=== PATIENT | female | born 1970 | race African-American/Black ===

== ENCOUNTER → 2021-03-31 09:49 | Outpatient (BNVA) | payer MEDICAID, SELFPAY | PROVIDERS: PCP Internal Medicine; Visit Provider Surgery | DX: E66.01 Morbid (severe) obesity due to excess calories (principal); G47.33 Obstructive sleep apnea (adult) (pediatric); Z68.43 Body mass index [BMI] 50.0-59.9, adult; Z88.5 Allergy status to narcotic agent; Z88.6 Allergy status to analgesic agent; Z91.040 Latex allergy status; Z99.89 Dependence on other enabling machines and devices; Z79.899 Other long term (current) drug therapy | CPT/HCPCS: 99202 ==

== ENCOUNTER 2021-04-03 10:31 | Outpatient (REF) | payer MEDICAID, SELFPAY ==
--- NOTE | ~2021-04-03 | XR_ITS ---
EXAMINATION: XR CHEST CLINICAL INFORMATION: Shortness of breath COMPARISON: None TECHNIQUE: 2 views of the chest were obtained. FINDINGS: The lungs are well-expanded and clear. The heart size and pulmonary vascularity is normal. No gross bony abnormality seen. XR/XR chest 2V IMPRESSION: Unremarkable chest exam.
--- NOTE | 2021-04-03 10:42 | ECG_ITS ---
Test Reason : R06.02 Blood Pressure : / mmHG Vent. Rate : 058 BPM Atrial Rate : 058 BPM P-R Int : 144 ms QRS Dur : 098 ms QT Int : 454 ms P-R-T Axes : 053 056 036 degrees QTc Int : 445 ms Sinus bradycardia Possible Left atrial enlargement Left ventricular hypertrophy Abnormal ECG No previous ECGs available Referred By: Blanka Nunez Electronically Signed By:LIBAN SCHAEFER MD
[2021-04-03 11:20] LABS: MANUAL DIFF FLAG NO
[2021-04-03 11:37] LABS: Basophils Percent Auto 0.5 % (0-2); Eosinophils Absolute Auto 0.1 X10*3/uL (0.0-0.4); Hematocrit 39.1 % (37-47); Hemoglobin 12.3 g/dl (12.0-16.0); Imm Gran Abs Auto 0.03 X10*3/uL (0.00-0.03); Imm Gran Pct Auto 0.5 % (0.0-0.4); Lymphocytes Absolute Auto 1.7 X10*3/uL (1.2-4.9); Lymphocytes Percent Auto 26.8 % (20-40); Mean Corpuscular HGB Conc 31.5 g/dl (31.0-35.0); Mean Corpuscular Hemoglobin 27.8 pg (27.0-33.0); Mean Corpuscular Volume 88.3 fL (80-98); Mean Platelet Volume 10.1 fL (9.4-12.3); Monocytes Absolute Auto 0.5 X10*3/uL (0.1-1.2); Monocytes Percent Auto 7.5 % (2-11); Neutrophils Percent Auto 63.7 % (45-73); Platelet Count 285 X10*3/uL (160-400); Red Blood Count 4.43 X10*6/uL (4.20-5.50); Red Cell Distribution Width 13.2 % (11.0-16.0); White Blood Count 6.3 X10*3/uL (4.8-10.8)
[2021-04-03 12:18] LABS: Thyroid Stimulating Hormone 4.11 uIU/mL (0.32-4.0); Vitamin D 25-OH Total 17.2 ng/mL (>30)
[2021-04-03 12:24] LABS: Alanine Aminotransferase 18 U/L (0-31); Albumin Level 4.3 g/dL (3.5-5.0); Alkaline Phosphatase 103 U/L (39-117); Anion Gap 11 (12-20); Aspartate Amino Transferase 19 U/L (5-31); Bilirubin Total 0.7 mg/dL (0.0-1.0); Blood Urea Nitrogen 13 mg/dL (9-16); C Reactive Protein 0.53 mg/dL (< or = 0.50); Calcium 9.2 mg/dL (8.4-10.2); Carbon Dioxide 27 mmol/L (22-29); Chloride 105 mmol/L (96-108); Cholesterol 190 mg/dL; Estimated Glomerular Filt Rate > 60; Glucose Fasting 89 mg/dL (60-99); HDL Cholesterol 62 mg/dL; Iron 106 mcg/dL (30-160); LDL Cholesterol Calculated 111 mg/dl; Percent Iron Saturation 25 % (15-50); Potassium 4.3 mmol/L (3.3-5.1); Sodium 139 mmol/L (135-145); Total Iron Binding Capacity 431 mcg/dL (228-428); Total Protein 7.1 g/dL (6.5-8.0); Triglycerides 85 mg/dL; Unsaturated Iron Binding 325 ug/dL; Vitamin B12 240 pg/mL (200-900)
[2021-04-03 13:12] LABS: Estimated Average Glucose 105 mg/dL; Hemoglobin A1c % 5.3 %
[2021-04-05 10:26] LABS: Calcium (PTHI) 8.8 mg/dL (8.6-10.2); PTHI 60 pg/mL (14-64)
[2021-04-06 00:36] LABS: Zinc 71 mcg/dL (60-130)
[2021-04-07 13:27] LABS: Vitamin B1 9 nmol/L (8-30)
[2021-04-07 17:57] LABS: Vitamin A 34 mcg/dL (38-98)
== END 2021-04-03 10:32 | disposition home or self-care (01) ==
LOC: HO.LAB 10:31
PROVIDERS: PCP Internal Medicine; Visit Provider Surgery
DX: Z01.818 Encounter for other preprocedural examination (principal); R06.02 Shortness of breath; K91.2 Postsurgical malabsorption, not elsewhere classified; Z90.3 Acquired absence of stomach [part of]
CPT/HCPCS: 36415; 71046; 80053; 80061; 82306; 82607; 83036; 83540; 83970; 84425; 84443; 84590; 84630; 85025; 86140; 93005

== ENCOUNTER 2021-04-14 14:47 | Outpatient (REF) | payer MEDICAID, SELFPAY ==
[2021-04-15 14:57] LABS: H Pylori Breath Test DETECTED (NOT DETECTED)
== END 2021-04-14 14:48 | disposition home or self-care (01) ==
LOC: HO.LNP 14:47
PROVIDERS: Surgery; PCP Internal Medicine; Referring Provider Internal Medicine; Visit Provider Physician Assistant
DX: Z01.818 Encounter for other preprocedural examination (principal); E66.01 Morbid (severe) obesity due to excess calories; Z68.43 Body mass index [BMI] 50.0-59.9, adult; Z71.3 Dietary counseling and surveillance
CPT/HCPCS: 83013; 99212

== ENCOUNTER → 2021-04-28 10:05 | Outpatient (BNVA) | payer MEDICAID, SELFPAY | PROVIDERS: PCP Internal Medicine; Visit Provider Dietitian, Registered | DX: E66.01 Morbid (severe) obesity due to excess calories (principal) | CPT/HCPCS: 97802 ==

== ENCOUNTER → 2021-05-12 10:29 | Outpatient (BNVA) | payer MEDICAID, SELFPAY | PROVIDERS: PCP Internal Medicine; Visit Provider Surgery | DX: E66.01 Morbid (severe) obesity due to excess calories (principal); Z68.43 Body mass index [BMI] 50.0-59.9, adult | CPT/HCPCS: 99212 ==

== ENCOUNTER → 2021-05-19 08:24 | Outpatient (BNVA) | payer MEDICAID, SELFPAY | PROVIDERS: PCP Internal Medicine; Visit Provider Dietitian, Registered ==

== ENCOUNTER 2021-06-08 13:47 | Outpatient (REF) | payer MEDICAID, SELFPAY ==
[2021-06-10 15:07] LABS: H Pylori Breath Test NOT DETECTED (NOT DETECTED)
== END 2021-06-08 13:48 | disposition home or self-care (01) ==
LOC: HO.LNP 13:47
PROVIDERS: PCP Internal Medicine; Visit Provider Surgery
DX: E66.01 Morbid (severe) obesity due to excess calories (principal); Z68.43 Body mass index [BMI] 50.0-59.9, adult; Z11.0 Encounter for screening for intestinal infectious diseases
CPT/HCPCS: 83013; 99212

== ENCOUNTER → 2021-06-14 08:10 | Outpatient (BNVA) | payer MEDICAID, SELFPAY | PROVIDERS: PCP Internal Medicine; Visit Provider Dietitian, Registered | DX: E66.01 Morbid (severe) obesity due to excess calories (principal); Z68.43 Body mass index [BMI] 50.0-59.9, adult | CPT/HCPCS: 97803 ==

== ENCOUNTER → 2021-07-14 13:15 | Outpatient (BNVA) | payer MEDICAID, SELFPAY | PROVIDERS: PCP Internal Medicine; Referring Provider Internal Medicine; Visit Provider Surgery ==

== ENCOUNTER → 2021-08-09 13:58 | Outpatient (BNVA) | payer MEDICAID, SELFPAY | PROVIDERS: PCP Internal Medicine; Visit Provider Physician Assistant Surgical | DX: E66.01 Morbid (severe) obesity due to excess calories (principal); Z68.43 Body mass index [BMI] 50.0-59.9, adult | CPT/HCPCS: 99212 ==

== ENCOUNTER → 2021-10-17 08:13 | Outpatient (BNVA) | payer MEDICAID, SELFPAY | PROVIDERS: PCP Internal Medicine; Visit Provider Physician Assistant Surgical ==

== ENCOUNTER → 2021-12-26 08:17 | Outpatient (BNVA) | payer MEDICAID, SELFPAY | PROVIDERS: PCP Internal Medicine; Visit Provider Physician Assistant Surgical ==

== ENCOUNTER 2024-05-04 12:52 | Outpatient (REF) | payer MEDICAID, SELFPAY ==
[2024-05-05 01:46] LABS: CT PCR NOT DETECTED (Not Detect.); NG PCR NOT DETECTED (Not Detect.)
[2024-05-05 11:51] LABS: Bacterial Vaginosis PCR NEGATIVE (Negative); Candida Group PCR NOT DETECTED (Not Detect); Candida glab krusei PCR NOT DETECTED (Not Detect); Trichomonas vaginalis PCR NOT DETECTED (Not Detect)
== END 2024-05-04 12:53 | disposition home or self-care (01) ==
LOC: HO.LNP 12:52
PROVIDERS: PCP Internal Medicine; Visit Provider Advanced Practice Midwife
DX: Z01.419 Encounter for gynecological examination (general) (routine) without abnormal findings (principal); E66.01 Morbid (severe) obesity due to excess calories
CPT/HCPCS: 0352U; 87491; 87591; 88175; 99386

== ENCOUNTER 2024-05-04 12:52 | Outpatient (AMB) | payer MEDICAID, SELFPAY ==
--- NOTE | 2024-05-04 13:41 | MHC.OFFVIS ---
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 Allergies acetaminophen [From Percocet] Allergy (Unknown, Verified 08/09/21 14:12) RASH latex [Latex] Allergy (Unknown, Verified 08/09/21 14:12) ITCHY, RASH , AND FUNGUS Opioids - Morphine Analogues Adverse Reaction (Severe, Verified 08/09/21 14:12) Shortness of Breath From Percocet Allergy (Unknown, Uncoded 08/09/21 14:12) RASH Medication List - Last Reconciled 05/04/24 by Anais Clark CNM albuterol sulfate 90 mcg/actuation (Proventil HFA) 2 puffs inhalation Q6H PRN benzonatate 100 mg PO TID cholecalciferol (vitamin D3) 1,250 mcg PO QWEEK fexofenadine 180 mg PO DAILY furosemide 40 mg PO DAILY ibuprofen 800 mg PO TID vitamin A palmitate 20,000 units PO DAILY 30 days Is last menstrual period known: Yes (Said she had a lot of blood and a big clot, cramping down legs) Last menstrual period: 04/30/24 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 Patient has moved from [place] to [facility] in [place] in November and she wants to locate all of her healthcare in [place] because it is easier to get to now. She is overweight she is hoping she can get the injection to help her with weight loss when she sees her new PCC who she meets in May. She also has been referred to see an orthopedic doctor because her knees very bad. Additionally because of the weight her heart beats very slow and she is on medication to help her excrete more urine/Lasix. Also for the last 2 years her periods have become much heavier and cramp ear and hurt her legs and her abdomen and her back. She gets hot flashes but shows no other signs of menopause yet her mother went through menopause at age 47. She has 6 children all born in [place] and the oldest is in the 30s. She is being seen today in the [facility] office at the [address] site and she used to come to the [facility] for primary Care years ago and is glad to be coming back here. [facility] Medical History Acute appendicitis Acute bacterial tonsillitis Anal fistula Enlarged lymph node Family history of heart murmur History of anxiety History of asthma History of claustrophobia History of knee problem Hx of bursitis Hx of chronic arthritis Hx of tendinitis Kidney stone Sinus complaint Sterilization Vesicular dermatitis Surgical History History of Achilles tendon repair History of kidney surgery Hx of appendectomy Hx of breast surgery Hx of cholecystectomy Hx of knee surgery Hx of tonsillectomy Hx of tubal ligation Family History Mother Accelerated hypertension Arthritis Cancer of stomach Father Arthritis Sister No problems noted. Sister Arthritis Accelerated hypertension Sister No problems noted. Sister No problems noted. Brother Overdose Brother HIV disease Son Asthma Son No problems noted. Son No problems noted. Son No problems noted. Daughter No problems noted. Social History Alcohol intake: never Patient Tobacco Use Status: Never used Tobacco Female Reproductive History Menstrual Age of Menarche: 14 Duration of menses: >10 days Date of last menstrual period: 04/30/24 Total pregnancies: 7 Number of Living Children: 5 Ab induced: 1 Ab spontaneous: 1 History of abnormal pap smear: No History of STI: No Physical Exam Vital Signs: Last Vital Signs BP 146/86 H 05/04/24 13:43 BMI result Body Mass Index 53.9 Const Other: Obesity especially lower body and legs. General: healthy appearing, comfortable, no acute distress, well developed and alert Nutritional Appearance: average body habitus and obese Orientation/consciousness: patient oriented x3 Limitations: no limitations HEENT Head: Yes normocephalic Neck Neck: Yes normal visual inspection Thyroid: Thyroid normal Chest Chest palpation & inspection: normal inspection of the chest Breast/axilla inspection: normal inspection of the breasts and normal inspection of the axillae Breast/axilla palpation: normal palpation of the breasts and normal palpation of the axillae Resp Effort & Inspection: normal respiratory effort GI Inspection: Yes normal to inspection, No Abdominal wall edema and No distended Palpation (GI): Soft to palpation and nontender Other: Pelvic exam limited by obesity habitus. Vagina pink and moist mucosa healthy cervix visualized briefly for Pap pink smooth healthy appearing but limited visualization uterus difficult to palpate secondary to habitus adnexa difficult to palpate neither tender. Good muscle tone. General: Yes bladder normal to palpation External Female Exam: normal external appearance and normal appearance of the urethra Speculum Exam - Vagina: normal appearance of the vagina, normal palpation and normal vaginal discharge Speculum Exam - Cervix: normal appearance of the cervix, normal palpation and nontender Bimanual exam- vagina & uterus: normal bimanual exam, normal palpation, uterine size normal, bladder normal to palpation, consistency normal, normal palpation, uterine mobility normal, uterine shape normal, No Cervical tenderness present, non-tender and no cervical motion tenderness Bimanual Exam- Adnexa, other: normal adnexae, no masses, normal and No adnexal tenderness Neuro General: patient oriented x3 Assessment & Plan Assessment & Plan (1) Morbid obesity with BMI of 50.0-59.9, adult: Code(s): E66.01 - Morbid (severe) obesity due to excess calories; Z68.43 - Body mass index [BMI] 50.0-59.9, adult Category: Medical (2) History of menorrhagia: Comment: Worse the last 2 yrs Code(s): Z87.42 - Personal history of other diseases of the female genital tract Category: Medical (3) Left leg swelling: Code(s): M79.89 - Other specified soft tissue disorders Category: Medical Plan -----Discussed in this visit the following: healthy balanced diet, regular and consistent exercise, getting recommended health screens, doing the best she can for her particular health concerns, kegel exercises, pap smear screening and followup recommendations, mammography screening and SBE, normal changes in cycles in her life stage--- . She says she is up-to-date on her mammograms. She got it most recently Jennifer Rivera. She thinks she might have had an abnormal Pap a few years ago but those records are not included in records that were found from [facility]. In regards to her heavy menses I offered to order a pelvic ultrasound to see if she might have fibroids were some other reason for the heavy menstrual flow with blood clots. She will be meeting her new primary care provider soon, and plans to ask for the injection to help her with weight loss. She would otherwise be interested in the surgery as well but she wants to try the medication 1st. She also has a referral pending for orthopedics to deal with her knees and also for Cardiology to deal with her heart.. She and I will have a visit after the ultrasound to review the results. If there are fibroids or some other finding that requires gynecologic consultation she will be referred appropriately. Her Pap smear was done but with some difficulty secondary to habitus prohibiting any easy visualization cervix but did appear pink and with health mucosa that was moist consistent with premenopausal status. No abnormal discharge noted Orders: Orders US pelvic and transvaginal Today E66.01 - Morbid (severe) obesity due to excess calories, Z68.43 - Body mass index [BMI] 50.0-59.9, adult, Z87.42 - Personal history of other diseases of the female genital tract Coding Level of Care Code New Pt Prev Care 40-64y(16769) Diagnoses Morbid obesity with BMI of 50.0-59.9, adult E66.01; Z68.43 History of menorrhagia Z87.42 Left leg swelling M79.89
[2024-05-04 13:43] VITALS: BP 146/86; BMI 53.9
== END 2024-05-04 15:07 | disposition home or self-care (01) ==
LOC: HO.HWSM 12:52
PROVIDERS: PCP Internal Medicine; Visit Provider Advanced Practice Midwife
DX: Z01.419 Encounter for gynecological examination (general) (routine) without abnormal findings (principal); M79.89 Other specified soft tissue disorders; E66.01 Morbid (severe) obesity due to excess calories; Z68.43 Body mass index [BMI] 50.0-59.9, adult; Z87.42 Personal history of other diseases of the female genital tract
CPT/HCPCS: 99386

== ENCOUNTER 2024-05-14 11:41 | Emergency (ER) | payer MEDICAID, SELFPAY ==
[2024-05-14 12:19] VITALS: BP 174/74; PULSE 62; RESP 20; TEMP 36.7; O2SAT 97; BMI 57.4
--- NOTE | 2024-05-14 12:19 | ECG_ITS ---
Test Reason : CHEST PAIN Blood Pressure : / mmHG Vent. Rate : 062 BPM Atrial Rate : 062 BPM P-R Int : 154 ms QRS Dur : 094 ms QT Int : 432 ms P-R-T Axes : 051 053 042 degrees QTc Int : 438 ms Normal sinus rhythm Normal ECG When compared with ECG of 03-APR-2021 10:50, No significant change was found Referred By: Generic ED Physician Electronically Signed By:LIBNA SCHAEFER MD
[2024-05-14 12:32] VITALS: BP 149/64; PULSE 61; RESP 20; TEMP 36.8; O2SAT 96
[2024-05-14 12:43] LABS: MANUAL DIFF FLAG NO
[2024-05-14 12:45] LABS: Appearance Urine Clear; Color Urine Yellow; Glucose Urine UA Negative (Negative); Leukocyte Esterase Urine Small (1+) (Negative); Nitrite Urine Negative (Negative); PH 7.5 (5.0-9.0); UMIC TRIGGER UACC YES; Urine Blood Negative (Negative); Urine Ketones Negative (Negative); Urine Protein Negative (Neg-Trace)
[2024-05-14 12:48] LABS: Bacteria Urine 1+ (None Seen); Basophils Percent Auto 0.6 % (0-2); Eosinophils Absolute Auto 0.1 X10*3/uL (0.0-0.4); Eosinophils Percent Auto 1.1 % (0-4); Hematocrit 40.4 % (37.0-47.0); Hemoglobin 12.7 g/dl (12.0-16.0); Hyaline Casts Urine 0-2 /LPF (0-2); Imm Gran Abs Auto 0.05 X10*3/uL (0.00-0.03); Imm Gran Pct Auto 0.8 % (0.0-0.4); Lymphocytes Absolute Auto 1.9 X10*3/uL (1.2-4.9); Lymphocytes Percent Auto 29.8 % (20-40); Mean Corpuscular HGB Conc 31.4 g/dl (31.0-35.0); Mean Corpuscular Volume 89.2 fL (80.0-98.0); Mean Platelet Volume 9.7 fL (9.4-12.3); Monocytes Absolute Auto 0.4 X10*3/uL (0.1-1.2); Neutrophils Absolute Auto 3.8 x10*3/uL (2.0-8.3); Neutrophils Percent Auto 60.7 % (45-73); Platelet Count 258 X10*3/uL (160-400); RBC Urine 0-2 /HPF (0-2); Red Blood Count 4.53 X10*6/uL (4.20-5.50); Red Cell Distribution Width 13.3 % (11.0-16.0); UACC Culture Trigger YES; White Blood Count 6.3 X10*3/uL (4.8-10.8)
[2024-05-14] MEDS: 0.9 % Sodium Chloride 1,000 ML 999 ML IV (12:52)
[2024-05-14 13:00] LABS: Alanine Aminotransferase 17 U/L (0-31); Albumin Level 4.2 g/dL (3.5-5.0); Alkaline Phosphatase 122 U/L (39-117); Anion Gap 12 (12-20); Aspartate Amino Transferase 16 U/L (5-31); Bilirubin Total 0.3 mg/dL (0.0-1.0); Blood Urea Nitrogen 14 mg/dL (9-16); Calcium 9.5 mg/dL (8.4-10.2); Carbon Dioxide 30 mmol/L (22-29); Chloride 102 mmol/L (96-108); Creatinine Clr Calc Pharmacy 181.6; Estimated Glomerular Filt Rate > 60; Glucose Random 96 mg/dL (60-115); Magnesium 1.9 mg/dL (1.6-2.6); Potassium 4.3 mmol/L (3.3-5.1); Sodium 140 mmol/L (135-145); Total Protein 7.4 g/dL (6.5-8.0)
--- NOTE | 2024-05-14 14:33 | ED.CHESTPAIN ---
HPI - Chest Pain General Chief Complaint: Chest Pain Stated Complaint: Dizziness Time Seen by Provider: 05/14/24 13:36 Source: patient Mode of arrival: ambulatory History of Present Illness ED Provider: Dr Alvarado HPI narrative: 54-year-old female who within the triage note reports some dizziness and lightheadedness for the past 5 days, has recently recovered from COVID 19 and does report associated nausea with the dizziness but otherwise also reports some shortness of breath but when asked about chest pain she denies and she also denies GI or symptoms. Related Data Home Medications ?Medication ?Instructions ?Recorded ?Confirmed albuterol sulfate 90 mcg/actuation 2 puff inhalation Q6H PRN 03/31/21 05/04/24 aerosol inhaler (Proventil HFA) benzonatate 100 mg capsule 100 mg PO TID 03/31/21 05/04/24 fexofenadine 180 mg tablet 180 mg PO DAILY 03/31/21 05/04/24 ibuprofen 800 mg tablet 800 mg PO TID 03/31/21 05/04/24 furosemide 40 mg tablet 40 mg PO DAILY 05/04/24 05/04/24 Previous Rx's ?Medication ?Instructions ?Recorded cholecalciferol (vitamin D3) 1,250 1,250 mcg PO QWEEK #4 caps 04/03/21 mcg (50,000 unit) capsule vitamin A palmitate 3,000 mcg 20,000 unit PO DAILY 30 days #60 04/17/21 (10,000 unit) tablet tabs nitrofurantoin 100 mg PO Q12H 5 days #10 caps 05/14/24 monohydrate/macrocrystals 100 mg capsule (Macrobid) Allergies Allergy/AdvReac Type Severity Reaction Status Date / Time acetaminophen [From Percocet] Allergy Unknown RASH Verified 05/14/24 12:22 latex [Latex] Allergy Unknown ITCHY, Verified 05/14/24 12:22 RASH , AND FUNGUS Opioids - Morphine Analogues AdvReac Severe Shortness Verified 05/14/24 12:22 of Breath From Percocet Allergy Unknown RASH Uncoded 08/09/21 14:12 Review of Systems Review of Systems: Pertinent positives and negatives as stated in HPI PMF Past Medical History Source: nursing notes reviewed Medical History Anal fistula Sinus complaint Sterilization Kidney stone Acute appendicitis Vesicular dermatitis Enlarged lymph node Acute bacterial tonsillitis History of claustrophobia History of anxiety Hx of tendinitis Hx of bursitis History of knee problem Hx of chronic arthritis Family history of heart murmur History of asthma Surgical History History of kidney surgery Hx of tubal ligation Hx of tonsillectomy Hx of breast surgery Hx of appendectomy Hx of cholecystectomy Hx of knee surgery History of Achilles tendon repair Family History Family History Mother Accelerated hypertension Arthritis Cancer of stomach Father Arthritis Sister No problems noted. Sister Arthritis Accelerated hypertension Sister No problems noted. Sister No problems noted. Brother Overdose Brother HIV disease Son Asthma Son No problems noted. Son No problems noted. Son No problems noted. Daughter No problems noted. Social History Social History Alcohol intake: former Patient Tobacco Use Status: Never used Tobacco Smoked in Last 30 Days: No Use of substances other than those prescribed or required for medical reasons: No Advance Directives: No Advance Directives Information Provided: Yes Do you have a plan to hurt others: No Plan Physical Exam Vital Signs: Vital Signs: Last Vital Signs Temp 98.1 F 05/14/24 15:10 Pulse 62 05/14/24 15:10 Resp 17 05/14/24 15:10 BP 155/79 H 05/14/24 15:10 Pulse Ox 97 05/14/24 15:10 O2 Del Method Room Air 05/14/24 15:10 BMI result Body Mass Index 57.4 VITAL SIGNS: Reviewed. GENERAL: Elevated BMI, Well developed, well nourished, in no acute distress. HEAD: Normocephalic/atraumatic EYES: PERRLA, EOMI EARS: Ext canals without abnormality NOSE: Nares patent bilateral OROPHARYNX: no oral lesions noted, posterior pharynx clear NECK: Supple, no adenopathy LUNGS: Normal breath sounds. No adventitious sounds or accessory muscle use. SpO2<96> CARDIOVASCULAR: Regular rate and rhythm without noted murmurs, no JVD or lower extremity edema. ABDOMEN: Soft, non-tender, non-distended with bowel sounds. MUSCULOSKELETAL: No tenderness, deformities, or effusions noted on gross inspection. EXTREMITIES: No cyanosis, clubbing or edema. SKIN: Inspection of the skin reveals no rashes NEUROLOGIC: Alert and oriented x 4. Strength and sensation to light touch were grossly intact x 4, no facial asymmetry, no pronator drift, cranial nerves 2-12 are grossly intact. Medications Administered Discontinued Medications Generic Name Dose Route Start Last Admin Trade Name Freq PRN Reason Stop Dose Admin Sodium Chloride 1,000 mls @ 999 mls/hr 05/14/24 12:30 05/14/24 12:52 Ns IV 05/14/24 13:30 999 mls/hr .Q1H1M SHERLYN Administration Medical Decision Making Medical Decision Making MDM Narrative: 54-year-old female with history and clinical presentation, DDX: Post COVID symptoms, poor oral intake, vertigo, will evaluate for cardiac etiology. I reviewed and interpreted all investigations and hematologic indices are negative for leukocytosis/anemia/thrombocytopenia. Chemistry indices do not demonstrate an ADELSO or electrolyte/liver enzyme derangements and high sensitivity troponin is undetectable and there are no acute changes on EKG. Urinalysis demonstrates leukocyte esterase as well as wbc's with some bacteria. EKG: Normal sinus rhythm, HR-62, no STEMI, NV/QRS/QTC is within normal limits. My interpretation is patient may be feeling some residual post COVID symptoms but also will be empirically treated for urinary tract infection and instructed to follow-up with the primary care doctor. Differential Diagnosis Differential Diagnoses: The differential diagnosis associated with the presentation includes Please see the discussion above Admission/Observation Consideration of admission/observation: Escalation of care including admission/observation considered Please see the discussion above Lab Data [facility] Lab Attestation statement: I reviewed the patient's lab results. Please see the discussion above 05/14/24 12:35 05/14/24 12:35 Labs: Lab Results 05/14/24 Range/Units 12:35 WBC 6.3 (4.8-10.8) X10*3/uL RBC 4.53 (4.20-5.50) X10*6/uL Hgb 12.7 (12.0-16.0) g/dl Hct 40.4 (37.0-47.0) % MCV 89.2 (80.0-98.0) fL MCH 28.0 (27.0-33.0) pg MCHC 31.4 (31.0-35.0) g/dl RDW 13.3 (11.0-16.0) % Plt Count 258 (160-400) X10*3/uL MPV 9.7 (9.4-12.3) fL Immature Gran % (Auto) 0.8 H (0.0-0.4) % Neut % (Auto) 60.7 (45-73) % Lymph % (Auto) 29.8 (20-40) % [place] % (Auto) 7.0 (2-11) % Eos % (Auto) 1.1 (0-4) % Baso % (Auto) 0.6 (0-2) % Lymph # (Auto) 1.9 (1.2-4.9) X10*3/uL [place] # (Auto) 0.4 (0.1-1.2) X10*3/uL Eos # (Auto) 0.1 (0.0-0.4) X10*3/uL Baso # (Auto) 0.0 (0.0-0.2) X10*3/uL Abs Immat Gran (auto) 0.05 H (0.00-0.03) X10*3/uL Absolute Neuts (auto) 3.8 (2.0-8.3) x10*3/uL Absolute Nucleated RBC 0.000 (0.0-0.012) X10*3/uL Nucleated RBC % (auto) 0.0 (0.0-0.2) /100WBC Sodium 140 (135-145) mmol/L Potassium 4.3 (3.3-5.1) mmol/L Chloride 102 (96-108) mmol/L Carbon Dioxide 30 H (22-29) mmol/L Anion Gap 12 (12-20) BUN 14 (9-16) mg/dL Creatinine 0.63 (0.5-1.4) mg/dL Estim Creat Clear Calc 181.6 Estimated GFR > 60 Random Glucose 96 (60-115) mg/dL Calcium 9.5 (8.4-10.2) mg/dL Magnesium 1.9 (1.6-2.6) mg/dL Total Bilirubin 0.3 (0.0-1.0) mg/dL AST 16 (5-31) U/L ALT 17 (0-31) U/L Alkaline Phosphatase 122 H (39-117) U/L Troponin I High Sens < 2.7 (<3.5-17.0) ng/L B-Natriuretic Peptide 15 (<100) pg/mL Total Protein 7.4 (6.5-8.0) g/dL Albumin 4.2 (3.5-5.0) g/dL Urine Color Yellow Urine Appearance Clear Urine pH 7.5 (5.0-9.0) Ur Specific [place] 1.020 (1.005-1.025) Urine Protein Negative (Neg-Trace) mg/dL Urine Glucose (UA) Negative (Negative) mg/dL Urine Ketones Negative (Negative) mg/dL Urine Blood Negative (Negative) Urine Nitrite Negative (Negative) Ur Leukocyte Esterase Small (1+) H (Negative) Urine RBC 0-2 (0-2) /HPF Urine WBC 6-10 H (0-5) /HPF Ur Squamous Epith Cells 6-10 (0-2) /HPF Urine Bacteria 1+ (None Seen) Hyaline Casts 0-2 (0-2) /LPF Independent Interpretation I performed an independent interpretation of an: EKG Interpretation: Please see the discussion above External Record Review External record reviewed: Outpatient record, Prior outpatient labs and Prior outpatient radiology Chronic Conditions Patient?s care impacted by: Hypertension Critical Care Time Critical Care Time Critical Care Time: Yes Total Critical Care Time: 30 Attestation: I personally attest to this time spent taking care of the patient. Discharge Plan Discharge Clinical Impression: Urinary tract infection, Light-headedness Patient Disposition: Home, Self-Care Instructions: Urinary Tract Infection in Women (ED), Lightheadedness (ED) Additional Instructions: 1. Resume all home medications as prescribed. 2. Complete the entire course of antibiotics as prescribed. And continue to drink plenty of water. 3. Follow-up with your primary care doctor. Return to the ER for any worsening symptoms. Prescriptions: New nitrofurantoin monohyd/m-cryst [Macrobid] 100 mg capsule 100 mg PO Q12H 5 Days Qty: 10 0RF Rx Instructions: must administer with a meal/food No Action cholecalciferol (vitamin D3) 1,250 mcg (50,000 unit) capsule 1,250 mcg PO QWEEK Qty: 4 1RF vitamin A palmitate 10,000 unit tablet 20,000 unit PO DAILY 30 Days Qty: 60 0RF ibuprofen 800 mg tablet 800 mg PO TID albuterol sulfate [Proventil HFA] 90 mcg/actuation HFA aerosol inhaler 2 puff inhalation Q6H PRN benzonatate 100 mg capsule 100 mg PO TID fexofenadine 180 mg tablet 180 mg PO DAILY furosemide 40 mg tablet 40 mg PO DAILY Print Language: Citizen [place]
[2024-05-14 15:05] LABS: B Type Natriuretic Peptide 15 pg/mL (<100)
[2024-05-14 15:09] LABS: Troponin-I High Sensitivity < 2.7 ng/L (<3.5-17.0)
[2024-05-14 15:10] VITALS: BP 155/79; PULSE 62; RESP 17; TEMP 36.7; O2SAT 97
[2024-05-14 16:23] VITALS: BP 128/59; PULSE 64; RESP 18; TEMP 37.1; O2SAT 98
[2024-05-14] MEDS: Nitrofurantoin Monohyd/M-Cryst 100 MG CAPSULE PO (16:24)
== END 2024-05-14 16:39 | disposition home or self-care (01) ==
PROVIDERS: Physician Assistant Medical; Emergency Provider Student in an Organized Health Care Education/Training Program
DX: N39.0 Urinary tract infection, site not specified (principal); R42 Dizziness and giddiness; R07.9 Chest pain, unspecified; R11.0 Nausea; R06.02 Shortness of breath; Z79.899 Other long term (current) drug therapy
CPT/HCPCS: 36415; 80053; 81001; 83735; 83880; 84484; 85025; 87086; 93005; 96360; 96361; 99284; 99285

== ENCOUNTER → 2024-05-14 12:19 | Outpatient (BNV) | payer MEDICAID, SELFPAY | PROVIDERS: Emergency Provider Student in an Organized Health Care Education/Training Program; Visit Provider Internal Medicine Cardiovascular Disease | DX: R07.9 Chest pain, unspecified (principal) | CPT/HCPCS: 93010 ==

== ENCOUNTER 2024-05-20 10:31 | Outpatient (REF) | payer MEDICAID, SELFPAY ==
--- NOTE | ~2024-05-20 | US_ITS ---
EXAMINATION: US PELVIS CLINICAL INFORMATION: Menorrhagia COMPARISON: None available. TECHNIQUE: Ultrasound of the pelvis is performed using both transabdominal and transvaginal transducers along with Doppler. Transvaginal imaging is performed due to inadequate visualization transabdominally. FINDINGS: Uterus: The anteverted uterus is normal in size and echotexture measuring 8.3 x 3.6 x 4.6 cm with a normal endometrial thickness of 6 mm. Small endocervical nabothian cysts are noted. Adnexa: The right ovary measures 3.3 x 2 0.0, 0.1 0.8 cm. The left ovary measures 1.6 x 1.6 x 1.2 cm and contains an 18 mm follicle. (No specific imaging follow-up is needed). No free fluid is detected in the cul-de-sac. US/US pelvic and transvaginal IMPRESSION: Unremarkable pelvic ultrasound
== END 2024-05-20 10:32 | disposition home or self-care (01) ==
LOC: HO.US 10:31
PROVIDERS: PCP Internal Medicine; Visit Provider Advanced Practice Midwife
DX: E66.01 Morbid (severe) obesity due to excess calories (principal); Z68.43 Body mass index [BMI] 50.0-59.9, adult; Z87.42 Personal history of other diseases of the female genital tract
CPT/HCPCS: 76830; 76856

== ENCOUNTER → 2024-05-28 14:41 | Outpatient (BNVA) | payer MEDICAID, SELFPAY | PROVIDERS: PCP Family Medicine; Visit Provider Physician Assistant Surgical ==

== ENCOUNTER 2024-06-05 13:56 | Outpatient (AMB) | payer MEDICAID, SELFPAY ==
--- NOTE | 2024-06-05 14:38 | MHC.OFFVIS ---
Vital Signs 06/05/24 14:40 Height 5 ft 8 in Weight 376 lb 9 oz BMI 57.2 Handedness Right Intake Visit Reasons: N/P B/L hand CTS EMG done years ago Intake Note: Ladonna is a 54 year old right hand dominant female who presents today as a new patient with complaints of bilateral hand pain and numbness. Right hand is worse than left hand. Patient states she has been having pain and numbness since 2010 but it worsened 4-5 months ago. She is unable to sleep due to her symptoms so she has to shake her hands. She says her pain, numbness and tingling starts at her 3rd, 4th, and 5th digit of both hands and radiates up her arm into her elbows and to her neck. She has difficulty with gripping, grasping, holding objects and lifting. She has dropped objects due to weakness in her hands. She describes the tingling in her hands as electrical current that does not go away. EMG was done many years ago in [id number] in [facility]. Loss Prevention Detective Required: Yes Loss Prevention Detective Language: [employer] Name: [id number] Allergies acetaminophen [From Percocet] Allergy (Unknown, Verified 06/11/24 14:44) RASH latex [Latex] Allergy (Unknown, Verified 06/11/24 14:44) ITCHY, RASH , AND FUNGUS Opioids - Morphine Analogues Adverse Reaction (Severe, Verified 06/11/24 14:44) Shortness of Breath From Percocet Allergy (Unknown, Uncoded 06/05/24 14:49) RASH HPI HPI N/P B/L hand CTS EMG done years ago : Details: Patient is a 54-year-old female who presents for evaluation of bilateral hand pain and numbness, ongoing since approximately 2010. However, the patient reports that she experienced an acute worsening of her symptoms approximately 4-5 months ago.. Patient reports that her symptoms are intermittent, but daily, and worse at night, and then her symptoms regularly prevent her from sleeping or wake her from sleep. The patient reports that she did have an EMG done previously at [facility] in approximately 2011. 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 Patient reports that her her and numbness in his 3rd, 4th, 5th digits of bilateral hands. Patient reports that her right hand is worse than her left hand. Patient reports that her numbness comes and goes, but that she has a constant ?electrical tingling? in those digits. The patient also reports that she is experiencing pain on the radial and volar aspect of bilateral wrists with both flexion and extension. No other acute complaints or concerns at this time. [facility] Medical History Anal fistula Sinus complaint Sterilization Kidney stone Acute appendicitis Vesicular dermatitis Enlarged lymph node Acute bacterial tonsillitis History of claustrophobia History of anxiety Hx of tendinitis Hx of bursitis History of knee problem Hx of chronic arthritis Family history of heart murmur History of asthma Surgical History History of kidney surgery Hx of tubal ligation Hx of tonsillectomy Hx of breast surgery Hx of appendectomy Hx of cholecystectomy Hx of knee surgery History of Achilles tendon repair Family History Mother Accelerated hypertension Arthritis Cancer of stomach Father Arthritis Sister No problems noted. Sister Arthritis Accelerated hypertension Sister No problems noted. Sister No problems noted. Brother Overdose Brother HIV disease Son Asthma Son No problems noted. Son No problems noted. Son No problems noted. Daughter No problems noted. Social History Alcohol intake: former Patient Tobacco Use Status: Never used Tobacco Advance Directives: No Advance Directives Information Provided: No Female Reproductive History Menstrual Age of Menarche: 14 Review of Systems Const All systems reviewed & are unremarkable except as noted in HPI and below Physical Exam Vital Signs: BMI result Body Mass Index 57.2 Extrem Other: Patient is alert, oriented, and in no acute distress. Neuro: Patient reports normal sensation in the median and ulnar nerve distributions of bilateral hands Vascular: Cap refill brisk Pain: Patient reports tenderness to palpation over the volar and radial wrist over the FCR tendon of bilateral wrists Patient reports no other tenderness to palpation at this time ROM: Patient is able to make a closed fist bilaterally Good finger cross Good APB muscle belly firing bilaterally Patient does report pain on the volar and radial aspect of bilateral wrists with extension and flexion Skin: No lacerations or abrasions. General: No ecchymosis, erythema, or evidence of infection. Psych: Appears grossly normal Affect normal Attitude cooperative Assessment & Plan Assessment & Plan (1) Flexor carpi radialis tendinitis: Code(s): M77.8 - Other enthesopathies, not elsewhere classified Category: Medical (2) Numbness and tingling in both hands: Code(s): R20.0 - Anesthesia of skin; R20.2 - Paresthesia of skin Category: Medical Plan 1. Numbness and tingling of bilateral hands Ongoing since approximately 2009 or 2010 Patient has no current nerve conduction study Therefore, patient is referred for new nerve conduction study Patient is amenable to this plan 2. FCR tendinitis, bilateral Patient is referred to occupational hand therapy for bilateral FCR tendinitis Patient is educated that tendinitis is not typically a short term course of rehab, and can take weeks to even months to resolve fully Patient is amenable to this plan Patient will follow-up after nerve conduction study for EMG review and discussion of further treatment options Orders: Orders NE nerve conduction velocity 06/05/24 R20.0 - Anesthesia of skin, R20.2 - Paresthesia of skin OT Evaluation and Treatment 06/05/24 M77.8 - Other enthesopathies, not elsewhere classified NE electromyogram (EMG) 06/05/24 R20.0 - Anesthesia of skin, R20.2 - Paresthesia of skin Coding Level of Care Code New Pt Level 3 (67643) Diagnoses Flexor carpi radialis tendinitis M77.8 Numbness and tingling in both hands R20.0; R20.2
[2024-06-05 14:40] VITALS: BMI 57.2
== END 2024-06-05 15:37 | disposition home or self-care (01) ==
LOC: HO.HOS 13:56
PROVIDERS: PCP Family Medicine
DX: M77.8 Other enthesopathies, not elsewhere classified (principal); R20.0 Anesthesia of skin; R20.2 Paresthesia of skin
CPT/HCPCS: 99203

== ENCOUNTER → 2024-06-05 13:56 | Outpatient (BNVA) | payer MEDICAID, SELFPAY | PROVIDERS: PCP Family Medicine | DX: G56.03 Carpal tunnel syndrome, bilateral upper limbs (principal); M77.8 Other enthesopathies, not elsewhere classified; R20.0 Anesthesia of skin; R20.2 Paresthesia of skin | CPT/HCPCS: 99212 ==

== ENCOUNTER 2024-06-11 13:51 | Emergency (ER) | payer OTHER, SELFPAY ==
--- NOTE | ~2024-06-11 | CT_ITS ---
EXAMINATION: CT CHEST WITH CONTRAST CLINICAL INFORMATION: Mediastinal mass. Etiology? COMPARISON: Abdomen CT from 06/11/2024. TECHNIQUE: Multidetector volumetric CT imaging of the chest was obtained after the administration of 65 mL of Omnipaque 350 intravenous contrast without immediate adverse reactions. Axial MIP volume rendering provided. Sagittal and coronal reformatted images were obtained. This CT examination was performed using dose optimization techniques as appropriate, variously including the following: *Automated exposure control *Adjustment of mA and/or kV according to patient size (this includes techniques or standardized protocols for targeted exams where dose is matched to indication/reason for exam; i.e. extremities or head) *Use of iterative reconstruction technique DLP: 729 mGy-cm FINDINGS: LUNGS AND PLEURA: Trachea and central airways are widely patent and normal in caliber. Mild paraseptal emphysema at lung apices. No pneumothorax or pleural effusion. Small 0.2 cm subpleural nodule in the left upper lobe (image 170, series 5). Based on Fleischner Society guidelines, no chest CT imaging follow-up is recommended in a low-risk patient. Follow-up may be considered optional at 12 months in a high risk patient and if stable at 12 months, then no additional follow-up would be recommended. No suspicious lung nodule or mass. CARDIOVASCULAR: The heart size is normal. No pericardial effusion. Pulmonary arteries and thoracic aorta are normal in caliber. Mild atherosclerotic calcification of the aortic arch. CORONARY ARTERY CALCIFICATION: None detected. MEDIASTINUM AND LOWER NECK: The visualized portion of the thyroid gland and esophagus are normal. A mild amount of soft tissue attenuation intermixed with the mediastinal fat is present in the anterosuperior mediastinum and this likely represents a mild amount of residual thymic tissue. However, there is no mass. LYMPHATICS: No pathologic sized lymph nodes. UPPER ABDOMEN: Patient has a large body habitus and there is mild hepatosplenomegaly. The spleen measures up to 14 cm maximum dimension. Adrenal glands are normal. Status post cholecystectomy. SKELETAL AND CHEST WALL: No chest wall mass. Mild spondylosis of the thoracic spine. No acute or suspicious osseous abnormality. CT/CT chest w IV con IMPRESSION: * There is likely a mild amount of residual thymic tissue within the anterosuperior mediastinum. * No mediastinal mass or lymphadenopathy. * The patient has a large body habitus and there is mild hepatosplenomegaly.
--- NOTE | ~2024-06-11 | CT_ITS ---
EXAMINATION: CT ABDOMEN AND PELVIS WITHOUT CONTRAST CLINICAL INFORMATION: Right flank pain. COMPARISON: Pelvic ultrasound 05/20/2024 TECHNIQUE: Multidetector volumetric imaging was performed from the superior aspect of the liver through the pubic symphysis. Sagittal and coronal reformatted images were obtained on the technologist's workstation. This CT examination was performed using dose optimization techniques as appropriate, variously including the following: *Automated exposure control *Adjustment of mA and/or kV according to patient size (this includes techniques or standardized protocols for targeted exams where dose is matched to indication/reason for exam; i.e. extremities or head) *Use of iterative reconstruction technique DLP: 1518 mGy-cm FINDINGS: LUNG BASES: Irregular soft tissue identified within the anterior superior mediastinum. No pleural or pericardial effusion. LIVER, GALLBLADDER, AND BILIARY TREE: The noncontrast liver is normal in size and contour. No biliary ductal dilatation is present. The gallbladder is surgically absent. PANCREAS: Unremarkable. SPLEEN: Unremarkable. ADRENAL GLANDS: Unremarkable. KIDNEYS AND URETERS: The kidneys are symmetric in size. 3 mm nonobstructing calculi in the upper and lower poles of the left kidney as well as additional punctate nonobstructing calculi in the upper and lower poles. No right renal calculus. No hydronephrosis or perinephric fluid collection. BLADDER: Decompressed limiting evaluation. GASTROINTESTINAL TRACT: Small and large bowel loops are of normal caliber. No small bowel obstruction. ABDOMINAL WALL: No significant hernia is appreciated. LYMPH NODES: No bulky lymphadenopathy. VASCULAR: Normal caliber abdominal aorta. PELVIC VISCERA: Unremarkable. OSSEOUS STRUCTURES: No destructive bone lesions. CT/CT abdomen pelvis wo IV con IMPRESSION: Left-sided nephrolithiasis. No hydronephrosis. Irregular soft tissue identified within the anterior superior mediastinum. Dedicated contrast-enhanced chest CT is recommended.
--- NOTE | 2024-06-11 14:37 | ED.ABDPAIN ---
HPI - Abdominal Pain General Chief Complaint: Urogenital-Female Stated Complaint: abd pain Time Seen by Provider: 06/11/24 18:19 Source: patient Mode of arrival: ambulatory Limitations: no limitations History of Present Illness ED Provider: theodora GANDHI narrative: Patient is 54 years old with history of kidney stones status post cholecystectomy comes here for nonspecific pain in right upper abdomen with nausea and dizziness started earlier today slight dysuria also had some hematuria no shortness a breath no chest pain patient at CT scan done prior to my evaluation which showed status post cholecystectomy without any obstructive hydronephrosis did noticed small soft tissue mass in anterior mediastinum patient had CT scan of the chest done in 11/20 and it was negative according to patient Related Data Home Medications ?Medication ?Instructions ?Recorded ?Confirmed albuterol sulfate 90 mcg/actuation 2 puff inhalation Q6H PRN 03/31/21 05/28/24 aerosol inhaler (Proventil HFA) benzonatate 100 mg capsule 100 mg PO TID 03/31/21 05/28/24 fexofenadine 180 mg tablet 180 mg PO DAILY 03/31/21 05/28/24 ibuprofen 800 mg tablet 800 mg PO TID 03/31/21 05/28/24 furosemide 40 mg tablet 40 mg PO DAILY 05/04/24 05/28/24 Previous Rx's ?Medication ?Instructions ?Recorded cholecalciferol (vitamin D3) 1,250 1,250 mcg PO QWEEK #4 caps 04/03/21 mcg (50,000 unit) capsule vitamin A palmitate 3,000 mcg 20,000 unit PO DAILY 30 days #60 04/17/21 (10,000 unit) tablet tabs nitrofurantoin 100 mg PO Q12H 5 days #10 caps 05/14/24 monohydrate/macrocrystals 100 mg capsule (Macrobid) dicyclomine 20 mg tablet 20 mg PO TID #20 tabs 06/11/24 Allergies Allergy/AdvReac Type Severity Reaction Status Date / Time acetaminophen [From Percocet] Allergy Unknown RASH Verified 06/11/24 14:44 latex [Latex] Allergy Unknown ITCHY, Verified 06/11/24 14:44 RASH , AND FUNGUS Opioids - Morphine Analogues AdvReac Severe Shortness Verified 06/11/24 14:44 of Breath From Percocet Allergy Unknown RASH Uncoded 06/05/24 14:49 Review of Systems Review of Systems Yes all other systems are reviewed and are negative [facility] Past Medical History Medical History Anal fistula Sinus complaint Sterilization Kidney stone Acute appendicitis Vesicular dermatitis Enlarged lymph node Acute bacterial tonsillitis History of claustrophobia History of anxiety Hx of tendinitis Hx of bursitis History of knee problem Hx of chronic arthritis Family history of heart murmur History of asthma Surgical History History of kidney surgery Hx of tubal ligation Hx of tonsillectomy Hx of breast surgery Hx of appendectomy Hx of cholecystectomy Hx of knee surgery History of Achilles tendon repair Family History Family History Mother Accelerated hypertension Arthritis Cancer of stomach Father Arthritis Sister No problems noted. Sister Arthritis Accelerated hypertension Sister No problems noted. Sister No problems noted. Brother Overdose Brother HIV disease Son Asthma Son No problems noted. Son No problems noted. Son No problems noted. Daughter No problems noted. Social History Social History Alcohol intake: former Patient Tobacco Use Status: Never used Tobacco Advance Directives: No Advance Directives Information Provided: No Physical Exam ED Vital Signs: Vital Signs - 24 hr 06/11/24 14:39 06/11/24 16:00 06/11/24 18:00 Temperature 97.2 F 97.7 F 97.6 F Pulse Rate 62 70 63 Respiratory Rate 18 18 19 Blood Pressure 178/96 H 171/74 H 153/75 H Pulse Oximetry 97 94 96 Oxygen Delivery Method Room Air Room Air Room Air 06/11/24 21:16 06/11/24 21:20 Temperature 97.6 F 97.6 F Pulse Rate 57 57 Respiratory Rate 18 18 Blood Pressure 151/79 H 151/79 H Pulse Oximetry 98 98 Oxygen Delivery Method Room Air Room Air BMI result Body Mass Index 55.2 Appearance: Alert. Oriented X3. No acute distress. Obese patient Eyes: No pallor or icterus ENT: Pharynx normal. Oral Mucosa moist Neck: Normal inspection. Neck supple. CVS: Normal heart rate and rhythm. Pulses normal. Respiratory: No respiratory distress. Equal air entry bilateral, no wheezing/rales/rhonchi Abdomen: Soft and tenderness in epigastric and right upper abdomen Bowel sounds are present, no mass palpable, no CVA tenderness Skin: Skin warm and dry. Normal skin color. Normal skin turgor. Extremities: No lower extremity edema. No calf tenderness Neuro: Oriented X 3. No motor deficit. No sensory deficit.No cerebellar signs , cranial nerves II-XII intact Course Course Course Narrative: This is a Rapid Medical Examination (RME) performed by Jo Everett PA-C in triage. Full HPI, ROS, assessment and treatment plan per primary provider in the Main ED. 54 yo Beninese speaking female with history of of morbid obesity, MANJINDER, H. pylori, anxiety, kidney stones, asthma, hx appendectomy, hx cholecystectomy who presents to the ER for evaluation of right flank pain that radiates around to her epigastic area that woke her up from sleep at 5am. She reports nausea and dizziness. Hx kidney stones and this feels similar. +frequency and urgency. on her menstrual cycle so unable to tell if there is blood in her urine. Appears uncomfortable in triage. +CVA tenderness, no RUQ tenderness on exam. 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 06/11/24 15:32 06/11/24 15:32 Labs: Lab Results 06/11/24 08 Range/Units 15:32 15:33 WBC 7.4 (4.8-10.8) X10*3/uL RBC 4.40 (4.20-5.50) X10*6/uL Hgb 12.7 (12.0-16.0) g/dl Hct 39.0 (37.0-47.0) % MCV 88.6 (80.0-98.0) fL MCH 28.9 (27.0-33.0) pg MCHC 32.6 (31.0-35.0) g/dl RDW 13.9 (11.0-16.0) % Plt Count 231 (160-400) X10*3/uL MPV 9.7 (9.4-12.3) fL Immature Gran % (Auto) 0.4 (0.0-0.4) % Neut % (Auto) 64.3 (45-73) % Lymph % (Auto) 25.8 (20-40) % [place] % (Auto) 7.4 (2-11) % Eos % (Auto) 1.4 (0-4) % Baso % (Auto) 0.7 (0-2) % Lymph # (Auto) 1.9 (1.2-4.9) X10*3/uL [place] # (Auto) 0.6 (0.1-1.2) X10*3/uL Eos # (Auto) 0.1 (0.0-0.4) X10*3/uL Baso # (Auto) 0.1 (0.0-0.2) X10*3/uL Abs Immat Gran (auto) 0.03 (0.00-0.03) X10*3/uL Absolute Neuts (auto) 4.8 (2.0-8.3) x10*3/uL Absolute Nucleated RBC 0.000 (0.0-0.012) X10*3/uL Nucleated RBC % (auto) 0.0 (0.0-0.2) /100WBC Sodium 139 (135-145) mmol/L Potassium 4.0 (3.3-5.1) mmol/L Chloride 103 (96-108) mmol/L Carbon Dioxide 27 (22-29) mmol/L Anion Gap 13 (12-20) BUN 12 (9-16) mg/dL Creatinine 0.68 (0.5-1.4) mg/dL Estim Creat Clear Calc 164.3 Estimated GFR > 60 Random Glucose 96 (60-115) mg/dL Calcium 9.6 (8.4-10.2) mg/dL Magnesium 2.0 (1.6-2.6) mg/dL Total Bilirubin 0.3 (0.0-1.0) mg/dL Direct Bilirubin 0.1 (0.0-0.5) mg/dL AST 12 (5-31) U/L ALT 13 (0-31) U/L Alkaline Phosphatase 106 (39-117) U/L Total Protein 7.6 (6.5-8.0) g/dL Albumin 4.3 (3.5-5.0) g/dL Lipase 12 (8-78) U/L Urine Color Yellow Urine Appearance Clear Urine pH 7.5 (5.0-9.0) Ur Specific Ada 1.010 (1.005-1.025) Urine Protein Negative (Neg-Trace) mg/dL Urine Glucose (UA) Negative (Negative) mg/dL Urine Ketones Negative (Negative) mg/dL Urine Blood Large (3+) H (Negative) Urine Nitrite Negative (Negative) Ur Leukocyte Esterase Negative (Negative) Urine RBC >20 H (0-2) /HPF Urine WBC 0-5 (0-5) /HPF Ur Squamous Epith Cells 0-2 (0-2) /HPF Urine Bacteria None Seen (None Seen) Hyaline Casts 0-2 (0-2) /LPF Radiology Impression Discussion of test interpretation with radiology: I have reviewed the radiologist's reading. Medications Administered Discontinued Medications Generic Name Dose Route Start Last Admin Trade Name Freq PRN Reason Stop Dose Admin Al Hydroxide/Mg Hydroxide 30 ml 06/11/24 18:57 06/11/24 19:21 Magnesium Hydrox/Alum Hydrox 30 Ml Oral.Susp PO 06/11/24 18:58 Not Given ONCE ONE Famotidine 20 mg 06/11/24 18:57 06/11/24 19:38 Famotidine/Pf 20 Mg/2 Ml Vial IVPUSH 06/11/24 18:58 Not Given ONCE ONE Iohexol 85 ml 06/11/24 19:21 06/11/24 19:22 Iohexol 350 Mg/Ml 100 Ml Infus..Btl IV 06/11/24 19:22 85 ml ONCE ONE Administration Ketorolac Tromethamine 30 mg 06/11/24 18:50 06/11/24 19:20 Ketorolac Tromethamine 30 Mg/Ml Vial IVPUSH 06/11/24 18:51 30 mg ONCE ONE Administration Discharge Plan Discharge Clinical Impression: Abdominal pain Patient Disposition: Home, Self-Care Instructions: Abdominal Pain (ED) Additional Instructions: Cause of abdominal pain is not clear but could not find any kidney stone on the right side Take dicyclomine 1 tablet every 8 hours as needed for pain Prescriptions: New dicyclomine 20 mg tablet 20 mg PO TID Qty: 20 0RF No Action cholecalciferol (vitamin D3) 1,250 mcg (50,000 unit) capsule 1,250 mcg PO QWEEK Qty: 4 1RF vitamin A palmitate 10,000 unit tablet 20,000 unit PO DAILY 30 Days Qty: 60 0RF nitrofurantoin monohyd/m-cryst [Macrobid] 100 mg capsule 100 mg PO Q12H 5 Days Qty: 10 0RF Rx Instructions: must administer with a meal/food ibuprofen 800 mg tablet 800 mg PO TID albuterol sulfate [Proventil HFA] 90 mcg/actuation HFA aerosol inhaler 2 puff inhalation Q6H PRN benzonatate 100 mg capsule 100 mg PO TID fexofenadine 180 mg tablet 180 mg PO DAILY furosemide 40 mg tablet 40 mg PO DAILY Interventions: ED Discharge Assessment Last Done: 06/11/24 21:20 Discharge Date/Time: 06/11/24 21:20 Print Language: Beninese
[2024-06-11 14:39] VITALS: BP 178/96; PULSE 62; RESP 18; TEMP 36.2; O2SAT 97; BMI 55.2
[2024-06-11 15:50] LABS: MANUAL DIFF FLAG NO
[2024-06-11 15:54] LABS: Basophils Absolute Auto 0.1 X10*3/uL (0.0-0.2); Basophils Percent Auto 0.7 % (0-2); Eosinophils Absolute Auto 0.1 X10*3/uL (0.0-0.4); Eosinophils Percent Auto 1.4 % (0-4); Hemoglobin 12.7 g/dl (12.0-16.0); Imm Gran Abs Auto 0.03 X10*3/uL (0.00-0.03); Imm Gran Pct Auto 0.4 % (0.0-0.4); Lymphocytes Absolute Auto 1.9 X10*3/uL (1.2-4.9); Lymphocytes Percent Auto 25.8 % (20-40); Mean Corpuscular HGB Conc 32.6 g/dl (31.0-35.0); Mean Corpuscular Hemoglobin 28.9 pg (27.0-33.0); Mean Corpuscular Volume 88.6 fL (80.0-98.0); Mean Platelet Volume 9.7 fL (9.4-12.3); Monocytes Absolute Auto 0.6 X10*3/uL (0.1-1.2); Monocytes Percent Auto 7.4 % (2-11); Neutrophils Absolute Auto 4.8 x10*3/uL (2.0-8.3); Neutrophils Percent Auto 64.3 % (45-73); Platelet Count 231 X10*3/uL (160-400); Red Cell Distribution Width 13.9 % (11.0-16.0); White Blood Count 7.4 X10*3/uL (4.8-10.8)
[2024-06-11 15:54] LABS: Appearance Urine Clear; Color Urine Yellow; Glucose Urine UA Negative (Negative); Leukocyte Esterase Urine Negative (Negative); Nitrite Urine Negative (Negative); PH 7.5 (5.0-9.0); UMIC TRIGGER UACC YES; Urine Blood Large (3+) (Negative); Urine Ketones Negative (Negative); Urine Protein Negative (Neg-Trace)
[2024-06-11 15:57] LABS: Bacteria Urine None Seen (None Seen); Hyaline Casts Urine 0-2 /LPF (0-2); RBC Urine >20 /HPF (0-2); Squamous Epithelial Cell Urine 0-2 /HPF (0-2); WBC Urine 0-5 /HPF (0-5)
[2024-06-11 16:00] VITALS: BP 171/74; PULSE 70; RESP 18; TEMP 36.5; O2SAT 94
[2024-06-11 16:06] LABS: Alanine Aminotransferase 13 U/L (0-31); Albumin Level 4.3 g/dL (3.5-5.0); Alkaline Phosphatase 106 U/L (39-117); Anion Gap 13 (12-20); Aspartate Amino Transferase 12 U/L (5-31); Bilirubin Direct 0.1 mg/dL (0.0-0.5); Bilirubin Total 0.3 mg/dL (0.0-1.0); Blood Urea Nitrogen 12 mg/dL (9-16); Calcium 9.6 mg/dL (8.4-10.2); Carbon Dioxide 27 mmol/L (22-29); Chloride 103 mmol/L (96-108); Creatinine Clr Calc Pharmacy 164.3; Estimated Glomerular Filt Rate > 60; Glucose Random 96 mg/dL (60-115); Lipase 12 U/L (8-78); Sodium 139 mmol/L (135-145); Total Protein 7.6 g/dL (6.5-8.0)
[2024-06-11 18:00] VITALS: BP 153/75; PULSE 63; RESP 19; TEMP 36.4; O2SAT 96
--- NOTE | 2024-06-11 19:08 | PC.NURSE ---
assumed care of pt at this time. IV established to R. AC. pt to ct scan at this time.
[2024-06-11] MEDS: Ketorolac Tromethamine 30 MG/ML VIAL IVPUSH (19:20)
[2024-06-11] MEDS: iohexoL 350 MG/ML 100 ML INFUS..BTL 85 ML IV (19:22)
--- NOTE | 2024-06-11 19:38 | PC.NURSE ---
spanish medical interpreter at bedside. pt medicated per mar for pain. pt refused pepcid/maalox as states she does not have heartburn and feels she doesnt need these meds. aware and okay with plan. pt resting comfortably at this time, awaiting ct scan results.
[2024-06-11 21:16] VITALS: BP 151/79; PULSE 57; RESP 18; TEMP 36.4; O2SAT 98
[2024-06-11 21:20] VITALS: BP 151/79; PULSE 57; RESP 18; TEMP 36.4; O2SAT 98
== END 2024-06-11 21:20 | disposition home or self-care (01) ==
PROVIDERS: Physician Assistant; Emergency Provider Internal Medicine
DX: R10.11 Right upper quadrant pain (principal); R30.0 Dysuria; R11.2 Nausea with vomiting, unspecified; R42 Dizziness and giddiness; R31.9 Hematuria, unspecified; R10.13 Epigastric pain; Z79.899 Other long term (current) drug therapy
CPT/HCPCS: 36415; 71260; 74176; 80048; 80076; 81001; 83690; 83735; 85025; 96374; 99284; J1885; Q9967

== ENCOUNTER 2024-06-17 15:12 | Outpatient (AMB) | payer OTHER, SELFPAY ==
--- NOTE | 2024-06-17 15:16 | A.OFFPC_ITS ---
Vital Signs 06/17/24 15:17 Height 5 ft 9 in Weight 384 lb BMI 56.7 BP 148/72 H Blood Pressure Location Lt brachial Position Sitting Pulse 87 Pulse Source Pulse Oximeter Pulse Oximetry (%) 94 Oxygen Delivery Method Room Air Intake Visit Reasons: [facility] 06/11 RT side pain(passed a kidney stone) Retail Visual Merchandiser Required: Yes Retail Visual Merchandiser Language: Kosovan Allergies acetaminophen [From Percocet] Allergy (Unknown, Verified 06/17/24 15:32) RASH latex [Latex] Allergy (Unknown, Verified 06/17/24 15:32) ITCHY, RASH , AND FUNGUS Opioids - Morphine Analogues Adverse Reaction (Severe, Verified 06/17/24 15:32) Shortness of Breath From Percocet Allergy (Unknown, Uncoded 06/17/24 15:32) RASH Medication List - Last Reconciled 06/17/24 by Kirstin Reyes PA-C albuterol sulfate 90 mcg/actuation (Proventil HFA) 2 puffs inhalation Q6H PRN cholecalciferol (vitamin D3) 1,250 mcg PO QWEEK dicyclomine 20 mg PO TID fexofenadine 180 mg PO DAILY furosemide 40 mg PO DAILY ibuprofen 800 mg PO TID omeprazole 20 mg PO DAILY vitamin A palmitate 20,000 units PO DAILY 30 days Tobacco use date assessed: 06/17/24 Dental Screening Dental Screen Date: 06/17/24 Did you have a dental visit in the last 12 months?: Yes Did you have a dental problem in the last 6 months where you did not have access to dental care?: No Was dental information given to patient?: Patient has dentist HPI [facility] 06/11 RT side pain(passed a kidney stone) HPI Details 54-year-old female with past medical his tory of obstructive sleep apnea coming in for hospital discharge follow up. Review of the notes, patient was seen at [facility] ED 06/12/2024 for right upper quadrant pain. Patient has history of kidney stones status post cholecystectomy. Etiology of abdominal pain was unclear however no evidence of kidney stone patient was discharged home with dicyclomine. Retail Visual Merchandiser was used for the duration of this visit. She mentions the pain that brought her initially to the ED has resolved and she has not had to use the dicyclomine. Patient mentioned she had an accident in 12/17/2022 and is experiencing hip pain which has been evaluated in the past. She was also seeing a green pipefitter in [place] for a murmur and mentioned she had a echo as well as a nuclear stress echo however she does not have these documents. She also mentioned she follows with a manager of medical but does not remember which one. Previously seen by a primary care in [place]. [facility] Medical History Anal fistula Sinus complaint Sterilization Kidney stone Acute appendicitis Vesicular dermatitis Enlarged lymph node Acute bacterial tonsillitis History of claustrophobia History of anxiety Hx of tendinitis Hx of bursitis History of knee problem Hx of chronic arthritis Family history of heart murmur History of asthma Surgical History History of kidney surgery Hx of tubal ligation Hx of tonsillectomy Hx of breast surgery Hx of appendectomy Hx of cholecystectomy Hx of knee surgery History of Achilles tendon repair Family History Mother Accelerated hypertension Arthritis Cancer of stomach Father Arthritis Sister No problems noted. Sister Arthritis Accelerated hypertension Sister No problems noted. Sister No problems noted. Brother Overdose Brother HIV disease Son Asthma Son No problems noted. Son No problems noted. Son No problems noted. Daughter No problems noted. Social History Housing: Apartment Alcohol intake: former Patient Tobacco Use Status: Former Tobacco user (quit in 2019) Tobacco use type: Cigarette Cigarettes Per Day: 1 Years Smoked: 30 service: No Current occupational status: unemployed Cognitive needs: Yes Hearing needs: No Vision needs: Yes Female Reproductive History Menstrual Age of Menarche: 14 Questionnaire PHQ-9 Over the last 2 weeks, how often have you been bothered by any of the following problems? 1. Little interest or pleasure in doing things: not at all 2. Feeling down, depressed, or hopeless: not at all 3. Trouble falling or staying asleep, or sleeping too much: not at all 4. Feeling tired or having little energy: not at all 5. Poor appetite or overeating: not at all 6. Feeling bad about yourself - or that you are a failure or have let yourself or your family down: not at all 7. Trouble concentrating on things, such as reading the newspaper or watching television: not at all 8. Moving or speaking so slowly that other people could have noticed. Or the opposite - being so fidgety or restless that you have been moving around a lot more than usual: not at all 9. Thoughts that you would be better off or of hurting yourself in some way: not at all Total score: 0 61228 - PHQ-9 Billing: Yes Source: Developed by Drs. Gonzalez Merida, Jenn Kramer, Matthew Jimenez and colleagues, with an educational honorio from [employer]. AUDIT C Alcohol Use Questionnaire (AUDIT-C) 1. How often do you have a drink containing alcohol?: Never 2. How many drinks containing alcohol do you have on a typical day when you are drinking?: 1 or 2 (0) 3. How often do you have six or more drinks on one occasion?: Never Total Score: 0 DANDY-7 AMB Questionnaire DANDY-7 Date DANDY - 7 assessed: 06/17/24 Feeling nervous, anxious, or on edge: 0 = Not at all Not being able to stop or control worryin = Not at all Worrying too much about different things: 0 = Not at all Trouble relaxin = Not at all Being so restless that it is hard to sit still: 0 = Not at all Becoming easily annoyed or irritable: 0 = Not at all Feeling afraid as if something awful might happen: 0 = Not at all Total DANDY-7 score (0-4 normal; 5-9 mild; 10-14 moderate; 15-21 severe): 0 Source: Developed by Drs. Gonzalez Merida, Jenn Kramer, Matthew Jimenez and colleagues, with an educational honorio from [employer]. DANDY-7 Assessment Billing DANDY-7 Assessment Tool: DANDY-7 Assessment 54936 Review of Systems Const Denies body aches, Denies fatigue, Denies fever(s), Denies frequent falls, Denies headache(s) and Denies weakness Eyes Reports no additional complaints and Denies change in vision ENT Denies dysphagia, Denies dizziness, Denies facial pain, Denies headache(s), Denies nasal congestion and Denies odynophagia Card Details: Previously followed by cardiology Denies chest pain, Reports chest pain with activity, Denies syncope, Denies irregular heart rhythm, Denies leg edema, Denies lightheadedness and Denies dyspnea Resp Denies cough and Denies dyspnea GI Denies abdominal pain, Denies constipation, Denies dysphagia, Denies dyspepsia, Denies diarrhea, Denies nausea, Denies odynophagia and Denies vomiting Denies urinary frequency, Denies dysuria, Denies urinary hesitancy and Denies urinary urgency Musc Details: hip and knee pain Reports abnormal gait, Denies back pain and Denies myalgias Skin/Breast Reports system reviewed and no additional complaints, except as documented Neuro Reports abnormal gait, Denies dizziness, Denies syncope, Denies frequent falls, Denies headache(s) and Denies weakness Psych Reports no additional complaints Endo Denies fatigue Physical exam (Primary Care) Vital Signs: Last Vital Signs Pulse 87 06/17/24 15:17 BP 148/72 H 06/17/24 15:17 Pulse Ox 94 06/17/24 15:17 Oxygen Delivery Method Room Air 06/17/24 15:17 BMI result Body Mass Index 56.7 BMI Assessment/Plan discussion: High BMI High, discussed plan: lifestyle, weight reduction and physical activity Tobacco/Smoking Status: Tobacco use Status Tobacco use date assessed 06/17/24 06/17/24 15:23 Patient Tobacco Use Status Former Tobacco user (quit in 06/17/24 15:36 2019) Tobacco use type Cigarette 06/17/24 15:23 PHQ-9: PHQ-9 Score PHQ-9: Total score 0 06/17/24 15:59 Const General: cooperative, healthy appearing, comfortable and no acute distress Orientation/consciousness: patient oriented x3 HENMT Head: Yes normocephalic Ears: hearing grossly normal bilaterally General nose exam: Normal external nose present Eyes General: appearance normal, both eyes and all related structures Conjunctivae: conjunctivae normal Neck Neck: Yes full ROM and Yes no lymphadenopathy Resp Effort & Inspection: normal respiratory effort Auscultation: clear to auscultation bilaterally, no crackles, no rales, no rhonchi and no wheezes Cardio Rate: regular rate Rhythm: regular rhythm GI Inspection: Yes normal to inspection Palpation (GI): Soft to palpation, not firm, nontender, no guarding and not rigid Back/Spine/Pelvis Other: No pain to palpation of bilateral hips. Skin General skin exam: no rashes or lesions noted Neuro General: patient oriented x3 Gait exam (Neuro): Normal gait present Extrem General: Yes normal to inspection, Yes full ROM and No edema Psych Affect: normal affect Attitude: cooperative Insight: Good insight present (Psych) Judgement: Good judgement present (Psych) Assessment and Plan Assessment & Plan (1) Chest pain on exertion: Code(s): R07.9 - Chest pain, unspecified Plan: Patient states she does have mild chest discomfort with exertion and has been evaluated for this in the past and has been seeing a green pipefitter. Requesting notes from cardiology office to determine what tests will be needed. (2) Lower extremity weakness: Code(s): R29.898 - Other symptoms and signs involving the musculoskeletal system Plan: Patient states she has difficulty with activities of daily living as well as mobility issues. At this time I do think she would benefit from a CHIEF COUNSEL and referral was placed for visiting nurse. (3) Morbid obesity with BMI of 50.0-59.9, adult: Code(s): E66.01 - Morbid (severe) obesity due to excess calories; Z68.43 - Body mass index [BMI] 50.0-59.9, adult Plan: Discussed with patient the importance of healthy diet and regular exercise. Patient states she does have difficulty with exercise due to lower extremity weakness and her weight. She would like to try Wegovy for weight loss which was prescribed today. Did advise patient that if she is unable to get this medication to follow up. (4) Hip pain: Code(s): M25.559 - Pain in unspecified hip Plan: Patient mentioned she was having hip pain which she said may be related to her weight and lower extremity weakness. Declines x-ray at this time and we will monitor for symptoms. If pain worsens to follow up prior to her next appointment. Plan Discussed with patient the importance of routine screenings and vaccinations. We will follow up in 1 month for yearly physical and follow up on concerns about up at this appointment. This note was constructed using voice recognition software. While every effort has been made to ensure accuracy and grievance manager, still areas may have been included sometimes these areas may affect the content or meeting of the given symptoms. Total time spent caring for the patient today was 30 minutes. This includes time spent before the visit reviewing the chart, time spent during the visit, and time spent after the visit and documentation. Orders: Referrals Visiting Nurse Association/Hospice Referral E66.01 - Morbid (severe) obesity due to excess calories, R29.898 - Other symptoms and signs involving the musculoskeletal system, Z68.43 - Body mass index [BMI] 50.0-59.9, adult Optometry Referral Z00.00 - Encounter for general adult medical examination without abnormal findings Medications: New semaglutide (weight loss) (Mady) administer weeks 1 through 4 of therapy 0.25 mg (0.5 mL) subcut QWEEK 2 mL 0R F Coding Level of Care Code New Pt Level 4 (69841) Diagnoses Chest pain on exertion R07.9 Lower extremity weakness R29.898 Morbid obesity with BMI of 50.0-59.9, adult E66.01; Z68.43 Hip pain M25.559 Additional Codes DANDY-7 Assessment Billing - DANDY-7 Assessment Tool: DANDY-7 Assessment 75426 ([id number])
[2024-06-17 15:17] VITALS: BP 148/72; PULSE 87; O2SAT 94; BMI 56.7
== END 2024-06-17 16:24 | disposition home or self-care (01) ==
DX: R07.9 Chest pain, unspecified (principal); R29.898 Other symptoms and signs involving the musculoskeletal system; E66.01 Morbid (severe) obesity due to excess calories; Z68.43 Body mass index [BMI] 50.0-59.9, adult; M25.559 Pain in unspecified hip
CPT/HCPCS: 99204

== ENCOUNTER 2024-06-23 13:35 | Outpatient (AMB) | payer OTHER, SELFPAY ==
[2024-06-23 13:45] VITALS: BP 136/72; BMI 56.7
--- NOTE | 2024-06-23 13:45 | MHC.OFFVIS ---
Vital Signs 06/23/24 13:45 Height 5 ft 9 in Weight 384 lb BMI 56.7 BP 136/72 Intake Visit Reasons: US follow up Information Interpreted: clinical only Certified Medical Coder: Certified Medical Coder Present Allergies acetaminophen [From Percocet] Allergy (Unknown, Verified 06/23/24 13:46) RASH latex [Latex] Allergy (Unknown, Verified 06/23/24 13:46) ITCHY, RASH , AND FUNGUS Opioids - Morphine Analogues Adverse Reaction (Severe, Verified 06/23/24 13:46) Shortness of Breath From Percocet Allergy (Unknown, Uncoded 06/23/24 13:46) RASH Medication List - Last Reconciled 06/23/24 by Anais Clark CNM albuterol sulfate 90 mcg/actuation (Proventil HFA) 2 puffs inhalation Q6H PRN cholecalciferol (vitamin D3) 1,250 mcg PO QWEEK dicyclomine 20 mg PO TID fexofenadine 180 mg PO DAILY furosemide 40 mg PO DAILY ibuprofen 800 mg PO TID omeprazole 20 mg PO DAILY semaglutide (weight loss) (Wegovy) 0.25 mg (0.5 mL) subcut QWEEK vitamin A palmitate 20,000 units PO DAILY 30 days Is last menstrual period known: Yes Last menstrual period: 06/09/24 HPI HPI US follow up: Details: Patient is here to review her pelvic ultrasound which she had done because of her heavy periods she has had no sign of menopause yet she is 54 years old. She says her mother had a baby when she was 47. She wonders if because she breastfed all her children that that is why she is still menstruating. She was seen and evaluated for pain and ended up having a chest PT in an abdominal PT she said they found a small kidney stone but it was not obstructing anything I reviewed the abd CT scans with her as well. Her ultrasound is completely within normal limits with no abnormal findings 1 ovary slightly larger than another 1 follicles seen in 1 of the ovaries no cysts or fibroids. Patient tells me she is going to be working on the weight loss with the medication she still needs to start it. She also be seeing pack worker supervisor tomorrow. [facility] Medical History Anal fistula Sinus complaint Sterilization Kidney stone Acute appendicitis Vesicular dermatitis Enlarged lymph node Acute bacterial tonsillitis History of claustrophobia History of anxiety Hx of tendinitis Hx of bursitis History of knee problem Hx of chronic arthritis Family history of heart murmur History of asthma Surgical History History of kidney surgery Hx of tubal ligation Hx of tonsillectomy Hx of breast surgery Hx of appendectomy Hx of cholecystectomy Hx of knee surgery History of Achilles tendon repair Family History Mother Accelerated hypertension Arthritis Cancer of stomach Father Arthritis Sister No problems noted. Sister Arthritis Accelerated hypertension Sister No problems noted. Sister No problems noted. Brother Overdose Brother HIV disease Son Asthma Son No problems noted. Son No problems noted. Son No problems noted. Daughter No problems noted. Social History Housing: Apartment Alcohol intake: former Patient Tobacco Use Status: Former Tobacco user (quit in 2019) Tobacco use type: Cigarette Cigarettes Per Day: 1 Years Smoked: 30 service: No Current occupational status: unemployed Cognitive needs: Yes Hearing needs: No Vision needs: Yes Female Reproductive History Menstrual Age of Menarche: 14 Duration of menses: 8-10 days Date of last menstrual period: 06/09/24 control method: permanent sterilization Total pregnancies: 5 History of abnormal pap smear: No (unknown) Physical Exam Vital Signs: Last Vital Signs BP 136/72 06/23/24 13:45 BMI result Body Mass Index 56.7 Results Reviewed Results Reviewed: atient: Ladonna Zavala MR#: [id number] : 1970 Acct:[id number] Age/Sex: 54 / F ADM Date: 05/20/24 Loc: HO.US Attending Dr: Anais Clark CNM Ordering Physician: Anais Clark CNM Date of Service: 05/20/24 Procedure(s): US pelvic and transvaginal Accession Number(s): [id number] cc: Anais Clark CNM; VIKRAM RAJPUT MD~ EXAMINATION: US PELVIS CLINICAL INFORMATION: Menorrhagia COMPARISON: None available. TECHNIQUE: Ultrasound of the pelvis is performed using both transabdominal and transvaginal transducers along with Doppler. Transvaginal imaging is performed due to inadequate visualization transabdominally. FINDINGS: Uterus: The anteverted uterus is normal in size and echotexture measuring 8.3 x 3.6 x 4.6 cm with a normal endometrial thickness of 6 mm. Small endocervical nabothian cysts are noted. Adnexa: The right ovary measures 3.3 x 2 0.0, 0.1 0.8 cm. The left ovary measures 1.6 x 1.6 x 1.2 cm and contains an 18 mm follicle. (No specific imaging follow-up is needed). No free fluid is detected in the cul-de-sac. US/US pelvic and transvaginal IMPRESSION: Unremarkable pelvic ultrasound Dictated By: Jacques Earl MD Signed By: <Electronically signed by Jacques Earl MD in OV> 06/04/242057 DD/ 1056 TD/TT: Frog Catcher: Of note her Pap done 05/04/2024 is negative however the HPV results are not included in the results lab had been contacted afterwards but no results have arrived to her chart since call placed to lab today to look for these Assessment & Plan Assessment & Plan (1) History of menorrhagia: Comment: Worse the last 2 yrs Code(s): Z87.42 - Personal history of other diseases of the female genital tract Category: Medical (2) Left leg swelling: Code(s): M79.89 - Other specified soft tissue disorders Category: Medical (3) Morbid obesity with BMI of 50.0-59.9, adult: Code(s): E66.01 - Morbid (severe) obesity due to excess calories; Z68.43 - Body mass index [BMI] 50.0-59.9, adult Category: Medical (4) Cervical cancer screening: Comment: 05/04/2024 Pap is negative the HPV testing is pending( as of 06/23/2024 still no HPV results lab again contacted to search for HPV results.) Code(s): Z12.4 - Encounter for screening for malignant neoplasm of cervix Category: Medical Plan Patient is here to review her pelvic ultrasound which she had done because of her heavy periods she has had no sign of menopause yet she is 54 years old. She says her mother had a baby when she was 47. She wonders if because she breastfed all her children that that is why she is still menstruating. She was seen and evaluated for pain and ended up having a chest PT in an abdominal PT she said they found a small kidney stone but it was not obstructing anything I reviewed the abd CT scans with her as well. Her ultrasound is completely within normal limits with no abnormal findings 1 ovary slightly larger than another 1 follicles seen in 1 of the ovaries no cysts or fibroids. Patient tells me she is going to be working on the weight loss with the medication she still needs to start it. She also be seeing pack worker supervisor tomorrow. I also reviewed with her the results of her Pap smear which were done on 05/04/2024 the lab was in the interim switching to the [facility] and at the time the HPV result had not arrived it still has not arrived I placed another called to the lab to search for it. If there was a lab omission it is possible she might need to have it repeated Coding Level of Care Code Est Pt Level 3 (42784) Diagnoses History of menorrhagia Z87.42 Left leg swelling M79.89 Morbid obesity with BMI of 50.0-59.9, adult E66.01; Z68.43 Cervical cancer screening Z12.4
== END 2024-06-23 16:25 ==
LOC: HO.HWSM 13:36
PROVIDERS: Visit Provider Advanced Practice Midwife
DX: Z87.42 Personal history of other diseases of the female genital tract (principal); M79.89 Other specified soft tissue disorders; E66.01 Morbid (severe) obesity due to excess calories; Z68.43 Body mass index [BMI] 50.0-59.9, adult; Z12.4 Encounter for screening for malignant neoplasm of cervix
CPT/HCPCS: 99213

== ENCOUNTER → 2024-06-23 13:35 | Outpatient (BNVA) | payer OTHER, SELFPAY | PROVIDERS: Visit Provider Advanced Practice Midwife | DX: Z12.4 Encounter for screening for malignant neoplasm of cervix (principal); M79.89 Other specified soft tissue disorders; E66.01 Morbid (severe) obesity due to excess calories; Z87.42 Personal history of other diseases of the female genital tract; Z68.43 Body mass index [BMI] 50.0-59.9, adult | CPT/HCPCS: 99212 ==

== ENCOUNTER 2024-06-24 13:47 | Outpatient (AMB) | payer OTHER, SELFPAY ==
--- NOTE | 2024-06-24 13:48 | MHC.OFFVIS ---
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 Manager Of Operations Required: Yes Manager Of Operations Services: Manager Of Operations Present Manager Of Operations Name: Leonard [id number]/bronwyn Accompanied by: Self / Same As Patient Allergies acetaminophen [From Percocet] Allergy (Unknown, Verified 06/23/24 13:46) RASH latex [Latex] Allergy (Unknown, Verified 06/23/24 13:46) ITCHY, RASH , AND FUNGUS Opioids - Morphine Analogues Adverse Reaction (Severe, Verified 06/23/24 13:46) Shortness of Breath From Percocet Allergy (Unknown, Uncoded 06/23/24 13:46) RASH Medication List - Last Reconciled 06/24/24 by Patrice Horner MD albuterol sulfate 90 mcg/actuation (Proventil HFA) 2 puffs inhalation Q6H PRN cholecalciferol (vitamin D3) 1,250 mcg PO QWEEK dicyclomine 20 mg PO TID fexofenadine 180 mg PO DAILY furosemide 60 mg PO DAILY ibuprofen 800 mg PO TID lidocaine 5% 1 patch topical DAILY mecobalamin (vitamin B12) 1,000 mcg subcut .once a week omeprazole 20 mg PO DAILY semaglutide (weight loss) (Wegovy) 0.25 mg (0.5 mL) subcut QWEEK vitamin A palmitate 20,000 units PO DAILY 30 days HPI Comments Details: Ladonna is here for consultation regarding congestive heart failure. She is morbidly obese. It seems that she was seen by last year at [facility]. At that time, according to his notes, she had chronic diastolic heart failure and obesity/obstructive sleep apnea. Apparently, she was admitted for heart failure and diuresed at [facility]. During follow-up, it seems there was plan to do left and right heart catheterization as well as CardioMEMS but it does not appear that that actually happened. We need to get more records. Patient states insurance did not approve CardioMEMS. Any case, she still morbidly obese. It seems she is not using any CPAP. Shortness of breath is still present. Also having leg swelling. Nonspecific chest pains but not clearly exertional. [facility]LY [facility] Medical History (Updated 06/24/24 @ 14:06 by Patrice Horner MD) Chronic diastolic (congestive) heart failure Anal fistula Sinus complaint Sterilization Kidney stone Acute appendicitis Vesicular dermatitis Enlarged lymph node Acute bacterial tonsillitis History of claustrophobia History of anxiety Hx of tendinitis Hx of bursitis History of knee problem Hx of chronic arthritis Family history of heart murmur History of asthma Surgical History History of kidney surgery Hx of tubal ligation Hx of tonsillectomy Hx of breast surgery Hx of appendectomy Hx of cholecystectomy Hx of knee surgery History of Achilles tendon repair Family History Mother Accelerated hypertension Arthritis Cancer of stomach Father Arthritis Sister No problems noted. Sister Arthritis Accelerated hypertension Sister No problems noted. Sister No problems noted. Brother Overdose Brother HIV disease Son Asthma Son No problems noted. Son No problems noted. Son No problems noted. Daughter No problems noted. Social History Housing: Apartment Alcohol intake: former Patient Tobacco Use Status: Former Tobacco user (quit in 2019) Tobacco use type: Cigarette Cigarettes Per Day: 1 Years Smoked: 30 service: No Current occupational status: unemployed Cognitive needs: Yes Hearing needs: No Vision needs: Yes Female Reproductive History Menstrual Age of Menarche: 14 Review of Systems Const Denies chills, Denies daytime sleepiness, Denies fatigue, Denies fever(s), Denies poor appetite, Denies snoring, Denies stops breathing during sleep, Denies weakness, Denies weight gain and Denies weight loss Eyes Denies loss of vision ENT Denies dizziness and Denies hearing loss Card Denies chest pain, Denies irregular heart rhythm, Denies claudication, Reports leg edema, Denies lightheadedness, Denies palpitations, Denies dyspnea on exertion and Denies orthopnea Resp Denies cough, Denies excessive phlegm production, Denies dyspnea on exertion, Denies snoring and Denies wheezing GI Denies abdominal pain, Denies hematochezia, Denies change in bowel habits, Denies nausea and Denies vomiting Denies urinary frequency and Denies dysuria Musc Denies arthralgias, Denies muscle weakness, Denies numbness and Denies other Skin/Breast Denies nail changes and Denies rash Neuro Denies Abnormal speech present, Denies dizziness, Denies loss of vision, Denies memory loss, Denies numbness and Denies weakness Psych Denies depression and Denies memory loss Endo Denies fatigue and Denies palpitations Delonte/Lymph Denies easy bruising Aller/Immun Denies wheezing Physical Exam Vital Signs: Last Vital Signs Pulse 80 06/24/24 13:51 BP 136/72 06/24/24 13:51 BMI result Body Mass Index 57.2 Const General: comfortable and no acute distress Orientation/consciousness: patient oriented x3 HEENT Other: Unremarkable Head: Yes normal to inspection Neck Neck: Yes normal visual inspection Chest Chest palpation & inspection: normal inspection of the chest Resp Auscultation: clear to auscultation bilaterally Cardio Palpation: normal PMI Heart sounds: S1 normal heart sound present, S2 normal heart sound present, no gallops, Murmur heart sound present systolic II/ and at the right sternal border and no rubs GI Palpation (GI): Soft to palpation Back/Spine/Pelvis Other: unremarkable Skin General skin exam: no rashes or lesions noted Neuro General: patient oriented x3 Speech: No Abnormal speech present Extrem Other: 1-2+ swelling General: Yes normal to inspection Psych Mental Status: mental status grossly normal Assessment & Plan Assessment & Plan (1) Chronic diastolic (congestive) heart failure: Code(s): I50.32 - Chronic diastolic (congestive) heart failure Category: Medical (2) Morbid obesity due to excess calories: Code(s): E66.01 - Morbid (severe) obesity due to excess calories Category: Medical Plan Recent EKG with underlying sinus rhythm at 62/Min; no significant ST-T changes and otherwise unremarkable. Normal PA and corrected QT. Labs showed normal cardiac BNP of 15. High sensitivity troponin normal. In a chest CT scan, cardiac findings or-normal heart size and no pericardial effusion. Normal caliber pulmonary arteries which suggest against pulmonary hypertension. Mild aortic arch calcification. No coronary artery calcifications. Overall, suspected diastolic heart failure and she may have some component of right heart failure as well related to obesity and untreated sleep apnea. She remains on diuretics. Will need to get more records from [facility] including echo/stress test/if any cardiac catheterization done. Will get an echocardiogram here anyway. Already on diuretics and that can be continued. 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 Orders: Orders CA echo transthorac w con Today I50.32 - Chronic diastolic (congestive) heart failure Coding Level of Care Code New Pt Level 4 (20181) Diagnoses Chronic diastolic (congestive) heart failure I50.32 Morbid obesity due to excess calories E66.01
[2024-06-24 13:51] VITALS: BP 136/72; PULSE 80; BMI 57.2
== END 2024-06-24 14:17 | disposition home or self-care (01) ==
PROVIDERS: Visit Provider Internal Medicine
DX: I50.32 Chronic diastolic (congestive) heart failure (principal); E66.01 Morbid (severe) obesity due to excess calories
CPT/HCPCS: 99204

== ENCOUNTER → 2024-06-24 13:47 | Outpatient (BNVA) | payer OTHER, SELFPAY | PROVIDERS: Visit Provider Internal Medicine | DX: I50.32 Chronic diastolic (congestive) heart failure (principal); E66.01 Morbid (severe) obesity due to excess calories; G47.33 Obstructive sleep apnea (adult) (pediatric); Z68.43 Body mass index [BMI] 50.0-59.9, adult | CPT/HCPCS: 99202 ==

== ENCOUNTER 2024-07-06 08:00 | Outpatient (RCR) | payer OTHER, SELFPAY ==
--- NOTE | 2024-06-19 12:29 | MHC.OT.EP ---
[address] [phone] Occupational Therapy Plan of Care Patient Name: Ladonna Zavala Date of Evaluation: 06/19/24 Diagnosis: B hand pain/ numbness tingling / decreased ROM Pain Location: volar side of B wrists L: 8/10 - radiates to shouldr R: 9/10 Pain Score: 9 Pain Scale Used: Numeric (0 - 10) Aggravating Factors: Cannot quantify; pt reports its constant Alleviating Factors: sometimes heat Assessment: Pt is a 54 yr. old R hand dominant female who has been experiencing pain, numbness, and tingling in B hands and wrists for years. She reports having an EMG at [facility] years ago and being diagnosed w/ carpal tunnel. She was given splints to wear at night which she reports using but not consistently. She saw the PA here at [facility] recently to discuss these sx's, and the decreasing ability to functionally use her hands. He referred her to skilled OT therapy for sx. management, increased strength, and pain free use of her B hands. 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 Thank you once again for your referral.
--- NOTE | 2024-06-19 12:30 | MHC.OT.EP ---
[address] [phone] Occupational Therapy Plan of Care Patient Name: Ladonna Zavala Date of Evaluation: 06/19/24 Diagnosis: B hand pain/ numbness tingling / decreased ROM Pain Location: volar side of B wrists L: 8/10 - radiates to shouldr R: 9/10 Pain Score: 9 Pain Scale Used: Numeric (0 - 10) Aggravating Factors: Cannot quantify; pt reports its constant Alleviating Factors: sometimes heat Assessment: Pt is a 54 yr. old R hand dominant female who has been experiencing pain, numbness, and tingling in B hands and wrists for years. She reports having an EMG at [facility] years ago and being diagnosed w/ carpal tunnel. She was given splints to wear at night which she reports using but not consistently. She saw the PA here at [facility] recently to discuss these sx's, and the decreasing ability to functionally use her hands. She is concerned He referred her to skilled OT therapy for sx. management, increased strength, and pain free use of her B hands. 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 Thank you once again for your referral.
== END 2024-07-06 12:44 | disposition home or self-care (01) ==
LOC: HO.OT 08:00
DX: M77.8 Other enthesopathies, not elsewhere classified (principal)
CPT/HCPCS: 29125; 97035; 97110; 97140; 97166; 97535

== ENCOUNTER 2024-07-10 08:39 | Outpatient (AMB) | payer OTHER, SELFPAY ==
--- NOTE | 2024-07-10 08:43 | A.OFFVIS_ITS ---
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* Account Development Associate Required: Yes Account Development Associate Name: office cmi Allergies acetaminophen [From Percocet] Allergy (Unknown, Verified 07/10/24 08:50) RASH latex [Latex] Allergy (Unknown, Verified 07/10/24 08:50) ITCHY, RASH , AND FUNGUS Opioids - Morphine Analogues Adverse Reaction (Severe, Verified 07/10/24 08:50) Shortness of Breath From Percocet Allergy (Unknown, Uncoded 06/23/24 13:46) RASH Medication List - Last Reconciled 07/10/24 by NICCI Hannah albuterol sulfate 90 mcg/actuation (Proventil HFA) 2 puffs inhalation Q6H PRN cholecalciferol (vitamin D3) 1,250 mcg PO QWEEK dicyclomine 20 mg PO TID fexofenadine 180 mg PO DAILY furosemide 60 mg PO DAILY ibuprofen 800 mg PO TID lidocaine 5% 1 patch topical DAILY mecobalamin (vitamin B12) 1,000 mcg subcut .once a week omeprazole 20 mg PO DAILY semaglutide (weight loss) (Wegovy) 0.25 mg (0.5 mL) subcut QWEEK vitamin A palmitate 20,000 units PO DAILY 30 days HPI Comments Details: Pt is here to re-start the [facility] surgical weight loss program. She heard about our program from her pcp. Her goal is to lose weight and achieve a healthy lifestyle as well as to improve, if not resolve, obesity related medical conditions, including kulwant. She reports first being concerned about her weight 2-3 years ago, highest weight to date was 381. Current weight is 381 pounds with a BMI of 56.3. She has tried multiple methods of weight loss including injections, fad diets without permanent results. She lives with her family. She does not work. She states that she was told by her auto transmission technician not to use her CPAP machine when she had fluid on her lungs, this has resolved but she has not resumed the CPAP and in fact it was taken from her, she follows with pulmonology at [facility]. She states that she will call them today to arrange a follow-up appointment. She started following with cardiology here from [facility]. She wakes at:?6 am, and goes to bed at?10 pm. Dinner is at 3 pm. Breakfast: HB egg or hot dogs AM snack: skip Lunch: salad or soup PM snack: skip Dinner: rice beans and salad After dinner: cereal, potato chips Other snacks: rice Liquids: 32 oz water, no soda, 8 oz cran juice daily, 16 oz iced tea Alcohol/marijuana/tobacco intake: none Exercise: none, GERD score: 11 ORLIN score: 2 ESS score: 19 QOL score: 102 FOR[facility]LY [facility] Medical History Chronic diastolic (congestive) heart failure Anal fistula Sinus complaint Sterilization Kidney stone Acute appendicitis Vesicular dermatitis Enlarged lymph node Acute bacterial tonsillitis History of claustrophobia History of anxiety Hx of tendinitis Hx of bursitis History of knee problem Hx of chronic arthritis Family history of heart murmur History of asthma Surgical History History of kidney surgery Hx of tubal ligation Hx of tonsillectomy Hx of breast surgery Hx of appendectomy Hx of cholecystectomy Hx of knee surgery History of Achilles tendon repair Family History Mother Accelerated hypertension Arthritis Cancer of stomach Father Arthritis Sister No problems noted. Sister Arthritis Accelerated hypertension Sister No problems noted. Sister No problems noted. Brother Overdose Brother HIV disease Son Asthma Son No problems noted. Son No problems noted. Son No problems noted. Daughter No problems noted. Social History Housing: Apartment Alcohol intake: former Patient Tobacco Use Status: Former Tobacco user (quit in 2019) Tobacco use type: Cigarette Cigarettes Per Day: 1 Years Smoked: 30 service: No Current occupational status: unemployed Cognitive needs: Yes Hearing needs: No Vision needs: Yes Female Reproductive History Menstrual Age of Menarche: 14 Physical Exam Const General: cooperative, healthy appearing and no acute distress Orientation/consciousness: patient oriented x3 HEENT Head: Yes normal to inspection Ears: hearing grossly normal bilaterally General nose exam: Normal external nose present Face and sinus: Yes normal facial exam Eyes General: appearance normal, both eyes and all related structures Resp Effort & Inspection: normal respiratory effort Auscultation: clear to auscultation bilaterally Cardio Rate: regular rate Rhythm: regular rhythm Heart sounds: S1 normal heart sound present and S2 normal heart sound present GI Inspection: Yes normal to inspection, No distended and Yes obesity Palpation (GI): Soft to palpation, nontender and no guarding Auscultation: normal bowel sounds Skin General skin exam: no rashes or lesions noted Neuro General: patient oriented x3 Extrem General: No edema Psych Appearance: grossly normal Mental Status: mental status grossly normal Speech and movement: Normal speech and movement present Affect: normal affect Attitude: cooperative Assessment & Plan Assessment & Plan (1) Morbid obesity with BMI of 50.0-59.9, adult: Code(s): E66.01 - Morbid (severe) obesity due to excess calories; Z68.43 - Body mass index [BMI] 50.0-59.9, adult Category: Medical Plan: This is a?54 yo female who will start our SWL program to prepare for bariatric surgery.? Blood work, CXR, ECG, Abd US and UGI have been ordered. She is being s cheduled for initial consultations. She will start SWL classes and watch the first three videos before her next appointment. 1. You have been given a paper with a link to our software lucila ([email or web address]) to generate an individualized nutritional and exercise plan specific for you. Please send me a screenshot of the plans you will generate Meal to include lean meat (beef, fish, pork, turkey, chicken), or occitan yogurt, or egg whites, or beans with a salad with olive oil and fruits (berries, pears, apples, kiwi). Avoid salt, breads, potatoes, rice, pasta, desserts. 2. If you choose shakes, each shake would be drunk slowly, like coffee over a period of 2 hours. 3. If you choose bars, cut each bar in 4 pieces and eat each piece in 30 min to make each bar last 2 hours. 4. I emphasized the importance of measuring accurately the food portion and measure it when serving the food on a plate 5. The meal portions include a specific number of forks of meat (protein) and salad. You always eat the meat portion but you can replace up to half of salad/vegetables portion with rice, potatoes or pasta, or a fruit ?if you like. The less you do it the better weight loss will be. 6. One full-size fork is what can be scooped on the fork without falling aside and not what can be bit with the fork. Use regular forks like those you find in a typical restaurant. 7.? Please send me weight measurements from your body composition scale as soon as possible and then once a week. Always include your diet and exercise plan. The best time to weigh yourself is first thing in the morning after going to the bathroom. 8. The best choice for exercise would be to join the [email or web address] and start walking in the pool and start stationary bike. Alternatively start walking outside daily, tracking calories with a goal of 300 calories per day, daily. You can download the lucila [employer] which can track your time, distance and calories while walking outside. You press start in the lucila when you start and then stop when you are finished. 9.?Goal is to lose at least 1.5-2 lbs per week, and about 10% before surgery, which is about 38 pounds 10. Please follow the diet plan exactly without any change. If you don't like something about the plan or you feel hungry you need to communicate with me so I can help you revise the plan. My cell phone number to communicate with me by text is [phone] Patient is morbidly obese and is not considered stable at this time.?I spent a total of 70 minutes reviewing/updating records, examining the patient and counseling the patient on weight management as detailed above. Orders: Orders IRON PROFILE Today E50.9 - Vitamin A deficiency, unspecified, E53.8 - Deficiency of other specified B group vitamins, E55.9 - Vitamin D deficiency, unspecified, E66.01 - Morbid (severe) obesity due to excess calories, Z68.43 - Body mass index [BMI] 50.0-59.9, adult Comprehensive Met. Panel Today E50.9 - Vitamin A deficiency, unspecified, E53.8 - Deficiency of other specified B group vitamins, E55.9 - Vitamin D deficiency, unspecified, E66.01 - Morbid (severe) obesity due to excess calories, Z68.43 - Body mass index [BMI] 50.0-59.9, adult C Reactive Protein Today E50.9 - Vitamin A deficiency, unspecified, E53.8 - Deficiency of other specified B group vitamins, E55.9 - Vitamin D deficiency, unspecified, E66.01 - Morbid (severe) obesity due to excess calories, Z68.43 - Body mass index [BMI] 50.0-59.9, adult Vitamin A Today E50.9 - Vitamin A deficiency, unspecified, E53.8 - Deficiency of other specified B group vitamins, E55.9 - Vitamin D deficiency, unspecified, E66.01 - Morbid (severe) obesity due to excess calories, Z68.43 - Body mass index [BMI] 50.0-59.9, adult TSH reflex Free T4 Today E50.9 - Vitamin A deficiency, unspecified, E53.8 - Deficiency of other specified B group vitamins, E55.9 - Vitamin D deficiency, unspecified, E66.01 - Morbid (severe) obesity due to excess calories, Z68.43 - Body mass index [BMI] 50.0-59.9, adult Ferritin Today E50.9 - Vitamin A deficiency, unspecified, E53.8 - Deficiency of other specified B group vitamins, E55.9 - Vitamin D deficiency, unspecified, E66.01 - Morbid (severe) obesity due to excess calories, Z68.43 - Body mass index [BMI] 50.0-59.9, adult Vitamin D 25-OH Total Today E50.9 - Vitamin A deficiency, unspecified, E53.8 - Deficiency of other specified B group vitamins, E55.9 - Vitamin D deficiency, unspecified, E66.01 - Morbid (severe) obesity due to excess calories, Z68.43 - Body mass index [BMI] 50.0-59.9, adult ECG 12 lead EKG Today E50.9 - Vitamin A deficiency, unspecified, E53.8 - Deficiency of other specified B group vitamins, E55.9 - Vitamin D deficiency, unspecified, E66.01 - Morbid (severe) obesity due to excess calories, Z68.43 - Body mass index [BMI] 50.0-59.9, adult Insulin Today E50.9 - Vitamin A deficiency, unspecified, E53.8 - Deficiency of other specified B group vitamins, E55.9 - Vitamin D deficiency, unspecified, E66.01 - Morbid (severe) obesity due to excess calories, Z68.43 - Body mass index [BMI] 50.0-59.9, adult Hemoglobin A1c Today E50.9 - Vitamin A deficiency, unspecified, E53.8 - Deficiency of other specified B group vitamins, E55.9 - Vitamin D deficiency, unspecified, E66.01 - Morbid (severe) obesity due to excess calories, Z68.43 - Body mass index [BMI] 50.0-59.9, adult H Pylori Breath Test Today E50.9 - Vitamin A deficiency, unspecified, E53.8 - Deficiency of other specified B group vitamins, E55.9 - Vitamin D deficiency, unspecified, E66.01 - Morbid (severe) obesity due to excess calories, Z68.43 - Body mass index [BMI] 50.0-59.9, adult Complete Blood Count Auto Diff Today E50.9 - Vitamin A deficiency, unspecified, E53.8 - Deficiency of other specified B group vitamins, E55.9 - Vitamin D deficiency, unspecified, E66.01 - Morbid (severe) obesity due to excess calories, Z68.43 - Body mass index [BMI] 50.0-59.9, adult Lipid Panel Today E50.9 - Vitamin A deficiency, unspecified, E53.8 - Deficiency of other specified B group vitamins, E55.9 - Vitamin D deficiency, unspecified, E66.01 - Morbid (severe) obesity due to excess calories, Z68.43 - Body mass index [BMI] 50.0-59.9, adult Vitamin B12 and Folate Today E50.9 - Vitamin A deficiency, unspecified, E53.8 - Deficiency of other specified B group vitamins, E55.9 - Vitamin D deficiency, unspecified, E66.01 - Morbid (severe) obesity due to excess calories, Z68.43 - Body mass index [BMI] 50.0-59.9, adult Zinc Today E50.9 - Vitamin A deficiency, unspecified, E53.8 - Deficiency of other specified B group vitamins, E55.9 - Vitamin D deficiency, unspecified, E66.01 - Morbid (severe) obesity due to excess calories, Z68.43 - Body mass index [BMI] 50.0-59.9, adult Vitamin B1 Today E50.9 - Vitamin A deficiency, unspecified, E53.8 - Deficiency of other specified B group vitamins, E55.9 - Vitamin D deficiency, unspecified, E66.01 - Morbid (severe) obesity due to excess calories, Z68.43 - Body mass index [BMI] 50.0-59.9, adult US abdomen comp w elastography Today E50.9 - Vitamin A deficiency, unspecified, E53.8 - Deficiency of other specified B group vitamins, E55.9 - Vitamin D deficiency, unspecified, E66.01 - Morbid (severe) obesity due to excess calories, Z68.43 - Body mass index [BMI] 50.0-59.9, adult XR chest 2V Today E50.9 - Vitamin A deficiency, unspecified, E53.8 - Deficiency of other specified B group vitamins, E55.9 - Vitamin D deficiency, unspecified, E66.01 - Morbid (severe) obesity due to excess calories, Z68.43 - Body mass index [BMI] 50.0-59.9, adult FL upper GI w air Today E50.9 - Vitamin A deficiency, unspecified, E53.8 - Deficiency of other specified B group vitamins, E55.9 - Vitamin D deficiency, unspecified, E66.01 - Morbid (severe) obesity due to excess calories, Z68.43 - Body mass index [BMI] 50.0-59.9, adult Referrals Behavioral Health Referral E50.9 - Vitamin A deficiency, unspecified, E53.8 - Deficiency of other specified B group vitamins, E55.9 - Vitamin D deficiency, unspecified, E66.01 - Morbid (severe) obesity due to excess calories, Z68.43 - Body mass index [BMI] 50.0-59.9, adult
[2024-07-10 08:54] VITALS: BP 171/85; PULSE 67; TEMP 36.4; O2SAT 96; BMI 57.9
== END 2024-07-10 09:36 | disposition home or self-care (01) ==
PROVIDERS: Visit Provider Physician Assistant Surgical
DX: E66.01 Morbid (severe) obesity due to excess calories (principal); Z68.43 Body mass index [BMI] 50.0-59.9, adult
CPT/HCPCS: 99214

== ENCOUNTER → 2024-07-10 08:39 | Outpatient (BNVA) | payer OTHER, SELFPAY | PROVIDERS: Visit Provider Physician Assistant Surgical | DX: E66.01 Morbid (severe) obesity due to excess calories (principal); E50.9 Vitamin A deficiency, unspecified; E53.8 Deficiency of other specified B group vitamins; E55.9 Vitamin D deficiency, unspecified; Z71.3 Dietary counseling and surveillance; Z68.43 Body mass index [BMI] 50.0-59.9, adult | CPT/HCPCS: 99212 ==

== ENCOUNTER 2024-07-20 15:02 | Outpatient (AMB) | payer OTHER, SELFPAY ==
[2024-07-20 15:06] VITALS: BP 172/82; PULSE 72; O2SAT 96; BMI 57.9
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
[2024-07-20 15:28] VITALS: BP 136/78
== END 2024-07-20 15:52 | disposition home or self-care (01) ==
DX: Z00.00 Encounter for general adult medical examination without abnormal findings (principal); I50.32 Chronic diastolic (congestive) heart failure; E66.01 Morbid (severe) obesity due to excess calories; Z68.43 Body mass index [BMI] 50.0-59.9, adult; M25.552 Pain in left hip; R29.898 Other symptoms and signs involving the musculoskeletal system; G47.30 Sleep apnea, unspecified

== ENCOUNTER → 2024-07-20 15:02 | Outpatient (BNVA) | payer OTHER, SELFPAY | DX: Z00.01 Encounter for general adult medical examination with abnormal findings (principal); M25.552 Pain in left hip; I50.32 Chronic diastolic (congestive) heart failure; R29.898 Other symptoms and signs involving the musculoskeletal system; E66.01 Morbid (severe) obesity due to excess calories; Z68.43 Body mass index [BMI] 50.0-59.9, adult; G47.30 Sleep apnea, unspecified | CPT/HCPCS: 99212; 99386 ==

== ENCOUNTER 2024-07-21 12:46 | Emergency (ER) | payer OTHER, SELFPAY ==
--- NOTE | ~2024-07-21 | XR_ITS ---
EXAMINATION: XR CHEST, 2 VIEWS CLINICAL INFORMATION: Cough COMPARISON: CT dated 06/11/2024 TECHNIQUE: PA and lateral views of the chest were obtained. FINDINGS: Subtle bronchial wall thickening. No consolidation, pneumothorax, or pleural effusion. Cardiac and mediastinal contours are normal. Pulmonary vasculature is unremarkable. Trachea is midline. Mild degenerative disc disease in the thoracic spine.. XR/XR chest 2V IMPRESSION: Subtle bronchial wall thickening as can be seen with bronchitis or asthma. No consolidation. Electronically signed by: Giovanni Calle MD 07/21/2024 05:32 PM EDT
[2024-07-21 13:22] VITALS: BP 165/72; PULSE 66; RESP 20; TEMP 36.4; O2SAT 98; BMI 56.9
--- NOTE | 2024-07-21 13:52 | ED.GENADULT ---
HPI - General Adult General Chief complaint: Upper Respiratory Symptoms Stated complaint: Sore throat Time Seen by Provider: 07/21/24 15:49 Source: patient, RN notes reviewed and old records reviewed Mode of arrival: ambulatory History of Present Illness ED Provider: Selena Murphy PA-C HPI narrative: 54-year-old female with a past medical history anxiety, asthma, CHF, presenting to the ED complaining of sore throat, dry cough x few days. Also reports chills. + sick contacts. Denies fever, SOB, CP, pedal edema, history of clots, recent travel. Related Data Home Medications ?Medication ?Instructions ?Recorded ?Confirmed ibuprofen 800 mg tablet 800 mg PO TID 03/31/21 07/20/24 omeprazole 20 mg capsule,delayed 20 mg PO DAILY 06/17/24 07/20/24 release lidocaine 5 % topical patch 1 patch topical DAILY 06/24/24 07/20/24 mecobalamin (vitamin B12) 10,000 1,000 mcg subcut .once a week 06/24/24 07/20/24 mcg solution for injection Previous Rx's ?Medication ?Instructions ?Recorded dicyclomine 20 mg tablet 20 mg PO TID #20 tabs 06/11/24 semaglutide (weight loss) 0.25 0.25 mg (0.5 mL) subcut QWEEK #2 mL 06/17/24 mg/0.5 mL subcutaneous pen injector (Radialpointvy) albuterol sulfate 90 mcg/actuation 2 puff inhalation Q6H PRN 07/20/24 aerosol inhaler (Proventil HFA) shortness of breath or wheezing #6.7 grams cholecalciferol (vitamin D3) 25 50 mcg (2 x 25 mcg (1,000 unit)) 07/20/24 mcg (1,000 unit) capsule (Vitamin PO DAILY #30 caps D3) fexofenadine 180 mg tablet 180 mg PO DAILY #30 tabs 07/20/24 furosemide 40 mg tablet 60 mg (1.5 x 40 mg) PO DAILY #30 07/20/24 tabs semaglutide (weight loss) 0.5 0.5 mg (0.5 mL) subcut QWEEK #2 mL 07/20/24 mg/0.5 mL subcutaneous pen injector (Wegovy) sennosides 8.6 mg capsule (senna) 8.6 mg PO BEDTIME PRN constipation 07/20/24 #30 caps vitamin A palmitate 3,000 mcg 20,000 unit PO DAILY 30 days #60 07/20/24 (10,000 unit) tablet tabs benzonatate 100 mg capsule 100 mg PO TID PRN cough #14 caps 07/21/24 Allergies Allergy/AdvReac Type Severity Reaction Status Date / Time acetaminophen [From Percocet] Allergy Unknown RASH Verified 07/21/24 13:26 latex [Latex] Allergy Unknown ITCHY, Verified 07/21/24 13:26 RASH , AND FUNGUS Opioids - Morphine Analogues AdvReac Severe Shortness Verified 07/21/24 13:26 of Breath From Percocet Allergy Unknown RASH Uncoded 07/20/24 15:07 Review of Systems Review of Systems: Yes all other systems are reviewed and are negative Constitutional: Constitutional: Reports as per [facility] Past Medical History Attestation statement: The following information was validated with the patient. Source: old records reviewed Medical History Chronic diastolic (congestive) heart failure Anal fistula Sinus complaint Sterilization Kidney stone Acute appendicitis Vesicular dermatitis Enlarged lymph node Acute bacterial tonsillitis History of claustrophobia History of anxiety Hx of tendinitis Hx of bursitis History of knee problem Hx of chronic arthritis Family history of heart murmur History of asthma Surgical History History of kidney surgery Hx of tubal ligation Hx of tonsillectomy Hx of breast surgery Hx of appendectomy Hx of cholecystectomy Hx of knee surgery History of Achilles tendon repair Family History Family History Mother Accelerated hypertension Arthritis Cancer of stomach Father Arthritis Sister No problems noted. Sister Arthritis Accelerated hypertension Sister No problems noted. Sister No problems noted. Brother Overdose Brother HIV disease Son Asthma Son No problems noted. Son No problems noted. Son No problems noted. Daughter No problems noted. Social History Social History Housing: Apartment Alcohol intake: former Patient Tobacco Use Status: Former Tobacco user (quit in 2019) Tobacco use type: Cigarette Cigarettes Per Day: 1 Years Smoked: 30 e-Cigarette/Vaping Use: Never Used Advance Directives: No Advance Directives Information Provided: No service: No Current occupational status: unemployed Cognitive needs: Yes Hearing needs: No Vision needs: Yes Physical Exam ED Vital Signs: Vital Signs - 24 hr 07/21/24 13:22 07/21/24 18:01 Temperature 97.6 F 97.4 F Pulse Rate 66 71 Respiratory Rate 20 16 Blood Pressure 165/72 H 154/89 H Pulse Oximetry 98 99 Oxygen Delivery Method Room Air Room Air BMI result Body Mass Index 56.9 Const General: cooperative, healthy appearing and no acute distress Orientation/consciousness: patient oriented x3 Limitations: no limitations HENMT Head: Yes normal to inspection and Yes atraumatic Ears: hearing grossly normal bilaterally General nose exam: Normal external nose present Face and sinus: Yes normal facial exam Mouth: no drooling Throat: Yes tonsils normal, Yes uvula midline, No peritonsillar mass, Yes posterior oropharynx abnormal (Mild erythema), No uvula laterally displaced and No uvular edema Eyes General: appearance normal, both eyes and all related structures EOM: EOMs intact bilaterally Neck Neck: Yes normal visual inspection and Yes no meningeal signs Resp Effort & Inspection: normal respiratory effort and no respiratory distress Auscultation: clear to auscultation bilaterally, no crackles, no rhonchi and no wheezes Cardio Rate: regular rate Heart sounds: S1 normal heart sound present and S2 normal heart sound present Skin Rashes: no rashes Wounds: no wounds Neuro General: patient oriented x3, tone normal and no meningeal signs Cranial nerves: Yes CN's II-XII intact bilaterally Gait exam (Neuro): Normal gait present Extrem Other: Chronic LE edema. No calf tenderness General: Yes normal to inspection Course Course Course Narrative: This is a rapid medical exam performed by Cony Hernandes PA-C 54-year-old female presenting with viral symptoms x2 days. Associated sore throat, dry cough. On exam, her lungs are clear to auscultation, her oropharynx is erythematous without exudate, there was no associated swelling. We will be obtaining a viral panel the patient will return to the waiting room pending her full assessment -COVID/flu/RSV and rapid strep negative XR chest 2V IMPRESSION: Subtle bronchial wall thickening as can be seen with bronchitis or asthma. No consolidation. Results discussed with patient including worrisome signs and symptoms and strict return precautions, and when to return to the emergency department. They verbalized understanding and feel safe for discharge at this time. Medical Decision Making Medical Decision Making [facility] Narrative: 54-year-old female with a past medical history anxiety, asthma, CHF, presenting to the ED complaining of sore throat, dry cough x few days. On exam vital signs stable, NAD, nontoxic appearing, lungs CTA. Mild posterior oropharyngeal erythema, uvula midline, no exudates. Concern for viral illness vs strep pharyngitis. Rule out pneumonia. Lower suspicion for ACS/PE, DVT, WATER PUMP OPERATOR or retropharyngeal abscess Plan: Viral testing, rapid strep, CXR Please refer to course for remaining clinical decision making, interpretation of labs/imaging results, and discussions with consultants and/or family members. Differential Diagnosis Differential Diagnoses: The differential diagnosis associated with the presentation includes As above Admission/Observation Consideration of admission/observation: Escalation of care including admission/observation considered Lab Data [facility] Lab Attestation statement: I reviewed the patient's lab results. Labs: Lab Results 07/21/24 07/21/24 Range/Units 13:58 16:52 Influenza Type A (PCR) NEGATIVE (Negative) Influenza Type B (PCR) NEGATIVE (Negative) RSV RNA Qual (PCR) NEGATIVE (Negative) SARS-CoV-2 RNA (RT-PCR) NEGATIVE (Negative) S. pyogenes GrpA LENARD Negative (Negative) Independent Interpretation I performed an independent interpretation of an: Plain X-Ray Radiology Impression Discussion of test interpretation with radiology: I have reviewed the radiologist's reading. External Record Review External record reviewed: Inpatient record, Office record, Outpatient record, Prior outpatient labs, Prior outpatient radiology, Primary care record and Outside ED record Tests considered The following testing was considered but not selected: As above Prescription Management I considered prescription management with: Other Discharge Plan Discharge Clinical Impression: Acute viral syndrome Patient Disposition: Home, Self-Care Instructions: Viral Syndrome (ED) Additional Instructions: You tested negative for COVID, flu, RSV and strep throat Your x-ray shows subtle wall thickening consistent with viral illness/bronchitis Seema Valdovinos for cough, take as needed Gargle with warm saltwater Follow-up with her doctor If symptoms persist or worsen return to the ED Prescriptions: New benzonatate 100 mg capsule 100 mg PO TID PRN (Reason: cough) Qty: 14 0RF No Action dicyclomine 20 mg tablet 20 mg PO TID Qty: 20 0RF omeprazole 20 mg capsule,delayed release(DR/EC) 20 mg PO DAILY Wegovy 0.25 mg/0.5 mL pen injector 0.25 mg subcut QWEEK Qty: 2 0RF Rx Instructions: administer weeks 1 through 4 of therapy ibuprofen 800 mg tablet 800 mg PO TID lidocaine 5 % adhesive patch,medicated 1 patch topical DAILY Rx Instructions: leave on most painful area for up to 12 hrs mecobalamin (vitamin B12) 10,000 mcg recon soln 1,000 mcg subcut .once a week senna 8.6 mg capsule 8.6 mg PO BEDTIME PRN (Reason: constipation) Qty: 30 0RF albuterol sulfate [Proventil HFA] 90 mcg/actuation HFA aerosol inhaler 2 puff inhalation Q6H PRN (Reason: shortness of breath or wheezing) Qty: 6.7 0RF cholecalciferol (vitamin D3) [Vitamin D3] 25 mcg (1,000 unit) capsule 50 mcg PO DAILY Qty: 30 3RF fexofenadine 180 mg tablet 180 mg PO DAILY Qty: 30 3RF furosemide 40 mg tablet 60 mg PO DAILY Qty: 30 3RF vitamin A palmitate 3,000 mcg (10,000 unit) tablet 20,000 unit PO DAILY 30 Days Qty: 60 0RF Wegovy 0.5 mg/0.5 mL pen injector 0.5 mg subcut QWEEK Qty: 2 0RF Rx Instructions: administer weeks 5 through 8 of therapy Referrals: Kirstin Reyes PA-C [Primary Care Provider] - 3 days Interventions: ED Discharge Assessment Last Done: 07/21/24 18:01 Discharge Date/Time: 07/21/24 18:02 Print Language: Somali
[2024-07-21 14:51] LABS: Influenza A PCR NEGATIVE (Negative); Influenza B PCR NEGATIVE (Negative); Resp Syncy Virus RNA Qual PCR NEGATIVE (Negative); SARS COV2 PCR INHOUSE NEGATIVE (Negative)
[2024-07-21 17:40] LABS: IDNOW Serial# 08D9AD1C; Strep A Nucleic Acid Negative (Negative)
[2024-07-21 18:01] VITALS: BP 154/89; PULSE 71; RESP 16; TEMP 36.3; O2SAT 99
== END 2024-07-21 18:02 | disposition home or self-care (01) ==
PROVIDERS: Physician Assistant; Emergency Provider Emergency Medicine Emergency Medical Services
DX: B34.9 Viral infection, unspecified (principal); J02.9 Acute pharyngitis, unspecified; R05.9 Cough, unspecified; Z03.818 Encounter for observation for suspected exposure to other biological agents ruled out; Z79.899 Other long term (current) drug therapy
CPT/HCPCS: 0241U; 71046; 87651; 99282; 99283

== ENCOUNTER → 2024-07-24 07:42 | Outpatient (REF) | payer OTHER, SELFPAY ==
--- NOTE | ~2024-07-24 | XR_ITS ---
EXAMINATION: XR HIP, LEFT CLINICAL INFORMATION: M25.552 - Pain in left hip COMPARISON: None available. TECHNIQUE: Two views of the left hip. FINDINGS: No fracture, dislocation, or focal bony abnormality. Normal alignment. Mild joint space narrowing is noted axially. Moderate marginal osteophytic spurring is present predominantly involving the superior and inferior acetabulum, with tiny subcapital spurs. The femoral head maintains normal contour. No discrete soft tissue abnormality. XR/XR hip LT min 2V IMPRESSION: 1. No acute bony abnormalities. 2. 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 Electronically signed by: Giovanni Awad MD 10/01/2024 03:55 PM ANGEL
--- NOTE | 2024-07-24 07:52 | CA_ITS ---
Transthoracic Echocardiogram Patient (Last, First, Middle): Ladonna Zavala J Gender: Female Date of : 1970 Age: 54 Procedure Date: 07/24/2024 Procedure Type: Transthoracic Echocardiogram Location: OP Height: 175. cm Weight: 168.29 kg BSA: 2.68 m2 Heart Rate: 61 bpm BP: 110 / 75 mmHg Luster Repairer: JOHNATHAN Referring MD: Patrice Horner MD Symptoms: I50.32 - Chronic diastolic (congestive) heart failure Study Quality: Fair ECG Rhythm: Sinus Conclusions: - The left ventricular systolic function is normal. The calculated ejection fraction is 61% by biplane method. - No obvious valvular pathology seen on this study. Findings Left Ventricle Normal left ventricular cavity size. There is mildly increased left ventricular wall thickness. The left ventricular systolic function is normal. The calculated ejection fraction is 61% by biplane method. There is no evidence of regional wall motion abnormalities. Diastolic function is normal for age. Right Ventricle Normal right ventricular cavity size and systolic function. Atria Both atria are normal in size. Aortic Valve There is a normal trileaflet aortic valve. There is no aortic valve stenosis. There is no aortic valve regurgitation. Mitral Valve The mitral valve appears normal. There is trace mitral valve regurgitation. There is no mitral valve stenosis. Pulmonic Valve The pulmonic valve is likely normal. Tricuspid Valve There is mild tricuspid valve regurgitation. There is no evidence of pulmonary hypertension. Great Vessels The aortic annulus, sinuses of valsalva, and asc aorta are normal in size. Venous The inferior vena cava is mildly dilated and collapses greater than 50% with inspiration. Pericardium/Pleural There is no evidence of pericardial effusion. Prior Study Comparison No prior study available for comparison. Recommendations, Care & Conclusions No obvious valvular pathology seen on this study. Measurements 2D Linear Measurements IVSd: 1.07 0.6-0.9/0.6-1.0 cm LVIDd: 5.59 3.9-5.3/4.2-5.9 cm LVIDd Index: 2.09 2.4-3.2/2.2-3.1 cm/m2 LVIDs: 3.43 2.0-3.6 cm LVPWd: 1.05 0.7-1.1 cm LA Diam: 4.60 2.7-3.8/3.0-4.0 cm LAIDs Index: 1.72 1.5-2.3 cm/m2 LV Mass: 294.98 67-162/88-224 g LV Mass Index: 110.07 43-95/49-115 g/m2 LVOT Diam: 2.20 3.0+(-)1.3 cm 2D Systolic Function EF 4C: 55.50 >55% EF 2C: 68.30 >55% EF BiP: 60.90 >55% Mitral Valve MV Pk E: 0.90 MV PK A: 0.88 MV Decel Time: 213.00 E/A: 1.00 E'Lateral: 9.14 E'Medial: 7.83 E/E' Med: 11.40 E/E' Lat: 9.80 PHT: 62.00 MVA PHT: 3.55 Decel [place]: 4.20 Aortic Valve AoV Pk Ubaldo: 1.72 AoV Mn Ubaldo: 1.27 AoV VTI: 0.42 AoV Pk Grad: 12.00 Aov Mn Grad: 7.00 QUENTIN Cont.VTI: 3.04 LVOT LVOT Pk Ubaldo: 1.51 LVOT Mn Ubaldo: 1.07 LVOT VTI: 0.34 LVOT Pk Grad: 9.00 LVOT Mn Grad: 5.00 LVOT Diam: 2.20 LVOT Area: 3.80 Diastolic Function MV Pk E: 0.90 MV Pk A: 0.88 E/A: 1.00 E'Medial: 7.83 E/E' Med: 11.40 E' Laterial: 9.14 E/E' Lat: 9.80 Right Ventricle TAPSE (mm): 33.50 TVS' Ubaldo: 12.30 Tricuspid Valve TR Pk Ubaldo: 2.45 TR Pk Grad: 24.00 RA Press: 8.00 RVSP: 32.00 Great Vessels Aorta Sinus of Valsalva: 3.20 2.0-3.5 cm Ao Asc: 3.20 2.1-3.4 cm Pulmonary Valve PV Pk Ubaldo: 1.15 Peak PV Grad: 5.00 Updated in Other Vendor System with Status of Final Patrice Horner MD electronically signed on 07/25/2024 1:35:07 PM with status of Final
--- NOTE | 2024-07-24 07:52 | ECG_ITS ---
Test Reason : morbid obesity Blood Pressure : / mmHG Vent. Rate : 065 BPM Atrial Rate : 065 BPM P-R Int : 146 ms QRS Dur : 098 ms QT Int : 406 ms P-R-T Axes : 059 060 035 degrees QTc Int : 422 ms Normal sinus rhythm Minimal voltage criteria for LVH, may be normal variant ( Sokolow-Limon ) Borderline ECG When compared with ECG of 14-MAY-2024 12:23, No significant change was found Referred By: Saman Waller Electronically Signed By:ABRAHAM PRADO
[2024-07-24 08:43] LABS: MANUAL DIFF FLAG NO
[2024-07-24 09:03] LABS: Basophils Percent Auto 0.8 % (0-2); Eosinophils Absolute Auto 0.1 X10*3/uL (0.0-0.4); Eosinophils Percent Auto 1.8 % (0-4); Hematocrit 39.8 % (37.0-47.0); Hemoglobin 12.7 g/dl (12.0-16.0); Imm Gran Abs Auto 0.02 X10*3/uL (0.00-0.03); Imm Gran Pct Auto 0.4 % (0.0-0.4); Lymphocytes Absolute Auto 1.6 X10*3/uL (1.2-4.9); Lymphocytes Percent Auto 32.6 % (20-40); Mean Corpuscular HGB Conc 31.9 g/dl (31.0-35.0); Mean Corpuscular Hemoglobin 29.1 pg (27.0-33.0); Mean Corpuscular Volume 91.3 fL (80.0-98.0); Mean Platelet Volume 9.8 fL (9.4-12.3); Monocytes Absolute Auto 0.4 X10*3/uL (0.1-1.2); Monocytes Percent Auto 8.3 % (2-11); Neutrophils Absolute Auto 2.8 x10*3/uL (2.0-8.3); Neutrophils Percent Auto 56.1 % (45-73); Platelet Count 260 X10*3/uL (160-400); Red Blood Count 4.36 X10*6/uL (4.20-5.50); Red Cell Distribution Width 12.9 % (11.0-16.0)
[2024-07-24 09:31] LABS: Estimated Average Glucose 105 mg/dL; Hemoglobin A1C 116.4268 umol/L; Hemoglobin A1c % 5.3 % (<6.0)
[2024-07-24 09:40] LABS: Alanine Aminotransferase 14 U/L (0-31); Albumin Level 4.2 g/dL (3.5-5.0); Alkaline Phosphatase 119 U/L (39-117); Anion Gap 10 (12-20); Aspartate Amino Transferase 12 U/L (5-31); Bilirubin Total 0.3 mg/dL (0.0-1.0); Blood Urea Nitrogen 14 mg/dL (9-16); C Reactive Protein 0.41 mg/dL (< or = 0.50); Carbon Dioxide 31 mmol/L (22-29); Chloride 104 mmol/L (96-108); Cholesterol 175 mg/dL (<200); Estimated Glomerular Filt Rate > 60; Glucose Random 92 mg/dL (60-115); HDL Cholesterol 58 mg/dL (>40); Iron 68 mcg/dL (30-160); LDL Cholesterol Calculated 99 mg/dL (<100); Percent Iron Saturation 19 % (15-50); Potassium 4.1 mmol/L (3.3-5.1); Sodium 141 mmol/L (135-145); Total Iron Binding Capacity 362 mcg/dL (228-428); Total Protein 7.4 g/dL (6.5-8.0); Triglycerides 92 mg/dL (<150); Unsaturated Iron Binding 294 ug/dL
[2024-07-24 10:03] LABS: Folate 7.1 ng/mL (> or = 4.0); Vitamin B12 258 pg/mL (200-900)
[2024-07-24 10:06] LABS: Ferritin 40 ng/mL (10-250); TSH reflex Free T4 7.63 uIU/mL (0.32-4.0); Vitamin D 25-OH Total 21.2 ng/mL (>30)
[2024-07-24 11:00] LABS: Insulin 11 uU/mL (2-29)
[2024-07-28 01:53] LABS: Zinc 75 mcg/dL (60-130)
[2024-07-29 23:23] LABS: Vitamin A 36 mcg/dL (38-98)
[2024-07-31 06:28] LABS: Vitamin B1 6 nmol/L (8-30)
== END ==
LOC: HO.CARD 07:42
PROVIDERS: Absent Provider Physician Assistant Surgical; Visit Provider Internal Medicine
DX: M25.552 Pain in left hip (principal); I50.32 Chronic diastolic (congestive) heart failure; E66.01 Morbid (severe) obesity due to excess calories; Z68.43 Body mass index [BMI] 50.0-59.9, adult; E50.9 Vitamin A deficiency, unspecified; E53.8 Deficiency of other specified B group vitamins; E55.9 Vitamin D deficiency, unspecified
CPT/HCPCS: 36415; 73502; 80053; 80061; 82306; 82607; 82728; 82746; 83036; 83525; 83540; 84425; 84439; 84443; 84590; 84630; 85025; 86140; 93005; 93306

== ENCOUNTER → 2024-07-24 07:52 | Outpatient (BNV) | payer OTHER, SELFPAY | PROVIDERS: Absent Provider Physician Assistant Surgical; Visit Provider Internal Medicine | DX: I36.1 Nonrheumatic tricuspid (valve) insufficiency (principal); I50.32 Chronic diastolic (congestive) heart failure | CPT/HCPCS: 93306 ==

== ENCOUNTER → 2024-07-24 08:42 | Outpatient (BNV) | payer OTHER, SELFPAY | PROVIDERS: Absent Provider Physician Assistant Surgical; Visit Provider Radiology Diagnostic Radiology | DX: M17.12 Unilateral primary osteoarthritis, left knee (principal) | CPT/HCPCS: 73502 ==

== ENCOUNTER 2024-07-31 13:29 | Outpatient (REF) | payer OTHER, SELFPAY ==
--- NOTE | 2024-07-31 13:32 | EMG_ITS ---
Chief complaint: Bilateral hand numbness and pain Reason for referral: Evaluate for Carpal Tunnel Syndrome Referred by: Wiliam GRAJEDA Procedure done: Bilateral upper extremities NCS/EMG Precautions and/or limitations: None Setswana speaking, seen with dental technology advisor. The limb temperature was monitored continuously and remained between 32-36 degrees C during the performance of the NCS. Nerve Conduction Studies Anti Sensory Summary Table ?Stim Site NR Onset (ms) Norm Onset (ms) Peak (ms) Norm Peak (ms) O-P Amp (?V) Norm O-P Amp Site1 Site2 Delta-0 (ms) Dist (cm) Ubaldo (m/s) Norm Ubaldo (m/s) Left Median Anti Sensory (2nd Digit) Wrist ? 4.4 5.8 <3.6 11.1 >10 Wrist 2nd Digit 4.4 14.0 32 Right Median Anti Sensory (2nd Digit) Wrist ? 2.8 4.6 <3.6 9.5 >10 Wrist 2nd Digit 2.8 14.0 50 Left Ulnar Anti Sensory (5th Digit) Wrist ? 0.9 2.8 <3.7 17.2 >15.0 Wrist 5th Digit 0.9 14.0 156 Right Ulnar Anti Sensory (5th Digit) Wrist ? 1.3 2.8 <3.7 16.5 >15.0 Wrist 5th Digit 1.3 14.0 108 Motor Summary Table ?Stim Site NR Onset (ms) Norm Onset (ms) O-P Amp (mV) Norm O-P Amp iAmp (mV) Amp (1st) (%) Site1 Site2 Delta-0 (ms) Dist (cm) Ubaldo (m/s) Norm Ubaldo (m/s) Left Median Motor (Abd Poll Brev) Wrist ? 4.4 <3.9 12.1 >4.5 15.5 100.0 Elbow Wrist 4.2 24.5 58 >45 Elbow ? 8.6 12.3 15.6 101.7 Right Median Motor (Abd Poll Brev) Wrist ? 4.0 <3.9 10.8 >4.5 13.3 100.0 Elbow Wrist 4.4 24.0 55 >45 Elbow ? 8.4 10.8 13.3 100.0 Left Ulnar Motor (Abd Dig Minimi) Wrist ? 2.5 <3.0 7.2 >5 8.4 100.0 B Elbow Wrist 3.7 23.0 62 >45 B Elbow ? 6.2 6.7 8.1 93.1 A Elbow B Elbow 1.4 10.0 71 >45 A Elbow ? 7.6 8.0 9.6 111.1 Right Ulnar Motor (Abd Dig Minimi) Wrist ? 2.6 <3.0 10.4 >5 12.2 100.0 B Elbow Wrist 3.9 23.0 59 >45 B Elbow ? 6.5 11.1 13.0 106.7 A Elbow B Elbow 1.2 10.0 83 >45 A Elbow ? 7.7 9.9 11.7 95.2 Comparison Summary Table ?Stim Site NR Peak (ms) Norm Peak (ms) P-T Amp (?V) Site1 Site2 Delta-P (ms) Norm Delta (ms) Right Median/Radial Dig I Comparison (Digit 1 - 10cm) Median NR <2.9 Median Radial Radial ? 2.5 <2.8 10.5 EMG ?Side Muscle Nerve Root Ins Act Fibs Psw Amp Dur Poly Recrt Int Pat Comment Right 1stDorInt Ulnar C8-T1 Nml Nml Nml Nml Nml 0 Nml Complete Right FlexCarRad Median C6-7 Nml Nml Nml Nml Nml 0 Nml Complete Right Biceps Musculocut C5-6 Nml Nml Nml Nml Nml 0 Nml Complete Right Triceps Radial C6-7-8 Nml Nml Nml Nml Nml 0 Nml Complete Right Deltoid Axillary C5-6 Nml Nml Nml Nml Nml 0 Nml Complete Left 1stDorInt Ulnar C8-T1 Nml Nml Nml Nml Nml 0 Nml Complete Left FlexCarRad Median C6-7 Nml Nml Nml Nml Nml 0 Nml Complete Left Biceps Musculocut C5-6 Nml Nml Nml Nml Nml 0 Nml Complete Left Triceps Radial C6-7-8 Nml Nml Nml Nml Nml 0 Nml Complete Left Deltoid Axillary C5-6 Nml Nml Nml Nml Nml 0 Nml Complete FINDINGS: Bilateral median motor nerves showed prolonged distal latency, normal amplitude and normal conduction velocity. Right median sensory nerve showed prolonged peak latency and small amplitude. Left median sensory nerve showed prolonged peak latency. Comparison study between right median and radial sensory nerves showed an absent median response. All other nerves tested were within normal. Concentric needle EMG was performed in selected muscles of the bilateral upper extremities. Study did not reveal signs of electric abnormalities as shown in the table above. IMPRESSION: 1. This is an abnormal study. 2. 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 3. There is no electrodiagnostic evidence for ulnar neuropathy, brachial plexopathy, or cervical radiculopathy. Thank you for your kind referral. Angelica Jaimes MD, JOSELITO Board Certified, [place] Board [employer] and Rehabilitation (ABPMR) Board Certified, [place] Board of Electrodiagnostic Medicine (ABEM) CODIN [phone] x [phone] MTDD
== END 2024-07-31 13:30 | disposition home or self-care (01) ==
LOC: HO.NEURO 13:29
DX: R20.0 Anesthesia of skin (principal); R20.2 Paresthesia of skin
CPT/HCPCS: 95886; 95911

== ENCOUNTER → 2024-07-31 13:32 | Outpatient (BNV) | payer OTHER, SELFPAY | PROVIDERS: Visit Provider Physical Medicine & Rehabilitation | DX: G56.03 Carpal tunnel syndrome, bilateral upper limbs (principal) | CPT/HCPCS: 95886; 95911 ==

== ENCOUNTER 2024-08-03 07:46 | Outpatient (REF) | payer OTHER, SELFPAY ==
--- NOTE | ~2024-08-03 | US_ITS ---
EXAMINATION: US COMPLETE ABDOMEN WITH LIVER ELASTOGRAPHY CLINICAL INFORMATION: Obesity. COMPARISON: CT abdomen and pelvis 06/11/2024. TECHNIQUE: Real-time imaging of the abdominal viscera. Noninvasive ultrasound liver fibrosis assessment is performed using Gely ElastPQ point quantification shear wave elastography (pSWE) with a C5-2 MHz transducer. Multiple elastography samples are obtained. FINDINGS: PANCREAS: Normal. The visualized pancreatic head and body are normal in appearance. The remainder of the pancreas is obscured from visualization by the overlying bowel gas. ABDOMINAL AORTA: The proximal, middle, and distal aortic segments are normal in caliber. INFERIOR VENA CAVA: Visualized portions are normal. LIVER: The liver demonstrates increased echogenicity and is enlarged at 19.5 cm. No focal lesion or intrahepatic biliary duct dilatation. The right lobe measures 19.5 cm in length. The left lobe measures 13.0 cm in length. Portal flow is towards the liver (hepatopetal). Shear wave liver elastography median stiffness is 1.04 m/s (reference: normal median stiffness is 1.3 m/s or less). IQR/median stiffness to assess sampling precision is 0.12 (reference: good quality data set is IQR/median stiffness of 0.15 or less). GALLBLADDER: Normal. The gallbladder is physiologically distended without evidence of stones, sludge, polyps, wall thickening or pericholecystic fluid. COMMON BILE DUCT: Normal in caliber measuring 0.4 cm in diameter. RIGHT KIDNEY: Normal. No hydronephrosis. No renal calculi or focal parenchymal lesions. The kidney measures 12.1 cm in maximum dimension. LEFT KIDNEY: Normal. No hydronephrosis. No renal calculi or focal parenchymal lesions. The kidney measures 12.9 cm in maximum dimension. SPLEEN: Mildly enlarged measuring 12.5 cm in maximum dimension. FREE FLUID: None. US/US abdomen comp w elastography IMPRESSION: 1. Enlarged fatty liver with mild splenomegaly. 2. Liver Elastography: Measurements are consistent with a high probability of normal liver stiffness. REFERENCE: Society of Radiologists in Ultrasound Liver Stiffness Thresholds (2020): LIVER STIFFNESS THRESHOLDS: *Liver Stiffness equal or less than 1.3 m/s: High probability of being normal. *Liver Stiffness less than 1.7 m/s: In the absence of other known clinical signs, rules out compensated advanced chronic liver disease. *Liver Stiffness 1.7-2.1 m/s: Suggestive of compensated advanced chronic liver disease but need further test for confirmation. *Liver Stiffness over 2.1 m/s: Rules in compensated advanced chronic liver disease. *Liver Stiffness over 2.4 m/s: Suggestive of clinically significant portal hypertension. QUALITY OF DATA SET: *IQR/Median value equal or less than 0.15 implies a quality data set. *IQR/Median value over 0.15 implies a poor quality data set. SIGNIFICANT CHANGE FROM PRIOR EXAM: Significant change if liver stiffness measurement is 10% or greater from prior exam. OTHER CONSIDERATIONS: The stage of liver fibrosis may be overestimated in the setting of acute hepatitis, liver inflammation, elevated liver function tests, hepatic vascular congestion, obstructive cholestasis, non-fasting state, and infiltrative diseases such as amyloidosis and lymphoma. In some patients with NAFLD, the liver stiffness thresholds for compensated advanced chronic liver disease may be lower. In causes other than viral hepatitis and NAFLD, liver stiffness thresholds are not well established. Electronically signed by: Keith Geronimo MD 10/01/2024 11:19 PM ANGEL
== END 2024-08-03 07:47 | disposition home or self-care (01) ==
LOC: HO.US 07:46
PROVIDERS: Visit Provider Physician Assistant Surgical
DX: E66.01 Morbid (severe) obesity due to excess calories (principal); Z68.43 Body mass index [BMI] 50.0-59.9, adult; E50.9 Vitamin A deficiency, unspecified; E53.8 Deficiency of other specified B group vitamins; E55.9 Vitamin D deficiency, unspecified
CPT/HCPCS: 76700; 76981

== ENCOUNTER 2024-08-13 09:48 | Day surgery (SDC) | payer OTHER, SELFPAY ==
--- NOTE | 2024-08-06 14:08 | P.CONAN_ITS ---
Documented by User: Karly Stoll NP 08/06/24 14:12 HPI - Anesthesia Eval Consult details Narrative: 54yo F for Upper Endoscopy Seen by [facility] Cardiology as new patient, hx CHF. Some LE edema. ECHO, BNP, Chest CT WNL. Anesthesia Pre-Procedure Meds Is the patient on any of the following meds?: GLP1/DPP4 PMFSH Active Problems Active Problems: All Active Problems Left hip pain (Acute) Chronic diastolic (congestive) heart failure (Acute) Hip pain (Acute) Lower extremity weakness (Acute) Chest pain on exertion (Acute) Annual physical exam (Acute) Numbness and tingling in both hands (Acute) Flexor carpi radialis tendinitis (Acute) Cervical cancer screening (Acute) History of menorrhagia (Acute) Left leg swelling (Acute) Morbid obesity with BMI of 50.0-59.9, adult (Acute) Morbid obesity due to excess calories (Acute) BMI 50.0-59.9, adult (Acute) H. pylori infection (Acute) Vitamin A deficiency (Acute) Vitamin B 12 deficiency (Acute) Adjustment disorder, unspecified (Acute) Vitamin D deficiency (Acute) Sleep apnea with use of continuous positive airway pressure (CPAP) (Acute) Daytime somnolence (Acute) Shortness of breath (Acute) Preoperative examination (Acute) Past Medical History Medical History Chronic diastolic (congestive) heart failure Anal fistula Sinus complaint Sterilization Kidney stone Acute appendicitis Vesicular dermatitis Enlarged lymph node Acute bacterial tonsillitis History of claustrophobia History of anxiety Hx of tendinitis Hx of bursitis History of knee problem Hx of chronic arthritis Family history of heart murmur History of asthma Family History Family History Mother Accelerated hypertension Arthritis Cancer of stomach Father Arthritis Sister No problems noted. Sister Arthritis Accelerated hypertension Sister No problems noted. Sister No problems noted. Brother Overdose Brother HIV disease Son Asthma Son No problems noted. Son No problems noted. Son No problems noted. Daughter No problems noted. Surgical History Surgical History H/O bilateral mastectomy History of kidney surgery Hx of tubal ligation Hx of tonsillectomy Hx of breast surgery Hx of appendectomy Hx of cholecystectomy Hx of knee surgery History of Achilles tendon repair Social History Social History Housing: Apartment Alcohol intake: former Patient Tobacco Use Status: Former Tobacco user Tobacco use type: Cigarette Cigarettes Per Day: 1 Years Smoked: 30 e-Cigarette/Vaping Use: Never Used Use of substances other than those prescribed or required for medical reasons: No Are you DNR?: No Advance Directives: No Advance Directives Information Provided: Yes Advance Directives on File: No Recently lost weight without trying: No Nutrition Risks: No Nutritional Risk Patient : No service: No Current occupational status: unemployed Cognitive needs: Yes Hearing needs: No Vision needs: Yes Meds Allergies Allergy/AdvReac Type Severity Reaction Status Date / Time latex [Latex] Allergy Unknown ITCHY, Verified 07/21/24 13:26 RASH , AND FUNGUS acetaminophen Allergy Dizziness Verified 08/13/24 10:47 oxycodone Allergy Rash Verified 08/13/24 10:47 Opioids - Morphine Analogues AdvReac Severe Shortness Verified 07/21/24 13:26 of Breath Home Medications ?Medication ?Instructions ?Recorded ?Confirmed ?Last Taken ?Type ibuprofen 800 mg tablet 800 mg PO TID 03/31/21 07/20/24 Unknown History omeprazole 20 mg capsule,delayed 20 mg PO DAILY 06/17/24 07/20/24 Unknown History release lidocaine 5 % topical patch 1 patch topical DAILY 06/24/24 07/20/24 Unknown History mecobalamin (vitamin B12) 10,000 1,000 mcg subcut .once a week 06/24/24 07/20/24 Unknown History mcg solution for injection Exam Pertinent Lab Results Pertinent Lab Results: Laboratory Tests 07/24/24 08:41 WBC 5.0 Hgb 12.7 Hct 39.8 Plt Count 260 Sodium 141 Potassium 4.1 Chloride 104 Carbon Dioxide 31 H BUN 14 Creatinine 0.67 Narrative Narrative: ECHO 06/2024 Conclusions: - The left ventricular systolic function is normal. The calculated ejection fraction is 61% by biplane method. - No obvious valvular pathology seen on this study. EKG 06/2024 Vent. Rate : 065 BPM Atrial Rate : 065 BPM P-R Int : 146 ms QRS Dur : 098 ms QT Int : 406 ms P-R-T Axes : 059 060 035 degrees QTc Int : 422 ms Normal sinus rhythm Minimal voltage criteria for LVH, may be normal variant ( Sokolow-Limon ) Borderline ECG When compared with ECG of 14-MAY-2024 12:23, No significant change was found Chest CT 05/2024 CARDIOVASCULAR: The heart size is normal. No pericardial effusion. Pulmonary arteries and thoracic aorta are normal in caliber. Mild atherosclerotic calcification of the aortic arch. CORONARY ARTERY CALCIFICATION: None detected. Assessment and Plan Assessment Anesthesia Assessment: Chart Reviewed Documented by User: Samaria Dacosta MD 08/13/24 11:09 [facility] Past Medical History Medical History Chronic diastolic (congestive) heart failure Anal fistula Sinus complaint Sterilization Kidney stone Acute appendicitis Vesicular dermatitis Enlarged lymph node Acute bacterial tonsillitis History of claustrophobia History of anxiety Hx of tendinitis Hx of bursitis History of knee problem Hx of chronic arthritis Family history of heart murmur History of asthma Family History Family History Mother Accelerated hypertension Arthritis Cancer of stomach Father Arthritis Sister No problems noted. Sister Arthritis Accelerated hypertension Sister No problems noted. Sister No problems noted. Brother Overdose Brother HIV disease Son Asthma Son No problems noted. Son No problems noted. Son No problems noted. Daughter No problems noted. Surgical History Surgical History H/O bilateral mastectomy History of kidney surgery Hx of tubal ligation Hx of tonsillectomy Hx of breast surgery Hx of appendectomy Hx of cholecystectomy Hx of knee surgery History of Achilles tendon repair History of Problems with Anesthesia: No Social History Social History Housing: Apartment Alcohol intake: former Patient Tobacco Use Status: Former Tobacco user Tobacco use type: Cigarette Cigarettes Per Day: 1 Years Smoked: 30 e-Cigarette/Vaping Use: Never Used Use of substances other than those prescribed or required for medical reasons: No Are you DNR?: No Advance Directives: No Advance Directives Information Provided: Yes Advance Directives on File: No Recently lost weight without trying: No Nutrition Risks: No Nutritional Risk Patient : No service: No Current occupational status: unemployed Cognitive needs: Yes Hearing needs: No Vision needs: Yes Meds Allergies Allergy/AdvReac Type Severity Reaction Status Date / Time latex [Latex] Allergy Unknown ITCHY, Verified 07/21/24 13:26 RASH , AND FUNGUS acetaminophen Allergy Dizziness Verified 08/13/24 10:47 oxycodone Allergy Rash Verified 08/13/24 10:47 Opioids - Morphine Analogues AdvReac Severe Shortness Verified 07/21/24 13:26 of Breath Home Medications ?Medication ?Instructions ?Recorded ?Confirmed ?Last Taken ?Type ibuprofen 800 mg tablet 800 mg PO TID 03/31/21 07/20/24 Unknown History omeprazole 20 mg capsule,delayed 20 mg PO DAILY 06/17/24 07/20/24 Unknown History release lidocaine 5 % topical patch 1 patch topical DAILY 06/24/24 07/20/24 Unknown History mecobalamin (vitamin B12) 10,000 1,000 mcg subcut .once a week 06/24/24 07/20/24 Unknown History mcg solution for injection Exam Airway Mallampati Class: II TM Dist: >3cm Neck ROM: Full Denture: Upper Loose/Missing/Broken Teeth: Yes and Upper Heart: RRR Lungs: CTA Assessment and Plan Assessment Anesthesia Assessment: Anesthesia Plan Discussed Final Anesthetic Review History of Problems with Anesthesia: No NPO: Yes ASA Class: III Final Preanesthetic Review: Meds/Allgs Chart Reviewed, Consent Obtained/Reviewed and Anes Risks/Benef Reviewed Patient Risk: Intermediate Procedure Risk: Intermediate Anesthetic Plan Anesthetic Plan: MAC: Disposition: Standard PACU
[2024-08-13 10:58] VITALS: BMI 55.7
[2024-08-13 11:04] VITALS: BP 153/61; PULSE 61; RESP 18; TEMP 36.5; O2SAT 98
[2024-08-13] MEDS: Lactated Ringers 1,000 ML 100 ML IVCONT (11:13)
--- NOTE | 2024-08-13 11:20 | MHC.SHP ---
Pre-Procedural Eval Section A - 24 Hr Update-Section A only Date of Service: 08/13/24 The patient is an INPATIENT: No The patient has been examined within 24 hours of the surgical procedure. The History & Physical has been completed within 30 days and I have reviewed it.: Yes Section B - Complete if H&P > 30 days Chief Complaint: Morbid (severe) obesity due to excess calories Relevant Family History (Specify if Yes): No Relevant Social History: None Present Medications: None Medical History: No relevant PMH History of Previous Operations: No relevant previous surgery Allergies: Allergies Allergy/AdvReac Type Severity Reaction Status Date / Time latex [Latex] Allergy Unknown ITCHY, Verified 07/21/24 13:26 RASH , AND FUNGUS acetaminophen Allergy Dizziness Verified 08/13/24 10:47 oxycodone Allergy Rash Verified 08/13/24 10:47 Opioids - Morphine Analogues AdvReac Severe Shortness Verified 07/21/24 13:26 of Breath Review of Systems Sugical H&P ROS: Negative: Constitution, Cardiovascular, Respiratory, Neurological, Psychiatric, Hem-Onc, Allergic/Immunologic, Gastrointestinal, Genitourinary, Musculoskeletal, Integumentary, Endocrine and Eyes/Ears/Nose/Throat Exam Surgical H&P Exam: Normal: HEENT, Normal: Heart, Normal: Lungs, Normal: Extremities, Normal: Abdomen, Normal: Skin and Normal: Neurological Plan Diagnosis/Plan: Unchanged (EGD to assess the stomach's anatomy. Risks of bleeding and perforation were discussed with the patient and she is in agreement with the plan.) I have reviewed the history and physical and performed a pertinent physical examination on my patient. No changes have occurred unless specified. Time Spent With Patient Time: Total time managing care of this patient today ____ minutes.
--- NOTE | 2024-08-13 11:22 | PM.OP ---
Brief Operative Note Date of Service: 08/13/24 Pre-op diagnosis: Morbid obesity Post-op diagnosis: same (1) small diaphragmatic hernia, 2) duodenitis) Procedure: PROCEDURE DATE: 08/13/2024 PREOPERATIVE DIAGNOSIS: GERD POSTOPERATIVE DIAGNOSIS: ?Same as above. 1) small hiatal hernia, 2) duodenitis PROCEDURE: [id number] with biopsies Surgeon: ?Joaquim Nayak M.D.. Ph.D. Web Content Writer: None ? Anesthesia: IV sedation Estimated blood loss: ?Minimal FINDINGS AND PROCEDURE: ? OPERATIVE INDICATIONS: ?The patient is a 54 year old female known to me who is interested in bariatric surgery. Based on this information I recommended an upper endoscopy to evaluate the stomach's anatomy. Risks and complications of the surgery were discussed with the patient in advance particularly the possibility of perforation or bleeding that may require surgical intervention. The patient understood the risks and was in agreement with the plan. ? PROCEDURE: After informed consent was obtained by the patient, the patient was ?transferred to the Operating Room and was placed in the supine position.? After successful induction of IV sedation, a mouth block was inserted and the patient was placed in the left lateral decubitus position. An upper endoscopy was performed next, the oropharynx and esophagus appeared within the normal limits. There was a small 3cm hiatal hernia. The z-line was smooth. Two biopsies were obtained from the distal esophagus 2-3 cm proximal to the GE junction and two additional biopsies from the GE junction. The stomach was entered and it appeared to be of normal size. There was no gastritis. There was no stricture or ulcer. A biopsy was obtained from the gastric fundus and the antrum. No significant bleeding was noted from any of the biopsy sites. Retroflexion of the scope confirmed a normal GE junction. The scope was then advanced into the duodenum.There was some erythema and superficial ulcerations. At that point the duodenum ?and the stomach were decompressed and the scope was withdrawn from the patient's mouth. The patient extubated and was transferred in stable condition to the Recovery Room for further care. I was present and performed all steps of the procedure. There were no residents to assist with this case. Joaquim Nayak M.D., Ph.D. Surgeon: Eddie Nayak MD Anesthesia: MAC Was an Web Content Writer used for this Procedure?: No Estimated blood loss (mL): 0 IV fluids (mL): 400 Urine output (mL): 0 (No Solorzano to record output) Pathology: other (1) antrum x1, 2) fundus x1, 3) GE junction x2, 4) distal esophagus x2) Condition: stable Disposition: PACU
[2024-08-13 12:01] VITALS: BP 103/62; PULSE 63; RESP 18; TEMP 36.2; O2SAT 99
[2024-08-13 12:17] VITALS: BP 129/88; PULSE 63; RESP 17; TEMP 36.1; O2SAT 100
== END 2024-08-13 12:35 | disposition home or self-care (01) ==
PROVIDERS: Visit Provider Surgery
PROC: 0DJ08ZZ Inspection of Upper Intestinal Tract, Via Natural or Artificial Opening Endoscopic (ICD-10-PCS; CPT 43235; principal; 2024-08-13 12:20)
DX: E66.01 Morbid (severe) obesity due to excess calories (principal); Z68.43 Body mass index [BMI] 50.0-59.9, adult; K44.9 Diaphragmatic hernia without obstruction or gangrene; K29.80 Duodenitis without bleeding; I50.32 Chronic diastolic (congestive) heart failure; E53.8 Deficiency of other specified B group vitamins; E55.9 Vitamin D deficiency, unspecified; E50.9 Vitamin A deficiency, unspecified; Z79.85 Long-term (current) use of injectable non-insulin antidiabetic drugs; Z79.1 Long term (current) use of non-steroidal anti-inflammatories (NSAID); Z79.899 Other long term (current) drug therapy; Z90.49 Acquired absence of other specified parts of digestive tract; Z98.51 Tubal ligation status; Z91.040 Latex allergy status; Z88.5 Allergy status to narcotic agent; Z98.890 Other specified postprocedural states; Z87.891 Personal history of nicotine dependence; Z56.0 Unemployment, unspecified
CPT/HCPCS: 43239; 88305; 88313; 88342; J2003; J2704

== ENCOUNTER → 2024-08-13 09:48 | Outpatient (BNV) | payer OTHER, SELFPAY | PROVIDERS: Visit Provider Surgery | DX: K44.9 Diaphragmatic hernia without obstruction or gangrene (principal) | CPT/HCPCS: 43239 ==

== ENCOUNTER → 2024-08-18 08:45 | Outpatient (BNVA) | payer OTHER, SELFPAY | PROVIDERS: Visit Provider Physician Assistant Surgical ==

== ENCOUNTER 2024-08-26 08:21 | Outpatient (AMB) | payer OTHER, SELFPAY ==
--- NOTE | 2024-08-26 08:28 | A.OFFVIS_ITS ---
Vital Signs 08/26/24 08:30 Height 5 ft 8 in Weight 380 lb BMI 57.8 Handedness Right Intake Visit Reasons: OV- B/L hand EMG review Intake Note: Ladonna is a 54 year old right hand dominant female who presents today for a review of her EMG done on 07/31/2024 of her bilateral hands. Right worse than left. Reports since her EMG she feels she has so strength in the right hand. She did try OT however this was not helpful. Occupational Therapist'S Assistant Required: Yes Occupational Therapist'S Assistant Language: Administrative Resources Associate Name: [id number] Allergies latex [Latex] Allergy (Unknown, Verified 08/26/24 08:29) ITCHY, RASH , AND FUNGUS acetaminophen Allergy (Verified 08/26/24 08:29) Dizziness oxycodone Allergy (Verified 08/26/24 08:29) Rash Opioids - Morphine Analogues Adverse Reaction (Severe, Verified 08/26/24 08:29) Shortness of Breath HPI HPI OV- B/L hand EMG review: Details: Patient is a 54-year-old female who presents for bilateral hand EMG and nerve conduction study review. The patient states that her symptoms have remained consistent since her last evaluation. The patient states that the pain she experiences is worse in her right hand, but that the numbness and tingling is worse in the left. Patient states she would like to proceed with operative intervention on the right 1st. No other acute complaints or concerns at this time. [facility] Medical History Chronic diastolic (congestive) heart failure Anal fistula Sinus complaint Sterilization Kidney stone Acute appendicitis Vesicular dermatitis Enlarged lymph node Acute bacterial tonsillitis History of claustrophobia History of anxiety Hx of tendinitis Hx of bursitis History of knee problem Hx of chronic arthritis Family history of heart murmur History of asthma Surgical History H/O bilateral mastectomy History of kidney surgery Hx of tubal ligation Hx of tonsillectomy Hx of breast surgery Hx of appendectomy Hx of cholecystectomy Hx of knee surgery History of Achilles tendon repair Family History Mother Accelerated hypertension Arthritis Cancer of stomach Father Arthritis Sister No problems noted. Sister Arthritis Accelerated hypertension Sister No problems noted. Sister No problems noted. Brother Overdose Brother HIV disease Son Asthma Son No problems noted. Son No problems noted. Son No problems noted. Daughter No problems noted. Social History Housing: Apartment Alcohol intake: former Patient Tobacco Use Status: Former Tobacco user Tobacco use type: Cigarette Cigarettes Per Day: 1 Years Smoked: 30 e-Cigarette/Vaping Use: Never Used service: No Current occupational status: unemployed Cognitive needs: Yes Hearing needs: No Vision needs: Yes Female Reproductive History Menstrual Age of Menarche: 14 Physical Exam Vital Signs: BMI result Body Mass Index 57.8 Extrem Other: Patient is alert, oriented, and in no acute distress. Neuro: Patient reports diminished sensation in the median nerve distribution of bilateral hands Normal sensation of the ulnar nerve distribution of bilateral hands Vascular: Cap refill brisk Pain: Patient reports no tenderness to palpation at this time ROM: Patient is able to make a closed fist bilaterally Good finger cross Good APB muscle belly firing bilaterally Skin: No lacerations or abrasions. General: No ecchymosis, erythema, or evidence of infection. Psych: Appears grossly normal Affect normal Attitude cooperative Results Reviewed Results Reviewed: IMPRESSION: 1. This is an abnormal study. 2. 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 3. There is no electrodiagnostic evidence for ulnar neuropathy, brachial plexopathy, or cervical radiculopathy. Thank you for your kind referral. Angelica Jaimes MD, JOSELITO 07/31/24 Assessment & Plan Assessment & Plan (1) Carpal tunnel syndrome, bilateral: Code(s): G56.03 - Carpal tunnel syndrome, bilateral upper limbs Category: Medical Plan 1. Carpal tunnel syndrome, right Symptoms constant, daily, worse at night I educated the patient about the condition. I discussed both operative and nonoperative treatment options. The patient would like to proceed with surgery. Patient is educated that due to having dense numbness, she may not get normal sensation back after surgery, patient understands this. The risks and benefits of operative treatment were discussed with the patient and the patient wishes to proceed with surgery. These risks include, but are not limited to, risk of damage to blood vessels, nerves, tendons, infection, recurrence, incomplete relief of preoperative symptoms, persistent pain, possible need for further surgery, and the risks associated with regional blocks and/or anesthesia. Plan is to take the patient to the operating room at some point in the next few weeks for the following procedures: 1. Right carpal tunnel release under local anesthesia All of the preoperative paperwork including the consent was discussed today. All of the patient's questions were answered in the clinic today. The patient understands that they will be in contact with our surgical technology instructor to discuss scheduling their procedure. Patient denies diabetes, blood thinners, asthma, heart issues, lung issues, kidney issues, or current smoking. 1. Carpal tunnel syndrome, left Symptoms constant, daily, worse at night Patient would like to proceed with operative intervention on the right 1st, as she finds this side more bothersome Patient is educated that after she has begun recovery from her right carpal tunnel release, we can get her signed up for left-sided surgery Patient understands this and is amenable to this plan Patient will follow-up as needed with any acute concerns Coding Level of Care Code Est Pt Level 4 (59705) Diagnoses Carpal tunnel syndrome, bilateral G56.03
[2024-08-26 08:30] VITALS: BMI 57.8
== END 2024-08-26 08:51 | disposition home or self-care (01) ==
LOC: HO.HOS 08:22
DX: G56.03 Carpal tunnel syndrome, bilateral upper limbs (principal)
CPT/HCPCS: 99214

== ENCOUNTER → 2024-08-26 08:21 | Outpatient (BNVA) | payer OTHER, SELFPAY | DX: G56.03 Carpal tunnel syndrome, bilateral upper limbs (principal) | CPT/HCPCS: 99212 ==

== ENCOUNTER 2024-09-01 09:53 | Outpatient (AMB) | payer OTHER, SELFPAY ==
--- NOTE | 2024-09-01 09:54 | MHC.OFFVIS ---
Intake Visit Reasons: F/U US. Allergies latex [Latex] Allergy (Unknown, Verified 09/01/24 09:54) ITCHY, RASH , AND FUNGUS acetaminophen Allergy (Verified 09/01/24 09:54) Dizziness oxycodone Allergy (Verified 09/01/24 09:54) Rash Opioids - Morphine Analogues Adverse Reaction (Severe, Verified 09/01/24 09:54) Shortness of Breath Medication List - Last Reconciled 09/01/24 by Anais Clark CNM albuterol sulfate 90 mcg/actuation (Proventil HFA) 2 puffs inhalation Q6H PRN benzonatate 100 mg PO TID PRN cholecalciferol (vitamin D3) (Vitamin D3) 50 mcg (2 x 25 mcg (1,000 unit)) PO DAILY dicyclomine 20 mg PO TID docusate sodium (Colace) 100 mg PO BID 90 days fexofenadine 180 mg PO DAILY furosemide 60 mg (1.5 x 40 mg) PO DAILY ibuprofen 800 mg PO TID lidocaine 5% 1 patch topical DAILY mecobalamin (vitamin B12) 1,000 mcg subcut .once a week omeprazole 20 mg PO DAILY semaglutide (weight loss) (Wegovy) 0.25 mg (0.5 mL) subcut QWEEK semaglutide (weight loss) (Wegovy) 0.5 mg (0.5 mL) subcut QWEEK sennosides (senna) 8.6 mg PO BEDTIME PRN thiamine HCl (vitamin B1) 100 mg PO DAILY 90 days vitamin A palmitate 20,000 units PO DAILY 30 days Is last menstrual period known: Yes Last menstrual period: 08/15/24 Post menopausal: No HPI HPI F/U US.: Details: This was a very lengthy and challenging historical visit by telephone in [place]. The patient somehow had had an ultrasound done at [facility] that showed a 2 cm complex cyst that was neither in the ovary or the uterus on patient's left side the patient cites burning pain before her period, Usually on the right side and it also extends to the 1st 2 days fof her periods and her periods have gotten heavier and are clottier. With multiple questioning, the patient could not tell me who ordered that ultrasound other than she thought it was being done as part of her extensive evaluation to check out everything before getting her bariatric surgery, she is getting full evaluation she tells me that she is having the bariatric surgery through [facility] but she does not have a date yet. in addition she has carpal tunnel surgery scheduled for October 19 she has upcoming visits with all of her doctors including a visit with her primary care doctor tomorrow, 09/02/24, and she plans to discuss everything with her then. I reviewed the april u/s, normal, and the 08/17/24 cdh ultrasound with her which showed the cyst on the opposite side of her pain, but nonetheless recommendation was made for follow-up in 6-12 weeks from the 08/17 date of that ultrasound. I am going to order a follow-up ultrasound, and because of the dates of her surgery and dates of LMP, of , and regular menses, decision made to request the ultrasound to be done around 8 weeks so it will avoid her surgery. I explained all of this to the patient. When the patient went to her calendar to review the date of her LMP she remembered that she had a continuous towel roller at [address] [place] [address] in [place], and that that was who ordered the original ultrasound that was done 08/17 at [facility]. She had not disclosed this before and she did not remember the name of the person, though i cited the name on the u/s. she tells me she wants to get her care at [facility]. It is unclear whether or not that provider we will be ordering a follow-up ultrasound or not as well. I ask the patient to please review all of this with her primary care provider tomorrow but I am placing an order for a follow-up ultrasound, as her primary care provider did request this, and she, the patient, and I, and will have a tele visit afterwards to review the findings. I did ask the patient to make a decision whether she was getting gynecological care here or within the [facility] to avoid this duplication of care and confusion. I wished her well with her carpal tunnel surgery and her swelling and medications to manage this, and she is hopeful the bariatric surgery will help with her medical concerns. [facility] Medical History Chronic diastolic (congestive) heart failure Anal fistula Sinus complaint Sterilization Kidney stone Acute appendicitis Vesicular dermatitis Enlarged lymph node Acute bacterial tonsillitis History of claustrophobia History of anxiety Hx of tendinitis Hx of bursitis History of knee problem Hx of chronic arthritis Family history of heart murmur History of asthma Surgical History H/O bilateral mastectomy History of kidney surgery Hx of tubal ligation Hx of tonsillectomy Hx of breast surgery Hx of appendectomy Hx of cholecystectomy Hx of knee surgery History of Achilles tendon repair Family History Mother Accelerated hypertension Arthritis Cancer of stomach Father Arthritis Sister No problems noted. Sister Arthritis Accelerated hypertension Sister No problems noted. Sister No problems noted. Brother Overdose Brother HIV disease Son Asthma Son No problems noted. Son No problems noted. Son No problems noted. Daughter No problems noted. Social History Housing: Apartment Alcohol intake: former Patient Tobacco Use Status: Former Tobacco user Tobacco use type: Cigarette Cigarettes Per Day: 1 Years Smoked: 30 e-Cigarette/Vaping Use: Never Used service: No Current occupational status: unemployed Cognitive needs: Yes Hearing needs: No Vision needs: Yes Female Reproductive History Menstrual Age of Menarche: 14 Date of last menstrual period: 08/15/24 control method: permanent sterilization Telehealth Telehealth Telehealth Platform: Telephone Location of provider rendering services: practice address Location of patient: address on file Patient Identification confirmed using: Name, : Yes Telehealth method: voice only Patient verbally consented to treatment: Yes Patient verbally consented to billing insurance company: Yes Patient informed of any privacy concerns related to visit: Yes Minutes spent on Phone/Video with Pt.: 25 Assessment & Plan Assessment & Plan (1) History of menorrhagia: Comment: Worse the last 2 yrs Code(s): Z87.42 - Personal history of other diseases of the female genital tract Category: Medical (2) Ovarian cyst, complex: Comment: per u/s done at [facility] on 08/17/24, complex cyst on left, NOT in ovary or uterus. f/u 6-12 w Code(s): N83.299 - Other ovarian cyst, unspecified side Category: Medical Plan This was a very lengthy and challenging historical visit by telephone in [place]. The patient somehow had had an ultrasound done at [facility] that showed a 2 cm complex cyst that was neither in the ovary or the uterus on patient's left side the patient cites burning pain before her period, Usually on the right side and it also extends to the 1st 2 days fof her periods and her periods have gotten heavier and are clottier. With multiple questioning, the patient could not tell me who ordered that ultrasound other than she thought it was being done as part of her extensive evaluation to check out everything before getting her bariatric surgery, she is getting full evaluation she tells me that she is having the bariatric surgery through [facility] but she does not have a date yet. in addition she has carpal tunnel surgery scheduled for October 19 she has upcoming visits with all of her doctors including a visit with her primary care doctor tomorrow, 09/02/24, and she plans to discuss everything with her then. I reviewed the april u/s, normal, and the 08/17/24 cdh ultrasound with her which showed the cyst on the opposite side of her pain, but nonetheless recommendation was made for follow-up in 6-12 weeks from the 08/17 date of that ultrasound. I am going to order a follow-up ultrasound, and because of the dates of her surgery and dates of LMP, of , and regular menses, decision made to request the ultrasound to be done around 8 weeks so it will avoid her surgery. I explained all of this to the patient. When the patient went to her calendar to review the date of her LMP she remembered that she had a continuous towel roller at [address] [place] [address] in [place], and that that was who ordered the original ultrasound that was done 08/17 at [facility]. She had not disclosed this before and she did not remember the name of the person, though i cited the name on the u/s. she tells me she wants to get her care at [facility]. It is unclear whether or not that provider we will be ordering a follow-up ultrasound or not as well. I ask the patient to please review all of this with her primary care provider tomorrow but I am placing an order for a follow-up ultrasound, as her primary care provider did request this, and she, the patient, and I, and will have a tele visit afterwards to review the findings. I did ask the patient to make a decision whether she was getting gynecological care here or within the [facility] to avoid this duplication of care and confusion. I wished her well with her carpal tunnel surgery and her swelling and medications to manage this, and she is hopeful the bariatric surgery will help with her medical concerns. Orders: Orders US pelvic and transvaginal 8 Weeks N83.299 - Other ovarian cyst, unspecified side, Z87.42 - Personal history of other diseases of the female genital tract Coding Level of Care Code Tele Est Pt Level 3 (38322) Diagnoses History of menorrhagia Z87.42 Ovarian cyst, complex N83.299 Time Spent (min) 55 Comment 5cr/25,speaking w pt/ 20 documenting/ ordering/making plan
== END 2024-09-01 10:17 | disposition home or self-care (01) ==
LOC: HO.HWSM 09:53
PROVIDERS: Visit Provider Advanced Practice Midwife
DX: Z87.42 Personal history of other diseases of the female genital tract (principal); N83.299 Other ovarian cyst, unspecified side
CPT/HCPCS: 99213

== ENCOUNTER 2024-09-02 15:30 | Emergency (ER) | payer OTHER, SELFPAY ==
--- NOTE | ~2024-09-02 | CT_ITS ---
EXAMINATION: CT ABDOMEN AND PELVIS WITHOUT CONTRAST CLINICAL INFORMATION: Abdominal pain. COMPARISON: June 11, 2024 TECHNIQUE: Multidetector volumetric imaging was performed from the superior aspect of the liver through the pubic symphysis. Sagittal and coronal reformatted images were obtained on the technologist's workstation. This CT examination was performed using dose optimization techniques as appropriate, variously including the following: *Automated exposure control *Adjustment of mA and/or kV according to patient size (this includes techniques or standardized protocols for targeted exams where dose is matched to indication/reason for exam; i.e. extremities or head) *Use of iterative reconstruction technique DLP: 1324 mGy-cm FINDINGS: LUNG BASES: The visualized lung bases are unremarkable. LIVER, GALLBLADDER, AND BILIARY TREE: The liver is normal in size, shape, and attenuation. No focal hepatic lesion or biliary ductal dilatation is present. There has been a prior cholecystectomy. PANCREAS: Unremarkable. SPLEEN: Unremarkable. ADRENAL GLANDS: Unremarkable. KIDNEYS AND URETERS: The kidneys are normal in size, shape, and attenuation. There are adjacent nonobstructing 1 to 2 mm calculi lower pole left kidney. There is no hydronephrosis. BLADDER: Unremarkable. GASTROINTESTINAL TRACT: There are scattered diverticula of the ascending and descending colon without diverticulitis. The appendix is not seen. ABDOMINAL WALL: No significant hernia is appreciated. LYMPH NODES: Normal. VASCULAR: There is mild atherosclerotic plaque of the abdominal aorta. PELVIC VISCERA: Unremarkable. OSSEOUS STRUCTURES: There is diffuse mild thoracolumbar degenerative change. CT/CT abdomen pelvis wo IV con IMPRESSION: Nonobstructing left renal calculi. Scattered diverticula without diverticulitis. No acute abnormality CT scan abdomen pelvis. Fleischner guidelines were followed. Electronically signed by: German Paz MD 09/03/2024 01:28 AM [facility]
[2024-09-02 15:43] VITALS: BP 138/87; PULSE 71; RESP 20; TEMP 36.3; O2SAT 96; BMI 54.0
--- NOTE | 2024-09-02 15:46 | ED_ITS ---
HPI - General Adult General Chief complaint: Abdominal Pain Stated complaint: abd pain Time Seen by Provider: 09/02/24 21:56 Source: patient Limitations: language barrier History of Present Illness ED Provider: Cony Hernandes PA-C HPI narrative: 54-year-old morbidly obese female with a history of prior H pylori and GERD, presents with epigastric pain x3 days. Patient describes her discomfort as a burning sensation that radiates up to her throat. Associated constipation, unclear when she had her last full bowel movement. Denies abdominal distention, nausea, vomiting or inability to pass flatus. Patient also states she just started Ozempic. Related Data Home Medications ?Medication ?Instructions ?Recorded ?Confirmed ibuprofen 800 mg tablet 800 mg PO TID 03/31/21 09/01/24 omeprazole 20 mg capsule,delayed 20 mg PO DAILY 06/17/24 09/01/24 release lidocaine 5 % topical patch 1 patch topical DAILY 06/24/24 09/01/24 mecobalamin (vitamin B12) 10,000 1,000 mcg subcut .once a week 06/24/24 09/01/24 mcg solution for injection Previous Rx's ?Medication ?Instructions ?Recorded dicyclomine 20 mg tablet 20 mg PO TID #20 tabs 06/11/24 semaglutide (weight loss) 0.25 0.25 mg (0.5 mL) subcut QWEEK #2 mL 06/17/24 mg/0.5 mL subcutaneous pen injector (Mady) albuterol sulfate 90 mcg/actuation 2 puff inhalation Q6H PRN 07/20/24 aerosol inhaler (Proventil HFA) shortness of breath or wheezing #6.7 grams cholecalciferol (vitamin D3) 25 50 mcg (2 x 25 mcg (1,000 unit)) 07/20/24 mcg (1,000 unit) capsule (Vitamin PO DAILY #30 caps D3) fexofenadine 180 mg tablet 180 mg PO DAILY #30 tabs 07/20/24 sennosides 8.6 mg capsule (senna) 8.6 mg PO BEDTIME PRN constipation 07/20/24 #30 caps vitamin A palmitate 3,000 mcg 20,000 unit PO DAILY 30 days #60 07/20/24 (10,000 unit) tablet tabs benzonatate 100 mg capsule 100 mg PO TID PRN cough #14 caps 07/21/24 thiamine HCl (vitamin B1) 100 mg 100 mg PO DAILY 90 days #90 tabs 07/31/24 tablet furosemide 40 mg tablet 60 mg (1.5 x 40 mg) PO DAILY #135 08/11/24 tabs docusate sodium 100 mg capsule 100 mg PO BID 90 days #180 caps 08/13/24 (Colace) semaglutide (weight loss) 0.5 0.5 mg (0.5 mL) subcut QWEEK #2 mL 08/28/24 mg/0.5 mL subcutaneous pen injector (Wegovy) sucralfate 1 gram tablet (Carafate) 1 g PO BID PRN acid reflux #14 tabs 09/03/24 Allergies Allergy/AdvReac Type Severity Reaction Status Date / Time latex [Latex] Allergy Unknown ITCHY, Verified 09/02/24 15:44 RASH , AND FUNGUS acetaminophen Allergy Dizziness Verified 09/02/24 15:44 oxycodone Allergy Rash Verified 09/02/24 15:44 Opioids - Morphine Analogues AdvReac Severe Shortness Verified 09/02/24 15:44 of Breath Review of Systems 2 Review of Systems: Yes all other systems are reviewed and are negative Constitutional: Constitutional: Denies fatigue and Denies fever(s) Cardiovascular: Cardiovascular: Denies chest pain and Denies dyspnea Respiratory: Respiratory: Denies cough and Denies dyspnea Gastrointestinal: Gastrointestinal: Reports abdominal pain, Reports constipation, Reports dyspepsia, Denies nausea and Denies vomiting Endocrine: Endocrine: Denies fatigue PMFSH Past Medical History Attestation statement: The following information was validated with the patient. Medical History Chronic diastolic (congestive) heart failure Anal fistula Sinus complaint Sterilization Kidney stone Acute appendicitis Vesicular dermatitis Enlarged lymph node Acute bacterial tonsillitis History of claustrophobia History of anxiety Hx of tendinitis Hx of bursitis History of knee problem Hx of chronic arthritis Family history of heart murmur History of asthma Surgical History H/O bilateral mastectomy History of kidney surgery Hx of tubal ligation Hx of tonsillectomy Hx of breast surgery Hx of appendectomy Hx of cholecystectomy Hx of knee surgery History of Achilles tendon repair Family History Family History Mother Accelerated hypertension Arthritis Cancer of stomach Father Arthritis Sister No problems noted. Sister Arthritis Accelerated hypertension Sister No problems noted. Sister No problems noted. Brother Overdose Brother HIV disease Son Asthma Son No problems noted. Son No problems noted. Son No problems noted. Daughter No problems noted. Social History Social History Housing: Apartment Alcohol intake: former Patient Tobacco Use Status: Former Tobacco user Tobacco use type: Cigarette Cigarettes Per Day: 1 Years Smoked: 30 Smoked in Last 30 Days: No e-Cigarette/Vaping Use: Never Used Use of substances other than those prescribed or required for medical reasons: No Advance Directives: No Advance Directives Information Provided: No Patient : No service: No Current occupational status: unemployed Cognitive needs: Yes Hearing needs: No Vision needs: Yes Physical Exam ED Vital Signs: Vital Signs - 24 hr 09/02/24 15:43 09/02/24 19:32 09/02/24 22:30 Temperature 97.3 F 97.8 F 97.8 F Pulse Rate 71 61 66 Respiratory Rate 20 13 20 Blood Pressure 138/87 137/69 150/83 H Pulse Oximetry 96 99 94 Oxygen Delivery Method Room Air Room Air Room Air 09/02/24 23:40 Temperature 97.6 F Pulse Rate 63 Respiratory Rate 18 Blood Pressure 122/47 L Pulse Oximetry 96 Oxygen Delivery Method Room Air BMI result Body Mass Index 54.0 Const Other: Alert, well-appearing Orientation/consciousness: patient oriented x3 Resp Other: Nonlabored respiration Cardio Other: Normal peripheral perfusion GI Other: Abdomen is soft, nondistended, obese, mild tenderness epigastric region without guarding Skin Other: Warm dry no rash Neuro General: patient oriented x3, no focal motor deficits and CN's II-XI intact bilaterally Psych Other: Calm cooperative Course Course Course Narrative: This is a Rapid Medical Examination (RME) performed by Esther Tristan PA-C in triage. Full HPI, ROS, assessment and treatment plan per primary provider in the Main ED. 54 yo female hx GERD here for eval of burning sensation to epigastric region, worse when lying down at night x2 dyas. not responsive to prilosec. Plan: labs, ekg Reevaluation(s) Reevaluation #1: Radiology expressed concern that the imaging would be of poor quality with a KUB given the patient's habitus, they recommended a non-con CT scan Medications Administered Discontinued Medications Generic Name Dose Route Start Last Admin Trade Name Thuanq PRN Reason Stop Dose Admin Al Hydroxide/Mg Hydroxide 30 ml 09/02/24 22:52 09/02/24 23:35 Magnesium Hydrox/Alum Hydrox 30 Ml Oral.Susp PO 09/02/24 22:53 30 ml ONCE ONE Administration Medical Decision Making Medical Decision Making [facility] Narrative: 54-year-old morbidly obese female with a history of prior H pylori and GERD, presents with epigastric pain x3 days. Patient describes her discomfort as a burning sensation that radiates up to her throat. Associated constipation, unclear when she had her last full bowel movement. Denies abdominal distention, nausea, vomiting or inability to pass flatus. Patient also states she just started Ozempic. Problem: GERD, prior H pylori, obesity , constipation History: Per patient I have considered the following differential diagnoses: GERD, gastritis, perforated peptic ulcer, constipation, bowel obstruction Plan: Screening labs obtained and are unremarkable. Her exam was also benign, no peritoneal signs, I have no concern for perforated peptic ulcer. This was only considered given her history of H pylori. I feel that her GERD is exacerbated by her current constipation. We will obtain a KUB To assess stool burden. I have independently reviewed the following tests: Labs: No leukocytosis, not anemic, no electrolyte abnormality, CT abdomen and pelvis: Stool burden noted Lab Data 09/02/24 16:09 09/02/24 16:09 Labs: Lab Results 09/02/24 09/02/24 Range/Units 16:09 23:38 WBC 7.0 (4.8-10.8) X10*3/uL RBC 4.69 (4.20-5.50) X10*6/uL Hgb 13.6 (12.0-16.0) g/dl Hct 41.3 (37.0-47.0) % MCV 88.1 (80.0-98.0) fL MCH 29.0 (27.0-33.0) pg MCHC 32.9 (31.0-35.0) g/dl RDW 12.9 (11.0-16.0) % Plt Count 275 (160-400) X10*3/uL MPV 9.6 (9.4-12.3) fL Immature Gran % (Auto) 0.4 (0.0-0.4) % Neut % (Auto) 64.0 (45-73) % Lymph % (Auto) 26.4 (20-40) % [place] % (Auto) 7.5 (2-11) % Eos % (Auto) 1.1 (0-4) % Baso % (Auto) 0.6 (0-2) % Lymph # (Auto) 1.9 (1.2-4.9) X10*3/uL [place] # (Auto) 0.5 (0.1-1.2) X10*3/uL Eos # (Auto) 0.1 (0.0-0.4) X10*3/uL Baso # (Auto) 0.0 (0.0-0.2) X10*3/uL Abs Immat Gran (auto) 0.03 (0.00-0.03) X10*3/uL Absolute Neuts (auto) 4.5 (2.0-8.3) x10*3/uL Absolute Nucleated RBC 0.000 (0.0-0.012) X10*3/uL Nucleated RBC % (auto) 0.0 (0.0-0.2) /100WBC Sodium 139 (135-145) mmol/L Potassium 4.1 (3.3-5.1) mmol/L Chloride 104 (96-108) mmol/L Carbon Dioxide 27 (22-29) mmol/L Anion Gap 12 (12-20) BUN 17 H (9-16) mg/dL Creatinine 0.66 (0.5-1.4) mg/dL Estim Creat Clear Calc 167.0 Estimated GFR > 60 Random Glucose 95 (60-115) mg/dL Calcium 9.6 D (8.4-10.2) mg/dL Magnesium 2.0 (1.6-2.6) mg/dL Total Bilirubin 0.3 (0.0-1.0) mg/dL AST 19 (5-31) U/L ALT 20 (0-31) U/L Alkaline Phosphatase 127 H (39-117) U/L Troponin I High Sens < 2.7 (<3.5-17.0) ng/L Total Protein 7.9 (6.5-8.0) g/dL Albumin 4.4 (3.5-5.0) g/dL Lipase 10 (8-78) U/L Urine Color Yellow Urine Appearance Cloudy Urine pH 6.5 (5.0-9.0) Ur Specific [place] 1.025 (1.005-1.025) Urine Protein 30 (1+) H (Neg-Trace) mg/dL Urine Glucose (UA) Negative (Negative) mg/dL Urine Ketones Trace (Negative) mg/dL Urine Blood Negative (Negative) Urine Nitrite Negative (Negative) Ur Leukocyte Esterase Moderate (2+) H (Negative) Urine RBC 0-2 (0-2) /HPF Urine WBC 6-10 (0-5) /HPF Ur Squamous Epith Cells 11-20 (0-2) /HPF Urine Bacteria 2+ (None Seen) Hyaline Casts 0-2 (0-2) /LPF Discharge Plan Discharge Clinical Impression: Chronic GERD, Constipation Patient Disposition: Home, Self-Care Instructions: Constipation (ED), Gastroesophageal Reflux Disease (ED) Additional Instructions: You were found to be constipated, this is the cause of your discomfort. See home care instructions. Constipation is known to exacerbate GERD symptoms. Use the Carafate as needed for your poorly controlled acid reflux. In regard to the constipation, you need to start taking an [id number] stool softener such as Colace, twice a day. You also need to purchase [id number] MiraLax, mix the powder per package instructions, drink the liquid 3 to 4 times a day until you begin having multiple large volume bowel movements. Once you clear your current stool burden, use a stool softener daily, you may require the MiraLax 1 to 2 times a week. Follow up with your primary care provider as needed. Prescriptions: New sucralfate [Carafate] 1 gram tablet 1 g PO BID PRN (Reason: acid reflux) Qty: 14 0RF No Action thiamine HCl (vitamin B1) 100 mg tablet 100 mg PO DAILY 90 Days Qty: 90 1RF furosemide 40 mg tablet 60 mg PO DAILY Qty: 135 1RF docusate sodium [Colace] 100 mg capsule 100 mg PO BID 90 Days Qty: 180 0RF Wegovy 0.5 mg/0.5 mL pen injector 0.5 mg subcut QWEEK Qty: 2 0RF dicyclomine 20 mg tablet 20 mg PO TID Qty: 20 0RF benzonatate 100 mg capsule 100 mg PO TID PRN (Reason: cough) Qty: 14 0RF omeprazole 20 mg capsule,delayed release(DR/EC) 20 mg PO DAILY Wegovy 0.25 mg/0.5 mL pen injector 0.25 mg subcut QWEEK Qty: 2 0RF Rx Instructions: administer weeks 1 through 4 of therapy ibuprofen 800 mg tablet 800 mg PO TID lidocaine 5 % adhesive patch,medicated 1 patch topical DAILY Rx Instructions: leave on most painful area for up to 12 hrs mecobalamin (vitamin B12) 10,000 mcg recon soln 1,000 mcg subcut .once a week senna 8.6 mg capsule 8.6 mg PO BEDTIME PRN (Reason: constipation) Qty: 30 0RF albuterol sulfate [Proventil HFA] 90 mcg/actuation HFA aerosol inhaler 2 puff inhalation Q6H PRN (Reason: shortness of breath or wheezing) Qty: 6.7 0RF cholecalciferol (vitamin D3) [Vitamin D3] 25 mcg (1,000 unit) capsule 50 mcg PO DAILY Qty: 30 3RF fexofenadine 180 mg tablet 180 mg PO DAILY Qty: 30 3RF vitamin A palmitate 3,000 mcg (10,000 unit) tablet 20,000 unit PO DAILY 30 Days Qty: 60 0RF Print Language: Niuean
--- NOTE | 2024-09-02 15:47 | ECG_ITS ---
Test Reason : EPIGASTRIC PAIN Blood Pressure : / mmHG Vent. Rate : 063 BPM Atrial Rate : 063 BPM P-R Int : 154 ms QRS Dur : 098 ms QT Int : 416 ms P-R-T Axes : 036 041 027 degrees QTc Int : 425 ms Normal sinus rhythm Normal ECG When compared with ECG of 24-JUL-2024 07:55, No significant change was found Referred By: Nimo Tristan Electronically Signed By:LIBAN SCHAEFER MD
[2024-09-02 16:14] LABS: MANUAL DIFF FLAG NO
[2024-09-02 16:18] LABS: Basophils Percent Auto 0.6 % (0-2); Eosinophils Absolute Auto 0.1 X10*3/uL (0.0-0.4); Eosinophils Percent Auto 1.1 % (0-4); Hematocrit 41.3 % (37.0-47.0); Hemoglobin 13.6 g/dl (12.0-16.0); Imm Gran Abs Auto 0.03 X10*3/uL (0.00-0.03); Imm Gran Pct Auto 0.4 % (0.0-0.4); Lymphocytes Absolute Auto 1.9 X10*3/uL (1.2-4.9); Lymphocytes Percent Auto 26.4 % (20-40); Mean Corpuscular HGB Conc 32.9 g/dl (31.0-35.0); Mean Corpuscular Volume 88.1 fL (80.0-98.0); Mean Platelet Volume 9.6 fL (9.4-12.3); Monocytes Absolute Auto 0.5 X10*3/uL (0.1-1.2); Monocytes Percent Auto 7.5 % (2-11); Neutrophils Absolute Auto 4.5 x10*3/uL (2.0-8.3); Platelet Count 275 X10*3/uL (160-400); Red Blood Count 4.69 X10*6/uL (4.20-5.50); Red Cell Distribution Width 12.9 % (11.0-16.0)
[2024-09-02 16:38] LABS: Alanine Aminotransferase 20 U/L (0-31); Albumin Level 4.4 g/dL (3.5-5.0); Alkaline Phosphatase 127 U/L (39-117); Anion Gap 12 (12-20); Aspartate Amino Transferase 19 U/L (5-31); Bilirubin Total 0.3 mg/dL (0.0-1.0); Blood Urea Nitrogen 17 mg/dL (9-16); Calcium 9.6 mg/dL (8.4-10.2); Carbon Dioxide 27 mmol/L (22-29); Chloride 104 mmol/L (96-108); Estimated Glomerular Filt Rate > 60; Glucose Random 95 mg/dL (60-115); Lipase 10 U/L (8-78); Potassium 4.1 mmol/L (3.3-5.1); Sodium 139 mmol/L (135-145); Total Protein 7.9 g/dL (6.5-8.0)
[2024-09-02 16:46] LABS: Troponin-I High Sensitivity < 2.7 ng/L (<3.5-17.0)
[2024-09-02 19:32] VITALS: BP 137/69; PULSE 61; RESP 13; TEMP 36.6; O2SAT 99
[2024-09-02 22:30] VITALS: BP 150/83; PULSE 66; RESP 20; TEMP 36.6; O2SAT 94
--- NOTE | 2024-09-02 23:23 | PC.NURSE ---
Report taken from Maggie CHRISTIANSON, assumed care of pt at this time- 0ff floor to CT.
[2024-09-02] MEDS: Magnesium Hydrox/Alum Hydrox 30 ML ORAL.SUSP PO (23:35)
[2024-09-02 23:40] VITALS: BP 122/47; PULSE 63; RESP 18; TEMP 36.4; O2SAT 96
--- NOTE | 2024-09-02 23:43 | PC.NURSE ---
Returned from CT, medicated per DEC for 8/10 epigastric pain. Ambulatory to bathroom with steady gait, urine sample obtained. VSS. Awaiting results and improvement in symptoms.
[2024-09-02 23:46] LABS: Appearance Urine Cloudy; Color Urine Yellow; Glucose Urine UA Negative (Negative); Leukocyte Esterase Urine Moderate (2+) (Negative); Nitrite Urine Negative (Negative); PH 6.5 (5.0-9.0); Specific Gravity - Urine 1.025 (1.005-1.025); UMIC TRIGGER UACC YES; Urine Blood Negative (Negative); Urine Ketones Trace mg/dL (Negative); Urine Protein 30 (1+) mg/dL (Neg-Trace)
[2024-09-03 00:05] LABS: Bacteria Urine 2+ (None Seen); Hyaline Casts Urine 0-2 /LPF (0-2); RBC Urine 0-2 /HPF (0-2); UACC Culture Trigger YES
--- NOTE | 2024-09-03 01:46 | PC.NURSE ---
Provider to bedside for reeval, cleared for dc home.
[2024-09-03 01:51] VITALS: BP 122/47; PULSE 63; RESP 18; TEMP 36.4; O2SAT 96
== END 2024-09-03 01:52 | disposition home or self-care (01) ==
PROVIDERS: Physician Assistant Medical; Emergency Provider Emergency Medicine
DX: K21.9 Gastro-esophageal reflux disease without esophagitis (principal); K59.00 Constipation, unspecified; R10.13 Epigastric pain; Z79.899 Other long term (current) drug therapy
CPT/HCPCS: 36415; 74176; 80053; 81001; 83690; 83735; 84484; 85025; 87086; 93005; 99284; 99285

== ENCOUNTER → 2024-09-02 15:47 | Outpatient (BNV) | payer OTHER, SELFPAY | PROVIDERS: Emergency Provider Emergency Medicine; Visit Provider Internal Medicine Cardiovascular Disease | DX: R10.13 Epigastric pain (principal) | CPT/HCPCS: 93010 ==

== ENCOUNTER 2024-09-18 09:55 | Outpatient (AMB) | payer OTHER, SELFPAY ==
--- NOTE | 2024-09-18 10:02 | A.OFFVIS_ITS ---
Intake Visit Reasons: (OV) F/U SWL Commercial Housekeeper Required: Yes Commercial Housekeeper Services: Commercial Housekeeper Present Commercial Housekeeper Name: hospital cmi Allergies latex [Latex] Allergy (Unknown, Verified 09/18/24 10:14) ITCHY, RASH , AND FUNGUS acetaminophen Allergy (Verified 09/18/24 10:14) Dizziness oxycodone Allergy (Verified 09/18/24 10:14) Rash Opioids - Morphine Analogues Adverse Reaction (Severe, Verified 09/18/24 10:14) Shortness of Breath Medication List - Last Reconciled 09/18/24 by NICCI Hannah albuterol sulfate 90 mcg/actuation (Proventil HFA) 2 puffs inhalation Q6H PRN benzonatate 100 mg PO TID PRN cholecalciferol (vitamin D3) (Vitamin D3) 50 mcg (2 x 25 mcg (1,000 unit)) PO DAILY dicyclomine 20 mg PO TID docusate sodium (Colace) 100 mg PO BID 90 days fexofenadine 180 mg PO DAILY furosemide 60 mg (1.5 x 40 mg) PO DAILY ibuprofen 800 mg PO TID lidocaine 5% 1 patch topical DAILY mecobalamin (vitamin B12) 1,000 mcg subcut .once a week omeprazole 20 mg PO DAILY semaglutide (weight loss) (Wegovy) 0.5 mg (0.5 mL) subcut QWEEK semaglutide (weight loss) (Wegovy) 0.25 mg (0.5 mL) subcut QWEEK sennosides (senna) 8.6 mg PO BEDTIME PRN Shower Chair As directed sucralfate (Carafate) 1 g PO BID PRN thiamine HCl (vitamin B1) 100 mg PO DAILY 90 days vitamin A palmitate 20,000 units PO DAILY 30 days HPI Comments Details: 54-year-old female who presents to the office today in follow-up for surgical weight loss. She was initially seen on 07/10/2024 with a weight of 381 lb. Weight today is 371.8 lb with a BMI of 54.9. This corresponds to a 9.2 lb weight loss or 2.4% total body weight loss. Of note, she was in the emergency room with her mother who was ill. She additionally has not been taking her blood pressure medicine this morning, blood pressure 187/101 although denies any complaints of headache, blurry vision, chest pain. She states she does not take her blood pressure medication in the morning if she is leaving the house as it makes her half to use the bathroom. She states she is having some trouble with the lucila. 09/23 f/u with ortho for hip pain. Meal plan: 5 Orgain 2 scoops in 8 oz water meal with 13 forks protein and veg drinking plenty of water 8-10 bottles Exercise plan: just doing upper body. walking outside, not tracking calories. [facility] Medical History Chronic diastolic (congestive) heart failure Anal fistula Sinus complaint Sterilization Kidney stone Acute appendicitis Vesicular dermatitis Enlarged lymph node Acute bacterial tonsillitis History of claustrophobia History of anxiety Hx of tendinitis Hx of bursitis History of knee problem Hx of chronic arthritis Family history of heart murmur History of asthma Surgical History H/O bilateral mastectomy History of kidney surgery Hx of tubal ligation Hx of tonsillectomy Hx of breast surgery Hx of appendectomy Hx of cholecystectomy Hx of knee surgery History of Achilles tendon repair Family History Mother Accelerated hypertension Arthritis Cancer of stomach Father Arthritis Sister No problems noted. Sister Arthritis Accelerated hypertension Sister No problems noted. Sister No problems noted. Brother Overdose Brother HIV disease Son Asthma Son No problems noted. Son No problems noted. Son No problems noted. Daughter No problems noted. Social History Housing: Apartment Alcohol intake: former Patient Tobacco Use Status: Former Tobacco user Tobacco use type: Cigarette Cigarettes Per Day: 1 Years Smoked: 30 e-Cigarette/Vaping Use: Never Used service: No Current occupational status: unemployed Cognitive needs: Yes Hearing needs: No Vision needs: Yes Female Reproductive History Menstrual Age of Menarche: 14 Physical Exam Const General: healthy appearing and no acute distress Resp Effort & Inspection: normal respiratory effort Auscultation: clear to auscultation bilaterally Cardio Rate: regular rate Rhythm: regular rhythm GI Auscultation: normal bowel sounds Extrem General: Yes normal to inspection Assessment & Plan Assessment & Plan (1) Morbid obesity with BMI of 50.0-59.9, adult: Code(s): E66.01 - Morbid (severe) obesity due to excess calories; Z68.43 - Body mass index [BMI] 50.0-59.9, adult Category: Medical Plan: Discussed the importance of following the lucila exactly. Her exercise tolerance has been limited due to hip pain. She is scheduled to follow-up with ortho. She additionally states she is scheduled for right carpal tunnel surgery at the end of the month. Encouraged to text weekly with her weights. Encouraged to go back into the right BMI lucila to recalibrate her meal plan given the 9 lb weight loss. Follow-up in the office in 1 month
== END 2024-09-18 10:33 | disposition home or self-care (01) ==
LOC: HO.HBS 09:55
PROVIDERS: Visit Provider Physician Assistant Surgical
DX: E66.01 Morbid (severe) obesity due to excess calories (principal); Z68.43 Body mass index [BMI] 50.0-59.9, adult
CPT/HCPCS: 99213; G2211

== ENCOUNTER → 2024-09-18 09:55 | Outpatient (BNVA) | payer OTHER, SELFPAY | PROVIDERS: Visit Provider Physician Assistant Surgical | DX: E66.01 Morbid (severe) obesity due to excess calories (principal); Z68.43 Body mass index [BMI] 50.0-59.9, adult | CPT/HCPCS: 99212 ==

== ENCOUNTER 2024-09-22 09:07 | Outpatient (REF) | payer OTHER, SELFPAY ==
--- NOTE | ~2024-09-22 | FL_ITS ---
EXAMINATION: XR FLUOROSCOPY UPPER GI WITH AIR CLINICAL INFORMATION: Preoperative evaluation prior to bariatric surgery COMPARISON: None TECHNIQUE: Fluoroscopic air contrast upper GI examination was performed utilizing standard techniques with thin and thick barium and effervescent granules. Numerous spot images were obtained. FINDINGS: Dual and single contrast images of the esophagus demonstrate normal caliber, contour, and mucosal pattern. No evidence of stricture, mass, or ulcerations identified. Esophageal peristalsis is mildly disorganized. A very small type I hiatal hernia is present. No significant gastroesophageal reflux was seen during the course of the examination and on reflux views. Dual contrast and single contrast images of the stomach demonstrated a normal contour. Evaluation of the gastric mucosa is limited due to poor coating of the barium. No obvious masses or ulcerations are seen. Contrast freely passed into the gastric antrum and duodenal bulb without delay. Single and air-contrast images of the duodenal bulb demonstrate no abnormality. The duodenal sweep has a normal appearance, course, and mucosal fold appearance. The imaged proximal jejunum has a normal fold pattern and caliber. FLUOROSCOPY TIME: 2 minutes 55 seconds Number of Spot Images: 11 Number of Cine: 12 DOSE AREA PRODUCT: 2162 uGy-m2 (microgray-meter squared) FL/FL upper GI w air IMPRESSION: 1. Mildly disorganized esophageal peristalsis. 2. Very small type I hiatal hernia. 3. Limited evaluation of the gastric mucosa due to poor coating of the barium. This procedure was performed by Suleiman Zaman PA-C, and supervised by Dr. Awad Electronically signed by: Giovanni Awad MD 09/23/2024 03:44 PM [facility]
== END 2024-09-22 09:08 | disposition home or self-care (01) ==
LOC: HO.XRAY 09:07
PROVIDERS: Visit Provider Physician Assistant Surgical
DX: E66.01 Morbid (severe) obesity due to excess calories (principal); Z68.43 Body mass index [BMI] 50.0-59.9, adult; E50.9 Vitamin A deficiency, unspecified; E53.8 Deficiency of other specified B group vitamins; E55.9 Vitamin D deficiency, unspecified
CPT/HCPCS: 71046; 74246

== ENCOUNTER → 2024-09-22 09:10 | Outpatient (BNV) | payer OTHER, SELFPAY | PROVIDERS: Visit Provider Physician Assistant Surgical | DX: Z01.818 Encounter for other preprocedural examination (principal); E66.01 Morbid (severe) obesity due to excess calories; Z68.43 Body mass index [BMI] 50.0-59.9, adult | CPT/HCPCS: 74246 ==

== ENCOUNTER 2024-09-23 11:36 | Outpatient (AMB) | payer OTHER, SELFPAY ==
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
[2024-09-23 11:43] VITALS: BP 161/91; PULSE 61; RESP 19; O2SAT 97; BMI 54.6
== END 2024-09-23 12:25 | disposition home or self-care (01) ==
PROVIDERS: Visit Provider Registered Nurse Emergency
DX: M54.50 Low back pain, unspecified (principal); M70.62 Trochanteric bursitis, left hip; M79.18 Myalgia, other site
CPT/HCPCS: 99204; G2211

== ENCOUNTER → 2024-09-23 11:36 | Outpatient (BNVA) | payer OTHER, SELFPAY | PROVIDERS: Visit Provider Registered Nurse Emergency | DX: M54.50 Low back pain, unspecified (principal); M70.62 Trochanteric bursitis, left hip; M79.18 Myalgia, other site | CPT/HCPCS: 99202 ==

== ENCOUNTER 2024-09-28 12:34 | Outpatient (AMB) | payer OTHER, SELFPAY ==
[2024-09-28 12:44] VITALS: BP 138/80; PULSE 78; BMI 55.7
--- NOTE | 2024-09-28 12:44 | MHC.OFFVIS ---
Vital Signs 09/28/24 12:44 Height 5 ft 9 in Weight 376 lb 15.847 oz BMI 55.7 BP 138/80 Blood Pressure Location Lt brachial Position Sitting Pulse 78 Pulse Source Pulse Oximeter Intake Visit Reasons: 4 mnth f/up-echo/ clearance for bariatrics surg Inspection And Testing Supervisor Required: Yes Inspection And Testing Supervisor Name: DANIEL [id number] Allergies Seasonal Allergies Allergy (Severe, Verified 09/23/24 11:45) Sneezing latex [Latex] Allergy (Unknown, Verified 09/18/24 10:14) ITCHY, RASH , AND FUNGUS acetaminophen Allergy (Verified 09/18/24 10:14) Dizziness oxycodone Allergy (Verified 09/18/24 10:14) Rash Opioids - Morphine Analogues Adverse Reaction (Severe, Verified 09/18/24 10:14) Shortness of Breath Medication List - Last Reconciled 09/28/24 by Patrice Horner MD albuterol sulfate 90 mcg/actuation (Proventil HFA) 2 puffs inhalation Q6H PRN benzonatate 100 mg PO TID PRN cholecalciferol (vitamin D3) (Vitamin D3) 50 mcg (2 x 25 mcg (1,000 unit)) PO DAILY dicyclomine 20 mg PO TID docusate sodium (Colace) 100 mg PO BID 90 days fexofenadine 180 mg PO DAILY furosemide 60 mg (1.5 x 40 mg) PO DAILY ibuprofen 800 mg PO TID lidocaine 5% 1 patch topical DAILY mecobalamin (vitamin B12) 1,000 mcg subcut .once a week omeprazole 20 mg PO DAILY semaglutide (weight loss) (Wegovy) 0.25 mg (0.5 mL) subcut QWEEK sennosides (senna) 8.6 mg PO BEDTIME PRN Shower Chair As directed sucralfate (Carafate) 1 g PO BID PRN thiamine HCl (vitamin B1) 100 mg PO DAILY 90 days vitamin A palmitate 20,000 units PO DAILY 30 days HPI Comments Details: Ladonna returns for follow-up regarding congestive heart failure. Recently seen in this regard. She is morbidly obese. Has been seen by at [facility] in 2022. At that time, apparently diastolic heart failure with a diagnosis. There was planned for left/right heart catheterization and Cardio[facility] but it seems like that was never performed. Patient states she had insurance issues. Any case, she states she feels okay. She describes some fatigue/possible exertion with activity but not clear if she is describing true shortness of breath. Otherwise, she does have obstructive sleep apnea but not using CPAP. No clear exertional chest pains. Otherwise, getting along okay. [facility] Medical History Chronic diastolic (congestive) heart failure Anal fistula Sinus complaint Sterilization Kidney stone Acute appendicitis Vesicular dermatitis Enlarged lymph node Acute bacterial tonsillitis History of claustrophobia History of anxiety Hx of tendinitis Hx of bursitis History of knee problem Hx of chronic arthritis Family history of heart murmur History of asthma Surgical History H/O bilateral mastectomy History of kidney surgery Hx of tubal ligation Hx of tonsillectomy Hx of breast surgery Hx of appendectomy Hx of cholecystectomy Hx of knee surgery History of Achilles tendon repair Family History Mother Accelerated hypertension Arthritis Cancer of stomach Father Arthritis Sister No problems noted. Sister Arthritis Accelerated hypertension Sister No problems noted. Sister No problems noted. Brother Overdose Brother HIV disease Son Asthma Son No problems noted. Son No problems noted. Son No problems noted. Daughter No problems noted. Social History Housing: Apartment Alcohol intake: former Patient Tobacco Use Status: Former Tobacco user Tobacco use type: Cigarette Cigarettes Per Day: 1 Years Smoked: 30 e-Cigarette/Vaping Use: Never Used service: No Current occupational status: unemployed Cognitive needs: Yes Hearing needs: No Vision needs: Yes Female Reproductive History Menstrual Age of Menarche: 14 Review of Systems Const Denies weakness ENT Denies dizziness Card Denies chest pain, Denies chest pain with activity, Denies syncope, Denies rapid heart rate, Denies pedal edema, Denies edema, Denies leg edema, Denies lightheadedness, Denies palpitations, Denies dyspnea, Denies dyspnea on exertion and Denies orthopnea Resp Denies cough, Denies dyspnea and Denies dyspnea on exertion GI Denies hematochezia and Denies change in stool character Musc Denies abnormal gait, Denies muscle cramps, Denies muscle weakness, Denies numbness, Denies radiating pain into limb and Denies tingling Neuro Denies abnormal gait, Denies dizziness, Denies syncope, Denies numbness, Denies tingling and Denies weakness Endo Denies palpitations Physical Exam Vital Signs: Last Vital Signs Pulse 78 09/28/24 12:44 BP 138/80 09/28/24 12:44 BMI result Body Mass Index 55.7 Const General: comfortable and no acute distress Orientation/consciousness: patient oriented x3 HEENT Other: Unremarkable Head: Yes normal to inspection Neck Neck: Yes normal visual inspection Chest Chest palpation & inspection: normal inspection of the chest Resp Auscultation: clear to auscultation bilaterally Cardio Palpation: normal PMI Heart sounds: S1 normal heart sound present, S2 normal heart sound present, no gallops, no murmurs and no rubs GI Palpation (GI): Soft to palpation Back/Spine/Pelvis Other: unremarkable Skin General skin exam: no rashes or lesions noted Neuro General: patient oriented x3 Extrem General: Yes normal to inspection Psych Mental Status: mental status grossly normal Assessment & Plan Assessment & Plan (1) Chronic diastolic (congestive) heart failure: Code(s): I50.32 - Chronic diastolic (congestive) heart failure Category: Medical (2) Morbid obesity due to excess calories: Code(s): E66.01 - Morbid (severe) obesity due to excess calories Category: Medical Plan Recent EKG with underlying sinus rhythm at 62/Min; no significant ST-T changes and otherwise unremarkable. Normal IN and corrected QT. Labs showed normal cardiac BNP of 15. High sensitivity troponin normal. In a chest CT scan, cardiac findings or-normal heart size and no pericardial effusion. Normal caliber pulmonary arteries which suggest against pulmonary hypertension. Mild aortic arch calcification. No coronary artery calcifications. In the echocardiogram, LVEF 61%. Normal diastolic function. Otherwise unremarkable. Overall, suspect mostly right heart dysfunction related to obesity and less likely left heart diastolic dysfunction. It does not seem that she actually underwent they ischemic workup as planned although there is mention of left/right heart catheterization in last cardiac notes from Jennifer. Hence we can do a coronary CTA. Otherwise, she remains on diuretics. Weight loss as much able and it seems that she also goes to bariatric. Orders: Orders Basic Metabolic Panel Today I25.10 - Atherosclerotic heart disease of [place] coronary artery without angina pectoris CT Cardiac Coronary Angio Today I25.10 - Atherosclerotic heart disease of [place] coronary artery without angina pectoris Coding Level of Care Code Est Pt Level 4 (72856) Diagnoses Chronic diastolic (congestive) heart failure I50.32 Morbid obesity due to excess calories E66.01
== END 2024-09-28 13:51 | disposition home or self-care (01) ==
PROVIDERS: Visit Provider Internal Medicine
DX: I50.32 Chronic diastolic (congestive) heart failure (principal); E66.01 Morbid (severe) obesity due to excess calories
CPT/HCPCS: 99214

== ENCOUNTER → 2024-09-28 12:34 | Outpatient (BNVA) | payer OTHER, SELFPAY | PROVIDERS: Visit Provider Internal Medicine | DX: Z01.810 Encounter for preprocedural cardiovascular examination (principal); I11.0 Hypertensive heart disease with heart failure; I50.32 Chronic diastolic (congestive) heart failure; E66.01 Morbid (severe) obesity due to excess calories; Z68.43 Body mass index [BMI] 50.0-59.9, adult | CPT/HCPCS: 99212 ==

== ENCOUNTER 2024-09-29 15:56 | Outpatient (AMB) | payer OTHER, SELFPAY ==
[2024-09-29 15:57] VITALS: BP 148/82; PULSE 66; O2SAT 95; BMI 55.8
--- NOTE | 2024-09-29 15:57 | MHC.PC.OV ---
Vital Signs 09/29/24 15:57 09/29/24 16:31 Height 5 ft 9 in Weight 378 lb BMI 55.8 BP 148/82 H 128/76 Blood Pressure Location Lt radial Lt radial Position Sitting Sitting Pulse 66 Pulse Source Pulse Oximeter Pulse Oximetry (%) 95 Oxygen Delivery Method Room Air Intake Visit Reasons: B/P Allergies Seasonal Allergies Allergy (Severe, Verified 09/29/24 16:02) Sneezing latex [Latex] Allergy (Unknown, Verified 09/29/24 16:02) ITCHY, RASH , AND FUNGUS acetaminophen Allergy (Verified 09/29/24 16:02) Dizziness oxycodone Allergy (Verified 09/29/24 16:02) Rash Opioids - Morphine Analogues Adverse Reaction (Severe, Verified 09/29/24 16:02) Shortness of Breath Medication List - Last Reconciled 09/29/24 by Kirstin Reyes PA-C albuterol sulfate 90 mcg/actuation (Proventil HFA) 2 puffs inhalation Q6H PRN benzonatate 100 mg PO TID PRN cholecalciferol (vitamin D3) (Vitamin D3) 50 mcg (2 x 25 mcg (1,000 unit)) PO DAILY dicyclomine 20 mg PO TID docusate sodium (Colace) 100 mg PO BID 90 days fexofenadine 180 mg PO DAILY furosemide 60 mg (1.5 x 40 mg) PO DAILY ibuprofen 800 mg PO TID lidocaine 5% 1 patch topical DAILY mecobalamin (vitamin B12) 1,000 mcg subcut .once a week omeprazole 20 mg PO DAILY semaglutide (weight loss) (Wegovy) 0.25 mg (0.5 mL) subcut QWEEK sennosides (senna) 8.6 mg PO BEDTIME PRN Shower Chair As directed sucralfate (Carafate) 1 g PO BID PRN thiamine HCl (vitamin B1) 100 mg PO DAILY 90 days vitamin A palmitate 20,000 units PO DAILY 30 days Tobacco use date assessed: 06/17/24 Dental Screening Dental Screen Date: 06/17/24 HPI B/P HPI Details 54-year-old female with past medical history of obstructive sleep apnea, adjustment disorder, chronic heart failure last seen June 2024 coming in for follow up. In review of the notes patient [place] [facility] [place]/[address] angio. She has been [place] [facility] [place] She is also scheduled for carpal tunnel release 10/19/2024. conditioner tumbler [id number] used for the duration of this visit. Patient states on Saturday she had a headache and was feeling very thirsty and dizzy which lasted for about 10 minutes before resolving spontaneously. She also mentioned that when she sits for long periods of time she will have pain in the left hip and leg swelling. She notices her blood pressure will go up when she walks but then we will returned back to normal. She also mentioned she has left ear pain for the last several days. [facility] Medical History Chronic diastolic (congestive) heart failure Anal fistula Sinus complaint Sterilization Kidney stone Acute appendicitis Vesicular dermatitis Enlarged lymph node Acute bacterial tonsillitis History of claustrophobia History of anxiety Hx of tendinitis Hx of bursitis History of knee problem Hx of chronic arthritis Family history of heart murmur History of asthma Surgical History H/O bilateral mastectomy History of kidney surgery Hx of tubal ligation Hx of tonsillectomy Hx of breast surgery Hx of appendectomy Hx of cholecystectomy Hx of knee surgery History of Achilles tendon repair Family History Mother Accelerated hypertension Arthritis Cancer of stomach Father Arthritis Sister No problems noted. Sister Arthritis Accelerated hypertension Sister No problems noted. Sister No problems noted. Brother Overdose Brother HIV disease Son Asthma Son No problems noted. Son No problems noted. Son No problems noted. Daughter No problems noted. Social History Housing: Apartment Alcohol intake: former Patient Tobacco Use Status: Former Tobacco user Tobacco use type: Cigarette Cigarettes Per Day: 1 Years Smoked: 30 e-Cigarette/Vaping Use: Never Used service: No Current occupational status: unemployed Cognitive needs: Yes Hearing needs: No Vision needs: Yes Female Reproductive History Menstrual Age of Menarche: 14 Questionnaire Thrive Questionnaire Date Thrive assessed: 07/20/24 I am a: Patient What is your living situation today?: I have a steady place to live Within the past 12 months, did the food you bought not last and you didn't have the money to get more?: Often true Within the past 12 months, did you worry whether your food would run out before you got money to buy more?: Often true Do you have trouble paying for medicines?: No Do you have trouble getting transportation to medical appointments?: No Do you have trouble paying your heating and electricity bill?: Yes Do you have trouble taking care of your child, family member or friend?: No Do you have trouble with day-to-day activities such as bathing, preparing meals, shopping, managing finances, etc.?: Yes Are you currently unemployed and looking for a job?: Yes Are you interested in more education?: Yes Please select the resources that you would like help with: Utilities Currently or been in a relationship where the following occur: No concerns reported THRIVE Score: 3 AUDIT C Alcohol Use Questionnaire (AUDIT-C) 1. How often do you have a drink containing alcohol?: Never Total Score: 0 DANDY-7 AMB Questionnaire DANDY-7 Date DANDY - 7 assessed: 06/17/24 Source: Developed by Drs. Gonzalez Merida, Jenn Kramer, Matthew Jimenez and colleagues, with an educational honorio from [employer]. Review of Systems Const Denies body aches, Denies chills, Denies fever(s), Denies headache(s) and Denies poor appetite Eyes Reports no additional complaints ENT Denies dysphagia, Denies dizziness, Reports otalgia, Denies headache(s) and Denies odynophagia Card Denies chest pain, Denies syncope, Denies edema, Denies irregular heart rhythm, Denies lightheadedness and Denies dyspnea Resp Denies cough and Denies dyspnea GI Denies abdominal pain, Denies constipation, Denies dysphagia, Denies diarrhea, Denies nausea, Denies odynophagia and Denies vomiting Reports no additional complaints Musc Details: Left hip pain Reports no additional complaints and Denies abnormal gait Skin/Breast Reports system reviewed and no additional complaints, except as documented Neuro Denies abnormal gait, Denies dizziness, Denies syncope and Denies headache(s) Psych Reports no additional complaints Physical exam (Primary Care) Vital Signs: Last Vital Signs Pulse 66 09/29/24 15:57 BP 128/76 09/29/24 16:31 Pulse Ox 95 09/29/24 15:57 Oxygen Delivery Method Room Air 09/29/24 15:57 BMI result Body Mass Index 55.8 Tobacco/Smoking Status: Tobacco use Status Tobacco use date assessed 06/17/24 09/29/24 16:00 Patient Tobacco Use Status Former Tobacco user 09/29/24 16:00 Tobacco use type Cigarette 09/29/24 16:00 e-Cigarette/Vaping Use Never Used 09/29/24 16:00 Thrive Assessment: Date of Thrive Assessment Date Thrive assessed 07/20/24 09/29/24 16:00 Currently or been in a relationship where the following occur: No concerns reported Const General: cooperative, healthy appearing, comfortable and no acute distress Orientation/consciousness: patient oriented x3 HENMT Head: Yes normocephalic Ears: hearing grossly normal bilaterally, TM normal on the right, EAC's normal and TM abnormal bulging on the left and erythematous on the left General nose exam: Normal external nose present Eyes General: appearance normal, both eyes and all related structures Conjunctivae: conjunctivae normal Neck Neck: Yes full ROM and Yes no lymphadenopathy Resp Effort & Inspection: normal respiratory effort Auscultation: clear to auscultation bilaterally, no crackles, no rales, no rhonchi and no wheezes Cardio Rate: regular rate Rhythm: regular rhythm Skin General skin exam: no rashes or lesions noted Neuro General: patient oriented x3 Gait exam (Neuro): Normal gait present Extrem General: Yes normal to inspection, Yes full ROM and No edema Psych Affect: normal affect Attitude: cooperative Insight: Good insight present (Psych) Judgement: Good judgement present (Psych) Coding Level of Care Code Est Pt Level 4 (14421) Diagnoses Elevated TSH R79.89 Left hip pain M25.552 Morbid obesity due to excess calories E66.01 Otitis media H66.90 Assessment & Plan Assessment & Plan (1) Elevated TSH: Code(s): R79.89 - Other specified abnormal findings of blood chemistry Category: Medical Plan: TSH elevated on last blood work we will order for repeat thyroid testing. (2) Left hip pain: Code(s): M25.552 - Pain in left hip Category: Medical Plan: Patient has left hip pain while sitting x-ray was taken but has not been read yet we will reach out to Radiology. (3) Morbid obesity due to excess calories: Code(s): E66.01 - Morbid (severe) obesity due to excess calories Category: Medical Plan: Healthy diet and regular exercise is encouraged. Continue on Wegovy injection (4) Otitis media: Code(s): H66.90 - Otitis media, unspecified, unspecified ear Category: Medical Plan: Patient found to have acute otitis media of the left ear with bulging erythematous TM. We will treat with amoxicillin b.i.d. for 7 days. Advised patient to monitor her symptoms and reach out to the office if they do not improve. Plan This note was constructed using voice recognition software. While every effort has been made to ensure accuracy and tar roofer, still areas may have been included sometimes these areas may affect the content or meeting of the given symptoms. Total time spent caring for the patient today was 20 minutes. This includes time spent before the visit reviewing the chart, time spent during the visit, and time spent after the visit and documentation. Orders: Orders Free T4 (Free Thyroxine) 09/29/24 R79.89 - Other specified abnormal findings of blood chemistry TSH reflex Free T4 09/29/24 R79.89 - Other specified abnormal findings of blood chemistry Medications: New amoxicillin 875 mg PO BID 14 tabs 0RF
[2024-09-29 16:31] VITALS: BP 128/76
== END 2024-09-29 16:50 | disposition home or self-care (01) ==
DX: M25.552 Pain in left hip (principal); E66.01 Morbid (severe) obesity due to excess calories; H66.92 Otitis media, unspecified, left ear; Z68.43 Body mass index [BMI] 50.0-59.9, adult; R79.89 Other specified abnormal findings of blood chemistry

== ENCOUNTER → 2024-09-29 15:56 | Outpatient (BNVA) | payer OTHER, SELFPAY | DX: R79.89 Other specified abnormal findings of blood chemistry (principal); M25.552 Pain in left hip; E66.01 Morbid (severe) obesity due to excess calories; H66.90 Otitis media, unspecified, unspecified ear | CPT/HCPCS: 99212 ==

== ENCOUNTER 2024-10-19 10:53 | Day surgery (SDC) | payer OTHER, SELFPAY ==
[2024-10-19 11:02] VITALS: BP 148/53; PULSE 74; RESP 18; TEMP 36.2; O2SAT 98
[2024-10-19 11:10] VITALS: BMI 54.8
--- NOTE | 2024-10-19 12:36 | MHC.SHP ---
Pre-Procedural Eval Section A - 24 Hr Update-Section A only Date of Service: 10/19/24 The patient is an INPATIENT: No Changes since office visit: No Cold of Flu in the past 2 weeks, No New Medical Problems, No Changes in Medication and No Patient answered all questions The patient has been examined within 24 hours of the surgical procedure. The History & Physical has been completed within 30 days and I have reviewed it.: Yes Section B - Complete if H&P > 30 days Chief Complaint: Carpal tunnel syndrome, right upper limb Allergies: Allergies Allergy/AdvReac Type Severity Reaction Status Date / Time morphine Allergy Severe Shortness Verified 10/19/24 12:09 of Breath Seasonal Allergies Allergy Severe Sneezing Verified 10/19/24 11:07 acetaminophen [From Percocet] Allergy Intermediate Rash Verified 10/19/24 12:10 latex [Latex] Allergy Intermediate ITCHY, Verified 10/19/24 12:09 RASH , AND FUNGUS oxycodone Allergy Intermediate Rash Verified 10/19/24 12:10 Plan Diagnosis/Plan: Unchanged I have reviewed the history and physical and performed a pertinent physical examination on my patient. No changes have occurred unless specified. Time Spent With Patient Time: Total time managing care of this patient today ____ minutes.
--- NOTE | 2024-10-19 12:37 | W.PM.OPN ---
Operative Note Operative Note Date of Service: 10/19/24 Narrative: Preop diagnosis: 1. Right Carpal tunnel syndrome Postop diagnosis: same Procedure: 1. Right Carpal tunnel release Surgeon: Renay Rodriguez MD Internal Review And Audit Compliance: None Anesthesia: local block using 1% lidocaine with epinephrine Findings: Thickened transverse carpal ligament. EBL: Less than 5 mL Specimens: None Complications: None Disposition: Brought to recovery room in stable condition Plan: Follow-up for 10-14 days for wound check and suture removal Indications: The patient is 54 years old, with right carpal tunnel syndrome that has been unresponsive to nonoperative management. The risks and benefits of operative treatment including but not limited to risk of damage to blood vessels, nerves, tendons, infection, persistent pain, persistent symptoms, or possible need for additional surgery were discussed with the patient and the patient wishes to proceed with surgery. Procedure: Once consent was obtained a local block was performed using a combination of 1% lidocaine with epinephrine. The patient was then brought back to the operating suite and placed on the operative table in supine position. The right upper extremity was prepped and draped in a standard surgical fashion. Once assured that we had a good block, a 2.0 cm longitudinal incision was made centered over the carpal tunnel. The incision was made through the skin to the subcutaneous tissues using a #15 blade. Dissection was made down to the level of the transverse carpal ligament with care being taken to protect the palmar cutaneous nerve. Once the transverse carpal ligament was clearly visualized, a longitudinal incision was made in the transverse carpal ligament 1st using a #15 blade, then using tenotomy scissors under direct visualization. Care was taken to look for and protect the motor branch of the median nerve when seen in this area. Once satisfied with our carpal tunnel release the wound was copiously irrigated with normal saline and hemostasis was obtained with a brief period of local pressure. The skin edges were reapproximated with some 5.0 nylon suture material and a sterile dressing was applied. The patient appears to have tolerated the procedure well and with no complications. All digits were well vascularized at the conclusion of the case.
[2024-10-19 13:33] VITALS: BP 133/64; PULSE 64; O2SAT 95
== END 2024-10-19 13:31 | disposition home or self-care (01) ==
PROVIDERS: Visit Provider Orthopaedic Surgery
PROC: (CPT 64721; principal; 2024-10-19 12:10)
DX: G56.01 Carpal tunnel syndrome, right upper limb (principal); R20.0 Anesthesia of skin; R20.2 Paresthesia of skin; I50.32 Chronic diastolic (congestive) heart failure; J45.909 Unspecified asthma, uncomplicated; Z91.040 Latex allergy status; Z88.5 Allergy status to narcotic agent; Z88.8 Allergy status to other drugs, medicaments and biological substances; Z98.890 Other specified postprocedural states; Z87.891 Personal history of nicotine dependence; Z56.0 Unemployment, unspecified
CPT/HCPCS: 64721; J0171; J2003; J2004

== ENCOUNTER → 2024-10-19 10:53 | Outpatient (BNV) | payer OTHER, SELFPAY | PROVIDERS: Visit Provider Orthopaedic Surgery | DX: G56.01 Carpal tunnel syndrome, right upper limb (principal) | CPT/HCPCS: 64721 ==

== ENCOUNTER 2024-10-23 09:11 | Outpatient (AMB) | payer OTHER, SELFPAY ==
--- NOTE | 2024-10-23 09:20 | MHC.OFFVISWM ---
VS Expanded 10/23/24 09:27 BP 164/84 H Blood Pressure Location Lt radial Blood Pressure Position Sitting Pulse 66 Pulse Source Pulse Oximeter Temp 98.1 F Temperature Source Temporal Artery Scan Pulse Oximetry 99 Oxygen Delivery Method Room Air Height 5 ft 9 in Weight 375 lb 3.2 oz BMI 55.4 Intake Visit Reasons: (OV) F/U SWL Housekeeper And Laundry Assistant Required: Yes Housekeeper And Laundry Assistant Services: Housekeeper And Laundry Assistant Present Housekeeper And Laundry Assistant Name: Hospital cmi Allergies morphine Allergy (Severe, Verified 10/23/24 09:28) Shortness of Breath Seasonal Allergies Allergy (Severe, Verified 10/23/24 09:28) Sneezing acetaminophen [From Percocet] Allergy (Intermediate, Verified 10/23/24 09:28) Rash latex [Latex] Allergy (Intermediate, Verified 10/23/24 09:28) ITCHY, RASH , AND FUNGUS oxycodone Allergy (Intermediate, Verified 10/23/24 09:28) Rash Medication List - Last Reconciled 10/23/24 by NICCI Hannah albuterol sulfate 90 mcg/actuation (Proventil HFA) 2 puffs inhalation Q6H PRN amoxicillin 875 mg PO BID benzonatate 100 mg PO TID PRN cholecalciferol (vitamin D3) (Vitamin D3) 50 mcg (2 x 25 mcg (1,000 unit)) PO DAILY dicyclomine 20 mg PO TID docusate sodium (Colace) 100 mg PO BID 90 days fexofenadine 180 mg PO DAILY furosemide 60 mg (1.5 x 40 mg) PO DAILY hydrocodone-acetaminophen 5-325 mg 1 tab PO Q4-6H PRN ibuprofen 800 mg PO TID lidocaine 5% 1 patch topical DAILY mecobalamin (vitamin B12) 1,000 mcg subcut .once a week omeprazole 20 mg PO DAILY semaglutide (weight loss) (Wegovy) 0.5 mg (0.5 mL) subcut QWEEK sennosides (senna) 8.6 mg PO BEDTIME PRN Shower Chair As directed sucralfate (Carafate) 1 g PO BID PRN thiamine HCl (vitamin B1) 100 mg PO DAILY 90 days vitamin A palmitate 20,000 units PO DAILY 30 days HPI Comments Details: 54-year-old female who presents to the office today in follow-up for surgical weight loss. She was initially seen on 07/10/2024 with a weight of 381 lb. Weight today is 375.2 lb with a BMI of 55.4. This corresponds to a 5.8 lb weight loss or 1.5% total body weight loss. Since last visit approximately a month ago, she was seen by her primary care physician regarding elevated TSH, repeat testing was requested. She was seen by Cardiology and CT angio of the heart was ordered and is scheduled on 12/09/24. She states she is having some trouble following the lucila. 09/23 f/u with ortho for hip pain with schedule for fluoroscopy guided left GTB injection and left lumbar trigger point injections with local anesthetic. She had right carpal tunnel surgery on 10/19/2024. Meal plan: 5 Orgain 2 scoops in 8 oz water meal with 13 forks protein and veg drinking plenty of water 8-10 bottles Exercise plan: just doing upper body. walking outside, not tracking calories. [facility] Medical History (Updated 10/23/24 @ 10:04 by NICCI Hannah) Chronic diastolic (congestive) heart failure Anal fistula Sinus complaint Sterilization Kidney stone Acute appendicitis Vesicular dermatitis Enlarged lymph node Acute bacterial tonsillitis History of claustrophobia History of anxiety Hx of tendinitis Hx of bursitis History of knee problem Hx of chronic arthritis Family history of heart murmur History of asthma Surgical History (Updated 10/23/24 @ 09:31 by Sabina Sears CMA) Hx of carpal tunnel repair H/O bilateral mastectomy History of kidney surgery Hx of tubal ligation Hx of tonsillectomy Hx of breast surgery Hx of appendectomy Hx of cholecystectomy Hx of knee surgery History of Achilles tendon repair Family History Mother Accelerated hypertension Arthritis Cancer of stomach Father Arthritis Sister No problems noted. Sister Arthritis Accelerated hypertension Sister No problems noted. Sister No problems noted. Brother Overdose Brother HIV disease Son Asthma Son No problems noted. Son No problems noted. Son No problems noted. Daughter No problems noted. Social History Housing: Apartment Alcohol intake: former Patient Tobacco Use Status: Former Tobacco user Tobacco use type: Cigarette Cigarettes Per Day: 1 Years Smoked: 30 e-Cigarette/Vaping Use: Never Used service: No Current occupational status: unemployed Cognitive needs: Yes Hearing needs: No Vision needs: Yes Female Reproductive History Menstrual Age of Menarche: 14 Physical Exam Vital Signs: Last Vital Signs Temp 98.1 F 10/23/24 09:27 Pulse 66 10/23/24 09:27 BP 164/84 H 10/23/24 09:27 Pulse Ox 99 10/23/24 09:27 Oxygen Delivery Method Room Air 10/23/24 09:27 BMI result Body Mass Index 55.4 Const General: healthy appearing and no acute distress Resp Effort & Inspection: normal respiratory effort Auscultation: clear to auscultation bilaterally Cardio Rate: regular rate Rhythm: regular rhythm GI Auscultation: normal bowel sounds Extrem Other: Postop dressing to the right wrist Assessment & Plan Assessment & Plan (1) Morbid obesity: Code(s): E66.01 - Morbid (severe) obesity due to excess calories Category: Medical Plan: Discussed the importance of following the lucila exactly. Discussed the option of transitioning to Premier protein or pure protein ready to drink shakes for ease. Additionally discussed the importance of exercise. Identified 5 lb weight loss in 3 months. She states she is going to try harder. Encouraged to text weights weekly and with any questions or concerns. She has not been doing this. Discussed the importance of communication and how it directly impacts her outcome. She is in agreement with the plan. Have her return to the office in 1 month
[2024-10-23 09:27] VITALS: BP 164/84; PULSE 66; TEMP 36.7; O2SAT 99; BMI 55.4
== END 2024-10-23 10:05 | disposition home or self-care (01) ==
PROVIDERS: Visit Provider Physician Assistant Surgical
DX: E66.813 Obesity, class 3 (principal); Z68.43 Body mass index [BMI] 50.0-59.9, adult
CPT/HCPCS: 99213; G2211

== ENCOUNTER → 2024-10-23 09:11 | Outpatient (BNVA) | payer OTHER, SELFPAY | PROVIDERS: Visit Provider Physician Assistant Surgical | DX: E66.01 Morbid (severe) obesity due to excess calories (principal); Z71.3 Dietary counseling and surveillance; Z68.43 Body mass index [BMI] 50.0-59.9, adult | CPT/HCPCS: 99212 ==

== ENCOUNTER 2024-11-02 | Outpatient (REF) | payer OTHER, SELFPAY | END 2024-11-02 00:01 | disposition home or self-care (01) | LOC: CF | PROVIDERS: Visit Provider Advanced Practice Midwife | DX: G56.03 Carpal tunnel syndrome, bilateral upper limbs (principal) | CPT/HCPCS: 99212 ==

== ENCOUNTER 2024-11-02 08:37 | Outpatient (AMB) | payer OTHER, SELFPAY ==
--- NOTE | 2024-11-02 08:47 | MHC.OFFVIS ---
Vital Signs 11/02/24 08:48 Height 5 ft 9 in Weight 375 lb BMI 55.4 Handedness Right Intake Visit Reasons: PO-Rt CTR 10/19/24 Intake Note: Ladonna is a 54 year old right hand dominant female who presents today for her post operative visit s/p right carpal tunnel release DOS: 10/19/24 w/ Dr Rodriguez. Patient reports she is no longer having numbness and tingling. She expresses she had discomfort at her incision site but it is slowly getting better. Sutures removed and steri strips applied. Vending Machine Operator Required: Yes Vending Machine Operator Language: Finishing Machine Operator Name: [id number] Allergies morphine Allergy (Severe, Verified 11/02/24 08:48) Shortness of Breath Seasonal Allergies Allergy (Severe, Verified 11/02/24 08:48) Sneezing acetaminophen [From Percocet] Allergy (Intermediate, Verified 11/02/24 08:48) Rash latex [Latex] Allergy (Intermediate, Verified 11/02/24 08:48) ITCHY, RASH , AND FUNGUS oxycodone Allergy (Intermediate, Verified 11/02/24 08:48) Rash HPI HPI PO-Rt CTR 10/19/24: Details: Patient is a 54-year-old female who presents for postoperative evaluation status post right carpal tunnel release, DOS 10/19/2024. Patient reports that she is feeling very well postoperatively, and experiences no further numbness or tingling of the right hand. Patient reports that she is still having some pace in the center of the right hand, and then she very occasionally feels that this is the same pain that she experienced when we were injecting the local anesthetic prior to surgery. Patient states she would like to get signed for left-sided surgery at time. No other acute complaints or concerns at this time. [facility] Medical History (Updated 10/27/24 @ 09:50 by Kirstin Reyes PA-C) Chronic diastolic (congestive) heart failure Anal fistula Sinus complaint Sterilization Kidney stone Acute appendicitis Vesicular dermatitis Enlarged lymph node Acute bacterial tonsillitis History of claustrophobia History of anxiety Hx of tendinitis Hx of bursitis History of knee problem Hx of chronic arthritis Family history of heart murmur History of asthma Surgical History (Updated 10/23/24 @ 09:31 by Sabina Sears CMA) Hx of carpal tunnel repair H/O bilateral mastectomy History of kidney surgery Hx of tubal ligation Hx of tonsillectomy Hx of breast surgery Hx of appendectomy Hx of cholecystectomy Hx of knee surgery History of Achilles tendon repair Family History Mother Accelerated hypertension Arthritis Cancer of stomach Father Arthritis Sister No problems noted. Sister Arthritis Accelerated hypertension Sister No problems noted. Sister No problems noted. Brother Overdose Brother HIV disease Son Asthma Son No problems noted. Son No problems noted. Son No problems noted. Daughter No problems noted. Social History Housing: Apartment Alcohol intake: former Patient Tobacco Use Status: Former Tobacco user Tobacco use type: Cigarette Cigarettes Per Day: 1 Years Smoked: 30 e-Cigarette/Vaping Use: Never Used service: No Current occupational status: unemployed Cognitive needs: Yes Hearing needs: No Vision needs: Yes Female Reproductive History Menstrual Age of Menarche: 14 Review of Systems Const All systems reviewed & are unremarkable except as noted in HPI and below Physical Exam Vital Signs: BMI result Body Mass Index 55.4 Extrem Other: Patient is alert, oriented, and in no acute distress. Neuro: Patient reports diminished sensation in the median nerve distribution of left hand Normal sensation of the tips of all digits of the right hand Normal sensation of the ulnar nerve distribution of left hand Vascular: Cap refill brisk Pain: Patient reports no tenderness to palpation at this time ROM: Patient is able to make a closed fist bilaterally Good finger cross Good APB muscle belly firing bilaterally Skin: Well approximated and well healing incision site noted on the volar right wrist No evidence of infection General: No ecchymosis, erythema, or evidence of infection. Psych: Appears grossly normal Affect normal Attitude cooperative Results Reviewed Results Reviewed: IMPRESSION: 1. This is an abnormal study. 2. 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 3. There is no electrodiagnostic evidence for ulnar neuropathy, brachial plexopathy, or cervical radiculopathy. Thank you for your kind referral. Angelica Jaimes MD, JOSELITO 07/31/24 Assessment & Plan Assessment & Plan (1) Carpal tunnel syndrome, bilateral: Code(s): G56.03 - Carpal tunnel syndrome, bilateral upper limbs Category: Medical Plan 1. carpal tunnel syndrome, right, status post carpal tunnel release DOS 10/19/2024 Patient appears to be recovering well postoperatively Patient is educated about the typical recovery course At this time, patient is informed that she will require no acute scheduled follow-up with us for this surgery, as she appears to be recovering very well Patient was amenable to this plan 2. Carpal tunnel syndrome, left Symptoms constant, daily, worse at night I educated the patient about the condition. I discussed both operative and nonoperative treatment options. The patient would like to proceed with surgery. The risks and benefits of operative treatment were discussed with the patient and the patient wishes to proceed with surgery. These risks include, but are not limited to, risk of damage to blood vessels, nerves, tendons, infection, recurrence, incomplete relief of preoperative symptoms, persistent pain, possible need for further surgery, and the risks associated with regional blocks and/or anesthesia. Plan is to take the patient to the operating room at some point in the next few weeks for the following procedures: 1. Left carpal tunnel release under local anesthesia All of the preoperative paperwork including the consent was discussed today. All of the patient's questions were answered in the clinic today. The patient understands that they will be in contact with our neurosurgical nurse to discuss scheduling their procedure. Patient denies diabetes, blood thinners, asthma, heart issues, lung issues, kidney issues, or current smoking. Coding Level of Care Code Est Pt Level 4 (90831) Diagnoses Carpal tunnel syndrome, bilateral G56.03
[2024-11-02 08:48] VITALS: BMI 55.4
== END 2024-11-02 09:22 | disposition home or self-care (01) ==
DX: G56.03 Carpal tunnel syndrome, bilateral upper limbs (principal)
CPT/HCPCS: 99214

== ENCOUNTER 2024-11-24 14:43 | Outpatient (AMB) | payer OTHER, SELFPAY ==
--- NOTE | 2024-11-24 14:48 | A.OFFPC_ITS ---
Vital Signs 3 11/24/24 14:54 Height 5 ft 9 in Weight 382 lb 6 oz BMI 56.5 BP 136/74 Blood Pressure Location Lt brachial Position Sitting Pulse 77 Pulse Source Pulse Oximeter Temp 97.1 F Temp Source Skin Pulse Oximetry (%) 96 Oxygen Delivery Method Room Air Intake Visit Reasons: A marble-sized mass under the left breast Intake Note: Patient is here to follow up on marble sized mass under left breast. Membership Correspondent Required: Yes Membership Correspondent Language: Social Work Program Coordinator Name: Michaela [id number] Information Interpreted: non-clinical & clinical Pattern Setter: Not Required per policy Accompanied by: Self / Same As Patient Allergies morphine Allergy (Severe, Verified 11/24/24 14:54) Shortness of Breath Seasonal Allergies Allergy (Severe, Verified 11/24/24 14:54) Sneezing acetaminophen [From Percocet] Allergy (Intermediate, Verified 11/24/24 14:54) Rash latex [Latex] Allergy (Intermediate, Verified 11/24/24 14:54) ITCHY, RASH , AND FUNGUS oxycodone Allergy (Intermediate, Verified 11/24/24 14:54) Rash Medication List - Last Reconciled 11/24/24 by Kirstin Reyes PA-C albuterol sulfate 90 mcg/actuation (Proventil HFA) 2 puffs inhalation Q6H PRN benzonatate 100 mg PO TID PRN cholecalciferol (vitamin D3) (Vitamin D3) 50 mcg (2 x 25 mcg (1,000 unit)) PO DAILY dicyclomine 20 mg PO TID docusate sodium (Colace) 100 mg PO BID 90 days fexofenadine 180 mg PO DAILY furosemide 60 mg (1.5 x 40 mg) PO DAILY hydrocodone-acetaminophen 5-325 mg 1 tab PO Q4-6H PRN ibuprofen 800 mg PO TID lidocaine 5% 1 patch topical DAILY mecobalamin (vitamin B12) 1,000 mcg subcut .once a week omeprazole 20 mg PO DAILY semaglutide (weight loss) (Wegovy) 0.5 mg (0.5 mL) subcut QWEEK semaglutide (weight loss) (Wegovy) 1 mg (0.5 mL) subcut Q7D sennosides (senna) 8.6 mg PO BEDTIME PRN Shower Chair As directed sucralfate (Carafate) 1 g PO BID PRN thiamine HCl (vitamin B1) 100 mg PO DAILY 90 days vitamin A palmitate 20,000 units PO DAILY 30 days Tobacco use date assessed: 11/24/24 Dental Screening Dental Screen Date: 11/24/24 Did you have a dental visit in the last 12 months?: Yes Did you have a dental problem in the last 6 months where you did not have access to dental care?: No Was dental information given to patient?: Patient has dentist HPI A marble-sized mass under the left breast 2 HPI0 Details 54-year-old female with past medical his tory obstructive sleep apnea, adjustment disorder, chronic heart failure last seen 09/2024 coming in for acute problem.? In review of the notes, patient was seen by Orthopedics 10/2024 status post carpal tunnel release advised to have left carpal tunnel release completed. lang interpreter [id number] was used for the duration of this visit. Patient tells us today she found a lump under the left breast 2 days ago that is not painful and has not been growing. She has a history of a breast mass/cyst in the right breast that was removed. She is also complaining of left breast pain which has been ongoing for several years but has been worsening over the last few months. [facility] Medical History (Updated 11/24/24 @ 15:27 by Kirstin Reyes PA-C) Chronic diastolic (congestive) heart failure Anal fistula Sinus complaint Sterilization Kidney stone Acute appendicitis Vesicular dermatitis Enlarged lymph node Acute bacterial tonsillitis History of claustrophobia History of anxiety Hx of tendinitis Hx of bursitis History of knee problem Hx of chronic arthritis Family history of heart murmur History of asthma Surgical History (Updated 11/24/24 @ 15:02 by RITA Quan) History of hand surgery Hx of carpal tunnel repair H/O bilateral mastectomy History of kidney surgery Hx of tubal ligation Hx of tonsillectomy Hx of breast surgery Hx of appendectomy Hx of cholecystectomy Hx of knee surgery History of Achilles tendon repair Family History (Updated 11/24/24 @ 14:49 by RITA Quan) Mother Accelerated hypertension Arthritis Cancer of stomach Father Arthritis Sister No problems noted. Sister Arthritis Accelerated hypertension Sister No problems noted. Sister No problems noted. Brother Overdose Brother HIV disease Son Asthma Son No problems noted. Son No problems noted. Son No problems noted. Daughter No problems noted. Social History Housing: Apartment Alcohol intake: former Patient Tobacco Use Status: Former Tobacco user Tobacco use type: Cigarette Cigarettes Per Day: 1 Years Smoked: 30 Packs per year/per ci.50 e-Cigarette/Vaping Use: Never Used Second Hand Smoke Exposure: Yes service: No Current occupational status: unemployed Cognitive needs: Yes Hearing needs: No Vision needs: Yes Female Reproductive History Menstrual Age of Menarche: 14 Questionnaire PHQ-9 Over the last 2 weeks, how often have you been bothered by any of the following problems? 1. Little interest or pleasure in doing things: not at all 2. Feeling down, depressed, or hopeless: not at all 3. Trouble falling or staying asleep, or sleeping too much: not at all 4. Feeling tired or having little energy: not at all 5. Poor appetite or overeating: not at all 6. Feeling bad about yourself - or that you are a failure or have let yourself or your family down: not at all 7. Trouble concentrating on things, such as reading the newspaper or watching television: not at all 8. Moving or speaking so slowly that other people could have noticed. Or the opposite - being so fidgety or restless that you have been moving around a lot more than usual: not at all 9. Thoughts that you would be better off or of hurting yourself in some way: not at all Total score: 0 Depression Screening Interpretation: Negative Depression Screening Done: Yes Source: Developed by Drs. Gonzalez Merida, Jenn Kramer, Matthew Jimenez and colleagues, with an educational honorio from [employer]. Thrive Questionnaire Date Thrive assessed: 11/24/24 AUDIT C Alcohol Use Questionnaire (AUDIT-C) 1. How often do you have a drink containing alcohol?: Never Total Score: 0 DANDY-7 AMB Questionnaire DANDY-7 Date DANDY - 7 assessed: 11/24/24 Feeling nervous, anxious, or on edge: 0 = Not at all Not being able to stop or control worryin = Not at all Worrying too much about different things: 0 = Not at all Trouble relaxin = Not at all Being so restless that it is hard to sit still: 0 = Not at all Becoming easily annoyed or irritable: 0 = Not at all Feeling afraid as if something awful might happen: 0 = Not at all Total DANDY-7 score (0-4 normal; 5-9 mild; 10-14 moderate; 15-21 severe): 0 Source: Developed by Drs. Gonzalez Merida, Jenn Kramer, Matthew Jimenez and colleagues, with an educational honorio from [employer]. Review of Systems Const Denies body aches, Denies chills, Denies fever(s) and Denies poor appetite Eyes Reports no additional complaints Card Denies chest pain, Denies edema, Denies irregular heart rhythm, Reports leg edema and Denies dyspnea Resp Denies cough and Denies dyspnea GI Reports no additional complaints Reports no additional complaints Musc Reports no additional complaints and Denies abnormal gait Skin/Breast Reports system reviewed and no additional complaints, except as documented Neuro Denies abnormal gait Psych Reports no additional complaints Physical exam (Primary Care) Vital Signs: Last Vital Signs Temp 97.1 F 11/24/24 14:54 Pulse 77 11/24/24 14:54 BP 136/74 11/24/24 14:54 Pulse Ox 96 11/24/24 14:54 Oxygen Delivery Method Room Air 11/24/24 14:54 BMI result Body Mass Index 56.5 Tobacco/Smoking Status: Tobacco use Status Tobacco use date assessed 11/24/24 11/24/24 14:58 Patient Tobacco Use Status Former Tobacco user 11/24/24 14:49 Tobacco use type Cigarette 11/24/24 14:49 e-Cigarette/Vaping Use Never Used 11/24/24 14:49 PHQ-9: PHQ-9 Score PHQ-9: Total score 0 11/24/24 14:58 Depression Screening Interpretation: Negative Thrive Assessment: Date of Thrive Assessment Date Thrive assessed 11/24/24 11/24/24 14:49 Const General: cooperative, healthy appearing, comfortable and no acute distress Orientation/consciousness: patient oriented x3 HENMT Head: Yes normocephalic Ears: hearing grossly normal bilaterally General nose exam: Normal external nose present Eyes General: appearance normal, both eyes and all related structures Conjunctivae: conjunctivae normal Neck Neck: Yes full ROM and Yes no lymphadenopathy Chest Chest/axillae images: 2 1. Pain to palpation over this area 2. Soft, nontender mobile mass likely lymph node or lipoma Resp Effort & Inspection: normal respiratory effort Auscultation: clear to auscultation bilaterally, no crackles, no rales, no rhonchi and no wheezes Cardio Rate: regular rate Rhythm: regular rhythm Skin General skin exam: no rashes or lesions noted Neuro General: patient oriented x3 Gait exam (Neuro): Normal gait present Extrem General: Yes normal to inspection, Yes full ROM and No edema Psych Affect: normal affect Attitude: cooperative Insight: Good insight present (Psych) Judgement: Good judgement present (Psych) Coding Level of Care Code Est Pt Level 4 (13931) Diagnoses Enlarged lymph node R59.9 Breast pain, left N64.4 Chronic diastolic (congestive) heart failure I50.32 Assessment & Plan Assessment & Plan (1) Enlarged lymph node: Code(s): R59.9 - Enlarged lymph nodes, unspecified Category: Medical Plan: Patient has soft nontender palpable mass inferior to the left breast which she noticed 2 days ago. Likely a swollen lymph node however we will order ultrasound for further evaluation. Advised patient to monitor her symptoms and if becomes painful or growing to reach out to the office. (2) Breast pain, left: Code(s): N64.4 - Mastodynia Category: Medical Plan: Patient also complaining of left breast pain on exam no palpable masses of the left or right breast. She does have tenderness to palpation over the lateral aspect of the left breast into the axilla. Ordered for left breast ultrasound as well as left diagnostic mammogram for further evaluation. No skin dimpling, skin changes or nipple drainage. (3) Chronic diastolic (congestive) heart failure: Code(s): I50.32 - Chronic diastolic (congestive) heart failure Category: Medical Plan: Patient has been following with paleologist and has imaging in November with follow up in December. She was given furosemide by her last PCP for bilateral lower extremity swelling which was refilled today. Plan This note was constructed using voice recognition software. While every effort has been made to ensure accuracy and b2b outside sales representative, still areas may have been included sometimes these areas may affect the content or meeting of the given symptoms. Total time spent caring for the patient today was 30 minutes. This includes time spent before the visit reviewing the chart, time spent during the visit, and time spent after the visit and documentation. Orders: Orders 2 US breast LT complete Today N64.4 - Mastodynia MM tomosynthesis diagnostic LT Today N64.4 - Mastodynia US chest Today R59.9 - Enlarged lymph nodes, unspecified Medications: Refilled 2 furosemide 60 mg (1.5 x 40 mg) PO DAILY 135 tabs 1RF
[2024-11-24 14:54] VITALS: BP 136/74; PULSE 77; TEMP 36.2; O2SAT 96; BMI 56.5
--- OUTSIDE RECORDS SUMMARY | 2024-11-24 15:42 | XMS_ITS | Clinical Summary ---
Author Organization [employer] [facility] Address [address] [place] [address] Care Team Providers Care Certified Teacher Assistant Name Role Phone Unavailable Primary Care Provider Unavailabl e Social History Tobacco Use Types Packs/Day Years Used Date Smoking Tobacco: Never Assessed Comments Unknown Sex and Gender Information Value Date Recorded Sex Assigned at Female 05/18/2024 12:51 PM EDT Legal Sex Female 12:47 PM EDT Gender Identity Female 05/18/2024 12:51 PM EDT Sexual Orientation Straight 06/02/2024 1: 14 PM EDT Plan of Treatment Health Maintenance Due Date Last Done Comments CT Colonography 1972 Colonoscopy 1972 Colorectal Cancer Screening 1972 Depression Screening 1972 FIT DNA/Cologuard 1972 FIT 1972 FOBT 1972 HIV Screening 1972 SDOH Screening 1972 Sigmoidoscopy 1972 Alcohol/Substance Use Screening 1984 Tobacco Screening 1984 Family Planning (PISQ) 1987 Hepatitis C Screening 1990 DTaP/Tdap/Td Vaccines (1 - Tdap) 1991 Hepatitis B Vaccines (1 of 3 - 19+ 3-dose series) 1991 Pap Smear 1993 Cervical Cancer Screening 2002 HPV/Cotest 2002 Mammogram 2012 Zoster Vaccines (1 of 2) 2022 COVID-19 Vaccine ( - 2023-2 5 season) 2024 Influenza Vaccine (#1) 2024 RSV Patients and Pa tients Aged 60 years or older (1 - 1-dose 75+ series) 2047 HIB Vaccines Aged Out No longer eligi ble based on patient's age to complete this topic HPV Vaccines Aged Out No longer eligi ble based on patient's age to complete this topic Hepatitis A Vaccines Aged Out No long er eligible based on patient's age to complete this topic IPV Vaccines Aged Out No longer eligi ble based on patient's age to complete this topic Meningococcal Vaccine Aged Out No teressa bryon eligible based on patient's age to complete this topic Pneumococcal Vaccine: Pediat rics (0 to 5 Years) and At-Risk Patients (6 to 64 Years) Aged Out No longer eligible b ased on patient's age to complete this topic RSV under 20 months Aged Out No longe r eligible based on patient's age to complete this topic Rotavirus Vaccines Aged Out No longer eligible based on patient's age to complete this topic Insurance [facility]
--- OUTSIDE RECORDS SUMMARY | 2024-11-24 15:42 | XMS_ITS | Patient Health Record ---
Author Organization [facility] Address [address] [place] [address] Care Team Providers Care [facility] Name Role Phone Mustapha Godinez Primary Care Provider Unavailab Massimo Fagan Unavailable ALLERGIES Allergen (clinical drug ingredient) Drug/Non Drug Allergy documented on EMR Reaction Allergy Type Onset Date Status acetaminophen acetaminophen (uncoded) rash Allergy Active oxycodone oxycodone (uncoded) rash Allergy Active morphine Morphine Sulfate Unknown Drug Allergy Active acetaminophen / oxycodone Percocet Unknown Drug Allergy Active LATEX Unknown Drug Allergy Active REASON FOR REFERRAL No Information MEDICATIONS Medication SIG (Take, Route, Frequency, Duration) Notes Start Date End Date Status SEROquel 50 MG 1 tablet at bedtime Orally Once a day Active Trileptal 300 MG 1 tablet Orally twic e a day Active ProAir HFA 108 (90 Base) MCG/ACT 2 puffs as needed Inhalation every 4 hrs Not-Taking hydrOXYzine Pamoate 50 MG 2 capsule as n eeded Orally every 6 hrs Not-Taking Cholecalciferol 44443 UNIT Orally Not-Taking traMADol HCl 50 MG 1 tablet as needed Orally every 6 hrs Active SOCIAL HISTORY Sex Assigned At : Social History Observation Description Sex Assigned At Unknown Tobacco use other than smoking: Question Answer Notes Are you an other tobacco user? No PROBLEMS Problem Type ICD Code Onset Dates Problem Status W/U Status Risk SNOMED Code Notes Problem Palpitations (R00.2) Active confirmed 86820423 Problem Impaired fasting glucose (R73.01) Active confirmed Impaired fasting glucose (862006525) Problem Tobacco use (Z72.0) Active confirmed Tobacco use (365950477) Problem Obesity (E66.9) Active confirmed 158865 001 Problem Anxiety (F41.9) Active confirmed 309234 02 Problem Chest pain (R07.9) Active confirmed 298 22069 Problem Obstructive sleep apnea (G47.33) Active confirmed 04914172 Problem Vitamin D deficiency (E55.9) Active confirmed 08751280 Problem Posttraumatic stress disorder (F43.10) Active confirmed 41319894 PLAN OF TREATMENT Pending Test Test Name Order Date Electrocardiogram (EKG) 06/10/2018 ECHOCARDIOGRAM 07/21/2015 ECHOCARDIOGRAM 05/06/2018 BNP 09/13/2015 CBC 09/13/2015 CHEM 14 09/13/2015 A1C 09/13/2015 LIPID PANEL (MU) 09/13/2015 MAGNESIUM 09/13/2015 THYROID STIMULATING HORMONE 09/13/2015 TSH REFLEX FREE T4-REAL 06/10/2018 TSH REFLEX FREE T4-REAL 04/18/2018 MAGNESIUM 04/18/2018 MAGNESIUM 06/10/2018 BRAIN NATRIURETIC PEPTIDE 06/10/2018 BRAIN NATRIURETIC PEPTIDE 04/18/2018 COMPREHENSIVE METABOLIC PANEL 06/10/2018 COMPREHENSIVE METABOLIC PANEL 04/18/2018 LIPID PANEL 04/18/2018 LIPID PANEL 06/10/2018 CBC 06/10/2018 CBC 04/18/2018 CK 04/18/2018 CK 06/10/2018 HEMOGLOBIN A1C 06/10/2018 HEMOGLOBIN A1C 04/18/2018 Insurance Providers Payer Name Payer Address Payer Phone Subscriber Number Group Number Insured Name Patient Relationship to Insured Coverage Start Date Coverage End Date [employer] [address] [place] Crisostomo [id number] Ladonna Szymanski Self - patient is the insured MEDICAL (GENERAL) HISTORY Medical History History ICD Code palpitations chest pain renal calculi obstructive sleep apnea vitamin D deficiency vitamin B deficiency uterine fibroids bipolar disorder anxiety and depression posttraumatic stress disorder obesity Surgical History Surgery Date(Month/Year) tonsillectomy tubal ligation lithotripsy for renal calculi
== END 2024-11-24 15:43 | disposition home or self-care (01) ==
DX: R59.9 Enlarged lymph nodes, unspecified (principal); N64.4 Mastodynia; I50.32 Chronic diastolic (congestive) heart failure

== ENCOUNTER → 2024-11-24 14:43 | Outpatient (BNVA) | payer OTHER, SELFPAY | DX: R59.9 Enlarged lymph nodes, unspecified (principal); N64.4 Mastodynia; I50.32 Chronic diastolic (congestive) heart failure | CPT/HCPCS: 99212 ==

== ENCOUNTER 2024-11-30 14:22 | Emergency (ER) | payer OTHER, SELFPAY ==
--- NOTE | ~2024-11-30 | XR_ITS ---
EXAMINATION: XR ANKLE 3 OR MORE VIEWS LEFT, XR FOOT 3 OR MORE VIEWS LEFT HISTORY: fall COMPARISON: There are no prior studies available for comparison. FINDINGS: Six views of the left foot and ankle are submitted. Osseous mineralization is normal. There is a mildly displaced oblique fracture of the distal shaft of the 5th metatarsal. No additional fracture is identified. There is no dislocation. The joint spaces are preserved. There is a small plantar calcaneal spur. There is diffuse soft tissue swelling. XR/XR foot LT min 3V IMPRESSION: Mildly displaced oblique fracture of the distal shaft of the 5th metatarsal. Electronically signed by: Gonzalez Chin MD 11/30/2024 03:21 PM EST
--- NOTE | ~2024-11-30 | XR_ITS ---
EXAMINATION: XR ANKLE 3 OR MORE VIEWS LEFT, XR FOOT 3 OR MORE VIEWS LEFT HISTORY: fall COMPARISON: There are no prior studies available for comparison. FINDINGS: Six views of the left foot and ankle are submitted. Osseous mineralization is normal. There is a mildly displaced oblique fracture of the distal shaft of the 5th metatarsal. No additional fracture is identified. There is no dislocation. The joint spaces are preserved. There is a small plantar calcaneal spur. There is diffuse soft tissue swelling. XR/XR ankle LT min 3V IMPRESSION: Mildly displaced oblique fracture of the distal shaft of the 5th metatarsal. Electronically signed by: Gonzalez Chin MD 11/30/2024 03:21 PM EST
--- NOTE | ~2024-11-30 | XR_ITS ---
EXAMINATION: XR HAND/WRIST, RIGHT CLINICAL INFORMATION: fall COMPARISON: None available. TECHNIQUE: PA, lateral, and oblique views of the right hand and wrist. Scaphoid projection. FINDINGS: No acute cortical disruption or malalignment. No lytic or blastic lesions. Scaphoid projection demonstrates an intact bone. No metallic or radiopaque foreign body. XR/XR hand wrist RT IMPRESSION: No acute fracture or dislocation. Electronically signed by: Nelson Sullivan MD 11/30/2024 03:21 PM ANGEL CASTRO
[2024-11-30 14:36] VITALS: BP 155/86; PULSE 74; RESP 18; TEMP 36.8; O2SAT 93; BMI 58.4
--- NOTE | 2024-11-30 18:40 | ED_ITS ---
HPI - General Adult General Chief complaint: Extremity Injury, Lower Stated complaint: L foot inj Time Seen by Provider: 11/30/24 18:39 Source: patient Mode of arrival: ambulatory Limitations: no limitations History of Present Illness ED Provider: Nory Roy PA-C HPI narrative: Patient is a 54 year old assigned female at with a history of CHF presenting to the emergency department today with left foot pain. Patient states that yesterday she tripped over her own leg trying to get into her car. Patient states that ever since she has had left foot and right hand pain. Patient denies any head strike or loss of consciousness, dizziness, lightheadedness, abdominal pain, nausea, vomiting, fever, chills, blurry vision, double vision, loss of vision, chest pain, difficulty breathing, shortness of breath, back pain, night sweats, pain with urination, increased urinary frequency, increased urinary urgency, blood in her urine or stool, syncope or a near syncopal episode, bowel incontinence, bladder incontinence, or any other complaints at this time. Relieving factors: none Exacerbating factors: movement Associated symptoms: denies other symptoms Treatments prior to arrival: none Related Data Home Medications ?Medication ?Instructions ?Recorded ?Confirmed ibuprofen 800 mg tablet 800 mg PO TID 03/31/21 11/24/24 omeprazole 20 mg capsule,delayed 20 mg PO DAILY 06/17/24 11/24/24 release lidocaine 5 % topical patch 1 patch topical DAILY 06/24/24 11/24/24 mecobalamin (vitamin B12) 10,000 1,000 mcg subcut .once a week 06/24/24 11/24/24 mcg solution for injection Previous Rx's ?Medication ?Instructions ?Recorded dicyclomine 20 mg tablet 20 mg PO TID #20 tabs 06/11/24 albuterol sulfate 90 mcg/actuation 2 puff inhalation Q6H PRN 07/20/24 aerosol inhaler (Proventil HFA) shortness of breath or wheezing #6.7 grams cholecalciferol (vitamin D3) 25 50 mcg (2 x 25 mcg (1,000 unit)) 07/20/24 mcg (1,000 unit) capsule (Vitamin PO DAILY #30 caps D3) fexofenadine 180 mg tablet 180 mg PO DAILY #30 tabs 07/20/24 sennosides 8.6 mg capsule (senna) 8.6 mg PO BEDTIME PRN constipation 07/20/24 #30 caps vitamin A palmitate 3,000 mcg 20,000 unit PO DAILY 30 days #60 07/20/24 (10,000 unit) tablet tabs benzonatate 100 mg capsule 100 mg PO TID PRN cough #14 caps 07/21/24 thiamine HCl (vitamin B1) 100 mg 100 mg PO DAILY 90 days #90 tabs 07/31/24 tablet docusate sodium 100 mg capsule 100 mg PO BID 90 days #180 caps 08/13/24 (Colace) sucralfate 1 gram tablet (Carafate) 1 g PO BID PRN acid reflux #14 tabs 09/03/24 Shower Chair #1 ea 09/09/24 semaglutide (weight loss) 0.5 0.5 mg (0.5 mL) subcut QWEEK #2 mL 10/01/24 mg/0.5 mL subcutaneous pen injector (Wegovy) hydrocodone 5 mg-acetaminophen 325 1 tab PO Q4-6H PRN pain #5 tabs 10/19/24 mg tablet semaglutide (weight loss) 1 mg/0.5 1 mg (0.5 mL) subcut Q7D #2 mL 10/29/24 mL subcutaneous pen injector (Wegovy) furosemide 40 mg tablet 60 mg (1.5 x 40 mg) PO DAILY #135 11/24/24 tabs Allergies Allergy/AdvReac Type Severity Reaction Status Date / Time morphine Allergy Severe Shortness Verified 11/30/24 14:39 of Breath Seasonal Allergies Allergy Severe Sneezing Verified 11/30/24 14:39 acetaminophen [From Percocet] Allergy Intermediate Rash Verified 11/30/24 14:39 latex [Latex] Allergy Intermediate ITCHY, Verified 11/30/24 14:39 RASH , AND FUNGUS oxycodone Allergy Intermediate Rash Verified 11/30/24 14:39 Review of Systems Constitutional: Constitutional: Reports no additional constitutional complaints, Denies chills, Denies fever(s) and Denies night sweats Eyes: Eyes: Reports no additional eye complaints, Denies blurry vision, Denies change in vision, Denies diplopia, Denies eye discharge, Denies loss of vision and Denies eye pain ENT: Denies dizziness Cardiovascular: Cardiovascular: Reports no additional cardiovascular complaints, Denies chest pain, Denies lightheadedness, Denies Loss of Consciousness and Denies dyspnea Respiratory: Respiratory: Reports no additional respiratory complaints and Denies dyspnea Gastrointestinal: Gastrointestinal: Reports no additional gastrointestinal complaints, Denies abdominal pain, Denies melena, Denies hematochezia, Denies change in bowel habits and Denies change in stool character Genitourinary: Genitourinary: Denies hematuria, Denies urinary frequency, Denies dysuria, Denies urinary incontinence, Denies urinary hesitancy and Denies urinary urgency Musculoskeletal: Musculoskeletal: Reports no additional musculoskeletal complaints, Denies numbness and Denies tingling Comments: left foot pain right hand pain Neurologic: Denies dizziness, Denies loss of vision, Denies numbness and Denies tingling Psychiatric: Psychiatric: Reports no additional psychiatric complaints Endocrine: Endocrine: Reports no additional endocrine complaints Hematologic/Lymphatic: Hematologic/Lymphatic: Reports no additional hematologic/lymphatic complaints Allergic/Immunologic: Allergic/Immunologic: Reports no additional allergic/immunologic complaints [facility] Past Medical History Attestation statement: The following information was validated with the patient. Source: old records reviewed and nursing notes reviewed Medical History Chronic diastolic (congestive) heart failure Anal fistula Sinus complaint Sterilization Kidney stone Acute appendicitis Vesicular dermatitis Enlarged lymph node Acute bacterial tonsillitis History of claustrophobia History of anxiety Hx of tendinitis Hx of bursitis History of knee problem Hx of chronic arthritis Family history of heart murmur History of asthma Surgical History History of hand surgery Hx of carpal tunnel repair H/O bilateral mastectomy History of kidney surgery Hx of tubal ligation Hx of tonsillectomy Hx of breast surgery Hx of appendectomy Hx of cholecystectomy Hx of knee surgery History of Achilles tendon repair Family History Family History Mother Accelerated hypertension Arthritis Cancer of stomach Father Arthritis Sister No problems noted. Sister Arthritis Accelerated hypertension Sister No problems noted. Sister No problems noted. Brother Overdose Brother HIV disease Son Asthma Son No problems noted. Son No problems noted. Son No problems noted. Daughter No problems noted. Social History Social History (Reviewed 11/30/24 @ 18:50 by TRELL Garcia Housing: Apartment Alcohol intake: former Patient Tobacco Use Status: Former Tobacco user Tobacco use type: Cigarette Cigarettes Per Day: 1 Years Smoked: 30 e-Cigarette/Vaping Use: Never Used Second Hand Smoke Exposure: Yes service: No Current occupational status: unemployed Cognitive needs: Yes Hearing needs: No Vision needs: Yes Physical Exam ED Vital Signs: Vital Signs - 24 hr 11/30/24 14:36 Temperature 98.3 F Pulse Rate 74 Respiratory Rate 18 Blood Pressure 155/86 H Pulse Oximetry 93 Oxygen Delivery Method Room Air BMI result Body Mass Index 58.4 Const General: cooperative, no acute distress, alert and awake Nutritional Appearance: well nourished Orientation/consciousness: patient oriented x3 Limitations: no limitations HENMT Head: Yes normal to inspection and Yes atraumatic Ears: hearing grossly normal bilaterally and external ears normal General nose exam: Normal external nose present, no nasal discharge noted and no epistaxis Face and sinus: Yes normal facial exam, No abrasion and No laceration Mouth: Normal oral and palatal mucosa present, no drooling and no muffled voice Eyes General: appearance normal, both eyes and all related structures Periorbital: periorbital findings normal Eyelids: Yes eyelids normal Conjunctivae: conjunctivae normal Pupils: Equal, round and reactive pupils present EOM: EOMs intact bilaterally Neck Neck: Yes normal visual inspection, Yes full ROM and Yes no lymphadenopathy Chest Chest palpation & inspection: normal inspection of the chest Resp Effort & Inspection: normal respiratory effort and able to speak in complete sentences GI Inspection: Yes normal to inspection Neuro General: patient oriented x3 and moves all extremities Cranial nerves: Yes Equal, round and reactive pupils present Cognition (Neuro): normal cognition Extrem Other: pain with palpation of the left foot General: Yes normal to inspection, Yes full ROM and Yes capillary refill normal Psych Appearance: grossly normal Mental Status: mental status grossly normal Affect: normal affect Attitude: cooperative Thought process: Normal thought process present Thought content: Normal thought content present Insight: Good insight present (Psych) Procedures Orthopedic Splinting/Casting Injury #1: Side: left Lower Extremity Injury Location: foot Lower Extremity Immobilizer: post-op shoe Other Orthopedic Equipment: crutches Medical Decision Making Medical Decision Making MDM Narrative: Patient is a 54 year old assigned female at with a history of CHF presenting to the emergency department today with left foot pain. Patient's physical exam was as noted in the physical exam. Patient's right hand/wrist and left ankle x-rays showed no acute process. Patient's left foot x-ray showed a 5th metatarsal fracture. I explained my physical exam findings as well as all test results to the patient. I answered all questions asked by the patient. Patient's left foot was placed in a post-op shoe and the patient was given crutches with crutch instructions. I stressed the importance of the patient taking her medication as directed (either prescribed or as the over the counter packaging recommends). I stressed the importance of the patient following up with her primary care provider and an orthopedic provider. I stressed the importance of the patient returning to the emergency department immediately if her symptoms were to worsen or if she were to develop any dizziness, shortness of breath, difficulty breathing, chest pain, blurry vision, loss of vision, nausea, vomiting, abdominal pain, fever, chills, back pain, or any other complaints. Patient verbalized agreement and understanding with this treatment plan and discharge. Differential Diagnosis Differential Diagnoses: The differential diagnosis associated with the presentation includes Left foot fracture Right hand sprain Fall Trip Admission/Observation Consideration of admission/observation: Escalation of care including admission/observation considered Patient would have been admitted to the hospital had her work up had any findings where hospital admission was appropriate and her clinical presentation warranted hospital admission. Independent Interpretation I performed an independent interpretation of an: Plain X-Ray Interpretation: My interpretation is in agreement with the radiologist's impression of these imaging studies. EXAMINATION: XR ANKLE 3 OR MORE VIEWS LEFT, XR FOOT 3 OR MORE VIEWS LEFT HISTORY: fall COMPARISON: There are no prior studies available for comparison. FINDINGS: Six views of the left foot and ankle are submitted. Osseous mineralization is normal. There is a mildly displaced oblique fracture of the distal shaft of the 5th metatarsal. No additional fracture is identified. There is no dislocation. The joint spaces are preserved. There is a small plantar calcaneal spur. There is diffuse soft tissue swelling. XR/XR ankle LT min 3V IMPRESSION: Mildly displaced oblique fracture of the distal shaft of the 5th metatarsal. Electronically signed by: Gonzalez Chin MD 11/30/2024 03:21 PM EST RP Dictated By: Gonzalez Chin MD Signed By: Electronically signed by Gonzalez Chin MD 11/30/24 1521 EXAMINATION: XR HAND/WRIST, RIGHT CLINICAL INFORMATION: fall COMPARISON: None available. TECHNIQUE: PA, lateral, and oblique views of the right hand and wrist. Scaphoid projection. FINDINGS: No acute cortical disruption or malalignment. No lytic or blastic lesions. Scaphoid projection demonstrates an intact bone. No metallic or radiopaque foreign body. XR/XR hand wrist RT IMPRESSION: No acute fracture or dislocation. Electronically signed by: Nelson Sullivan MD 11/30/2024 03:21 PM EST RP Dictated By: Nelson Molina MD Signed By: Electronically signed by Nelson Phan MD 11/30/24 1521 Radiology Impression Discussion of test interpretation with radiology: I have reviewed the radiologist's reading. Discharge Plan Discharge Clinical Impression: Foot fracture Patient Disposition: Home, Self-Care Instructions: Foot Fracture in Adults (ED) Additional Instructions: Follow up with your primary care provider and an orthopedic provider. Return to the emergency department immediately if your symptoms worsen or if you develop any dizziness, shortness of breath, difficulty breathing, chest pain, blurry vision, loss of vision, nausea, vomiting, abdominal pain, fever, chills, back pain, or any other complaints. Ronald un seguimiento con bazan m?dico de cabecera y un traumat?logo. Acuda inmediatamente al servicio de urgencias si bob s?ntomas empeoran o si presenta mareos, falta de aliento, dificultad para respirar, dolor tor?cico, visi?n borrosa, p?rdida de visi?n, n?useas, v?mitos, dolor abdominal, fiebre, escalofr?os, dolor de espalda o cualquier otra molestia. Prescriptions: No Action thiamine HCl (vitamin B1) 100 mg tablet 100 mg PO DAILY 90 Days Qty: 90 1RF docusate sodium [Colace] 100 mg capsule 100 mg PO BID 90 Days Qty: 180 0RF (DME) Shower Chair Misc See Rx Instructions .Route Qty: 1 0RF Rx Instructions: As directed Wegovy 0.5 mg/0.5 mL pen injector 0.5 mg subcut QWEEK Qty: 2 0RF Rx Instructions: administer weeks 5 through 8 of therapy Wegovy 1 mg/0.5 mL pen injector 1 mg subcut Q7D Qty: 2 0RF dicyclomine 20 mg tablet 20 mg PO TID Qty: 20 0RF benzonatate 100 mg capsule 100 mg PO TID PRN (Reason: cough) Qty: 14 0RF hydrocodone-acetaminophen 5-325 mg tablet 1 tab PO Q4-6H PRN (Reason: pain) Qty: 5 0RF Rx Instructions: Partial Fill upon patient request. sucralfate [Carafate] 1 gram tablet 1 g PO BID PRN (Reason: acid reflux) Qty: 14 0RF omeprazole 20 mg capsule,delayed release(DR/EC) 20 mg PO DAILY ibuprofen 800 mg tablet 800 mg PO TID lidocaine 5 % adhesive patch,medicated 1 patch topical DAILY Rx Instructions: leave on most painful area for up to 12 hrs mecobalamin (vitamin B12) 10,000 mcg recon soln 1,000 mcg subcut .once a week senna 8.6 mg capsule 8.6 mg PO BEDTIME PRN (Reason: constipation) Qty: 30 0RF albuterol sulfate [Proventil HFA] 90 mcg/actuation HFA aerosol inhaler 2 puff inhalation Q6H PRN (Reason: shortness of breath or wheezing) Qty: 6.7 0RF cholecalciferol (vitamin D3) [Vitamin D3] 25 mcg (1,000 unit) capsule 50 mcg PO DAILY Qty: 30 3RF fexofenadine 180 mg tablet 180 mg PO DAILY Qty: 30 3RF vitamin A palmitate 3,000 mcg (10,000 unit) tablet 20,000 unit PO DAILY 30 Days Qty: 60 0RF furosemide 40 mg tablet 60 mg PO DAILY Qty: 135 1RF Referrals: [facility] [Provider Group] (Call to establish and follow up with an orthopedic provider. Llame para establecer y seguir con un proveedor de ortopedia.) Kirstin Reyes PA-C [Primary Care Provider] - Print Language: Sudanese
[2024-11-30 18:49] VITALS: BP 151/76; PULSE 64; RESP 16; TEMP 36.6; O2SAT 98
== END 2024-11-30 19:02 | disposition home or self-care (01) ==
PROVIDERS: Emergency Provider Emergency Medicine Emergency Medical Services
DX: S92.902A Unspecified fracture of left foot, initial encounter for closed fracture (principal); S69.91XA Unspecified injury of right wrist, hand and finger(s), initial encounter; M25.571 Pain in right ankle and joints of right foot; M25.531 Pain in right wrist; W18.39XA Other fall on same level, initial encounter; Y93.9 Activity, unspecified; Y92.810 Car as the place of occurrence of the external cause; Y99.8 Other external cause status; Z87.891 Personal history of nicotine dependence; Z79.899 Other long term (current) drug therapy
CPT/HCPCS: 29515; 73110; 73130; 73610; 73630; 99283; 99284

== ENCOUNTER → 2024-11-30 15:00 | Outpatient (BNV) | payer OTHER, SELFPAY | PROVIDERS: Visit Provider Radiology Diagnostic Radiology | DX: S92.352A Displaced fracture of fifth metatarsal bone, left foot, initial encounter for closed fracture (principal); M79.641 Pain in right hand | CPT/HCPCS: 73130; 73610; 73630 ==

== ENCOUNTER 2024-12-04 11:17 | Outpatient (REF) | payer MEDICAID, SELFPAY ==
[2024-12-04 12:47] LABS: Anion Gap 11 (12-20); Blood Urea Nitrogen 13 mg/dL (9-16); Calcium 9.4 mg/dL (8.4-10.2); Carbon Dioxide 28 mmol/L (22-29); Chloride 103 mmol/L (96-108); Estimated Glomerular Filt Rate > 60; Glucose Random 92 mg/dL (60-115); Potassium 4.5 mmol/L (3.3-5.1); Sodium 137 mmol/L (135-145)
[2024-12-04 13:07] LABS: Free T4 (Free Thyroxine) 1.27 ng/dL (0.71-1.85); TSH reflex Free T4 0.28 uIU/mL (0.32-4.0)
== END 2024-12-04 11:18 | disposition home or self-care (01) ==
LOC: HO.LAB 11:17
PROVIDERS: Visit Provider Internal Medicine
DX: S92.353D Displaced fracture of fifth metatarsal bone, unspecified foot, subsequent encounter for fracture with routine healing (principal); M79.89 Other specified soft tissue disorders; Z87.42 Personal history of other diseases of the female genital tract; I25.10 Atherosclerotic heart disease of native coronary artery without angina pectoris; R94.6 Abnormal results of thyroid function studies
CPT/HCPCS: 36415; 80048; 84439; 84443; 99212

== ENCOUNTER 2024-12-07 13:27 | Outpatient (REF) | payer MEDICAID, SELFPAY ==
--- NOTE | ~2024-12-07 | XR_ITS ---
EXAMINATION: XR FOOT 3 OR MORE VIEWS LEFT HISTORY: M79.672 - Pain in left foot COMPARISON: Comparison is made with the prior examination dated 11/30/2022. FINDINGS: Three views of the left foot are submitted. Osseous mineralization is normal. Again seen is an oblique fracture of the 5th metatarsal shaft. There is likely greater displacement since the prior study. The joint spaces are preserved. The soft tissues are unremarkable. XR/XR foot LT min 3V IMPRESSION: Slightly greater displacement of the previously seen oblique fracture of the 5th metatarsal shaft. Electronically signed by: Gonzalez Chin MD 12/07/2024 03:54 PM ANGEL
--- OUTSIDE RECORDS SUMMARY | 2024-12-07 14:31 | XMS_ITS | Clinical Summary ---
Author Organization [employer] [facility] Address [address] [place] [address] [address] [place] [address] Care Team Providers Care Welder First Class Name Role Phone Unavailable Primary Care Provider [...] Cancer Screening 2002 HPV/Cotest 2002 Mammogram 2012 Pneumococcal Vaccine: 50+ Ye ars (1 of 1 - PCV) 2022 Zoster Vaccines (1 of 2) 2022 COVID-19 [...] 5 Years) and At-Risk Patients (6 to 49) Years) Aged Out No longer eligible b ased on patient's age to complete this topic RSV under 20 months Aged Out No longe r eligible based on patient's age to complete this topic Rotavirus Vaccines Aged Out No longer eligible based on patient's age to complete this topic Insurance [facility] C3
--- OUTSIDE RECORDS SUMMARY | 2024-12-07 14:31 | XMS_ITS | Patient Health Record ---
Author Organization [facility] Address [address] [place] [address] Care Team Providers Care Certified Master Safe Technician Name Role Phone Mustapha Godinez Primary Care Provider Unavailab Massimo Fagan Unavailable [phone] ALLERGIES Allergen (clinical drug ingredient) Drug/Non Drug [...] eeded Orally every 6 hrs Not-Taking Cholecalciferol 36412 UNIT Orally Not-Taking traMADol HCl 50 MG [...] Code Notes Problem Palpitations (R00.2) Active confirmed 67476261 Problem Impaired fasting glucose (R73.01) Active confirmed Impaired fasting glucose (359860875) Problem Tobacco use (Z72.0) Active confirmed Tobacco use (888556943) Problem Obesity (E66.9) Active confirmed 629713 001 Problem Anxiety (F41.9) Active confirmed 145468 02 Problem Chest pain (R07.9) Active confirmed 298 45394 Problem Obstructive sleep apnea (G47.33) Active confirmed 08686494 Problem Vitamin D deficiency (E55.9) Active confirmed 59566269 Problem Posttraumatic stress disorder (F43.10) Active confirmed 95956552 PLAN OF TREATMENT Pending Test Test Name [...] HEALTH MEDICAID [address] [place] [id number] Ladonna Szymanski Self - patient is the insured MEDICAL (GENERAL) HISTORY Medical History History ICD Code palpitations chest pain renal calculi obstructive sleep apnea vitamin D deficiency vitamin B deficiency uterine fibroids bipolar disorder anxiety and depression posttraumatic stress disorder obesity Surgical History Surgery Date(Month/Year) tonsillectomy tubal ligation lithotripsy for renal calculi
== END 2024-12-07 13:28 | disposition home or self-care (01) ==
LOC: HO.HOSX 13:27
DX: S92.352A Displaced fracture of fifth metatarsal bone, left foot, initial encounter for closed fracture (principal)
CPT/HCPCS: 73630; 99212

== ENCOUNTER 2024-12-07 13:45 | Outpatient (AMB) | payer OTHER, SELFPAY ==
--- NOTE | 2024-12-07 13:48 | A.OFFVIS_ITS ---
Vital Signs 12/07/24 13:49 Height 5 ft 8 in Weight 383 lb BMI 58.2 Intake Visit Reasons: FC- LT foot 5th metatarsal fx Intake Note: Ladonna is a 54 year old right hand dominant female who presents today for a fracture care visit for her left foot. 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 Patient states her ankle rolled over. Patient reports pain on the lateral aspect of the left foot. Reports numbness and tingling radiating to her lower leg. Patient states she is not taking anything for pain. Reports left foot surgery and tendon repair on her left leg 2 years ago. Allergies morphine Allergy (Severe, Verified 12/07/24 14:13) Shortness of Breath Seasonal Allergies Allergy (Severe, Verified 12/07/24 14:13) Sneezing acetaminophen [From Percocet] Allergy (Intermediate, Verified 12/07/24 14:13) Rash latex [Latex] Allergy (Intermediate, Verified 12/07/24 14:13) ITCHY, RASH , AND FUNGUS oxycodone Allergy (Intermediate, Verified 12/07/24 14:13) Rash HPI HPI FC- LT foot 5th metatarsal fx: Details: Ladonna is a 54 year old right hand dominant female who presents today for a fracture care visit for her left foot. 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 Patient states her ankle rolled over. Patient reports pain on the lateral aspect of the left foot. Reports numbness and tingling radiating to her lower leg. Patient states she is not taking anything for pain. Reports left foot surgery and tendon repair on her left leg 2 years ago. [facility] Medical History Chronic diastolic (congestive) heart failure Anal fistula Sinus complaint Sterilization Kidney stone Acute appendicitis Vesicular dermatitis Enlarged lymph node Acute bacterial tonsillitis History of claustrophobia History of anxiety Hx of tendinitis Hx of bursitis History of knee problem Hx of chronic arthritis Family history of heart murmur History of asthma Surgical History History of hand surgery Hx of carpal tunnel repair H/O bilateral mastectomy History of kidney surgery Hx of tubal ligation Hx of tonsillectomy Hx of breast surgery Hx of appendectomy Hx of cholecystectomy Hx of knee surgery History of Achilles tendon repair Family History Mother Accelerated hypertension Arthritis Cancer of stomach Father Arthritis Sister No problems noted. Sister Arthritis Accelerated hypertension Sister No problems noted. Sister No problems noted. Brother Overdose Brother HIV disease Son Asthma Son No problems noted. Son No problems noted. Son No problems noted. Daughter No problems noted. Social History Housing: Apartment Alcohol intake: former Patient Tobacco Use Status: Former Tobacco user Tobacco use type: Cigarette Cigarettes Per Day: 1 Years Smoked: 30 e-Cigarette/Vaping Use: Never Used Second Hand Smoke Exposure: Yes service: No Current occupational status: unemployed Cognitive needs: Yes Hearing needs: No Vision needs: Yes Female Reproductive History Menstrual Age of Menarche: 14 Review of Systems Const All systems reviewed & are unremarkable except as noted in HPI and below Physical Exam Vital Signs: BMI result Body Mass Index 58.2 Extrem Other: Patient's left foot slightly edematous and ecchymotic, otherwise normal to inspection No erythema noted No lacerations, abrasions, open areas No evidence of infection Patient reports moderate tenderness to palpation of the lateral aspect of the left foot at the level of the fracture of the 5th metatarsal No other tenderness to palpation of the left foot noted Distal sensation intact Capillary refill brisk Office Procedures AMB Fracture Care Fracture Billing Code: Fracture Billing Code Results Reviewed Results Reviewed: X-rays obtained in the office today and independently reviewed by me, Wiliam Devi PA-C, demonstrate minimally displaced fracture of the 5th metatarsal shaft of the left foot. Assessment & Plan Assessment & Plan (1) Fracture of fifth metatarsal bone: Code(s): S92.353A - Displaced fracture of fifth metatarsal bone, unspecified foot, initial encounter for closed fracture Category: Medical Plan 1. Left 5th metatarsal shaft fracture Date of injury 11/30/2024 Patient is educated about this injury Patient is educated about the typical recovery course At this time, patient was educated that she can continue to weightbear in the postop shoe as tolerated Patient was advised that she should be wearing the postop shoe whenever weight- bearing Patient will follow-up in 3 weeks with repeat x-rays for reassessment, sooner with any acute concerns Orders: Orders XR foot LT min 3V Today M79.672 - Pain in left foot Coding Level of Care Code Est Pt Level 3 (78775) Diagnoses Fracture of fifth metatarsal bone S92.353A CPT Codes Fracture Care - Fracture Billing Code: Fracture Billing Code ([id number])
[2024-12-07 13:49] VITALS: BMI 58.2
--- OUTSIDE RECORDS SUMMARY | 2024-12-07 14:52 | XMS_ITS | Clinical Summary ---
Author Organization [employer] [facility] Address [address] [place] [address] 7[address] [place] [address] Care Team Providers Care Program Officer Name Role Phone Unavailable Primary Care Provider [...] patient's age to complete this topic Insurance [facility] C3
== END 2024-12-07 15:45 | disposition home or self-care (01) ==
DX: S92.353A Displaced fracture of fifth metatarsal bone, unspecified foot, initial encounter for closed fracture (principal)
CPT/HCPCS: 99213

== ENCOUNTER → 2024-12-07 13:52 | Outpatient (BNV) | payer MEDICAID, SELFPAY | PROVIDERS: Visit Provider Radiology Diagnostic Radiology | DX: S92.352A Displaced fracture of fifth metatarsal bone, left foot, initial encounter for closed fracture (principal) | CPT/HCPCS: 73630 ==

== ENCOUNTER 2024-12-08 14:04 | Outpatient (REF) | payer MEDICAID, SELFPAY | END 2024-12-08 14:05 | disposition home or self-care (01) | LOC: HO.US 14:04 | DX: R59.9 Enlarged lymph nodes, unspecified (principal) | CPT/HCPCS: 76604 ==

== ENCOUNTER → 2024-12-08 14:06 | Outpatient (BNV) | payer OTHER, SELFPAY | PROVIDERS: Visit Provider Radiology Diagnostic Radiology | DX: D17.1 Benign lipomatous neoplasm of skin and subcutaneous tissue of trunk (principal) | CPT/HCPCS: 76604 ==

== ENCOUNTER 2024-12-24 11:26 | Outpatient (AMB) | payer OTHER, SELFPAY ==
--- NOTE | 2024-12-24 11:30 | MHC.OFFVIS ---
Intake Visit Reasons: Lipoma Intake Note: This patient presents for lipoma assessment on LUQ. Noticed 1m. Pt c/o; painful when pressed on. Feels like growth is enlarging. Encapsulator Required: No Accompanied by: son Jaxson Betancur Allergies morphine Allergy (Severe, Verified 12/24/24 11:42) Shortness of Breath Seasonal Allergies Allergy (Severe, Verified 12/24/24 11:42) Sneezing acetaminophen [From Percocet] Allergy (Intermediate, Verified 12/24/24 11:42) Rash latex [Latex] Allergy (Intermediate, Verified 12/24/24 11:42) ITCHY, RASH , AND FUNGUS oxycodone Allergy (Intermediate, Verified 12/24/24 11:42) Rash Medication List - Last Reconciled 12/24/24 by Naresh Anthony MD albuterol sulfate 90 mcg/actuation (Proventil HFA) 2 puffs inhalation Q6H PRN cholecalciferol (vitamin D3) (Vitamin D3) 50 mcg (2 x 25 mcg (1,000 unit)) PO DAILY cyclobenzaprine 5 mg PO BEDTIME dicyclomine 20 mg PO TID docusate sodium (Colace) 100 mg PO BID 90 days fexofenadine 180 mg PO DAILY furosemide 60 mg (1.5 x 40 mg) PO DAILY hydrocodone-acetaminophen 5-325 mg 1 tab PO Q4-6H PRN ibuprofen 800 mg PO TID [Kneeling Scooter As directed] lidocaine 5% 1 patch topical DAILY mecobalamin (vitamin B12) 1,000 mcg subcut .once a week omeprazole 20 mg PO DAILY semaglutide (weight loss) (Wegovy) 0.5 mg (0.5 mL) subcut QWEEK sennosides (senna) 8.6 mg PO BEDTIME PRN Shower Chair As directed sucralfate (Carafate) 1 g PO BID PRN thiamine HCl (vitamin B1) 100 mg PO DAILY 90 days vitamin A palmitate 20,000 units PO DAILY 30 days HPI HPI Lipoma: Details: [age] year old female referred by the ER for a lipoma of the chest wall. She went to the ER 2 weeks ago because of what she describes a painful lump on the left chest wall under her breast. She had an ultrasound showing an lipoma, 2.1 cm in widest dimension She wants this excised. She says she has had calcifications in her left breast before and she is worried that this may be related to the lipoma. [facility], [facility] Medical History (Updated 12/24/24 @ 11:51 by Naresh Anthony MD) Lipoma of chest wall Chronic diastolic (congestive) heart failure Anal fistula Sinus complaint Sterilization Kidney stone Acute appendicitis Vesicular dermatitis Enlarged lymph node Acute bacterial tonsillitis History of claustrophobia History of anxiety Hx of tendinitis Hx of bursitis History of knee problem Hx of chronic arthritis Family history of heart murmur History of asthma Surgical History History of hand surgery Hx of carpal tunnel repair H/O bilateral mastectomy History of kidney surgery Hx of tubal ligation Hx of tonsillectomy Hx of breast surgery Hx of appendectomy Hx of cholecystectomy Hx of knee surgery History of Achilles tendon repair Family History Mother Accelerated hypertension Arthritis Cancer of stomach Father Arthritis Sister No problems noted. Sister Arthritis Accelerated hypertension Sister No problems noted. Sister No problems noted. Brother Overdose Brother HIV disease Son Asthma Son No problems noted. Son No problems noted. Son No problems noted. Daughter No problems noted. Social History Housing: Apartment Alcohol intake: former Patient Tobacco Use Status: Former Tobacco user Tobacco use type: Cigarette Cigarettes Per Day: 1 Years Smoked: 30 e-Cigarette/Vaping Use: Never Used Second Hand Smoke Exposure: Yes service: No Current occupational status: unemployed Cognitive needs: Yes Hearing needs: No Vision needs: Yes Female Reproductive History Menstrual Age of Menarche: 14 Review of Systems Const Denies chills and Denies fever(s) Card Denies chest pain, Reports dyspnea and Reports dyspnea on exertion Resp Denies cough, Reports dyspnea and Reports dyspnea on exertion GI Denies hematochezia and Denies change in bowel habits Denies hematuria Musc Reports back pain, Reports arthralgias and Reports limited range of motion Neuro Denies focal weakness and Denies convulsions Psych Denies depression and Denies mood swings Physical Exam Const Other: Morbidly obese, seems to walk with a limp General: comfortable and no acute distress Chest Other: Left lower chest wall with note of a lipomatous mass, about 2 cm , well-defined, not inflamed Resp Effort & Inspection: normal respiratory effort Cardio Rate: regular rate GI Palpation (GI): Soft to palpation Assessment & Plan Assessment & Plan (1) Lipoma of chest wall: Code(s): D17.1 - Benign lipomatous neoplasm of skin and subcutaneous tissue of trunk Category: Medical Plan: She wants this excised. I explained the technique of excision under local anesthesia. I reviewed the risks including but not limited to bleeding, infections and poor healing, as well as the benefits and alternatives. She understands and wants to proceed This will be done on her next visit here in the office under local anesthesia. Coding Level of Care Code New Pt Level 3 (68722) Diagnoses Lipoma of chest wall D17.1
--- OUTSIDE RECORDS SUMMARY | 2024-12-24 13:54 | XMS_ITS | Clinical Summary ---
Author Organization [employer] [facility] Address [address] [place] [address] [address] [place] [address] Care Team Providers Care Animal Physiology Teacher Name Role Phone Unavailable Primary Care Provider [...] patient's age to complete this topic Insurance [facility] C3
--- OUTSIDE RECORDS SUMMARY | 2024-12-24 13:54 | XMS_ITS | Patient Health Record ---
Author Organization [facility] Address [address] [place] [address] Care Team Providers Care Welder Helper Name Role Phone Mustapha Godinez Primary Care [...] eeded Orally every 6 hrs Not-Taking Cholecalciferol 32865 UNIT Orally Not-Taking traMADol HCl 50 MG [...] Code Notes Problem Palpitations (R00.2) Active confirmed 74699728 Problem Impaired fasting glucose (R73.01) Active confirmed Impaired fasting glucose (298314722) Problem Tobacco use (Z72.0) Active confirmed Tobacco use (004824177) Problem Obesity (E66.9) Active confirmed 927398 001 Problem Anxiety (F41.9) Active confirmed 572419 02 Problem Chest pain (R07.9) Active confirmed 298 89519 Problem Obstructive sleep apnea (G47.33) Active confirmed 55783098 Problem Vitamin D deficiency (E55.9) Active confirmed 27452304 Problem Posttraumatic stress disorder (F43.10) Active confirmed 64841017 PLAN OF TREATMENT Pending Test Test Name [...] HEALTH MEDICAID [address] [place] [id number] Ladonna Szymanski Self - patient is the insured MEDICAL (GENERAL) HISTORY Medical History History ICD Code palpitations chest pain renal calculi obstructive sleep apnea vitamin D deficiency vitamin B deficiency uterine fibroids bipolar disorder anxiety and depression posttraumatic stress disorder obesity Surgical History Surgery Date(Month/Year) tonsillectomy tubal ligation lithotripsy for renal calculi
== END 2024-12-24 11:48 | disposition home or self-care (01) ==
PROVIDERS: Visit Provider Surgery
DX: D17.1 Benign lipomatous neoplasm of skin and subcutaneous tissue of trunk (principal)
CPT/HCPCS: 99203

== ENCOUNTER → 2024-12-24 11:26 | Outpatient (BNVA) | payer OTHER, SELFPAY | PROVIDERS: Visit Provider Surgery | DX: D17.1 Benign lipomatous neoplasm of skin and subcutaneous tissue of trunk (principal) | CPT/HCPCS: 99202 ==

== ENCOUNTER → 2024-12-25 11:32 | Outpatient (REF) | payer OTHER, SELFPAY ==
--- OUTSIDE RECORDS SUMMARY | 2024-12-25 13:49 | XMS_ITS | Patient Health Record ---
Author Organization [facility] Address [address] [place] [address] Care Team Providers Care Instruction Dean Name Role Phone Mustapha Godinez Primary Care [...] eeded Orally every 6 hrs Not-Taking Cholecalciferol 21918 UNIT Orally Not-Taking traMADol HCl 50 MG 1 tablet as needed Orally every 6 hrs Active SOCIAL HISTORY Sex Assigned At : Social History Observation Description Sex Assigned At Unknown Tobacco use other than smoking: Question Answer Notes Are you an other tobacco user? No PROBLEMS Problem Type ICD Code Onset Dates Problem Status W/U Status Risk SNOMED Code Notes Problem Impaired fasting glucose (R73.01) Active confirmed Impaired fasting glucose (610356004) Problem Tobacco use (Z72.0) Active confirmed Tobacco use (518399672) Problem Palpitations (R00.2) Active confirmed 93790858 Problem Obesity (E66.9) Active confirmed 917518 001 Problem Anxiety (F41.9) Active confirmed 304071 02 Problem Chest pain (R07.9) Active confirmed 298 39465 Problem Obstructive sleep apnea (G47.33) Active confirmed 90235154 Problem Vitamin D deficiency (E55.9) Active confirmed 17033485 Problem Posttraumatic stress disorder (F43.10) Active confirmed 08508798 PLAN OF TREATMENT Pending Test Test Name Order Date Electrocardiogram (EKG) 06/10/2018 ECHOCARDIOGRAM 05/06/2018 ECHOCARDIOGRAM 07/21/2015 BNP 09/13/2015 CBC 09/13/2015 CHEM 14 09/13/2015 A1C 09/13/2015 LIPID PANEL (MU) 09/13/2015 MAGNESIUM 09/13/2015 THYROID STIMULATING HORMONE 09/13/2015 TSH REFLEX FREE T4-REAL 04/18/2018 TSH REFLEX FREE T4-REAL 06/10/2018 MAGNESIUM 06/10/2018 MAGNESIUM 04/18/2018 BRAIN NATRIURETIC PEPTIDE 04/18/2018 BRAIN NATRIURETIC PEPTIDE 06/10/2018 COMPREHENSIVE METABOLIC PANEL 06/10/2018 COMPREHENSIVE METABOLIC PANEL 04/18/2018 LIPID PANEL 04/18/2018 LIPID PANEL 06/10/2018 CBC 06/10/2018 CBC 04/18/2018 CK 04/18/2018 CK 06/10/2018 HEMOGLOBIN A1C 06/10/2018 HEMOGLOBIN A1C 04/18/2018 Insurance Providers Payer Name Payer Address Payer Phone Subscriber Number Group Number Insured Name Patient Relationship to Insured Coverage Start Date Coverage End Date [employer] [address] [place] [id number] Ladonna Szymanski Self - patient is the insured MEDICAL (GENERAL) HISTORY Medical History History ICD Code palpitations chest pain renal calculi obstructive sleep apnea vitamin D deficiency vitamin B deficiency uterine fibroids bipolar disorder anxiety and depression posttraumatic stress disorder obesity Surgical History Surgery Date(Month/Year) tonsillectomy tubal ligation lithotripsy for renal calculi
--- OUTSIDE RECORDS SUMMARY | 2024-12-25 13:50 | XMS_ITS | Clinical Summary ---
Author Organization [employer] [facility] Address [address] [place] [address] [address] [place] [address] Care Team Providers Care Office Services Representative Name Role Phone Unavailable Primary Care Provider [...] patient's age to complete this topic Insurance [facility] C3
== END ==
LOC: HO.CARD 11:32
DX: R00.2 Palpitations (principal)
CPT/HCPCS: 93242

== ENCOUNTER → 2024-12-25 11:34 | Outpatient (BNV) | payer OTHER, SELFPAY | PROVIDERS: Visit Provider Internal Medicine | DX: I47.10 Supraventricular tachycardia, unspecified (principal) | CPT/HCPCS: 93244 ==

== ENCOUNTER 2024-12-28 08:00 | Outpatient (REF) | payer OTHER, SELFPAY ==
--- NOTE | ~2024-12-28 | XR_ITS ---
CLINICAL HISTORY: M79.672 - Pain in left foot Left foot three views Comparison: None Findings: Nondisplaced oblique fracture 5th metatarsal. There is early callus formation at fracture site. No prior studies for comparison. No other acute bony abnormality. Degenerative change in multiple joints. No radiopaque foreign body noted. Impression: Oblique fracture 5th metatarsal This document has been electronically signed by: Arie Kirkland MD on 12/29/2024 18:34:04
--- OUTSIDE RECORDS SUMMARY | 2024-12-28 09:06 | XMS_ITS | Clinical Summary ---
Author Organization [employer] [facility] Address [address] [place] [address] [address] [place] [address] Care Team Providers Care Medical Radiation Dosimetrist Name Role Phone Unavailable Primary Care Provider [...] patient's age to complete this topic Insurance [facility] C3
== END 2024-12-28 08:01 | disposition home or self-care (01) ==
LOC: HO.HOSX 08:00
DX: E66.01 Morbid (severe) obesity due to excess calories (principal); Z68.43 Body mass index [BMI] 50.0-59.9, adult; D17.9 Benign lipomatous neoplasm, unspecified; R94.6 Abnormal results of thyroid function studies; J30.9 Allergic rhinitis, unspecified; I50.32 Chronic diastolic (congestive) heart failure; S92.352D Displaced fracture of fifth metatarsal bone, left foot, subsequent encounter for fracture with routine healing
CPT/HCPCS: 73630; 99212

== ENCOUNTER 2024-12-28 08:00 | Outpatient (AMB) | payer OTHER, SELFPAY ==
--- OUTSIDE RECORDS SUMMARY | 2024-12-28 08:06 | XMS_ITS | Clinical Summary ---
Author Organization [employer] [facility] Address [address] [place] [address] [address] [place] [address] Care Team Providers Care Tank Processor Name Role Phone Unavailable Primary Care Provider [...] patient's age to complete this topic Insurance [facility] C3
--- OUTSIDE RECORDS SUMMARY | 2024-12-28 08:06 | XMS_ITS | Patient Health Record ---
Author Organization [facility] Address [address] [place] [address] Care Team Providers Care Buyer Tobacco Head Name Role Phone Mustapha Godinez Primary Care [...] eeded Orally every 6 hrs Not-Taking Cholecalciferol 80410 UNIT Orally Not-Taking traMADol HCl 50 MG [...] Code Notes Problem Palpitations (R00.2) Active confirmed 32772019 Problem Impaired fasting glucose (R73.01) Active confirmed Impaired fasting glucose (568060137) Problem Tobacco use (Z72.0) Active confirmed Tobacco use (715357218) Problem Obesity (E66.9) Active confirmed 265799 001 Problem Anxiety (F41.9) Active confirmed 441369 02 Problem Chest pain (R07.9) Active confirmed 298 57702 Problem Obstructive sleep apnea (G47.33) Active confirmed 65134435 Problem Vitamin D deficiency (E55.9) Active confirmed 59144627 Problem Posttraumatic stress disorder (F43.10) Active confirmed 86344158 PLAN OF TREATMENT Pending Test Test Name [...] Date [employer] [address] [place] [id number] Ladonna Szymanski Self - patient is the insured MEDICAL (GENERAL) HISTORY Medical History History ICD Code palpitations chest pain renal calculi obstructive sleep apnea vitamin D deficiency vitamin B deficiency uterine fibroids bipolar disorder anxiety and depression posttraumatic stress disorder obesity Surgical History Surgery Date(Month/Year) tonsillectomy tubal ligation lithotripsy for renal calculi
--- NOTE | 2024-12-28 08:16 | MHC.PC.OV ---
Vital Signs 12/28/24 08:17 Height 5 ft 8 in Weight 383 lb 6 oz BMI 58.3 BP 130/72 Blood Pressure Location Lt brachial Position Sitting Pulse 69 Pulse Source Pulse Oximeter Temp 97.3 F Temp Source Temporal Artery Scan Pulse Oximetry (%) 96 Oxygen Delivery Method Room Air Intake Visit Reasons: obesity Intake Note: Patient is here to follow up on Obesity. Strategic Sourcing Consultant Required: Yes Strategic Sourcing Consultant Language: Manager Of Exhibitions And Collections Name: Jacques ([id number]) Rotary Shear Worker Helper: Not Required per policy Accompanied by: Self / Same As Patient Allergies morphine Allergy (Severe, Verified 12/28/24 08:29) Shortness of Breath Seasonal Allergies Allergy (Severe, Verified 12/28/24 08:29) Sneezing acetaminophen [From Percocet] Allergy (Intermediate, Verified 12/28/24 08:29) Rash latex [Latex] Allergy (Intermediate, Verified 12/28/24 08:29) ITCHY, RASH , AND FUNGUS oxycodone Allergy (Intermediate, Verified 12/28/24 08:29) Rash Medication List - Last Reconciled 12/28/24 by Kirstin Reyes PA-C albuterol sulfate 90 mcg/actuation (Proventil HFA) 2 puffs inhalation Q6H PRN cholecalciferol (vitamin D3) (Vitamin D3) 50 mcg (2 x 25 mcg (1,000 unit)) PO DAILY cyclobenzaprine 5 mg PO BEDTIME dicyclomine 20 mg PO TID docusate sodium (Colace) 100 mg PO BID 90 days fexofenadine 180 mg PO DAILY furosemide 60 mg (1.5 x 40 mg) PO DAILY hydrocodone-acetaminophen 5-325 mg 1 tab PO Q4-6H PRN ibuprofen 800 mg PO TID [Kneeling Scooter As directed] lidocaine 5% 1 patch topical DAILY mecobalamin (vitamin B12) 1,000 mcg subcut .once a week omeprazole 20 mg PO DAILY semaglutide (weight loss) (Wegovy) 0.5 mg (0.5 mL) subcut QWEEK sennosides (senna) 8.6 mg PO BEDTIME PRN Shower Chair As directed sucralfate (Carafate) 1 g PO BID PRN thiamine HCl (vitamin B1) 100 mg PO DAILY 90 days vitamin A palmitate 20,000 units PO DAILY 30 days Tobacco use date assessed: 12/28/24 Dental Screening Dental Screen Date: 11/24/24 HPI obesity HPI Details 54-year-old female with past medical history of obstructive sleep apnea, adjustment disorder, chronic heart failure last seen 12/04/2024 coming in for follow up.? In review of the notes, patient has been following with orthopedics for 5th metatarsal fracture.? She also was seen by General surgery for a chest lipoma scheduled to be excised. mortgage loan officer originator Jacques ([id number]) was used for the duration of this visit. Patient tells us today she was able to get the scooter from the pharmacy for the metatarsal fracture however was unable to use it due to her right wrist. She also could not tolerate the boot as it exacerbated her right knee pain. She does have continued concern of left hip pain and was scheduled to see pain management for an injection however was postponed due to carpal tunnel release surgery. [facility] Medical History Lipoma of chest wall Chronic diastolic (congestive) heart failure Anal fistula Sinus complaint Sterilization Kidney stone Acute appendicitis Vesicular dermatitis Enlarged lymph node Acute bacterial tonsillitis History of claustrophobia History of anxiety Hx of tendinitis Hx of bursitis History of knee problem Hx of chronic arthritis Family history of heart murmur History of asthma Surgical History History of hand surgery Hx of carpal tunnel repair H/O bilateral mastectomy History of kidney surgery Hx of tubal ligation Hx of tonsillectomy Hx of breast surgery Hx of appendectomy Hx of cholecystectomy Hx of knee surgery History of Achilles tendon repair Family History Mother Accelerated hypertension Arthritis Cancer of stomach Father Arthritis Sister No problems noted. Sister Arthritis Accelerated hypertension Sister No problems noted. Sister No problems noted. Brother Overdose Brother HIV disease Son Asthma Son No problems noted. Son No problems noted. Son No problems noted. Daughter No problems noted. Social History Housing: Apartment Alcohol intake: former Patient Tobacco Use Status: Former Tobacco user Tobacco use type: Cigarette Cigarettes Per Day: 1 Years Smoked: 30 e-Cigarette/Vaping Use: Never Used Second Hand Smoke Exposure: Yes service: No Current occupational status: unemployed Cognitive needs: Yes Hearing needs: No Vision needs: Yes Female Reproductive History Menstrual Age of Menarche: 14 Questionnaire Thrive Questionnaire Date Thrive assessed: 11/24/24 DANDY-7 AMB Questionnaire DANDY-7 Date DANDY - 7 assessed: 11/24/24 Source: Developed by Drs. Gonzalez Merida, Jenn Kramer, Matthew Jimenez and colleagues, with an educational honorio from [employer]. Review of Systems Const Denies body aches, Denies chills, Denies fever(s), Denies headache(s) and Denies poor appetite Eyes Reports no additional complaints ENT Denies dysphagia, Denies dizziness, Denies headache(s) and Denies odynophagia Card Denies chest pain, Denies syncope, Denies edema, Denies irregular heart rhythm, Denies lightheadedness and Denies dyspnea Resp Denies cough and Denies dyspnea GI Denies abdominal pain, Denies constipation, Denies dysphagia, Denies diarrhea, Denies nausea, Denies odynophagia and Denies vomiting Reports no additional complaints Musc Reports no additional complaints and Denies abnormal gait Skin/Breast Reports system reviewed and no additional complaints, except as documented Neuro Denies abnormal gait, Denies dizziness, Denies syncope and Denies headache(s) Psych Reports no additional complaints Physical exam (Primary Care) Vital Signs: Last Vital Signs Temp 97.3 F 12/28/24 08:17 Pulse 69 12/28/24 08:17 BP 130/72 12/28/24 08:17 Pulse Ox 96 12/28/24 08:17 Oxygen Delivery Method Room Air 12/28/24 08:17 BMI result Body Mass Index 58.3 Tobacco/Smoking Status: Tobacco use Status Tobacco use date assessed 12/28/24 12/28/24 08:21 Patient Tobacco Use Status Former Tobacco user 12/28/24 08:21 Tobacco use type Cigarette 12/28/24 08:21 e-Cigarette/Vaping Use Never Used 12/28/24 08:21 Thrive Assessment: Date of Thrive Assessment Date Thrive assessed 11/24/24 12/28/24 08:21 Const General: cooperative, healthy appearing, comfortable and no acute distress Orientation/consciousness: patient oriented x3 HENMT Head: Yes normocephalic Ears: hearing grossly normal bilaterally General nose exam: Normal external nose present Eyes General: appearance normal, both eyes and all related structures Conjunctivae: conjunctivae normal Neck Neck: Yes full ROM and Yes no lymphadenopathy Resp Effort & Inspection: normal respiratory effort Auscultation: clear to auscultation bilaterally, no crackles, no rales, no rhonchi and no wheezes Cardio Rate: regular rate Rhythm: regular rhythm Skin General skin exam: no rashes or lesions noted Neuro General: patient oriented x3 Gait exam (Neuro): Normal gait present Extrem General: Yes normal to inspection, Yes full ROM and No edema Psych Affect: normal affect Attitude: cooperative Insight: Good insight present (Psych) Judgement: Good judgement present (Psych) Coding Level of Care Code Est Pt Level 3 (65700) Diagnoses Lipoma D17.9 Morbid obesity E66.01 Fracture of fifth metatarsal bone S92.353A Elevated TSH R79.89 Allergic rhinitis J30.9 Chronic diastolic (congestive) heart failure I50.32 Assessment & Plan Assessment & Plan (1) Lipoma: Code(s): D17.9 - Benign lipomatous neoplasm, unspecified Category: Medical Plan: Currently following with General surgery planned to have an excision in the next few weeks. (2) Morbid obesity: Code(s): E66.01 - Morbid (severe) obesity due to excess calories Category: Medical Plan: Continue to follow with weight management. Healthy diet and regular exercise is encouraged. (3) Fracture of fifth metatarsal bone: Code(s): S92.353A - Displaced fracture of fifth metatarsal bone, unspecified foot, initial encounter for closed fracture Category: Medical Plan: Prescription sent for push scooter as patient can not use crutches due to recent hand surgery but she found she was unable to use the scooter as well. Continue to follow with orthopedics for management of fracture. May use Tylenol as needed for pain and cyclobenzaprine for nighttime pain. Seeing orthopedics today (4) Elevated TSH: Code(s): R79.89 - Other specified abnormal findings of blood chemistry Category: Medical Plan: Plan to repeat TSH this week consider referral to endocrinology. (5) Allergic rhinitis: Code(s): J30.9 - Allergic rhinitis, unspecified Category: Medical Plan: Patient requesting counterperson referral due to allergic rhinitis. Referral placed today. (6) Chronic diastolic (congestive) heart failure: Comment: Coronary CTA 12/09/2024 Impression: 1. No evidence of hemodynamically significant coronary artery disease. 2. Minimal stenosis due to noncalcified plaque versus artifact mild RCA. 3. Mild stenosis in the mid LAD approximately 25% due to superficial myocardial bridge. Code(s): I50.32 - Chronic diastolic (congestive) heart failure Category: Medical Plan: Continue to follow with Cardiology has a appointment coming up in January. Plan We reviewed her vaccines as she is mostly up-to-date however she is due for tetanus. Our office is out of the TD vaccine and plan to reach out when in his back in stock. Patient was informed and verbally consented to the use of an ambient scribe for clinic note documentation during this visit. This note was constructed using voice recognition software. While every effort has been made to ensure accuracy and surg nurse, still areas may have been included sometimes these areas may affect the content or meeting of the given symptoms. Total time spent caring for the patient today was 20 minutes. This includes time spent before the visit reviewing the chart, time spent during the visit, and time spent after the visit and documentation. Orders: Referrals Allergy & Immunology Referral J30.9 - Allergic rhinitis, unspecified
[2024-12-28 08:17] VITALS: BP 130/72; PULSE 69; TEMP 36.3; O2SAT 96; BMI 58.3
== END 2024-12-28 08:54 | disposition home or self-care (01) ==
DX: D17.9 Benign lipomatous neoplasm, unspecified (principal); E66.01 Morbid (severe) obesity due to excess calories; I50.32 Chronic diastolic (congestive) heart failure; Z68.43 Body mass index [BMI] 50.0-59.9, adult; S92.353A Displaced fracture of fifth metatarsal bone, unspecified foot, initial encounter for closed fracture; R79.89 Other specified abnormal findings of blood chemistry; J30.9 Allergic rhinitis, unspecified

== ENCOUNTER 2024-12-28 14:12 | Outpatient (AMB) | payer OTHER, SELFPAY ==
[2024-12-28 14:16] VITALS: BMI 58.2
--- NOTE | 2024-12-28 14:16 | MHC.OFFVIS ---
Vital Signs 12/28/24 14:16 Height 5 ft 8 in Weight 383 lb BMI 58.2 Intake Visit Reasons: OV-LT foot 5th metatarsal fx-w/xrays Intake Note: Ladonna is a 54 year old female who presents today for a follow up visit for her left 5th metatarsal shaft fracture, DOI: 11/30/2024. Patient reports she has not been using the post op shoe due to injuring her right knee. She states it was making it harder and painful for her to walk. She reports no concerns today. Virtualization Engineer Required: Yes Virtualization Engineer Language: Donor Processor Services: Virtualization Engineer Present Virtualization Engineer Name: RITA Salcedo/NEMESIO Information Interpreted: clinical only Allergies morphine Allergy (Severe, Verified 12/28/24 14:28) Shortness of Breath Seasonal Allergies Allergy (Severe, Verified 12/28/24 14:28) Sneezing acetaminophen [From Percocet] Allergy (Intermediate, Verified 12/28/24 14:28) Rash latex [Latex] Allergy (Intermediate, Verified 12/28/24 14:28) ITCHY, RASH , AND FUNGUS oxycodone Allergy (Intermediate, Verified 12/28/24 14:28) Rash HPI HPI OV-LT foot 5th metatarsal fx-w/xrays: Details: Ladonna is a 54 year old female who presents today for a follow up visit for her left 5th metatarsal shaft fracture, DOI: 11/30/2024. Patient reports she has not been using the post op shoe due to injuring her right knee. She states it was making it harder and painful for her to walk. She reports no concerns today. [facility] Medical History Lipoma of chest wall Chronic diastolic (congestive) heart failure Anal fistula Sinus complaint Sterilization Kidney stone Acute appendicitis Vesicular dermatitis Enlarged lymph node Acute bacterial tonsillitis History of claustrophobia History of anxiety Hx of tendinitis Hx of bursitis History of knee problem Hx of chronic arthritis Family history of heart murmur History of asthma Surgical History History of hand surgery Hx of carpal tunnel repair H/O bilateral mastectomy History of kidney surgery Hx of tubal ligation Hx of tonsillectomy Hx of breast surgery Hx of appendectomy Hx of cholecystectomy Hx of knee surgery History of Achilles tendon repair Family History Mother Accelerated hypertension Arthritis Cancer of stomach Father Arthritis Sister No problems noted. Sister Arthritis Accelerated hypertension Sister No problems noted. Sister No problems noted. Brother Overdose Brother HIV disease Son Asthma Son No problems noted. Son No problems noted. Son No problems noted. Daughter No problems noted. Social History Housing: Apartment Alcohol intake: former Patient Tobacco Use Status: Former Tobacco user Tobacco use type: Cigarette Cigarettes Per Day: 1 Years Smoked: 30 e-Cigarette/Vaping Use: Never Used Second Hand Smoke Exposure: Yes service: No Current occupational status: unemployed Cognitive needs: Yes Hearing needs: No Vision needs: Yes Female Reproductive History Menstrual Age of Menarche: 14 Review of Systems Const All systems reviewed & are unremarkable except as noted in HPI and below Physical Exam Vital Signs: BMI result Body Mass Index 58.2 Extrem Other: Patient's left foot slightly edematous otherwise normal to inspection No erythema noted No lacerations, abrasions, open areas No evidence of infection Patient reports mild tenderness to palpation of the lateral aspect of the left foot at the level of the fracture of the 5th metatarsal No other tenderness to palpation of the left foot noted Distal sensation intact Capillary refill brisk Results Reviewed Results Reviewed: X-rays obtained in the office today and independently reviewed by me, Wiliam Devi PA-C, demonstrate minimally displaced fracture of the 5th metatarsal shaft of the left foot with evidence of interval bony healing. Assessment & Plan Assessment & Plan (1) Fracture of fifth metatarsal bone: Code(s): S92.353A - Displaced fracture of fifth metatarsal bone, unspecified foot, initial encounter for closed fracture Category: Medical Plan 1. Left 5th metatarsal shaft fracture Date of injury 11/30/2024 Patient is educated about this injury Patient is educated about the typical recovery course At this time, patient was educated that she can continue to weightbear in supportive footwear Patient was advised that she no longer needs to wear the postop shoe Patient will follow-up in 4 weeks with repeat x-rays for reassessment, sooner with any acute concerns Orders: Orders XR foot LT min 3V Today M79.672 - Pain in left foot Coding Level of Care Code Global (31203) Diagnoses Fracture of fifth metatarsal bone S92.353A
--- OUTSIDE RECORDS SUMMARY | 2024-12-28 17:02 | XMS_ITS | Clinical Summary ---
Author Organization [employer] [facility] Address [address] [place] [address] [address] [place] [address] Care Team Providers Care Clutch Mechanic Name Role Phone Unavailable Primary Care Provider [...] patient's age to complete this topic Insurance [facility] C3
== END 2024-12-28 14:46 | disposition home or self-care (01) ==
DX: S92.353A Displaced fracture of fifth metatarsal bone, unspecified foot, initial encounter for closed fracture (principal)
CPT/HCPCS: 99024

== ENCOUNTER → 2024-12-28 14:17 | Outpatient (BNV) | payer OTHER, SELFPAY | PROVIDERS: Visit Provider Radiology Diagnostic Radiology | DX: S92.352A Displaced fracture of fifth metatarsal bone, left foot, initial encounter for closed fracture (principal) | CPT/HCPCS: 73630 ==

== ENCOUNTER 2024-12-29 11:24 | Outpatient (REF) | payer OTHER, SELFPAY ==
--- NOTE | ~2024-12-29 | MM_ITS ---
EXAMINATION: MM DIAGNOSTIC DIGITAL BREAST TOMOSYNTHESIS, BILATERAL Limited left breast ultrasound. CLINICAL INFORMATION: Left breast pain. Follow-up for left breast calcifications initial magnification views were May 2023. COMPARISON: Mammography: Comparison is made with relevant prior exams. TECHNIQUE: Digital breast mammography with tomosynthesis is performed in both the craniocaudal and mediolateral oblique views along with computer-aided detection (CAD). FINDINGS: The breasts are heterogeneously dense, which may obscure small masses (ACR BI-RADS breast composition Category c). Right: There are no significant masses, abnormal calcifications, or other abnormalities. Left: Diffusely scattered punctate calcifications in the upper inner left breast are not significantly changed from prior magnification views dating back to May 2023. Triangular marker in the upper outer breast without underlying abnormality. No suspicious masses or other abnormal findings. Targeted color Doppler ultrasound scanning in the area the patient's pain from 12 5:00 demonstrates normal fibronodular breast tissue. Results are provided to the patient at time of visit by the technologist. MM/MM tomosynthesis diagnostic BI IMPRESSION: Right: Negative. Left: 1. Diffusely scattered punctate calcifications in the upper inner left breast not significantly changed dating back to May 2023. Recommend diagnostic follow-up in one year with magnification views to demonstrate 2 years of stability. 2. No mammographic or sonographic abnormality to account for the patient's left breast pain. Recommend clinical evaluation and follow-up. ASSESSMENT: BI-RADS BI-RADS 3 - Probably benign finding(s) - 12 month follow-up suggested RECOMMENDATION: 12 month diagnostic follow up This patient's information was entered into a reminder system with a target due date for their next mammogram. Electronically signed by: Brigette Corral DO 12/29/2024 12:33 PM [facility]
--- OUTSIDE RECORDS SUMMARY | 2024-12-29 14:24 | XMS_ITS | Patient Health Record ---
Author Organization [facility] Address [address] [place] [address] Care Team Providers Care Project Management Engineer Name Role Phone Mustapha Godinez Primary Care Provider Unavailab Massimo Fagan Unavailable [phone] ALLERGIES Allergen (clinical drug ingredient) Drug/Non Drug [...] eeded Orally every 6 hrs Not-Taking Cholecalciferol 38460 UNIT Orally Not-Taking traMADol HCl 50 MG [...] Code Notes Problem Palpitations (R00.2) Active confirmed 35558829 Problem Impaired fasting glucose (R73.01) Active confirmed Impaired fasting glucose (954904399) Problem Tobacco use (Z72.0) Active confirmed Tobacco use (170604440) Problem Obesity (E66.9) Active confirmed 853034 001 Problem Anxiety (F41.9) Active confirmed 943860 02 Problem Chest pain (R07.9) Active confirmed 298 89521 Problem Obstructive sleep apnea (G47.33) Active confirmed 83639273 Problem Vitamin D deficiency (E55.9) Active confirmed 69615017 Problem Posttraumatic stress disorder (F43.10) Active confirmed 47481080 PLAN OF TREATMENT Pending Test Test Name [...] HEALTH MEDICAID [address] [place] Crisostomo [id number] Ladonna Szymanski Self - patient is the insured MEDICAL (GENERAL) HISTORY Medical History History ICD Code palpitations chest pain renal calculi obstructive sleep apnea vitamin D deficiency vitamin B deficiency uterine fibroids bipolar disorder anxiety and depression posttraumatic stress disorder obesity Surgical History Surgery Date(Month/Year) tonsillectomy tubal ligation lithotripsy for renal calculi
--- OUTSIDE RECORDS SUMMARY | 2024-12-29 14:25 | XMS_ITS | Clinical Summary ---
Author Organization [employer] [facility] Address [address] [place] [address] [address] [place] [address] Care Team Providers Care Potato Chip Fryer Name Role Phone Unavailable Primary Care Provider [...] patient's age to complete this topic Insurance [facility] C3
== END 2024-12-29 11:25 | disposition home or self-care (01) ==
LOC: HO.MAMMO 11:24
DX: N64.4 Mastodynia (principal)
CPT/HCPCS: 76642; 77062; 77066

== ENCOUNTER → 2024-12-29 11:30 | Outpatient (BNV) | payer OTHER, SELFPAY | PROVIDERS: Visit Provider Internal Medicine | DX: R92.1 Mammographic calcification found on diagnostic imaging of breast (principal) | CPT/HCPCS: 76642 ==

== ENCOUNTER 2025-01-02 20:28 | Emergency (ER) | payer OTHER, SELFPAY ==
[2025-01-02 20:51] VITALS: BP 156/94; PULSE 91; RESP 20; TEMP 36.8; O2SAT 98; BMI 55.2
--- NOTE | 2025-01-02 21:02 | ECG_ITS ---
Test Reason : ABD PAIN Blood Pressure : */* mmHG Vent. Rate : 90 BPM Atrial Rate : 90 BPM P-R Int : 144 ms QRS Dur : 92 ms QT Int : 358 ms P-R-T Axes : 47 53 33 degrees QTcB Int : 437 ms Normal sinus rhythm Minimal voltage criteria for LVH, may be normal variant ( Sokolow-Limon ) Borderline ECG When compared with ECG of 02-Sep-2024 16:04, No significant change was found Referred By: Generic ED Physician Electronically Signed By: LIBAN SCHAEFER MD
[2025-01-02 21:23] LABS: Basophils Percent Auto 0.2 % (0-2); Eosinophils Absolute Auto 0.1 X10*3/uL (0.0-0.4); Eosinophils Percent Auto 0.5 % (0-4); Hematocrit 40.4 % (37.0-47.0); Hemoglobin 13.1 g/dl (12.0-16.0); Imm Gran Abs Auto 0.03 X10*3/uL (0.00-0.03); Imm Gran Pct Auto 0.3 % (0.0-0.4); Lymphocytes Absolute Auto 0.8 X10*3/uL (1.2-4.9); Lymphocytes Percent Auto 7.4 % (20-40); MANUAL DIFF FLAG NO; Mean Corpuscular HGB Conc 32.4 g/dl (31.0-35.0); Mean Corpuscular Hemoglobin 28.7 pg (27.0-33.0); Mean Corpuscular Volume 88.6 fL (80.0-98.0); Mean Platelet Volume 9.4 fL (9.4-12.3); Monocytes Absolute Auto 0.6 X10*3/uL (0.1-1.2); Monocytes Percent Auto 5.6 % (2-11); Neutrophils Absolute Auto 9.5 x10*3/uL (2.0-8.3); Platelet Count 255 X10*3/uL (160-400); Red Blood Count 4.56 X10*6/uL (4.20-5.50); Red Cell Distribution Width 12.4 % (11.0-16.0)
[2025-01-02 21:39] LABS: Alanine Aminotransferase 23 U/L (0-31); Albumin Level 4.3 g/dL (3.5-5.0); Alkaline Phosphatase 143 U/L (39-117); Anion Gap 11 (12-20); Aspartate Amino Transferase 21 U/L (5-31); Bilirubin Total 0.4 mg/dL (0.0-1.0); Blood Urea Nitrogen 18 mg/dL (9-16); Calcium 9.1 mg/dL (8.4-10.2); Carbon Dioxide 27 mmol/L (22-29); Chloride 106 mmol/L (96-108); Creatinine Clr Calc Pharmacy 183.2; Estimated Glomerular Filt Rate > 60; Glucose Random 111 mg/dL (60-115); Lipase 10 U/L (8-78); Potassium 4.6 mmol/L (3.3-5.1); Sodium 139 mmol/L (135-145); Total Protein 8.2 g/dL (6.5-8.0)
[2025-01-02 21:46] LABS: Troponin-I High Sensitivity < 2.7 ng/L (<3.5-17.0)
[2025-01-02 22:01] LABS: Influenza A PCR NEGATIVE (Negative); Influenza B PCR NEGATIVE (Negative); Resp Syncy Virus RNA Qual PCR NEGATIVE (Negative); SARS COV2 PCR INHOUSE NEGATIVE (Negative)
[2025-01-03 01:18] VITALS: BP 160/75; PULSE 95; RESP 16; TEMP 37.6; O2SAT 98
[2025-01-03] MEDS: 0.9 % Sodium Chloride 1,000 ML 999 ML IV (01:42)
[2025-01-03] MEDS: ondansetron HCL 4 MG/2 ML VIAL IVPUSH (01:42)
--- NOTE | 2025-01-03 01:55 | ED.NAVMDI ---
HPI - Nausea/Vomiting/Diarrhea General Chief complaint: Nausea/Vomiting/Diarrhea Stated complaint: vomiting/abd pain/bone pain Time Seen by Provider: 01/03/25 01:33 Source: patient Mode of arrival: ambulatory Limitations: no limitations History of Present Illness ED Provider: HPI Narrative: Patient has been having nausea vomiting and diarrhea today event 5 episodes of each no fever having chills does feel weak diffuse abdominal cramps body no respiratory symptoms Related Data Home Medications ?Medication ?Instructions ?Recorded ?Confirmed ibuprofen 800 mg tablet 800 mg PO TID 03/31/21 12/28/24 omeprazole 20 mg capsule,delayed 20 mg PO DAILY 06/17/24 12/28/24 release lidocaine 5 % topical patch 1 patch topical DAILY 06/24/24 12/28/24 mecobalamin (vitamin B12) 10,000 1,000 mcg subcut .once a week 06/24/24 12/28/24 mcg solution for injection Previous Rx's ?Medication ?Instructions ?Recorded dicyclomine 20 mg tablet 20 mg PO TID #20 tabs 06/11/24 albuterol sulfate 90 mcg/actuation 2 puff inhalation Q6H PRN 07/20/24 aerosol inhaler (Proventil HFA) shortness of breath or wheezing #6.7 grams cholecalciferol (vitamin D3) 25 50 mcg (2 x 25 mcg (1,000 unit)) 07/20/24 mcg (1,000 unit) capsule (Vitamin PO DAILY #30 caps D3) fexofenadine 180 mg tablet 180 mg PO DAILY #30 tabs 07/20/24 vitamin A palmitate 3,000 mcg 20,000 unit PO DAILY 30 days #60 07/20/24 (10,000 unit) tablet tabs thiamine HCl (vitamin B1) 100 mg 100 mg PO DAILY 90 days #90 tabs 07/31/24 tablet docusate sodium 100 mg capsule 100 mg PO BID 90 days #180 caps 08/13/24 (Colace) sucralfate 1 gram tablet (Carafate) 1 g PO BID PRN acid reflux #14 tabs 09/03/24 Shower Chair #1 ea 09/09/24 semaglutide (weight loss) 0.5 0.5 mg (0.5 mL) subcut QWEEK #2 mL 10/01/24 mg/0.5 mL subcutaneous pen injector (Wegovy) hydrocodone 5 mg-acetaminophen 325 1 tab PO Q4-6H PRN pain #5 tabs 1223/24 mg tablet furosemide 40 mg tablet 60 mg (1.5 x 40 mg) PO DAILY #135 11/24/24 tabs Kneeling Scooter #1 ea 12/04/24 cyclobenzaprine 5 mg tablet 5 mg PO BEDTIME #10 tabs 12/04/24 sennosides 8.6 mg capsule (senna) 8.6 mg PO BEDTIME PRN constipation 12/16/24 #30 caps ondansetron 4 mg disintegrating 4 mg PO Q6-8H PRN nausea and 01/03/25 tablet vomiting #10 tabs Allergies Allergy/AdvReac Type Severity Reaction Status Date / Time morphine Allergy Severe Shortness Verified 01/02/25 20:51 of Breath Seasonal Allergies Allergy Severe Sneezing Verified 01/02/25 20:51 acetaminophen [From Percocet] Allergy Intermediate Rash Verified 01/02/25 20:51 latex [Latex] Allergy Intermediate ITCHY, Verified 01/02/25 20:51 RASH , AND FUNGUS oxycodone Allergy Intermediate Rash Verified 01/02/25 20:51 Review of Systems Review of Systems: Yes all other systems are reviewed and are negative PMFSH Past Medical History Medical History Lipoma of chest wall Chronic diastolic (congestive) heart failure Anal fistula Sinus complaint Sterilization Kidney stone Acute appendicitis Vesicular dermatitis Enlarged lymph node Acute bacterial tonsillitis History of claustrophobia History of anxiety Hx of tendinitis Hx of bursitis History of knee problem Hx of chronic arthritis Family history of heart murmur History of asthma Surgical History History of hand surgery Hx of carpal tunnel repair H/O bilateral mastectomy History of kidney surgery Hx of tubal ligation Hx of tonsillectomy Hx of breast surgery Hx of appendectomy Hx of cholecystectomy Hx of knee surgery History of Achilles tendon repair Family History Family History Mother Accelerated hypertension Arthritis Cancer of stomach Father Arthritis Sister No problems noted. Sister Arthritis Accelerated hypertension Sister No problems noted. Sister No problems noted. Brother Overdose Brother HIV disease Son Asthma Son No problems noted. Son No problems noted. Son No problems noted. Daughter No problems noted. Social History Social History Housing: Apartment Alcohol intake: former Patient Tobacco Use Status: Former Tobacco user Tobacco use type: Cigarette Cigarettes Per Day: 1 Years Smoked: 30 Smoked in Last 30 Days: No e-Cigarette/Vaping Use: Never Used Second Hand Smoke Exposure: Yes Use of substances other than those prescribed or required for medical reasons: No Advance Directives: No Advance Directives Information Provided: Yes Do you have a plan to hurt others: No Plan Patient : No service: No Current occupational status: unemployed Cognitive needs: Yes Hearing needs: No Vision needs: Yes Physical Exam Vital Signs: Vital Signs: Last Vital Signs Temp 97.8 F 01/03/25 07:00 Pulse 87 01/03/25 07:00 Resp 22 H 01/03/25 07:00 BP 150/71 H 01/03/25 07:00 Pulse Ox 95 01/03/25 07:00 O2 Del Method Room Air 01/03/25 07:00 BMI result Body Mass Index 55.2 Appearance: Alert. Oriented X3. No acute distress. Eyes: No pallor or icterus ENT: Pharynx normal. Oral Mucosa moist Neck: Normal inspection. Neck supple. CVS: Normal heart rate and rhythm. Pulses normal. Respiratory: No respiratory distress. Equal air entry bilateral, no wheezing/rales/rhonchi Abdomen: Soft and nontender. Bowel sounds are present, no mass palpable, no CVA tenderness Skin: Skin warm and dry. Normal skin color. Normal skin turgor. Extremities: No lower extremity edema. No calf tenderness Neuro: Oriented X 3. No motor deficit. Medications Administered Discontinued Medications Generic Name Dose Route Start Last Admin Trade Name Freq PRN Reason Stop Dose Admin Sodium Chloride 1,000 mls @ 999 mls/hr 01/03/25 01:33 01/03/25 04:08 Ns IV 01/03/25 03:33 Infused .Q1H1M ONE Infusion Ondansetron HCl 4 mg 01/03/25 01:33 01/03/25 01:42 Ondansetron Hcl 4 Mg/2 Ml Vial IVPUSH 01/03/25 01:34 4 mg ONCE ONE Administration Medical Decision Making Medical Decision Making [facility] Narrative: Patient with acute viral gastroenteritis feeling much better after stay in the ER taking p.o. fluids will discharge patient Lab Data [facility] Lab Attestation statement: I reviewed the patient's lab results. 01/02/25 21:17 01/02/25 21:17 Labs: Lab Results 01/02/25 01/03/25 Range/Units 21:17 04:21 WBC 11.0 H (4.8-10.8) X10*3/uL RBC 4.56 (4.20-5.50) X10*6/uL Hgb 13.1 (12.0-16.0) g/dl Hct 40.4 (37.0-47.0) % MCV 88.6 (80.0-98.0) fL MCH 28.7 (27.0-33.0) pg MCHC 32.4 (31.0-35.0) g/dl RDW 12.4 (11.0-16.0) % Plt Count 255 (160-400) X10*3/uL MPV 9.4 (9.4-12.3) fL Immature Gran % (Auto) 0.3 (0.0-0.4) % Neut % (Auto) 86.0 H (45-73) % Lymph % (Auto) 7.4 L (20-40) % [place] % (Auto) 5.6 (2-11) % Eos % (Auto) 0.5 (0-4) % Baso % (Auto) 0.2 (0-2) % Lymph # (Auto) 0.8 L (1.2-4.9) X10*3/uL [place] # (Auto) 0.6 (0.1-1.2) X10*3/uL Eos # (Auto) 0.1 (0.0-0.4) X10*3/uL Baso # (Auto) 0.0 (0.0-0.2) X10*3/uL Abs Immat Gran (auto) 0.03 (0.00-0.03) X10*3/uL Absolute Neuts (auto) 9.5 H (2.0-8.3) x10*3/uL Absolute Nucleated RBC 0.000 (0.0-0.012) X10*3/uL Nucleated RBC % (auto) 0.0 (0.0-0.2) /100WBC Sodium 139 (135-145) mmol/L Potassium 4.6 (3.3-5.1) mmol/L Chloride 106 (96-108) mmol/L Carbon Dioxide 27 (22-29) mmol/L Anion Gap 11 L (12-20) BUN 18 H (9-16) mg/dL Creatinine 0.61 (0.5-1.4) mg/dL Estim Creat Clear Calc 183.2 Estimated GFR > 60 Random Glucose 111 (60-115) mg/dL Calcium 9.1 (8.4-10.2) mg/dL Total Bilirubin 0.4 (0.0-1.0) mg/dL AST 21 (5-31) U/L ALT 23 (0-31) U/L Alkaline Phosphatase 143 H (39-117) U/L Troponin I High Sens < 2.7 (<3.5-17.0) ng/L Total Protein 8.2 H (6.5-8.0) g/dL Albumin 4.3 (3.5-5.0) g/dL Lipase 10 (8-78) U/L Urine Color Yellow Urine Appearance Clear Urine pH 5.5 (5.0-9.0) Ur Specific [place] 1.015 (1.005-1.025) Urine Protein Negative (Neg-Trace) mg/dL Urine Glucose (UA) Negative (Negative) mg/dL Urine Ketones Negative (Negative) mg/dL Urine Blood Negative (Negative) Urine Nitrite Negative (Negative) Ur Leukocyte Esterase Negative (Negative) Influenza Type A (PCR) NEGATIVE (Negative) Influenza Type B (PCR) NEGATIVE (Negative) RSV RNA Qual (PCR) NEGATIVE (Negative) SARS-CoV-2 RNA (RT-PCR) NEGATIVE (Negative) Discharge Plan Discharge Clinical Impression: Viral gastroenteritis Patient Disposition: Home, Self-Care Instructions: Acute Nausea and Vomiting (ED), Acute Diarrhea (ED) Additional Instructions: Drink plenty of fluid Medicine for nausea as prescribed Likely have viral etiology as the cause of your symptoms Prescriptions: New ondansetron 4 mg tablet,disintegrating 4 mg PO Q6-8H PRN (Reason: nausea and vomiting) Qty: 10 0RF No Action thiamine HCl (vitamin B1) 100 mg tablet 100 mg PO DAILY 90 Days Qty: 90 1RF docusate sodium [Colace] 100 mg capsule 100 mg PO BID 90 Days Qty: 180 0RF (DME) Shower Chair Misc See Rx Instructions .Route Qty: 1 0RF Rx Instructions: As directed Wegovy 0.5 mg/0.5 mL pen injector 0.5 mg subcut QWEEK Qty: 2 0RF Rx Instructions: administer weeks 5 through 8 of therapy senna 8.6 mg capsule 8.6 mg PO BEDTIME PRN (Reason: constipation) Qty: 30 0RF dicyclomine 20 mg tablet 20 mg PO TID Qty: 20 0RF hydrocodone-acetaminophen 5-325 mg tablet 1 tab PO Q4-6H PRN (Reason: pain) Qty: 5 0RF Rx Instructions: Partial Fill upon patient request. sucralfate [Carafate] 1 gram tablet 1 g PO BID PRN (Reason: acid reflux) Qty: 14 0RF omeprazole 20 mg capsule,delayed release(DR/EC) 20 mg PO DAILY ibuprofen 800 mg tablet 800 mg PO TID lidocaine 5 % adhesive patch,medicated 1 patch topical DAILY Rx Instructions: leave on most painful area for up to 12 hrs mecobalamin (vitamin B12) 10,000 mcg recon soln 1,000 mcg subcut .once a week albuterol sulfate [Proventil HFA] 90 mcg/actuation HFA aerosol inhaler 2 puff inhalation Q6H PRN (Reason: shortness of breath or wheezing) Qty: 6.7 0RF cholecalciferol (vitamin D3) [Vitamin D3] 25 mcg (1,000 unit) capsule 50 mcg PO DAILY Qty: 30 3RF fexofenadine 180 mg tablet 180 mg PO DAILY Qty: 30 3RF vitamin A palmitate 3,000 mcg (10,000 unit) tablet 20,000 unit PO DAILY 30 Days Qty: 60 0RF furosemide 40 mg tablet 60 mg PO DAILY Qty: 135 1RF cyclobenzaprine 5 mg tablet 5 mg PO BEDTIME Qty: 10 0RF (DME) Kneeling Scooter See Rx Instructions .ROUTE .MEDSUPPLY Qty: 1 0RF Rx Instructions: As directed Interventions: ED Discharge Assessment Last Done: 01/03/25 07:00 Discharge Date/Time: 01/03/25 07:03 Print Language: Bermudian
[2025-01-03 04:08] VITALS: BP 131/60; PULSE 92; RESP 19; TEMP 37.3; O2SAT 95
[2025-01-03 04:27] LABS: Appearance Urine Clear; Color Urine Yellow; Glucose Urine UA Negative (Negative); Leukocyte Esterase Urine Negative (Negative); Nitrite Urine Negative (Negative); PH 5.5 (5.0-9.0); Specific Gravity - Urine 1.015 (1.005-1.025); Urine Blood Negative (Negative); Urine Ketones Negative (Negative); Urine Protein Negative (Neg-Trace)
[2025-01-03 07:00] VITALS: BP 150/71; PULSE 87; RESP 22; TEMP 36.6; O2SAT 95
== END 2025-01-03 07:03 | disposition home or self-care (01) ==
PROVIDERS: Emergency Provider Internal Medicine
DX: A08.4 Viral intestinal infection, unspecified (principal); R11.2 Nausea with vomiting, unspecified; R10.2 Pelvic and perineal pain; M79.10 Myalgia, unspecified site; R94.31 Abnormal electrocardiogram [ECG] [EKG]; Z87.891 Personal history of nicotine dependence; Z03.818 Encounter for observation for suspected exposure to other biological agents ruled out; Z79.899 Other long term (current) drug therapy
CPT/HCPCS: 0241U; 36415; 80053; 81003; 83690; 84484; 85025; 93005; 96361; 96374; 99284; 99285; J2405

== ENCOUNTER → 2025-01-02 21:02 | Outpatient (BNV) | payer OTHER, SELFPAY | PROVIDERS: Emergency Provider Internal Medicine; Visit Provider Internal Medicine Cardiovascular Disease | DX: R94.31 Abnormal electrocardiogram [ECG] [EKG] (principal); R10.9 Unspecified abdominal pain | CPT/HCPCS: 93010 ==

== ENCOUNTER 2025-01-19 06:18 | Outpatient (REF) | payer OTHER, SELFPAY | END 2025-01-19 06:19 | disposition home or self-care (01) | LOC: CF 06:18 | PROVIDERS: Visit Provider Anesthesiology | DX: M79.18 Myalgia, other site (principal); M70.62 Trochanteric bursitis, left hip | CPT/HCPCS: 20552; 20610; J2795; J3301 ==

== ENCOUNTER 2025-01-19 10:04 | Outpatient (AMB) | payer OTHER, SELFPAY ==
--- NOTE | 2025-01-19 10:19 | MHC.OFFVIS ---
Vital Signs 01/19/25 10:38 01/19/25 10:39 BP 186/77 H 188/81 H Blood Pressure Location Lt brachial Lt brachial Position Sitting Sitting Pulse 69 61 Pulse Source Pulse Oximeter Pulse Oximeter Pulse Oximetry (%) 98 98 Oxygen Delivery Method Room Air Room Air Comment Pre-procedure Post-procedure Intake Visit Reasons: LEFT GTB INJECTION AND LEFT LUMBAR TPI Allergies morphine Allergy (Severe, Verified 01/02/25 20:51) Shortness of Breath Seasonal Allergies Allergy (Severe, Verified 01/02/25 20:51) Sneezing acetaminophen [From Percocet] Allergy (Intermediate, Verified 01/02/25 20:51) Rash latex [Latex] Allergy (Intermediate, Verified 01/02/25 20:51) ITCHY, RASH , AND FUNGUS oxycodone Allergy (Intermediate, Verified 01/02/25 20:51) Rash PFSH Medical History Lipoma of chest wall Chronic diastolic (congestive) heart failure Anal fistula Sinus complaint Sterilization Kidney stone Acute appendicitis Vesicular dermatitis Enlarged lymph node Acute bacterial tonsillitis History of claustrophobia History of anxiety Hx of tendinitis Hx of bursitis History of knee problem Hx of chronic arthritis Family history of heart murmur History of asthma Surgical History History of hand surgery Hx of carpal tunnel repair H/O bilateral mastectomy History of kidney surgery Hx of tubal ligation Hx of tonsillectomy Hx of breast surgery Hx of appendectomy Hx of cholecystectomy Hx of knee surgery History of Achilles tendon repair Family History Mother Accelerated hypertension Arthritis Cancer of stomach Father Arthritis Sister No problems noted. Sister Arthritis Accelerated hypertension Sister No problems noted. Sister No problems noted. Brother Overdose Brother HIV disease Son Asthma Son No problems noted. Son No problems noted. Son No problems noted. Daughter No problems noted. Social History Housing: Apartment Alcohol intake: former Patient Tobacco Use Status: Former Tobacco user Tobacco use type: Cigarette Cigarettes Per Day: 1 Years Smoked: 30 e-Cigarette/Vaping Use: Never Used Second Hand Smoke Exposure: Yes service: No Current occupational status: unemployed Cognitive needs: Yes Hearing needs: No Vision needs: Yes Female Reproductive History Menstrual Age of Menarche: 14 Physical Exam Vital Signs: Last Vital Signs Pulse 61 01/19/25 10:39 BP 188/81 H 01/19/25 10:39 Pulse Ox 98 01/19/25 10:39 Oxygen Delivery Method Room Air 01/19/25 10:39 Assessment & Plan Assessment & Plan (1) Myofascial pain syndrome: Code(s): M79.18 - Myalgia, other site Category: Medical (2) Greater trochanteric bursitis of left hip: Code(s): M70.62 - Trochanteric bursitis, left hip Category: Medical Plan Non image guided GTB steroid injection on the left side and trigger point injection of the left lower back. After obtaining informed consent the patient was positioned right lateral decubitus in the examination bed. Time-out was performed. The most tender point was located in the projection of the GTB. It was infiltrated with lidocaine and after that injection of the sterilely obtained ropivacaine 0.5% mixed with Kenalog 40 mg was performed in tender point in fan-like fashion. After that needle was removed sterile Band-Aid was applied and patient was positioned prone on the same bed. Again the most tender point was detected in the patient's left lower back, it was prepped with ChloraPrep, and again injection of the sterilely obtained ropivacaine 0.5% mixed with Kenalog 40 mg was performed into that point in fan-like fashion. The needles were withdrawn sterile Band-Aid was applied. The patient tolerated the procedure well. Orders: Orders FL guidance in treatment room Today M70.62 - Trochanteric bursitis, left hip Coding Level of Care Code Procedure Only Diagnoses Myofascial pain syndrome M79.18 Greater trochanteric bursitis of left hip M70.62
[2025-01-19 10:38] VITALS: BP 186/77; PULSE 69; O2SAT 98
[2025-01-19 10:39] VITALS: BP 188/81; PULSE 61; O2SAT 98
== END 2025-01-19 10:36 | disposition home or self-care (01) ==
LOC: HO.PMCPRC 10:05
PROVIDERS: Visit Provider Anesthesiology
DX: M70.62 Trochanteric bursitis, left hip (principal); M79.18 Myalgia, other site
CPT/HCPCS: 20552; 20610

== ENCOUNTER 2025-01-20 09:52 | Outpatient (AMB) | payer OTHER, SELFPAY ==
--- NOTE | 2025-01-20 09:59 | MHC.OFFVIS ---
Vital Signs 01/20/25 10:08 Height 5 ft 8 in Weight 372 lb 9.299 oz BMI 56.6 Intake Visit Reasons: WLE lipoma~ LUQ Intake Note: Patient is seen for office procedure, excision of lipoma of the chest wall. Pt c/o: here for removal of mass, no changes since last visit *Needs s/p* Window Shade Estimator Required: No Accompanied by: Self / Same As Patient Allergies morphine Allergy (Severe, Verified 01/20/25 10:09) Shortness of Breath Seasonal Allergies Allergy (Severe, Verified 01/20/25 10:09) Sneezing acetaminophen [From Percocet] Allergy (Intermediate, Verified 01/20/25 10:09) Rash latex [Latex] Allergy (Intermediate, Verified 01/20/25 10:09) ITCHY, RASH , AND FUNGUS oxycodone Allergy (Intermediate, Verified 01/20/25 10:09) Rash HPI HPI WLE lipoma~ LUQ: Details: She was here for excision of a lipoma. [facility] Medical History Lipoma of chest wall Chronic diastolic (congestive) heart failure Anal fistula Sinus complaint Sterilization Kidney stone Acute appendicitis Vesicular dermatitis Enlarged lymph node Acute bacterial tonsillitis History of claustrophobia History of anxiety Hx of tendinitis Hx of bursitis History of knee problem Hx of chronic arthritis Family history of heart murmur History of asthma Surgical History History of hand surgery Hx of carpal tunnel repair H/O bilateral mastectomy History of kidney surgery Hx of tubal ligation Hx of tonsillectomy Hx of breast surgery Hx of appendectomy Hx of cholecystectomy Hx of knee surgery History of Achilles tendon repair Family History Mother Accelerated hypertension Arthritis Cancer of stomach Father Arthritis Sister No problems noted. Sister Arthritis Accelerated hypertension Sister No problems noted. Sister No problems noted. Brother Overdose Brother HIV disease Son Asthma Son No problems noted. Son No problems noted. Son No problems noted. Daughter No problems noted. Social History Housing: Apartment Alcohol intake: former Patient Tobacco Use Status: Former Tobacco user Tobacco use type: Cigarette Cigarettes Per Day: 1 Years Smoked: 30 e-Cigarette/Vaping Use: Never Used Second Hand Smoke Exposure: Yes service: No Current occupational status: unemployed Cognitive needs: Yes Hearing needs: No Vision needs: Yes Female Reproductive History Menstrual Age of Menarche: 14 Physical Exam Vital Signs: BMI result Body Mass Index 56.6 Office Procedures Excision Details: She was in reclining position. The area of the lipoma on the left lower chest wall was prepped and draped. Lidocaine 1% was used for local anesthesia. I made an incision on the skin overlying the lipoma with a blade 15. And this carried down through the full-thickness of the skin and subcutaneous fat. The lipoma was visualized. It was sharply dissected with Metzenbaum scissors circumferentially until this was delivered. This measured about 2 cm. The incision was closed with full-thickness nylon 3-0 simple interrupted sutures. Dressings were applied. The procedure was completed. She tolerated procedure well. There were no complications. She was given wound care instructions. [id number]-[id number]/arms/legs 1.1-2cm Procedure code (CPT) selection complete Assessment & Plan Assessment & Plan (1) Lipoma of chest wall: Code(s): D17.1 - Benign lipomatous neoplasm of skin and subcutaneous tissue of trunk Category: Medical Plan: Excision was done. She will be seen in the office in 2 weeks for removal sutures. Coding Level of Care Code Procedure Only Diagnoses Lipoma of chest wall D17.1 CPT Codes Trunk/Arms/Legs - CPT: 64873-[id number]/arms/legs 1.1-2cm ([id number])
[2025-01-20 10:08] VITALS: BMI 56.6
== END 2025-01-20 10:47 | disposition home or self-care (01) ==
LOC: HO.HGS 09:53
PROVIDERS: Visit Provider Surgery
DX: D17.1 Benign lipomatous neoplasm of skin and subcutaneous tissue of trunk (principal)
CPT/HCPCS: 11403

== ENCOUNTER 2025-01-20 09:52 | Outpatient (REF) | payer OTHER, SELFPAY | END 2025-01-20 09:53 | disposition home or self-care (01) | LOC: HO.LAB 09:52 | PROVIDERS: Visit Provider Surgery | DX: D17.1 Benign lipomatous neoplasm of skin and subcutaneous tissue of trunk (principal) | CPT/HCPCS: 11403; 88304 ==

== ENCOUNTER 2025-01-25 13:53 | Outpatient (AMB) | payer OTHER, SELFPAY ==
--- NOTE | 2025-01-25 13:57 | A.OFFVIS_ITS ---
VS Expanded 01/25/25 14:29 BP 151/74 H Blood Pressure Location Lt brachial Blood Pressure Position Sitting Pulse 60 Pulse Source Pulse Oximeter Temp 97 F Temperature Source Temporal Artery Scan Pulse Oximetry 97 Oxygen Delivery Method Room Air Height 5 ft 9 in Weight 377 lb BMI 55.7 Body Fat % 50.9 Body Fat Mass 192. Fat Free Mass 185. Body Water % 35.0 Body Water Mass 132.0 Muscle Mass/Score 175.8 Basal Metabolic Rate/Score 2,717 Intake Visit Reasons: (OV) F/U SWL Maintenance And Repair Worker Required: Yes Maintenance And Repair Worker Language: Band Maker Services: Maintenance And Repair Worker Present Maintenance And Repair Worker Name: hospital cmi Allergies morphine Allergy (Severe, Verified 01/25/25 13:58) Shortness of Breath Seasonal Allergies Allergy (Severe, Verified 01/25/25 13:58) Sneezing acetaminophen [From Percocet] Allergy (Intermediate, Verified 01/25/25 13:58) Rash latex [Latex] Allergy (Intermediate, Verified 01/25/25 13:58) ITCHY, RASH , AND FUNGUS oxycodone Allergy (Intermediate, Verified 01/25/25 13:58) Rash opium (anthroposophic) Allergy (Unknown, Verified 01/25/25 13:58) Hives Medication List - Last Reconciled 01/25/25 by NICCI Hannah albuterol sulfate 90 mcg/actuation (Proventil HFA) 2 puffs inhalation Q6H PRN cholecalciferol (vitamin D3) (Vitamin D3) 50 mcg (2 x 25 mcg (1,000 unit)) PO DAILY dicyclomine 20 mg PO TID docusate sodium (Colace) 100 mg PO BID 90 days fexofenadine 180 mg PO DAILY furosemide 60 mg (1.5 x 40 mg) PO DAILY furosemide 20 mg PO BID ibuprofen 800 mg PO TID [Kneeling Scooter As directed] lidocaine 5% 1 patch topical DAILY mecobalamin (vitamin B12) 1,000 mcg subcut .once a week omeprazole 20 mg PO DAILY ondansetron 4 mg PO Q6-8H PRN sennosides (senna) 8.6 mg PO BEDTIME PRN Shower Chair As directed sucralfate (Carafate) 1 g PO BID PRN thiamine HCl (vitamin B1) 100 mg PO DAILY 90 days vitamin A palmitate 20,000 units PO DAILY 30 days HPI Comments Details: 54-year-old female who presents to the office today in follow-up for surgical weight loss. She was initially seen on 07/10/2024 with a weight of 381 lb. She was next seen in September 2024, at that time her weight was 375.2 lb with a BMI of 55.4. She has not been seen in the office since September and has not been texting weekly. She states that she has not been in several months because she had a virus, she. She had injection to her hip and is now feeling better and feels as though she is able to exercise. Weight today is 377 pounds w ith a BMI of 55.7 Since last visit approximately a month ago, she was seen by her primary care physician regarding elevated TSH, repeat testing was requested. She was seen by Cardiology and CT angio of the heart was ordered and is scheduled on 12/09/24. She states she is having trouble following the lucila. She requests a meal plan Meal plan: 5 Orgain 2 scoops in 8 oz water meal with 13 forks protein and veg drinking plenty of water 8-10 bottles Exercise plan: just doing upper body. walking outside, not tracking calories. [facility] Medical History Lipoma of chest wall Chronic diastolic (congestive) heart failure Anal fistula Sinus complaint Sterilization Kidney stone Acute appendicitis Vesicular dermatitis Enlarged lymph node Acute bacterial tonsillitis History of claustrophobia History of anxiety Hx of tendinitis Hx of bursitis History of knee problem Hx of chronic arthritis Family history of heart murmur History of asthma Surgical History History of hand surgery Hx of carpal tunnel repair H/O bilateral mastectomy History of kidney surgery Hx of tubal ligation Hx of tonsillectomy Hx of breast surgery Hx of appendectomy Hx of cholecystectomy Hx of knee surgery History of Achilles tendon repair Family History Mother Accelerated hypertension Arthritis Cancer of stomach Father Arthritis Sister No problems noted. Sister Arthritis Accelerated hypertension Sister No problems noted. Sister No problems noted. Brother Overdose Brother HIV disease Son Asthma Son No problems noted. Son No problems noted. Son No problems noted. Daughter No problems noted. Social History Housing: Apartment Alcohol intake: former Patient Tobacco Use Status: Former Tobacco user Tobacco use type: Cigarette Cigarettes Per Day: 1 Years Smoked: 30 e-Cigarette/Vaping Use: Never Used Second Hand Smoke Exposure: Yes service: No Current occupational status: unemployed Cognitive needs: Yes Hearing needs: No Vision needs: Yes Female Reproductive History Menstrual Age of Menarche: 14 Physical Exam Const General: healthy appearing and no acute distress Resp Effort & Inspection: normal respiratory effort Auscultation: clear to auscultation bilaterally Cardio Rate: regular rate Rhythm: regular rhythm GI Auscultation: normal bowel sounds Extrem General: Yes normal to inspection Assessment & Plan Assessment & Plan (1) Morbid obesity due to excess calories: Code(s): E66.01 - Morbid (severe) obesity due to excess calories Category: Medical Plan: discussed the importance of following a meal plan and exercise plan. Discussed the importance of communicating weekly. She does state that she has a membership to the [employer] and is willing to go. We will adjust her meal plan per her request: Orgain protein powder 7-9 2 scoops 10-12 1 scoop 1 pm meal with 8 forks of protein and 8 of veggies 2-4 1 scoop 5 pm another meals with 8 forks protein and 8 forks veggies 7-9 pm 2 scoops All shakes using water or unsweetened almond milk. Return to clinic in 6 weeks
[2025-01-25 14:29] VITALS: BP 151/74; PULSE 60; TEMP 36.1; O2SAT 97; BMI 55.7
--- OUTSIDE RECORDS SUMMARY | 2025-01-25 15:41 | XMS_ITS | Patient Health Record ---
Author Organization [facility] Address [address] [place] [address] Care Team Providers Care Landscape Architecture Professor Name Role Phone Mustapha Godinez Primary Care Provider Unavailab Massimo Fagan Unavailable [phone] ALLERGIES Allergen (clinical drug ingredient) Drug/Non Drug [...] eeded Orally every 6 hrs Not-Taking Cholecalciferol 31529 UNIT Orally Not-Taking traMADol HCl 50 MG [...] Code Notes Problem Palpitations (R00.2) Active confirmed 94710126 Problem Impaired fasting glucose (R73.01) Active confirmed Impaired fasting glucose (996700436) Problem Tobacco use (Z72.0) Active confirmed Tobacco use (613302095) Problem Obesity (E66.9) Active confirmed 714369 001 Problem Anxiety (F41.9) Active confirmed 872855 02 Problem Chest pain (R07.9) Active confirmed 298 74733 Problem Obstructive sleep apnea (G47.33) Active confirmed 56287087 Problem Vitamin D deficiency (E55.9) Active confirmed 14522979 Problem Posttraumatic stress disorder (F43.10) Active confirmed 03224850 PLAN OF TREATMENT Pending Test Test Name [...] HEALTH MEDICAID [address] SHILPA Crisostomo [id number] Ladonna Szymanski Self - patient is the insured MEDICAL (GENERAL) HISTORY Medical History History ICD Code palpitations chest pain renal calculi obstructive sleep apnea vitamin D deficiency vitamin B deficiency uterine fibroids bipolar disorder anxiety and depression posttraumatic stress disorder obesity Surgical History Surgery Date(Month/Year) tonsillectomy tubal ligation lithotripsy for renal calculi
--- OUTSIDE RECORDS SUMMARY | 2025-01-25 15:41 | XMS_ITS | Clinical Summary ---
Author Organization [employer] [facility] Address [address] [place] [address] [address] [place] [address] Care Team Providers Care Rat Poisoner Name Role Phone Unavailable Primary Care Provider [...] patient's age to complete this topic Insurance [facility] C3
== END 2025-01-25 14:28 | disposition home or self-care (01) ==
PROVIDERS: Visit Provider Physician Assistant Surgical
DX: E66.813 Obesity, class 3 (principal); Z68.43 Body mass index [BMI] 50.0-59.9, adult
CPT/HCPCS: 99214

== ENCOUNTER → 2025-01-25 13:53 | Outpatient (BNVA) | payer OTHER, SELFPAY | PROVIDERS: Visit Provider Physician Assistant Surgical | DX: E66.01 Morbid (severe) obesity due to excess calories (principal); Z71.3 Dietary counseling and surveillance; Z68.43 Body mass index [BMI] 50.0-59.9, adult | CPT/HCPCS: 99212 ==

== ENCOUNTER 2025-02-04 10:49 | Outpatient (AMB) | payer OTHER, SELFPAY ==
--- NOTE | 2025-02-04 10:55 | MHC.OFFVIS ---
Vital Signs 02/04/25 11:03 Height 5 ft 9 in Weight 381 lb BMI 56.3 BP 165/81 H Blood Pressure Location Rt radial Position Sitting Pulse 65 Intake Visit Reasons: s/p WLE lipoma~ LUQ Intake Note: Patient here s/p chest wall lipoma excision on 01-20-2025. Reports incision healing well. Patient c/o: 3 sutures removed without incident. Econometrician Required: Yes Accompanied by: Self / Same As Patient Allergies morphine Allergy (Severe, Verified 02/04/25 11:04) Shortness of Breath Seasonal Allergies Allergy (Severe, Verified 02/04/25 11:04) Sneezing acetaminophen [From Percocet] Allergy (Intermediate, Verified 02/04/25 11:04) Rash latex [Latex] Allergy (Intermediate, Verified 02/04/25 11:04) ITCHY, RASH , AND FUNGUS oxycodone Allergy (Intermediate, Verified 02/04/25 11:04) Rash opium (anthroposophic) Allergy (Unknown, Verified 02/04/25 11:04) Hives HPI HPI s/p WLE lipoma~ LUQ: Details: She underwent excision of a large lipoma from the left upper quadrant in the office under local anesthesia last 01/20/2025. She tolerated the procedure well She currently feels well and denies significant complaints. [facility] Medical History Lipoma of chest wall Chronic diastolic (congestive) heart failure Anal fistula Sinus complaint Sterilization Kidney stone Acute appendicitis Vesicular dermatitis Enlarged lymph node Acute bacterial tonsillitis History of claustrophobia History of anxiety Hx of tendinitis Hx of bursitis History of knee problem Hx of chronic arthritis Family history of heart murmur History of asthma Surgical History History of hand surgery Hx of carpal tunnel repair H/O bilateral mastectomy History of kidney surgery Hx of tubal ligation Hx of tonsillectomy Hx of breast surgery Hx of appendectomy Hx of cholecystectomy Hx of knee surgery History of Achilles tendon repair Family History Mother Accelerated hypertension Arthritis Cancer of stomach Father Arthritis Sister No problems noted. Sister Arthritis Accelerated hypertension Sister No problems noted. Sister No problems noted. Brother Overdose Brother HIV disease Son Asthma Son No problems noted. Son No problems noted. Son No problems noted. Daughter No problems noted. Social History Housing: Apartment Alcohol intake: former Patient Tobacco Use Status: Former Tobacco user Tobacco use type: Cigarette Cigarettes Per Day: 1 Years Smoked: 30 e-Cigarette/Vaping Use: Never Used Second Hand Smoke Exposure: Yes service: No Current occupational status: unemployed Cognitive needs: Yes Hearing needs: No Vision needs: Yes Female Reproductive History Menstrual Age of Menarche: 14 Review of Systems Const Denies chills and Denies fever(s) Physical Exam Vital Signs: Last Vital Signs Pulse 65 02/04/25 11:03 BP 165/81 H 02/04/25 11:03 BMI result Body Mass Index 56.3 Const General: comfortable and no acute distress Resp Effort & Inspection: normal respiratory effort GI Other: Excision site in the left upper quadrant is well healed, not infected, sutures intact Assessment & Plan Assessment & Plan (1) Lipoma: Code(s): D17.9 - Benign lipomatous neoplasm, unspecified Category: Medical Plan: Status post excision. Her incision is well healed. Her sutures were removed Her path report confirms a lipoma. She can follow up on a p.r.n. basis. Coding Level of Care Code Global (33848) Diagnoses Lipoma D17.9
[2025-02-04 11:03] VITALS: BP 165/81; PULSE 65; BMI 56.3
--- OUTSIDE RECORDS SUMMARY | 2025-02-04 12:55 | XMS_ITS | Clinical Summary ---
Author Organization [employer] [facility] Address [address] [place] [address] [address] [address] Care Team Providers Care Pesticide Chemist Name Role Phone Unavailable Primary Care Provider [...] patient's age to complete this topic Insurance [facility] C3
== END 2025-02-04 11:09 | disposition home or self-care (01) ==
LOC: HO.HGS 10:50
PROVIDERS: Visit Provider Surgery
DX: D17.9 Benign lipomatous neoplasm, unspecified (principal)
CPT/HCPCS: 99024

== ENCOUNTER → 2025-02-04 10:49 | Outpatient (BNVA) | payer OTHER, SELFPAY | PROVIDERS: Visit Provider Surgery | DX: Z09 Encounter for follow-up examination after completed treatment for conditions other than malignant neoplasm (principal); Z48.817 Encounter for surgical aftercare following surgery on the skin and subcutaneous tissue; Z98.890 Other specified postprocedural states | CPT/HCPCS: 99212 ==

== ENCOUNTER 2025-02-26 09:42 | Outpatient (REF) | payer OTHER, SELFPAY ==
--- NOTE | ~2025-02-26 | XR_ITS ---
XR KNEE MICHELET 3V HISTORY: Knee pain. COMPARISON: None. TECHNIQUE: AP view bilateral knees standing, lateral and patellofemoral views bilateral knees. FINDINGS: RIGHT KNEE: No fracture, dislocation, or suspicious bone lesion. Moderate medial compartment joint space narrowing with marginal spurring. Mild to moderate lateral and patellofemoral compartment narrowing and spurring. Spurring of the tibial spines. There is mild lateral patellar tilt. There is a moderate to large suprapatellar joint effusion. Soft tissues appear normal. LEFT KNEE: No fracture, dislocation, or suspicious bone lesion. Moderate medial compartment joint space narrowing with marginal spurring. Mild to moderate lateral and patellofemoral compartment narrowing and spurring. Spurring of the tibial spines. There is lateral patellar tilt. There is a small suprapatellar joint effusion. Soft tissues appear normal. XR/XR Knee Michelet 3V IMPRESSION: LEFT KNEE: 1. No acute bony abnormalities. 2. Tricompartmental osteoarthrosis, moderate in the medial compartment. 3. Small joint effusion. RIGHT KNEE: 1. No acute bony abnormalities. 2. Tricompartmental osteoarthrosis, moderate in the medial compartment. 3. Moderate to large joint effusion. Electronically signed by: Giovanni Awad MD 03/01/2025 09:10 AM EDT
--- OUTSIDE RECORDS SUMMARY | 2025-02-26 11:35 | XMS_ITS | Clinical Summary ---
Author Organization [employer] [facility] Address [address] [place] [address] [address] [place] [address] Care Team Providers Care Ironworker Foreman Name Role Phone Unavailable Primary Care Provider [...] patient's age to complete this topic Insurance [facility] C3
[2025-02-26 12:01] LABS: Free T4 (Free Thyroxine) 0.76 ng/dL (0.71-1.85); TSH reflex Free T4 8.35 uIU/mL (0.32-4.0)
== END 2025-02-26 09:43 | disposition home or self-care (01) ==
LOC: HO.XRAY 09:42
PROVIDERS: Visit Provider Registered Nurse Emergency
DX: M25.561 Pain in right knee (principal); M25.562 Pain in left knee; R79.89 Other specified abnormal findings of blood chemistry; M79.18 Myalgia, other site
CPT/HCPCS: 36415; 73562; 84439; 84443; 99212

== ENCOUNTER 2025-02-26 09:42 | Outpatient (AMB) | payer OTHER, SELFPAY ==
--- NOTE | 2025-02-26 09:48 | A.OFFVIS_ITS ---
Vital Signs 02/26/25 09:52 Height 5 ft 9 in Weight 391 lb 6 oz BMI 57.8 Intake Visit Reasons: LEFT GTB INJECTION AND LEFT LUMBAR TPI Intake Note: Pain today 04/06 Conservation Biology Professor Required: Yes Conservation Biology Professor Language: Experimental Machinist Name: Rosie Accompanied by: Self / Same As Patient Allergies morphine Allergy (Severe, Verified 02/26/25 09:52) Shortness of Breath Seasonal Allergies Allergy (Severe, Verified 02/26/25 09:52) Sneezing acetaminophen [From Percocet] Allergy (Intermediate, Verified 02/26/25 09:52) Rash latex [Latex] Allergy (Intermediate, Verified 02/26/25 09:52) ITCHY, RASH , AND FUNGUS oxycodone Allergy (Intermediate, Verified 02/26/25 09:52) Rash opium (anthroposophic) Allergy (Unknown, Verified 02/26/25 09:52) Hives HPI Comments Details: The patient is a 54-year-old female presenting with pain management concerns primarily involving Myofascial left lower back pain, greater trochanteric bursitis and bilateral knee pain. She underwent left GTB injection and left low er back TPI 5 weeks ago, which provided temporary relief. No current pain to left lateral thigh/GTB. Pain in left lower back returned 2 days ago without inciting injury, though pain is not as strong as it was prior to TPI. In parallel, she has longstanding bilateral knee pain, for which previous injections were beneficial. Her attempt to proceed with knee surgery was deferred due to challenges in weight loss. Currently, the left knee displays pain concentrated on its lateral and posterior areas, especially problematic when altering bed positions. She has not contributed any recent aggravating factors to her condition. - Onset & Timing: Many years. - Quality & Character: Localized and post-injection relief followed by recurrent pain. - Primary Location: Left lower back and both knees. - Exacerbating Factors: Sitting and certain hip movements. - Relieving Factors: Initial post-injection relief. - Functional Implications: Affecting ability to sit comfortably and perform daily activities like rolling over in bed. - Affect: Chronic pain is impacting daily activities and potentially affecting stress levels. - Analgesia: Initial injections provided relief; uses ibuprofen occasionally for pain management; lidocaine patches primarily for sleep. - Adverse Effects: Notably on ibuprofen side effects if used excessively. - Activities of Daily Living: Pain interferes with sitting and bed mobility, affecting overall function. - Aberrant Drug Related Behaviors: None reported in this session; discussed in conversation. [facility] Medical History Lipoma of chest wall Chronic diastolic (congestive) heart failure Anal fistula Sinus complaint Sterilization Kidney stone Acute appendicitis Vesicular dermatitis Enlarged lymph node Acute bacterial tonsillitis History of claustrophobia History of anxiety Hx of tendinitis Hx of bursitis History of knee problem Hx of chronic arthritis Family history of heart murmur History of asthma Surgical History History of hand surgery Hx of carpal tunnel repair H/O bilateral mastectomy History of kidney surgery Hx of tubal ligation Hx of tonsillectomy Hx of breast surgery Hx of appendectomy Hx of cholecystectomy Hx of knee surgery History of Achilles tendon repair Family History Mother Accelerated hypertension Arthritis Cancer of stomach Father Arthritis Sister No problems noted. Sister Arthritis Accelerated hypertension Sister No problems noted. Sister No problems noted. Brother Overdose Brother HIV disease Son Asthma Son No problems noted. Son No problems noted. Son No problems noted. Daughter No problems noted. Social History Housing: Apartment Alcohol intake: former Patient Tobacco Use Status: Former Tobacco user Tobacco use type: Cigarette Cigarettes Per Day: 1 Years Smoked: 30 e-Cigarette/Vaping Use: Never Used Second Hand Smoke Exposure: Yes service: No Current occupational status: unemployed Cognitive needs: Yes Hearing needs: No Vision needs: Yes Female Reproductive History Menstrual Age of Menarche: 14 Review of Systems Const All systems reviewed & are unremarkable except as noted in HPI and below Physical Exam Vital Signs: BMI result Body Mass Index 57.8 General: awake, alert, oriented. Answers questions appropriately. Fully engaged in examination. Obese. Skin: warm, dry, intact HEENT: Normocephalic. Hearing intact. Cardiac: External chest normal in appearance. Respiratory: No cough, audible wheezing or stridor. Abdomen: without gross distension. MS: No obvious swelling or deformities. Able to transition from sit to stand unassisted. Ambulates with bilaterally normal heel strike and toe off Tenderness over lumbar musculature on the left Bilateral knees: positive crepitus. Tenderness along lateral and medial joint lines. Neurological: Oriented to person, place, time and situation. Thought process intact. No gait abnormalities appreciated. Psychiatric: Appropriate mood and affect. Good judgment and insight. Results Reviewed Results Reviewed: 06/2024 left hip x-ray: Results pending 09/02/2024 CT abdomen and pelvis FINDINGS: LUNG BASES: The visualized lung bases are unremarkable. LIVER, GALLBLADDER, AND BILIARY TREE: The liver is normal in size, shape, and attenuation. No focal hepatic lesion or biliary ductal dilatation is present. There has been a prior cholecystectomy. PANCREAS: Unremarkable. SPLEEN: Unremarkable. ADRENAL GLANDS: Unremarkable. KIDNEYS AND URETERS: The kidneys are normal in size, shape, and attenuation. There are adjacent nonobstructing 1 to 2 mm calculi lower pole left kidney. There is no hydronephrosis. BLADDER: Unremarkable. GASTROINTESTINAL TRACT: There are scattered diverticula of the ascending and descending colon without diverticulitis. The appendix is not seen. ABDOMINAL WALL: No significant hernia is appreciated. LYMPH NODES: Normal. VASCULAR: There is mild atherosclerotic plaque of the abdominal aorta. PELVIC VISCERA: Unremarkable. OSSEOUS STRUCTURES: There is diffuse mild thoracolumbar degenerative change. IMPRESSION: Nonobstructing left renal calculi. Scattered diverticula without diverticulitis. No acute abnormality CT scan abdomen pelvis. Fleischner guidelines were followed. Assessment & Plan Assessment & Plan (1) Bilateral knee pain: Code(s): M25.561 - Pain in right knee; M25.562 - Pain in left knee Category: Medical (2) Myofascial pain syndrome: Code(s): M79.18 - Myalgia, other site Category: Medical Plan Managing myofascial left lower back pain involves delaying repeat injections for six weeks and prescribing an alternative muscle relaxant. For knee osteoarthritis, x-rays has been ordered to assess structural changes and prepare for future steroid injections. Knee surgery prospects remain contingent on adequate weight loss, with continued guidance to monitor ibuprofen use due to associated side effects. Patient has exhausted conservative therapy including PT, home exercise program, [id number] medications, prescription medications, previous attempts at steroid injections. During our discussion, I explained the chronological progression of her clinical presentation and strategy for managing her pain within the current treatment timeline. I outlined the rationale for delaying further steroid injections but stressed the importance of exploring complementary approaches like alternative muscle relaxants. For her knee condition, I suggested re-evaluation, starting with diagnostic imaging to inform subsequent therapeutic interventions, emphasizing established relief from steroid injections and potential surgical procedures. Treatment efficacy and implications of [id number] medication use were reviewed, aligning future adjustments with scheduled monitoring. Will schedule for left intra-articular knee injection with local anesthetic, fluoroscopy guided. Patient was informed and verbally consented to the use of an ambient scribe for clinic note documentation during this visit. Orders: Orders XR Knee Michelet 3V Today M25.561 - Pain in right knee, M25.562 - Pain in left knee Medications: New methocarbamol No driving while taking this medication. Do no take with alcohol or other ORNAMENTAL IRONWORKER Depressants 500 mg PO TID PRN 90 tabs 1RF muscle spasm Patient Instructions: - Continue using ibuprofen sparingly for pain relief; avoid excessive doses. - Use lidocaine patches primarily at night for sleep assistance. - Plan for a different muscle relaxer prescription; follow instructions as directed. - X-ray for knees will be scheduled and completed at convenience. - Monitor for any changes or escalation in symptoms; seek care if conditions worsen. - Await follow-up discussion for knee treatment options depending on imaging results. Coding Level of Care Code Est Pt Level 3 (76589) Complex EM visit Add On G2211 Diagnoses Bilateral knee pain M25.561; M25.562 Myofascial pain syndrome M79.18
[2025-02-26 09:52] VITALS: BMI 57.8
--- OUTSIDE RECORDS SUMMARY | 2025-02-26 10:31 | XMS_ITS | Patient Health Record ---
Author Organization [facility] Address [address] [place] [address] Care Team Providers Care Innovation Manager Name Role Phone Mustapha Godinez Primary Care [...] eeded Orally every 6 hrs Not-Taking Cholecalciferol 53156 UNIT Orally Not-Taking traMADol HCl 50 MG [...] Code Notes Problem Palpitations (R00.2) Active confirmed 55294557 Problem Impaired fasting glucose (R73.01) Active confirmed Impaired fasting glucose (744673232) Problem Tobacco use (Z72.0) Active confirmed Tobacco use (609600499) Problem Obesity (E66.9) Active confirmed 173798 001 Problem Anxiety (F41.9) Active confirmed 772916 02 Problem Chest pain (R07.9) Active confirmed 298 56877 Problem Obstructive sleep apnea (G47.33) Active confirmed 41958582 Problem Vitamin D deficiency (E55.9) Active confirmed 11093524 Problem Posttraumatic stress disorder (F43.10) Active confirmed 11215478 PLAN OF TREATMENT Pending Test Test Name [...] HEALTH MEDICAID [address] [place] Crisostomo [id number] Ladonna Szymanski Self - patient is the insured MEDICAL (GENERAL) HISTORY Medical History History ICD Code palpitations chest pain renal calculi obstructive sleep apnea vitamin D deficiency vitamin B deficiency uterine fibroids bipolar disorder anxiety and depression posttraumatic stress disorder obesity Surgical History Surgery Date(Month/Year) tonsillectomy tubal ligation lithotripsy for renal calculi
--- OUTSIDE RECORDS SUMMARY | 2025-02-26 10:31 | XMS_ITS | Clinical Summary ---
Author Organization [employer] [facility] Address [address] [place] [address] [address] [place] [address] Care Team Providers Care Patient Day Coordinator Name Role Phone Unavailable Primary Care Provider [...] patient's age to complete this topic Insurance [facility] C3
== END 2025-02-26 10:20 | disposition home or self-care (01) ==
LOC: HO.PMC 09:43
PROVIDERS: Visit Provider Registered Nurse Emergency
DX: M25.561 Pain in right knee (principal); M25.562 Pain in left knee; M79.18 Myalgia, other site
CPT/HCPCS: 99213; G2211

== ENCOUNTER → 2025-02-26 10:44 | Outpatient (BNV) | payer OTHER, SELFPAY | PROVIDERS: Visit Provider Radiology Diagnostic Radiology | DX: M17.0 Bilateral primary osteoarthritis of knee (principal); M25.461 Effusion, right knee; M25.462 Effusion, left knee | CPT/HCPCS: 73562 ==

== ENCOUNTER 2025-03-12 10:58 | Emergency (ER) | payer OTHER, SELFPAY ==
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
[2025-03-12 11:11] VITALS: BP 167/60; PULSE 75; RESP 18; TEMP 36.5; O2SAT 96; BMI 58.9
[2025-03-12 13:13] VITALS: BP 167/60; PULSE 75; RESP 18; TEMP 36.5; O2SAT 96
== END 2025-03-12 13:13 | disposition home or self-care (01) ==
PROVIDERS: Emergency Provider Emergency Medicine Emergency Medical Services
DX: M54.2 Cervicalgia (principal); M54.50 Low back pain, unspecified; M25.512 Pain in left shoulder; Z04.1 Encounter for examination and observation following transport accident
CPT/HCPCS: 72100; 72125; 73030; 99282; 99284

== ENCOUNTER → 2025-03-12 11:15 | Outpatient (BNV) | payer OTHER, SELFPAY | PROVIDERS: Visit Provider Radiology Diagnostic Radiology | DX: M54.2 Cervicalgia (principal); M54.50 Low back pain, unspecified; M25.512 Pain in left shoulder | CPT/HCPCS: 72100; 72125; 73030 ==

== ENCOUNTER 2025-03-24 14:29 | Outpatient (AMB) | payer OTHER, SELFPAY ==
[2025-03-24 14:39] VITALS: BP 150/88; PULSE 70; BMI 57.9
--- NOTE | 2025-03-24 14:39 | A.OFFVIS_ITS ---
Vital Signs 03/24/25 14:39 Height 5 ft 9 in Weight 392 lb 6.765 oz BMI 57.9 BP 150/88 H Blood Pressure Location Rt radial Position Sitting Pulse 70 Intake Visit Reasons: f/up cardiac CTA r/s 02-10-25 Intake Note: Follow-up CTA c/o palpations and no energy Specimen Processor Required: Yes Specimen Processor Services: Specimen Processor Present Specimen Processor Name: Enzo Brenton Allergies morphine Allergy (Severe, Verified 03/12/25 11:14) Shortness of Breath Seasonal Allergies Allergy (Severe, Verified 03/12/25 11:14) Sneezing acetaminophen [From Percocet] Allergy (Intermediate, Verified 03/12/25 11:14) Rash latex [Latex] Allergy (Intermediate, Verified 03/12/25 11:14) ITCHY, RASH , AND FUNGUS oxycodone Allergy (Intermediate, Verified 03/12/25 11:14) Rash opium (anthroposophic) Allergy (Unknown, Verified 03/12/25 11:14) Hives Medication List - Last Reconciled 03/24/25 by Patrice Horner MD albuterol sulfate 90 mcg/actuation (Proventil HFA) 2 puffs inhalation Q6H PRN [Bed pads As directed] benzonatate 100 mg PO TID PRN cholecalciferol (vitamin D3) (Vitamin D3) 50 mcg (2 x 25 mcg (1,000 unit)) PO DAILY cyanocobalamin (vitamin B-12) mcg IM cyclobenzaprine 5 mg PO Q8H PRN 5 days [Depends sanitary pads As directed] dicyclomine 20 mg PO TID docusate sodium (Colace) 100 mg PO BID 90 days fexofenadine 180 mg PO DAILY furosemide 60 mg (1.5 x 40 mg) PO DAILY [hypoallergenic sanitary wipes As directed] ibuprofen 800 mg PO TID [Kneeling Scooter As directed] levothyroxine 25 mcg PO DAILY lidocaine 5% (Lidoderm) 1 patch topical DAILY PRN MDD remove after 12 hours lidocaine 5% 1 patch topical DAILY mecobalamin (vitamin B12) 1,000 mcg subcut .once a week methocarbamol 500 mg PO TID PRN naproxen 500 mg PO BID PRN 10 days omeprazole 20 mg PO DAILY ondansetron 4 mg PO Q6-8H PRN sennosides (senna) 8.6 mg PO BEDTIME PRN Shower Chair As directed sucralfate (Carafate) 1 g PO BID PRN thiamine HCl (vitamin B1) 100 mg PO DAILY 90 days vitamin A palmitate 20,000 units PO DAILY 30 days HPI Comments Details: Ladonna returns for follow-up regarding congestive heart failure. She is morbidly obese. Has been seen by at [facility] in 2022. At that time, apparently diastolic heart failure was the diagnosis. There was planned for left/right heart catheterization and CardioMEMS but it seems like that was never performed. Patient states she had insurance issues. Any case, she switched her care to here. She gets symptoms of some nonspecific fatigue. Breathing is okay for the most part. Has a history of obstructive sleep apnea but not using CPAP. Morbidly obese. She has completed comprehensive workup including echocardiogram, coronary CTA and Holter. [facility] Medical History Lipoma of chest wall Chronic diastolic (congestive) heart failure Anal fistula Sinus complaint Sterilization Kidney stone Acute appendicitis Vesicular dermatitis Enlarged lymph node Acute bacterial tonsillitis History of claustrophobia History of anxiety Hx of tendinitis Hx of bursitis History of knee problem Hx of chronic arthritis Family history of heart murmur History of asthma Surgical History History of hand surgery Hx of carpal tunnel repair H/O bilateral mastectomy History of kidney surgery Hx of tubal ligation Hx of tonsillectomy Hx of breast surgery Hx of appendectomy Hx of cholecystectomy Hx of knee surgery History of Achilles tendon repair Family History Mother Accelerated hypertension Arthritis Cancer of stomach Father Arthritis Sister No problems noted. Sister Arthritis Accelerated hypertension Sister No problems noted. Sister No problems noted. Brother Overdose Brother HIV disease Son Asthma Son No problems noted. Son No problems noted. Son No problems noted. Daughter No problems noted. Social History Housing: Apartment Alcohol intake: former Patient Tobacco Use Status: Former Tobacco user Tobacco use type: Cigarette Cigarettes Per Day: 1 Years Smoked: 30 e-Cigarette/Vaping Use: Never Used Second Hand Smoke Exposure: Yes service: No Current occupational status: unemployed Cognitive needs: Yes Hearing needs: No Vision needs: Yes Female Reproductive History Menstrual Age of Menarche: 14 Review of Systems Const Denies chills, Denies fatigue, Denies fever(s), Denies frequent falls, Denies weakness, Denies weight gain and Denies weight loss ENT Denies dizziness Card Denies chest pain, Denies leg edema, Denies lightheadedness, Denies palpitations, Denies dyspnea, Denies dyspnea on exertion, Denies orthopnea and Denies other (loss of consciousness) Resp Denies cough, Denies dyspnea and Denies dyspnea on exertion GI Denies hematochezia and Denies change in stool character Musc Denies abnormal gait, Denies muscle weakness, Denies numbness, Denies radiating pain into limb and Denies tingling Neuro Denies abnormal gait, Denies dizziness, Denies frequent falls, Denies numbness, Denies tingling and Denies weakness Endo Denies fatigue and Denies palpitations Physical Exam Vital Signs: Last Vital Signs Pulse 70 03/24/25 14:39 BP 150/88 H 03/24/25 14:39 BMI result Body Mass Index 57.9 Const General: comfortable and no acute distress Orientation/consciousness: patient oriented x3 HEENT Other: Unremarkable Head: Yes normal to inspection Neck Neck: Yes normal visual inspection Chest Chest palpation & inspection: normal inspection of the chest Resp Auscultation: clear to auscultation bilaterally Cardio Palpation: normal PMI Heart sounds: S1 normal heart sound present, S2 normal heart sound present, no gallops, no murmurs and no rubs GI Palpation (GI): Soft to palpation Back/Spine/Pelvis Other: unremarkable Skin General skin exam: no rashes or lesions noted Neuro General: patient oriented x3 Extrem General: Yes normal to inspection Psych Mental Status: mental status grossly normal Assessment & Plan Assessment & Plan (1) Morbid obesity due to excess calories: Code(s): E66.01 - Morbid (severe) obesity due to excess calories Category: Medical (2) Congestive heart failure, unspecified: Code(s): I50.9 - Heart failure, unspecified Category: Medical Plan Pertinent studies reviewed. Recent EKG with underlying sinus rhythm at 62/Min; no significant ST-T changes and otherwise unremarkable. Normal ME and corrected QT. Labs showed normal cardiac BNP of 15. High sensitivity troponin normal. Echocardiogram with LVEF of 61%. No wall motion abnormalities. Normal diastolic function. No evidence of pulmonary hypertension. In the coronary CTA, no hemodynamically significant CAD. Minimal stenosis from noncalcified plaque versus artifact in the mid RCA. Mild mid LAD stenosis due to superficial myocardial bridge. In the Holter, underlying rhythm is sinus with rare supraventricular/ventricular ectopy. Overall, her symptoms are more likely related to obesity than anything else. There does not seem to be any clear evidence of left heart or right heart dysfunction based on the above. However, morbid obesity can certainly lead to right heart dysfunction. Main recommendation is rather to lose weight and it seems that she already goes to bariatric for that. She is on diuretics and okay to use that for symptomatic relief for any fluid retention but focus should be more so on losing weight rather. We discussed about these things today. Blood pressure is on the higher side and again weight loss will be of tremendous benefit in managing it. If not, may need medications. Follow up in one year. In the interim, call with concerns. Discussion Notes During the visit, I discussed with the patient that her shortness of breath did not appear to have a cardiac origin as her heart function was normal according to recent tests. We talked about the importance of weight management as a means to alleviate cardiovascular strain, and I emphasized the benefits of monitoring and potentially adjusting her diet. I reassured her that despite concerns about plaque buildup and calcium changes, her heart looked fine. We agreed on a foll ow-up visit in one year to reassess her condition. No immediate changes to her current treatment plan were made, and I addressed her concerns about thyroid issues, advising her to monitor these symptoms. Patient was informed and verbally consented to the use of an ambient scribe for clinic note documentation during this visit. Patient Instructions: - Monitor your weight and consider dietary changes to help with weight management. - Continue taking your medications as prescribed. - Follow up in one year to reassess your condition. - Watch for any changes in your breathing or energy levels and report them. Coding Level of Care Code Est Pt Level 4 (96646) Diagnoses Morbid obesity due to excess calories E66.01 Congestive heart failure, unspecified I50.9
--- OUTSIDE RECORDS SUMMARY | 2025-03-24 15:24 | XMS_ITS | Clinical Summary ---
Author Organization [employer] [facility] Address [address] [place] [address] Care Team Providers Care Director [facility] Name Role Phone Unavailable Primary Care Provider [...] FIT 1972 FOBT 1972 HIV Screening 1972 Lipid Panel 1972 SDOH Screening 1972 Sigmoidoscopy 1972 Disability Screening 1972 Alcohol/Substance Use Screening 1984 Tobacco Screening 1984 Family Planning (PISQ) 1987 Hepatitis C Screening 1990 Hepatitis B Vaccines (1 of 3 - 19+ 3-dose series) 1991 Pap Smear 1993 Cervical Cancer Screening 2002 HPV/Cotest 2002 DTaP/Tdap/Td Vaccines (1 - Tdap) 07/18/2011 07/17/2011 Pneumococcal Vaccine: 50+ Years (2 of 2 - PCV) 2022 03/11/2013 Zoster Vaccines (1 of 2) 2022 COVID-19 Vaccine (3 - 2023- season) 2024 02/17/2021, 01/26/2021 Influenza Vaccine (#1) 2024 3, 08/06/2022, 09/26/2021, Additional history exists Mammogram 02/20/2026 02/21/2024, 05/28, 05/01/2023, Additional history exists RSV Patients and Patients Aged 60 years or older (1 - [...] patient's age to complete this topic Meningococcal B Vaccine Aged Out No l onger eligible based on patient's age to complete this topic Meningococcal Vaccine Aged Out No teressa bryon eligible based on patient's age to complete this topic RSV under 20 months Aged Out No longe r eligible based on patient's age to complete this topic Rotavirus Vaccines Aged Out No longer eligible based on patient's age to complete this topic Insurance [facility] C3
== END 2025-03-24 15:01 | disposition home or self-care (01) ==
LOC: HO.HCS 14:30
PROVIDERS: Visit Provider Internal Medicine
DX: E66.01 Morbid (severe) obesity due to excess calories (principal); I50.9 Heart failure, unspecified
CPT/HCPCS: 99214

== ENCOUNTER → 2025-03-24 14:29 | Outpatient (BNVA) | payer OTHER, SELFPAY | PROVIDERS: Visit Provider Internal Medicine | DX: I50.9 Heart failure, unspecified (principal); E66.01 Morbid (severe) obesity due to excess calories; Z68.43 Body mass index [BMI] 50.0-59.9, adult | CPT/HCPCS: 99212 ==

== ENCOUNTER 2025-03-29 10:35 | Outpatient (AMB) | payer OTHER, SELFPAY ==
--- NOTE | 2025-03-29 10:40 | A.OFFVIS_ITS ---
VS Expanded 03/29/25 10:58 BP 162/78 H Blood Pressure Location Rt brachial Blood Pressure Position Sitting Pulse 66 Pulse Source Pulse Oximeter Temp 96.6 F L Temperature Source Temporal Artery Scan Pulse Oximetry 95 Oxygen Delivery Method Room Air Height 5 ft 8 in Weight 392 lb BMI 59.6 Body Fat % 50.1 Body Fat Mass 196.2 Fat Free Mass 195.8 Visceral Fat Rating 21.0 Body Water % 35.6 Body Water Mass 139.6 Muscle Mass/Score 186.0 Basal Metabolic Rate/Score 2,884 Intake Visit Reasons: OV F/U SWL Appliance Painter And Refinisher Required: Yes Appliance Painter And Refinisher Services: Appliance Painter And Refinisher Present Appliance Painter And Refinisher Name: hospital cmi Allergies morphine Allergy (Severe, Verified 03/29/25 10:49) Shortness of Breath Seasonal Allergies Allergy (Severe, Verified 03/29/25 10:49) Sneezing acetaminophen [From Percocet] Allergy (Intermediate, Verified 03/29/25 10:49) Rash latex [Latex] Allergy (Intermediate, Verified 03/29/25 10:49) ITCHY, RASH , AND FUNGUS oxycodone Allergy (Intermediate, Verified 03/29/25 10:49) Rash opium (anthroposophic) Allergy (Unknown, Verified 03/29/25 10:49) Hives Medication List - Last Reconciled 03/29/25 by NICCI Hannah albuterol sulfate 90 mcg/actuation (Proventil HFA) 2 puffs inhalation Q6H PRN [Bed pads As directed] benzonatate 100 mg PO TID PRN cholecalciferol (vitamin D3) (Vitamin D3) 50 mcg (2 x 25 mcg (1,000 unit)) PO DAILY cyanocobalamin (vitamin B-12) mcg IM cyclobenzaprine 5 mg PO Q8H PRN 5 days [Depends sanitary pads As directed] dicyclomine 20 mg PO TID docusate sodium (Colace) 100 mg PO BID 90 days fexofenadine 180 mg PO DAILY furosemide 60 mg (1.5 x 40 mg) PO DAILY [hypoallergenic sanitary wipes As directed] ibuprofen 800 mg PO TID [Kneeling Scooter As directed] levothyroxine 25 mcg PO DAILY lidocaine 5% (Lidoderm) 1 patch topical DAILY PRN MDD remove after 12 hours lidocaine 5% 1 patch topical DAILY mecobalamin (vitamin B12) 1,000 mcg subcut .once a week methocarbamol 500 mg PO TID PRN naproxen 500 mg PO BID PRN 10 days omeprazole 20 mg PO DAILY ondansetron 4 mg PO Q6-8H PRN sennosides (senna) 8.6 mg PO BEDTIME PRN Shower Chair As directed sucralfate (Carafate) 1 g PO BID PRN thiamine HCl (vitamin B1) 100 mg PO DAILY 90 days vitamin A palmitate 20,000 units PO DAILY 30 days HPI Comments Details: 54-year-old female who presents to the office today in follow-up for surgical weight loss. She was initially seen on 07/10/2024 with a weight of 381 lb. She was next seen in September 2024, at that time her weight was 375.2 lb with a BMI of 55.4. She was last seen in the office in December 2024 with a weight of 377 lb. Weight today is 392 lb with a BMI of 57.9. She has gained 11 lb since initiating the weight loss program in June 2024. Since last visit approximately a month ago, she was seen by her primary care physician regarding elevated TSH, repeat testing was requested. She was seen by Cardiology and CT angio of the heart. She states she was having trouble following the lucila. She was given a meal plan at her last visit. She was doing 2 scoops per shake and not measuring her food portions. Meal plan: Orgain protein powder 7-9 2 scoops in 8 oz water 10-12 1 scoop 1 pm meal with 8 forks of protein and 8 of veggies (not measuring) 2-4 1 scoop 5 pm another meals with 8 forks protein and 8 forks veggies 7-9 pm 2 scoops All shakes using water or unsweetened almond milk. Exercise plan: just doing upper body. walking outside, not tracking calories. [facility] Medical History Lipoma of chest wall Chronic diastolic (congestive) heart failure Anal fistula Sinus complaint Sterilization Kidney stone Acute appendicitis Vesicular dermatitis Enlarged lymph node Acute bacterial tonsillitis History of claustrophobia History of anxiety Hx of tendinitis Hx of bursitis History of knee problem Hx of chronic arthritis Family history of heart murmur History of asthma Surgical History History of hand surgery Hx of carpal tunnel repair H/O bilateral mastectomy History of kidney surgery Hx of tubal ligation Hx of tonsillectomy Hx of breast surgery Hx of appendectomy Hx of cholecystectomy Hx of knee surgery History of Achilles tendon repair Family History Mother Accelerated hypertension Arthritis Cancer of stomach Father Arthritis Sister No problems noted. Sister Arthritis Accelerated hypertension Sister No problems noted. Sister No problems noted. Brother Overdose Brother HIV disease Son Asthma Son No problems noted. Son No problems noted. Son No problems noted. Daughter No problems noted. Social History Housing: Apartment Alcohol intake: former Patient Tobacco Use Status: Former Tobacco user Tobacco use type: Cigarette Cigarettes Per Day: 1 Years Smoked: 30 e-Cigarette/Vaping Use: Never Used Second Hand Smoke Exposure: Yes service: No Current occupational status: unemployed Cognitive needs: Yes Hearing needs: No Vision needs: Yes Female Reproductive History Menstrual Age of Menarche: 14 Physical Exam Vital Signs: Last Vital Signs Temp 96.6 F L 03/29/25 10:58 Pulse 66 03/29/25 10:58 BP 162/78 H 03/29/25 10:58 Pulse Ox 95 03/29/25 10:58 Oxygen Delivery Method Room Air 03/29/25 10:58 BMI result Body Mass Index 59.6 Const General: healthy appearing and no acute distress Resp Effort & Inspection: normal respiratory effort Auscultation: clear to auscultation bilaterally Cardio Rate: regular rate Rhythm: regular rhythm GI Auscultation: normal bowel sounds Extrem General: Yes normal to inspection Assessment & Plan Assessment & Plan (1) Morbid obesity: Code(s): E66.01 - Morbid (severe) obesity due to excess calories Category: Medical Plan: Patient had not been following the meal plan exactly as given to her. She had not been measuring quantity of food. She had not been communicating with me. She had not been checking her weights or communicating this weekly. She has not been exercising. Discussed the importance of following the meal plan and initiating an exercise program which we discussed last time. She will try again. We will have her return to the office in approximately 1 month. She was encouraged to text weekly her weight is and if she is having any problems follow ing the plans.
[2025-03-29 10:58] VITALS: BP 162/78; PULSE 66; TEMP 35.9; O2SAT 95; BMI 59.6
--- OUTSIDE RECORDS SUMMARY | 2025-03-29 11:42 | XMS_ITS | Clinical Summary ---
Author Organization [employer] [facility] Address [address] [place] [address] Care Team Providers Care Level Vial Curvature Gauger Name Role Phone Unavailable Primary Care Provider [...] of 2) 2022 COVID-19 Vaccine (3 - season) 2024 02/17/2021, 01/26/2021 Influenza Vaccine (Season Ended) 2025 08/09/2023, 08/06/2022, 09/26/2021, Additional history exists Mammogram 02/20/2026 [...] patient's age to complete this topic Insurance [facility] C3
== END 2025-03-29 11:32 | disposition home or self-care (01) ==
LOC: HO.HBS 10:36
PROVIDERS: Visit Provider Physician Assistant Surgical
DX: E66.01 Morbid (severe) obesity due to excess calories (principal); Z68.43 Body mass index [BMI] 50.0-59.9, adult
CPT/HCPCS: 99213

== ENCOUNTER → 2025-03-29 10:35 | Outpatient (BNVA) | payer OTHER, SELFPAY | PROVIDERS: Visit Provider Physician Assistant Surgical | DX: E66.01 Morbid (severe) obesity due to excess calories (principal); Z68.43 Body mass index [BMI] 50.0-59.9, adult | CPT/HCPCS: 99212 ==

== ENCOUNTER 2025-04-18 11:40 | Emergency (ER) | payer OTHER, SELFPAY ==
[2025-04-18 11:57] VITALS: BP 144/71; PULSE 66; RESP 16; TEMP 36.2; O2SAT 94; BMI 58.2
--- NOTE | 2025-04-18 12:01 | ED.GENADULT ---
HPI - General Adult General Chief complaint: Eye Problems Stated complaint: eye problems Time Seen by Provider: 04/18/25 12:15 Source: patient Mode of arrival: ambulatory Limitations: language barrier (Croatian-speaking medical office rep utilized) History of Present Illness ED Provider: bala puga np HPI narrative: Patient is a 54-year-old female who presents emergency department for evaluation. She reports since yesterday she had onset of right eye redness that was painful and itchy. She felt as though she had a foreign body sensation to the eye. Today she had some yellow/bloody drainage from the corner of her eye when she woke up. She has a sandlike sensation in the eye. Left eye is unremarkable. She does admit to a history of allergies which sometimes causes eye irritation, however it is unilateral, she attempted antihistamine yesterday without improvement. She denies pain posterior to the eye, vision changes, headache. No recent trauma or injury. She does not wear any contact lenses. Denies any recent fevers or chills. Related Data Home Medications ?Medication ?Instructions ?Recorded ?Confirmed ibuprofen 800 mg tablet 800 mg PO TID 03/31/21 03/29/25 omeprazole 20 mg capsule,delayed 20 mg PO DAILY 06/17/24 03/29/25 release lidocaine 5 % topical patch 1 patch topical DAILY 06/24/24 03/29/25 mecobalamin (vitamin B12) 10,000 1,000 mcg subcut .once a week 06/24/24 03/29/25 mcg solution for injection cyanocobalamin (vitamin B-12) mcg IM 02/26/25 03/29/25 1,000 mcg/mL injection solution Previous Rx's ?Medication ?Instructions ?Recorded dicyclomine 20 mg tablet 20 mg PO TID #20 tabs 06/11/24 albuterol sulfate 90 mcg/actuation 2 puff inhalation Q6H PRN 07/20/24 aerosol inhaler (Proventil HFA) shortness of breath or wheezing #6.7 grams cholecalciferol (vitamin D3) 25 50 mcg (2 x 25 mcg (1,000 unit)) 07/20/24 mcg (1,000 unit) capsule (Vitamin PO DAILY #30 caps D3) fexofenadine 180 mg tablet 180 mg PO DAILY #30 tabs 07/20/24 vitamin A palmitate 3,000 mcg 20,000 unit PO DAILY 30 days #60 07/20/24 (10,000 unit) tablet tabs thiamine HCl (vitamin B1) 100 mg 100 mg PO DAILY 90 days #90 tabs 07/31/24 tablet docusate sodium 100 mg capsule 100 mg PO BID 90 days #180 caps 08/13/24 (Colace) sucralfate 1 gram tablet (Carafate) 1 g PO BID PRN acid reflux #14 tabs 09/03/24 Shower Chair #1 ea 09/09/24 furosemide 40 mg tablet 60 mg (1.5 x 40 mg) PO DAILY #135 11/24/24 tabs Kneeling Scooter #1 ea 12/04/24 sennosides 8.6 mg capsule (senna) 8.6 mg PO BEDTIME PRN constipation 12/16/24 #30 caps ondansetron 4 mg disintegrating 4 mg PO Q6-8H PRN nausea and 01/03/25 tablet vomiting #10 tabs methocarbamol 500 mg tablet 500 mg PO TID PRN muscle spasm #90 02/26/25 tabs benzonatate 100 mg capsule 100 mg PO TID PRN cough #14 caps 03/10/25 cyclobenzaprine 5 mg tablet 5 mg PO Q8H PRN pain (scale score 03/12/25 7-10) 5 days #14 tabs lidocaine 5 % topical patch 1 patch topical DAILY PRN pain #30 03/12/25 (Lidoderm) ea naproxen 500 mg tablet 500 mg PO BID PRN pain 10 days #20 03/12/25 tabs hypoallergenic sanitary wipes #1 ea 03/18/25 levothyroxine 25 mcg tablet 25 mcg PO DAILY #30 tabs 04/02/25 Bed pads #100 ea 04/09/25 Depends sanitary pads #200 ea 04/09/25 wipes #2 ea 04/09/25 polymyxin B sulfate 10,000 1 drp ophthalmic (eye) Q3H 7 days 04/18/25 unit-trimethoprim 1 mg/mL eye drops #10 mL Allergies Allergy/AdvReac Type Severity Reaction Status Date / Time morphine Allergy Severe Shortness Verified 04/18/25 12:01 of Breath Seasonal Allergies Allergy Severe Sneezing Verified 04/18/25 12:01 latex (Latex) Allergy Intermediate ITCHY, Verified 04/18/25 12:01 RASH , AND FUNGUS oxycodone Allergy Intermediate Rash Verified 04/18/25 12:01 opium (anthroposophic) Allergy Unknown Hives Verified 04/18/25 12:01 Review of Systems Review of Systems: Yes all other systems are reviewed and are negative [facility] Past Medical History Attestation statement: The following information was validated with the patient. Source: old records reviewed Medical History Lipoma of chest wall Chronic diastolic (congestive) heart failure Anal fistula Sinus complaint Sterilization Kidney stone Acute appendicitis Vesicular dermatitis Enlarged lymph node Acute bacterial tonsillitis History of claustrophobia History of anxiety Hx of tendinitis Hx of bursitis History of knee problem Hx of chronic arthritis Family history of heart murmur History of asthma Surgical History History of hand surgery Hx of carpal tunnel repair H/O bilateral mastectomy History of kidney surgery Hx of tubal ligation Hx of tonsillectomy Hx of breast surgery Hx of appendectomy Hx of cholecystectomy Hx of knee surgery History of Achilles tendon repair Family History Family History Mother Accelerated hypertension Arthritis Cancer of stomach Father Arthritis Sister No problems noted. Sister Arthritis Accelerated hypertension Sister No problems noted. Sister No problems noted. Brother Overdose Brother HIV disease Son Asthma Son No problems noted. Son No problems noted. Son No problems noted. Daughter No problems noted. Social History Social History Housing: Apartment Alcohol intake: former Patient Tobacco Use Status: Former Tobacco user Tobacco use type: Cigarette Cigarettes Per Day: 1 Years Smoked: 30 e-Cigarette/Vaping Use: Never Used Second Hand Smoke Exposure: Yes Advance Directives: No Advance Directives Information Provided: Yes Do you have a plan to hurt others: No Plan service: No Current occupational status: unemployed Cognitive needs: Yes Hearing needs: No Vision needs: Yes Physical Exam ED Vital Signs: Vital Signs - 24 hr 04/18/25 11:57 04/18/25 14:21 04/18/25 15:04 Temperature 97.1 F 96.9 F 96.9 F Pulse Rate 66 57 57 Respiratory Rate 16 16 16 Blood Pressure 144/71 H 169/81 H 169/81 H Pulse Oximetry 94 100 100 Oxygen Delivery Method Room Air Room Air Room Air BMI result Body Mass Index 58.2 Appearance: Alert.?Oriented to person, place and time. No acute distress.?Normal affect. Eyes: Pupils equal, round and reactive to light.? EOMI. No nystagmus. Conjunctival injection erythema on the right Sclera is erythematous and injected. Visual acuity: Left - 20/30, Right - 20/30. Both 20/30 (corrected with prescription lenses). Fluorescein staining without uptake to suggest corneal abrasion. No chemosis. No hyphema. ENT: Pharynx normal.?? Neck: Normal inspection.? Neck supple.?? CVS: Heart sounds normal. Normal heart rate and rhythm.? Pulses normal.?? Respiratory: No respiratory distress.? Lung sounds clear to auscultation bilaterally?? Skin: Skin warm and dry.? Normal skin color.? Extremities: No lower extremity edema.? Neuro: Moves all extremities spontaneously. Sensation intact bilaterally. CN II-XII intact. No focal neuro deficits. Ambulates with normal steady gait. Course Course Course Narrative: RME: 54 yold female presents to the ED for right eye redness, itchy, and is painful. Patient states yesterday had bloody tears. patient feels like sand in her eyes. positive for right eye redness. Patient denies contact use. Medications Administered Discontinued Medications Generic Name Dose Route Start Last Admin Trade Name Freq PRN Reason Stop Dose Admin Fluorescein Sodium 1 strip 04/18/25 13:12 04/18/25 13:17 Fluorescein Sodium Strip EYE-RIGHT 04/18/25 13:13 1 strip ONCE ONE Administration Tetracaine HCl 1 drop 04/18/25 13:12 04/18/25 13:17 Tetracaine Hcl/Pf 0.5% Oph Génesis 4 Ml Drops EYE-RIGHT 04/18/25 13:13 1 drop ONCE ONE Administration Medical Decision Making Medical Decision Making MDM Narrative: Patient is a 54-year-old female who presents emergency department for evaluation of red itchy eye with acute drainage and previous foreign body sensation as per HPI. Overall well-appearing, nontoxic, afebrile. Conjunctiva is erythematous and injected as well as sclera. No painful hordeolum or painless chalazion on examination. Fluorescein staining without evidence of uptake to suggest corneal abrasion, ulcer, or hepatic dendrite. No evidence of foreign body on examination, lid eversion is negative. No subconjunctival hemorrhage. No associated unilateral headache, fixed pupil, associated vomiting, or increased intra-ocular pressure to suggest acute angle glaucoma. No periorbital edema erythema or warmth to suggest periorbital cellulitis, no painful EOMI to suggest orbital cellulitis. Not described as a severe constant boring pain worse at night in the morning, nonradiating, to suggest scleritis. No ciliary flushing or consensual photophobia to suggest uveitis/iritis. Atraumatic in nature, not consistent with penetrating injury or globe rupture additionally no hyphema. No painless acute loss of vision to suggest retinal detachment, vitreous detachment for hemorrhage. At this time most consistent with conjunctivitis for which a prescription for antibiotics has been sent to the pharmacy. Given strict return precautions. All questions answered. Stable for discharge Differential Diagnosis Differential Diagnoses: The differential diagnosis associated with the presentation includes (See narrative above) External Record Review External record reviewed: Outpatient record Prescription Management I considered prescription management with: Pain Medication and Antibiotic Chronic Conditions Patient?s care impacted by: Other (See PMFSH) Discharge Plan Discharge Clinical Impression: Bacterial conjunctivitis Patient Disposition: Home, Self-Care Instructions: Conjunctivitis (ED) Additional Instructions: Warm moist compresses to the eye 3-4 times daily. You may use lid scrubs bought especially at the pharmacy or warm water with mild non scented soap such as baby shampoo to scrub the eyelids. I have sent a prescription for antibiotic drops to the pharmacy. Please complete the entire course. Follow-up with your primary care doctor. Seek re-evaluation if you develop new or worsening symptoms or concerns which include but is not limited to fevers, chills, increasing redness pain or swelling, particularly to area surrounding the eye or if you feel pressure behind the eye, vision changes, dizziness, headaches. Prescriptions: New polymyxin B sulf-trimethoprim 10,000 unit- 1 mg/mL drops 1 drp ophthalmic (eye) Q3H 7 Days Qty: 10 0RF Rx Instructions: while awake; do not exceed 6 doses in 24 hours No Action thiamine HCl (vitamin B1) 100 mg tablet 100 mg PO DAILY 90 Days Qty: 90 1RF docusate sodium [Colace] 100 mg capsule 100 mg PO BID 90 Days Qty: 180 0RF (DME) Shower Chair Misc See Rx Instructions .Route Qty: 1 0RF Rx Instructions: As directed senna 8.6 mg capsule 8.6 mg PO BEDTIME PRN (Reason: constipation) Qty: 30 0RF benzonatate 100 mg capsule 100 mg PO TID PRN (Reason: cough) Qty: 14 0RF (DME) hypoallergenic sanitary wipes See Rx Instructions .Route .MEDSUPPLY Qty: 1 1RF Rx Instructions: As directed levothyroxine 25 mcg tablet 25 mcg PO DAILY Qty: 30 0RF (DME) Depends sanitary pads See Rx Instructions .Route .MEDSUPPLY Qty: 200 11RF Rx Instructions: As directed (DME) wipes See Rx Instructions .Route .MEDSUPPLY Qty: 2 11RF Rx Instructions: As directed (DME) Bed pads See Rx Instructions .Route .MEDSUPPLY Qty: 100 11RF Rx Instructions: As directed dicyclomine 20 mg tablet 20 mg PO TID Qty: 20 0RF ondansetron 4 mg tablet,disintegrating 4 mg PO Q6-8H PRN (Reason: nausea and vomiting) Qty: 10 0RF lidocaine [Lidoderm] 5 % adhesive patch,medicated 1 patch topical DAILY MDD remove after 12 hours PRN (Reason: pain) Qty: 30 0RF Rx Instructions: leave on most painful area for up to 12 hrs naproxen 500 mg tablet 500 mg PO BID PRN (Reason: pain) 10 Days Qty: 20 0RF cyclobenzaprine 5 mg tablet 5 mg PO Q8H PRN (Reason: pain (scale score 7-10)) 5 Days Qty: 14 0RF sucralfate [Carafate] 1 gram tablet 1 g PO BID PRN (Reason: acid reflux) Qty: 14 0RF omeprazole 20 mg capsule,delayed release(DR/EC) 20 mg PO DAILY ibuprofen 800 mg tablet 800 mg PO TID cyanocobalamin (vitamin B-12) 1,000 mcg/mL solution IM methocarbamol 500 mg tablet 500 mg PO TID PRN (Reason: muscle spasm) Qty: 90 1RF Rx Instructions: No driving while taking this medication. Do no take with alcohol or other INTERIOR DESIGN PROFESSION[employer] Depressants lidocaine 5 % adhesive patch,medicated 1 patch topical DAILY Rx Instructions: leave on most painful area for up to 12 hrs mecobalamin (vitamin B12) 10,000 mcg recon soln 1,000 mcg subcut .once a week albuterol sulfate [Proventil HFA] 90 mcg/actuation HFA aerosol inhaler 2 puff inhalation Q6H PRN (Reason: shortness of breath or wheezing) Qty: 6.7 0RF cholecalciferol (vitamin D3) [Vitamin D3] 25 mcg (1,000 unit) capsule 50 mcg PO DAILY Qty: 30 3RF fexofenadine 180 mg tablet 180 mg PO DAILY Qty: 30 3RF vitamin A palmitate 3,000 mcg (10,000 unit) tablet 20,000 unit PO DAILY 30 Days Qty: 60 0RF furosemide 40 mg tablet 60 mg PO DAILY Qty: 135 1RF (DME) Kneeling Scooter See Rx Instructions .ROUTE .MEDSUPPLY Qty: 1 0RF Rx Instructions: As directed Referrals: Kirstin Reyes PA-C [Primary Care Provider, Internal Medicine] Interventions: ED Discharge Assessment Last Done: 04/18/25 15:04 Discharge Date/Time: 04/18/25 15:04 Print Language: Croatian
[2025-04-18] MEDS: Tetracaine HCl/PF 0.5% Oph Sol 4 ML DROPS 1 DROP EYE-RIGHT (13:17)
[2025-04-18] MEDS: Fluorescein Sodium STRIP 1 STRIP EYE-RIGHT (13:17)
--- NOTE | 2025-04-18 14:11 | PC.NURSE ---
Deonna,POLE PEELING MACHINE OPERATOR HELPER to bedside for eye exam with Pierce Lamp.
[2025-04-18 14:21] VITALS: BP 169/81; PULSE 57; RESP 16; TEMP 36.1; O2SAT 100
[2025-04-18 15:04] VITALS: BP 169/81; PULSE 57; RESP 16; TEMP 36.1; O2SAT 100
== END 2025-04-18 15:04 | disposition home or self-care (01) ==
PROVIDERS: Emergency Provider Emergency Medicine
DX: H10.89 Other conjunctivitis (principal); Z79.899 Other long term (current) drug therapy; Z87.891 Personal history of nicotine dependence
CPT/HCPCS: 99283

== ENCOUNTER 2025-04-27 06:51 | Outpatient (REF) | payer OTHER, SELFPAY ==
--- NOTE | ~2025-04-27 | FL_ITS ---
EXAMINATION: FL GUIDANCE ONLY HISTORY: M25.561 pain in right knee COMPARISON: None available. TECHNIQUE: Fluoroscopy time: 0.1 minutes. Cumulative Dose: 7.55 mGy. DAP: 0.0786 mGym2 Images: 1. FINDINGS: A single fluoroscopic spot film of the right knee in the AP projection demonstrates a needle and contrast material. FL/FL guidance in treatment room IMPRESSION: Fluoroscopy during procedure. Please see procedure report for additional information. Electronically signed by: Gonzalez Chin MD 04/27/2025 03:22 PM EDT
== END 2025-04-27 06:52 | disposition home or self-care (01) ==
LOC: CF 06:51
PROVIDERS: Visit Provider Anesthesiology
DX: M25.561 Pain in right knee (principal); M17.11 Unilateral primary osteoarthritis, right knee
CPT/HCPCS: 20610; J2795; J3301; Q9967

== ENCOUNTER 2025-04-27 13:14 | Outpatient (AMB) | payer OTHER, SELFPAY ==
--- NOTE | 2025-04-27 13:27 | MHC.OFFVIS ---
Vital Signs 04/27/25 13:28 Weight 394 lb BP 155/85 H Blood Pressure Location Rt brachial Position Sitting Respiration 18 Pulse 62 Pulse Source Pulse Oximeter Pulse Oximetry (%) 97 Oxygen Delivery Method Room Air Intake Visit Reasons: RIGHT INTRA-ARTICULAR KNEE INJECTION Pump Servicer Supervisor Required: Yes Pump Servicer Supervisor Services: Pump Servicer Supervisor Present Pump Servicer Supervisor Name: family Allergies morphine Allergy (Severe, Verified 04/27/25 13:29) Shortness of Breath Seasonal Allergies Allergy (Severe, Verified 04/27/25 13:29) Sneezing latex (Latex) Allergy (Intermediate, Verified 04/27/25 13:29) ITCHY, RASH , AND FUNGUS oxycodone Allergy (Intermediate, Verified 04/27/25 13:29) Rash opium (anthroposophic) Allergy (Unknown, Verified 04/27/25 13:29) Hives [facility] Medical History Lipoma of chest wall Chronic diastolic (congestive) heart failure Anal fistula Sinus complaint Sterilization Kidney stone Acute appendicitis Vesicular dermatitis Enlarged lymph node Acute bacterial tonsillitis History of claustrophobia History of anxiety Hx of tendinitis Hx of bursitis History of knee problem Hx of chronic arthritis Family history of heart murmur History of asthma Surgical History History of hand surgery Hx of carpal tunnel repair H/O bilateral mastectomy History of kidney surgery Hx of tubal ligation Hx of tonsillectomy Hx of breast surgery Hx of appendectomy Hx of cholecystectomy Hx of knee surgery History of Achilles tendon repair Family History Mother Accelerated hypertension Arthritis Cancer of stomach Father Arthritis Sister No problems noted. Sister Arthritis Accelerated hypertension Sister No problems noted. Sister No problems noted. Brother Overdose Brother HIV disease Son Asthma Son No problems noted. Son No problems noted. Son No problems noted. Daughter No problems noted. Social History Housing: Apartment Alcohol intake: former Patient Tobacco Use Status: Former Tobacco user Tobacco use type: Cigarette Cigarettes Per Day: 1 Years Smoked: 30 e-Cigarette/Vaping Use: Never Used Second Hand Smoke Exposure: Yes service: No Current occupational status: unemployed Cognitive needs: Yes Hearing needs: No Vision needs: Yes Female Reproductive History Menstrual Age of Menarche: 14 Physical Exam Vital Signs: Last Vital Signs Pulse 62 04/27/25 13:28 Resp 18 04/27/25 13:28 BP 155/85 H 04/27/25 13:28 Pulse Ox 97 04/27/25 13:28 Oxygen Delivery Method Room Air 04/27/25 13:28 Assessment & Plan Assessment & Plan (1) Osteoarthritis of right knee: Code(s): M17.11 - Unilateral primary osteoarthritis, right knee Category: Medical (2) Right knee pain: Code(s): M25.561 - Pain in right knee Category: Medical Plan Right intra-articular knee steroid injection. Patient came today to the operating room to receive steroid injection into her knees. Her original intention was to receive injection into both knees. Unfortunately this patient is severely morbidly obese and in my opinion large dose of steroids 80 mg which would require to be injected in both knees - can cause iatrogenic diabetes. The decision was made to do the only 1 injection of the knee today. Patient was offered the choice to choose between the right and the left knee injection. Patient chose to have right knee steroid injection. She was taken to the operating room where she was positioned supine on the operating table with right knee flexed, the anterior surface anterior lateral and anterior medial surface of the right knee was prepped with ChloraPrep and draped with sterile self adhesive utility towels. After that C-arm was brought over the operating field and sq picture of the knee joint was demonstrated on the screen. From anterior lateral into the central medial direction 22 gauge 3-1/2 inch needle was inserted through the skin and advanced to were the silhouette of the joint in retropatellar fashion. When the tip of the needle entered the joint center injection of the contrast was performed delineating arthrogram. After that injection of the ropivacaine 0.5% mixed with Kenalog 40 mg was performed into the knee. Upon completion of the injection the needle was removed and Band-Aid was applied. Patient tolerated the procedure well. Medications: Discontinued cyclobenzaprine Discontinued Reason: More recent result 5 mg PO Q8H 5 days PRN 14 tabs 0RF pain (scale score 7-10) Coding Level of Care Code Procedure Only Diagnoses Osteoarthritis of right knee M17.11 Right knee pain M25.561
[2025-04-27 13:28] VITALS: BP 155/85; PULSE 62; RESP 18; O2SAT 97
--- OUTSIDE RECORDS SUMMARY | 2025-04-27 14:22 | XMS_ITS | Clinical Summary ---
Author Organization [email or web address] [facility] Address [address] [place] [address] Care Team Providers Care Bindery Helper Name Role Phone Unavailable Primary Care Provider [...] patient's age to complete this topic Insurance [facility] [id number]
== END 2025-04-27 14:02 | disposition home or self-care (01) ==
LOC: HO.PMCPRC 13:14
PROVIDERS: Visit Provider Anesthesiology
DX: M17.11 Unilateral primary osteoarthritis, right knee (principal); M25.561 Pain in right knee
CPT/HCPCS: 20610; 77002

== ENCOUNTER 2025-04-29 09:49 | Outpatient (AMB) | payer OTHER, SELFPAY ==
--- NOTE | 2025-04-29 09:53 | A.OFFVIS_ITS ---
Vital Signs 04/29/25 09:54 Height 5 ft 9 in Weight 397 lb 4.368 oz BMI 58.7 BP 146/84 H Blood Pressure Location Lt brachial Position Sitting Pulse 83 Pulse Source Pulse Oximeter Pulse Oximetry (%) 97 Oxygen Delivery Method Room Air Intake Visit Reasons: Hypothyroidism, unspecified Intake Note: New patient present today for Hypothyroidism, unspecified. Regional Construction Manager Required: Yes Regional Construction Manager Language: Brim Buster Services: Regional Construction Manager Present Regional Construction Manager Name: Flaquito [id number] Information Interpreted: non-clinical & clinical Accompanied by: Self / Same As Patient Allergies morphine Allergy (Severe, Verified 04/29/25 09:58) Shortness of Breath Seasonal Allergies Allergy (Severe, Verified 04/29/25 09:58) Sneezing latex (Latex) Allergy (Intermediate, Verified 04/29/25 09:58) ITCHY, RASH , AND FUNGUS oxycodone Allergy (Intermediate, Verified 04/29/25 09:58) Rash opium (anthroposophic) Allergy (Unknown, Verified 04/29/25 09:58) Hives Medication List - Last Reconciled 04/29/25 by Luzma Godinez MD albuterol sulfate 90 mcg/actuation (Proventil HFA) 2 puffs inhalation Q6H PRN [Bed pads As directed] benzonatate 100 mg PO TID PRN cholecalciferol (vitamin D3) (Vitamin D3) 50 mcg (2 x 25 mcg (1,000 unit)) PO DAILY cyanocobalamin (vitamin B-12) mcg IM [Depends sanitary pads As directed] dicyclomine 20 mg PO TID docusate sodium (Colace) 100 mg PO BID 90 days fexofenadine 180 mg PO DAILY furosemide 60 mg (1.5 x 40 mg) PO DAILY [hypoallergenic sanitary wipes As directed] ibuprofen 800 mg PO TID [Kneeling Scooter As directed] levothyroxine 25 mcg PO DAILY lidocaine 5% (Lidoderm) 1 patch topical DAILY PRN MDD remove after 12 hours lidocaine 5% 1 patch topical DAILY mecobalamin (vitamin B12) 1,000 mcg subcut .once a week methocarbamol 500 mg PO TID PRN naproxen 500 mg PO BID PRN 10 days omeprazole 20 mg PO DAILY ondansetron 4 mg PO Q6-8H PRN polymyxin B sulf-trimethoprim 10,000 unit- 1 mg/mL 1 drp ophthalmic (eye) Q3H 7 days sennosides (senna) 8.6 mg PO BEDTIME PRN Shower Chair As directed sucralfate (Carafate) 1 g PO BID PRN thiamine HCl (vitamin B1) 100 mg PO DAILY 90 days vitamin A palmitate 20,000 units PO DAILY 30 days [wipes As directed] HPI Comments Details: 54-year-old female coming in today for initial evaluation of subclinical hypothyroidism. Subclinical Hypothyroidism first diagnosed January 2025 Most recent blood work from 02/26/2025 shows TSH was elevated at 8.35, free T4 0.76. Took levothyroxine 25 mcg for a week and says was getting headaches with the medication plus body aches so she stopped it after taking it for a week in February 2025. Prior to that in November 2024 she was noted to have a low TSH of 0.28, free T4 1.27. Reports constipation since 2 weeks. reports some heat intolerance? reports tiredness. body aches. reports hair loss. some palpitations here and there. reports tremors. still getting periods monthly. LMP 04/19/25 Patient currently denies changes in appearance of eyes or vision changes, tremors, increased diaphoresis or dry skin. ? Patient reports difficulty swallowing for about a week , some intermittent hoarsenss. Patient denies any history of childhood neck radiation. Denies having ever used lithium, amiodarone or biotin supplements. Patient denies any family history of thyroid cancer . Sister has thyroid disease. Physical exam General: sitting comfortably in no acute distress HEENT: normocephalic/atraumatic, moist oral mucosa Neck: supple, palpable right-sided nodule Cardiac: normal heart sounds Pulm: normal breath sounds B/L, no added breath sounds Abd: not distended, no tenderness Extremities: no edema, no signs of myxedema, tremors noted on exam Laboratory Tests 04/03/21 07/24/24 12/04/24 10:55 08:41 11:41 TSH 4.11 H 7.63 H 0.28 L Free T4 0.80 1.27 02/26/25 10:41 TSH 8.35 H Free T4 0.76 PFSH Medical History Lipoma of chest wall Chronic diastolic (congestive) heart failure Anal fistula Sinus complaint Sterilization Kidney stone Acute appendicitis Vesicular dermatitis Enlarged lymph node Acute bacterial tonsillitis History of claustrophobia History of anxiety Hx of tendinitis Hx of bursitis History of knee problem Hx of chronic arthritis Family history of heart murmur History of asthma Surgical History History of hand surgery Hx of carpal tunnel repair H/O bilateral mastectomy History of kidney surgery Hx of tubal ligation Hx of tonsillectomy Hx of breast surgery Hx of appendectomy Hx of cholecystectomy Hx of knee surgery History of Achilles tendon repair Family History Mother Accelerated hypertension Arthritis Cancer of stomach Father Arthritis Sister No problems noted. Sister Arthritis Accelerated hypertension Sister No problems noted. Sister No problems noted. Brother Overdose Brother HIV disease Son Asthma Son No problems noted. Son No problems noted. Son No problems noted. Daughter No problems noted. Social History Housing: Apartment Alcohol intake: former Patient Tobacco Use Status: Former Tobacco user Tobacco use type: Cigarette Cigarettes Per Day: 1 Years Smoked: 30 e-Cigarette/Vaping Use: Never Used Second Hand Smoke Exposure: Yes service: No Current occupational status: unemployed Cognitive needs: Yes Hearing needs: No Vision needs: Yes Female Reproductive History Menstrual Age of Menarche: 14 Assessment & Plan Assessment & Plan (1) Subclinical hypothyroidism: Code(s): E03.8 - Other specified hypothyroidism Category: Medical Plan: 54-year-old female coming in today for initial evaluation of subclinical hypothyroidism. Blood work from February 2025 showed TSH was elevated at 8.35, normal free T4 of which was on the lower side of normal at 0.76. She does have a lot of symptoms of tiredness, body aches, however when she was started on levothyroxine 25 mcg daily, she reported headaches and worsening of body aches that has been better since she stopped taking the medication after taking it for about a week in February 2025. At this point she is not on the levothyroxine. I will have her repeat labs. She does have tremors on exam and a prominent thyroid gland, and interestingly back in November 2024 the TSH was low at 0.26, I am wondering if she has a underlying autoimmune disease fluctuating between hypothyroidism and hyperthyroidism. At this point we would need repeat labs in I will also do an extended antibody panel. I told her that her symptoms do correlate with presentation of underactive thyroid and we should try the medication once more. I told her to give the medication at least about 6 weeks to see if it makes her feel better if she is able to tolerate the side effects of headache and body aches. Patient is willing to give it another try. She already has a prescription for levothyroxine 25 mcg daily. Plan: -ordered TSH, free T4, total T3, TSH receptor, TSI and TPO antibodies to be done today -restart levothyroxine 25 mcg daily -we will order another set of blood work to be done in 6 weeks prior to follow up in 6 weeks (2) Thyromegaly: Code(s): E01.0 - Iodine-deficiency related diffuse (endemic) goiter Category: Medical Plan: On exam she does have a prominent thyroid gland with a possibly a palpable nodule on the right side. She is also complaining of some degree of compressive symptoms. I will order an ultrasound of the thyroid. Plan: -Ordered ultrasound of the thyroid -follow up in 6 weeks to discuss results Plan I spent 45 minutes in reviewing the record, seeing the patient and documenting in the medical record. Orders: Orders US thyroid Today E01.0 - Iodine-deficiency related diffuse (endemic) goiter, E03.8 - Other specified hypothyroidism Thyroid Stimulating Hormone Today E01.0 - Iodine-deficiency related diffuse (endemic) goiter, E03.8 - Other specified hypothyroidism, E03.9 - Hypothyroidism, unspecified Free T4 (Free Thyroxine) Today E01.0 - Iodine-deficiency related diffuse (endemic) goiter, E03.8 - Other specified hypothyroidism, E03.9 - Hypothyroidism, unspecified Triiodothyronine T3 Total Today E01.0 - Iodine-deficiency related diffuse (endemic) goiter, E03.8 - Other specified hypothyroidism, E03.9 - Hypothyroidism, unspecified Thyroid Peroxidase Antibodies Today E01.0 - Iodine-deficiency related diffuse (endemic) goiter, E03.8 - Other specified hypothyroidism, E03.9 - Hypothyroidism, unspecified Thyrotropin Receptor Antibody Today E01.0 - Iodine-deficiency related diffuse (endemic) goiter, E03.8 - Other specified hypothyroidism, E03.9 - Hypothyroidism, unspecified Thyroid Stimulating Immunoglob Today E01.0 - Iodine-deficiency related diffuse (endemic) goiter, E03.8 - Other specified hypothyroidism, E03.9 - Hypothyroidism, unspecified Patient Instructions: Do blood work today Restart levothyroxine 25 mcg daily, try to give it a chance for at leats 6 weeks to see if you feel better take it first thing in the morning on an empty stomach , wait an hour before eating breakfast or coffee or tea Do ultrasound of the thyroid someone will call you to schedule this Do another set of blood work prior to your next follow up in 6 weeks H?gase un an?lisis de jori hoy. Reinicie la levotiroxina 25 mcg al d?a. Intente tomarla isidro al menos 6 semanas para sherita si se siente mejor. T?hannah a primera hora de la ma?nic en ayunas. Espere adi hora antes de desayunar, andres caf? o t?. H?gase adi ecograf?a de tiroides; alguien le llamar? para programarla. H?gase otro an?lisis de jroi antes de bazan pr?xima rajeev de seguimiento en 6 semanas. Coding Level of Care Code New Pt Level 4 (20683) Diagnoses Subclinical hypothyroidism E03.8 Thyromegaly E01.0 Time Spent (min) 45
[2025-04-29 09:54] VITALS: BP 146/84; PULSE 83; O2SAT 97; BMI 58.7
--- OUTSIDE RECORDS SUMMARY | 2025-04-29 10:25 | XMS_ITS | Clinical Summary ---
Author Organization [employer] [facility] Address [address] [place] [address] Care Team Providers Care Ceramic Worker Name Role Phone Unavailable Primary Care Provider [...] patient's age to complete this topic Insurance [facility] C3
== END 2025-04-29 10:25 | disposition home or self-care (01) ==
LOC: HO.ENCR 09:50
PROVIDERS: Visit Provider Student in an Organized Health Care Education/Training Program
DX: E03.8 Other specified hypothyroidism (principal); E01.0 Iodine-deficiency related diffuse (endemic) goiter
CPT/HCPCS: 99204

== ENCOUNTER 2025-04-29 09:49 | Outpatient (REF) | payer OTHER, SELFPAY ==
--- OUTSIDE RECORDS SUMMARY | 2025-04-29 11:15 | XMS_ITS | Patient Health Record ---
Author Organization [facility] Address [address] [place] [address] Care Team Providers Care Filter Plant Operator Name Role Phone Mustapha Godinez Primary Care Provider Unavailab Massimo Fagan Unavailable Allergies Allergen (clinical drug ingredient) Drug/Non Drug Allergy documented on EMR Reaction Allergy Type Onset Date Status acetaminophen acetaminophen (uncoded) rash Allergy Active oxycodone oxycodone (uncoded) rash Allergy Active morphine Morphine Sulfate Unknown Drug Allergy Active acetaminophen / oxycodone Percocet Unknown Drug Allergy Active LATEX Unknown Drug Allergy Active Reason For Referral No Information Medications Medication SIG (Take, Route, Frequency, Duration) Notes [...] eeded Orally every 6 hrs Not-Taking Cholecalciferol 10546 UNIT Orally Not-Taking traMADol HCl 50 MG 1 tablet as needed Orally every 6 hrs Active Social History Tobacco use other than smoking: Question Answer Notes Are you an other tobacco user? No Problems Problem Type SNOMED Code ICD Code Onset Dates Problem Status W/U Status Risk Notes Problem Palpitations (53719525) Palpitations (R00.2) Active confirmed Problem Impaired fasting glucose (459268245) Impaired fasting glucose (R73.01) Active confirmed Problem Tobacco use (582396784) Tobacco use (Z72.0) Active confirmed Problem Obesity (420507138) Obesity (E66.9) Active confirmed Problem Anxiety (99068985) Anxiety (F41.9) Active confirmed Problem Chest pain (23002208) Chest pain (R07.9) Active confirmed Problem Obstructive sleep apnea (99845880) Obstructive sleep apnea (G47.33) Active confirmed Problem Vitamin D deficiency (70543596) Vitamin D deficiency (E55.9) Active confirmed Problem Posttraumatic stress disorder (62125574) Posttraumatic stress disorder (F43.10) Active confirmed Plan Of Treatment Pending Test Test Name Order Date Electrocardiogram [...] Date [employer] [address] [place] [id number] Ladonna Szymanski Self - patient is the insured Medical (General) History Medical History History ICD Code palpitations chest pain renal calculi obstructive sleep apnea vitamin D deficiency vitamin B deficiency uterine fibroids bipolar disorder anxiety and depression posttraumatic stress disorder obesity Surgical History Surgery Date(Month/Year) tonsillectomy tubal ligation lithotripsy for renal calculi
--- OUTSIDE RECORDS SUMMARY | 2025-04-29 11:15 | XMS_ITS | Patient Health Record ---
Author Organization [facility] Address [address] [place], [place] [id number] Care Team Providers Care Elastic Attacher Chainstitch Name Role Phone Yasmeen ROBERTSON, Verena Primary Care Provider Unava ilHarris Cox Unavailable Reason For Referral No Information Plan Of Treatment No Information Insurance Providers Payer Name Payer Address Payer Phone Subscriber Number Group Number Insured Name Patient Relationship to Insured Coverage Start Date Coverage End Date Medicaid [address] [place] [phone] [id number] Ladonna Zavala Self - patient is the insured
[2025-04-29 12:20] LABS: Free T4 (Free Thyroxine) 0.93 ng/dL (0.71-1.85); Thyroid Stimulating Hormone 6.02 uIU/mL (0.32-4.0)
== END 2025-04-29 09:50 | disposition home or self-care (01) ==
LOC: HO.LAB 09:49
PROVIDERS: Visit Provider Student in an Organized Health Care Education/Training Program
DX: E01.0 Iodine-deficiency related diffuse (endemic) goiter (principal)
CPT/HCPCS: 36415; 83520; 84439; 84443; 84445; 84480; 86376; 99202

== ENCOUNTER 2025-05-11 08:59 | Outpatient (AMB) | payer OTHER, SELFPAY ==
--- NOTE | 2025-05-11 09:15 | MHC.OFFVISWM ---
VS Expanded 05/11/25 09:29 BP 145/67 H Blood Pressure Location Lt brachial Blood Pressure Position Sitting Pulse 76 Pulse Source Pulse Oximeter Temp 98.2 F Temperature Source Temporal Artery Scan Pulse Oximetry 96 Oxygen Delivery Method Room Air Height 5 ft 8 in Weight 395 lb 2 oz BMI 60.1 Body Fat % 47.2 Body Fat Mass 186.2 Fat Free Mass 208.8 Visceral Fat Rating 20 Body Water % 37.7 Body Water Mass 148.8 Muscle Mass/Score 198.4 Basal Metabolic Rate/Score 3,063 Intake Visit Reasons: (OV) F/U SWL C Developer Required: Yes C Developer Services: C Developer Present C Developer Name: hospital cmi Allergies morphine Allergy (Severe, Verified 04/29/25 09:58) Shortness of Breath Seasonal Allergies Allergy (Severe, Verified 04/29/25 09:58) Sneezing latex (Latex) Allergy (Intermediate, Verified 04/29/25 09:58) ITCHY, RASH , AND FUNGUS oxycodone Allergy (Intermediate, Verified 04/29/25 09:58) Rash opium (anthroposophic) Allergy (Unknown, Verified 04/29/25 09:58) Hives Medication List - Last Reconciled 05/11/25 by NICCI Hannah albuterol sulfate 90 mcg/actuation (Proventil HFA) 2 puffs inhalation Q6H PRN [Bed pads As directed] benzonatate 100 mg PO TID PRN cholecalciferol (vitamin D3) (Vitamin D3) 50 mcg (2 x 25 mcg (1,000 unit)) PO DAILY cyanocobalamin (vitamin B-12) mcg IM [Depends sanitary pads As directed] dicyclomine 20 mg PO TID docusate sodium (Colace) 100 mg PO BID 90 days fexofenadine 180 mg PO DAILY furosemide 60 mg (1.5 x 40 mg) PO DAILY [hypoallergenic sanitary wipes As directed] ibuprofen 800 mg PO TID [Kneeling Scooter As directed] levothyroxine 25 mcg PO DAILY lidocaine 5% (Lidoderm) 1 patch topical DAILY PRN MDD remove after 12 hours lidocaine 5% 1 patch topical DAILY mecobalamin (vitamin B12) 1,000 mcg subcut .once a week methocarbamol 500 mg PO TID PRN naproxen 500 mg PO BID PRN 10 days omeprazole 20 mg PO DAILY ondansetron 4 mg PO Q6-8H PRN polymyxin B sulf-trimethoprim 10,000 unit- 1 mg/mL 1 drp ophthalmic (eye) Q3H 7 days sennosides (senna) 8.6 mg PO BEDTIME PRN Shower Chair As directed sucralfate (Carafate) 1 g PO BID PRN thiamine HCl (vitamin B1) 100 mg PO DAILY 90 days vitamin A palmitate 20,000 units PO DAILY 30 days [wipes As directed] HPI Comments Details: 55-year-old female who presents to the office today in follow-up for surgical weight loss. She was initially seen on 07/10/2024 with a weight of 381 lb. She was next seen in September 2024, at that time her weight was 375.2 lb with a BMI of 55.4. She was last seen in the office in December 2024 with a weight of 377 lb. Weight today is 395.2 lb with a BMI of 58.4. She has gained 14.2 lb since initiating the weight loss program in June 2024. Since last visit approximately a month ago, she was seen by her primary care physician regarding elevated TSH, repeat testing was requested. She is scheduled for follow up in June. She was seen by Cardiology and CT angio of the heart. She states that since starting her thyroid medication, she has been experiencing difficulty with nausea, headaches, not feeling well, lack of appetite. She discuss this with endocrinology who stated that she still needs to take the medications. They did blood work, but no further recommendations were made. She is to follow up with them as scheduled. She has eye injections in March, she had colonoscopy May 05 at [facility]. She states she using Premier protein ready to drink shakes, she has been using 2 shakes, she has her 1st shake in the morning, followed by a meal at 11 with a eggs and toast, coffee followed by another shake at 1, she then has dinner at 4 pm. Drinking approximately 80-96 oz of water. She feels as though this may be too much given her ongoing medical issues Recommended Meal plan: Orgain protein powder 7-9 2 scoops in 8 oz water 10-12 1 scoop 1 pm meal with 8 forks of protein and 8 of veggies (not measuring) 2-4 1 scoop 5 pm another meals with 8 forks protein and 8 forks veggies 7-9 pm 2 scoops Exercise plan: just doing upper body. walking outside, not tracking calories. [facility] Medical History (Updated 04/29/25 @ 10:15 by Luzma Godinez MD) Subclinical hypothyroidism Thyromegaly Lipoma of chest wall Chronic diastolic (congestive) heart failure Anal fistula Sinus complaint Sterilization Kidney stone Acute appendicitis Vesicular dermatitis Enlarged lymph node Acute bacterial tonsillitis History of claustrophobia History of anxiety Hx of tendinitis Hx of bursitis History of knee problem Hx of chronic arthritis Family history of heart murmur History of asthma Surgical History History of hand surgery Hx of carpal tunnel repair H/O bilateral mastectomy History of kidney surgery Hx of tubal ligation Hx of tonsillectomy Hx of breast surgery Hx of appendectomy Hx of cholecystectomy Hx of knee surgery History of Achilles tendon repair Family History Mother Accelerated hypertension Arthritis Cancer of stomach Father Arthritis Sister No problems noted. Sister Arthritis Accelerated hypertension Sister No problems noted. Sister No problems noted. Brother Overdose Brother HIV disease Son Asthma Son No problems noted. Son No problems noted. Son No problems noted. Daughter No problems noted. Social History Housing: Apartment Alcohol intake: former Patient Tobacco Use Status: Former Tobacco user Tobacco use type: Cigarette Cigarettes Per Day: 1 Years Smoked: 30 e-Cigarette/Vaping Use: Never Used Second Hand Smoke Exposure: Yes service: No Current occupational status: unemployed Cognitive needs: Yes Hearing needs: No Vision needs: Yes Female Reproductive History Menstrual Age of Menarche: 14 Physical Exam Const General: healthy appearing and no acute distress Resp Effort & Inspection: normal respiratory effort Auscultation: clear to auscultation bilaterally Cardio Rate: regular rate Rhythm: regular rhythm GI Auscultation: normal bowel sounds Extrem General: Yes normal to inspection Assessment & Plan Assessment & Plan (1) Morbid obesity with BMI of 50.0-59.9, adult: Code(s): E66.01 - Morbid (severe) obesity due to excess calories; Z68.43 - Body mass index [BMI] 50.0-59.9, adult Category: Medical Plan: Given patient's ongoing medical issues, she is going to take a break from the program. She certainly may return at any time in the future. She inquired about GLP 1 medications, and while these may be helpful, given her ongoing adverse reactions to thyroid medications, this certainly could be added once she stabilizes.
--- OUTSIDE RECORDS SUMMARY | 2025-05-11 09:17 | XMS_ITS | Clinical Summary ---
Author Organization [employer] [facility] Address [address] [place] [address] Care Team Providers Care Busser Name Role Phone Unavailable Primary Care Provider [...] season) 2024 02/17/2021, 01/26/2021 Influenza Vaccine (#1) 2025 3, 08/06/2022, 09/26/2021, Additional history exists Mammogram [...] patient's age to complete this topic Insurance [facility] C3
[2025-05-11 09:29] VITALS: BP 145/67; PULSE 76; TEMP 36.8; O2SAT 96; BMI 60.1
== END 2025-05-11 09:46 | disposition home or self-care (01) ==
LOC: HO.HBS 09:00
PROVIDERS: Visit Provider Physician Assistant Surgical
DX: E66.01 Morbid (severe) obesity due to excess calories (principal); Z68.43 Body mass index [BMI] 50.0-59.9, adult
CPT/HCPCS: 99213

== ENCOUNTER → 2025-05-11 08:59 | Outpatient (BNVA) | payer OTHER, SELFPAY | PROVIDERS: Visit Provider Physician Assistant Surgical | DX: E66.01 Morbid (severe) obesity due to excess calories (principal); Z68.43 Body mass index [BMI] 50.0-59.9, adult | CPT/HCPCS: 99212 ==

== ENCOUNTER 2025-05-12 09:55 | Outpatient (AMB) | payer OTHER, SELFPAY ==
[2025-05-12 09:56] VITALS: BP 163/87; PULSE 73; RESP 16; O2SAT 96; BMI 60.1
--- NOTE | 2025-05-12 09:56 | MHC.OFFVIS ---
Vital Signs 05/12/25 09:56 Height 5 ft 8 in Weight 395 lb BMI 60.1 BP 163/87 H Blood Pressure Location Lt radial Position Sitting Respiration 16 Pulse 73 Pulse Source Pulse Oximeter Pulse Oximetry (%) 96 Oxygen Delivery Method Room Air Intake Visit Reasons: RIGHT INTRA-ARTICULAR KNEE INJECTION Phosphatic Fertilizer Supervisor Required: Yes Phosphatic Fertilizer Supervisor Name: Wendy Gallagher Accompanied by: Self / Same As Patient Allergies morphine Allergy (Severe, Verified 05/12/25 10:04) Shortness of Breath Seasonal Allergies Allergy (Severe, Verified 05/12/25 10:04) Sneezing latex (Latex) Allergy (Intermediate, Verified 05/12/25 10:04) ITCHY, RASH , AND FUNGUS oxycodone Allergy (Intermediate, Verified 05/12/25 10:04) Rash opium (anthroposophic) Allergy (Unknown, Verified 05/12/25 10:04) Hives HPI Comments Details: Visit completed with line crew supervisor Aileen Nguyen. The patient is a 55-year-old female presenting with chronic pain management concerns, specifically involving the knees and hip. The patient reports a history of right knee pain, which was previously managed with an intra-articular injection on April 27, 2025, resulting in a pain level of 0/10 post-procedure. The left knee is also affected, and the patient has agreed to proceed with an injection for this knee as well. The patient experiences left hip pain, which is described as severe and impacting her ability to sleep. She reports a history of an accident that may have contributed to this pain, and previous imaging showed fractures in the area. The patient has been referred to sports medicine but has not yet scheduled an appointment. She previously received GTB and trigger point injections to the left lower back which provided relief for 2 weeks but pain has since returned. - Onset: Chronic pain in knees and hip, exacerbated post-accident - Quality: Severe, impacting sleep - Location: Right knee, left knee, hip - Exacerbating factors: Movement, lack of effective pain relief - Relieving factors: Injections provide temporary relief - Affect: Pain is impacting sleep and daily activities - Analgesia: Injections provide temporary relief - Adverse Effects: None reported - Activities of Daily Living: Pain limits mobility and sleep - Aberrant Drug Related Behaviors: None reported [facility] Medical History (Updated 05/12/25 @ 10:40 by Viky Avila, CHANNEL ROUGHER, ASP NET C DEVELOPER) Subclinical hypothyroidism Thyromegaly Lipoma of chest wall Chronic diastolic (congestive) heart failure Anal fistula Sinus complaint Sterilization Kidney stone Acute appendicitis Vesicular dermatitis Enlarged lymph node Acute bacterial tonsillitis History of claustrophobia History of anxiety Hx of tendinitis Hx of bursitis History of knee problem Hx of chronic arthritis Family history of heart murmur History of asthma Surgical History History of hand surgery Hx of carpal tunnel repair H/O bilateral mastectomy History of kidney surgery Hx of tubal ligation Hx of tonsillectomy Hx of breast surgery Hx of appendectomy Hx of cholecystectomy Hx of knee surgery History of Achilles tendon repair Family History Mother Accelerated hypertension Arthritis Cancer of stomach Father Arthritis Sister No problems noted. Sister Arthritis Accelerated hypertension Sister No problems noted. Sister No problems noted. Brother Overdose Brother HIV disease Son Asthma Son No problems noted. Son No problems noted. Son No problems noted. Daughter No problems noted. Social History Housing: Apartment Alcohol intake: former Patient Tobacco Use Status: Former Tobacco user Tobacco use type: Cigarette Cigarettes Per Day: 1 Years Smoked: 30 e-Cigarette/Vaping Use: Never Used Second Hand Smoke Exposure: Yes service: No Current occupational status: unemployed Cognitive needs: Yes Hearing needs: No Vision needs: Yes Female Reproductive History Menstrual Age of Menarche: 14 Review of Systems Const Details: - Musculoskeletal: Reports severe hip pain, knee pain - Cardiovascular: Reports high blood pressure - General: Reports leg swelling Physical Exam Vital Signs: Last Vital Signs Pulse 73 05/12/25 09:56 Resp 16 05/12/25 09:56 BP 163/87 H 05/12/25 09:56 Pulse Ox 96 05/12/25 09:56 Oxygen Delivery Method Room Air 05/12/25 09:56 BMI result Body Mass Index 60.1 General: awake, alert, oriented. Answers questions appropriately. Fully engaged in examination. Obese. Skin: warm, dry, intact HEENT: Normocephalic. Hearing intact. Cardiac: External chest normal in appearance. Respiratory: No cough, audible wheezing or stridor. Abdomen: without gross distension. MS: No obvious swelling or deformities. Able to transition from sit to stand unassisted. Tenderness over lumbar musculature on the left Tenderness over left GTB Bilateral knees: positive crepitus. Tenderness along lateral and medial joint lines. Neurological: Oriented to person, place, time and situation. Thought process intact. No gait abnormalities appreciated. Psychiatric: Appropriate mood and affect. Good judgment and insight. Results Reviewed Results Reviewed: 02/2025 XR/XR lumbar spine 2-3V FINDINGS: There is a minimal levoconvex scoliosis, apex at L3. There is a normal lumbar lordosis. There is no subluxation. There is no compression deformity, acute fracture, or suspicious bone lesion. There is mild diffuse disc degeneration present. Facets are normally aligned. There is mild to moderate multilevel degenerative facet change, most notable L4-S1. The sacrum is intact. SI joints appear normal. No soft tissue abnormality. There are cholecystectomy clips noted. IMPRESSION: 1. No acute bony abnormalities of the lumbar spine. Mild degenerative spondylosis. 02/26/2025 XR/XR Knee [place] 3V IMPRESSION: LEFT KNEE: 1. No acute bony abnormalities. 2. Tricompartmental osteoarthrosis, moderate in the medial compartment. 3. Small joint effusion. RIGHT KNEE: 1. No acute bony abnormalities. 2. Tricompartmental osteoarthrosis, moderate in the medial compartment. 3. Moderate to large joint effusion. 09/02/2024 CT abdomen and pelvis FINDINGS: LUNG BASES: The visualized lung bases are unremarkable. LIVER, GALLBLADDER, AND BILIARY TREE: The liver is normal in size, shape, and attenuation. No focal hepatic lesion or biliary ductal dilatation is present. There has been a prior cholecystectomy. PANCREAS: Unremarkable. SPLEEN: Unremarkable. ADRENAL GLANDS: Unremarkable. KIDNEYS AND URETERS: The kidneys are normal in size, shape, and attenuation. There are adjacent nonobstructing 1 to 2 mm calculi lower pole left kidney. There is no hydronephrosis. BLADDER: Unremarkable. GASTROINTESTINAL TRACT: There are scattered diverticula of the ascending and descending colon without diverticulitis. The appendix is not seen. ABDOMINAL WALL: No significant hernia is appreciated. LYMPH NODES: Normal. VASCULAR: There is mild atherosclerotic plaque of the abdominal aorta. PELVIC VISCERA: Unremarkable. OSSEOUS STRUCTURES: There is diffuse mild thoracolumbar degenerative change. IMPRESSION: Nonobstructing left renal calculi. Scattered diverticula without diverticulitis. No acute abnormality CT scan abdomen pelvis. Fleischner guidelines were followed. Assessment & Plan Assessment & Plan (1) Left hip pain: Code(s): M25.552 - Pain in left hip Category: Medical (2) Lumbar spondylosis: Code(s): M47.816 - Spondylosis without myelopathy or radiculopathy, lumbar region Category: Medical (3) Bilateral knee pain: Code(s): M25.561 - Pain in right knee; M25.562 - Pain in left knee Category: Medical (4) Myofascial pain syndrome: Code(s): M79.18 - Myalgia, other site Category: Medical Plan The plan includes ordering x-rays of the left hip and pelvis to further evaluate the patient's pain and any underlying conditions. Additionally, a left knee injection is planned to provide relief similar to the previous right knee injection. Follow-up will involve reviewing the x-ray results and determining further management steps for the back pain. Patient was informed and verbally consented to the use of an ambient scribe for clinic note documentation during this visit. Orders: Orders XR hip LT w PEL1V Today M25.552 - Pain in left hip Patient Instructions: - Schedule and complete x-rays of the left hip and pelvis as soon as possible. - Follow up for a left knee injection appointment. - Return for a follow-up visit to discuss x-ray results and further management. Coding Level of Care Code Est Pt Level 3 (22332) Complex EM visit Add On G2211 Diagnoses Left hip pain M25.552 Lumbar spondylosis M47.816 Bilateral knee pain M25.561; M25.562 Myofascial pain syndrome M79.18
--- OUTSIDE RECORDS SUMMARY | 2025-05-12 10:30 | XMS_ITS | Clinical Summary ---
Author Organization [employer] [facility] Address [address] [place] [address] Care Team Providers Care Solar Field Installation Crew Member Name Role Phone Unavailable Primary Care Provider [...] patient's age to complete this topic Insurance [facility] C3
== END 2025-05-12 10:39 | disposition home or self-care (01) ==
LOC: HO.PMC 09:56
PROVIDERS: Visit Provider Registered Nurse Emergency
DX: M25.552 Pain in left hip (principal); M47.816 Spondylosis without myelopathy or radiculopathy, lumbar region; M25.561 Pain in right knee; M25.562 Pain in left knee; M79.18 Myalgia, other site
CPT/HCPCS: 99213; G2211

== ENCOUNTER → 2025-05-12 09:55 | Outpatient (BNVA) | payer OTHER, SELFPAY | PROVIDERS: Visit Provider Registered Nurse Emergency | DX: M25.552 Pain in left hip (principal); M47.816 Spondylosis without myelopathy or radiculopathy, lumbar region; M25.561 Pain in right knee; M25.562 Pain in left knee; M79.18 Myalgia, other site | CPT/HCPCS: 99212 ==

== ENCOUNTER 2025-05-13 19:01 | Emergency (ER) | payer OTHER, SELFPAY ==
[2025-05-13 19:12] VITALS: BP 131/77; PULSE 76; RESP 20; TEMP 36.6; O2SAT 96; BMI 58.5
--- NOTE | 2025-05-13 19:15 | ED.GENADULT ---
HPI - General Adult General Chief complaint: General Medical Stated complaint: right shoulder and arm pain Time Seen by Provider: 05/13/25 22:18 Source: patient Mode of arrival: ambulatory Limitations: no limitations History of Present Illness ED Provider: HPI narrative: Patient is morbidly obese complaining of pain in right upper shoulder since she woke up in the morning also has small early abscess in the right thigh no recent fall or injury denies any significant shoulder pole in the past Related Data Home Medications ?Medication ?Instructions ?Recorded ?Confirmed ibuprofen 800 mg tablet 800 mg PO TID 03/31/21 05/11/25 omeprazole 20 mg capsule,delayed 20 mg PO DAILY 06/17/24 05/11/25 release lidocaine 5 % topical patch 1 patch topical DAILY 06/24/24 05/11/25 mecobalamin (vitamin B12) 10,000 1,000 mcg subcut .once a week 06/24/24 05/11/25 mcg solution for injection cyanocobalamin (vitamin B-12) mcg IM 02/26/25 05/11/25 1,000 mcg/mL injection solution Previous Rx's ?Medication ?Instructions ?Recorded dicyclomine 20 mg tablet 20 mg PO TID #20 tabs 06/11/24 albuterol sulfate 90 mcg/actuation 2 puff inhalation Q6H PRN 07/20/24 aerosol inhaler (Proventil HFA) shortness of breath or wheezing #6.7 grams cholecalciferol (vitamin D3) 25 50 mcg (2 x 25 mcg (1,000 unit)) 07/20/24 mcg (1,000 unit) capsule (Vitamin PO DAILY #30 caps D3) fexofenadine 180 mg tablet 180 mg PO DAILY #30 tabs 07/20/24 vitamin A palmitate 3,000 mcg 20,000 unit PO DAILY 30 days #60 07/20/24 (10,000 unit) tablet tabs thiamine HCl (vitamin B1) 100 mg 100 mg PO DAILY 90 days #90 tabs 07/31/24 tablet docusate sodium 100 mg capsule 100 mg PO BID 90 days #180 caps 08/13/24 (Colace) sucralfate 1 gram tablet (Carafate) 1 g PO BID PRN acid reflux #14 tabs 09/03/24 Shower Chair #1 ea 09/09/24 furosemide 40 mg tablet 60 mg (1.5 x 40 mg) PO DAILY #135 11/24/24 tabs Kneeling Scooter #1 ea 12/04/24 sennosides 8.6 mg capsule (senna) 8.6 mg PO BEDTIME PRN constipation 12/16/24 #30 caps ondansetron 4 mg disintegrating 4 mg PO Q6-8H PRN nausea and 01/03/25 tablet vomiting #10 tabs benzonatate 100 mg capsule 100 mg PO TID PRN cough #14 caps 03/10/25 lidocaine 5 % topical patch 1 patch topical DAILY PRN pain #30 03/12/25 (Lidoderm) ea naproxen 500 mg tablet 500 mg PO BID PRN pain 10 days #20 03/12/25 tabs hypoallergenic sanitary wipes #1 ea 03/18/25 levothyroxine 25 mcg tablet 25 mcg PO DAILY #30 tabs 04/02/25 Bed pads #100 ea 04/09/25 Depends sanitary pads #200 ea 04/09/25 wipes #2 ea 04/09/25 polymyxin B sulfate 10,000 1 drp ophthalmic (eye) Q3H 7 days 04/18/25 unit-trimethoprim 1 mg/mL eye drops #10 mL methocarbamol 500 mg tablet 500 mg PO TID PRN muscle spasm #90 04/27/25 tabs cyclobenzaprine 10 mg tablet 10 mg PO Q8H #20 tabs 05/13/25 doxycycline hyclate 100 mg tablet 100 mg PO BID #20 tabs 05/13/25 ibuprofen 600 mg tablet 600 mg PO Q6H PRN fever or pain 05/13/25 #30 tabs Allergies Allergy/AdvReac Type Severity Reaction Status Date / Time morphine Allergy Severe Shortness Verified 05/13/25 19:13 of Breath Seasonal Allergies Allergy Severe Sneezing Verified 05/13/25 19:13 latex (Latex) Allergy Intermediate ITCHY, Verified 05/13/25 19:13 RASH , AND FUNGUS oxycodone Allergy Intermediate Rash Verified 05/13/25 19:13 opium (anthroposophic) Allergy Unknown Hives Verified 05/13/25 19:13 Review of Systems Review of Systems: Yes all other systems are reviewed and are negative PMFSH Past Medical History Medical History Subclinical hypothyroidism Thyromegaly Lipoma of chest wall Chronic diastolic (congestive) heart failure Anal fistula Sinus complaint Sterilization Kidney stone Acute appendicitis Vesicular dermatitis Enlarged lymph node Acute bacterial tonsillitis History of claustrophobia History of anxiety Hx of tendinitis Hx of bursitis History of knee problem Hx of chronic arthritis Family history of heart murmur History of asthma Surgical History History of hand surgery Hx of carpal tunnel repair H/O bilateral mastectomy History of kidney surgery Hx of tubal ligation Hx of tonsillectomy Hx of breast surgery Hx of appendectomy Hx of cholecystectomy Hx of knee surgery History of Achilles tendon repair Family History Family History Mother Accelerated hypertension Arthritis Cancer of stomach Father Arthritis Sister No problems noted. Sister Arthritis Accelerated hypertension Sister No problems noted. Sister No problems noted. Brother Overdose Brother HIV disease Son Asthma Son No problems noted. Son No problems noted. Son No problems noted. Daughter No problems noted. Social History Social History Housing: Apartment Alcohol intake: never Patient Tobacco Use Status: Former Tobacco user Tobacco use type: Cigarette Cigarettes Per Day: 1 Years Smoked: 30 Smoked in Last 30 Days: No e-Cigarette/Vaping Use: Never Used Second Hand Smoke Exposure: Yes Use of substances other than those prescribed or required for medical reasons: No Advance Directives: No Advance Directives Information Provided: No Do you have a plan to hurt others: No Plan Patient : No service: No Current occupational status: unemployed Cognitive needs: Yes Hearing needs: No Vision needs: Yes Physical Exam ED Exam Exam: Appearance: Alert. Oriented X3. No acute distress. Obese Eyes: PERRLA, No Nystagmus ENT: Pharynx normal. Oral Mucosa moist tenderness right trapezius muscles Neck: Normal inspection. Neck supple. CVS: Normal heart rate and rhythm. Pulses normal. Respiratory: No respiratory distress. Equal air entry bilateral, no wheezing/rales/rhonchi Abdomen: Soft and nontender. Bowel sounds are present, no mass palpable, no CVA tenderness Skin: Skin warm and dry. Normal skin color. Normal skin turgor. 2 x 2 cm small early abscess right thigh Extremities: No lower extremity edema. No calf tenderness Neuro: Oriented X 3. No motor deficit. No sensory deficit.No cerebellar signs , cranial nerves II-XII intact Vital Signs: Vital Signs - 24 hr 05/13/25 19:12 05/13/25 22:00 05/13/25 23:54 Temperature 98 F 98.5 F 98.1 F Pulse Rate 76 68 69 Respiratory Rate 20 16 16 Blood Pressure 131/77 142/75 H 164/73 H Pulse Oximetry 96 96 98 Oxygen Delivery Method Room Air Room Air Room Air BMI result Body Mass Index 58.5 Course Course Course Narrative: This is a rapid medical exam performed by Lynn Leonard NP: Additional HPI, ROS, PE not included below will be deferred to primary provider. Patient is a 55-year-old Pashto speaking female presenting with multiple complaints. Right shoulder pain radiating up to neck and down right arm since last night. Also reporting abscess to her thigh as well as left ear pain and itching. [place] chills. Plan: Labs, EKG Medications Administered Discontinued Medications Generic Name Dose Route Start Last Admin Trade Name Freq PRN Reason Stop Dose Admin Cyclobenzaprine HCl 10 mg 05/13/25 23:18 05/13/25 23:48 Cyclobenzaprine Hcl 10 Mg Tablet PO 05/13/25 23:19 10 mg ONCE ONE Administration Doxycycline Monohydrate 100 mg 05/13/25 23:21 05/13/25 23:48 Doxycycline Monohydrate 100 Mg Capsule PO 05/13/25 23:22 100 mg ONCE ONE Administration Ketorolac Tromethamine 60 mg 05/13/25 23:19 05/13/25 23:47 Ketorolac Tromethamine 60 Mg/2 Ml Vial IM 05/13/25 23:20 60 mg ONCE ONE Administration Medical Decision Making Medical Decision Making [facility] Narrative: Patient clinically with right muscular upper back pain shoulder movements are normal patient is prescribed muscle relaxant and ibuprofen for small early abscess patient was given doxycycline no need for I and D at this time Lab Data 05/13/25 19:28 05/13/25 19:28 Labs: Lab Results 05/13/25 Range/Units 19:28 WBC 8.5 (4.8-10.8) X10*3/uL RBC 4.49 (4.20-5.50) X10*6/uL Hgb 13.0 (12.0-16.0) g/dl Hct 39.7 (37.0-47.0) % MCV 88.4 (80.0-98.0) fL MCH 29.0 (27.0-33.0) pg MCHC 32.7 (31.0-35.0) g/dl RDW 13.0 (11.0-16.0) % Plt Count 258 (160-400) X10*3/uL MPV 9.5 (9.4-12.3) fL Immature Gran % (Auto) 0.4 (0.0-0.4) % Neut % (Auto) 66.5 (45-73) % Lymph % (Auto) 23.6 (20-40) % Stanton % (Auto) 8.2 (2-11) % Eos % (Auto) 0.8 (0-4) % Baso % (Auto) 0.5 (0-2) % Lymph # (Auto) 2.0 (1.2-4.9) X10*3/uL Stanton # (Auto) 0.7 (0.1-1.2) X10*3/uL Eos # (Auto) 0.1 (0.0-0.4) X10*3/uL Baso # (Auto) 0.0 (0.0-0.2) X10*3/uL Abs Immat Gran (auto) 0.03 (0.00-0.03) X10*3/uL Absolute Neuts (auto) 5.7 (2.0-8.3) x10*3/uL Absolute Nucleated RBC 0.000 (0.0-0.012) X10*3/uL Nucleated RBC % (auto) 0.0 (0.0-0.2) /100WBC Sodium 139 (135-145) mmol/L Potassium 4.3 (3.3-5.1) mmol/L Chloride 103 (96-108) mmol/L Carbon Dioxide 28 (22-29) mmol/L Anion Gap 12 (12-20) BUN 16 (9-16) mg/dL Creatinine 0.78 (0.5-1.4) mg/dL Estim Creat Clear Calc 146.9 Estimated GFR > 60 Random Glucose 103 (60-115) mg/dL Calcium 9.1 (8.4-10.2) mg/dL Total Bilirubin 0.2 (0.0-1.0) mg/dL AST 18 (5-31) U/L ALT 21 (0-31) U/L Alkaline Phosphatase 141 H (39-117) U/L Total Protein 7.6 (6.5-8.0) g/dL Albumin 4.6 (3.5-5.0) g/dL Discharge Plan Discharge Clinical Impression: Myofascial pain syndrome, Abscess Patient Disposition: Home, Self-Care Instructions: Abscess (ED), Musculoskeletal Pain (ED) Additional Instructions: Take pain medication and muscle relaxant as prescribed for shoulder muscle strain Antibiotic as prescribed for early abscess in the right thigh Apply ice pack Prescriptions: New cyclobenzaprine 10 mg tablet 10 mg PO Q8H Qty: 20 0RF ibuprofen 600 mg tablet 600 mg PO Q6H PRN (Reason: fever or pain) Qty: 30 0RF doxycycline hyclate 100 mg tablet 100 mg PO BID Qty: 20 0RF No Action thiamine HCl (vitamin B1) 100 mg tablet 100 mg PO DAILY 90 Days Qty: 90 1RF docusate sodium [Colace] 100 mg capsule 100 mg PO BID 90 Days Qty: 180 0RF (DME) Shower Chair Misc See Rx Instructions .Route Qty: 1 0RF Rx Instructions: As directed senna 8.6 mg capsule 8.6 mg PO BEDTIME PRN (Reason: constipation) Qty: 30 0RF benzonatate 100 mg capsule 100 mg PO TID PRN (Reason: cough) Qty: 14 0RF (DME) hypoallergenic sanitary wipes See Rx Instructions .Route .MEDSUPPLY Qty: 1 1RF Rx Instructions: As directed levothyroxine 25 mcg tablet 25 mcg PO DAILY Qty: 30 0RF (DME) Depends sanitary pads See Rx Instructions .Route .MEDSUPPLY Qty: 200 11RF Rx Instructions: As directed (DME) wipes See Rx Instructions .Route .MEDSUPPLY Qty: 2 11RF Rx Instructions: As directed (DME) Bed pads See Rx Instructions .Route .MEDSUPPLY Qty: 100 11RF Rx Instructions: As directed methocarbamol 500 mg tablet 500 mg PO TID PRN (Reason: muscle spasm) Qty: 90 1RF Rx Instructions: No driving while taking this medication. Do no take with alcohol or other PROCESSING OPERATOR Depressants dicyclomine 20 mg tablet 20 mg PO TID Qty: 20 0RF ondansetron 4 mg tablet,disintegrating 4 mg PO Q6-8H PRN (Reason: nausea and vomiting) Qty: 10 0RF lidocaine [Lidoderm] 5 % adhesive patch,medicated 1 patch topical DAILY MDD remove after 12 hours PRN (Reason: pain) Qty: 30 0RF Rx Instructions: leave on most painful area for up to 12 hrs naproxen 500 mg tablet 500 mg PO BID PRN (Reason: pain) 10 Days Qty: 20 0RF polymyxin B sulf-trimethoprim 10,000 unit- 1 mg/mL drops 1 drp ophthalmic (eye) Q3H 7 Days Qty: 10 0RF Rx Instructions: while awake; do not exceed 6 doses in 24 hours sucralfate [Carafate] 1 gram tablet 1 g PO BID PRN (Reason: acid reflux) Qty: 14 0RF omeprazole 20 mg capsule,delayed release(DR/EC) 20 mg PO DAILY ibuprofen 800 mg tablet 800 mg PO TID cyanocobalamin (vitamin B-12) 1,000 mcg/mL solution IM lidocaine 5 % adhesive patch,medicated 1 patch topical DAILY Rx Instructions: leave on most painful area for up to 12 hrs mecobalamin (vitamin B12) 10,000 mcg recon soln 1,000 mcg subcut .once a week albuterol sulfate [Proventil HFA] 90 mcg/actuation HFA aerosol inhaler 2 puff inhalation Q6H PRN (Reason: shortness of breath or wheezing) Qty: 6.7 0RF cholecalciferol (vitamin D3) [Vitamin D3] 25 mcg (1,000 unit) capsule 50 mcg PO DAILY Qty: 30 3RF fexofenadine 180 mg tablet 180 mg PO DAILY Qty: 30 3RF vitamin A palmitate 3,000 mcg (10,000 unit) tablet 20,000 unit PO DAILY 30 Days Qty: 60 0RF furosemide 40 mg tablet 60 mg PO DAILY Qty: 135 1RF (DME) Kneeling Scooter See Rx Instructions .ROUTE .MEDSUPPLY Qty: 1 0RF Rx Instructions: As directed Interventions: ED Discharge Assessment Last Done: 05/13/25 23:54 Discharge Date/Time: 05/13/25 23:55 Print Language: Pashto
--- NOTE | 2025-05-13 19:16 | ECG_ITS ---
Test Reason : NECK SHOLDER PAIN Blood Pressure : */* mmHG Vent. Rate : 74 BPM Atrial Rate : 74 BPM P-R Int : 136 ms QRS Dur : 102 ms QT Int : 376 ms P-R-T Axes : 48 49 34 degrees QTcB Int : 417 ms Normal sinus rhythm Possible Left atrial enlargement Borderline ECG When compared with ECG of 02-Jan-2025 21:12, No significant change was found Referred By: Jessica Leonard Electronically Signed By: BRIAN DE JESUS
[2025-05-13 19:36] LABS: MANUAL DIFF FLAG NO
[2025-05-13 19:38] LABS: Hematocrit 39.7 % (37.0-47.0); Hemoglobin 13.0 g/dl (12.0-16.0); Imm Gran Abs Auto 0.03 X10*3/uL (0.00-0.03); Imm Gran Pct Auto 0.4 % (0.0-0.4); Lymphocytes Absolute Auto 2.0 X10*3/uL (1.2-4.9); Mean Corpuscular HGB Conc 32.7 g/dl (31.0-35.0); Mean Corpuscular Hemoglobin 29.0 pg (27.0-33.0); Mean Corpuscular Volume 88.4 fL (80.0-98.0); NRBC Abs Auto 0.000 X10*3/uL (0.0-0.012); NRBC Pct Auto 0.0 /100WBC (0.0-0.2); Platelet Count 258 X10*3/uL (160-400); Red Blood Count 4.49 X10*6/uL (4.20-5.50); White Blood Count 8.5 X10*3/uL (4.8-10.8)
[2025-05-13 19:52] LABS: Alanine Aminotransferase 21 U/L (0-31); Albumin Level 4.6 g/dL (3.5-5.0); Alkaline Phosphatase 141 U/L (39-117); Anion Gap 12 (12-20); Aspartate Amino Transferase 18 U/L (5-31); Blood Urea Nitrogen 16 mg/dL (9-16); Calcium 9.1 mg/dL (8.4-10.2); Carbon Dioxide 28 mmol/L (22-29); Chloride 103 mmol/L (96-108); Creatinine Clr Calc Pharmacy 146.9; Estimated Glomerular Filt Rate > 60; Potassium 4.3 mmol/L (3.3-5.1); Sodium 139 mmol/L (135-145); Total Protein 7.6 g/dL (6.5-8.0)
--- OUTSIDE RECORDS SUMMARY | 2025-05-13 20:06 | XMS_ITS | Clinical Summary ---
Author Organization [employer] [facility] Address [address] [place] [address] Care Team Providers Care Trimming Press Operator Name Role Phone Unavailable Primary Care Provider [...] patient's age to complete this topic Insurance [facility] C3
[2025-05-13 22:00] VITALS: BP 142/75; PULSE 68; RESP 16; TEMP 36.9; O2SAT 96
[2025-05-13 23:54] VITALS: BP 164/73; PULSE 69; RESP 16; TEMP 36.7; O2SAT 98
== END 2025-05-13 23:55 | disposition home or self-care (01) ==
PROVIDERS: Registered Nurse Emergency; Emergency Provider Internal Medicine
DX: M25.511 Pain in right shoulder (principal); M79.10 Myalgia, unspecified site; M54.50 Low back pain, unspecified; Z79.899 Other long term (current) drug therapy; Z87.891 Personal history of nicotine dependence
CPT/HCPCS: 36415; 80053; 85025; 93005; 96372; 99284; 99285; J1885

== ENCOUNTER → 2025-05-13 19:16 | Outpatient (BNV) | payer OTHER, SELFPAY | PROVIDERS: Emergency Provider Internal Medicine; Visit Provider Internal Medicine | DX: M25.511 Pain in right shoulder (principal); M54.2 Cervicalgia | CPT/HCPCS: 93010 ==

== ENCOUNTER 2025-06-07 14:55 | Outpatient (REF) | payer OTHER, SELFPAY ==
--- NOTE | ~2025-06-07 | XR_ITS ---
CLINICAL HISTORY: M25.552 - Pain in left hip 3 view, pelvis and left hip Comparison: None provided Findings: No acute fracture or dislocation. No significant arthritic change. The soft tissues are unremarkable. IMPRESSION: No acute findings. This document has been electronically signed by: Nickolas Kaur MD on 06/09/2025 12:55:53
--- NOTE | ~2025-06-07 | US_ITS ---
EXAMINATION: US THYROID CLINICAL INFORMATION: Iodine deficiency. COMPARISON: None available. TECHNIQUE: Linear transducer grayscale and color Doppler examination with attention to the region of the thyroid. FINDINGS: SIZE: Measurements of the thyroid lobes and nodules are given in sagittal, anteroposterior and transverse dimensions respectively. Right Thyroid Lobe: 6.3 x 2.4 x 2.2 cm, volume 17.2 mL. Parenchyma: The gland echotexture is heterogeneous. Thyroid vascularity is normal. Left Thyroid Lobe: 9.4 x 1.6 x 1.9 cm, volume 70.8 mL. Parenchyma: The gland echotexture is heterogeneous. Thyroid vascularity is normal. Isthmus: 0.5 cm in maximum AP dimension. Estimated total number of nodules greater than or equal to 1 cm: 0. Manager Oracle nodules are described as follows: US/US thyroid IMPRESSION: ACR TI-RADS category: 0 ACR TI-RADS RECOMMENDATION REFERENCE: Ultrasound-guided fine-needle aspiration, followup ultrasound, no further follow up. * TR1 (0 point) and TR2 (2 points): No FNA or follow up. * TR3 (3 points): FNA if more than or equal to 2.5 cm in maximum dimension, followup ultrasound in 1, 3 and 5 years if 1.5 to 2.4 cm in maximum dimension. * TR4 (4-6 points): FNA if more than or equal to 1.5 cm in maximum dimension, followup ultrasound in 1, 2, 3 and 5 years if 1 to 1.4 cm in maximum dimension. * TR5 (more than or equal to 7 points): FNA if more than or equal to 1 cm in maximum dimension, followup ultrasound every year for 5 years if 0.5 to 0.9 cm in maximum dimension. * TR3, TR4 or TR5 nodules that are below the size threshold for followup receive no follow up. Electronically signed by: Nelson Sullivan MD 06/07/2025 03:25 PM EDT
--- OUTSIDE RECORDS SUMMARY | 2025-06-07 15:18 | XMS_ITS | Encounter Summary ---
Author Organization [facility] Address [address] [place] [address] Phone Care Team Providers Care Machine Records Units Supervisor Name Role Phone Pardeep Du MD Primary Care Provider Pardeep Du MD Unavailable [phone] Jessie Smith RN Unavailable [phone] Delilah Cervantes DO Primary Care Provider [phone] Kirstin Reyes Primary Care Provide r Encounter Details Date Type Department Care Team (Late st Contact Info) Description 10/18/2020 Procedure Pass [facility] - [address] [place] [address] Social History Tobacco Use Types Packs/Day Years Used Date Smoking Tobacco: Former Cigarettes 1 30 1 - 07/2019 Smokeless Tobacco: Never Alcohol Use Standard Drinks/Week Comments Never 0 (1 standard drink = 0.6 oz pur e alcohol) Child or Family Care Answer Date Record ed 11 Do you have trouble with childcare or the care of a family member? No 10/18/2020 Education Answer Date Recorded 10 Are you interested in mor e education for yourself related to: Learning the Thai language? Completing high school, earning a high school equivalency, or applying to college? Developing job, technical, or parenting skills? Yes 10/18/2020 Food Answer Date Recorded 02 Within the past 12 months we worried whether our food would run out before we got money to buy more. Sometimes True 020 03 Within the past 12 months the food we bought just didn't last and we didn't have money to buy more. Sometimes True 09/28 Paying for Meds Answer Date Recorded 08 Do you have trouble paying for medicines? No 10/18/2020 Paying Utility Bills Answer Date Record ed 07 Do you have trouble paying your heating or el ectricity bill? Yes 10/18/2020 Transportation Answer Date Recorded 01 Has the lack of transport ation kept you from medical appointments or from getting medications? No 10/18/2020 Comments No Sex and Gender Information Value Date Recorded Sex Assigned at Female 06/06/2019 11:51 AM EDT Legal Sex Female 1:12 PM EDT Gender Identity Female 06/06/2019 11:51 AM EDT Sexual Orientation Straight 12/12/2021 11 :34 AM EST documented as of this encounter Plan of Treatment Not on file documented as of this encounter Visit Diagnoses Not on filedocumented in this encounter Additional Health Concerns Infection Onset Date Last Indicated Resolved Time CoV-Risk Comment:Per Ambulatory Triage Form 12/12/2021 12/12/202112/13 2:53 PM EST COVID-19 12/12/2021 12/12/2021 01/02/2022 1:23 AM EST CoV-Risk 06/28/2023 06/28/2023 07/09/2023 1:22 AM EDT Assessment Noted Time PHQ-2 Depression Total Score: 0 06/30/20 19 9:06 AM EDT documented as of this encounter Care Teams Machine Records Units Supervisor Relationship Specialty Start Date End Date Pardeep Du MD [address] [place] [address], [address]nd [place] [address] francisco PCP - General Internal Medicine 04/01/19 05/18/24 Delilah Cervantes DO [address] [place] [address] PCP - General Family Medicine 05/19/24 05/02/25 Kirstin Reyes PA [address] [place] [address] [place] [address] PCP - General Physician Litigation Secretary 05/03/25 Pardeep Du MD [address] [place] [address], 2[address] [place] [address] francisco [email or web address] Insurance Assigned Provider 08/08/19 07/06/23 Jessie Smith, RN [address] [place] [address] [email or web address] iCMP Broomcorn Sorter 12/12/22 01/24/23 documented as of this encounter Additional Source Comments The information contained in this document represents components of the legal health record. It is not the complete legal health record.[facility]
--- OUTSIDE RECORDS SUMMARY | 2025-06-07 15:18 | XMS_ITS | Clinical Summary ---
Author Organization [employer] Address [address] [facility] 7[address] [place] [address] Care Team Providers Care Bell Spinner Name Role Phone Unavailable Primary Care Provider [...] Alcohol/Substance Use Screening 1984 Tobacco Screening 1984 Hepatitis C Screening 1990 Hepatitis B Vaccines (1 of 3 - 19+ 3-dose series) 1991 Pap Smear 1993 Cervical Cancer Screening 2002 HPV/Cotest 2002 DTaP/Tdap/Td Vaccines (1 - Tdap) 07/18/2011 07/17/2011 Pneumococcal Vaccine: 50+ Years (2 of 2 - PCV) 2022 03/11/2013 Zoster Vaccines (1 of 2) 2022 COVID-19 Vaccine (3 - season) 2024 02/17/2021, 01/26/2021 Influenza Vaccine (#1) [...] patient's age to complete this topic Insurance [facility] C3
== END 2025-06-07 14:56 | disposition home or self-care (01) ==
LOC: HO.US 14:55
PROVIDERS: Absent Provider Registered Nurse Emergency; Visit Provider Student in an Organized Health Care Education/Training Program
DX: E01.0 Iodine-deficiency related diffuse (endemic) goiter (principal); M25.552 Pain in left hip
CPT/HCPCS: 73502; 76536

== ENCOUNTER → 2025-06-07 14:57 | Outpatient (BNV) | payer OTHER, SELFPAY | PROVIDERS: Absent Provider Registered Nurse Emergency; Visit Provider Radiology Diagnostic Radiology | DX: E01.0 Iodine-deficiency related diffuse (endemic) goiter (principal) | CPT/HCPCS: 76536 ==

== ENCOUNTER 2025-06-15 09:12 | Outpatient (AMB) | payer OTHER, SELFPAY ==
[2025-06-15 09:19] VITALS: BP 124/74; PULSE 75; O2SAT 96; BMI 61.7
--- NOTE | 2025-06-15 09:19 | MHC.OFFVIS ---
Vital Signs 06/15/25 09:19 Height 5 ft 8 in Weight 405 lb 10.409 oz BMI 61.7 BP 124/74 Blood Pressure Location Lt brachial Position Sitting Pulse 75 Pulse Source Pulse Oximeter Pulse Oximetry (%) 96 Oxygen Delivery Method Room Air Intake Visit Reasons: Hypothyroidism, unspecified Intake Note: Patient present today for Hypothyroidism, unspecified office visit. Copying Machine Repairer Required: Yes Copying Machine Repairer Language: Straight Cutter Machine Services: Copying Machine Repairer Offered & Declined Copying Machine Repairer Name: Jaxson Black [id number] Information Interpreted: non-clinical & clinical Accompanied by: Self / Same As Patient Allergies morphine Allergy (Severe, Verified 06/15/25 09:25) Shortness of Breath Seasonal Allergies Allergy (Severe, Verified 06/15/25 09:25) Sneezing latex (Latex) Allergy (Intermediate, Verified 06/15/25 09:25) ITCHY, RASH , AND FUNGUS oxycodone Allergy (Intermediate, Verified 06/15/25 09:25) Rash opium (anthroposophic) Allergy (Unknown, Verified 06/15/25 09:25) Hives Medication List - Last Reconciled 06/15/25 by Luzma Godinez MD albuterol sulfate 90 mcg/actuation (Proventil HFA) 2 puffs inhalation Q6H PRN [Bed pads As directed] benzonatate 100 mg PO TID PRN cholecalciferol (vitamin D3) (Vitamin D3) 50 mcg (2 x 25 mcg (1,000 unit)) PO DAILY cyanocobalamin (vitamin B-12) mcg IM cyclobenzaprine 10 mg PO Q8H [Depends sanitary pads As directed] dicyclomine 20 mg PO TID docusate sodium (Colace) 100 mg PO BID 90 days doxycycline hyclate 100 mg PO BID fexofenadine 180 mg PO DAILY furosemide 60 mg (1.5 x 40 mg) PO DAILY [hypoallergenic sanitary wipes As directed] ibuprofen 600 mg PO Q6H PRN ibuprofen 800 mg PO TID [Kneeling Scooter As directed] levothyroxine 25 mcg PO DAILY lidocaine 5% (Lidoderm) 1 patch topical DAILY PRN MDD remove after 12 hours lidocaine 5% 1 patch topical DAILY mecobalamin (vitamin B12) 1,000 mcg subcut .once a week methocarbamol 500 mg PO TID PRN naproxen 500 mg PO BID PRN 10 days omeprazole 20 mg PO DAILY ondansetron 4 mg PO Q6-8H PRN polymyxin B sulf-trimethoprim 10,000 unit- 1 mg/mL 1 drp ophthalmic (eye) Q3H 7 days sennosides (senna) 8.6 mg PO BEDTIME PRN Shower Chair As directed sucralfate (Carafate) 1 g PO BID PRN thiamine HCl (vitamin B1) 100 mg PO DAILY 90 days vitamin A palmitate 20,000 units PO DAILY 30 days [wipes As directed] HPI Comments Details: 54-year-old female coming in today for fup of subclinical hypothyroidism. HPI Subclinical Hypothyroidism first diagnosed January 2025 Most recent blood work from 02/26/2025 shows TSH was elevated at 8.35, free T4 0.76. Took levothyroxine 25 mcg for a week and says was getting headaches with the medication plus body aches so she stopped it after taking it for a week in February 2025. Prior to that in November 2024 she was noted to have a low TSH of 0.28, free T4 1.27. Reports constipation since 2 weeks. reports some heat intolerance? reports tiredness. body aches. reports hair loss. some palpitations here and there. reports tremors. still getting periods monthly. LMP 04/19/25 Patient currently denies changes in appearance of eyes or vision changes, tremors, increased diaphoresis or dry skin. ? Patient reports difficulty swallowing for about a week , some intermittent hoarsenss. Patient denies any history of childhood neck radiation. Denies having ever used lithium, amiodarone or biotin supplements. Patient denies any family history of thyroid cancer . Sister has thyroid disease. Interval history 04/29/25: TSH 6.02, free 0.93, total T3 127, TSI, TPO undetectable On levothyroxine 25 mcg daily since April 2025 Gained 10 lbs since last visit Complaining of headaches, leg swelling Forgot to repeat blood work prior to appointment 06/07/25: US thyroid no nodules seen, heterogenous gland Physical exam General: sitting comfortably in no acute distress HEENT: normocephalic/atraumatic, moist oral mucosa Neck: supple, prominent thyroid gland Cardiac: normal heart sounds Pulm: normal breath sounds B/L, no added breath sounds Abd: not distended, no tenderness Extremities: no edema, no signs of myxedema, tremors noted on exam Laboratory Tests 04/03/21 07/24/24 12/04/24 10:55 08:41 11:41 TSH 4.11 H 7.63 H 0.28 L Free T4 0.80 1.27 02/26/25 10:41 TSH 8.35 H Free T4 0.76 Laboratory Tests 04/29/25 10:47 TSH 6.02 H Free T4 0.93 Total T3 127 Thyroid Stim Immunoglob <89 Thyroid Peroxidase Ab 1 TSH Receptor Ab <1.00 US THYROID 06/07/25 CLINICAL INFORMATION: Iodine deficiency. COMPARISON: None available. TECHNIQUE: Linear transducer grayscale and color Doppler examination with attention to the region of the thyroid. FINDINGS: SIZE: Measurements of the thyroid lobes and nodules are given in sagittal, anteroposterior and transverse dimensions respectively. Right Thyroid Lobe: 6.3 x 2.4 x 2.2 cm, volume 17.2 mL. Parenchyma: The gland echotexture is heterogeneous. Thyroid vascularity is normal. Left Thyroid Lobe: 9.4 x 1.6 x 1.9 cm, volume 70.8 mL. Parenchyma: The gland echotexture is heterogeneous. Thyroid vascularity is normal. Isthmus: 0.5 cm in maximum AP dimension. Estimated total number of nodules greater than or equal to 1 cm: 0. Poultry Hanger nodules are described as follows: US/US thyroid IMPRESSION: ACR TI-RADS category: 0 PFSH Medical History Subclinical hypothyroidism Thyromegaly Lipoma of chest wall Chronic diastolic (congestive) heart failure Anal fistula Sinus complaint Sterilization Kidney stone Acute appendicitis Vesicular dermatitis Enlarged lymph node Acute bacterial tonsillitis History of claustrophobia History of anxiety Hx of tendinitis Hx of bursitis History of knee problem Hx of chronic arthritis Family history of heart murmur History of asthma Surgical History History of hand surgery Hx of carpal tunnel repair H/O bilateral mastectomy History of kidney surgery Hx of tubal ligation Hx of tonsillectomy Hx of breast surgery Hx of appendectomy Hx of cholecystectomy Hx of knee surgery History of Achilles tendon repair Family History Mother Accelerated hypertension Arthritis Cancer of stomach Father Arthritis Sister No problems noted. Sister Arthritis Accelerated hypertension Sister No problems noted. Sister No problems noted. Brother Overdose Brother HIV disease Son Asthma Son No problems noted. Son No problems noted. Son No problems noted. Daughter No problems noted. Social History Housing: Apartment Alcohol intake: never Patient Tobacco Use Status: Former Tobacco user Tobacco use type: Cigarette Cigarettes Per Day: 1 Years Smoked: 30 e-Cigarette/Vaping Use: Never Used Second Hand Smoke Exposure: Yes service: No Current occupational status: unemployed Cognitive needs: Yes Hearing needs: No Vision needs: Yes Female Reproductive History Menstrual Age of Menarche: 14 Physical Exam Vital Signs: Last Vital Signs Pulse 75 06/15/25 09:19 BP 124/74 06/15/25 09:19 Pulse Ox 96 06/15/25 09:19 Oxygen Delivery Method Room Air 06/15/25 09:19 BMI result Body Mass Index 61.7 Assessment & Plan Assessment & Plan (1) Subclinical hypothyroidism: Code(s): E03.8 - Other specified hypothyroidism Category: Medical Plan: 54-year-old female coming in today for follow up of subclinical hypothyroidism. Blood work from February 2025 showed TSH was elevated at 8.35, normal free T4 of which was on the lower side of normal at 0.76. She does have a lot of symptoms of tiredness, body aches, however when she was started on levothyroxine 25 mcg daily, she reported headaches and worsening of body aches that has been better since she stopped taking the medication after taking it for about a week in February 2025. 04/29/25: TSH 6.02, free 0.93, total T3 127, TSI, TPO undetectable On levothyroxine 25 mcg daily restarted since April 2025 Forgot to repeat blood work prior to appointment 06/07/25: US thyroid no nodules seen, heterogenous gland She does have tremors on exam and a prominent thyroid gland, and interestingly back in November 2024 the TSH was low at 0.26, I am wondering if she has a underlying autoimmune disease fluctuating between hypothyroidism and hyperthyroidism. However her antibodies were undetectable. She does say that she has been adherent to her medication now. Some of her symptoms could be because of her persistent subclinical hypothyroidism rather than the medication itself which she is blaming it for. At this point I would like to see repeat blood work. Plan: -do TSH, free T4, now we will reach out with the results -continue levothyroxine 25 mcg daily -we will order another set of blood work to be done prior to follow up Plan see above Medications: Refilled levothyroxine 25 mcg PO DAILY 30 tabs 4RF Patient Instructions: Continue levothyroxine 25 mcg daily Do blood work now , we will reach out with results Follow up in July 2025 Coding Level of Care Code Est Pt Level 3 (51031) Diagnoses Subclinical hypothyroidism E03.8
--- OUTSIDE RECORDS SUMMARY | 2025-06-15 10:13 | XMS_ITS | Encounter Summary ---
Author Organization [facility] Address [address] [place] [address] Phone Care Team Providers Care Financial Counselor Name Role Phone Pardeep Du MD Primary Care Provider Pardeep Du MD Unavailable [phone] Jessie Smith RN Unavailable [phone] Delilah Cervantes DO Primary Care Provider Kirstin Reyes Primary Care Provide r Encounter Details Date Type Department Care Team (Late st Contact Info) Description 10/18/2020 Procedure Pass [facility] - [address] [place] [address] Social History Tobacco Use Types Packs/Day Years [...] education for yourself related to: Learning the Italian language? Completing high school, earning a high [...] documented as of this encounter Care Teams Financial Counselor Relationship Specialty Start Date End Date Pardeep Du MD [address] [place] [address], [address] [place] [address] francisco PCP - General Internal Medicine 04/01/19 05/18/24 Delilah Cervantes DO [address] [place] [address] PCP - General Family Medicine 05/19/24 05/02/25 Kirstin Reyes PA [address] [place] [address] [place] [address] PCP - General Physician Bicycle Inspector 05/03/25 Pardeep Du MD [address] [place] [address], [address] [place] [address] francisco [email or web address] Insurance Assigned Provider 08/08/19 07/06/23 Jessie Smith, RN [address] [place] [address] [email or web address] iCMP Employment Officer 12/12/22 01/24/23 documented as of this encounter Additional Source Comments The information contained in this document represents components of the legal health record. It is not the complete legal health record.[facility]
== END 2025-06-15 09:55 | disposition home or self-care (01) ==
LOC: HO.ENCR 09:13
PROVIDERS: Visit Provider Student in an Organized Health Care Education/Training Program
DX: E03.8 Other specified hypothyroidism (principal)
CPT/HCPCS: 99213

== ENCOUNTER → 2025-06-15 09:12 | Outpatient (BNVA) | payer OTHER, SELFPAY | PROVIDERS: Visit Provider Student in an Organized Health Care Education/Training Program | DX: E03.8 Other specified hypothyroidism (principal) | CPT/HCPCS: 99212 ==

== ENCOUNTER 2025-06-15 10:15 | Outpatient (REF) | payer OTHER, SELFPAY ==
[2025-06-15 11:32] LABS: Free T4 (Free Thyroxine) 1.03 ng/dL (0.71-1.85); Thyroid Stimulating Hormone 1.65 uIU/mL (0.32-4.0)
--- OUTSIDE RECORDS SUMMARY | 2025-06-15 11:32 | XMS_ITS | Clinical Summary ---
Author Organization [employer] Address [address] [facility] [address] [place] [address] Care Team Providers Care Certified Medical Transcriptionist Name Role Phone Unavailable Primary Care Provider [...] patient's age to complete this topic Insurance [facility] C3
== END 2025-06-15 10:16 | disposition home or self-care (01) ==
LOC: HO.10HDL 10:15
PROVIDERS: Visit Provider Student in an Organized Health Care Education/Training Program
DX: E03.9 Hypothyroidism, unspecified (principal)
CPT/HCPCS: 36415; 84439; 84443

== ENCOUNTER → 2025-06-16 22:18 | Outpatient (BNV) | payer OTHER, SELFPAY | PROVIDERS: Emergency Provider Emergency Medicine; Visit Provider Radiology Vascular & Interventional Radiology | DX: R06.02 Shortness of breath (principal) | CPT/HCPCS: 71046 ==

== ENCOUNTER 2025-06-16 22:40 | Emergency (ER) | payer OTHER, SELFPAY ==
--- NOTE | ~2025-06-16 | XR_ITS ---
CLINICAL HISTORY: sob 2 views chest Comparison: CR/SR - XR CHEST 2V - 09/22/24 10:28 EST Findings: Cardiac and mediastinal contours are normal. Mild chronic interstitial prominence with scattered peribronchial thickening. No focal consolidation. No effusion. No pneumothorax. No acute osseous finding. Impression: Mild chronic interstitial prominence with scattered peribronchial thickening. No focal consolidation. This document has been electronically signed by: Robert Abraham MD on 06/16/2025 23:36:00
[2025-06-16 22:43] VITALS: BP 154/70; PULSE 78; RESP 20; TEMP 36.6; O2SAT 98; BMI 59.8
--- NOTE | 2025-06-16 22:48 | ECG_ITS ---
Test Reason : SOB Blood Pressure : */* mmHG Vent. Rate : 76 BPM Atrial Rate : 76 BPM P-R Int : 136 ms QRS Dur : 94 ms QT Int : 378 ms P-R-T Axes : 51 52 35 degrees QTcB Int : 425 ms Normal sinus rhythm Possible Left atrial enlargement Minimal voltage criteria for LVH, may be normal variant ( Sokolow-Limon ) Borderline ECG When compared with ECG of 13-May-2025 19:23, No significant change was found Referred By: Generic ED Physician Electronically Signed By: LIBAN SCHAEFER MD
[2025-06-16 23:07] LABS: MANUAL DIFF FLAG NO
[2025-06-16 23:08] LABS: Hematocrit 38.2 % (37.0-47.0); Hemoglobin 12.5 g/dl (12.0-16.0); Imm Gran Abs Auto 0.03 X10*3/uL (0.00-0.03); Imm Gran Pct Auto 0.4 % (0.0-0.4); Lymphocytes Absolute Auto 1.8 X10*3/uL (1.2-4.9); Mean Corpuscular HGB Conc 32.7 g/dl (31.0-35.0); Mean Corpuscular Hemoglobin 29.3 pg (27.0-33.0); Mean Corpuscular Volume 89.5 fL (80.0-98.0); NRBC Abs Auto 0.000 X10*3/uL (0.0-0.012); NRBC Pct Auto 0.0 /100WBC (0.0-0.2); Platelet Count 266 X10*3/uL (160-400); Red Blood Count 4.27 X10*6/uL (4.20-5.50); White Blood Count 7.6 X10*3/uL (4.8-10.8)
--- OUTSIDE RECORDS SUMMARY | 2025-06-16 23:17 | XMS_ITS | Clinical Summary ---
Author Organization [employer] Address [address] [facility] [address]t [place] [address] Care Team Providers Care Egyptologist Name Role Phone Unavailable Primary Care Provider [...] age to complete this topic Insurance [facility] C3
[2025-06-16 23:23] VITALS: BP 118/50; PULSE 75; RESP 18; TEMP 36.8; O2SAT 98
[2025-06-16 23:24] LABS: Alanine Aminotransferase 18 U/L (0-31); Albumin Level 4.5 g/dL (3.5-5.0); Alkaline Phosphatase 139 U/L (39-117); Anion Gap 10 (12-20); Aspartate Amino Transferase 20 U/L (5-31); Blood Urea Nitrogen 15 mg/dL (9-16); Calcium 9.1 mg/dL (8.4-10.2); Carbon Dioxide 30 mmol/L (22-29); Chloride 104 mmol/L (96-108); Creatinine Clr Calc Pharmacy 168.5; Estimated Glomerular Filt Rate > 60; Potassium 4.4 mmol/L (3.3-5.1); Sodium 140 mmol/L (135-145); Total Protein 7.6 g/dL (6.5-8.0)
[2025-06-16 23:28] LABS: B Type Natriuretic Peptide 12 pg/mL (<100)
[2025-06-16 23:31] LABS: Troponin-I High Sensitivity < 2.7 ng/L (<3.5-17.0)
[2025-06-16 23:44] LABS: Resp Syncy Virus RNA Qual PCR NEGATIVE (Negative); SARS COV2 PCR INHOUSE NEGATIVE (Negative)
--- NOTE | 2025-06-17 00:11 | ED.GENADULT ---
HPI - General Adult General Chief complaint: General Medical Stated complaint: lot of fluid/pain Time Seen by Provider: 06/17/25 00:01 Source: patient Limitations: no limitations History of Present Illness ED Provider: Cony Solorzano PA-C HPI narrative: 55-year-old female with a history of morbid obesity, asthma, chronic diastolic heart failure, hypothyroidism, presents with multiple complaints. Patient states she has developed pain and swelling in bilateral lower extremities, of unclear duration. Denies chest pain, shortness of breath, unintentional weight gain. Patient also complains of dry repetitive spasm like cough, of unclear duration. Patient states the cough is worse when she lies flat. Associated wheezing at times and fatigue. Denies sick contacts with similar symptoms, or fever. Related Data Home Medications ?Medication ?Instructions ?Recorded ?Confirmed ibuprofen 800 mg tablet 800 mg PO TID 03/31/21 06/25/25 omeprazole 20 mg capsule,delayed 20 mg PO DAILY 06/17/24 06/25/25 release mecobalamin (vitamin B12) 10,000 1,000 mcg subcut .once a week 06/24/24 06/25/25 mcg solution for injection cyanocobalamin (vitamin B-12) mcg IM 02/26/25 06/25/25 1,000 mcg/mL injection solution Previous Rx's ?Medication ?Instructions ?Recorded albuterol sulfate 90 mcg/actuation 2 puff inhalation Q6H PRN 07/20/24 aerosol inhaler (Proventil HFA) shortness of breath or wheezing #6.7 grams cholecalciferol (vitamin D3) 25 50 mcg (2 x 25 mcg (1,000 unit)) 07/20/24 mcg (1,000 unit) capsule (Vitamin PO DAILY #30 caps D3) fexofenadine 180 mg tablet 180 mg PO DAILY #30 tabs 07/20/24 vitamin A palmitate 3,000 mcg 20,000 unit PO DAILY 30 days #60 07/20/24 (10,000 unit) tablet tabs thiamine HCl (vitamin B1) 100 mg 100 mg PO DAILY 90 days #90 tabs 07/31/24 tablet sucralfate 1 gram tablet (Carafate) 1 g PO BID PRN acid reflux #14 tabs 09/03/24 Shower Chair #1 ea 09/09/24 furosemide 40 mg tablet 60 mg (1.5 x 40 mg) PO DAILY #135 11/24/24 tabs Kneeling Scooter #1 ea 12/04/24 sennosides 8.6 mg capsule (senna) 8.6 mg PO BEDTIME PRN constipation 12/16/24 #30 caps lidocaine 5 % topical patch 1 patch topical DAILY PRN pain #30 03/12/25 (Lidoderm) ea naproxen 500 mg tablet 500 mg PO BID PRN pain 10 days #20 03/12/25 tabs hypoallergenic sanitary wipes #1 ea 03/18/25 Bed pads #100 ea 04/09/25 Depends sanitary pads #200 ea 04/09/25 wipes #2 ea 04/09/25 methocarbamol 500 mg tablet 500 mg PO TID PRN muscle spasm #90 04/27/25 tabs levothyroxine 25 mcg tablet 25 mcg PO DAILY #30 tabs 06/15/25 prednisone 20 mg tablet 40 mg (2 x 20 mg) PO DAILY #8 tabs 06/17/25 chlorthalidone 25 mg tablet 25 mg PO DAILY #90 tabs 06/25/25 cyclobenzaprine 10 mg tablet 10 mg PO TID PRN muscle spasm #20 06/29/25 tabs ibuprofen 600 mg tablet 600 mg PO Q6H PRN pain #20 tabs 06/29/25 Allergies Allergy/AdvReac Type Severity Reaction Status Date / Time morphine Allergy Severe Shortness Verified 06/29/25 19:28 of Breath Seasonal Allergies Allergy Severe Sneezing Verified 06/29/25 19:28 latex (Latex) Allergy Intermediate ITCHY, Verified 06/29/25 19:28 RASH , AND FUNGUS oxycodone Allergy Intermediate Rash Verified 06/29/25 19:28 opium (anthroposophic) Allergy Unknown Hives Verified 06/29/25 19:28 Review of Systems Review of Systems: Yes all other systems are reviewed and are negative Constitutional: Constitutional: Reports fatigue and Denies fever(s) Cardiovascular: Cardiovascular: Denies chest pain, Reports leg edema and Denies dyspnea Respiratory: Respiratory: Reports cough, Denies dyspnea and Reports wheezing Endocrine: Endocrine: Reports fatigue Allergic/Immunologic: Allergic/Immunologic: Reports wheezing PMFSH Past Medical History Attestation statement: The following information was validated with the patient. Medical History (Updated 06/30/25 @ 00:01 by Background Daemon) Peripheral edema Essential hypertension Subclinical hypothyroidism Thyromegaly Lipoma of chest wall Chronic diastolic (congestive) heart failure Anal fistula Sinus complaint Sterilization Kidney stone Acute appendicitis Vesicular dermatitis Enlarged lymph node Acute bacterial tonsillitis History of claustrophobia History of anxiety Hx of tendinitis Hx of bursitis History of knee problem Hx of chronic arthritis Family history of heart murmur History of asthma Surgical History History of hand surgery Hx of carpal tunnel repair H/O bilateral mastectomy History of kidney surgery Hx of tubal ligation Hx of tonsillectomy Hx of breast surgery Hx of appendectomy Hx of cholecystectomy Hx of knee surgery History of Achilles tendon repair Family History Family History Mother Accelerated hypertension Arthritis Cancer of stomach Father Arthritis Sister No problems noted. Sister Arthritis Accelerated hypertension Sister No problems noted. Sister No problems noted. Brother Overdose Brother HIV disease Son Asthma Son No problems noted. Son No problems noted. Son No problems noted. Daughter No problems noted. Social History Social History Housing: Apartment Alcohol intake: never Patient Tobacco Use Status: Former Tobacco user Tobacco use type: Cigarette Cigarettes Per Day: 1 Years Smoked: 30 e-Cigarette/Vaping Use: Never Used Second Hand Smoke Exposure: Yes Advance Directives: No Advance Directives Information Provided: No service: No Current occupational status: unemployed Cognitive needs: Yes Hearing needs: No Vision needs: Yes Physical Exam ED Vital Signs: Vital Signs - 24 hr 06/16/25 22:43 06/16/25 23:23 Temperature 97.8 F 98.2 F Pulse Rate 78 75 Respiratory Rate 20 18 Blood Pressure 154/70 H 118/50 L Pulse Oximetry 98 98 Oxygen Delivery Method Room Air Room Air BMI result Body Mass Index 59.8 Const Other: Alert, appears older than stated age Orientation/consciousness: patient oriented x3 Resp Other: Nonlabored respirations, no wheezing, bronchospasm type cough Cardio Other: Significant Pitting edema noted Skin Other: Warm dry no rash Neuro General: patient oriented x3, gait normal, no focal motor deficits and CN's II-XI intact bilaterally Psych Other: Cooperative Medications Administered Discontinued Medications Generic Name Dose Route Start Last Admin Trade Name Thuanq PRN Reason Stop Dose Admin Prednisone 40 mg 06/17/25 01:14 06/17/25 01:23 Prednisone 20 Mg Tablet PO 06/17/25 01:15 40 mg ONCE ONE Administration Medical Decision Making Medical Decision Making [facility] Narrative: 55-year-old female with a history of morbid obesity, asthma, chronic diastolic heart failure, hypothyroidism, presents with multiple complaints. Patient states she has developed pain and swelling in bilateral lower extremities, of unclear duration. Denies chest pain, shortness of breath, unintentional weight gain. Patient also complains of dry repetitive spasm like cough, of unclear duration. Patient states the cough is worse when she lies flat. Associated wheezing at times and fatigue. Denies sick contacts with similar symptoms, or fever. Problem: Obesity, asthma, heart failure, hypothyroidism History: Per patient I have considered the following differential diagnoses: Heart failure exacerbation, renal dysfunction, liver dysfunction, dependent edema, DVT, bronchitis, pneumonia, asthma exacerbation, viral syndrome, seasonal allergies Plan: Heart failure exacerbation was considered, she does have a history, screening labs including cardiac enzymes BNP EKG and chest x-ray were obtained. She is not an active failure. Furthermore her renal and hepatic function is normal. The appearance of her legs suggest chronicity, she also has a diagnosis of lower extremity edema. We will send with home care instructions for her dependent edema. In regard to her respiratory complaint, she has a bronchospasm type cough, we will treat her for a mild asthma exacerbation. There was no pneumonia on the chest x-ray. I have independently reviewed the following tests: Labs: No leukocytosis, not anemic, no electrolyte abnormality, troponin less than 2.7, BNP 12 LFTs normal, viral panel negative EKG: Normal sinus rhythm, rate of 76, no ischemic changes no ectopy, unchanged from prior study Chest x-ray:Findings: Cardiac and mediastinal contours are normal. Mild chronic interstitial prominence with scattered peribronchial thickening. No focal consolidation. No effusion. No pneumothorax. No acute osseous finding. Impression: Mild chronic interstitial prominence with scattered peribronchial thickening. No focal consolidation. Differential Diagnosis Differential Diagnoses: The differential diagnosis associated with the presentation includes See medical decision-making Admission/Observation Consideration of admission/observation: Escalation of care including admission/observation considered Not applicable Lab Data [facility] Lab Attestation statement: I reviewed the patient's lab results. 06/16/25 23:01 06/16/25 23:01 Labs: Lab Results 06/16/25 Range/Units 23:01 WBC 7.6 (4.8-10.8) X10*3/uL RBC 4.27 (4.20-5.50) X10*6/uL Hgb 12.5 (12.0-16.0) g/dl Hct 38.2 (37.0-47.0) % MCV 89.5 (80.0-98.0) fL MCH 29.3 (27.0-33.0) pg MCHC 32.7 (31.0-35.0) g/dl RDW 13.2 (11.0-16.0) % Plt Count 266 (160-400) X10*3/uL MPV 9.4 (9.4-12.3) fL Immature Gran % (Auto) 0.4 (0.0-0.4) % Neut % (Auto) 65.5 (45-73) % Lymph % (Auto) 23.9 (20-40) % [place] % (Auto) 8.5 (2-11) % Eos % (Auto) 1.2 (0-4) % Baso % (Auto) 0.5 (0-2) % Lymph # (Auto) 1.8 (1.2-4.9) X10*3/uL Scre[place] # (Auto) 0.7 (0.1-1.2) X10*3/uL Eos # (Auto) 0.1 (0.0-0.4) X10*3/uL Baso # (Auto) 0.0 (0.0-0.2) X10*3/uL Abs Immat Gran (auto) 0.03 (0.00-0.03) X10*3/uL Absolute Neuts (auto) 5.0 (2.0-8.3) x10*3/uL Absolute Nucleated RBC 0.000 (0.0-0.012) X10*3/uL Nucleated RBC % (auto) 0.0 (0.0-0.2) /100WBC Sodium 140 (135-145) mmol/L Potassium 4.4 (3.3-5.1) mmol/L Chloride 104 (96-108) mmol/L Carbon Dioxide 30 H (22-29) mmol/L Anion Gap 10 L (12-20) BUN 15 (9-16) mg/dL Creatinine 0.69 (0.5-1.4) mg/dL Estim Creat Clear Calc 168.5 Estimated GFR > 60 Random Glucose 119 H (60-115) mg/dL Calcium 9.1 (8.4-10.2) mg/dL Total Bilirubin 0.3 (0.0-1.0) mg/dL AST 20 (5-31) U/L ALT 18 (0-31) U/L Alkaline Phosphatase 139 H (39-117) U/L Troponin I High Sens < 2.7 (<3.5-17.0) ng/L B-Natriuretic Peptide 12 (<100) pg/mL Total Protein 7.6 (6.5-8.0) g/dL Albumin 4.5 (3.5-5.0) g/dL Influenza Type A (PCR) NEGATIVE (Negative) Influenza Type B (PCR) NEGATIVE (Negative) RSV RNA Qual (PCR) NEGATIVE (Negative) SARS-CoV-2 RNA (RT-PCR) NEGATIVE (Negative) Radiology Impression Discussion of test interpretation with radiology: I have reviewed the radiologist's reading. Discharge Plan Discharge Clinical Impression: Asthma, Dependent edema Patient Disposition: Home, Self-Care Instructions: Asthma (ED), Leg Edema (ED) Additional Instructions: All of your screening labs including you were cardiac related labs were normal. The chest x-ray is clear, there was no fluid in your lungs. There were no concerning changes on your EKG. You are being treated for a mild asthma exacerbation. Use your home inhalers as needed, take the steroid as directed. In regard to the swelling of your legs, exercise and weight loss are instrumental, in helping to improve the circulation in your lower extremities. Continue to follow up with your primary care provider. Prescriptions: New prednisone 20 mg tablet 40 mg PO DAILY Qty: 8 0RF No Action thiamine HCl (vitamin B1) 100 mg tablet 100 mg PO DAILY 90 Days Qty: 90 1RF (DME) Shower Chair Misc See Rx Instructions .Route Qty: 1 0RF Rx Instructions: As directed senna 8.6 mg capsule 8.6 mg PO BEDTIME PRN (Reason: constipation) Qty: 30 0RF (DME) hypoallergenic sanitary wipes See Rx Instructions .Route .MEDSUPPLY Qty: 1 1RF Rx Instructions: As directed (DME) Depends sanitary pads See Rx Instructions .Route .MEDSUPPLY Qty: 200 11RF Rx Instructions: As directed (DME) wipes See Rx Instructions .Route .MEDSUPPLY Qty: 2 11RF Rx Instructions: As directed (DME) Bed pads See Rx Instructions .Route .MEDSUPPLY Qty: 100 11RF Rx Instructions: As directed methocarbamol 500 mg tablet 500 mg PO TID PRN (Reason: muscle spasm) Qty: 90 1RF Rx Instructions: No driving while taking this medication. Do no take with alcohol or other TRADE SALES ASSISTANT Depressants chlorthalidone 25 mg tablet 25 mg PO DAILY Qty: 90 0RF lidocaine [Lidoderm] 5 % adhesive patch,medicated 1 patch topical DAILY MDD remove after 12 hours PRN (Reason: pain) Qty: 30 0RF Rx Instructions: leave on most painful area for up to 12 hrs naproxen 500 mg tablet 500 mg PO BID PRN (Reason: pain) 10 Days Qty: 20 0RF sucralfate [Carafate] 1 gram tablet 1 g PO BID PRN (Reason: acid reflux) Qty: 14 0RF cyclobenzaprine 10 mg tablet 10 mg PO TID PRN (Reason: muscle spasm) Qty: 20 0RF ibuprofen 600 mg tablet 600 mg PO Q6H PRN (Reason: pain) Qty: 20 0RF omeprazole 20 mg capsule,delayed release(DR/EC) 20 mg PO DAILY ibuprofen 800 mg tablet 800 mg PO TID cyanocobalamin (vitamin B-12) 1,000 mcg/mL solution IM mecobalamin (vitamin B12) 10,000 mcg recon soln 1,000 mcg subcut .once a week albuterol sulfate [Proventil HFA] 90 mcg/actuation HFA aerosol inhaler 2 puff inhalation Q6H PRN (Reason: shortness of breath or wheezing) Qty: 6.7 0RF cholecalciferol (vitamin D3) [Vitamin D3] 25 mcg (1,000 unit) capsule 50 mcg PO DAILY Qty: 30 3RF fexofenadine 180 mg tablet 180 mg PO DAILY Qty: 30 3RF vitamin A palmitate 3,000 mcg (10,000 unit) tablet 20,000 unit PO DAILY 30 Days Qty: 60 0RF furosemide 40 mg tablet 60 mg PO DAILY Qty: 135 1RF (DME) Kneeling Scooter See Rx Instructions .ROUTE .MEDSUPPLY Qty: 1 0RF Rx Instructions: As directed levothyroxine 25 mcg tablet 25 mcg PO DAILY Qty: 30 4RF Interventions: ED Discharge Assessment Last Done: 06/17/25 01:36 Discharge Date/Time: 06/17/25 01:37 Print Language: Argentine
[2025-06-17 01:29] VITALS: BP 140/64; PULSE 75; RESP 13; TEMP 36.7; O2SAT 97
[2025-06-17 01:36] VITALS: BP 140/64; PULSE 75; RESP 13; TEMP 36.7; O2SAT 97
== END 2025-06-17 01:37 | disposition home or self-care (01) ==
PROVIDERS: Emergency Provider Emergency Medicine
DX: J45.901 Unspecified asthma with (acute) exacerbation (principal); I10 Essential (primary) hypertension; E66.01 Morbid (severe) obesity due to excess calories; Z68.43 Body mass index [BMI] 50.0-59.9, adult; I11.0 Hypertensive heart disease with heart failure; I50.32 Chronic diastolic (congestive) heart failure; Z79.899 Other long term (current) drug therapy
CPT/HCPCS: 71046; 80053; 83880; 84484; 85025; 87637; 93005; 99283; 99284

== ENCOUNTER → 2025-06-16 22:48 | Outpatient (BNV) | payer OTHER, SELFPAY | PROVIDERS: Emergency Provider Emergency Medicine; Visit Provider Internal Medicine Cardiovascular Disease | DX: R06.02 Shortness of breath (principal) | CPT/HCPCS: 93010 ==

== ENCOUNTER 2025-06-25 09:13 | Outpatient (AMB) | payer OTHER, SELFPAY ==
--- NOTE | 2025-06-25 09:18 | MHC.PC.OV ---
Vital Signs 06/25/25 09:20 Height 5 ft 9 in Weight 398 lb 2.477 oz BMI 58.8 BP 150/70 H Blood Pressure Location Lt brachial Position Sitting Pulse 76 Pulse Source Pulse Oximeter Temp 97.1 F Temp Source Temporal Artery Scan Pulse Oximetry (%) 95 Oxygen Delivery Method Room Air Int[place] [facility] [place] Liquid retention in foot, and asthma Intake Note: Patient is here to follow-up after a visit the emergency department [place] [facility] [place]. Complaint of chest pain on/off for a few days and headache. Sprinkler Inspector Required: Yes Sprinkler Inspector Language: Human Capital Analyst Name: Alex ([id number]) Information Interpreted: non-clinical & clinical Whiteprinting Machine Operator: Not Required per policy Accompanied by: Self / Same As Patient Allergies morphine Allergy (Severe, Verified 06/25/25 09:20) Shortness of Breath Seasonal Allergies Allergy (Severe, Verified 06/25/25 09:20) Sneezing latex (Latex) Allergy (Intermediate, Verified 06/25/25 09:20) ITCHY, RASH , AND FUNGUS oxycodone Allergy (Intermediate, Verified 06/25/25 09:20) Rash opium (anthroposophic) Allergy (Unknown, Verified 06/25/25 09:20) Hives Medication List - Last Reconciled 06/25/25 by Lupe Flaherty, RENE albuterol sulfate 90 mcg/actuation (Proventil HFA) 2 puffs inhalation Q6H PRN [Bed pads As directed] cholecalciferol (vitamin D3) (Vitamin D3) 50 mcg (2 x 25 mcg (1,000 unit)) PO DAILY cyanocobalamin (vitamin B-12) mcg IM [Depends sanitary pads As directed] fexofenadine 180 mg PO DAILY furosemide 60 mg (1.5 x 40 mg) PO DAILY [hypoallergenic sanitary wipes As directed] ibuprofen 800 mg PO TID [Kneeling Scooter As directed] levothyroxine 25 mcg PO DAILY lidocaine 5% (Lidoderm) 1 patch topical DAILY PRN MDD remove after 12 hours mecobalamin (vitamin B12) 1,000 mcg subcut .once a week methocarbamol 500 mg PO TID PRN naproxen 500 mg PO BID PRN 10 days omeprazole 20 mg PO DAILY prednisone 40 mg (2 x 20 mg) PO DAILY sennosides (senna) 8.6 mg PO BEDTIME PRN Shower Chair As directed sucralfate (Carafate) 1 g PO BID PRN thiamine HCl (vitamin B1) 100 mg PO DAILY 90 days vitamin A palmitate 20,000 units PO DAILY 30 days [wipes As directed] Tobacco use date assessed: 06/25/25 Dental Screening Dental Screen Date: 11/24/24 HPI HPI Comments History of Present Illness Details 55 y/o Female patient who presents to the clinic for EDF. Patient was admitted at [facility] [place] for an evaluation and treatment of Peripheral Edema and Asthma. EKG and Chest Xray unremarkable. Today patient c/o SOB, and Chest pains - her BP is elevated. Pt is mobidly Obese and has chronic CP and SOB. She was being seen by Cardiology who did a number of testings with Negative results. Pt not sure when she has a F/U appointment. She thinks next appointment with Cardiology is Next Year. Advised Pt to go to ED if CP and SOB gets worse. [facility] Medical History (Updated 06/25/25 @ 09:43 by Lupe Flaherty, RENE) Peripheral edema Essential hypertension Subclinical hypothyroidism Thyromegaly Lipoma of chest wall Chronic diastolic (congestive) heart failure Anal fistula Sinus complaint Sterilization Kidney stone Acute appendicitis Vesicular dermatitis Enlarged lymph node Acute bacterial tonsillitis History of claustrophobia History of anxiety Hx of tendinitis Hx of bursitis History of knee problem Hx of chronic arthritis Family history of heart murmur History of asthma Surgical History History of hand surgery Hx of carpal tunnel repair H/O bilateral mastectomy History of kidney surgery Hx of tubal ligation Hx of tonsillectomy Hx of breast surgery Hx of appendectomy Hx of cholecystectomy Hx of knee surgery History of Achilles tendon repair Family History Mother Accelerated hypertension Arthritis Cancer of stomach Father Arthritis Sister No problems noted. Sister Arthritis Accelerated hypertension Sister No problems noted. Sister No problems noted. Brother Overdose Brother HIV disease Son Asthma Son No problems noted. Son No problems noted. Son No problems noted. Daughter No problems noted. Social History (Reviewed 08/29/25 @ 09:18 by JANNA Quan Housing: Apartment Alcohol intake: never Patient Tobacco Use Status: Former Tobacco user Tobacco use type: Cigarette Cigarettes Per Day: 1 Years Smoked: 30 Packs per year/per ci.50 e-Cigarette/Vaping Use: Never Used Second Hand Smoke Exposure: Yes service: No Current occupational status: unemployed Cognitive needs: Yes Hearing needs: No Vision needs: Yes Female Reproductive History Menstrual Age of Menarche: 14 Questionnaire PHQ-9 Over the last 2 weeks, how often have you been bothered by any of the following problems? 1. Little interest or pleasure in doing things: not at all 2. Feeling down, depressed, or hopeless: not at all 3. Trouble falling or staying asleep, or sleeping too much: not at all 4. Feeling tired or having little energy: nearly every day 5. Poor appetite or overeating: nearly every day 6. Feeling bad about yourself - or that you are a failure or have let yourself or your family down: not at all 7. Trouble concentrating on things, such as reading the newspaper or watching television: not at all 8. Moving or speaking so slowly that other people could have noticed. Or the opposite - being so fidgety or restless that you have been moving around a lot more than usual: not at all 9. Thoughts that you would be better off or of hurting yourself in some way: not at all Total score: 6 Depression Screening Interpretation: Positive Depression Screening Done: Yes Source: Developed by Drs. Gonzalez Merida, Jenn Kramer, Matthew Jimenez and colleagues, with an educational honorio from [employer]. Thrive Questionnaire Date Thrive assessed: 06/24/25 I am a: Patient What is your living situation today?: I have a steady place to live Within the past 12 months, did the food you bought not last and you didn't have the money to get more?: Often true Within the past 12 months, did you worry whether your food would run out before you got money to buy more?: Often true Do you have trouble paying for medicines?: No Do you have trouble getting transportation to medical appointments?: No Do you have trouble paying your heating and electricity bill?: Yes Do you have trouble taking care of your child, family member or friend?: No Do you have trouble with day-to-day activities such as bathing, preparing meals, shopping, managing finances, etc.?: Yes Are you currently unemployed and looking for a job?: Yes Are you interested in more education?: No Please select the resources that you would like help with: Housing/Correction and Utilities Currently or been in a relationship where the following occur: No concerns reported THRIVE Score: 3 AUDIT C Alcohol Use Questionnaire (AUDIT-C) 1. How often do you have a drink containing alcohol?: Never 3. How often do you have six or more drinks on one occasion?: Never Total Score: 0 DANDY-7 AMB Questionnaire DANDY-7 Date DANDY - 7 assessed: 11/24/24 Feeling nervous, anxious, or on edge: 0 = Not at all Not being able to stop or control worryin = Not at all Worrying too much about different things: 0 = Not at all Trouble relaxin = Not at all Being so restless that it is hard to sit still: 0 = Not at all Becoming easily annoyed or irritable: 0 = Not at all Feeling afraid as if something awful might happen: 0 = Not at all Total DANDY-7 score (0-4 normal; 5-9 mild; 10-14 moderate; 15-21 severe): 0 Source: Developed by Drs. Gonzalez Merida, Jenn Kramer, Matthew Jimenez and colleagues, with an educational honorio from [employer]. Physical exam (Primary Care) Vital Signs: Last Vital Signs Temp 97.1 F 06/25/25 09:20 Pulse 76 06/25/25 09:20 BP 150/70 H 06/25/25 09:20 Pulse Ox 95 06/25/25 09:20 Oxygen Delivery Method Room Air 06/25/25 09:20 BMI result Body Mass Index 58.8 Tobacco/Smoking Status: Tobacco use Status Tobacco use date assessed 06/25/25 06/25/25 09:31 Patient Tobacco Use Status Former Tobacco user 06/25/25 09:31 Tobacco use type Cigarette 06/25/25 09:31 e-Cigarette/Vaping Use Never Used 06/25/25 09:31 PHQ-9: PHQ-9 Score PHQ-9: Total score 6 08/29/25 09:31 Depression Screening Interpretation: Positive Thrive Assessment: Date of Thrive Assessment Date Thrive assessed 06/24/25 06/25/25 09:31 Currently or been in a relationship where the following occur: No concerns reported Const General: no acute distress Nutritional Appearance: obese morbidly obese Orientation/consciousness: patient oriented x3 Limitations: language barrier Resp Effort & Inspection: normal respiratory effort Auscultation: clear to auscultation bilaterally Cardio Heart sounds: S1 normal heart sound present and S2 normal heart sound present Neuro General: patient oriented x3 Coding Level of Care Code Est Pt Level 4 (78523) Diagnoses Peripheral edema R60.0 Essential hypertension I10 Time Spent (min) 20 Assessment & Plan Assessment & Plan (1) Peripheral edema: Code(s): R60.0 - Localized edema Category: Medical Plan: Currently on furosemide. (2) Essential hypertension: Code(s): I10 - Essential (primary) hypertension Category: Medical Plan: Started her on Chlorthalidone low dose. Advised her to Call Cardiology for SHERI appointment. Medications: New chlorthalidone 25 mg PO DAILY 30 tabs 0RF I10 - Essential (primary) hypertension Discontinued ondansetron Discontinued Reason: Order 4 mg PO Q6-8H PRN 10 tabs 0RF nausea and vomiting polymyxin B sulf-trimethoprim 10,000 unit- 1 mg/mL while awake; do not exceed 6 doses in 24 hours Discontinued Reason: Patient Completed Course 1 drp ophthalmic (eye) Q3H 7 days 10 mL 0RF cyclobenzaprine Discontinued Reason: Patient Completed Course 10 mg PO Q8H 20 tabs 0RF doxycycline hyclate Discontinued Reason: Patient Completed Course 100 mg PO BID 20 tabs 0RF dicyclomine Discontinued Reason: Patient Completed Course 20 mg PO TID 20 tabs 0RF ibuprofen Discontinued Reason: Patient Completed Course 600 mg PO Q6H PRN 30 tabs 0RF fever or pain docusate sodium (Colace) Discontinued Reason: Patient Completed Course 100 mg PO BID 90 days 180 caps 0RF benzonatate Discontinued Reason: Patient Completed Course 100 mg PO TID PRN 14 caps 0RF cough
[2025-06-25 09:20] VITALS: BP 150/70; PULSE 76; TEMP 36.2; O2SAT 95; BMI 58.8
--- OUTSIDE RECORDS SUMMARY | 2025-06-25 10:02 | XMS_ITS | Encounter Summary ---
Author Organization [facility] Address [address] [place] [address] Phone Care Team Providers Care Warehouse Assembly Worker Name Role Phone Kirstin Reyes Primary Care Provide r Encounter Details Date Type Department Care Team (Late st Contact Info) Description 05/03/2025 Procedure Pass [facility] Endoscopy Admitting Dept Virtual Department [address] [place] [address] Social History Tobacco Use Types Packs/Day Years Used Date Smoking Tobacco: Former Cigarettes 1 31.6 1 10/30/1986 - 04/08/2019 Smokeless Tobacco: Never Alcohol Use Standard Drinks/Week Comments Not Currently 0 (1 standard drink = 0.6 oz pur e alcohol) Home Health Assessment: Transportation Answer Date Recorded Lack of Transportation (Medical) No 02/15/2023 Lack of Transportation (Non-Medical) No 02/15/2023 Patient Unable or Declines to Respond No 02/15/2023 Child or Family Care Answer Date Record ed 11 Do you have trouble with childcare or the care of a family member? No 10/18/2020 Education Answer Date Recorded Are you interested in more education? Not on charlene e 02/21/2023 Are you concerned about learning? Not on file 02/21/2023 No 02/21/2023 No 02/21/2023 Food Answer Date Recorded 02 Within the [...] appointments or from getting medications? No 10/18/2020 Digital Access Answer Date Recorded No 03/19/2023 No 03/19/2023 Reliable internet access at home? Not on file 03/19/2023 Device with a working camera? Not on file Intimate Partner Violence Answer Date R ecorded Are you denied basic needs s uch as food, clothing, or medical care? No 05/03/2025 In the past 12 months have y ou been in a relationship with a person who hurts, threatens, or tries to control you? No 05/03/2025 Are you denied basic needs s uch as food, clothing, or medical care? No 05/03/2025 In the past 12 months have y ou been in a relationship with a person who hurts, threatens, or tries to control you? No 05/03/2025 Comments No Sex and Gender Information Value Date Recorded Sex Assigned at Female 06/06/2019 11:51 AM EDT Legal Sex Female 1:12 PM EDT Gender Identity Female 06/06/2019 11:51 AM EDT Sexual Orientation Straight 12/12/2021 11 :34 AM EST Occupation Industry Job Start Date Job End Date unemployed Not on file Not on file Not on file documented as of this encounter Plan of Treatment Not on file documented as of this encounter Visit Diagnoses Not on filedocumented in this encounter Additional Health Concerns Assessment Noted Time A Body Mass Index follow-up plan has been documented for the patient 07/07/2021 11:06 PM EDT PHQ-2 Depression Total Score: 2 12/06/19 1:31 PM EST documented as of this encounter Care Teams Warehouse Assembly Worker Relationship Specialty Start Date End Date Kirstin Reyes PA [address] [place] [address] [place] [address] PCP - General Physician Corporate Real Estate Specialist 05/03/25 documented as of this encounter Additional Source Comments The information contained in this document represents components of the legal health record. It is not the complete legal health record.[facility]
--- OUTSIDE RECORDS SUMMARY | 2025-06-25 10:02 | XMS_ITS | Encounter Summary ---
Author Organization [facility] Address [address] [place] [address] Phone Care Team Providers Care Seismic Engineer Name Role Phone Pardeep Du MD Primary Care Provider [phone] Pardeep Du MD Unavailable [phone] Jessie Smith RN Unavailable Delilah Cervantes DO Primary Care Provider Kirstin Reyes Primary Care Provide r Encounter Details Date Type Department Care Team (Late st Contact Info) Description 09/13/2021 Transcribe Orders Virtual Department [address] [place] [address] Pardeep Du MD [address], [address] [place] [address] [place] Social History Tobacco Use Types Packs/Day Years [...] education for yourself related to: Learning the Pashto language? Completing high school, earning a high [...] 07/09/2023 1:22 AM EDT Assessment Noted Time A Body Mass Index follow-up plan has been documented for the patient 07/07/2021 11:06 PM EDT PHQ-2 Depression Total Score: 0 06/30/20 19 9:06 AM EDT documented as of this encounter Care Teams Seismic Engineer Relationship Specialty Start Date End Date Pardeep Du MD [address] [place] [address], [address] [place] [address] [place] PCP - General Internal Medicine 04/01/19 05/18/24 Delilah Cervantes DO [address] [place] [id number] PCP - General Family Medicine 05/19/24 05/02/25 Kirstin Reyes PA [address] [place] [id number] PCP - General Physician Melter Helper 05/03/25 Pardeep Du MD [address] [place] [address], [address] [place] [address] [place] Insurance Assigned Provider 08/08/19 07/06/23 Jessie Smith, RN [address] [place] [id number] [email or web address] License Registration Examiner 12/12/22 01/24/23 documented as of this encounter Additional Source Comments The information contained in this document represents components of the legal health record. It is not the complete legal health record.[facility]
--- OUTSIDE RECORDS SUMMARY | 2025-06-25 10:02 | XMS_ITS | Clinical Summary ---
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 polyps Special Needs Hx CHF - cardiac workup done - see notes ENDOSCOPY, COLON 05/03/2025 10:2 4 AM EDT ANATOMIC PATHOLOGY Routine 05/03/2025 12 :00 AM EDT BI MAMMOGRAM SCREENING WITH TOMOSYNTHESIS WITH CAD (BILATERAL) Routine 05/01/2023 3:59 PM EDT Breast cancer screening by mammogram LIPID PANEL Routine 12/09/2022 4:15 AM EST PAP TEST Routine 03/20/2022 12:00 AM EDT HEPATITIS C ANTIBODY, QUALITATIVE Routine 01/25/2022 8:02 AM EDT Screen for STD (sexually transmitted disease) CT CHEST PULMONARY ANGIOGRAM (ACUTE) Routine 09/26/2019 1:20 AM EST from Last 3 Months or Most Recently Relevant to Health Maintenance Results * ENDOSCOPY, COLON (05/03/2025 10:24 AM EDT) Narrative Transcriptions Lani Marion MD - 05/03/2025 10:24 AM EDT [facility] Patient Name: Heidi Gupta Attending MD:: LANI MARION MD, Procedure Date: 05/03/2025 10:24 AM Date of : 1970 Age: 54 Admit Type: Outpatient Gender: Female Room: [place] [address] Referring MD: Kirstin Reyes Exam Type: Colonoscopy Indications: High risk colon cancer surveillance: Personalhistory of colonic polyps, Last colonoscopy: March 2022,anal swelling Medications: Monitored Anesthesia Care Procedure: Informed consent was obtained from the patientafter discussion of the indications, limitations, alternatives, benefits, and risks of the procedure. Risks specifically discussed include but are not limited to medication reactions, missed lesions, bleeding, perforation, or the need for emergent surgery. Throughout the procedure, the patient's blood pressure, pulse, end-tidal CO2, and oxygensaturations were monitored continuously. The Olympus adult variable colonoscope [id number] #1 was introduced through the anus and advanced to the terminal ileum, with identification of theappendiceal orifice and IC valve. The colonoscopy was performed without difficulty. The patient tolerated the procedure well. The quality of the bowelpreparation was good. The terminal ileum, ileocecal valve, appendiceal orifice, and rectum werephotographed. Complications: No immediate complications. Estimated blood loss:None. Findings: The terminal ileum appeared normal. Examination of the right colon was repeated in retroflexion and again in NBI. Retroflexion wasalso performed in the rectum. Multiple diverticula were found in the entirecolon. Internal hemorrhoids were found duringretroflexion. The hemorrhoids were mild. A 4 mm polyp was found in the distal rectum. Thepolyp was semi-pedunculated. The polyp was removed with a cold snare. Resection and retrieval werecomplete. The exam was otherwise without abnormality. Impression: - The examined portion of the ileum was normal. - Diverticulosis in the entire examined colon. - Internal hemorrhoids. - One 4 mm polyp in the distal rectum, removed witha cold snare. Resected and retrieved. - The examination was otherwise normal. Recommendation: - Patient has a contact number available for emergencies. The signsand symptoms of potential delayed complications were discussed with the patient. Return to normal activities tomorrow. Written discharge instructions were provided to the patient. - Await pathology results. - Repeat colonoscopy for surveillance based on pathology results. - Return to GI office as previously scheduled. Lani Marion LANI MARION MD 05/03/2025 11:05:31 AM This report has been signed electronically. Number of Addenda: 0 Note Initiated On: 05/03/2025 10:24 AM Procedure Code(s): --- Professional --- 17526, Colonoscopy, flexible; with removal of tumor(s), polyp(s), or other lesion(s) by snare technique --- Technical --- 98451, Colonoscopy, flexible; with removal of tumor(s), polyp(s), or other lesion(s) by snare technique CPT copyright 2021 [employer]. All rights reserved. The codes documented in this report are preliminary and upon used car make ready mechanic reviewmay be revised to meet current compliance requirements. Procedure Date: 05/03/2025 10:24:[address] [place], [place] [id number] Kirstin GRAJEDA GI PROCEDURE ORDERABL ES Final Result * Anatomic Pathology (05/03/2025 12:00 AM EDT) 05/03/2025 05/03/2025 1:3 4 PM EDT Narrative SEE NARRATIVE - 05/04/2025 4:43 PM EDT [address] [address] Clam Picker: Jonatan Wilks MD Surgical Pathology Report FINAL PATHOLOGIC DIAGNOSIS: RECTUM, POLYP, COLD SNARE REMOVAL: Polypoid benign colonic mucosa with no pathologic abnormality. Electronically Signed Out By Emily Estevez MD By his/her signature above, the pathologist listed as making the Final Diagnosis certifies that he/she has personally reviewed this case and confirmed or corrected the diagnosis. CLINICAL HISTORY Slow transit constipation History of colonic polyps SPECIMENS SUBMITTED: A: RECTUM, BIOPSY GROSS DESCRIPTION RECTUM, BIOPSY: Formalin: Is a linear irregular fragment 1.3 cm, entirely submitted A1. LT 05/03/2025 Grossing Staff: GAUTAM Patient Name: HEIDI GUPTA : 1970 (Age: 54) Sex: F [facility] Date of Operation: 05/03/2025 Date of Reported: 05/04/2025 16:43 Results To: Lani GRAJEDA us Lani Marion MD PATHOLOGY ORDERABLES Final Re sult SEE NARRATIVE * (ABNORMAL) BI MAMMOGRAM SCREENING WITH TOMOSYNTHESIS WITH CAD (BILATERAL) (05/01/2023 3:59 PM EDT) Anatomical Region Laterality Modality Breast Left, Breast Right, Breast Bilateral Bila teral Mammography 05/03/2023 11:3 6 AM EDT Impressions 05/03/2023 11:42 AM EDT 1. Increasing calcifications in the left upper inner quadrant. Patient is being recalled for magnification views. 2. No other suspicious changes in either breast. BI-RADS CATEGORY: 0 - Incomplete. Need additional imaging evaluation. DENSITY: The breast tissue is heterogeneously dense, which could obscure a lesion on mammography. LEFT RECOMMENDATION DUE DATE: At This Time Left Additional Imaging RIGHT RECOMMENDATION DUE DATE: 12 Months Right Mammography Screening Narrative 05/03/2023 11:42 AM EDT AVAILABLE COMPARISON: 01/14/2022 through 05/10/2015. Bilateral 3-D tomosynthesis with 2-D reconstructions in the CC and MLO projection. Computer-aided detection system also utilized. In the deep medial left breast between 9 and 10:00 there are increasing punctate microcalcifications. Although these are fairly broadly distributed, there is a more localized cluster within the larger grouping. The patient will be recalled for magnification imaging to determine appropriate follow-up. No other new mass, asymmetry, architectural distortion or suspicious calcifications have become apparent in either breast. Procedure Note Andrew Whaley MD - 05/03/2023 AVAILABLE COMPARISON: 01/14/2022 through 05/10/2015. Bilateral 3-D tomosynthesis with 2-D reconstructions in the CC and MLOprojection. Computer-aided detection system also utilized. In the deep medial left breast between 9 and 10:00 there are increasingpunctate microcalcifications. Although these are fairly broadlydistributed, there is a more localized cluster within the larger grouping.The patient will be recalled for magnification imaging to determineappropriate follow-up. No other new mass, asymmetry, architectural distortion or suspiciouscalcifications have become apparent in either breast. IMPRESSION: 1. Increasing calcifications in the left upper inner quadrant. Patient isbeing recalled for magnification views. 2. No other suspicious changes in either breast. BI-RADS CATEGORY: 0 - Incomplete. Need additional imaging evaluation. DENSITY: The breast tissue is heterogeneously dense, which could obscurea lesion on mammography. LEFT RECOMMENDATION DUE DATE: At This Time Left Additional Imaging RIGHT RECOMMENDATION DUE DATE: 12 Months Right Mammography Screening us Pardeep Du MD IMG MG EXAMS Final Resul t * (ABNORMAL) Lipid panel (12/09/2022 4:15 AM EST) HDL 66 mg/dL [facility] Comment: Interpretation <40 mg/dL: Low HDL cholesterol (major risk factor for CHD) Greater than or equal to 60 mg/dL: High HDL cholesterol ( negative risk factor for CHD) HDL - cholesterol is affected by a number of factors, e.g. smoking, excerise, hormones, sex and age. CHOLESTEROL 163 0 - 240 mg/dL [facility] TRIGLYCERIDES 73 30 - 160 mg/dL [facility] LDL 82 50 - 129 mg/dL [facility] Comment: LDL levels in terms of risk for coronary heart disease: <100 mg/dL: Optimal 100-129 mg/dL: Near or above optimal 130-159 mg/dL: Borderline high 160-189 mg/dL: High >190 mg/dL: Very High CARDIAC RISK RATIO 2.5(L) 3.3 - 4.4 [facility] Blood 12/09/2022 4:15 AM EST 12/09/2022 4:23 AM EST us Olinda Higgins MD LAB BLOOD ORDERABLES Final Result [facility] [address] [place] [address] * Pap Smear (03/20/2022 12:00 AM EDT) 03/20/2022 03/21/2022 8:4 4 AM EDT Narrative SEE NARRATIVE - 03/27/2022 11:19 AM EDT [address] [address] Clam Picker: Emily Estevez MD DIRECTOR OF CATERING SALES Cytology Report FINAL DIAGNOSIS A. PAP SMEAR (SUREPATH) CE: SPECIMEN ADEQUACY: Satisfactory for evaluation; transformation zone present. INTERPRETATION: NEGATIVE FOR INTRAEPITHELIAL LESION OR MALIGNANCY. Electronically Signed Out By: SAMEERA Brennan(ASCP) The Pap test is a screening test primarily for squamous cancers and precursors and has associated false-negative and false-positive results. New technologies such as liquid-based preparations may decrease but will not eliminate all false-negative results. Regular sampling and follow-up of unexplained clinical signs and symptoms are recommended to minimize false negative results. PROCEDURES/ADDENDA HPV Testing (Requested) Ordered Date: 03/21/2022 A. PAP SMEAR (SUREPATH) CE: Human Papilloma Virus Test Negative for high-risk human papillomavirus types 16, 18, 45 and the Other high risk probe set (Includes 31, 33, 35, 39, 51, 52, 56, 58, 59, 66, 68) by [employer] Onclarity HR-HPV analysis. Clinical correlation is advised. This HPV test was performed at [facility], [address] [place] [address]. This test has been FDA approved for SurePath cervical cytology specimens. The accuracy and precision of this test for all other specimen sources has been verified in the Cytopathology Laboratory of the [facility] and has not been cleared or approved by the U.S. Food and Drug Administration. Clinical correlation is advised. CLINICAL HISTORY Date of Last Menstrual Period: 03-20-2022 Menstrual History: Bleeding, Abnormal Other Clinical Conditions: Screening Pap SPECIMEN SOURCE A: PAP SMEAR (SUREPATH) CE Patient Name: HEIDI GUPTA : 1970 (Age: 51) Sex: F Institution: [facility] Location: [facility] Date of Collection: 03/20/2022 Date of Reported: 03/27/2022 11:19 Results to: Ted eBllo MD Ted Bello MD CYTOLOGY ORDERABLES Final Result SEE NARRATIVE * Hepatitis C antibody, qualitative (01/25/2022 8:02 AM EDT) HCV NON-REACTIV E NON-REACTI VE [facility] Blood 01/25/2022 8:02 AM EDT 01/25/2022 8:06 AM EDT Pardeep Du MD LAB BLOOD ORDERABLES Final Result Performing Organization Address City/[facility]/ZIP Co de Phone Number [address] [address] * CT CHEST PULMONARY ANGIOGRAM (ACUTE) (09/26/2019 1:20 AM EST) Anatomical Region Laterality Modality Chest, Thoracic Vasculature Comp uted Tomography 09/26/2019 8:24 AM EST Impressions 09/26/2019 8:29 AM EST No pulmonary embolism demonstrated. Peripheral subsegmental emboli could be occult on this examination. No focal airspace infiltrate or pleural effusion. These findings were relayed to the Emergency Department by the [facility] on 09/26/2019. Incidental non-obstructive left nephrolithiasis. TOTAL CTDIvol: 113.60 mGy POS - [id number] Narrative 09/26/2019 8:29 AM EST COMPARISON: 09/25/2019 chest radiographs TECHNIQUE: Pre-contrast views were obtained for planning purposes. High density intravenous contrast is then administered and scanning obtained from lung apex to base. Multiplanar reformats and 3-D vascular reformats generated and study evaluated for specific evidence of pulmonary embolus. Automated exposure control utilized. FINDING: Examination is minimally limited due to patient body habitus and motion artifact. No filling defects indicative of emboli are outlined in the main right or left pulmonary arteries or the primary lobar or opacified segmental branches. No aortic aneurysm, significant pericardial effusion, or pathologically enlarged mediastinal or hilar lymph nodes identified. Lungs are slightly hypoinflated. No focal confluent airspace infiltrate or pleural effusion. Small right apical bulla. No worrisome pulmonary nodule. No lillian bronchiectasis or endotracheal or mainstem endobronchial nodules identified. No supraclavicular mass or axillary lymphadenopathy apparent. No traumatic or destructive skeletal lesions demonstrated. No adrenal mass. Spleen and visualized portions of the liver, kidneys, and pancreas are grossly unremarkable when allowing for a few small left lower pole intrarenal calculi. No lillian hydronephrosis. Multiple cholecystectomy clips. Procedure Note Gianni Sousa MD - 09/26/2019 COMPARISON: 09/25/2019 chest radiographs TECHNIQUE: Pre-contrast views were obtained for planning purposes. Highdensity intravenous contrast is then administered and scanning obtainedfrom lung apex to base. Multiplanar reformats and 3-D vascular reformatsgenerated and study evaluated for specific evidence of pulmonary embolus.Automated exposure control utilized. FINDING: Examination is minimally limited due to patient body habitus and motionartifact. No filling defects indicative of emboli are outlined in themain right or left pulmonary arteries or the primary lobar or opacifiedsegmental branches. No aortic aneurysm, significant pericardial effusion,or pathologically enlarged mediastinal or hilar lymph nodes identified. Lungs are slightly hypoinflated. No focal confluent airspace infiltrateor pleural effusion. Small right apical bulla. No worrisome pulmonarynodule. No lillian bronchiectasis or endotracheal or mainstem endobronchialnodules identified. No supraclavicular mass or axillary lymphadenopathy apparent. Notraumatic or destructive skeletal lesions demonstrated. No adrenal mass. Spleen and visualized portions of the liver, kidneys,and pancreas are grossly unremarkable when allowing for a few small leftlower pole intrarenal calculi. No lillian hydronephrosis. Multiplecholecystectomy clips. IMPRESSION: No pulmonary embolism demonstrated. Peripheral subsegmental emboli couldbe occult on this examination. No focal airspace infiltrate or pleuraleffusion. These findings were relayed to the Emergency Department by [facility] on 09/26/2019. Incidental non-obstructive left nephrolithiasis. TOTAL CTDIvol: 113.60 mGy POS - [id number] us Dilshad Duncan DO IMG CT CHEST Final Result from Last 3 Months or Most Recently Relevant to Health Maintenance Insurance [facility] PROGRESSIVE INSURANCE Advance Directives For more information, please contact: [phone] (9AM - 5PM [facility], Saturday-Saturday) * Full Code (Latest Code Status on File) Date Activated Date Inactivated Comments 12/09/2022 3:44 AM Question Answer Comments Code Status Confirmed With: PatientFamily Care Teams Executive Admin Relationship Specialty Start Date End Date Kirstin Reyes PA [address] [place] [address] [place] [address] PCP - General Physician Extrusion Utility Worker 05/03/25 Additional Source Comments The information contained in this document represents components of the legal health record. It is not the complete legal health record.[facility]
--- OUTSIDE RECORDS SUMMARY | 2025-06-25 10:02 | XMS_ITS | Encounter Summary ---
Author Organization [facility] Address [address] [place] [address] Phone Care Team Providers Care Hardscape Foreman Name Role Phone Helen Delilah Primary Care Provider Kirstin Reyes Primary Care Provide r Encounter Details Date Type Department Care Team (Latest Contact Info) Description 08/06/2024 Transcribe Orders Virtual Department [address] [place] [address] Gilda Carranza PA-C [address] [place] [address] [email or web address] Lesion of ovary (Primary Dx) Social History Tobacco Use Types Packs/Day Years [...] as food, clothing, or medical care? No 01/30/2024 In the past 12 months have y ou been in a relationship with a person who hurts, threatens, or tries to control you? No 01/30/2024 Are you denied basic needs s uch as food, clothing, or medical care? No 01/30/2024 In the past 12 months have y ou been in a relationship with a person who hurts, threatens, or tries to control you? No 01/30/2024 Comments No Sex and Gender Information Value [...] on file documented as of this encounter Results * US PELVIS TRANSABDOMINAL PLUS TRANSVAGINAL (08/17/2024 3:50 PM EDT) Anatomical Region Laterality Modality Pelvis, Uterus/Adnexa Ultrasound 08/17/2024 4:07 PM EDT Impressions 08/17/2024 4:10 PM EDT Heterogeneous uterine myometrium without focal lesion. Non-thickened endometrium. No focal lesions. Nonvisualized ovaries. There is a complex cyst identified within the left adnexa measuring up to 2.0 cm. Consider 6-12 week follow-up evaluation. Narrative 08/17/2024 4:10 PM EDT Procedure: US PELVIS TRANSABDOMINAL PLUS TRANSVAGINAL 08/17/2024 2:16 PM US Indications: Outside Radiology Order; hypodense lesion. Comparison: CT abdomen/pelvis dated July 22, 2024. Ultrasound pelvis dated May 28, 2023. MRI pelvis dated January 21, 2023. Technique: Transabdominal sonography of the pelvis was performed. In addition, transvaginal imaging was performed to better evaluate the adnexae and ovaries. Color Doppler imaging was performed to assess vascularity. No 3-D images were acquired. Reported LMP: 07/27/2024. FINDINGS: Uterus: The uterus measures 8.8 x 4.4 x 5.5 cm acquired transvaginally. The myometrium is mildly heterogeneous. The uterus is anteverted in its positioning. Multiple nabothian cysts. No focal cervical masses. No focal myometrial findings. Endometrium: The endometrium measures 6 mm and appears homogeneous. No endometrial masses. No fluid is identified within the endometrial canal. Ovaries: Neither ovary is identified. There is a complex cyst identified within the left adnexa measuring 2.0 x 1.8 x 1.4 cm. No central vascularity. No nodules or septations. Fluid: There is no evidence of free pelvic fluid. Procedure Note Nehemiah Qureshi MD - 08/17/2024 Procedure: US PELVIS TRANSABDOMINAL PLUS TRANSVAGINAL 08/17/2024 2:16PM US Indications: Outside Radiology Order; hypodense lesion. Comparison: CT abdomen/pelvis dated July 22, 2024. Ultrasound pelvisdated May 28, 2023. MRI pelvis dated January 21, 2023. Technique: Transabdominal sonography of the pelvis was performed. Inaddition, transvaginal imaging was performed to better evaluate theadnexae and ovaries. Color Doppler imaging was performed to assessvascularity. No 3-D images were acquired. Reported LMP: 07/27/2024. FINDINGS: Uterus: The uterus measures 8.8 x 4.4 x 5.5 cm acquired transvaginally. Themyometrium is mildly heterogeneous. The uterus is anteverted in itspositioning. Multiple nabothian cysts. No focal cervical masses. No focalmyometrial findings. Endometrium: The endometrium measures 6 mm and appears homogeneous. No endometrialmasses. No fluid is identified within the endometrial canal. Ovaries: Neither ovary is identified. There is a complex cyst identified within theleft adnexa measuring 2.0 x 1.8 x 1.4 cm. No central vascularity. Nonodules or septations. Fluid: There is no evidence of free pelvic fluid. IMPRESSION: Heterogeneous uterine myometrium without focal lesion. Non-thickened endometrium. No focal lesions. Nonvisualized ovaries. There is a complex cyst identified within the leftadnexa measuring up to 2.0 cm. Consider 6-12 week follow-up evaluation. us Gilda Carranza PA-C IMG US PELVIS Final Result documented in this encounter Visit Diagnoses Diagnosis Lesion of ovary- Primary Lesion of ovary documented in this encounter Additional Health Concerns Assessment Noted Time A Body Mass Index follow-up plan has been documented for the patient 07/07/2021 11:06 PM EDT PHQ-2 Depression Total Score: 2 12/06/19 22 1:31 PM EST documented as of this encounter Care Teams Hardscape Foreman Relationship Specialty Start Date End Date Delilah Cervantes DO [address] [place] [address] [place] [address] PCP - General Family Medicine 05/19/24 05/02/25 Kirstin Reyes PA [address] [place] [address] [place] [address] PCP - General Physician Route Process Administrator 05/03/25 documented as of this encounter Additional Source Comments The information contained in this document represents components of the legal health record. It is not the complete legal health record.[facility]
--- OUTSIDE RECORDS SUMMARY | 2025-06-25 10:02 | XMS_ITS | Encounter Summary ---
Author Organization [facility] Address [address] [place] [address] Phone Care Team Providers Care Stave Block Roller Name Role Phone Pardeep Du MD Primary Care Provider [phone] Delilah Cervantes DO Primary Care Provider Kirstin Reyes Primary Care Provide r Encounter Details Date Type Department Care Team (Late st Contact Info) Description 04/06/2024 Procedure Pass [facility], Ct Scan - [address] [id number] Social History Tobacco Use Types Packs/Day Years [...] documented as of this encounter Care Teams Stave Block Roller Relationship Specialty Start Date End Date Pardeep Du MD [address] [place] [address], [address] [place] [address] [email or web address] PCP - General Internal Medicine 04/01/19 05/18/24 Delilah Cervantes DO [address] [place] [address] PCP - General Family Medicine 05/19/24 05/02/25 Kirstin Reyes PA [address] [place] [address] [place] [address] PCP - General Physician Crusher Machine Operator 05/03/25 documented as of this encounter Additional Source Comments The information contained in this document represents components of the legal health record. It is not the complete legal health record.[facility]
--- OUTSIDE RECORDS SUMMARY | 2025-06-25 10:02 | XMS_ITS | Encounter Summary ---
Author Organization [facility] Address [address] [facility] [address] [place] [address] Phone Care Team Providers Care Funeral Pre Arrangement Specialist Name Role Phone Pardeep Du MD Primary Care Provider Delilah Cervantes DO Primary Care Provider Kirstin Reyes Primary Care Provide r Encounter Details Date Type Department Care Team (Late st Contact Info) Description 11/29/2023 Procedure Pass [facility], [address] [address] Social History Tobacco Use Types Packs/Day Years [...] with a working camera? Not on file Comments No Sex and Gender Information Value [...] documented as of this encounter Care Teams Funeral Pre Arrangement Specialist Relationship Specialty Start Date End Date Pardeep Du MD [address] [place] [address], 2nd [place] [address] francisco PCP - General Internal Medicine 04/01/19 05/18/24 Delilah Cervantes DO [address] [place] [address] PCP - General Family Medicine 05/19/24 05/02/25 Kirstin Reyes PA [address] [place] [address] [place] [address] PCP - General Physician Billing Supervisor 05/03/25 documented as of this encounter Additional Source Comments The information contained in this document represents components of the legal health record. It is not the complete legal health record.[facility]
--- OUTSIDE RECORDS SUMMARY | 2025-06-25 10:02 | XMS_ITS | Encounter Summary ---
Author Organization [facility] Address [address] [facility] [address] [place] [address] Phone Care Team Providers Care Cylinder Handler Name Role Phone Pardeep Du MD Primary Care Provider Pardeep Du MD Unavailable [phone] Jessie Smith RN Unavailable Delilah Cervantes DO Primary Care Provider Kirstin Reyes Primary Care Provide r Encounter Details Date Type Department Care Team (Late st Contact Info) Description 08/07/2021 Procedure Pass [facility], [facility] - [address] [address] Social History Tobacco Use Types Packs/Day Years [...] education for yourself related to: Learning the Singaporean language? Completing high school, earning a high [...] AM EST documented as of this encounter Functional Status * Calculated C-SSRS Risk Score (Lifetime/Recent) Answer Date of Assessment Author No Risk Indicated 08/07/2021 7:48 PM EDT Aniyah Price RN * [place] Suicide Severity Rating Scale (Screener/Recent Self-Report) Question Answer Date of Assessment Author 1. Wish to be (Past 1 Month) No 08/07/2021 7:48 PM EDT Aniyah Davis RN 2. Non-Specific Active Suici juan Thoughts (Past 1 Month) No 08/07/2021 7:48 PM EDT Faheem Davis RN 6. Suicidal Behavior (Lifetime) No 7:48 PM EDT Aniyah Davis RN documented as of this encounter Plan of [...] EDT PHQ-2 Depression Total Score: 0 06/30/20 9:06 AM EDT documented as of this encounter Care Teams Cylinder Handler Relationship Specialty Start Date End Date Pardeep Du MD [address] [place] [address] [email or web address] PCP - General Internal Medicine 04/01/19 05/18/24 Delilah Cervantes DO [address] [place] [address] PCP - General Family Medicine 05/19/24 05/02/25 Kirstin Reyes PA [address] [place] [address] PCP - General Physician Outbound Sales Consultant 05/03/25 Pardeep Du MD [address] [place] [address] francisco Insurance Assigned Provider 08/08/19 07/06/23 Jessie Smith, RN [address] [place] [address] [email or web address] iCMP Flight Control Specialist 12/12/22 01/24/23 documented as of this encounter Additional Source Comments The information contained in this document represents components of the legal health record. It is not the complete legal health record.[facility]
--- OUTSIDE RECORDS SUMMARY | 2025-06-25 10:02 | XMS_ITS | Encounter Summary ---
Author Organization [facility] Address [address] [facility] [address] [place] [address] Phone Care Team Providers Care Publicity Director Name Role Phone Pardeep Du MD Primary Care Provider [phone] Pardeep Du MD Unavailable [phone] Jessie Smith RN Unavailable [phone] Delilah Cervantes DO Primary Care Provider [phone] Kirstin Reyes Primary Care Provide r Encounter Details Date Type Department Care Team (Late st Contact Info) Description 09/16/2019 Ancillary Orders [facility],Outside Imaging 30 [place], [place] [id number] System, Provider Not In, [facility] [address] [address] Social History Tobacco Use Types Packs/Day Years Used Date Smoking Tobacco: Former Cigarettes Q uit: 07/2019 Smokeless Tobacco: Never Alcohol Use Standard Drinks/Week Comments Never 0 (1 standard drink = 0.6 oz pur e alcohol) Child or Family Care Answer Date Record ed 11 Do you have trouble with childcare or the care of a family member? No 04/22/2019 Education Answer Date Recorded 10 Are you interested in mor e education for yourself related to: Learning the Lithuanian language? Completing high school, earning a high school equivalency, or applying to college? Developing job, technical, or parenting skills? Yes 04/22/2019 Food Answer Date Recorded 02 Within the past 12 months we worried whether our food would run out before we got money to buy more. Often True 019 03 Within the past 12 months the food we bought just didn't last and we didn't have money to buy more. Often True 04/22/2019 Paying for Meds Answer Date Recorded 08 Do you have trouble paying for medicines? Yes 04/22/2019 Paying Utility Bills Answer Date Record ed 07 Do you have trouble paying your heating or el ectricity bill? No 04/22/2019 Transportation Answer Date Recorded 01 Has the lack of transport ation kept you from medical appointments or from getting medications? No 04/22/2019 Comments Unknown Sex and Gender Information Value Date Recorded Sex Assigned at Female 06/06/2019 11:51 AM EDT Legal Sex Female 1:12 PM EDT Gender Identity Female 06/06/2019 11:51 AM EDT Sexual Orientation Straight 12/12/2021 11 :34 AM EST documented as of this encounter Plan of Treatment Not on file documented as of this encounter Results * Mammogram Outside (No Interpretation) (11/09/2016 12:05 AM EST) Narrative SYSTEMGENERATED, DOCUMENTATION - 09/16/2019 11:03 AM EST This study is for PACS storage only and not for interpretation. us Provider Not In System PhD IMG OUTSIDE IMAGING W /OUT INTERPRETATION Final Result documented in this encounter Visit Diagnoses Not on filedocumented in this encounter Additional Health Concerns Infection Onset Date Last Indicated Resolved Time CoV-Exposed Comment:Positive COVID-19 09/02/2020 09/02/2020 09/04/2020 2:5 9 PM EST COVID-19 09/03/2020 09/03/2020 09/23/2020 1:24 AM EST CoV-Risk Comment:Per Ambulatory Triage Form 12/12/2021 12/12/202112/13 2:53 PM EST COVID-19 12/12/2021 12/12/2021 01/02/2022 1:23 AM EST CoV-Risk 06/28/2023 06/28/2023 07/09/2023 1:22 AM EDT Assessment Noted Time PHQ-2 Depression Total Score: 0 09/03/20 19 9:06 AM EDT documented as of this encounter Care Teams Publicity Director Relationship Specialty Start Date End Date Pardeep Du MD [address] [place] [address], [address] [place] [address] francisco PCP - General Internal Medicine 04/01/19 05/18/24 Delilah Cervantes DO [address] [place] [address] PCP - General Family Medicine 05/19/24 05/02/25 Kirstin Reyes PA [address] [place] [address] [place] [address] PCP - General Physician Door Builder 05/03/25 Pardeep Du MD [address] [place] [address] francisco Insurance Assigned Provider 08/08/19 07/06/23 Jessie Smith, RN [address] [place] [address] iCMP Profiling Machine Set Up Operator Tool 12/12/22 01/24/23 documented as of this encounter Additional Source Comments The information contained in this document represents components of the legal health record. It is not the complete legal health record.[facility]
--- OUTSIDE RECORDS SUMMARY | 2025-06-25 10:02 | XMS_ITS | Encounter Summary ---
Author Organization [facility] Address [address] [facility] [address] [place] [address] Phone Care Team Providers Care Electronic Security Technician Name Role Phone Pardeep Du MD Primary Care Provider Pardeep Du MD Unavailable [phone] Jessie Smith RN Unavailable [phone] Delilah Cervantes DO Primary Care Provider Kirstin Reyes Primary Care Provide r Encounter Details Date Type Department Care Team (Late st Contact Info) Description 10/04/2021 Procedure Pass [facility], [facility] [address] [place] [address] Social History Tobacco Use Types Packs/Day Years [...] education for yourself related to: Learning the Khmer language? Completing high school, earning a high [...] documented as of this encounter Care Teams Electronic Security Technician Relationship Specialty Start Date End Date Pardeep Du MD [address] [place] [address], 2nd [place] [address] francisco PCP - General Internal Medicine 04/01/19 05/18/24 Delilah Cervantes DO [address] [place] [address] PCP - General Family Medicine 05/19/24 05/02/25 Kirstin Reyes PA [address] [place] [address] [place] [address] PCP - General Physician Pole Peeling Machine Operator Helper 05/03/25 Pardeep Du MD [address] [place] [address], 2nd [place] [address] francisco [email or web address] Insurance Assigned Provider 08/08/19 07/06/23 Jessie Smith, RN [address] [place] [address] [email or web address] iCMP Director Of Community Life 12/12/22 01/24/23 documented as of this encounter Additional Source Comments The information contained in this document represents components of the legal health record. It is not the complete legal health record.[facility]
--- OUTSIDE RECORDS SUMMARY | 2025-06-25 10:02 | XMS_ITS | Encounter Summary ---
Author Organization [facility] Address [address] [facility] [address] [place] [address] Phone Care Team Providers Care Production Trainer Name Role Phone Pardeep Du MD Primary Care Provider Pardeep Du MD Unavailable Jessie Smith RN Unavailable Delilah Cervantes DO Primary Care Provider [phone] Kirstin Reyes Primary Care Provide r Encounter Details Date Type Department Care Team (Late st Contact Info) Description 07/23/2019 Ancillary Orders Non-Invasive Cardiology 30 [place] [address] Pardeep Du MD [address] [facility], 2nd [place] [address] francisco [email or web address] Chest pain, unspecified type Social History Tobacco Use Types Packs/Day Years Used Date Smoking Tobacco: Every Day Cigarettes Smokeless Tobacco: Never Alcohol Use Standard Drinks/Week Comments Never 0 (1 standard drink = 0.6 oz pur e alcohol) Child or Family Care Answer Date Record ed 11 Do you have trouble with childcare or the care of a family member? No 04/22/2019 Education Answer Date Recorded 10 Are you interested in mor e education for yourself related to: Learning the Finnish language? Completing high school, earning a high [...] documented as of this encounter Results * NC Stress Result for Nuclear Stress Test (07/23/2019 9:57 AM EDT) Max BP Systolic 130 mmHg [facility] Max BP Diastolic 70 mmHg [facility] Max HR 88 BPM [facility] Resting HR 57 BPM [facility] Resting BP Systolic 126 mmHg [facility] Resting BP Diastolic 78 mmHg [facility] Peak METS 1.0 METS [facility] Peak HR 87 BPM [facility] Anatomical Region Laterality Modality Heart Other 07/23/2019 9:32 AM EDT 07/23/2019 9:57 AM EDT Narrative 07/23/2019 11:53 AM EDT Response to Stress The patient exercised for minutes seconds, achieving 1.0 METS at peak exercise. Baseline blood pressure was 126/78 mmHg, and baseline heart rate was 57 bpm. The patient achieved a peak heart rate of 87 bpm, which is% of their maximum predicted heart rate. Patient was unable to walk on TM due to back and joint pain. The patient was infused with 0.4 mg of Regadenoson (Lexiscan) intravenously over 10 seconds followed immediately by the injection of the Tc99m Sestamibi by the senior nuclear medicine technologist. Patient tolerated infusion without complications. Test terminated due to completion of protocol. SUMMARY: 1. RESTING ECG: Normal sinus rhythm, inferior Q waves 2. EXERCISE ECG: No ischemic ECG changes after injection of Lexiscan 3. SYMPTOMS: Patient reported chest pressure after injection of Lexiscan, this resolved very quickly in recovery. She did not quantify chest pressure. 4. PHYSIOLOGY: Appropriate physiologic response to Lexiscan injection. Resting heart rate of 60 bpm israel to a maximum of 88 bpm. Vital signs stable and returned to baseline prior to discharge from the lab. 5. ARRHYTHMIA: No ectopy CONCLUSION: Normal EKG portion of pharmacologic nuclear stress test. No ECG changes suggestive of ischemia. Patient tolerated Lexiscan injection without complication. Nuclear images and report to follow. See attached stress report for additional details. Myron Brandon APRN with Dr. Araujo . Pardeep Du MD CV NM CARDIAC Final Resul t documented in this encounter Visit Diagnoses Diagnosis Chest pain, unspecified type Chest pain, unspecified type documented in this encounter Additional Health Concerns Infection Onset Date Last Indicated Resolved Time CoV-Exposed Comment:Positive COVID-19 09/02/2020 09/02/2020 09/04/2020 2:5 9 PM EST COVID-19 09/03/2020 09/03/2020 09/23/2020 1:24 AM EST CoV-Risk Comment:Per Ambulatory Triage Form 12/12/2021 12/12/202112/13 2:53 PM EST COVID-19 12/12/2021 12/12/2021 01/02/2022 1:23 AM EST CoV-Risk 06/28/2023 06/28/2023 07/09/2023 1:22 AM EDT Assessment Noted Time PHQ-2 Depression Total Score: 0 06/30/20 9:06 AM EDT documented as of this encounter Care Teams Production Trainer Relationship Specialty Start Date End Date Pardeep Du MD [address] [place] [address], 2[address] [place] [address] francisco [email or web address] PCP - General Internal Medicine 04/01/19 05/18/24 Delilah Cervantes DO [address] [place] [address] PCP - General Family Medicine 05/19/24 05/02/25 Kirstin Reyes PA [address] [place] [address] PCP - General Physician Oracle Adf Consultant 05/03/25 Pardeep Du MD [address] [place] [address], 2nd [place] [address] francisco Insurance Assigned Provider 08/08/19 07/06/23 Jessie Smith, RN [address] [place] [address] [email or web address] iCMP Longshore Equipment Operator 12/12/22 01/24/23 documented as of this encounter Additional Source Comments The information contained in this document represents components of the legal health record. It is not the complete legal health record.[facility]
--- OUTSIDE RECORDS SUMMARY | 2025-06-25 10:02 | XMS_ITS | Encounter Summary ---
Author Organization [facility] Address [address] [facility] [address] [place] [address] Phone Care Team Providers Care Senior Cobol Developer Name Role Phone Pardeep Du MD Primary Care Provider [phone] Pardeep Du MD Unavailable [phone] Jessie Smith RN Unavailable [phone] Delilah Cervantes DO Primary Care Provider [phone] Kirstin Reyes Primary Care Provide r Encounter Details Date Type Department Care Team (Late st Contact Info) Description 09/16/2019 Ancillary Orders [facility],Outside Imaging 30 [place], [place] [id number] System, Provider Not In, PhD Partners [address] [address] Social History Tobacco Use Types Packs/Day Years [...] education for yourself related to: Learning the Divehi language? Completing high school, earning a high [...] as of this encounter Results * US Breast Outside (No Interpretation) (07/14/2015 12:00 AM EDT) Narrative SYSTEMGENERATED, DOCUMENTATION - 09/16/2019 11:10 AM EST This study is for PACS [...] documented as of this encounter Care Teams Senior Cobol Developer Relationship Specialty Start Date End Date Pardeep Du MD [address] [place] [address], [address] [place] [address] francisco PCP - General Internal Medicine 04/01/19 05/18/24 Delilah Cervantes DO [address] [place] [address] PCP - General Family Medicine 05/19/24 05/02/25 Kirstin Reyes PA [address] [place] [address] [place] [address] PCP - General Physician Public Administration Teacher 05/03/25 Pardeep Du MD [address] [place] [address] francisco Insurance Assigned Provider 08/08/19 07/06/23 Jessie Smith, RN [address] [place] [address] iCMP Monument Stonecutter 12/12/22 01/24/23 documented as of this encounter Additional Source Comments The information contained in this document represents components of the legal health record. It is not the complete legal health record.[facility]
--- OUTSIDE RECORDS SUMMARY | 2025-06-25 10:02 | XMS_ITS | Encounter Summary ---
Author Organization [facility] Address [address] [facility] [address] [place] [address] Phone Care Team Providers Care Documentation Specialist Name Role Phone Pardeep Du MD Primary Care Provider [phone] Pardeep Du MD Unavailable [phone] Jessie Smith RN Unavailable [phone] Delilah Cervantes DO Primary Care Provider Kirstin Reyes Primary Care Provide r Encounter Details Date Type Department Care Team (Late st Contact Info) Description 10/18/2020 Procedure Pass [facility] - [address] [place] [address] Social History Tobacco Use Types Packs/Day Years [...] education for yourself related to: Learning the Indonesian language? Completing high school, earning a high [...] documented as of this encounter Care Teams Documentation Specialist Relationship Specialty Start Date End Date Pardeep Du MD [address] [place] [address], 2nd [place] [address] francisco PCP - General Internal Medicine 04/01/19 05/18/24 Delilah Cervantes DO [address] [place] [address] PCP - General Family Medicine 05/19/24 05/02/25 Kirstin Reyes PA [address] [place] [address] [place] [address] PCP - General Physician Entry Level Management 05/03/25 Pardeep Du MD [address] [place] [address], 2[address] [place] [address] francisco [email or web address] Insurance Assigned Provider 08/08/19 07/06/23 Jessie Smith, RN [address] [place] [address] [email or web address] iCMP Mold Filler Plastic Dolls 12/12/22 01/24/23 documented as of this encounter Additional Source Comments The information contained in this document represents components of the legal health record. It is not the complete legal health record.[facility]
--- OUTSIDE RECORDS SUMMARY | 2025-06-25 10:02 | XMS_ITS | Encounter Summary ---
Author Organization [facility] Address [address] [facility] [address] [place] [address] Phone Care Team Providers Care Thermodynamics Teacher Name Role Phone Pardeep Du MD Primary Care Provider [phone] Pardeep Du MD Unavailable [phone] Jessie Smith RN Unavailable [phone] Delilah Cervantes DO Primary Care Provider [phone] Kirstin Reyes Primary Care Provide r Encounter Details Date Type Department Care Team (Late st Contact Info) Description 12/17/2022 Procedure Pass [facility], [address] [place] [address] Social History Tobacco Use Types Packs/Day Years [...] education for yourself related to: Learning the Kiswahili language? Completing high school, earning a high [...] Onset Date Last Indicated Resolved Time CoV-Risk 06/28/2023 06/28/2023 07/09/2023 1:22 AM EDT Assessment Noted Time A Body Mass Index follow-up plan has been documented for the patient 07/07/2021 11:06 PM EDT PHQ-2 Depression Total Score: 2 12/06/19 22 1:31 PM EST documented as of this encounter Care Teams Thermodynamics Teacher Relationship Specialty Start Date End Date Pardeep Du MD [address] [place] [address], 2[address] [place] [address] francisco PCP - General Internal Medicine 04/01/19 05/18/24 Delilah Cervantes DO [address] [place] [address] PCP - General Family Medicine 05/19/24 05/02/25 Kirstin Reyes PA [address] [place] [address] [place] [address] PCP - General Physician Boiler Washer 05/03/25 Pardeep Du MD [address] [place] [address], 2[address] [place] [address] francisco [email or web address] Insurance Assigned Provider 08/08/19 07/06/23 Jessie Smith, RN [address] [place] [address] [email or web address] iCMP Computer Systems Hardware Analyst 12/12/22 01/24/23 documented as of this encounter Additional Source Comments The information contained in this document represents components of the legal health record. It is not the complete legal health record.[facility]
--- OUTSIDE RECORDS SUMMARY | 2025-06-25 10:02 | XMS_ITS | Encounter Summary ---
Author Organization [facility] Address [address] [facility] [address] [place] [address] Phone Care Team Providers Care Briar Cutter Name Role Phone Pardeep Du MD Primary Care Provider [phone] Pardeep Du MD Unavailable [phone] Jessie Smith RN Unavailable [phone] Delilah Cervantes DO Primary Care Provider Kirstin Reyes Primary Care Provide r Encounter Details Date Type Department Care Team (Late st Contact Info) Description 09/16/2019 Ancillary Orders [facility],Outside Imaging 30 [place], [place] [phone] System, Provider Not In, PhD Partners [address] [address] Social History Tobacco Use Types Packs/Day Years [...] education for yourself related to: Learning the Telugu language? Completing high school, earning a high [...] Results * US Breast Outside (No Interpretation) (05/10/2015 12:05 AM EDT) Narrative SYSTEMGENERATED, DOCUMENTATION - 09/16/2019 11:17 AM EST This study is for PACS [...] documented as of this encounter Care Teams Briar Cutter Relationship Specialty Start Date End Date Pardeep Du MD [address] [place] [address], [address] [place] [address] francisco PCP - General Internal Medicine 04/01/19 05/18/24 Delilah Cervantes DO [address] [place] [address] PCP - General Family Medicine 05/19/24 05/02/25 Kirstin Reyes PA [address] [place] [address] [place] [address] PCP - General Physician Fuel Efficient Aircraft Designer 05/03/25 Pardeep Du MD [address] [place] [address] francisco Insurance Assigned Provider 08/08/19 07/06/23 Jessie Smith, RN [address] [place] [address] iCMP Meal Miller 12/12/22 01/24/23 documented as of this encounter Additional Source Comments The information contained in this document represents components of the legal health record. It is not the complete legal health record.[facility]
--- OUTSIDE RECORDS SUMMARY | 2025-06-25 10:02 | XMS_ITS | Encounter Summary ---
Author Organization [facility] Address [address] [place] [address] Phone Care Team Providers Care Export Sales Assistant Name Role Phone Pardeep Du MD Primary Care Provider Pardeep Du MD Unavailable Delilah Cervantes DO Primary Care Provider Kirstin Reyes Primary Care Provide r Encounter Details Date Type Department Care Team (Late st Contact Info) Description 05/06/2023 Ancillary Orders [facility] [address] [place] [address] [place] [address] Pardeep Du MD [address] [facility], 2nd [place] [address] francisco [email or web address] Abnormal finding on mammography Social History Tobacco Use Types Packs/Day Years [...] documented as of this encounter Results * BI MAMMOGRAM DIAGNOSTIC WITH TOMOSYNTHESIS WITH CAD (LEFT) (06/14/2023 11:08 AM EDT) Anatomical Region Laterality Modality Breast Left Left Mammography 06/14/2023 11:1 9 AM EDT Impressions 06/14/2023 11:28 AM EDT Microcalcifications in the upper inner left breast are likely not milk of calcium. A six-month follow-up diagnostic left mammogram is recommended. Results and recommendation conveyed to the patient before she left the clinic. BI-RADS CATEGORY: 3 - Probably benign finding. Short interval follow up suggested. The breast tissue is heterogeneously dense, which could obscure a lesion on mammography. Narrative 06/14/2023 11:28 AM EDT HISTORY: See microcalcifications in the upper inner left breast. COMPARISON: Compared with left mammograms as far back as 05/10/2015 and as recent as 05/01/2023. FINDINGS: Region where the distributed punctate microcalcifications in the upper inner aspect of the left breast, slightly more grouped in the posterior inner aspect. Some of the microcalcifications likely layer on 90 degree views suggesting milk of calcium. No evidence of an underlying mass or architectural distortion. us Pardeep Du MD IMG MG EXAMS Final Resul t documented in this encounter Visit Diagnoses Diagnosis Abnormal finding on mammography Abnormal finding on mammography documented in this encounter Additional Health Concerns Infection Onset Date Last Indicated Resolved Time CoV-Risk 06/28/2023 06/28/2023 07/09/2023 1:22 AM EDT Assessment Noted Time A Body Mass Index follow-up plan has been documented for the patient 07/07/2021 11:06 PM EDT PHQ-2 Depression Total Score: 2 12/06/19 22 1:31 PM EST documented as of this encounter Care Teams Export Sales Assistant Relationship Specialty Start Date End Date Pardeep Du MD [address] [place] [address], 2nd [place] [address] francisco PCP - General Internal Medicine 04/01/19 05/18/24 Delilah Cervantes DO [address] [place] [address] PCP - General Family Medicine 05/19/24 05/02/25 Kirstin Reyes PA [address] [place] [address] [place] [address] PCP - General Physician Rn Internal Medicine 05/03/25 Pardeep Du MD [address] [place] [address], 2nd [place] [address] francisco [email or web address] Insurance Assigned Provider 08/08/19 07/06/23 documented as of this encounter Additional Source Comments The information contained in this document represents components of the legal health record. It is not the complete legal health record.[facility]
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
--- OUTSIDE RECORDS SUMMARY | 2025-06-25 10:02 | XMS_ITS | Encounter Summary ---
Author Organization [facility] Address [address] [place] [address] Phone Care Team Providers Care Social Studies Department Chair Name Role Phone Pardeep Du MD Primary Care Provider [phone] Pardeep Du MD Unavailable [phone] Jessie Smith RN Unavailable [phone] Delilah Cervantes DO Primary Care Provider Kirstin Reyes Primary Care Provide r Encounter Details Date Type Department Care Team (Late st Contact Info) Description 10/18/2020 Procedure Pass [facility] - [address] [place] [address] Social History Tobacco Use Types Packs/Day Years [...] education for yourself related to: Learning the Lao language? Completing high school, earning a high [...] documented as of this encounter Care Teams Social Studies Department Chair Relationship Specialty Start Date End Date Pardeep Du MD [address] [place] [address], 2nd [place] [address] francisco PCP - General Internal Medicine 04/01/19 05/18/24 Delilah Cervantes DO [address] [place] [address] PCP - General Family Medicine 05/19/24 05/02/25 Kirstin Reyes PA [address] [place] [address] [place] [address] PCP - General Physician Geomagnetist 05/03/25 Pardeep Du MD [address] [place] [address], 2[address] [place] [address] francisco [email or web address] Insurance Assigned Provider 08/08/19 07/06/23 Jessie Smith, RN [address] [place] [address] [email or web address] iCMP Supervisor Publications Production 12/12/22 01/24/23 documented as of this encounter Additional Source Comments The information contained in this document represents components of the legal health record. It is not the complete legal health record.[facility]
--- OUTSIDE RECORDS SUMMARY | 2025-06-25 10:02 | XMS_ITS | Encounter Summary ---
Author Organization [facility] Address [address] [place] [address] Phone Care Team Providers Care Foundry Molder Name Role Phone Pardeep Du MD Primary Care Provider Pardeep Du MD Unavailable [phone] Jessie Smith RN Unavailable Delilah Cervantes DO Primary Care Provider Kirstin Reyes Primary Care Provide r Encounter Details Date Type Department Care Team (Late st Contact Info) Description 05/04/2019 Ancillary Orders [facility] [address] [place] [address] [place] [address] Andrew Alberto MD [address] [place] [address] [facility] [place] [address] [email or web address] Pain in both knees, unspecified chronicity Social History Tobacco Use Types Packs/Day Years Used Date Smoking Tobacco: Every Day Cigarettes Smokeless Tobacco: Never Child or Family Care Answer Date Record ed 11 Do you have trouble with childcare or the care of a family member? No 04/22/2019 Education Answer Date Recorded 10 Are you interested in mor e education for yourself related to: Learning the Greek language? Completing high school, earning a high [...] documented as of this encounter Results * XR KNEE 4 OR MORE VIEWS (LEFT) (05/04/2019 1:08 PM EDT) Anatomical Region Laterality Modality Knee Left Radiographic Jesika ging 05/04/2019 1:28 PM EDT Impressions 05/04/2019 1:28 PM EDT Small to medium sized joint effusion. POS - [id number] Narrative 05/04/2019 1:28 PM EDT Left knee 4 views. No prior. Weightbearing AP view demonstrates low normal medial compartment joint space. No chondrocalcinosis. No bony lesion. Lateral views are obliqued limiting assessment. There appears to be joint effusion but smaller than that seen on the right. Procedure Note Perlita Garces MD - 05/04/2019 Left knee 4 views. No prior. Weightbearing AP view demonstrates low normalmedial compartment joint space. No chondrocalcinosis. No bony lesion.Lateral views are obliqued limiting assessment. There appears to be jointeffusion but smaller than that seen on the right. IMPRESSION: Small to medium sized joint effusion. POS - [id number] Andrew Alberto MD IMG XR LOWER EXTREMITY F inal Result * XR KNEE 4 OR MORE VIEWS (RIGHT) (05/04/2019 1:07 PM EDT) Anatomical Region Laterality Modality Knee Right Radiographic Jesika ging 05/04/2019 1:27 PM EDT Impressions 05/04/2019 1:28 PM EDT Moderate medial compartment osteoarthritis. No erosive changes or bony lesion seen. Prominent joint effusion. POS - [id number] Narrative 05/04/2019 1:28 PM EDT Right knee 4 views. No prior. Weightbearing AP view demonstrates joint space loss the medial compartment is some trace spurring. There is a fairly large joint effusion. Patellofemoral and lateral compartment joint spaces appear maintained. No chondrocalcinosis. No bony lesions. Procedure Note Perlita Garces MD - 05/04/2019 Right knee 4 views. No prior. Weightbearing AP view demonstrates jointspace loss the medial compartment is some trace spurring. There is afairly large joint effusion. Patellofemoral and lateral compartment jointspaces appear maintained. No chondrocalcinosis. No bony lesions. IMPRESSION: Moderate medial compartment osteoarthritis. No erosive changes or bonylesion seen. Prominent joint effusion. POS - [id number] Andrew Alberto MD IMG XR LOWER EXTREMITY F inal Result documented in this encounter Visit Diagnoses Diagnosis Pain in both knees, unspecified chronicity Pain in both knees, unspecified chronicity Pain in both knees, unspecified chronicity documented in this encounter Additional Health Concerns Infection Onset Date Last Indicated Resolved Time CoV-Exposed Comment:Positive COVID-19 09/02/2020 09/02/2020 09/04/2020 2:5 9 PM EST COVID-19 09/03/2020 09/03/2020 09/23/2020 1:24 AM EST CoV-Risk Comment:Per Ambulatory Triage Form 12/12/2021 12/12/202112/13 2:53 PM EST COVID-19 12/12/2021 12/12/2021 01/02/2022 1:23 AM EST CoV-Risk 06/28/2023 06/28/2023 07/09/2023 1:22 AM EDT documented as of this encounter Care Teams Foundry Molder Relationship Specialty Start Date End Date Pardeep Du MD [address] [place] [address], [address] [place] [address] francisco PCP - General Internal Medicine 04/01/19 05/18/24 Delilah Cervantes DO [address] [place] [address] PCP - General Family Medicine 05/19/24 05/02/25 Kirstin Reyes PA [address] [place] [address] PCP - General Physician Biofuels Production Manager 05/03/25 Pardeep Du MD [address] [place] [address] francisco Insurance Assigned Provider 08/08/19 07/06/23 Jessie Smith, RN [address] [place] [id number] iCMP Senior It Auditor 12/12/22 01/24/23 documented as of this encounter Additional Source Comments The information contained in this document represents components of the legal health record. It is not the complete legal health record.[facility]
--- OUTSIDE RECORDS SUMMARY | 2025-06-25 10:02 | XMS_ITS | Encounter Summary ---
Author Organization [facility] Address [address] [facility] [place] [address] Phone Care Team Providers Care Photographic Hand Developer Name Role Phone Pardeep Du MD Primary Care Provider [phone] Pardeep Du MD Unavailable [phone] Jessie Smith RN Unavailable [phone] Delilah Cervantes DO Primary Care Provider Kirstin Reyes Primary Care Provide r Encounter Details Date Type Department Care Team (Late st Contact Info) Description 03/23/2021 Procedure Pass [facility], [address] [place] [address] Social History Tobacco Use Types Packs/Day Years [...] education for yourself related to: Learning the British language? Completing high school, earning a high [...] documented as of this encounter Care Teams Photographic Hand Developer Relationship Specialty Start Date End Date Pardeep Du MD [address] [place] [address], 2nd [place] [address] francisco PCP - General Internal Medicine 04/01/19 05/18/24 Delilah Cervantes DO [address] [place] [address] PCP - General Family Medicine 05/19/24 05/02/25 Kirstin Reyes PA [address] [place] [address] [place] [address] PCP - General Physician Hydro Plant Technician 05/03/25 Pardeep Du MD [address] [place] [address], [address] [place] [address] francisco [email or web address] Insurance Assigned Provider 08/08/19 07/06/23 Jessie Smith, RN [address] [place] [address] [email or web address] iCMP Computer Console Operator 12/12/22 01/24/23 documented as of this encounter Additional Source Comments The information contained in this document represents components of the legal health record. It is not the complete legal health record.[facility]
--- OUTSIDE RECORDS SUMMARY | 2025-06-25 10:02 | XMS_ITS | Encounter Summary ---
Author Organization [facility] Address [address] [facility] [address] [place] [address] Phone Care Team Providers Care Carbon Printer Name Role Phone Pardeep Du MD Primary Care Provider [phone] Pardeep Du MD Unavailable [phone] Jessie Smith RN Unavailable [phone] Delilah Cervantes DO Primary Care Provider Kirstin Reyes Primary Care Provide r Encounter Details Date Type Department Care Team (Late st Contact Info) Description 12/09/2022 Procedure Pass [facility] [address] [place] [address] Social History Tobacco Use Types Packs/Day Years [...] education for yourself related to: Learning the Syriac language? Completing high school, earning a high [...] documented as of this encounter Care Teams Carbon Printer Relationship Specialty Start Date End Date Pardeep Du MD [address] [place] [address], 2[address] [place] [address] francisco PCP - General Internal Medicine 04/01/19 05/18/24 Delilah Cervantes DO [address] [place] [address] PCP - General Family Medicine 05/19/24 05/02/25 Kirstin Reyes PA [address] [place] [address] [place] [address] PCP - General Physician Marketing Developer 05/03/25 Pardeep Du MD [address] [place] [address], [address] [place] [address] francisco [email or web address] Insurance Assigned Provider 08/08/19 07/06/23 Jessie Smith, RN [address] [place] [address] [email or web address] iCMP Pin Worker 12/12/22 01/24/23 documented as of this encounter Additional Source Comments The information contained in this document represents components of the legal health record. It is not the complete legal health record.[facility]
--- OUTSIDE RECORDS SUMMARY | 2025-06-25 10:02 | XMS_ITS | Encounter Summary ---
Author Organization [facility] Address [address] [facility] [address] [place] [address] Phone Care Team Providers Care Glue Reel Operator Name Role Phone Pardeep Du MD Primary Care Provider Pardeep Du MD Unavailable [phone] Delilah Cervantes DO Primary Care Provider Kirstin Reyes Primary Care Provide r Encounter Details Date Type Department Care Team (Late st Contact Info) Description 04/05/2023 Procedure Pass [facility], [address] [address] Social History Tobacco Use Types Packs/Day Years [...] documented as of this encounter Care Teams Glue Reel Operator Relationship Specialty Start Date End Date Pardeep Du MD [address] [place] [address], 2nd [place] [address] francisco PCP - General Internal Medicine 04/01/19 05/18/24 Delilah Cervantes DO [address] [place] [address] PCP - General Family Medicine 05/19/24 05/02/25 Kirstin Reyes PA [address] [place] [address] PCP - General Physician Assayer Helper 05/03/25 Pardeep Du MD [address] [place] [address], 2nd [place] [address] francisco [email or web address] Insurance Assigned Provider 08/08/19 07/06/23 documented as of this encounter Additional Source Comments The information contained in this document represents components of the legal health record. It is not the complete legal health record.[facility]
--- OUTSIDE RECORDS SUMMARY | 2025-06-25 10:02 | XMS_ITS | Encounter Summary ---
Author Organization [facility] Address [address] [facility] [address] [place] [address] Phone Care Team Providers Care Applications Sales Consultant Name Role Phone Pardeep Du MD Primary Care Provider [phone]- [phone] Pardeep Du MD Unavailable [phone] Jessie Smith RN Unavailable [phone] Delilah Cervantes DO Primary Care Provider Kirstin Reyes Primary Care Provide r Encounter Details Date Type Department Care Team (Late st Contact Info) Description 09/16/2019 Ancillary Orders [facility],Outside Imaging 30 [place], [place] [id number] System, Provider Not In, PhD Partners [address] [address] Social History Tobacco Use Types Packs/Day Years [...] education for yourself related to: Learning the Malay language? Completing high school, earning a high [...] encounter Results * Mammogram Outside (No Interpretation) (05/10/2015 12:00 AM EDT) Narrative SYSTEMGENERATED, DOCUMENTATION - 09/16/2019 11:15 AM EST This study is for PACS [...] documented as of this encounter Care Teams Applications Sales Consultant Relationship Specialty Start Date End Date Pardeep Du MD [address] [place] [address], [address] [place] [address] francisco PCP - General Internal Medicine 04/01/19 05/18/24 Delilah Cervantes DO [address] [place] [address] PCP - General Family Medicine 05/19/24 05/02/25 Kirstin Reyes PA [address] [place] [address] [place] [address] PCP - General Physician Residential Care Officer 05/03/25 Pardeep Du MD [address] [place] [address] francisco Insurance Assigned Provider 08/08/19 07/06/23 Jessie Smith, RN [address] [place] [address] iCMP Adult Daycare Coordinator 12/12/22 01/24/23 documented as of this encounter Additional Source Comments The information contained in this document represents components of the legal health record. It is not the complete legal health record.[facility]
--- OUTSIDE RECORDS SUMMARY | 2025-06-25 10:02 | XMS_ITS | Encounter Summary ---
Author Organization [facility] Address [address] [facility] [address] [place] [address] Phone Care Team Providers Care Appraiser Name Role Phone Pardeep Du MD Primary Care Provider [phone] Pardeep Du MD Unavailable [phone] Jessie Smith RN Unavailable [phone] Delilah Cervantes DO Primary Care Provider Kirstin Reyes Primary Care Provide r Encounter Details Date Type Department Care Team (Late st Contact Info) Description 06/30/2019 Procedure Pass [facility], [address] [place] [address] Social History Tobacco Use Types Packs/Day Years [...] education for yourself related to: Learning the Urdu language? Completing high school, earning a high [...] documented as of this encounter Care Teams Appraiser Relationship Specialty Start Date End Date Pardeep Du MD [address] [place] [address], 2nd [place] [address] [email or web address] PCP - General Internal Medicine 04/01/19 05/18/24 Delilah Cervantes DO [address] [place] [address] PCP - General Family Medicine 05/19/24 05/02/25 Kirstin Reyes PA [address] [place] [address] [place] [address] PCP - General Physician Power Builder Developer 05/03/25 Pardeep Du MD [address] [place] [address], 2nd [place] [address] francisco [email or web address] Insurance Assigned Provider 08/08/19 07/06/23 Jessie Smith, RN [address] [place] [address] [email or web address] iCMP Trade Show Specialist 12/12/22 01/24/23 documented as of this encounter Additional Source Comments The information contained in this document represents components of the legal health record. It is not the complete legal health record.[facility]
--- OUTSIDE RECORDS SUMMARY | 2025-06-25 10:02 | XMS_ITS | Encounter Summary ---
Author Organization [facility] Address [address] [facility] [address] [place] [address] Phone Care Team Providers Care Mechanical Engineering Officer Name Role Phone Pardeep Du MD Primary Care Provider [phone]- [phone] Pardeep Du MD Unavailable [phone] Jessie Smith RN Unavailable [phone] Delilah Cervantes DO Primary Care Provider Kirstin Reyes Primary Care Provide r Encounter Details Date Type Department Care Team (Late st Contact Info) Description 06/20/2022 Procedure Pass [facility] Admitting Dept - Virtual Department 30 [place] [address] Social History Tobacco Use Types Packs/Day Years [...] education for yourself related to: Learning the Faroese language? Completing high school, earning a high [...] documented as of this encounter Care Teams Mechanical Engineering Officer Relationship Specialty Start Date End Date Pardeep Du MD [address] [place] [address], 2nd [place] [address] francisco PCP - General Internal Medicine 04/01/19 05/18/24 Delilah Cervantes DO [address] [place] [address] PCP - General Family Medicine 05/19/24 05/02/25 Kirstin Reyes PA [address] [place] [address] [place] [address] PCP - General Physician Trimmer Hand 05/03/25 Pardeep Du MD [address] [place] [address], 2nd [place] [address] francisco [email or web address] Insurance Assigned Provider 08/08/19 07/06/23 Jessie Smith, RN [address] [place] [address] [email or web address] iCMP Cager Operator 12/12/22 01/24/23 documented as of this encounter Additional Source Comments The information contained in this document represents components of the legal health record. It is not the complete legal health record.[facility]
--- OUTSIDE RECORDS SUMMARY | 2025-06-25 10:03 | XMS_ITS | Encounter Summary ---
Author Organization [facility] Address [address] [facility] [address] [place] [address] Phone Care Team Providers Care Orchestra Musician Name Role Phone Pardeep Du MD Primary Care Provider Pardeep Du MD Unavailable [phone] Jessie Smith RN Unavailable [phone] Delilah Cervantes DO Primary Care Provider Kirstin Reyes Primary Care Provide r Encounter Details Date Type Department Care Team (Late st Contact Info) Description 04/06/2022 Procedure Pass [facility] Admitting Dept Virtual Department 30 [place], [place] [id number] Social History Tobacco Use Types Packs/Day Years [...] education for yourself related to: Learning the Guamanian language? Completing high school, earning a high [...] documented as of this encounter Care Teams Orchestra Musician Relationship Specialty Start Date End Date Pardeep Du MD [address] [place] [address], 2nd [place] [address] francisco PCP - General Internal Medicine 04/01/19 05/18/24 Delilah Cervatnes DO [address] [place] [address] PCP - General Family Medicine 05/19/24 05/02/25 Kirstin Reyes PA [address] [place] [address] [place] [address] PCP - General Physician Slitter And Rewinder 05/03/25 Pardeep Du MD [address] [place] [address], 2nd [place] [address] francisco [email or web address] Insurance Assigned Provider 08/08/19 07/06/23 Jessie Smith, RN [address] [place] [address] [email or web address] iCMP Division Chief 12/12/22 01/24/23 documented as of this encounter Additional Source Comments The information contained in this document represents components of the legal health record. It is not the complete legal health record.[facility]
--- OUTSIDE RECORDS SUMMARY | 2025-06-25 10:03 | XMS_ITS | Clinical Summary ---
Author Organization [employer] Address [address] [facility] 7t [place] [address] Care Team Providers Care Optician Name Role Phone Unavailable Primary Care Provider [...] this topic Insurance [facility] C3
--- OUTSIDE RECORDS SUMMARY | 2025-06-25 10:03 | XMS_ITS | Encounter Summary ---
Author Organization [facility] Address [address] [facility] [address] [place] [address] Phone Care Team Providers Care Care Administrative Tech Name Role Phone Pardeep Du MD Primary Care Provider [phone] Pardeep Du MD Unavailable [phone] Jessie Smith RN Unavailable [phone] Delilah Cervantes DO Primary Care Provider Kirstin Reyes Primary Care Provide r Encounter Details Date Type Department Care Team (Late st Contact Info) Description 09/16/2019 Ancillary Orders [facility],Outside Imaging 30 [place], [place] [id number] System, Provider Not In, PhD Partners [address] [address] Social History Tobacco Use Types Packs/Day Years [...] education for yourself related to: Learning the Persian language? Completing high school, earning a high [...] Results * US Breast Outside (No Interpretation) (11/09/2016 12:00 AM EST) Narrative SYSTEMGENERATED, DOCUMENTATION - 09/16/2019 11:02 AM EST This study is for PACS [...] documented as of this encounter Care Teams Care Administrative Tech Relationship Specialty Start Date End Date Pardeep Du MD [address] [place] [address], [address] [place] [address] francisco PCP - General Internal Medicine 04/01/19 05/18/24 Delilah Cervantes DO [address] [place] [address] PCP - General Family Medicine 05/19/24 05/02/25 Kirstin Reyes PA [address] [place] [address] [place] [address] PCP - General Physician Trade Union Official 05/03/25 Pardeep Du MD [address] [place] [address] francisco Insurance Assigned Provider 08/08/19 07/06/23 Jessie Smith, RN [address] [place] [address] iCMP Shingle Bolt Cutter 12/12/22 01/24/23 documented as of this encounter Additional Source Comments The information contained in this document represents components of the legal health record. It is not the complete legal health record.[facility]
--- OUTSIDE RECORDS SUMMARY | 2025-06-25 10:03 | XMS_ITS | Encounter Summary ---
Author Organization [facility] Address [address] [facility] [address] [place] [address] Phone Care Team Providers Care Tractor Crane Operator Name Role Phone Pardeep Du MD Primary Care Provider [phone]- [phone] Pardeep Du MD Unavailable [phone] Jessie Smith RN Unavailable [phone] Delilah Cervantes DO Primary Care Provider Kirstin Reyes Primary Care Provide r Encounter Details Date Type Department Care Team (Late st Contact Info) Description 02/28/2022 Procedure Pass [facility] - [address] [place] [address] Social History Tobacco Use Types Packs/Day Years [...] education for yourself related to: Learning the Slovak language? Completing high school, earning a high [...] documented as of this encounter Care Teams Tractor Crane Operator Relationship Specialty Start Date End Date Pardeep Du MD [address] [place] [address], 2nd [place] [address] francisco PCP - General Internal Medicine 04/01/19 05/18/24 Delilah Cervantes DO [address] [place] [address] PCP - General Family Medicine 05/19/24 05/02/25 Kirstin Reyes PA NPI: [id number] [place] [address] [place] [address] PCP - General Physician Combine Driver 05/03/25 Pardeep Du MD [address] [place] [address], 2nd [place] [address] francisco [email or web address] Insurance Assigned Provider 08/08/19 07/06/23 Jessie Smith, RN [address] [place] [address] [email or web address] iCMP Railcar Switchman 12/12/22 01/24/23 documented as of this encounter Additional Source Comments The information contained in this document represents components of the legal health record. It is not the complete legal health record.[facility]
--- OUTSIDE RECORDS SUMMARY | 2025-06-25 10:03 | XMS_ITS | Encounter Summary ---
Author Organization [facility] Address [address] [facility] [address] [place] [address] Phone Care Team Providers Care Forestry Instructor Name Role Phone Pardeep Du MD Primary Care Provider [phone]- [phone] Pardeep Du MD Unavailable [phone] Jessie Smith RN Unavailable [phone] Delilah Cervantes DO Primary Care Provider Kirstin Reyes Primary Care Provide r Encounter Details Date Type Department Care Team (Late st Contact Info) Description 02/28/2022 Procedure Pass [facility] - [address] [place] [address] Social History Tobacco Use Types Packs/Day Years [...] documented as of this encounter Care Teams Forestry Instructor Relationship Specialty Start Date End Date Pardeep Du MD [address] [place] [address], 2nd [place] [address] francisco PCP - General Internal Medicine 04/01/19 05/18/24 Delilah Cervantes DO [address] [place] [address] PCP - General Family Medicine 05/19/24 05/02/25 Kirstin Reyes PA [address] [place] [address] [place] [address] PCP - General Physician Body Shop Mechanic 05/03/25 Pardeep Du MD [address] [place] [address], 2nd [place] [address] francisco [email or web address] Insurance Assigned Provider 08/08/19 07/06/23 Jessie Smith, RN [address] [place] [address] [email or web address] iCMP Porcelain Enamel Laborer 12/12/22 01/24/23 documented as of this encounter Additional Source Comments The information contained in this document represents components of the legal health record. It is not the complete legal health record.[facility]
--- OUTSIDE RECORDS SUMMARY | 2025-06-25 10:03 | XMS_ITS | Encounter Summary ---
Author Organization [facility] Address [address] [facility] [address] [place] [address] Phone Care Team Providers Care Manager Of Hospital Name Role Phone Pardeep Du MD Primary Care Provider [phone]- [phone] Pardeep Du MD Unavailable [phone] Jessie Smith RN Unavailable [phone] Delilah Cervantes DO Primary Care Provider Kirstin Reyes Primary Care Provide r Encounter Details Date Type Department Care Team (Late st Contact Info) Description 09/16/2019 Ancillary Orders [facility],Outside Imaging 30 [place], [place] [phone] System, Provider Not In, PhD Partners [address] [address] Social History Tobacco Use Types Packs/Day Years [...] education for yourself related to: Learning the Kyrgyz language? Completing high school, earning a high [...] Results * US Breast Outside (No Interpretation) (03/01/2016 12:00 AM EDT) Narrative SYSTEMGENERATED, DOCUMENTATION - 09/16/2019 11:05 AM EST This study is for PACS [...] as of this encounter Care Teams Manager Of Hospital Relationship Specialty Start Date End Date Pardeep Du MD [address] [place] [address], [address] [place] [address] francisco PCP - General Internal Medicine 04/01/19 05/18/24 Delilah Cervantes DO [address] [place] [address] PCP - General Family Medicine 05/19/24 05/02/25 Kirstin Reyes PA [address] [place] [address] [place] [address] PCP - General Physician Distribution Manager 05/03/25 Pardeep Du MD [address] [place] [address] francisco Insurance Assigned Provider 08/08/19 07/06/23 Jessie Smith, RN [address] [place] [address] iCMP Paper Machine Backtender 12/12/22 01/24/23 documented as of this encounter Additional Source Comments The information contained in this document represents components of the legal health record. It is not the complete legal health record.[facility]
--- OUTSIDE RECORDS SUMMARY | 2025-06-25 10:03 | XMS_ITS | Encounter Summary ---
Author Organization [facility] Address [address] [facility] [address] [place] [address] Phone Care Team Providers Care Media Liaison Officer Name Role Phone Pardeep Du MD Primary Care Provider [phone] Pardeep Du MD Unavailable [phone] Jessie Smith RN Unavailable Delilah Cervantes DO Primary Care Provider Kirstin Reyes Primary Care Provide r Encounter Details Date Type Department Care Team (Late st Contact Info) Description 03/05/2022 Procedure Pass [facility], [facility] Scan - [address] [address] Social History Tobacco Use Types Packs/Day Years [...] education for yourself related to: Learning the Hungarian language? Completing high school, earning a high [...] Date of Assessment Author No Risk Indicated 03/05/2022 1:02 PM EDT Drake Cha, MEGHAN * [place] Suicide Severity Rating Scale (Screener/Recent Self-Report) Question Answer Date of Assessment Author 1. Wish to be (Past 1 Month) No 03/05/2022 1:02 PM EDT Drake Centeno, MEGHAN 2. Non-Specific Active Suicidal Thoughts (Past 1 Month) No 03/05/2022 1:02 PM EDT Drake Centeno, MEGHAN 6. Suicidal Behavior (Lifetime) No 03/05/2022 1:02 PM EDT Drake Centeno, MEGHAN documented as of this encounter Plan of [...] documented as of this encounter Care Teams Media Liaison Officer Relationship Specialty Start Date End Date Pardeep Du MD [address] [place] [address], [address] [place] [address] francisco PCP - General Internal Medicine 04/01/19 05/18/24 Delilah Cervantes DO [address] [place] [address] PCP - General Family Medicine 05/19/24 05/02/25 Kirstin Reyes PA [address] [place] [address] PCP - General Physician Adobe Architect 05/03/25 Pardeep Du MD [address] [place] [address], [address] [place] [address] francisco [email or web address] Insurance Assigned Provider 08/08/19 07/06/23 Jessie Smith, RN [address] [place] [address] [email or web address] iCMP Resin Coater 12/12/22 01/24/23 documented as of this encounter Additional Source Comments The information contained in this document represents components of the legal health record. It is not the complete legal health record.[facility]
--- OUTSIDE RECORDS SUMMARY | 2025-06-25 10:03 | XMS_ITS | Encounter Summary ---
Author Organization [facility] Address [address] [facility] [address] [place] [address] Phone Care Team Providers Care Refrigeration Systems Installer Name Role Phone Pardeep Du MD Primary Care Provider [phone] Pardeep uD MD Unavailable [phone] Jessie Smith RN Unavailable [phone] Delilah Cervantes DO Primary Care Provider [phone] Kirstin Reyes Primary Care Provide r Encounter Details Date Type Department Care Team (Late st Contact Info) Description 05/10/2020 Procedure Pass [facility], [address] [place] [address] Social History Tobacco Use Types Packs/Day Years [...] education for yourself related to: Learning the Korean language? Completing high school, earning a high [...] or from getting medications? No 04/22/2019 Comments No Sex and Gender Information Value Date Recorded Sex Assigned at Female 06/06/2019 11:51 AM EDT Legal Sex Female 1:12 PM EDT Gender Identity Female 06/06/2019 11:51 AM EDT Sexual Orientation Straight 12/12/2021 11 :34 AM EST documented as of this encounter Last Filed Vital Signs Vital Sign Reading Time Taken Comments Blood Pressure - - Pulse - - Temperature - - Respiratory Rate - - Oxygen Saturation - - Inhaled Oxygen Concentration - - Weight 147.9 kg (326 lb) 05/12/2020 11:07 AM EDT Height 177.8 cm (5' 10 ) 05/12/2020 11:07 AM EDT Body Mass Index 46.78 05/12/2020 11:07 AM EDT documented in this encounter Plan of Treatment Not on [...] documented as of this encounter Care Teams Refrigeration Systems Installer Relationship Specialty Start Date End Date Pardeep Du MD [address] [place] [address], [address] [place] [address] francisco PCP - General Internal Medicine 04/01/19 05/18/24 Delilah Cervantes DO [address] [place] [address] PCP - General Family Medicine 05/19/24 05/02/25 Kirstin Reyes PA [address] [place] [address] [place] [address] PCP - General Physician Histotechnologist 05/03/25 Pardeep Du MD [address] [place] [address], [address] [place] [address] francisco [email or web address] Insurance Assigned Provider 08/08/19 07/06/23 Jessie Smith, RN [address] [place] [address] [email or web address] iCMP Process Control Tech 12/12/22 01/24/23 documented as of this encounter Additional Source Comments The information contained in this document represents components of the legal health record. It is not the complete legal health record.[facility]
--- OUTSIDE RECORDS SUMMARY | 2025-06-25 10:03 | XMS_ITS | Encounter Summary ---
Author Organization [facility] Address [address] [place] [address] Phone Care Team Providers Care Trainman Name Role Phone Pardeep Du MD Primary Care Provider [phone] Pardeep Du MD Unavailable [phone] Jessie Smith RN Unavailable [phone] Delilah Cervantes DO Primary Care Provider [phone] Kirstin Reyes Primary Care Provide r Reason for Referral * MRI/CAT Scan - Closed Specialty Diagnoses / Procedures Referred By Contac t Referred To Contact Radiology Diagnoses Derangement of anterior horn of lateral meniscus of left knee due to old injury Procedures MRI Knee (Left) Shazia Yeh NP Phone: tel: fax: mailto: Referral ID Status Reason Start Date Expiration Date Visits Re quested Visits Authorized [id number] Closed 05/17/2020 05/17/2021 3 3 Encounter Details Date Type Department Care Team (Late st Contact Info) Description 05/10/2020 Ancillary Orders Virtual Department [address] [place] [address] Shazia Yeh NP [address] [place] [phone] [email or web address] Derangement of anterior horn of lateral meniscus of left knee due to old injury Social History Tobacco Use Types Packs/Day Years [...] education for yourself related to: Learning the [place] language? Completing high school, earning a high [...] documented as of this encounter Results * MRI KNEE WITHOUT CONTRAST (LEFT) (05/17/2020 5:01 PM EDT) Anatomical Region Laterality Modality Knee Left Magnetic Resonan ce 05/18/2020 7:51 AM EDT Impressions 05/18/2020 8:00 AM EDT *Image quality is degraded due to motion artifact and resolution is limited due to body coil utilized in place of the knee coil due to patient's habitus.* 1.Stable uncomplicated tear of the medial meniscus body. 2.Progressive diffuse posterior cruciate ligament tear. 3.Nondiagnostic evaluation of the ACL. 4.Chronic moderate size joint effusion, extensor mechanism tendinopathy and moderate patellar chondromalacia POS - [id number] Narrative 05/18/2020 8:00 AM EDT HISTORY: Derangement of anterior horn of lateral meniscus of left knee due to old injury COMPARISON: 06/19/2019. TECHNIQUE: Exam performed on a 1.5 Alessia high-field MRI scanner. Axial proton density with fat suppression, coronal proton density and proton density with fat suppression, sagittal T1, oblique sagittal proton density and proton density with fat suppression parallel to the plane of the ACL sequences were obtained. MRI LEFT KNEE FINDINGS: *Image quality is degraded due to motion artifact and resolution is limited due to body coil utilized in place of the knee coil due to patient's habitus.* Patella: Stable mild lateral patella subluxation and focal moderate chondromalacia with a small fissure within the lateral facet. Menisci: Stable hyperintense linear signal within the body of the medial meniscus on the coronal sequence which extends to the intra-articular surface. Lateral meniscus is grossly intact. No tear or discoid meniscus. Cruciate ligaments: Increase in extent of the diffuse intrasubstance fluid signal intensity within the posterior cruciate ligament. Nondiagnostic evaluation of the anterior cruciate ligament. Collateral ligaments: Medial and lateral collateral ligaments are intact. Extensor mechanism: Stable diffuse tendinopathy with intermediate signal in the distal quadriceps and diffusely throughout the patellar tendon with redundancy of the patella tendon. Bone marrow/joint: Stable moderate size joint effusion. No Huff's cyst. Large habitus and mild diffuse soft tissue edema. Diffuse fatty muscle atrophy. Stable small degenerative cysts in the distal central femur and central tibial plateau. No suspicious or destructive bone lesions. No malalignment. No advanced joint space narrowing. Procedure Note Wiliam Torres MD - 05/18/2020 HISTORY: Derangement of anterior horn of lateral meniscus of left kneedue to old injury COMPARISON: 06/19/2019. TECHNIQUE: Exam performed on a 1.5 Alessia high-field MRI scanner. Axialproton density with fat suppression, coronal proton density and protondensity with fat suppression, sagittal T1, oblique sagittal proton densityand proton density with fat suppression parallel to the plane of the ACLsequences were obtained. MRI LEFT KNEE FINDINGS: *Image quality is degraded due to motion artifact and resolution islimited due to body coil utilized in place of the knee coil due topatient's habitus.* Patella: Stable mild lateral patella subluxation and focal moderatechondromalacia with a small fissure within the lateral facet. Menisci: Stable hyperintense linear signal within the body of the medialmeniscus on the coronal sequence which extends to the intra-articularsurface. Lateral meniscus is grossly intact. No tear or discoidmeniscus. Cruciate ligaments: Increase in extent of the diffuse intrasubstancefluid signal intensity within the posterior cruciate ligament.Nondiagnostic evaluation of the anterior cruciate ligament. Collateral ligaments: Medial and lateral collateral ligaments areintact. Extensor mechanism: Stable diffuse tendinopathy with intermediate signalin the distal quadriceps and diffusely throughout the patellar tendon withredundancy of the patella tendon. Bone marrow/joint: Stable moderate size joint effusion. No Huff's cyst.Large habitus and mild diffuse soft tissue edema. Diffuse fatty muscleatrophy. Stable small degenerative cysts in the distal central femur andcentral tibial plateau. No suspicious or destructive bone lesions. Nomalalignment. No advanced joint space narrowing. IMPRESSION: *Image quality is degraded due to motion artifact and resolution islimited due to body coil utilized in place of the knee coil due topatient's habitus.* 1.Stable uncomplicated tear of the medial meniscus body. 2.Progressive diffuse posterior cruciate ligament tear. 3.Nondiagnostic evaluation of the ACL. 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 Derangement of anterior horn of lateral meniscus of left knee due to old injury documented in this encounter Additional Health Concerns [...] documented as of this encounter Care Teams Trainman Relationship Specialty Start Date End Date Pardeep Du MD [address] [place] [address], [address] [place] [phone] francisco PCP - General Internal Medicine 04/01/19 05/18/24 Delilah Cervantes DO [address] [place] [id number] PCP - General Family Medicine 05/19/24 05/02/25 Kirstin Reyes PA [address] [place] [address] [place] [address] PCP - General Physician Slitter Operator 05/03/25 Pardeep Du MD [address] [place] [address], [address] [place] [phone] francisco Insurance Assigned Provider 08/08/19 07/06/23 Jessie Smith, MEGHAN [address] [place] [id number] [email or web address] iCMP Income Tax Manager 12/12/22 01/24/23 documented as of this encounter Additional Source Comments The information contained in this document represents components of the legal health record. It is not the complete legal health record.[facility]
--- OUTSIDE RECORDS SUMMARY | 2025-06-25 10:03 | XMS_ITS | Encounter Summary ---
Author Organization [facility] Address [address] [place] [address] Phone Care Team Providers Care Tower Attendant Name Role Phone Pardeep Du MD Primary Care Provider [phone] Pardeep Du MD Unavailable [phone] Jessie Smith RN Unavailable [phone] Delilah Cervantes DO Primary Care Provider Kirstin Reyes Primary Care Provide r Encounter Details Date Type Department Care Team (Late st Contact Info) Description 06/02/2019 Procedure Pass [facility], [address] [place] [address] Social History Tobacco Use Types Packs/Day Years [...] education for yourself related to: Learning the Wol[place] language? Completing high school, earning a high [...] documented as of this encounter Care Teams Tower Attendant Relationship Specialty Start Date End Date Pardeep Du MD [address] [place] [address], [address] [place] [address] francisco PCP - General Internal Medicine 04/01/19 05/18/24 Delilah Cervantes DO [address] [place] [id number] PCP - General Family Medicine 05/19/24 05/02/25 Kirstin Reyes PA [address] [place] [address] [place] [address] PCP - General Physician Veneer Jointer Returner 05/03/25 Pardeep Du MD [address] [place] [address], [address] [place] [address] francisco [email or web address] Insurance Assigned Provider 08/08/19 07/06/23 Jessie Smith, RN [address] [place] [phone] [email or web address] iCMP Live In Caregiver 12/12/22 01/24/23 documented as of this encounter Additional Source Comments The information contained in this document represents components of the legal health record. It is not the complete legal health record.[facility]
== END 2025-06-25 09:42 | disposition home or self-care (01) ==
LOC: HO.HMCH 09:14
PROVIDERS: Visit Provider Nurse Practitioner Family
DX: R60.0 Localized edema (principal); I10 Essential (primary) hypertension

== ENCOUNTER → 2025-06-25 09:13 | Outpatient (BNVA) | payer OTHER, SELFPAY | PROVIDERS: Visit Provider Nurse Practitioner Family | DX: R60.0 Localized edema (principal); I10 Essential (primary) hypertension; J45.909 Unspecified asthma, uncomplicated; R06.02 Shortness of breath; R07.9 Chest pain, unspecified; E66.01 Morbid (severe) obesity due to excess calories; Z68.43 Body mass index [BMI] 50.0-59.9, adult | CPT/HCPCS: 99212 ==

== ENCOUNTER 2025-06-29 18:58 | Emergency (ER) | payer OTHER, SELFPAY ==
[2025-06-29 19:24] VITALS: BP 151/69; PULSE 94; RESP 18; TEMP 37; O2SAT 96; BMI 59.0
--- NOTE | 2025-06-29 19:26 | ED.GENADULT ---
HPI - General Adult General Chief complaint: Back Pain/Injury Stated complaint: Neck pain Time Seen by Provider: 06/29/25 22:25 Source: patient, RN notes reviewed, old records reviewed and hog counter Mode of arrival: ambulatory Limitations: language barrier History of Present Illness ED Provider: Henny HPI narrative: 55-year-old female presents for evaluation of neck and back pain. The pain started last night. She denies any injury, falls, heavy lifting or repetitive motions. Her pain is worse with moving or bending over. She reports that she felt the pain when she was lying down. She reports that she sleeps with only 2 pillows at night she has not taken anything to help alleviate her symptoms. She also reports feeling weak no chest pain, shortness of breath, abdominal pain, nausea, vomiting Related Data Home Medications ?Medication ?Instructions ?Recorded ?Confirmed ibuprofen 800 mg tablet 800 mg PO TID 03/31/21 06/25/25 omeprazole 20 mg capsule,delayed 20 mg PO DAILY 06/17/24 06/25/25 release mecobalamin (vitamin B12) 10,000 1,000 mcg subcut .once a week 06/24/24 06/25/25 mcg solution for injection cyanocobalamin (vitamin B-12) mcg IM 02/26/25 06/25/25 1,000 mcg/mL injection solution Previous Rx's ?Medication ?Instructions ?Recorded albuterol sulfate 90 mcg/actuation 2 puff inhalation Q6H PRN 07/20/24 aerosol inhaler (Proventil HFA) shortness of breath or wheezing #6.7 grams cholecalciferol (vitamin D3) 25 50 mcg (2 x 25 mcg (1,000 unit)) 07/20/24 mcg (1,000 unit) capsule (Vitamin PO DAILY #30 caps D3) fexofenadine 180 mg tablet 180 mg PO DAILY #30 tabs 07/20/24 vitamin A palmitate 3,000 mcg 20,000 unit PO DAILY 30 days #60 07/20/24 (10,000 unit) tablet tabs thiamine HCl (vitamin B1) 100 mg 100 mg PO DAILY 90 days #90 tabs 07/31/24 tablet sucralfate 1 gram tablet (Carafate) 1 g PO BID PRN acid reflux #14 tabs 09/03/24 Shower Chair #1 ea 09/09/24 furosemide 40 mg tablet 60 mg (1.5 x 40 mg) PO DAILY #135 11/24/24 tabs Kneeling Scooter #1 ea 12/04/24 sennosides 8.6 mg capsule (senna) 8.6 mg PO BEDTIME PRN constipation 12/16/24 #30 caps lidocaine 5 % topical patch 1 patch topical DAILY PRN pain #30 03/12/25 (Lidoderm) ea naproxen 500 mg tablet 500 mg PO BID PRN pain 10 days #20 03/12/25 tabs hypoallergenic sanitary wipes #1 ea 03/18/25 Bed pads #100 ea 04/09/25 Depends sanitary pads #200 ea 04/09/25 wipes #2 ea 04/09/25 methocarbamol 500 mg tablet 500 mg PO TID PRN muscle spasm #90 04/27/25 tabs levothyroxine 25 mcg tablet 25 mcg PO DAILY #30 tabs 06/15/25 prednisone 20 mg tablet 40 mg (2 x 20 mg) PO DAILY #8 tabs 06/17/25 chlorthalidone 25 mg tablet 25 mg PO DAILY #90 tabs 06/25/25 cyclobenzaprine 10 mg tablet 10 mg PO TID PRN muscle spasm #20 06/29/25 tabs ibuprofen 600 mg tablet 600 mg PO Q6H PRN pain #20 tabs 06/29/25 Allergies Allergy/AdvReac Type Severity Reaction Status Date / Time morphine Allergy Severe Shortness Verified 06/29/25 19:28 of Breath Seasonal Allergies Allergy Severe Sneezing Verified 06/29/25 19:28 latex (Latex) Allergy Intermediate ITCHY, Verified 06/29/25 19:28 RASH , AND FUNGUS oxycodone Allergy Intermediate Rash Verified 06/29/25 19:28 opium (anthroposophic) Allergy Unknown Hives Verified 06/29/25 19:28 Review of Systems Constitutional: Constitutional: Denies body ache(s), Denies chills and Denies fever(s) Eyes: Eyes: Denies blurry vision ENT: Denies vertigo, Denies dizziness and Reports neck pain Cardiovascular: Cardiovascular: Denies chest pain Respiratory: Respiratory: Denies cough Gastrointestinal: Gastrointestinal: Denies abdominal pain Musculoskeletal: Musculoskeletal: Reports back pain, Reports neck pain, Reports radiating pain into limb and Reports stiffness Integumentary/Breasts: Skin/Breast: Denies rash Neurologic: Denies vertigo and Denies dizziness Psychiatric: Psychiatric: Denies anxiety PMFSH Past Medical History Medical History (Updated 06/30/25 @ 00:01 by Raul Alberts) Peripheral edema Essential hypertension Subclinical hypothyroidism Thyromegaly Lipoma of chest wall Chronic diastolic (congestive) heart failure Anal fistula Sinus complaint Sterilization Kidney stone Acute appendicitis Vesicular dermatitis Enlarged lymph node Acute bacterial tonsillitis History of claustrophobia History of anxiety Hx of tendinitis Hx of bursitis History of knee problem Hx of chronic arthritis Family history of heart murmur History of asthma Surgical History History of hand surgery Hx of carpal tunnel repair H/O bilateral mastectomy History of kidney surgery Hx of tubal ligation Hx of tonsillectomy Hx of breast surgery Hx of appendectomy Hx of cholecystectomy Hx of knee surgery History of Achilles tendon repair Family History Family History Mother Accelerated hypertension Arthritis Cancer of stomach Father Arthritis Sister No problems noted. Sister Arthritis Accelerated hypertension Sister No problems noted. Sister No problems noted. Brother Overdose Brother HIV disease Son Asthma Son No problems noted. Son No problems noted. Son No problems noted. Daughter No problems noted. Social History Social History Housing: Apartment Alcohol intake: never Patient Tobacco Use Status: Former Tobacco user Tobacco use type: Cigarette Cigarettes Per Day: 1 Years Smoked: 30 e-Cigarette/Vaping Use: Never Used Second Hand Smoke Exposure: Yes Advance Directives: No Advance Directives Information Provided: No service: No Current occupational status: unemployed Cognitive needs: Yes Hearing needs: No Vision needs: Yes Physical Exam ED Vital Signs: Vital Signs - 24 hr 06/29/25 19:24 06/29/25 23:28 Temperature 98.6 F 98.6 F Pulse Rate 94 94 Respiratory Rate 18 18 Blood Pressure 151/69 H 151/69 H Pulse Oximetry 96 96 Oxygen Delivery Method Room Air Room Air BMI result Body Mass Index 59.0 Const General: healthy appearing, comfortable, no acute distress, alert and awake Nutritional Appearance: well nourished Orientation/consciousness: patient oriented x3 HENMT Head: Yes normocephalic and Yes atraumatic Eyes Eyelids: Yes eyelids normal Conjunctivae: conjunctivae normal Sclerae: sclerae normal Corneas: corneas normal Pupils: Equal, round and reactive pupils present EOM: EOMs intact bilaterally Neck Neck: Yes full ROM Resp Effort & Inspection: normal respiratory effort, able to speak in complete sentences and not labored Cardio Rate: regular rate Rhythm: regular rhythm GI Inspection: No distended Palpation (GI): Soft to palpation, not firm, nontender, no guarding and not rigid Back/Spine/Pelvis Other: there is bilateral cervical, thoracic and lumbar vague paraspinous muscle tenderness. No step-offs or deformity to the cervical, thoracic or lumbar spine. Skin General skin exam: elasticity normal Neuro General: patient oriented x3 Cranial nerves: Yes Equal, round and reactive pupils present and Yes Bilaterally intact EOM present Cognition (Neuro): normal cognition Extrem Other: Moving all extremities well without any obvious deformities Course Course Course Narrative: This is a Rapid Medical Examination (RME) performed by Esther Tristan PA-C in triage. Full HPI, ROS, assessment and treatment plan per primary provider in the Main ED. Hx: 55 yo F here w/ neck pain radiating to back since last night. did not trial any OTC pain meds STRANNER. Plan: labs, ekg Medications Administered Discontinued Medications Generic Name Dose Route Start Last Admin Trade Name Freq PRN Reason Stop Dose Admin Ketorolac Tromethamine 30 mg 06/29/25 23:04 06/29/25 23:17 Ketorolac Tromethamine 30 Mg/Ml Vial IM 06/29/25 23:05 30 mg ONCE ONE Administration Medical Decision Making Medical Decision Making [facility] Narrative: 55-year-old female presents for evaluation of neck and back pain over last 2 days. She has no fevers, chills, respiratory symptoms, she does complain of some vague weakness and body aches but is afebrile. she has no leukocytosis, no meningeal signs, less likely infectious cause of her neck and back pain. Additionally, there was no history of IV drug abuse. The patient's pain is reproducible on exam and most likely musculoskeletal in origin. There was no trauma to warrant any emergent imaging at this time. We will discharge the patient with NSAIDs and cyclobenzaprine Differential Diagnosis Differential Diagnoses: The differential diagnosis associated with the presentation includes muscle strain Contusion Radiculopathy Cervical strain Lab Data [facility] Lab Attestation statement: I reviewed the patient's lab results. no leukocytosis or anemia. Normal platelet count. No electrolyte abnormalities warranting intervention. 06/29/25 19:38 06/29/25 19:38 Labs: Lab Results 06/29/25 Range/Units 19:38 WBC 8.0 (4.8-10.8) X10*3/uL RBC 4.26 (4.20-5.50) X10*6/uL Hgb 12.3 (12.0-16.0) g/dl Hct 37.8 (37.0-47.0) % MCV 88.7 (80.0-98.0) fL MCH 28.9 (27.0-33.0) pg MCHC 32.5 (31.0-35.0) g/dl RDW 13.1 (11.0-16.0) % Plt Count 273 (160-400) X10*3/uL MPV 9.5 (9.4-12.3) fL Immature Gran % (Auto) 0.5 H (0.0-0.4) % Neut % (Auto) 71.3 (45-73) % Lymph % (Auto) 19.4 L (20-40) % [place] % (Auto) 7.8 (2-11) % Eos % (Auto) 0.6 (0-4) % Baso % (Auto) 0.4 (0-2) % Lymph # (Auto) 1.6 (1.2-4.9) X10*3/uL [place] # (Auto) 0.6 (0.1-1.2) X10*3/uL Eos # (Auto) 0.1 (0.0-0.4) X10*3/uL Baso # (Auto) 0.0 (0.0-0.2) X10*3/uL Abs Immat Gran (auto) 0.04 H (0.00-0.03) X10*3/uL Absolute Neuts (auto) 5.7 (2.0-8.3) x10*3/uL Absolute Nucleated RBC 0.000 (0.0-0.012) X10*3/uL Nucleated RBC % (auto) 0.0 (0.0-0.2) /100WBC Sodium 140 (135-145) mmol/L Potassium 4.3 (3.3-5.1) mmol/L Chloride 104 (96-108) mmol/L Carbon Dioxide 28 (22-29) mmol/L Anion Gap 12 (12-20) BUN 14 (9-16) mg/dL Creatinine 0.86 (0.5-1.4) mg/dL Estim Creat Clear Calc 134.0 Estimated GFR > 60 Random Glucose 120 H (60-115) mg/dL Calcium 9.1 (8.4-10.2) mg/dL Magnesium 2.0 (1.6-2.6) mg/dL Total Bilirubin 0.4 (0.0-1.0) mg/dL AST 28 (5-31) U/L ALT 27 (0-31) U/L Alkaline Phosphatase 139 H (39-117) U/L Troponin I High Sens 2.7 (<3.5-17.0) ng/L Total Protein 7.5 (6.5-8.0) g/dL Albumin 4.4 (3.5-5.0) g/dL Tests considered The following testing was considered but not selected: Consider x-ray imaging of the cervical, thoracic, lumbar spine but given the lack of trauma felt this was not indicated. Discharge Plan Discharge Clinical Impression: Cervical strain Patient Disposition: Home, Self-Care Instructions: Cervical Strain (ED) Additional Instructions: your workup in the ER was reassuring. Use ibuprofen as needed for pain. Use cyclobenzaprine as needed for muscle spasms. This may make you drowsy, do not drink alcohol or drive after taking it follow-up with your primary doctor, return for new or worsening symptoms Prescriptions: New cyclobenzaprine 10 mg tablet 10 mg PO TID PRN (Reason: muscle spasm) Qty: 20 0RF ibuprofen 600 mg tablet 600 mg PO Q6H PRN (Reason: pain) Qty: 20 0RF No Action thiamine HCl (vitamin B1) 100 mg tablet 100 mg PO DAILY 90 Days Qty: 90 1RF (DME) Shower Chair Misc See Rx Instructions .Route Qty: 1 0RF Rx Instructions: As directed senna 8.6 mg capsule 8.6 mg PO BEDTIME PRN (Reason: constipation) Qty: 30 0RF (DME) hypoallergenic sanitary wipes See Rx Instructions .Route .MEDSUPPLY Qty: 1 1RF Rx Instructions: As directed (DME) Depends sanitary pads See Rx Instructions .Route .MEDSUPPLY Qty: 200 11RF Rx Instructions: As directed (DME) wipes See Rx Instructions .Route .MEDSUPPLY Qty: 2 11RF Rx Instructions: As directed (DME) Bed pads See Rx Instructions .Route .MEDSUPPLY Qty: 100 11RF Rx Instructions: As directed methocarbamol 500 mg tablet 500 mg PO TID PRN (Reason: muscle spasm) Qty: 90 1RF Rx Instructions: No driving while taking this medication. Do no take with alcohol or other MELTER CASTER Depressants chlorthalidone 25 mg tablet 25 mg PO DAILY Qty: 90 0RF lidocaine [Lidoderm] 5 % adhesive patch,medicated 1 patch topical DAILY MDD remove after 12 hours PRN (Reason: pain) Qty: 30 0RF Rx Instructions: leave on most painful area for up to 12 hrs naproxen 500 mg tablet 500 mg PO BID PRN (Reason: pain) 10 Days Qty: 20 0RF sucralfate [Carafate] 1 gram tablet 1 g PO BID PRN (Reason: acid reflux) Qty: 14 0RF prednisone 20 mg tablet 40 mg PO DAILY Qty: 8 0RF omeprazole 20 mg capsule,delayed release(DR/EC) 20 mg PO DAILY ibuprofen 800 mg tablet 800 mg PO TID cyanocobalamin (vitamin B-12) 1,000 mcg/mL solution IM mecobalamin (vitamin B12) 10,000 mcg recon soln 1,000 mcg subcut .once a week albuterol sulfate [Proventil HFA] 90 mcg/actuation HFA aerosol inhaler 2 puff inhalation Q6H PRN (Reason: shortness of breath or wheezing) Qty: 6.7 0RF cholecalciferol (vitamin D3) [Vitamin D3] 25 mcg (1,000 unit) capsule 50 mcg PO DAILY Qty: 30 3RF fexofenadine 180 mg tablet 180 mg PO DAILY Qty: 30 3RF vitamin A palmitate 3,000 mcg (10,000 unit) tablet 20,000 unit PO DAILY 30 Days Qty: 60 0RF furosemide 40 mg tablet 60 mg PO DAILY Qty: 135 1RF (DME) Kneeling Scooter See Rx Instructions .ROUTE .MEDSUPPLY Qty: 1 0RF Rx Instructions: As directed levothyroxine 25 mcg tablet 25 mcg PO DAILY Qty: 30 4RF Interventions: ED Discharge Assessment Last Done: 06/29/25 23:28 Discharge Date/Time: 06/29/25 23:30 Print Language: Wolof
--- NOTE | 2025-06-29 19:27 | ECG_ITS ---
Test Reason : UPPER BACK PAIN Blood Pressure : */* mmHG Vent. Rate : 85 BPM Atrial Rate : 85 BPM P-R Int : 148 ms QRS Dur : 94 ms QT Int : 360 ms P-R-T Axes : 51 57 49 degrees QTcB Int : 428 ms Normal sinus rhythm Possible Left atrial enlargement Minimal voltage criteria for LVH, may be normal variant ( Sokolow-Limon ) Borderline ECG When compared with ECG of 16-Jun-2025 22:54, No significant change was found Referred By: Nimo Tristan Electronically Signed By: Aron Ceja
[2025-06-29 19:43] LABS: MANUAL DIFF FLAG NO
[2025-06-29 19:44] LABS: Hematocrit 37.8 % (37.0-47.0); Hemoglobin 12.3 g/dl (12.0-16.0); Imm Gran Abs Auto 0.04 X10*3/uL (0.00-0.03); Imm Gran Pct Auto 0.5 % (0.0-0.4); Lymphocytes Absolute Auto 1.6 X10*3/uL (1.2-4.9); Mean Corpuscular HGB Conc 32.5 g/dl (31.0-35.0); Mean Corpuscular Hemoglobin 28.9 pg (27.0-33.0); Mean Corpuscular Volume 88.7 fL (80.0-98.0); NRBC Abs Auto 0.000 X10*3/uL (0.0-0.012); NRBC Pct Auto 0.0 /100WBC (0.0-0.2); Platelet Count 273 X10*3/uL (160-400); Red Blood Count 4.26 X10*6/uL (4.20-5.50); White Blood Count 8.0 X10*3/uL (4.8-10.8)
[2025-06-29 19:59] LABS: Alanine Aminotransferase 27 U/L (0-31); Albumin Level 4.4 g/dL (3.5-5.0); Alkaline Phosphatase 139 U/L (39-117); Anion Gap 12 (12-20); Aspartate Amino Transferase 28 U/L (5-31); Blood Urea Nitrogen 14 mg/dL (9-16); Calcium 9.1 mg/dL (8.4-10.2); Carbon Dioxide 28 mmol/L (22-29); Chloride 104 mmol/L (96-108); Creatinine Clr Calc Pharmacy 134.0; Estimated Glomerular Filt Rate > 60; Magnesium 2.0 mg/dL (1.6-2.6); Potassium 4.3 mmol/L (3.3-5.1); Sodium 140 mmol/L (135-145); Total Protein 7.5 g/dL (6.5-8.0)
[2025-06-29 20:06] LABS: Troponin-I High Sensitivity 2.7 ng/L (<3.5-17.0)
--- OUTSIDE RECORDS SUMMARY | 2025-06-29 20:49 | XMS_ITS | Encounter Summary ---
Author Organization [facility] Address [address] [facility] [address] [place] [address] Phone Care Team Providers Care Assembler Seat Name Role Phone Pardeep Du MD Primary Care Provider Pardeep Du MD Unavailable Delilah Cervantes DO Primary Care Provider [phone] Kirstin Reyes Primary Care Provide r Encounter Details Date Type Department Care Team (Late st Contact Info) Description 05/06/2023 Ancillary Orders [facility] [address] [place] [address] [place] [address] Pardeep Du MD [address] [facility] [place] [place], 2nd [place] [address] francisco [email or web address] Abnormal finding on mammography Social History Tobacco [...] documented as of this encounter Care Teams Assembler Seat Relationship Specialty Start Date End Date Pardeep Du MD [address] [place] [address], 2nd [place] [address] francisco PCP - General Internal Medicine 04/01/19 05/18/24 Delilah Cervantes DO [address] [place] [address] PCP - General Family Medicine 05/19/24 05/02/25 Kirstin Reyes PA [address] [place] [address] [place] [address] PCP - General Physician Manga Artist 05/03/25 Pardeep Du MD [address] [place] [address], 2nd [place] [address] francisco [email or web address] Insurance Assigned Provider 08/08/19 07/06/23 documented as of this encounter Additional Source Comments The information contained in this document represents components of the legal health record. It is not the complete legal health record.[facility]
--- OUTSIDE RECORDS SUMMARY | 2025-06-29 20:49 | XMS_ITS | Encounter Summary ---
Author Organization [facility] Address [address] [facility] [address] [place] [address] Phone Care Team Providers Care Ticket Taker Name Role Phone Pardeep Du MD Primary Care Provider Pardeep Du MD Unavailable Jessie Smith RN Unavailable Delilah Cervantes DO Primary Care Provider Kirstin Reyes Primary Care Provide r Encounter Details Date Type Department Care Team (Late st Contact Info) Description 05/04/2019 Ancillary Orders [facility] [address] [place] [address] [place] [address] Andrew Alberto MD [address] [place] [address] [facility] [place] [address] [email or web address] Pain in both knees, unspecified [...] to medium sized joint effusion. POS - [id number] Narrative 05/04/2019 1:28 PM EDT Left knee [...] to medium sized joint effusion. POS - [id number] Andrew Alberto MD IMG XR LOWER EXTREMITY F inal Result * XR KNEE 4 OR MORE VIEWS (RIGHT) (05/04/2019 1:07 PM EDT) Anatomical Region Laterality Modality Knee Right Radiographic Jesika ging 05/04/2019 1:27 PM EDT Impressions 05/04/2019 1:28 PM EDT Moderate medial compartment osteoarthritis. No erosive changes or bony lesion seen. Prominent joint effusion. POS - [id number] Narrative 05/04/2019 1:28 PM EDT Right knee [...] bonylesion seen. Prominent joint effusion. POS - [id number] Andrew Alberto MD IMG XR LOWER EXTREMITY [...] documented as of this encounter Care Teams Ticket Taker Relationship Specialty Start Date End Date Pardeep Du MD [address] [place] [address], [address] [place] [address] francisco PCP - General Internal Medicine 04/01/19 05/18/24 Delilah Cervantes DO [address] [place] [address] PCP - General Family Medicine 05/19/24 05/02/25 Kirstin Reyes PA [address] [place] [address] PCP - General Physician Instrument Technician Apprentice 05/03/25 Pardeep Du MD [address] [place] [address] francisco Insurance Assigned Provider 08/08/19 07/06/23 Jessie Smith, RN [address] [place] [address] iCMP Testing Consultant 12/12/22 01/24/23 documented as of this encounter Additional Source Comments The information contained in this document represents components of the legal health record. It is not the complete legal health record.[facility]
--- OUTSIDE RECORDS SUMMARY | 2025-06-29 20:49 | XMS_ITS | Encounter Summary ---
Author Organization [facility] Address [address] [facility] [address] [place] [address] Phone Care Team Providers Care Dairy Supplies Sales Representative Name Role Phone Paredep Du MD Primary Care Provider [phone] Pardeep Du MD Unavailable [phone] Jessie Smith RN Unavailable [phone] Delilah Cervantes DO Primary Care Provider [phone] Kirstin Reyes Primary Care Provide r Encounter Details Date Type Department Care Team (Late st Contact Info) Description 04/06/2022 Procedure Pass [facility] Endoscopy Admitting Dept Virtual Department 30 [place], [place] [id number] Social History Tobacco Use Types Packs/Day Years [...] documented as of this encounter Care Teams Dairy Supplies Sales Representative Relationship Specialty Start Date End Date Pardeep Du MD [address] [place] [address], 2nd [place] [address] francisco PCP - General Internal Medicine 04/01/19 05/18/24 Delilah Cervantes DO [address] [place] [address] PCP - General Family Medicine 05/19/24 05/02/25 Kirstin Reyes PA [address] [place] [address] [place] [address] PCP - General Physician Speech Communication Professor 05/03/25 Pardeep Du MD [address] [place] [address], 2nd [place] [address] francisco [email or web address] Insurance Assigned Provider 08/08/19 07/06/23 Jessie Smith, RN [address] [place] [address] [email or web address] iCMP Wrapper Hands Sprayer 12/12/22 01/24/23 documented as of this encounter Additional Source Comments The information contained in this document represents components of the legal health record. It is not the complete legal health record.[facility]
--- OUTSIDE RECORDS SUMMARY | 2025-06-29 20:49 | XMS_ITS | Encounter Summary ---
Author Organization [facility] Address [address] [facility] [address] [place] [address] Phone Care Team Providers Care Fabric Machine Operator Name Role Phone Pardeep Du MD Primary Care Provider Pardeep Du MD Unavailable [phone] Jessie Smith RN Unavailable [phone] Delilah Cervantes DO Primary Care Provider [phone] Kirstin Reyes Primary Care Provide r Encounter Details Date Type Department Care Team (Late st Contact Info) Description 03/23/2021 Procedure Pass [facility], [address] [place] [address] Social History Tobacco Use Types Packs/Day Years [...] documented as of this encounter Care Teams Fabric Machine Operator Relationship Specialty Start Date End Date Pardeep Du MD [address] [place] [address], 2nd [place] [address] francisco PCP - General Internal Medicine 04/01/19 05/18/24 Delilah Cervantes DO [address] [place] [address] PCP - General Family Medicine 05/19/24 05/02/25 Kirstin Reyes PA [address] [place] [address] [place] [address] PCP - General Physician Jig Filler 05/03/25 Pardeep Du MD [address] [place] [address], 2nd [place] [address] francisco [email or web address] Insurance Assigned Provider 08/08/19 07/06/23 Jessie Smith, RN 10 [place] [address] [email or web address] iCMP Floating Operator 12/12/22 01/24/23 documented as of this encounter Additional Source Comments The information contained in this document represents components of the legal health record. It is not the complete legal health record.[facility]
--- OUTSIDE RECORDS SUMMARY | 2025-06-29 20:49 | XMS_ITS | Encounter Summary ---
Author Organization [facility] Address [address] [facility] [address] [place] [address] Phone Care Team Providers Care Pipe Cleaning Machine Operator Name Role Phone Pardeep Du MD Primary Care Provider Delilah Cervantes DO Primary Care Provider Kirstin Reyes Primary Care Provide r Encounter Details Date Type Department Care Team (Late st Contact Info) Description 11/29/2023 Procedure Pass [facility], [address] [address] Social History Tobacco Use Types Packs/Day Years [...] documented as of this encounter Care Teams Pipe Cleaning Machine Operator Relationship Specialty Start Date End Date Pardeep Du MD [address] [place] [address], 2nd [place] [address] francisco PCP - General Internal Medicine 04/01/19 05/18/24 Delilah Cervantes DO [address] [place] [address] PCP - General Family Medicine 05/19/24 05/02/25 Kirstin Reyes PA [address] [place] [address] [place] [address] PCP - General Physician Art History Professor 05/03/25 documented as of this encounter Additional Source Comments The information contained in this document represents components of the legal health record. It is not the complete legal health record.[facility]
--- OUTSIDE RECORDS SUMMARY | 2025-06-29 20:49 | XMS_ITS | Encounter Summary ---
Author Organization [facility] Address [address] [facility] [address] [place] [address] Phone Care Team Providers Care Kitchen Aide Name Role Phone Pardeep Du MD Primary Care Provider [phone] Pardeep Du MD Unavailable [phone] Jessie Smith RN Unavailable [phone] Delilah Cervantes DO Primary Care Provider Kirstin Reyes Primary Care Provide r Encounter Details Date Type Department Care Team (Late st Contact Info) Description 05/10/2020 Procedure Pass [facility], [address] [place] [address] Social History Tobacco Use Types Packs/Day Years [...] education for yourself related to: Learning the [place] language? Completing high school, earning a high [...] 1:23 AM EST CoV-Risk 06/28/2023 06/28/2023 07/09/2023 1:2 2 AM EDT Assessment Noted Time PHQ-2 Depression Total Score: 0 06/30/20 19 9:06 AM EDT documented as of this encounter Care Teams Kitchen Aide Relationship Specialty Start Date End Date Pardeep Du MD [address] [place] [address], [address] [place] [address] francisco PCP - General Internal Medicine 04/01/19 05/18/24 Delilah Cervantes DO [address] [place] [address] PCP - General Family Medicine 05/19/24 05/02/25 Kirstin Reyes PA [address] [place] [address] [place] [address] PCP - General Physician Wireless Architect 05/03/25 Pardeep Du MD [address] [place] [address], [address] [place] [address] francisco [email or web address] Insurance Assigned Provider 08/08/19 07/06/23 Jessie Smith, RN [address] [place] [address] iCMP Dietetic Tech 12/12/22 01/24/23 documented as of this encounter Additional Source Comments The information contained in this document represents components of the legal health record. It is not the complete legal health record.[facility]
--- OUTSIDE RECORDS SUMMARY | 2025-06-29 20:49 | XMS_ITS | Encounter Summary ---
Author Organization [facility] Address [address] [facility] [address] [place] [address] Phone Care Team Providers Care Fan Installer Name Role Phone Pardeep Du MD Primary Care Provider [phone] Pardeep Du MD Unavailable [phone] Jessie Smith RN Unavailable [phone] Delilah Cervantes DO Primary Care Provider Kirstin Reyes Primary Care Provide r Encounter Details Date Type Department Care Team (Late st Contact Info) Description 06/02/2019 Procedure Pass [facility], [address] [place] [address] Social History Tobacco Use Types Packs/Day Years [...] yourself related to: Learning the [place] language? Completing high school, earning a high [...] documented as of this encounter Care Teams Fan Installer Relationship Specialty Start Date End Date Pardeep Du MD [address] [place] [address], 2nd [place] [address] francisco PCP - General Internal Medicine 04/01/19 05/18/24 Delilah Cervantes DO [address] [place] [address] PCP - General Family Medicine 05/19/24 05/02/25 Kirstin Reyes PA [address] [place] [address] [place] [address] PCP - General Physician Nursing Clerk 05/03/25 Pardeep Du MD [address] [place] [address], 2nd [place] [address] francisco [email or web address] Insurance Assigned Provider 08/08/19 07/06/23 Jessie Smith, RN [address] [place] [phone] [email or web address] iCMP Development Professional 12/12/22 01/24/23 documented as of this encounter Additional Source Comments The information contained in this document represents components of the legal health record. It is not the complete legal health record.[facility]
--- OUTSIDE RECORDS SUMMARY | 2025-06-29 20:49 | XMS_ITS | Encounter Summary ---
Author Organization [facility] Address [address] [facility] [address] [place] [address] Phone Care Team Providers Care Sephora Operations Consultant Name Role Phone Pardeep Du MD Primary Care Provider Pardeep Du MD Unavailable [phone] Jessie Smith RN Unavailable [phone] Delilah Cervantes DO Primary Care Provider Kirstin Reyes Primary Care Provide r Encounter Details Date Type Department Care Team (Late st Contact Info) Description 12/09/2022 Procedure Pass [facility] 30 [place] [address] Social History Tobacco Use Types Packs/Day Years [...] education for yourself related to: Learning the [place] language? Completing high school, earning a high [...] documented as of this encounter Care Teams Sephora Operations Consultant Relationship Specialty Start Date End Date Pardeep Du MD [address] [place] [address], 2nd [place] [address] francisco PCP - General Internal Medicine 04/01/19 05/18/24 Delilah Cervantes DO [address] [place] [address] PCP - General Family Medicine 05/19/24 05/02/25 Kirstin Reyes PA [address] [place] [address] [place] [address] PCP - General Physician Heating Operators Engineer 05/03/25 Pardeep Du MD [address] [place] [address], 2nd [place] [address] francisco [email or web address] Insurance Assigned Provider 08/08/19 07/06/23 Jessie Smith, RN [address] [place] [address] [email or web address] iCMP Fingerprint Technician 12/12/22 01/24/23 documented as of this encounter Additional Source Comments The information contained in this document represents components of the legal health record. It is not the complete legal health record.[facility]
--- OUTSIDE RECORDS SUMMARY | 2025-06-29 20:49 | XMS_ITS | Encounter Summary ---
Author Organization [facility] Address [address] [facility] [address] [place] [address] Phone Care Team Providers Care Hospital Mortician Name Role Phone Pardeep Du MD Primary Care Provider Pardeep Du MD Unavailable Jessie Smith RN Unavailable Delilah Cervantes DO Primary Care Provider Kirstin Reyes Primary Care Provide r Encounter Details Date Type Department Care Team (Late st Contact Info) Description 07/23/2019 Ancillary Orders Non-Invasive Cardiology 30 [place] [address] Pardeep Du MD [address] [facility], 2nd [place] [address] francisco [email or web address] Chest pain, unspecified type Social History Tobacco [...] AM EDT) Max BP Systolic 130 mmHg [facility] Max BP Diastolic 70 mmHg [facility] Max HR 88 BPM [facility] Resting HR 57 BPM [facility] Resting BP Systolic 126 mmHg [facility] Resting BP Diastolic 78 mmHg [facility] Peak METS 1.0 METS [facility] Peak HR 87 BPM [facility] Anatomical Region Laterality Modality Heart Other 07/23/2019 [...] injection of the Tc99m Sestamibi by the nuclear officer. Patient tolerated infusion without complications. Test terminated [...] documented as of this encounter Care Teams Hospital Mortician Relationship Specialty Start Date End Date Pardeep Du MD [address] [place] [address], 2nd [place] [address] francisco [email or web address] PCP - General Internal Medicine 04/01/19 05/18/24 Delilah Cervantes DO [address] [place] [address] PCP - General Family Medicine 05/19/24 05/02/25 Kirstin Reyes PA [address] [place] [address] PCP - General Physician C Web Developer 05/03/25 Pardeep Du MD [address] [place] [address], 2nd [place] [address] francisco [email or web address] Insurance Assigned Provider 08/08/19 07/06/23 Jessei Smith, RN [address] [place] [phone] [email or web address] iCMP Product Safety Administrator 12/12/22 01/24/23 documented as of this encounter Additional Source Comments The information contained in this document represents components of the legal health record. It is not the complete legal health record.[facility]
--- OUTSIDE RECORDS SUMMARY | 2025-06-29 20:49 | XMS_ITS | Encounter Summary ---
Author Organization [facility] Address [address] [facility] [address] [place] [address] Phone Care Team Providers Care University Relations Vice President Name Role Phone Pardeep Du MD Primary Care Provider [phone] Pardeep Du MD Unavailable [phone] Jessie Smith RN Unavailable [phone] Delilah Cervantes DO Primary Care Provider Kirstin Reyes Primary Care Provide r Encounter Details Date Type Department Care Team (Late st Contact Info) Description 09/16/2019 Ancillary Orders [facility],Outside Imaging 30 [place], [place] [id number] System, Provider Not In, [facility] [address] [address] Social History Tobacco Use Types Packs/Day Years [...] education for yourself related to: Learning the Maur[place] language? Completing high school, earning a high [...] documented as of this encounter Care Teams University Relations Vice President Relationship Specialty Start Date End Date Pardeep Du MD [address] [place] [address], [address] [place] [address] francisco PCP - General Internal Medicine 04/01/19 05/18/24 Delilah Cervantes DO [address] [place] [address] PCP - General Family Medicine 05/19/24 05/02/25 Kirstin Reyes PA [address] [place] [address] [place] [address] PCP - General Physician Medical Staff Services Manager 05/03/25 Pardeep Du MD [address] [place] [address] francisco Insurance Assigned Provider 08/08/19 07/06/23 Jessie Smith, RN [address] [place] [address] iCMP Student Liaison Officer 12/12/22 01/24/23 documented as of this encounter Additional Source Comments The information contained in this document represents components of the legal health record. It is not the complete legal health record.[facility]
--- OUTSIDE RECORDS SUMMARY | 2025-06-29 20:49 | XMS_ITS | Encounter Summary ---
Author Organization [facility] Address [address] [facility] [address] [place] [address] Phone Care Team Providers Care Longwall Headgate Operator Name Role Phone Pardeep Du MD Primary Care Provider Pardeep Du MD Unavailable Jessie Smith RN Unavailable [phone] Delilah Cervantes DO Primary Care Provider Kirstin Reyes Primary Care Provide r Encounter Details Date Type Department Care Team (Late st Contact Info) Description 09/13/2021 Transcribe Orders Virtual Department 30 [place] [address] Pardeep Du MD [address] [facility], 2nd [place] [address] francisco Social History Tobacco Use Types Packs/Day [...] education for yourself related to: Learning the [place]ian language? Completing high school, earning a high [...] documented as of this encounter Care Teams Longwall Headgate Operator Relationship Specialty Start Date End Date Pardeep Du MD [address] [place] [address], 2nd [place] [address] francisco PCP - General Internal Medicine 04/01/19 05/18/24 Delilah Cervantes DO [address] [place] [address] PCP - General Family Medicine 05/19/24 05/02/25 Kirstin Reyes PA [address] [place] [address] PCP - General Physician Training And Development Head 05/03/25 Pardeep Du MD [address] [place] [address], 2nd [place] [address] francisco Insurance Assigned Provider 08/08/19 07/06/23 Jessie Smith, RN [address] [place] [address] [email or web address] iCMP Special Events Fundraiser 12/12/22 01/24/23 documented as of this encounter Additional Source Comments The information contained in this document represents components of the legal health record. It is not the complete legal health record.[facility]
--- OUTSIDE RECORDS SUMMARY | 2025-06-29 20:49 | XMS_ITS | Encounter Summary ---
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 Derangement of anterior horn of lateral [...] education for yourself related to: Learning the [place] language? Completing high school, earning a high [...] documented as of this encounter Care Teams Educational Interpreter Relationship Specialty Start Date End Date Pardeep Du MD [address] [place] [address], [address] [place] [address] francisco PCP - General Internal Medicine 04/01/19 05/18/24 Delilah Cervantes DO [address] [place] [address] PCP - General Family Medicine 05/19/24 05/02/25 Kirstin Reyes PA [address] [place] [address] [place] [address] PCP - General Physician Rotogravure Press Operator 05/03/25 Pardeep Du MD [address] [place] [address], [address] [place] [address] francisco Insurance Assigned Provider 08/08/19 07/06/23 Jessie Smith, MEGHAN [address] [place] [address] [email or web address] iCMP Last Greaser 12/12/22 01/24/23 documented as of this encounter Additional Source Comments The information contained in this document represents components of the legal health record. It is not the complete legal health record.[facility]
--- OUTSIDE RECORDS SUMMARY | 2025-06-29 20:49 | XMS_ITS | Encounter Summary ---
Author Organization [facility] Address [address] [place] [address] Phone Care Team Providers Care Sourcing Intern Name Role Phone Pardeep Du MD Primary Care Provider [phone] Pardeep Du MD Unavailable [phone] Jessie Smith RN Unavailable [phone] Delilah Cervantes DO Primary Care Provider Kirstin Reyes Primary Care Provide r Encounter Details Date Type Department Care Team (Late st Contact Info) Description 06/30/2019 Procedure Pass [facility], [address] [place] [address] Social History Tobacco Use Types Packs/Day Years [...] education for yourself related to: Learning the Kenyan language? Completing high school, earning a high [...] documented as of this encounter Care Teams Sourcing Intern Relationship Specialty Start Date End Date Pardeep Du MD [address] [place] [address], 2nd [place] [address] PCP - General Internal Medicine 04/01/19 05/18/24 Delilah Cervantes DO [address] [place] [address] PCP - General Family Medicine 05/19/24 05/02/25 Kirstin Reyes PA [address] [place] [address] [place] [address] PCP - General Physician Park Interpreter 05/03/25 Pardeep Du MD [address] [place] [address], 2nd [place] [address] francisco [email or web address] Insurance Assigned Provider 08/08/19 07/06/23 Jessie Smith, RN [address] [place] [address] [email or web address] iCMP Vice President Supply Chain 12/12/22 01/24/23 documented as of this encounter Additional Source Comments The information contained in this document represents components of the legal health record. It is not the complete legal health record.[facility]
--- OUTSIDE RECORDS SUMMARY | 2025-06-29 20:49 | XMS_ITS | Encounter Summary ---
Author Organization [facility] Address [address] [place] [address] Phone Care Team Providers Care Psychotherapist Social Worker Name Role Phone Pardeep Du MD Primary Care Provider [phone] Delilah Cervantes DO Primary Care Provider Kirstin Reyes Primary Care Provide r Encounter Details Date Type Department Care Team (Late st Contact Info) Description 04/06/2024 Procedure Pass [facility], Ct Scan - [address] [id number] Social History Tobacco Use Types Packs/Day Years [...] documented as of this encounter Care Teams Psychotherapist Social Worker Relationship Specialty Start Date End Date Pardeep Du MD [address] [place] [address], 2nd [place] [address] francisco [email or web address] PCP - General Internal Medicine 04/01/19 05/18/24 Delilah Cervantes DO [address] [place] [address] PCP - General Family Medicine 05/19/24 05/02/25 Kirstin Reyes PA [address] [place] [address] [place] [address] PCP - General Physician Vinyl Hanger 05/03/25 documented as of this encounter Additional Source Comments The information contained in this document represents components of the legal health record. It is not the complete legal health record.[facility]
--- OUTSIDE RECORDS SUMMARY | 2025-06-29 20:49 | XMS_ITS | Encounter Summary ---
Author Organization [facility] Address [address] [place] [address] Phone Care Team Providers Care Grain Thresher Name Role Phone Pardeep Du MD Primary Care Provider [phone] Pardeep Du MD Unavailable [phone] Jessie Smith RN Unavailable [phone] Delilah Cervantes DO Primary Care Provider [phone] Kirstin Reyes Primary Care Provide r Encounter Details Date Type Department Care Team (Late st Contact Info) Description 09/16/2019 Ancillary Orders [facility],Outside Imaging 30 [place], [place] [id number] System, Provider Not In, [facility] [address] [address] Social History Tobacco Use Types Packs/Day Years [...] documented as of this encounter Care Teams Grain Thresher Relationship Specialty Start Date End Date Pardeep Du MD [address] [place] [address], [address] [place] [address] francisco PCP - General Internal Medicine 04/01/19 05/18/24 Delilah Cervantes DO [address] [place] [address] PCP - General Family Medicine 05/19/24 05/02/25 Kirstin Reyes PA [address] [place] [address] [place] [address] PCP - General Physician Thread Winder 05/03/25 Pardeep Du MD [address] [place] [address] francisco Insurance Assigned Provider 08/08/19 07/06/23 Jessie Smith, RN [address] [place] [address] iCMP Orthotic/Prosthetic Practitioner 12/12/22 01/24/23 documented as of this encounter Additional Source Comments The information contained in this document represents components of the legal health record. It is not the complete legal health record.[facility]
--- OUTSIDE RECORDS SUMMARY | 2025-06-29 20:49 | XMS_ITS | Encounter Summary ---
Author Organization [facility] Address [address] [facility] [address] [place] [address] Phone Care Team Providers Care Safety And Health Consultant Name Role Phone Pardeep Du MD Primary Care Provider [phone] Pardeep Du MD Unavailable [phone] Jessie Smith RN Unavailable [phone] Delilah Cervantes DO Primary Care Provider Kirstin Reyes Primary Care Provide r Encounter Details Date Type Department Care Team (Late st Contact Info) Description 12/17/2022 Procedure Pass [facility], [address] [place] [address] Social History Tobacco Use Types Packs/Day Years [...] documented as of this encounter Care Teams Safety And Health Consultant Relationship Specialty Start Date End Date Pardeep Du MD [address] [place] [address], 2nd [place] [address] francisco PCP - General Internal Medicine 04/01/19 05/18/24 Delilah Cervantes DO [address] [place] [address] PCP - General Family Medicine 05/19/24 05/02/25 Kirstin Reyes PA [address] [place] [address] [place] [address] PCP - General Physician Furnace Maintenance 05/03/25 Pardeep Du MD [address] [place] [address], 2nd [place] [address] francisco [email or web address] Insurance Assigned Provider 08/08/19 07/06/23 Jessie Smith, RN [address] [place] [address] [email or web address] iCMP Spooler Rubber Strand 12/12/22 01/24/23 documented as of this encounter Additional Source Comments The information contained in this document represents components of the legal health record. It is not the complete legal health record.[facility]
--- OUTSIDE RECORDS SUMMARY | 2025-06-29 20:49 | XMS_ITS | Clinical Summary ---
Author Organization [employer] Address [address] 7t [place] [address] Care Team Providers Care Telephone Installer Name Role Phone Unavailable Primary Care Provider [...] of 2) 2022 COVID-19 Vaccine (3 - 2024- season) 2025 02/17/2021, 01/26/2021 Influenza Vaccine (#1) 2025 3, [...] patient's age to complete this topic Insurance [facility] C3
--- OUTSIDE RECORDS SUMMARY | 2025-06-29 20:49 | XMS_ITS | Encounter Summary ---
Author Organization [facility] Address [address] [place] [address] Phone Care Team Providers Care Newspaper Stuffer Name Role Phone Pardeep Du MD Primary Care Provider [phone]- [phone] Pardeep Du MD Unavailable [phone] Jessie Smith RN Unavailable [phone] Delilah Cervantes DO Primary Care Provider Kirstin Reyes Primary Care Provide r Encounter Details Date Type Department Care Team (Late st Contact Info) Description 09/16/2019 Ancillary Orders [facility],Outside Imaging 30 [place], [place] [phone] System, Provider Not In, [facility] [address] [address] Social History Tobacco Use Types Packs/Day Years [...] education for yourself related to: Learning the Nigerien language? Completing high school, earning a high [...] documented as of this encounter Care Teams Newspaper Stuffer Relationship Specialty Start Date End Date Pardeep Du MD [address] [place] [address], [address] [place] [address] francisco PCP - General Internal Medicine 04/01/19 05/18/24 Delilah Cervantes DO [address] [place] [address] PCP - General Family Medicine 05/19/24 05/02/25 Kirstin Reyes PA [address] [place] [address] [place] [address] PCP - General Physician Pumping Supervisor 05/03/25 Pardeep Du MD [address] [place] [address] francisco Insurance Assigned Provider 08/08/19 07/06/23 Jessie Smith, RN [address] [place] [address] iCMP Manager Office Services 12/12/22 01/24/23 documented as of this encounter Additional Source Comments The information contained in this document represents components of the legal health record. It is not the complete legal health record.[facility]
--- OUTSIDE RECORDS SUMMARY | 2025-06-29 20:49 | XMS_ITS | Encounter Summary ---
Author Organization [facility] Address [address] [facility] [address] [address] [place] [address] Phone Care Team Providers Care Terry Cloth Cutter Hand Name Role Phone Pardeep Du MD Primary Care Provider [phone] Pardeep Du MD Unavailable [phone] Jessie Smith RN Unavailable [phone] Delilah Cervantes DO Primary Care Provider Kirstin Reyes Primary Care Provide r Encounter Details Date Type Department Care Team (Late st Contact Info) Description 09/16/2019 Ancillary Orders [facility],Outside Imaging 30 [place], [place] [phone] System, Provider Not In, [facility] [address] [address] Social History Tobacco Use Types Packs/Day Years [...] education for yourself related to: Learning the Belgian language? Completing high school, earning a high [...] documented as of this encounter Care Teams Terry Cloth Cutter Hand Relationship Specialty Start Date End Date Pardeep Du MD [address] [place] [address], [address] [place] [address] francisco PCP - General Internal Medicine 04/01/19 05/18/24 Delilah Cervantes DO [address] [place] [address] PCP - General Family Medicine 05/19/24 05/02/25 Kirstin Reyes PA [address] [place] [address] [place] [address] PCP - General Physician Die Assembler 05/03/25 Pardeep Du MD [address] [place] [address] francisco Insurance Assigned Provider 08/08/19 07/06/23 Jessie Smith, RN [address] [place] [address] iCMP Manager Transition 12/12/22 01/24/23 documented as of this encounter Additional Source Comments The information contained in this document represents components of the legal health record. It is not the complete legal health record.[facility]
--- OUTSIDE RECORDS SUMMARY | 2025-06-29 20:49 | XMS_ITS | Encounter Summary ---
Author Organization [facility] Address [address] [facility] [address] [place] [address] Phone Care Team Providers Care Hand Lacer Name Role Phone Pardeep Du MD Primary Care Provider [phone] Pardeep Du MD Unavailable [phone] Jessie Smith RN Unavailable [phone] Delilah Cervantes DO Primary Care Provider Kirstin Reyes Primary Care Provide r Encounter Details Date Type Department Care Team (Late st Contact Info) Description 06/20/2022 Procedure Pass [place] Admitting Dept - Virtual Department 30 [place] [address] Social History Tobacco Use Types Packs/Day Years [...] documented as of this encounter Care Teams Hand Lacer Relationship Specialty Start Date End Date Pardeep Du MD [address] [place] [address], 2nd [place] [address] francisco PCP - General Internal Medicine 04/01/19 05/18/24 Delilah Cervantes DO [address] [place] [address] PCP - General Family Medicine 05/19/24 05/02/25 Kirstin Reyes PA [address] [place] [address] [place] [address] PCP - General Physician Field Sales Trainer 05/03/25 Pardeep Du MD [address] [place] [address], 2nd [place] [address] francisco [email or web address] Insurance Assigned Provider 08/08/19 07/06/23 Jessie Smith, RN [address] [place] [address] [email or web address] iCMP Director Of Convention Services 12/12/22 01/24/23 documented as of this encounter Additional Source Comments The information contained in this document represents components of the legal health record. It is not the complete legal health record.[facility]
--- OUTSIDE RECORDS SUMMARY | 2025-06-29 20:49 | XMS_ITS | Encounter Summary ---
Author Organization [facility] Address [address] [facility] [address] [place] [address] Phone Care Team Providers Care Kiosk Sales Representative Name Role Phone Helen Delilah Primary Care Provider [phone] Kirstin Reyes Primary Care Provide r Encounter Details Date Type Department Care Team (Latest Contact Info) Description 08/06/2024 Transcribe Orders Virtual Department 30 [place] [address] Gilda Carranza PA-C [address] [place] [address] [email or web address] Lesion of ovary (Primary Dx) Social History [...] documented as of this encounter Care Teams Kiosk Sales Representative Relationship Specialty Start Date End Date Delilah Cervantes DO [address] [place] [address] [place] [id number] PCP - General Family Medicine 05/19/24 05/02/25 Kirstin Reyes PA [address] [place] [address] [place] [address] PCP - General Physician Operator Cavity Pump 05/03/25 documented as of this encounter Additional Source Comments The information contained in this document represents components of the legal health record. It is not the complete legal health record.[facility]
--- OUTSIDE RECORDS SUMMARY | 2025-06-29 20:49 | XMS_ITS | Encounter Summary ---
Author Organization [facility] Address [address] [place] [address] Phone Care Team Providers Care Android Architect Name Role Phone Pardeep Du MD Primary Care Provider [phone] Pardeep Du MD Unavailable [phone] Jessie Smith RN Unavailable [phone] Delilah Cervantes DO Primary Care Provider [phone] Kirstin Reyes Primary Care Provide r Encounter Details Date Type Department Care Team (Late st Contact Info) Description 10/18/2020 Procedure Pass [facility] - [address] [place] [address] Social History Tobacco Use Types Packs/Day Years [...] education for yourself related to: Learning the Somali language? Completing high school, earning a high [...] documented as of this encounter Care Teams Android Architect Relationship Specialty Start Date End Date Pardeep Du MD [address] [place] [address], 2nd [place] [address] francisco PCP - General Internal Medicine 04/01/19 05/18/24 Delilah Cervantes DO [address] [place] [address] PCP - General Family Medicine 05/19/24 05/02/25 Kirsitn Reyes PA [address] [place] [address] [place] [address] PCP - General Physician Generator Mechanic 05/03/25 Pardeep Du MD [address] [place] [address], 2nd [place] [address] francisco [email or web address] Insurance Assigned Provider 08/08/19 07/06/23 Jessie Smith, RN [address] [place] [address] [email or web address] iCMP Rough And Truing Machine Operator 12/12/22 01/24/23 documented as of this encounter Additional Source Comments The information contained in this document represents components of the legal health record. It is not the complete legal health record.[facility]
--- OUTSIDE RECORDS SUMMARY | 2025-06-29 20:49 | XMS_ITS | Encounter Summary ---
Author Organization [facility] Address [address] [facility] [address] [facility] [address] [place] [address] Phone Care Team Providers Care Forestry Support Specialist Name Role Phone Pardeep Du MD Primary Care Provider Pardeep Du MD Unavailable [phone] Jessie Smith RN Unavailable Delilah Cervantes DO Primary Care Provider Kirstin Reyes Primary Care Provide r Encounter Details Date Type Department Care Team (Late st Contact Info) Description 03/05/2022 Procedure Pass [facility], Ct Scan - [address] [address] Social History Tobacco Use Types Packs/Day Years [...] education for yourself related to: Learning the Jordanian language? Completing high school, earning a high [...] 1:02 PM EDT Drake Cha, MEGHAN * Summers Suicide Severity Rating Scale (Screener/Recent Self-Report) Question [...] as of this encounter Care Teams Forestry Support Specialist Relationship Specialty Start Date End Date Pardeep Du MD [address] [place] [address], [address] [place] [address] francisco PCP - General Internal Medicine 04/01/19 05/18/24 Delilah Cervantes DO [address] [place] [address] PCP - General Family Medicine 05/19/24 05/02/25 Kirstin Reyes PA [address] [place] [address] PCP - General Physician Wood Heel Attacher 05/03/25 Pardeep Du MD [address] [place] [address], [address] [place] [address] francisco [email or web address] Insurance Assigned Provider 08/08/19 07/06/23 Jessie Smith, RN [address] [place] [address] [email or web address] iCMP Seam Checker 12/12/22 01/24/23 documented as of this encounter Additional Source Comments The information contained in this document represents components of the legal health record. It is not the complete legal health record.[facility]
--- OUTSIDE RECORDS SUMMARY | 2025-06-29 20:49 | XMS_ITS | Encounter Summary ---
Author Organization [facility] Address [address] [place] [address] Phone Care Team Providers Care Orchard Manager Name Role Phone Pardeep Du MD Primary Care Provider [phone] Pardeep Du MD Unavailable [phone] Jessie Smith RN Unavailable [phone] Delilah Cervantes DO Primary Care Provider Kirstin Reyes Primary Care Provide r Encounter Details Date Type Department Care Team (Late st Contact Info) Description 10/04/2021 Procedure Pass [facility] [address] [place] [address] Social History Tobacco Use Types Packs/Day Years [...] education for yourself related to: Learning the Panamanian language? Completing high school, earning a high [...] documented as of this encounter Care Teams Orchard Manager Relationship Specialty Start Date End Date Pardeep Du MD [address] [place] [address], 2nd [place] [address] francisco PCP - General Internal Medicine 04/01/19 05/18/24 Delilah Cervantes DO [address] [place] [address] PCP - General Family Medicine 05/19/24 05/02/25 Kirstin Reyes PA [address] [place] [address] [place] [address] PCP - General Physician Sales Account Director 05/03/25 Pardeep Du MD [address] [place] [address], 2nd [place] [address] francisco [email or web address] Insurance Assigned Provider 08/08/19 07/06/23 Jessie Smith, RN [address] [place] [address] [email or web address] iCMP Tax Director 12/12/22 01/24/23 documented as of this encounter Additional Source Comments The information contained in this document represents components of the legal health record. It is not the complete legal health record.[facility]
--- OUTSIDE RECORDS SUMMARY | 2025-06-29 20:49 | XMS_ITS | Clinical Summary ---
Author Organization [facility] Address [address] [facility] [address] [place] [address] Phone Care Team Providers Care Concrete Tile Machine Operator Name Role Phone Kisrtin Reyes Primary Care Provide r Allergies Active [...] would like to switch her doctors to [facility]. Referral placed. Assessment & Plan (12/30/2023 [...] 4:55 PM EST): This is a 52-year-old Eritrean-speaking woman who I saw using a civil engineering professor today who has lost about 7 and [...] 12:16 PM EST): This is a 52-year-old Eritrean-speaking woman who started the program at [facility] and did not lose very much weight on the program. The patient is now restarting the program at [facility] in an effort to undergo laparoscopic sleeve [...] protein shake or a protein bar or Stateless yogurt or cottage cheese to be consumed [...] weight loss with the bariatric surgeons at [facility]. She is preparing for surgery. No [...] Department Care Team Description 05/24/2025 Refill [facility] [address] [place] [address] Pardeep Du MD Medication Refill 05/03/2025 10:33 AM EDT Anesthesia Event [facility] Endoscopy Admitting Dept Virtual Department [address] [place] [address] Drake Mcgovern MD 05/03/2025 10:30 AM EDT - 05/03/2025 11:00 AM EDT Surgery [facility] Endoscopy Admitting Dept Virtual Department [address] [place] [address] Lani Marion MD COLONOSCOPY 05/03/2025 9:27 AM EDT - 05/03/2025 12:00 PM EDT Hospital Encounter [facility] Admitting Dept Virtual Department [address] [place] [address] Lani Marion MD Discharge Disposition: Home or Self Care 05/03/2025 Procedure Pass [facility] Endoscopy Admitting Dept Virtual Department [address] [place] [address] 04/27/2025 10:00 AM EDT Pre-Admission Testing Pre Procedure Evaluation [address] [place] [address] Lani Marion MD from Last 3 Months [...] of 2) 2022 DEPRESSION SCREENING 12/06/2022 12/06/2021 MAMMOGRAM 05/01/2025 05/01/2023, 03/2 01/2022, 11/28/2020, Additional history exists INFLUENZA VACCINE (#1) 2025 , 08/06/2022, 09/26/2021, Additional history exists COVID-19 VACCINE ( season) 2025 09/26/2021, 02/17/2021, 01/26/2021 SCREENING FOR DIABETES 01/29/2027 01/30/2024, 2022 PAP [...] this topic Medical Devices Implanted Type Area Keeler Polygraph Operator Device Identifier Shelf Expiration Date Model / Serial / Lot System Implant Achilles Speedbridge Biocomposite - [id number] Implanted:Qty: 1 on 06/20/2022 by Drake Canales MD at [facility] Left: Ankle ARTHREX 03/27/2025 [id number] / / [id number] Procedures Procedure Name Priority Date/Time Associated Diagnosis Comments GA COLSC FLX W/RMVL OF TUMOR POLYP LESION SNARE TQ 05/03/2025 10:29 AM EDT Gastroesophageal reflux disease without esophagitis Slow transit constipation Hx of colonic polyps Special Needs Hx CHF - cardiac workup done - see notes GA COLONOSCOPY W/BIOPSY SINGLE/MULTIPLE 05/03/2025 10:29 AM EDT Gastroesophageal reflux disease without esophagitis Slow transit constipation Hx of colonic polyps Special Needs Hx CHF - cardiac workup done - see notes GA COLONOSCOPY FLX DX W/COLLJ SPEC WHEN PFRMD [...] Marion MD - 05/03/2025 10:24 AM EDT [facility] Patient Name: Heidi Gupta Attending MD:: LANI MARION MD, Procedure Date: 05/03/2025 10:24 AM Date of : 1970 Age: 54 Admit Type: Outpatient Gender: Female Room: [place] [address] Referring MD: Kirstin Reyes Exam Type: Colonoscopy [...] monitored continuously. The Olympus adult variable colonoscope [id number] #1 was introduced through the anus and [...] 10:24 AM Procedure Code(s): --- Professional --- 14212, Colonoscopy, flexible; with removal of tumor(s), polyp(s), or other lesion(s) by snare technique --- Technical --- 18742, Colonoscopy, flexible; with removal of tumor(s), polyp(s), or other lesion(s) by snare technique CPT copyright 2021 [employer]. All rights reserved. The codes documented in this report are preliminary and upon office nurse reviewmay be revised to meet current compliance requirements. Procedure Date: 05/03/2025 10:24:[address] [place] [address] Kirstin GRAJEDA GI PROCEDURE ORDERABL ES Final Result * Anatomic Pathology (05/03/2025 12:00 AM EDT) 05/03/2025 05/03/2025 1:3 4 PM EDT Narrative SEE NARRATIVE - 05/04/2025 4:43 PM EDT [address] [address] Associate Professor Of Musicology: Jonatan Wilks MD Surgical Pathology Report FINAL [...] entirely submitted A1. LT 05/03/2025 Grossing Staff: [facility] Patient Name: HEIDI GUPTA : 1970 (Age: 54) Sex: F [facility] Date of Operation: 05/03/2025 Date of Reported: [...] become apparent in either breast. Procedure Note Andrwe Whaley MD - 05/03/2023 AVAILABLE COMPARISON: 01/14/2022 [...] DUE DATE: 12 Months Right Mammography Screening Pardeep Du MD IMG MG EXAMS Final Resul t * (ABNORMAL) Lipid panel (12/09/2022 4:15 AM EST) HDL 66 mg/dL [facility] Comment: Interpretation <40 mg/dL: Low HDL cholesterol (major risk factor for CHD) Greater than or equal to 60 mg/dL: High HDL cholesterol ( negative risk factor for CHD) HDL - cholesterol is affected by a number of factors, e.g. smoking, excerise, hormones, sex and age. CHOLESTEROL 163 0 - 240 mg/dL [facility] TRIGLYCERIDES 73 30 - 160 mg/dL [facility] LDL 82 50 - 129 mg/dL [facility] Comment: LDL levels in terms of risk for coronary heart disease: <100 mg/dL: Optimal 100-129 mg/dL: Near or above optimal 130-159 mg/dL: Borderline high 160-189 mg/dL: High >190 mg/dL: Very High CARDIAC RISK RATIO 2.5(L) 3.3 - 4.4 C [facility] Blood 12/09/2022 4:15 AM EST 12/09/2022 4:23 AM EST Olinda Higgins MD LAB BLOOD ORDERABLES Final Result [address] [address] * Pap Smear (03/20/2022 12:00 AM EDT) 03/20/2022 03/21/2022 8:4 4 AM EDT Narrative SEE NARRATIVE - 03/27/2022 11:19 AM EDT [address] [address] Associate Professor Of Musicology: Emily Estevez MD [employer] TANNER Cytology Report FINAL DIAGNOSIS A. PAP SMEAR [...] 52, 56, 58, 59, 66, 68) by Xcedex Onclarity HR-HPV analysis. Clinical correlation is advised. This HPV test was performed at [facility], [address] [place] [address]. This test has been FDA approved for SurePath cervical cytology specimens. The accuracy and precision of this test for all other specimen sources has been verified in the Cytopathology Laboratory of the [facility] and has not been cleared or approved by the U.S. Food and Drug Administration. Clinical correlation is advised. CLINICAL HISTORY Date of Last Menstrual Period: 03-20-2022 Menstrual History: Bleeding, Abnormal Other Clinical Conditions: Screening Pap SPECIMEN SOURCE A: PAP SMEAR (SUREPATH) CE Patient Name: HEIDI GUPTA : 1970 (Age: 51) Sex: F Institution: [facility] Location: [facility] Date of Collection: 03/20/2022 Date of Reported: 03/27/2022 11:19 Results to: Ted Bello MD us Ted Bello MD CYTOLOGY ORDERABLES Final Result SEE NARRATIVE * Hepatitis C antibody, qualitative (01/25/2022 8:02 AM EDT) HCV NON-REACTIV E NON-REACTI VE [facility] Blood 01/25/2022 8:02 AM EDT 01/25/2022 8:06 AM EDT Pardeep Du MD LAB BLOOD ORDERABLES Final Result Performing Organization Address City/[facility] Co de Phone Number [address] [address] * CT CHEST PULMONARY ANGIOGRAM (ACUTE) (09/26/2019 1:20 AM EST) Anatomical Region Laterality Modality Chest, Thoracic Vasculature Comp uted Tomography 09/26/2019 8:24 AM EST Impressions 09/26/2019 8:29 AM EST No pulmonary embolism demonstrated. Peripheral subsegmental emboli could be occult on this examination. No focal airspace infiltrate or pleural effusion. These findings were relayed to the Emergency Department by the [facility] on 09/26/2019. Incidental non-obstructive left nephrolithiasis. TOTAL CTDIvol: 113.60 mGy POS - [id number] Narrative 09/26/2019 8:29 AM EST COMPARISON: 09/25/2019 [...] were relayed to the Emergency Department by [facility] [place] on 09/26/2019. Incidental non-obstructive left nephrolithiasis. TOTAL CTDIvol: 113.60 mGy POS - [id number] us Dilshad Duncan DO IMG CT CHEST Final Result from Last 3 Months or Most Recently Relevant to Health Maintenance Insurance [facility] ACO [facility] ACO [facility]CO [facility] ACO [facility] ACO [facility] ACO PROGRESSIVE INSURANCE Advance Directives For more information, please contact: [phone] (9AM - 5PM [facility], Saturday-Saturday) * Full Code (Latest Code Status on File) Date Activated Date Inactivated Comments 12/09/2022 3:44 AM Question Answer Comments Code Status Confirmed With: PatientFamily Care Teams Concrete Tile Machine Operator Relationship Specialty Start Date End Date Kristin Reyes PA [address] [place] [address] [place] [address] PCP - General Physician Prestidigitator 05/03/25 Additional Source Comments The information contained in this document represents components of the legal health record. It is not the complete legal health record.[facility]
--- OUTSIDE RECORDS SUMMARY | 2025-06-29 20:49 | XMS_ITS | Encounter Summary ---
Author Organization [facility] Address [address] [facility] [address] [place] [address] Phone Care Team Providers Care Book Or Script Editor Name Role Phone Pardeep Du MD Primary Care Provider [phone] Pardeep Du MD Unavailable [phone] Jessie Smith RN Unavailable [phone] Delilah Cervantes DO Primary Care Provider [phone] Kirstin Reyes Primary Care Provide r Encounter Details Date Type Department Care Team (Late st Contact Info) Description 09/16/2019 Ancillary Orders [facility],Outside Imaging [address] [place], [place] [id number] System, Provider Not In, [facility] [address] [address] Social History Tobacco Use Types Packs/Day Years [...] education for yourself related to: Learning the Swazi language? Completing high school, earning a high [...] documented as of this encounter Care Teams Book Or Script Editor Relationship Specialty Start Date End Date Pardeep Du MD [address] [place] [address], [address] [place] [address] francisco PCP - General Internal Medicine 04/01/19 05/18/24 Delilah Cervantes DO [address] [place] [address] PCP - General Family Medicine 05/19/24 05/02/25 Kirstin Reyes PA [address] [place] [address] [place] [address] PCP - General Physician Quality Compliance Consultant 05/03/25 Pardeep Du MD [address] [place] [address] francisco Insurance Assigned Provider 08/08/19 07/06/23 Jessie Smith, RN [address] [place] [address] i[employer] Urology Physician Assistant 12/12/22 01/24/23 documented as of this encounter Additional Source Comments The information contained in this document represents components of the legal health record. It is not the complete legal health record.[facility]
--- OUTSIDE RECORDS SUMMARY | 2025-06-29 20:49 | XMS_ITS | Encounter Summary ---
Author Organization [facility] Address [address] [facility] [address] [place] [address] Phone Care Team Providers Care Remote Mortgage Underwriter Name Role Phone Pardeep Du MD Primary Care Provider [phone] Pardeep Du MD Unavailable [phone] Jsesie Smith RN Unavailable Delilah Cervantes DO Primary Care Provider [phone] Kirstin Reyes Primary Care Provide r Encounter Details Date Type Department Care Team (Late st Contact Info) Description 08/07/2021 Procedure Pass [facility], Ct Scan - [address] [address] Social History Tobacco Use Types Packs/Day Years [...] education for yourself related to: Learning the Samoan language? Completing high school, earning a high [...] 7:48 PM EDT Aniyah Price RN * [place] Suicide Severity Rating Scale (Screener/Recent Self-Report) Question [...] documented as of this encounter Care Teams Remote Mortgage Underwriter Relationship Specialty Start Date End Date Pardeep Du MD [address] [place] [address] [email or web address] PCP - General Internal Medicine 04/01/19 05/18/24 Delilah Cervantes DO [address] [place] [address] PCP - General Family Medicine 05/19/24 05/02/25 Kirstin Reyes PA [address] [place] [address] PCP - General Physician Curriculum Director 05/03/25 Pardeep Du MD [address] [place] [address] francisco Insurance Assigned Provider 08/08/19 07/06/23 Jessie Smith, RN [address] [place] [address] [email or web address] iCMP Environmental Marketer 12/12/22 01/24/23 documented as of this encounter Additional Source Comments The information contained in this document represents components of the legal health record. It is not the complete legal health record.[facility]
--- OUTSIDE RECORDS SUMMARY | 2025-06-29 20:49 | XMS_ITS | Encounter Summary ---
Author Organization [facility] Address [address] [facility] [address] [place] [address] Phone Care Team Providers Care Cloth Shrinking Machine Operator Helper Name Role Phone Kirstin Reyes Primary Care Provide r Encounter Details Date Type Department Care Team (Late st Contact Info) Description 05/03/2025 Procedure Pass [facility] Endoscopy Admitting Dept Virtual Department [address] [place] [address] Social History Tobacco Use Types Packs/Day Years [...] documented as of this encounter Care Teams Cloth Shrinking Machine Operator Helper Relationship Specialty Start Date End Date Kirstin Reyes PA [address] [place] [address] [place] [address] PCP - General Physician Law Enforcement Instructor 05/03/25 documented as of this encounter Additional Source Comments The information contained in this document represents components of the legal health record. It is not the complete legal health record.[facility]
--- OUTSIDE RECORDS SUMMARY | 2025-06-29 20:49 | XMS_ITS | Encounter Summary ---
Author Organization [facility] Address [address] [facility] [address] [place] [address] Phone Care Team Providers Care Bench Assembler Electrical Name Role Phone Pardeep Du MD Primary Care Provider Pardeep Du MD Unavailable [phone] Delilah Cervantes DO Primary Care Provider Kirstin Reyes Primary Care Provide r Encounter Details Date Type Department Care Team (Late st Contact Info) Description 04/05/2023 Procedure Pass [facility], [address] [address] Social History Tobacco Use Types Packs/Day Years [...] documented as of this encounter Care Teams Bench Assembler Electrical Relationship Specialty Start Date End Date Pardeep Du MD [address] [place] [address], 2[address] [place] [address] francisco PCP - General Internal Medicine 04/01/19 05/18/24 Delilah Cervantes DO [address] [place] [address] PCP - General Family Medicine 05/19/24 05/02/25 Kirstin Reyes PA [address] [place] [address] PCP - General Physician Fabric Sourcer 05/03/25 Pardeep Du MD [address] [place] [address], 2[address] [place] [address] francisco [email or web address] Insurance Assigned Provider 08/08/19 07/06/23 documented as of this encounter Additional Source Comments The information contained in this document represents components of the legal health record. It is not the complete legal health record.[facility]
--- OUTSIDE RECORDS SUMMARY | 2025-06-29 20:49 | XMS_ITS | Encounter Summary ---
Author Organization [facility] Address [address] [facility] [address] [place] [address] Phone Care Team Providers Care Charge Hand Name Role Phone Pardeep Du MD Primary Care Provider [phone] Pardeep Du MD Unavailable [phone] Jessie Smith RN Unavailable [phone] Delilah Cervantes DO Primary Care Provider Kirstin Reyes Primary Care Provide r Encounter Details Date Type Department Care Team (Late st Contact Info) Description 09/16/2019 Ancillary Orders [facility],Outside Imaging [address] [place], [place] [id number] System, Provider Not In, [facility] [address] [address] Social History Tobacco Use Types Packs/Day Years [...] education for yourself related to: Learning the [place] Islander language? Completing high school, earning a high [...] documented as of this encounter Care Teams Charge Hand Relationship Specialty Start Date End Date Pardeep Du MD [address] [place] [address], [address] [place] [address] francisco PCP - General Internal Medicine 04/01/19 05/18/24 Delilah Cervantes DO [address] [place] [address] PCP - General Family Medicine 05/19/24 05/02/25 Kirstin Reyes PA [address] [place] [address] [place] [address] PCP - General Physician Fish Peddler 05/03/25 Pardeep Du MD [address] [place] [address] francisco Insurance Assigned Provider 08/08/19 07/06/23 Jessie Smith, RN [address] [place] [address] i[employer] Mine Motor Engineer 12/12/22 01/24/23 documented as of this encounter Additional Source Comments The information contained in this document represents components of the legal health record. It is not the complete legal health record.[facility]
--- OUTSIDE RECORDS SUMMARY | 2025-06-29 20:49 | XMS_ITS | Encounter Summary ---
Author Organization [facility] Address [address] [facility] [address] [place] [address] Phone Care Team Providers Care Impregnation Operator Name Role Phone Pardeep Du MD Primary Care Provider [phone] Pardeep Du MD Unavailable [phone] Jessie Smith RN Unavailable [phone] Delilah Cervantes DO Primary Care Provider Kirstin Reyes Primary Care Provide r Encounter Details Date Type Department Care Team (Late st Contact Info) Description 10/18/2020 Procedure Pass [facility] - [address] [place] [address] Social History Tobacco Use Types Packs/Day Years [...] education for yourself related to: Learning the Russian language? Completing high school, earning a high [...] documented as of this encounter Care Teams Impregnation Operator Relationship Specialty Start Date End Date Pardeep Du MD [address] [place] [address], 2nd [place] [address] francisco PCP - General Internal Medicine 04/01/19 05/18/24 Delilah Cervantes DO [address] [place] [address] PCP - General Family Medicine 05/19/24 05/02/25 Kirstin Reyes PA [address] [place] [address] [place] [address] PCP - General Physician Still Operator 05/03/25 Pardeep Du MD [address] [place] [address], 2[address] [place] [address] francisco [email or web address] Insurance Assigned Provider 08/08/19 07/06/23 Jessie Smith, RN [address] [place] [address] [email or web address] iCMP Quencher Operator 12/12/22 01/24/23 documented as of this encounter Additional Source Comments The information contained in this document represents components of the legal health record. It is not the complete legal health record.[facility]
--- OUTSIDE RECORDS SUMMARY | 2025-06-29 20:49 | XMS_ITS | Encounter Summary ---
Author Organization [facility] Address [address] [facility] [address] [place] [address] Phone Care Team Providers Care Engineering Systems Analyst Name Role Phone Pardeep Du MD Primary Care Provider [phone] Pardeep Du MD Unavailable [phone] Jessie Smith RN Unavailable [phone] Delilah Cervantes DO Primary Care Provider Kirstin Reyes Primary Care Provide r Encounter Details Date Type Department Care Team (Late st Contact Info) Description 02/28/2022 Procedure Pass [facility] - [address] [place] [address] Social History Tobacco Use Types Packs/Day Years [...] yourself related to: Learning the [place] language? Completing high school, earning a high [...] documented as of this encounter Care Teams Engineering Systems Analyst Relationship Specialty Start Date End Date Pardeep Du MD [address] [place] [address], [address] [place] [address] francisco PCP - General Internal Medicine 04/01/19 05/18/24 Delilah Cervantes DO [address] [place] [address] PCP - General Family Medicine 05/19/24 05/02/25 Kirstin Reyes PA NPI: [id number] [place] [address] [place] [address] PCP - General Physician Boat Outboard Engine Mechanic 05/03/25 Pardeep Du MD [address] [place] [address], [address] [place] [address] francisco [email or web address] Insurance Assigned Provider 08/08/19 07/06/23 Jessie Smith, RN [address] [place] [address] [email or web address] iCMP Electroplater Apprentice 12/12/22 01/24/23 documented as of this encounter Additional Source Comments The information contained in this document represents components of the legal health record. It is not the complete legal health record.[facility]
--- OUTSIDE RECORDS SUMMARY | 2025-06-29 20:49 | XMS_ITS | Encounter Summary ---
Author Organization [facility] Address [address] [facility] [address] [place] [address] Phone Care Team Providers Care Explosive Operator Bomb Name Role Phone Pardeep Du MD Primary [...] CONTRAST Gilda Carranza PA-C Phone: tel: fax: mailto:[email or web address] Referral ID Status Reason Start Date Expiration Date Visits Re quested Visits Authorized [id number] Closed 07/07/2024 09/05/2024 1 1 Encounter Details Date Type Department Care Team (Latest Contact Info) Description 04/06/2024 Transcribe Orders Virtual Department [address] [place] [address] Gilda Carranza PA-C [address] [place] [address] LLQ abdominal pain (Primary Dx); Constipation, unspecified [...] llq abdomen pain, [facility] lower [facility] as well as constipation [...] documented as of this encounter Care Teams Explosive Operator Bomb Relationship Specialty Start Date End Date Pardeep Du MD [address] [place] [address], [address] [place] [address] francisco [email or web address] PCP - General Internal Medicine 04/01/19 05/18/24 Delilah Cervantes DO [address] [place] [address] PCP - General Family Medicine 05/19/24 05/02/25 Kirstin Reyes PA [address] [place] [address] [place] [address] PCP - General Physician Carpet Mechanic 05/03/25 documented as of this encounter Additional Source Comments The information contained in this document represents components of the legal health record. It is not the complete legal health record.[facility]
--- OUTSIDE RECORDS SUMMARY | 2025-06-29 20:49 | XMS_ITS | Encounter Summary ---
Author Organization [facility] Address [address] [place] [address] Phone Care Team Providers Care Burling And Joining Supervisor Name Role Phone Pardeep Du MD Primary Care Provider [phone] Pardeep Du MD Unavailable [phone] Jessie Smith RN Unavailable [phone] Delilah Cervantes DO Primary Care Provider Kirstin Reyes Primary Care Provide r Encounter Details Date Type Department Care Team (Late st Contact Info) Description 02/28/2022 Procedure Pass [facility] - [address] [place] [address] Social History Tobacco Use Types Packs/Day Years [...] education for yourself related to: Learning the Ethiopian language? Completing high school, earning a high [...] documented as of this encounter Care Teams Burling And Joining Supervisor Relationship Specialty Start Date End Date Pardeep Du MD [address] [place] [address], [address] [place] [address] francisco PCP - General Internal Medicine 04/01/19 05/18/24 Delilah Cervantes DO [address] [place] [id number] PCP - General Family Medicine 05/19/24 05/02/25 Kirstin Reyes PA [address] [place] [address] [place] [address] PCP - General Physician Fraud Prevention Analyst 05/03/25 Pardeep Du MD [address] [place] [address], [address] [place] [address] francisco [email or web address] Insurance Assigned Provider 08/08/19 07/06/23 Jessie Smith, RN [address] [place] [id number] [email or web address] Vehicle Body Maker 12/12/22 01/24/23 documented as of this encounter Additional Source Comments The information contained in this document represents components of the legal health record. It is not the complete legal health record.[facility]
[2025-06-29 23:28] VITALS: BP 151/69; PULSE 94; RESP 18; TEMP 37; O2SAT 96
== END 2025-06-29 23:30 | disposition home or self-care (01) ==
PROVIDERS: Physician Assistant Medical; Emergency Provider Emergency Medicine
DX: S16.1XXA Strain of muscle, fascia and tendon at neck level, initial encounter (principal); X58.XXXA Exposure to other specified factors, initial encounter; Y93.9 Activity, unspecified; Y92.9 Unspecified place or not applicable; Y99.9 Unspecified external cause status; M54.6 Pain in thoracic spine; M54.2 Cervicalgia; Z79.899 Other long term (current) drug therapy
CPT/HCPCS: 36415; 80053; 83735; 84484; 85025; 93005; 96372; 99283; 99284; J1885

== ENCOUNTER → 2025-06-29 19:27 | Outpatient (BNV) | payer OTHER, SELFPAY | PROVIDERS: Emergency Provider Emergency Medicine; Visit Provider Internal Medicine Cardiovascular Disease | DX: M54.6 Pain in thoracic spine (principal) | CPT/HCPCS: 93010 ==

== ENCOUNTER 2025-07-02 11:09 | Outpatient (AMB) | payer OTHER, SELFPAY ==
--- NOTE | 2025-07-02 11:10 | MHC.PC.OV ---
Vital Signs 07/02/25 11:11 Height 5 ft 9 in Weight 396 lb 2 oz BMI 58.5 BP 138/80 Position Sitting Respiration 18 Pulse 73 Pulse Source Pulse Oximeter Temp 97.3 F Temp Source Temporal Artery Scan Pulse Oximetry (%) 95 Oxygen Delivery Method Room Air Intake Visit Reasons: PE Director Sanitation Bureau Required: Yes Director Sanitation Bureau Language: Kazakh Accompanied by: Self / Same As Patient Allergies morphine Allergy (Severe, Verified 07/02/25 11:12) Shortness of Breath Seasonal Allergies Allergy (Severe, Verified 07/02/25 11:12) Sneezing latex (Latex) Allergy (Intermediate, Verified 07/02/25 11:12) ITCHY, RASH , AND FUNGUS oxycodone Allergy (Intermediate, Verified 07/02/25 11:12) Rash opium (anthroposophic) Allergy (Unknown, Verified 07/02/25 11:12) Hives Medication List - Last Reconciled 07/02/25 by Kirstin Reyes PA-C albuterol sulfate 90 mcg/actuation (Proventil HFA) 2 puffs inhalation Q6H PRN [Bed pads As directed] chlorthalidone 25 mg PO DAILY cholecalciferol (vitamin D3) (Vitamin D3) 50 mcg (2 x 25 mcg (1,000 unit)) PO DAILY cyanocobalamin (vitamin B-12) mcg IM cyclobenzaprine 10 mg PO TID PRN [Depends sanitary pads As directed] fexofenadine 180 mg PO DAILY furosemide 60 mg (1.5 x 40 mg) PO DAILY [hypoallergenic sanitary wipes As directed] ibuprofen 600 mg PO Q6H PRN ibuprofen 800 mg PO TID [Kneeling Scooter As directed] levothyroxine 25 mcg PO DAILY lidocaine 5% (Lidoderm) 1 patch topical DAILY PRN MDD remove after 12 hours mecobalamin (vitamin B12) 1,000 mcg subcut .once a week methocarbamol 500 mg PO TID PRN naproxen 500 mg PO BID PRN 10 days omeprazole 20 mg PO DAILY prednisone 40 mg (2 x 20 mg) PO DAILY sennosides (senna) 8.6 mg PO BEDTIME PRN Shower Chair As directed sucralfate (Carafate) 1 g PO BID PRN thiamine HCl (vitamin B1) 100 mg PO DAILY 90 days vitamin A palmitate 20,000 units PO DAILY 30 days [wipes As directed] Tobacco use date assessed: 07/02/25 Dental Screening Dental Screen Date: 07/02/25 Did you have a dental visit in the last 12 months?: No Did you have a dental problem in the last 6 months where you did not have access to dental care?: No Was dental information given to patient?: No HPI PE HPI Details 55-year-old female with past medical history of congestive heart failure, morbid obesity, sleep apnea, bilateral carpal tunnel syndrome, hypertension last seen 05/2025 by nurse practitioner coming in for annual exam. diplomatic interpreter [employer] [id number] was used for the duration of this visit. Presenting with neck pain, fatigue, and follow-up on a positive mammogram result. Neck pain was identified as a sprain, with ongoing discomfort despite initial evaluation. She is requesting an orthopedic neck pillow. The patient reports persistent fatigue and drowsiness, which is unusual for her as she typically remains alert throughout the day. She is currently awaiting sleep study testing and was previously using CPAP however Rx is out of date. She has experienced significant hair loss and general weakness, which may be related to her thyroid condition. A recent mammogram showed positive results for the right breast, with calcifications noted on ultrasound, but no immediate follow-up was recommended until the next year. However [facility] is planning for biopsy. The patient has a history of elevated thyroid hormone levels, which are being monitored with plans for further endocrinological evaluation. Mammogram: 12/2024 Eye exam: UTD Pap smear: UTD 04/2024 with salesperson children's shoes Colonoscopy: 2024 with [facility] vaccines: due for Td and given today [facility] Medical History Peripheral edema Essential hypertension Subclinical hypothyroidism Thyromegaly Lipoma of chest wall Chronic diastolic (congestive) heart failure Anal fistula Sinus complaint Sterilization Kidney stone Acute appendicitis Vesicular dermatitis Enlarged lymph node Acute bacterial tonsillitis History of claustrophobia History of anxiety Hx of tendinitis Hx of bursitis History of knee problem Hx of chronic arthritis Family history of heart murmur History of asthma Surgical History History of hand surgery Hx of carpal tunnel repair H/O bilateral mastectomy History of kidney surgery Hx of tubal ligation Hx of tonsillectomy Hx of breast surgery Hx of appendectomy Hx of cholecystectomy Hx of knee surgery History of Achilles tendon repair Family History Mother Accelerated hypertension Arthritis Cancer of stomach Father Arthritis Sister No problems noted. Sister Arthritis Accelerated hypertension Sister No problems noted. Sister No problems noted. Brother Overdose Brother HIV disease Son Asthma Son No problems noted. Son No problems noted. Son No problems noted. Daughter No problems noted. Social History Housing: Apartment Alcohol intake: never Patient Tobacco Use Status: Former Tobacco user Tobacco use type: Cigarette Cigarettes Per Day: 1 Years Smoked: 30 e-Cigarette/Vaping Use: Never Used Second Hand Smoke Exposure: Yes service: No Current occupational status: unemployed Cognitive needs: Yes Hearing needs: No Vision needs: Yes Female Reproductive History Menstrual Age of Menarche: 14 Questionnaire PHQ-9 Over the last 2 weeks, how often have you been bothered by any of the following problems? 1. Little interest or pleasure in doing things: not at all 2. Feeling down, depressed, or hopeless: not at all 3. Trouble falling or staying asleep, or sleeping too much: not at all 4. Feeling tired or having little energy: nearly every day 5. Poor appetite or overeating: nearly every day 6. Feeling bad about yourself - or that you are a failure or have let yourself or your family down: not at all 7. Trouble concentrating on things, such as reading the newspaper or watching television: not at all 8. Moving or speaking so slowly that other people could have noticed. Or the opposite - being so fidgety or restless that you have been moving around a lot more than usual: not at all 9. Thoughts that you would be better off or of hurting yourself in some way: not at all Total score: 6 Depression Screening Interpretation: Positive Depression Screening Done: Yes Source: Developed by Drs. Gonzalez Merida, Jenn Kramer, Matthew Jimenez and colleagues, with an educational honorio from [employer]. Thrive Questionnaire Date Thrive assessed: 07/02/25 I am a: Patient What is your living situation today?: I have a steady place to live Within the past 12 months, did the food you bought not last and you didn't have the money to get more?: Often true Within the past 12 months, did you worry whether your food would run out before you got money to buy more?: Often true Do you have trouble paying for medicines?: No Do you have trouble getting transportation to medical appointments?: No Do you have trouble paying your heating and electricity bill?: Yes Do you have trouble taking care of your child, family member or friend?: No Do you have trouble with day-to-day activities such as bathing, preparing meals, shopping, managing finances, etc.?: Yes Are you currently unemployed and looking for a job?: Yes Are you interested in more education?: No Currently or been in a relationship where the following occur: No concerns reported THRIVE Score: 3 AUDIT C Alcohol Use Questionnaire (AUDIT-C) 1. How often do you have a drink containing alcohol?: Never 3. How often do you have six or more drinks on one occasion?: Never Total Score: 0 DANDY-7 AMB Questionnaire DANDY-7 Date DANDY - 7 assessed: 07/02/25 Feeling nervous, anxious, or on edge: 0 = Not at all Not being able to stop or control worryin = Not at all Worrying too much about different things: 0 = Not at all Trouble relaxin = Not at all Being so restless that it is hard to sit still: 0 = Not at all Becoming easily annoyed or irritable: 0 = Not at all Feeling afraid as if something awful might happen: 0 = Not at all Total DANDY-7 score (0-4 normal; 5-9 mild; 10-14 moderate; 15-21 severe): 0 Source: Developed by Drs. Gonzalez Merida, Jenn Kramer, Matthew Jimenez and colleagues, with an educational honorio from [employer]. Review of Systems Const Denies body aches, Reports fatigue, Denies fever(s), Denies frequent falls, Denies headache(s), Reports snoring and Denies weakness Eyes Reports no additional complaints and Denies change in vision ENT Denies dizziness, Denies facial pain, Denies headache(s) and Denies odynophagia Card Denies chest pain, Denies syncope, Denies irregular heart rhythm, Denies leg edema, Denies lightheadedness and Denies dyspnea Resp Denies cough, Denies dyspnea and Reports snoring GI Denies constipation, Denies dyspepsia, Denies diarrhea, Denies nausea, Denies odynophagia and Denies vomiting Denies urinary frequency, Denies dysuria, Denies urinary hesitancy and Denies urinary urgency Musc Denies back pain and Denies myalgias Skin/Breast Reports system reviewed and no additional complaints, except as documented Neuro Denies dizziness, Denies syncope, Denies frequent falls, Denies headache(s) and Denies weakness Psych Reports no additional complaints Endo Reports fatigue Physical exam (Primary Care) Vital Signs: Last Vital Signs Temp 97.3 F 07/02/25 11:11 Pulse 73 07/02/25 11:11 Resp 18 07/02/25 11:11 BP 138/80 07/02/25 11:11 Pulse Ox 95 07/02/25 11:11 Oxygen Delivery Method Room Air 07/02/25 11:11 BMI result Body Mass Index 58.5 Tobacco/Smoking Status: Tobacco use Status Tobacco use date assessed 07/02/25 07/02/25 11:14 Patient Tobacco Use Status Former Tobacco user 07/02/25 11:14 Tobacco use type Cigarette 07/02/25 11:14 e-Cigarette/Vaping Use Never Used 07/02/25 11:14 PHQ-9: PHQ-9 Score PHQ-9: Total score 6 07/02/25 12:14 Depression Screening Interpretation: Positive Thrive Assessment: Date of Thrive Assessment Date Thrive assessed 07/02/25 07/02/25 11:14 Currently or been in a relationship where the following occur: No concerns reported Const General: cooperative, healthy appearing, comfortable and no acute distress Orientation/consciousness: patient oriented x3 HENMT Head: Yes normocephalic Ears: hearing grossly normal bilaterally, external ears normal, TM's normal bilaterally and EAC's normal General nose exam: Normal external nose present Face and sinus: Yes normal facial exam and Yes sinuses nontender Mouth: Normal oral and palatal mucosa present and tongue normal Throat: Yes posterior oropharynx normal Eyes General: appearance normal, both eyes and all related structures Conjunctivae: conjunctivae normal Pupils: Equal, round and reactive pupils present EOM: EOMs intact bilaterally and No Nystagmus present Neck Neck: Yes normal visual inspection, Yes full ROM and Yes no lymphadenopathy Chest Chest palpation & inspection: normal inspection of the chest Resp Effort & Inspection: normal respiratory effort Auscultation: clear to auscultation bilaterally, no crackles, no rales, no rhonchi, no wheezes and breath sounds present Cardio Rate: regular rate Rhythm: regular rhythm Peripheral pulses: radial pulses present and dorsalis pedis present GI Inspection: Yes normal to inspection and No Abdominal wall edema Palpation (GI): Soft to palpation, not firm and nontender Auscultation: normal bowel sounds Rectal Exam - Female: deferred General: Yes no CVA tenderness Back/Spine/Pelvis Back: no CVA tenderness Skin General skin exam: no rashes or lesions noted Neuro General: patient oriented x3 Cranial nerves: Yes Equal, round and reactive pupils present, Yes Midline tongue present, Yes Ability to bilaterally elevate shoulders present and No Nystagmus present Gait exam (Neuro): Normal gait present Extrem General: Yes normal to inspection, Yes full ROM, No no pedal edema and No edema Psych Speech and movement: Normal speech and movement present Affect: normal affect Insight: Good insight present (Psych) Judgement: Good judgement present (Psych) Immunizations Tenivac (PF) 5 Lf unit-2 Lf unit/0.5 mL intramuscular syringe Performing Provider: Kirstin Reyes PA-C [facility] Administered by: Valentina Arias RN on 07/02/25 12:14 Dose Route Admin Location Dispensed Lot Number Expiration Date [facility] Dance Artist 0.5 mL IM Left Deltoid 0.5 mL [id number] 02/24/27 [id number] [employer] Total Dispensed Waste 0.5 mL 0 % VIS Given Date VIS Provided VIS Publication Date 07/02/25 Single Vaccine 21 Eligibility Eligibility Date Funding Source Not [facility] Eligible 07/02/25 Private Coding Diagnoses Annual physical exam Z00.00 Essential hypertension I10 Chronic diastolic (congestive) heart failure I50.32 Hypothyroid E03.9 Morbid obesity due to excess calories E66.01 Cervical cancer screening Z12.4 Sleep apnea with use of continuous positive airway pressure (CPAP) G47.30 Hair loss L65.9 Asthma J45.909 Cervical strain S16.1XXA Assessment & Plan Assessment & Plan (1) Annual physical exam: Code(s): Z00.00 - Encounter for general adult medical examination without abnormal findings Category: Medical Plan: Patient is up-to-date on all recommended routine screenings and vaccinations for her age. Healthy diet and regular exercise is encouraged. (2) Essential hypertension: Code(s): I10 - Essential (primary) hypertension Category: Medical Plan: Continue on current blood pressure medication. Avoid salt intake and encourage healthy diet and regular exercise. (3) Chronic diastolic (congestive) heart failure: Comment: Coronary CTA 12/09/2024 Impression: 1. No evidence of hemodynamically significant coronary artery disease. 2. Minimal stenosis due to noncalcified plaque versus artifact mild RCA. 3. Mild stenosis in the mid LAD approximately 25% due to superficial myocardial bridge. Code(s): I50.32 - Chronic diastolic (congestive) heart failure Category: Medical Plan: Continue to follow with Cardiology. She was advised at her last visit to reach out to schedule appointment sooner than yearly as new blood pressure medication was added to regimen and she is encouraged once again to reach out to cardiology. Continue on blood pressure medication regimen and Lasix. (4) Hypothyroid: Code(s): E03.9 - Hypothyroidism, unspecified Category: Medical Plan: Thyroid levels were abnormal patient's reminded about blood work and continue on levothyroxine at this time. Continue to follow with endocrinology (5) Morbid obesity due to excess calories: Code(s): E66.01 - Morbid (severe) obesity due to excess calories Category: Medical Plan: Healthy diet and regular exercise is encouraged. (6) Cervical cancer screening: Comment: 05/04/2024 Pap is negative the HPV testing is pending( as of 06/23/2024 still no HPV results lab again contacted to search for HPV results.) Code(s): Z12.4 - Encounter for screening for malignant neoplasm of cervix Category: Medical Plan: Continue to follow with gynecology recent Pap smear is up-to-date (7) Sleep apnea with use of continuous positive airway pressure (CPAP): Code(s): G47.30 - Sleep apnea, unspecified Category: Medical Plan: Not currently using CPAP as her prescriptions out of date and awaiting new sleep study test. Discussed with the patient sleep apnea along with thyroid may be contributing to overall fatigue. (8) Hair loss: Code(s): L65.9 - Nonscarring hair loss, unspecified Category: Medical Plan: Ordered for updated blood work including thyroid and vitamin levels. (9) Asthma: Code(s): J45.909 - Unspecified asthma, uncomplicated Category: Medical Plan: Asthma currently controlled on present medications. Continue on albuterol as needed. Avoid triggers such as allergies. (10) Cervical strain: Code(s): S16.1XXA - Strain of muscle, fascia and tendon at neck level, initial encounter Category: Medical Plan: Patient is requesting an orthopedic neck pillow which has been printed and sent to pharmacy. Continue to use Tylenol and ibuprofen as needed along with muscle relaxer as needed. Plan During the visit, we discussed the patient's neck sprain and the need for conservative management, including rest and potential physical therapy. We reviewed the positive mammogram results and the plan for a follow-up biopsy to evaluate calcifications. The patient's elevated thyroid hormone levels were addressed, with plans for re-evaluation and endocrinology consultation. We also discussed the patient's fatigue, drowsiness, and hair loss, with blood work ordered to assess for possible deficiencies. The patient was advised to follow up with a solar electric installer for chest pain evaluation. This note was constructed using voice recognition software. While every effort has been made to ensure accuracy and dustless operator, still areas may have been included sometimes these areas may affect the content or meeting of the given symptoms. Total time spent caring for the patient today was 30 minutes. This includes time spent before the visit reviewing the chart, time spent during the visit, and time spent after the visit and documentation. Patient was informed and verbally consented to the use of an ambient scribe for clinic note documentation during this visit. Orders: Orders Vitamin D 25-OH Total 07/02/25 Z13.21 - Encounter for screening for nutritional disorder Lipid Panel 07/02/25 I50.32 - Chronic diastolic (congestive) heart failure IRON PROFILE 07/02/25 L65.9 - Nonscarring hair loss, unspecified Td Immunization 07/02/25 Z23 - Encounter for immunization TSH reflex Free T4 07/02/25 E03.8 - Other specified hypothyroidism, Z13.29 - Encounter for screening for other suspected endocrine disorder Free T4 (Free Thyroxine) 07/02/25 E03.8 - Other specified hypothyroidism, Z00.00 - Encounter for general adult medical examination without abnormal findings Vitamin B12 and Folate 07/02/25 Z13.21 - Encounter for screening for nutritional disorder Td Immunization 07/02/25 Z23 - Encounter for immunization Medications: New Tenivac (PF) (tetanus and diphther. tox (PF)) 0.5 mL IM ONCE 0.5 mL 0RF NS Z23 - Encounter for immunization [nebulizer] As directed 1 ea 0RF J45.909 - Unspecified asthma, uncomplicated Refilled ibuprofen 600 mg PO Q6H PRN 20 tabs 0RF pain fexofenadine 180 mg PO DAILY 30 tabs 3RF
[2025-07-02 11:11] VITALS: BP 138/80; PULSE 73; RESP 18; TEMP 36.3; O2SAT 95; BMI 58.5
--- OUTSIDE RECORDS SUMMARY | 2025-07-02 12:15 | XMS_ITS | Encounter Summary ---
Author Organization [facility] Address [address] [place] [address] Phone Care Team Providers Care Cable Installation Technician Name Role Phone Pardeep Du MD Primary Care Provider [phone] Pardeep Du MD Unavailable [phone] Jessie Smith RN Unavailable [phone] Delilah Cervantes DO Primary Care Provider Kirstin Reyes Primary Care Provide r Encounter Details Date Type Department Care Team (Late st Contact Info) Description 09/16/2019 Ancillary Orders [facility],Outside Imaging [address] [place], [place] [id number] System, Provider Not In, [facility] [address] [address] Social History Tobacco Use Types Packs/Day Years [...] education for yourself related to: Learning the Congolese language? Completing high school, earning a high [...] documented as of this encounter Care Teams Cable Installation Technician Relationship Specialty Start Date End Date Pardeep Du MD [address] [place] [address], [address] [place] [id number] francisco PCP - General Internal Medicine 04/01/19 05/18/24 Delilah Cervantes DO [address] [place] [id number] PCP - General Family Medicine 05/19/24 05/02/25 Kirstin Reyes PA [address] [place] [address] [place] [address] PCP - General Physician Automotive Shop Foreman 05/03/25 Pardeep Du MD [address] [place] [address] francisco Insurance Assigned Provider 08/08/19 07/06/23 Jessie Smith, RN [address] [place] [id number] iCMP Can Coverer 12/12/22 01/24/23 documented as of this encounter Additional Source Comments The information contained in this document represents components of the legal health record. It is not the complete legal health record.[facility]
--- OUTSIDE RECORDS SUMMARY | 2025-07-02 12:15 | XMS_ITS | Encounter Summary ---
Author Organization [facility] Address [address] [place] [address] Phone Care Team Providers Care Microbiology Lab Assistant Name Role Phone Kirstin Reyes Primary Care Provide r Encounter Details Date Type Department Care Team (Late st Contact Info) Description 05/03/2025 Procedure Pass [facility] Endoscopy Admitting Dept Virtual Department [address] [place] [address] Social History Tobacco Use Types Packs/Day Years [...] documented as of this encounter Care Teams Microbiology Lab Assistant Relationship Specialty Start Date End Date Kirstin Reyes PA [address] [place] [address] [place] [address] PCP - General Physician Hoop Driving Machine Operator 05/03/25 documented as of this encounter Additional Source Comments The information contained in this document represents components of the legal health record. It is not the complete legal health record.[facility]
--- OUTSIDE RECORDS SUMMARY | 2025-07-02 12:15 | XMS_ITS | Encounter Summary ---
Author Organization [facility] Address [address] [facility] [address] [place] [address] Phone Care Team Providers Care Maintenance And Custodian Supervisor Name Role Phone Pardeep Du MD Primary Care Provider [phone]- [phone] Pardeep Du MD Unavailable [phone] Jessie Smith RN Unavailable [phone] Delilah Cervantes DO Primary Care Provider [phone] Kirstin Reyes Primary Care Provide r Encounter Details Date Type Department Care Team (Late st Contact Info) Description 09/16/2019 Ancillary Orders [facility],Outside Imaging [address] [place], [place] [id number] System, Provider Not In, PhD Partners [address] [address] Social History Tobacco Use Types Packs/Day Years [...] education for yourself related to: Learning the Spanish language? Completing high school, earning a high [...] documented as of this encounter Care Teams Maintenance And Custodian Supervisor Relationship Specialty Start Date End Date Pardeep Du MD [address] [place] [address], [address] [place] [address] francisco PCP - General Internal Medicine 04/01/19 05/18/24 Delilah Cervantes DO [address] [place] [address] PCP - General Family Medicine 05/19/24 05/02/25 Kirstin Reyes PA [address] [place] [address] [place] [address] PCP - General Physician Able Bodied Tankerman 05/03/25 Pardeep Du MD [address] [place] [address] francisco Insurance Assigned Provider 08/08/19 07/06/23 Jessie Smith, RN [address] [place] [address] iCMP Emissions Inspector 12/12/22 01/24/23 documented as of this encounter Additional Source Comments The information contained in this document represents components of the legal health record. It is not the complete legal health record.[facility]
--- OUTSIDE RECORDS SUMMARY | 2025-07-02 12:15 | XMS_ITS | Encounter Summary ---
Author Organization [facility] Address [address] [facility] [address] [place] [address] Phone Care Team Providers Care Mechanical Manufacturing Engineer Name Role Phone Pardeep Du MD Primary Care Provider +[phone]- [phone] Pardeep Du MD Unavailable [phone] Jessie Smith RN Unavailable [phone] Delilah Cervantes DO Primary Care Provider [phone] Kirstin Reyes Primary Care Provide r Encounter Details Date Type Department Care Team (Late st Contact Info) Description 02/28/2022 Procedure Pass [facility] - [address] [place] [address] Social History Tobacco Use Types Packs/Day Years [...] as of this encounter Care Teams Mechanical Manufacturing Engineer Relationship Specialty Start Date End Date Pardeep Du MD [address] [place] [address], 2nd [place] [address] francisco PCP - General Internal Medicine 04/01/19 05/18/24 Delilah Cervantes DO [address] [place] [address] PCP - General Family Medicine 05/19/24 05/02/25 Kirstin Reyes PA NPI: [id number] [place] [address] [place] [address] PCP - General Physician Tile And Mottle Supervisor 05/03/25 Pardeep Du MD [address] [place] [address], 2nd [place] [address] francisco [email or web address] Insurance Assigned Provider 08/08/19 07/06/23 Jessie Smith, RN [address] [place] [address] [email or web address] iCMP Non Destructive Evaluation Manager 12/12/22 01/24/23 documented as of this encounter Additional Source Comments The information contained in this document represents components of the legal health record. It is not the complete legal health record.[facility]
--- OUTSIDE RECORDS SUMMARY | 2025-07-02 12:15 | XMS_ITS | Encounter Summary ---
Author Organization [facility] Address [address] [facility] [address] [place] [address] Phone Care Team Providers Care Seismograph Recorder Name Role Phone Pardeep Du MD Primary Care Provider [phone]- [phone] Pardeep Du MD Unavailable [phone] Jessie Smith RN Unavailable [phone] Delilah Cervantes DO Primary Care Provider [phone] Kirstin Reyes Primary Care Provide r Encounter Details Date Type Department Care Team (Late st Contact Info) Description 10/18/2020 Procedure Pass [facility] - [address] [place] [address] Social History Tobacco Use Types Packs/Day Years [...] education for yourself related to: Learning the Vincentian language? Completing high school, earning a high [...] documented as of this encounter Care Teams Seismograph Recorder Relationship Specialty Start Date End Date Pardeep Du MD [address] [place] [address], 2nd [place] [address] francisco PCP - General Internal Medicine 04/01/19 05/18/24 Delilah Cervantes DO [address] [place] [address] PCP - General Family Medicine 05/19/24 05/02/25 Kirstin Reyes PA [address] [place] [address] [place] [address] PCP - General Physician Muskrat Trapper 05/03/25 Pardeep Du MD [address] [place] [address], 2nd [place] [address] francisco [email or web address] Insurance Assigned Provider 08/08/19 07/06/23 Jessie Smith, RN [address] [place] [address] [email or web address] iCMP Clip Loading Machine Feeder 12/12/22 01/24/23 documented as of this encounter Additional Source Comments The information contained in this document represents components of the legal health record. It is not the complete legal health record.[facility]
--- OUTSIDE RECORDS SUMMARY | 2025-07-02 12:15 | XMS_ITS | Encounter Summary ---
Author Organization [facility] Address [address] [facility] [address] [place] [address] Phone Care Team Providers Care Skein Winder Name Role Phone Pardeep Du MD Primary Care Provider [phone]- [phone] Pardeep Du MD Unavailable [phone] Jessie Smith RN Unavailable [phone] Delilah Cervantes DO Primary Care Provider Kirstin Reyes Primary Care Provide r Encounter Details Date Type Department Care Team (Late st Contact Info) Description 09/16/2019 Ancillary Orders [facility],Outside Imaging 30 [place], [place] [phone] System, Provider Not In, PhD Partners [address] [address] Social History Tobacco Use Types Packs/Day Years [...] education for yourself related to: Learning the Puerto Rican language? Completing high school, earning a high [...] documented as of this encounter Care Teams Skein Winder Relationship Specialty Start Date End Date Pardeep Du MD [address] [place] [address], [address] [place] [address] francisco PCP - General Internal Medicine 04/01/19 05/18/24 Delilah Cervantes DO [address] [place] [address] PCP - General Family Medicine 05/19/24 05/02/25 Kirstin Reyes PA [address] [place] [address] [place] [address] PCP - General Physician Machine Shop Apprentice 05/03/25 Pardeep Du MD [address] [place] [address] francisco Insurance Assigned Provider 08/08/19 07/06/23 Jessie Smith, RN [address] [place] [address] iCMP Technical Specialist Cytology 12/12/22 01/24/23 documented as of this encounter Additional Source Comments The information contained in this document represents components of the legal health record. It is not the complete legal health record.[facility]
--- OUTSIDE RECORDS SUMMARY | 2025-07-02 12:15 | XMS_ITS | Encounter Summary ---
Author Organization [facility] Address [address] [facility] [address] [place] [address] Phone Care Team Providers Care Sizing End Bander Name Role Phone Pardeep Du MD Primary Care Provider +[phone]- [phone] Pardeep Du MD Unavailable [phone] Jessie Smith RN Unavailable [phone] Delilah Cervantes DO Primary Care Provider [phone] Kirstin Reyes Primary Care Provide r Encounter Details Date Type Department Care Team (Late st Contact Info) Description 09/16/2019 Ancillary Orders [facility],Outside Imaging 30 [place], [place] [phone] System, Provider Not In, PhD Partners [address] [address] Social History Tobacco Use Types Packs/Day Years [...] education for yourself related to: Learning the Dutch language? Completing high school, earning a high [...] documented as of this encounter Care Teams Sizing End Bander Relationship Specialty Start Date End Date Pardeep Du MD [address] [place] [address], [address] [place] [address] francisco PCP - General Internal Medicine 04/01/19 05/18/24 Delilah Cervantes DO [address] [place] [address] PCP - General Family Medicine 05/19/24 05/02/25 Kirstin Reyes PA [address] [place] [address] [place] [address] PCP - General Physician Financial Business Analyst 05/03/25 Pardeep Du MD [address] [place] [address] francisco Insurance Assigned Provider 08/08/19 07/06/23 Jessie Smith, RN [address] [place] [address] iCMP Communications Superintendent 12/12/22 01/24/23 documented as of this encounter Additional Source Comments The information contained in this document represents components of the legal health record. It is not the complete legal health record.[facility]
--- OUTSIDE RECORDS SUMMARY | 2025-07-02 12:15 | XMS_ITS | Encounter Summary ---
Author Organization [facility] Address [address] [facility] [address] [place] [address] Phone Care Team Providers Care Computing Systems Mechanic Name Role Phone Pardeep Du MD Primary Care Provider [phone]- [phone] Pardeep Du MD Unavailable [phone] Jessie Smith RN Unavailable [phone] Delilah Cervantes DO Primary Care Provider Kirstin Reyes Primary Care Provide r Encounter Details Date Type Department Care Team (Late st Contact Info) Description 12/17/2022 Procedure Pass [facility], [address] [place] [address] Social History Tobacco Use Types Packs/Day Years [...] education for yourself related to: Learning the Frisian language? Completing high school, earning a high [...] documented as of this encounter Care Teams Computing Systems Mechanic Relationship Specialty Start Date End Date Pardeep Du MD [address] [place] [address], 2nd [place] [address] francisco PCP - General Internal Medicine 04/01/19 05/18/24 Delilah Cervantes DO [address] [place] [address] PCP - General Family Medicine 05/19/24 05/02/25 Kirstin Reyes PA [address] [place] [address] [place] [address] PCP - General Physician Accountant Tax 05/03/25 Pardeep Du MD [address] [place] [address], 2nd [place] [address] francisco [email or web address] Insurance Assigned Provider 08/08/19 07/06/23 Jessie Smith, RN [address] [place] [address] [email or web address] iCMP Export Freight Specialist 12/12/22 01/24/23 documented as of this encounter Additional Source Comments The information contained in this document represents components of the legal health record. It is not the complete legal health record.[facility]
--- OUTSIDE RECORDS SUMMARY | 2025-07-02 12:15 | XMS_ITS | Encounter Summary ---
Author Organization [facility] Address [address] [facility] [address] [place] [address] Phone Care Team Providers Care Course Instructor Name Role Phone Pardeep Du MD Primary Care Provider Pardeep Du MD Unavailable Jessie Smith RN Unavailable [phone] Dleilah Cervantes DO Primary Care Provider Kirstin Reyes Primary Care Provide r Encounter Details Date Type Department Care Team (Late st Contact Info) Description 05/04/2019 Ancillary Orders [facility] [address] [place] [address] [place] [address] Andrew Alberto MD [address] [place] [address] [facility] [place] [address] [email or web address] Pain in both knees, unspecified chronicity Social [...] education for yourself related to: Learning the Yemeni language? Completing high school, earning a high [...] to medium sized joint effusion. POS - [id number] Narrative 05/04/2019 1:28 PM EDT Left knee [...] to medium sized joint effusion. POS - [id number] Andrew Alberto MD IMG XR LOWER EXTREMITY F inal Result * XR KNEE 4 OR MORE VIEWS (RIGHT) (05/04/2019 1:07 PM EDT) Anatomical Region Laterality Modality Knee Right Radiographic Jesika ging 05/04/2019 1:27 PM EDT Impressions 05/04/2019 1:28 PM EDT Moderate medial compartment osteoarthritis. No erosive changes or bony lesion seen. Prominent joint effusion. POS - [id number] Narrative 05/04/2019 1:28 PM EDT Right knee [...] bonylesion seen. Prominent joint effusion. POS - [id number] Andrew Alberto MD IMG XR LOWER EXTREMITY [...] documented as of this encounter Care Teams Course Instructor Relationship Specialty Start Date End Date Pardeep Du MD [address] [place] [address], [address] [place] [address] francisco PCP - General Internal Medicine 04/01/19 05/18/24 Delilah Cervantes DO [address] [place] [address] PCP - General Family Medicine 05/19/24 05/02/25 Kirstin Reyes PA [address] [place] [address] PCP - General Physician Head Filter Press Tender 05/03/25 Pardeep Du MD [address] [place] [address] francisco Insurance Assigned Provider 08/08/19 07/06/23 Jessie Smith, RN [address] [place] [address] iCMP Developing Machine Tender 12/12/22 01/24/23 documented as of this encounter Additional Source Comments The information contained in this document represents components of the legal health record. It is not the complete legal health record.[facility]
--- OUTSIDE RECORDS SUMMARY | 2025-07-02 12:15 | XMS_ITS | Encounter Summary ---
Author Organization [facility] Address [address] [facility] [address] [place] [address] Phone Care Team Providers Care Lawn Service Supervisor Name Role Phone Pardeep Du MD Primary Care Provider [phone]- [phone] Pardeep Du MD Unavailable [phone] Jessie Smith RN Unavailable [phone] Delilah Cervantes DO Primary Care Provider Kirstin Reyes Primary Care Provide r Encounter Details Date Type Department Care Team (Late st Contact Info) Description 09/16/2019 Ancillary Orders [facility],Outside Imaging 30 [place], [place] [phone] System, Provider Not In, PhD Partners [address] [address] Social History Tobacco Use Types Packs/Day Years [...] education for yourself related to: Learning the American language? Completing high school, earning a high [...] documented as of this encounter Care Teams Lawn Service Supervisor Relationship Specialty Start Date End Date Pardeep Du MD [address] [place] [address], [address] [place] [address] francisco PCP - General Internal Medicine 04/01/19 05/18/24 Delilah Cervantes DO [address] [place] [address] PCP - General Family Medicine 05/19/24 05/02/25 Kirstin Reyes PA [address] [place] [address] [place] [address] PCP - General Physician Alarm Field Technician 05/03/25 Pardeep Du MD [address] [place] [address] francisco Insurance Assigned Provider 08/08/19 07/06/23 Jessie Smith, RN [address] [place] [address] iCMP Business Solutions Consultant 12/12/22 01/24/23 documented as of this encounter Additional Source Comments The information contained in this document represents components of the legal health record. It is not the complete legal health record.[facility]
--- OUTSIDE RECORDS SUMMARY | 2025-07-02 12:15 | XMS_ITS | Encounter Summary ---
Author Organization [facility] Address [address] [facility] [address] [place] [address] Phone Care Team Providers Care Chemical Cell Changer Name Role Phone Pardeep Du MD Primary Care Provider Pardeep Du MD Unavailable [phone] Jessie Smith RN Unavailable [phone] Delilah Cervantes DO Primary Care Provider [phone] Kirstin Reyes Primary Care Provide r Encounter Details Date Type Department Care Team (Late st Contact Info) Description 10/18/2020 Procedure Pass [facility] - [address] [place] [address] Social History Tobacco Use Types Packs/Day Years [...] education for yourself related to: Learning the Macanese language? Completing high school, earning a high [...] documented as of this encounter Care Teams Chemical Cell Changer Relationship Specialty Start Date End Date Pardeep Du MD [address] [place] [address], 2nd [place] [address] francisco PCP - General Internal Medicine 04/01/19 05/18/24 Delilah Cervantes DO [address] [place] [address] PCP - General Family Medicine 05/19/24 05/02/25 Kirstin Reyes PA [address] [place] [address] [place] [address] PCP - General Physician Pesticide Use Medical Coordinator 05/03/25 Pardeep Du MD [address] [place] [address], 2nd [place] [address] francisco [email or web address] Insurance Assigned Provider 08/08/19 07/06/23 Jessie Smith, RN [address] [place] [address] [email or web address] iCMP Lamp Cleaner 12/12/22 01/24/23 documented as of this encounter Additional Source Comments The information contained in this document represents components of the legal health record. It is not the complete legal health record.[facility]
--- OUTSIDE RECORDS SUMMARY | 2025-07-02 12:15 | XMS_ITS | Encounter Summary ---
Author Organization [facility] Address [address] [facility] [address] [place] [address] Phone Care Team Providers Care Hand Lacer Name Role Phone Pardeep Du MD Primary Care Provider [phone] Pardeep Du MD Unavailable [phone] Jessie Smith RN Unavailable [phone] Delilah Cervantes DO Primary Care Provider [phone] Kirstin Reyes Primary Care Provide r Encounter Details Date Type Department Care Team (Late st Contact Info) Description 02/28/2022 Procedure Pass [facility] - [address] [place] [address] Social History Tobacco Use Types Packs/Day Years [...] education for yourself related to: Learning the Kazakh language? Completing high school, earning a high [...] Date End Date Pardeep Du MD [address] [place] [address], 2nd [place] [address] francisco PCP - General Internal Medicine 04/01/19 05/18/24 Delilah Cervantes DO [address] [place] [address] PCP - General Family Medicine 05/19/24 05/02/25 Kirstin Reyes PA [address] [place] [address] [place] [address] PCP - General Physician Model And Mold Maker Plaster 05/03/25 Pardeep Du MD [address] [place] [address], 2nd [place] [address] francisco [email or web address] Insurance Assigned Provider 08/08/19 07/06/23 Jessie Smith, RN [address] [place] [address] [email or web address] iCMP Post Tensioning Ironworker 12/12/22 01/24/23 documented as of this encounter Additional Source Comments The information contained in this document represents components of the legal health record. It is not the complete legal health record.[facility]
--- OUTSIDE RECORDS SUMMARY | 2025-07-02 12:15 | XMS_ITS | Encounter Summary ---
Author Organization [facility] Address [address] [facility] [address] [place] [address] Phone Care Team Providers Care Shed Workers Supervisor Name Role Phone Pardeep Du MD Primary Care Provider [phone] Pardeep Du MD Unavailable [phone] Jessie Smith RN Unavailable [phone] Delilah Cervantes DO Primary Care Provider Kirstin Reyes Primary Care Provide r Encounter Details Date Type Department Care Team (Late st Contact Info) Description 09/16/2019 Ancillary Orders [facility],Outside Imaging 30 [place], [place] [id number] System, Provider Not In, PhD Partners [address] [address] Social History Tobacco Use Types Packs/Day Years [...] education for yourself related to: Learning the [place] Citizen language? Completing high school, earning a high [...] documented as of this encounter Care Teams Shed Workers Supervisor Relationship Specialty Start Date End Date Pardeep Du MD [address] [place] [address], [address] [place] [address] francisco PCP - General Internal Medicine 04/01/19 05/18/24 Delilah Cervantes DO [address] [place] [address] PCP - General Family Medicine 05/19/24 05/02/25 Kirstin Reyes PA [address] [place] [address] [place] [address] PCP - General Physician Framing Machine Tender 05/03/25 Pardeep Du MD [address] [place] [address] francisco Insurance Assigned Provider 08/08/19 07/06/23 Jessie Smith, RN [address] [place] [address] iCMP Sr Solutions Consultant 12/12/22 01/24/23 documented as of this encounter Additional Source Comments The information contained in this document represents components of the legal health record. It is not the complete legal health record.[facility]
--- OUTSIDE RECORDS SUMMARY | 2025-07-02 12:16 | XMS_ITS | Clinical Summary ---
Author Organization [employer] Address [address] [facility] 7t [place] [address] Care Team Providers Care Barrel Racer Name Role Phone Unavailable Primary Care Provider [...] patient's age to complete this topic Insurance [facility]
--- OUTSIDE RECORDS SUMMARY | 2025-07-02 12:16 | XMS_ITS | Encounter Summary ---
Author Organization [facility] Address [address] [facility] [address] [place] [address] Phone Care Team Providers Care Executive Account Manager Name Role Phone Pardeep Du MD Primary Care Provider Pardeep Du MD Unavailable [phone] Jessie Smith RN Unavailable Delilah Cervantes DO Primary Care Provider Kirstin Reyse Primary Care Provide r Encounter Details Date Type Department Care Team (Late st Contact Info) Description 08/07/2021 Procedure Pass [facility] Ct Scan - [address] [address] Social History Tobacco Use Types Packs/Day Years [...] education for yourself related to: Learning the Tuvaluan language? Completing high school, earning a high [...] 7:48 PM EDT Aniyah Price RN * Paradox Suicide Severity Rating Scale (Screener/Recent Self-Report) Question [...] documented as of this encounter Care Teams Executive Account Manager Relationship Specialty Start Date End Date Pardeep Du MD [address] [place] [address] [email or web address] PCP - General Internal Medicine 04/01/19 05/18/24 Delilah Cervantes DO [address] [place] [address] PCP - General Family Medicine 05/19/24 05/02/25 Kirstin Reyes PA [address] [place] [address] PCP - General Physician Crawler Crane Operator 05/03/25 Pardeep Du MD [address] [place] [address] francisco Insurance Assigned Provider 08/08/19 07/06/23 Jessie Smith, RN [address] [place] [address] [email or web address] iCMP Die Welder 12/12/22 01/24/23 documented as of this encounter Additional Source Comments The information contained in this document represents components of the legal health record. It is not the complete legal health record.[facility]
--- OUTSIDE RECORDS SUMMARY | 2025-07-02 12:16 | XMS_ITS | Encounter Summary ---
Author Organization [facility] Address [address] [facility] [address] [place] [address] Phone Care Team Providers Care Watch Train Assembler Name Role Phone Pardeep Du MD Primary Care Provider Pardeep Du MD Unavailable [phone] Jessie Smith RN Unavailable [phone] Delilah Cervantes DO Primary Care Provider Kirstin Reyes Primary Care Provide r Encounter Details Date Type Department Care Team (Late st Contact Info) Description 07/23/2019 Ancillary Orders Non-Invasive Cardiology 30 [place] [address] Pardeep Du MD [address] [facility], 2nd [place] [address] francisco [email or web address] Chest pain, unspecified type Social History Tobacco [...] education for yourself related to: Learning the Vietnamese language? Completing high school, earning a high [...] AM EDT) Max BP Systolic 130 mmHg [facility] Max BP Diastolic 70 mmHg [facility] Max HR 88 BPM [facility] Resting HR 57 BPM [facility] Resting BP Systolic 126 mmHg [facility] Resting BP Diastolic 78 mmHg [facility] Peak METS 1.0 METS [facility] Peak HR 87 BPM [facility] Anatomical Region Laterality Modality Heart Other [...] documented as of this encounter Care Teams Watch Train Assembler Relationship Specialty Start Date End Date Pardeep Du MD [address] [place] [address], 2nd [place] [address] francisco [email or web address] PCP - General Internal Medicine 04/01/19 05/18/24 Delilah Cervantes DO [address] [place] [address] PCP - General Family Medicine 05/19/24 05/02/25 Kirstin Reyes PA [address] [place] [address] PCP - General Physician School Of Nursing Director 05/03/25 Pardeep Du MD [address] [place] [address], 2nd [place] [address] francisco Insurance Assigned Provider 08/08/19 07/06/23 Jessie Smith, RN [address] [place] [address] [email or web address] iCMP Flagstone Layer 12/12/22 01/24/23 documented as of this encounter Additional Source Comments The information contained in this document represents components of the legal health record. It is not the complete legal health record.[facility]
--- OUTSIDE RECORDS SUMMARY | 2025-07-02 12:16 | XMS_ITS | Encounter Summary ---
Author Organization [facility] Address [address] [facility] [address] [place] [address] Phone Care Team Providers Care Indoor Landscape Architect Name Role Phone Pardeep Du MD Primary Care Provider [phone] Pardeep Du MD Unavailable [phone] Jessie Smith RN Unavailable [phone] Delilah Cervantes DO Primary Care Provider Kirstin Reyes Primary Care Provide r Encounter Details Date Type Department Care Team (Late st Contact Info) Description 12/09/2022 Procedure Pass [facility] 30 [place] [address] Social History Tobacco Use Types Packs/Day Years [...] education for yourself related to: Learning the Marshallese language? Completing high school, earning a high [...] documented as of this encounter Care Teams Indoor Landscape Architect Relationship Specialty Start Date End Date Pardeep Du MD [address] [place] [address], 2nd [place] [address] francisco PCP - General Internal Medicine 04/01/19 05/18/24 Delilah Cervantes DO [address] [place] [address] PCP - General Family Medicine 05/19/24 05/02/25 Kirstin Reyes PA [address] [place] [address] [place] [address] PCP - General Physician Blue Prints Trimmer 05/03/25 Pardeep Du MD [address] [place] [address], 2nd [place] [address] francisco [email or web address] Insurance Assigned Provider 08/08/19 07/06/23 Jessie Smith, RN [address] [place] [address] [email or web address] iCMP Laboratory Chemical Assistant 12/12/22 01/24/23 documented as of this encounter Additional Source Comments The information contained in this document represents components of the legal health record. It is not the complete legal health record.[facility]
--- OUTSIDE RECORDS SUMMARY | 2025-07-02 12:16 | XMS_ITS | Encounter Summary ---
Author Organization [facility] Address [address] [facility] [address] [place] [address] Phone Care Team Providers Care Cut Roll Machine Operator Name Role Phone Pardeep Du MD Primary Care Provider Pardeep Du MD Unavailable [phone] Jessie Smith RN Unavailable [phone] Delilah Cervantes DO Primary Care Provider Kirstin Reyes Primary Care Provide r Encounter Details Date Type Department Care Team (Late st Contact Info) Description 04/06/2022 Procedure Pass [facility] Endoscopy Admitting Dept Virtual Department 30 [place], [place] [id number] Social History Tobacco Use Types Packs/Day Years [...] education for yourself related to: Learning the Romanian language? Completing high school, earning a high [...] documented as of this encounter Care Teams Cut Roll Machine Operator Relationship Specialty Start Date End Date Pardeep Du MD [address] [place] [address], 2nd [place] [address] francisco PCP - General Internal Medicine 04/01/19 05/18/24 Delilah Cervantes DO [address] [place] [address] PCP - General Family Medicine 05/19/24 05/02/25 Kirstin Reyes PA [address] [place] [address] [place] [address] PCP - General Physician Pencil Maker 05/03/25 Pardeep Du MD [address] [place] [address], 2nd [place] [address] francisco [email or web address] Insurance Assigned Provider 08/08/19 07/06/23 Jessie Smith, RN [address] [place] [address] [email or web address] iCMP Shell Reprint Operator 12/12/22 01/24/23 documented as of this encounter Additional Source Comments The information contained in this document represents components of the legal health record. It is not the complete legal health record.[facility]
--- OUTSIDE RECORDS SUMMARY | 2025-07-02 12:16 | XMS_ITS | Encounter Summary ---
Author Organization [facility] Address [address] [facility] [address] [place] [address] Phone Care Team Providers Care Ppap Coordinator Name Role Phone Pardeep Du MD Primary Care Provider Pardeep Du MD Unavailable [phone] Jessie Smith RN Unavailable [phone] Delilah Cervantes DO Primary Care Provider Kirstin Reyes Primary Care Provide r Encounter Details Date Type Department Care Team (Late st Contact Info) Description 10/04/2021 Procedure Pass [facility], [facility] 30 [place] [address] Social History Tobacco Use Types Packs/Day Years [...] education for yourself related to: Learning the Malagasy language? Completing high school, earning a high [...] documented as of this encounter Care Teams Ppap Coordinator Relationship Specialty Start Date End Date Pardeep Du MD [address] [place] [address], 2nd [place] [address] francisco PCP - General Internal Medicine 04/01/19 05/18/24 Delilah Cervantes DO [address] [place] [address] PCP - General Family Medicine 05/19/24 05/02/25 Kirstin Reyes PA [address] [place] [address] [place] [address] PCP - General Physician Stratigrapher 05/03/25 Pardeep Du MD [address] [place] [address], 2nd [place] [address] francisco [email or web address] Insurance Assigned Provider 08/08/19 07/06/23 Jessie Smith, RN [address] [place] [address] [email or web address] iCMP Director Global Sales 12/12/22 01/24/23 documented as of this encounter Additional Source Comments The information contained in this document represents components of the legal health record. It is not the complete legal health record.[facility]
--- OUTSIDE RECORDS SUMMARY | 2025-07-02 12:16 | XMS_ITS | Encounter Summary ---
Author Organization [facility] Address [address] [facility] [address] [place] [address] Phone Care Team Providers Care Paste Up Artist Name Role Phone Pardeep Du MD Primary Care Provider Delilah Cervantes DO Primary Care Provider Kirstin Reyes Primary Care Provide r Encounter Details Date Type Department Care Team (Late st Contact Info) Description 11/29/2023 Procedure Pass [facility], [address] [address] Social History Tobacco Use Types Packs/Day Years [...] documented as of this encounter Care Teams Paste Up Artist Relationship Specialty Start Date End Date Pardeep Du MD [address] [place] [address], 2nd [place] [address] francisco PCP - General Internal Medicine 04/01/19 05/18/24 Delilah Cervantes DO [address] [place] [address] PCP - General Family Medicine 05/19/24 05/02/25 Kirstin Reyes PA [address] [place] [address] [place] [address] PCP - General Physician Gameplay Programmer 05/03/25 documented as of this encounter Additional Source Comments The information contained in this document represents components of the legal health record. It is not the complete legal health record.[facility]
--- OUTSIDE RECORDS SUMMARY | 2025-07-02 12:16 | XMS_ITS | Encounter Summary ---
Author Organization [facility] Address [address] [facility] [address] [place] [address] Phone Care Team Providers Care Director On Air Name Role Phone Pardeep Du MD Primary Care Provider Pardeep Du MD Unavailable [phone] Jessie Smith RN Unavailable Delilah Cervantes DO Primary Care Provider Kirstin Reyes Primary Care Provide r Encounter Details Date Type Department Care Team (Late st Contact Info) Description 03/05/2022 Procedure Pass [facility], Ct Scan - [address] [address] Social History Tobacco Use Types Packs/Day Years [...] education for yourself related to: Learning the [place] Verde[place] language? Completing high school, earning a high [...] 1:02 PM EDT Drake Cha, MEGHAN * [place] Suicide Severity Rating Scale (Screener/Recent Self-Report) Question [...] documented as of this encounter Care Teams Director On Air Relationship Specialty Start Date End Date Pardeep Du MD [address] [place] [address], 2nd [place] [address] francisco PCP - General Internal Medicine 04/01/19 05/18/24 Delilah Cervantes DO [address] [place] [address] PCP - General Family Medicine 05/19/24 05/02/25 Kirstin Reyes PA [address] [place] [address] PCP - General Physician Armament Repairer 05/03/25 Pardeep Du MD [address] [place] [address], [address] [place] [address] francisco [email or web address] Insurance Assigned Provider 08/08/19 07/06/23 Jessie Smith, RN [address] [place] [address] [email or web address] iCMP Director Of Slot Operations 12/12/22 01/24/23 documented as of this encounter Additional Source Comments The information contained in this document represents components of the legal health record. It is not the complete legal health record.[facility]
--- OUTSIDE RECORDS SUMMARY | 2025-07-02 12:16 | XMS_ITS | Encounter Summary ---
Author Organization [facility] Address [address] [facility] [address] [place] [address] Phone Care Team Providers Care Antisubmarine Weapons Officer Name Role Phone Pardeep Du MD Primary Care Provider [phone] Pardeep Du MD Unavailable [phone] Jessie Smith RN Unavailable [phone] Delilah Cervantes DO Primary Care Provider Kirstin Reyes Primary Care Provide r Encounter Details Date Type Department Care Team (Late st Contact Info) Description 05/10/2020 Procedure Pass [facility], [address] [place] [address] Social History Tobacco Use Types Packs/Day Years [...] education for yourself related to: Learning the Northern Irish language? Completing high school, earning a high [...] documented as of this encounter Care Teams Antisubmarine Weapons Officer Relationship Specialty Start Date End Date Pardeep Du MD [address] [place] [address], [address] [place] [address] francisco PCP - General Internal Medicine 04/01/19 05/18/24 Delilah Cervantes DO [address] [place] [address] PCP - General Family Medicine 05/19/24 05/02/25 Kirstin Reyes PA [address] [place] [address] [place] [address] PCP - General Physician Stand Grinder 05/03/25 Pardeep Du MD [address] [place] [address], [address] [place] [address] francisco [email or web address] Insurance Assigned Provider 08/08/19 07/06/23 Jessie Smith, RN [address] [place] [address] iCMP Basket Mender 12/12/22 01/24/23 documented as of this encounter Additional Source Comments The information contained in this document represents components of the legal health record. It is not the complete legal health record.[facility]
--- OUTSIDE RECORDS SUMMARY | 2025-07-02 12:16 | XMS_ITS | Encounter Summary ---
Author Organization [facility] Address [address] [facility] [address] [place] [address] Phone Care Team Providers Care Social Service Liaison Name Role Phone Pradeep Du MD Primary Care Provider [phone] Delilah Cervantes DO Primary Care Provider Kirstin Reyes Primary Care Provide r Reason for Referral * MRI/CAT Scan - Closed Specialty Diagnoses / Procedures Referred By Madhav carias Referred To Contact Radiology Diagnoses LLQ abdominal pain Constipation, unspecified constipation type Procedures CT Abdomen/Pelvis CHG CT SCAN,ABDOMENT AND PELVIS,W CONTRAST Gilda Carranza PA-C Phone: tel: fax: [email or web address] Referral ID Status Reason Start Date Expiration Date Visits Re quested Visits Authorized [id number] Closed 07/07/2024 09/05/2024 1 1 Encounter Details Date Type Department Care Team (Latest Contact Info) Description 04/06/2024 Transcribe Orders Virtual Department 30 [place] [address] Gilda Carranza PA-C [address] [place] [address] LLQ abdominal pain (Primary Dx); Constipation, unspecified [...] llq abdomen pain, [facility] lower [facility] as well as constipation [...] as of this encounter Care Teams Social Service Liaison Relationship Specialty Start Date End Date Pardeep Du MD [address] [place] [address], 2nd [place] [address] francisco [email or web address] PCP - General Internal Medicine 04/01/19 05/18/24 Delilah Cervantes DO [address] [place] [address] PCP - General Family Medicine 05/19/24 05/02/25 Kirstin Reyes PA [address] [place] [address] [place] [address] PCP - General Physician Polisher Numeral 05/03/25 documented as of this encounter Additional Source Comments The information contained in this document represents components of the legal health record. It is not the complete legal health record.[facility]
--- OUTSIDE RECORDS SUMMARY | 2025-07-02 12:16 | XMS_ITS | Encounter Summary ---
Author Organization [facility] Address [address] [facility] [address] [place] [address] Phone Care Team Providers Care Senior Windows Systems Engineer Name Role Phone Pardeep Du MD Primary Care Provider [phone] Pardeep Du MD Unavailable [phone] Jessie Smith RN Unavailable [phone] Delilah Cervantes DO Primary Care Provider [phone] Kirstin Reyes Primary Care Provide r Encounter Details Date Type Department Care Team (Late st Contact Info) Description 06/30/2019 Procedure Pass [facility], [address] [place] [address] Social History Tobacco Use Types Packs/Day Years [...] education for yourself related to: Learning the Tajik language? Completing high school, earning a high [...] as of this encounter Care Teams Senior Windows Systems Engineer Relationship Specialty Start Date End Date Pardeep Du MD [address] [place] [address], 2nd [place] [address] PCP - General Internal Medicine 04/01/19 05/18/24 Delilah Cervantes DO [address] [place] [address] PCP - General Family Medicine 05/19/24 05/02/25 Kirstin Reyes PA [address] [place] [address] [place] [address] PCP - General Physician Snake Charmer 05/03/25 Pardeep Du MD [address] [place] [address], 2nd [place] [address] francisco [email or web address] Insurance Assigned Provider 08/08/19 07/06/23 Jessie Smith, RN [address] [place] [address] [email or web address] iCMP Sales And Merchandising Associate 12/12/22 01/24/23 documented as of this encounter Additional Source Comments The information contained in this document represents components of the legal health record. It is not the complete legal health record.[facility]
--- OUTSIDE RECORDS SUMMARY | 2025-07-02 12:16 | XMS_ITS | Encounter Summary ---
Author Organization [facility] Address [address] [facility] [address] [place] [address] Phone Care Team Providers Care Conche Operator Name Role Phone Pardeep Du MD Primary Care Provider Pardeep Du MD Unavailable [phone] Jessie Smith RN Unavailable [phone] Delilah Cervantes DO Primary Care Provider [phone] Kirstin Reyes Primary Care Provide r Encounter Details Date Type Department Care Team (Late st Contact Info) Description 09/13/2021 Transcribe Orders Virtual Department 30 [place] [address] Pardeep Du MD [address] [facility], 2nd [place] [address] francisco Social History Tobacco Use Types Packs/Day [...] education for yourself related to: Learning the Setswana language? Completing high school, earning a high [...] documented as of this encounter Care Teams Conche Operator Relationship Specialty Start Date End Date Pardeep Du MD [address] [place] [address], 2nd [place] [address] francisco PCP - General Internal Medicine 04/01/19 05/18/24 Delilah Cervantes DO [address] [place] [address] PCP - General Family Medicine 05/19/24 05/02/25 Kirstin Reyes PA [address] [place] [address] PCP - General Physician Patient Service Associate 05/03/25 Pardeep Du MD [address] [place] [address], 2nd [place] [address] francisco Insurance Assigned Provider 08/08/19 07/06/23 Jessie Smith, RN [address] [place] [address] [email or web address] iCMP Esl Professor 12/12/22 01/24/23 documented as of this encounter Additional Source Comments The information contained in this document represents components of the legal health record. It is not the complete legal health record.[facility]
--- OUTSIDE RECORDS SUMMARY | 2025-07-02 12:16 | XMS_ITS | Encounter Summary ---
Author Organization [facility] Address [address] [facility] [address] [place] [address] Phone Care Team Providers Care Welfare Manager Name Role Phone Helen Delilah Primary Care Provider [phone] Kirstin Reyes Primary Care Provide r Encounter Details Date Type Department Care Team (Latest Contact Info) Description 08/06/2024 Transcribe Orders Virtual Department 30 [place] [address] Gilda Carranza PA-C [address] [place] [address] [email or web address] Lesion of ovary (Primary Dx) Social History [...] documented as of this encounter Care Teams Welfare Manager Relationship Specialty Start Date End Date Delilah Cervantes DO [address] [place] [address] [place] [address] PCP - General Family Medicine 05/19/24 05/02/25 Kirstin Reyes PA [address] [place] [address] [place] [address] PCP - General Physician Rn Visiting 05/03/25 documented as of this encounter Additional Source Comments The information contained in this document represents components of the legal health record. It is not the complete legal health record.[facility]
--- OUTSIDE RECORDS SUMMARY | 2025-07-02 12:16 | XMS_ITS | Encounter Summary ---
Author Organization [facility] Address [address] [facility] [address] [place] [address] Phone Care Team Providers Care Multimedia Journalist Name Role Phone Pardeep Du MD Primary Care Provider [phone] Delilah Cervantes DO Primary Care Provider Kirstin Reyes Primary Care Provide r Encounter Details Date Type Department Care Team (Late st Contact Info) Description 04/06/2024 Procedure Pass [facility], Ct Scan - [address] [id number] Social History Tobacco Use Types Packs/Day Years [...] documented as of this encounter Care Teams Multimedia Journalist Relationship Specialty Start Date End Date Pardeep Du MD [address] [place] [address], 2nd [place] [address] francisco [email or web address] PCP - General Internal Medicine 04/01/19 05/18/24 Delilah Cervantes DO [address] [place] [address] PCP - General Family Medicine 05/19/24 05/02/25 Kirstin Reyes PA [address] [place] [address] [place] [address] PCP - General Physician Photographic Technician 05/03/25 documented as of this encounter Additional Source Comments The information contained in this document represents components of the legal health record. It is not the complete legal health record.[facility]
--- OUTSIDE RECORDS SUMMARY | 2025-07-02 12:16 | XMS_ITS | Encounter Summary ---
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 Derangement of anterior horn of lateral [...] education for yourself related to: Learning the Serbian language? Completing high school, earning a high [...] documented as of this encounter Care Teams Substitute Crossing Guard Relationship Specialty Start Date End Date Pardeep Du MD [address] [place] [address], [address] [place] [address] francisco PCP - General Internal Medicine 04/01/19 05/18/24 Delilah Cervantes DO [address] [place] [address] PCP - General Family Medicine 05/19/24 05/02/25 Kirstin Reyes PA [address] [place] [address] [place] [address] PCP - General Physician Steam Shovel Operating Engineer 05/03/25 Pardeep Du MD [address] [place] [address], [address] [place] [address] francisco Insurance Assigned Provider 08/08/19 07/06/23 Jessie Smith, MEGHAN [address] [place] [address] [email or web address] iCMP Utility Pipe Layer 12/12/22 01/24/23 documented as of this encounter Additional Source Comments The information contained in this document represents components of the legal health record. It is not the complete legal health record.[facility]
--- OUTSIDE RECORDS SUMMARY | 2025-07-02 12:16 | XMS_ITS | Encounter Summary ---
Author Organization [facility] Address [address] [place] [address] Phone Care Team Providers Care Manager Administrative Name Role Phone Pardeep Du MD Primary Care Provider [phone] Pardeep Du MD Unavailable [phone] Jessie Smith RN Unavailable [phone] Delilah Cervantes DO Primary Care Provider Kirstin Reyes Primary Care Provide r Encounter Details Date Type Department Care Team (Late st Contact Info) Description 06/02/2019 Procedure Pass [facility], [address] [place] [address] Social History Tobacco Use Types Packs/Day Years [...] as of this encounter Care Teams Manager Administrative Relationship Specialty Start Date End Date Pardeep Du MD [address] [place] [address], 2nd [place] [address] francisco [email or web address] PCP - General Internal Medicine 04/01/19 05/18/24 Delilah Cervantes DO [address] [place] [address] PCP - General Family Medicine 05/19/24 05/02/25 Kirstin Reyes PA [address] [place] [address] [place] [address] PCP - General Physician Event Specialist Product Demonstrator 05/03/25 Pardeep Du MD [address] [place] [address], 2nd [place] [address] francisco [email or web address] Insurance Assigned Provider 08/08/19 07/06/23 Jessie Smith, RN [address] [place] [phone] [email or web address] iCMP Television Engineering Teacher 12/12/22 01/24/23 documented as of this encounter Additional Source Comments The information contained in this document represents components of the legal health record. It is not the complete legal health record.[facility]
--- OUTSIDE RECORDS SUMMARY | 2025-07-02 12:17 | XMS_ITS | Encounter Summary ---
Author Organization [facility] Address [address] [place] [address] Phone Care Team Providers Care Business Technology Professor Name Role Phone Pardeep Du MD Primary Care Provider Pardeep Du MD Unavailable Delilah Cervantes DO Primary Care Provider Kirstin Reyes Primary Care Provide r Encounter Details Date Type Department Care Team (Late st Contact Info) Description 05/06/2023 Ancillary Orders [facility] [address] [place] [address] [place] [address] Pardeep Du MD [address] [facility], 2nd [place] [address] francisco [email or web address] Abnormal finding on mammography Social History Tobacco [...] documented as of this encounter Care Teams Business Technology Professor Relationship Specialty Start Date End Date Pardeep Du MD [address] [place] [address], 2nd [place] [address] francisco PCP - General Internal Medicine 04/01/19 05/18/24 Delilah Cervantes DO [address] [place] [address] PCP - General Family Medicine 05/19/24 05/02/25 Kirstin Reyes PA [address] [place] [address] [place] [address] PCP - General Physician Business Line Manager 05/03/25 Pardeep Du MD [address] [place] [address], 2nd [place] [address] francisco [email or web address] Insurance Assigned Provider 08/08/19 07/06/23 documented as of this encounter Additional Source Comments The information contained in this document represents components of the legal health record. It is not the complete legal health record.[facility]
--- OUTSIDE RECORDS SUMMARY | 2025-07-02 12:17 | XMS_ITS | Encounter Summary ---
Author Organization [facility] Address [address] [facility] [address] [place] [address] Phone Care Team Providers Care Spring Tacker Name Role Phone Pardeep Du MD Primary Care Provider Pardeep Du MD Unavailable [phone] Jessie Smith RN Unavailable [phone] Delilah Cervantes DO Primary Care Provider [phone] Kirstin Reyes Primary Care Provide r Encounter Details Date Type Department Care Team (Late st Contact Info) Description 06/20/2022 Procedure Pass [place] Admitting Dept - Virtual Department 30 [place] [address] Social History Tobacco Use Types Packs/Day Years [...] education for yourself related to: Learning the Omani language? Completing high school, earning a high [...] documented as of this encounter Care Teams Spring Tacker Relationship Specialty Start Date End Date Pardeep Du MD [address] [place] [address], 2nd [place] [address] francisco PCP - General Internal Medicine 04/01/19 05/18/24 Delilah Cervantes DO [address] [place] [address] PCP - General Family Medicine 05/19/24 05/02/25 Kirstin Reyes PA [address] [place] [address] [place] [address] PCP - General Physician Banking Management Consulting Manager 05/03/25 Pardeep Du MD [address] [place] [address], 2nd [place] [address] francisco [email or web address] Insurance Assigned Provider 08/08/19 07/06/23 Jessie Smith, RN [address] [place] [address] [email or web address] iCMP Bicycle Repairer 12/12/22 01/24/23 documented as of this encounter Additional Source Comments The information contained in this document represents components of the legal health record. It is not the complete legal health record.[facility]
--- OUTSIDE RECORDS SUMMARY | 2025-07-02 12:17 | XMS_ITS | Clinical Summary ---
Author Organization [facility] Address [address] [facility] [facility] [address] [place] [address] Phone Care Team Providers Care Sex Crimes Detective Name Role Phone Kirstin Reyes Primary Care [...] would like to switch her doctors to [facility]. Referral placed. Assessment & Plan (12/30/2023 12:22 [...] 4:55 PM EST): This is a 52-year-old Swedish-speaking woman who I saw using a lang interpreter today who has lost about 7 and [...] 12:16 PM EST): This is a 52-year-old Swedish-speaking woman who started the program at [facility] and did not lose very much weight on the program. The patient is now restarting the program at [facility] in an effort to undergo laparoscopic [...] protein shake or a protein bar or Egyptian yogurt or cottage cheese to be consumed [...] weight loss with the bariatric surgeons at [facility]. She is preparing for surgery. No date [...] Department Care Team Description 05/24/2025 Refill [facility] [place] [address] [place] [address] Pardeep Du MD Medication Refill 05/03/2025 10:33 AM EDT Anesthesia Event [facility] Endoscopy Admitting Dept Virtual Department [address] [place] [address] Drake Mcgovern MD 05/03/2025 10:30 AM EDT - 05/03/2025 11:00 AM EDT Surgery [facility]oscopy Admitting Dept Virtual Department [address] [place] [address] Lani Marion MD COLONOSCOPY 05/03/2025 9:27 AM EDT - 05/03/2025 12:00 PM EDT Hospital Encounter [facility]oscopy Admitting Dept Virtual Department [address] [place] [address] Lani Marion MD Discharge Disposition: Home or Self Care 05/03/2025 Procedure Pass [facility] Admitting Dept Virtual Department [address] [place] [address] 04/27/2025 10:00 AM EDT Pre-Admission Testing Pre Procedure Evaluation [address] [place] [address] Lani Marion MD from Last 3 Months [...] this topic Medical Devices Implanted Type Area Garage Mechanic Device Identifier Shelf Expiration Date Model / Serial / Lot System Implant Achilles [employer] - [id number] Implanted:Qty: 1 on 06/20/2022 by Drake Canales MD at [facility] Left: Ankle ARTHREX 03/27/2025 [id number] / / [id number] Procedures Procedure Name Priority Date/Time Associated Diagnosis Comments [place] COLSC FLX W/RMVL OF TUMOR POLYP LESION SNARE TQ 05/03/2025 10:29 AM EDT Gastroesophageal reflux disease without esophagitis Slow transit constipation Hx of colonic polyps Special Needs Hx CHF - cardiac workup done - see notes [place] COLONOSCOPY W/BIOPSY SINGLE/MULTIPLE 05/03/2025 10:29 AM EDT Gastroesophageal reflux disease without esophagitis Slow transit constipation Hx of colonic polyps Special Needs Hx CHF - cardiac workup done - see notes [place] COLONOSCOPY FLX DX W/COLLJ SPEC WHEN PFRMD [...] Marion MD - 05/03/2025 10:24 AM EDT [facility] Patient Name: Hiedi Gupta Attending MD:: LANI MARION MD, Procedure Date: 05/03/2025 10:24 AM Date of : 1970 Age: 54 Admit Type: Outpatient Gender: Female Room: [place] [address] Referring MD: Kirstin Reyes Exam Type: Colonoscopy [...] monitored continuously. The Olympus adult variable colonoscope [id number] #1 was introduced through the anus and [...] 10:24 AM Procedure Code(s): --- Professional --- 03469, Colonoscopy, flexible; with removal of tumor(s), polyp(s), or other lesion(s) by snare technique --- Technical --- 21118, Colonoscopy, flexible; with removal of tumor(s), polyp(s), or other lesion(s) by snare technique CPT copyright 2021 [employer]. All rights reserved. The codes documented in this report are preliminary and upon branch services manager reviewmay be revised to meet current compliance requirements. Procedure Date: 05/03/2025 10:24:[address] [place] [address] Kirstin GRAJEDA GI PROCEDURE ORDERABL ES Final Result * Anatomic Pathology (05/03/2025 12:00 AM EDT) 05/03/2025 05/03/2025 1:3 4 PM EDT Narrative SEE NARRATIVE - 05/04/2025 4:43 PM EDT [address] [address] Lift Operator: Jonatan Wilks MD Surgical Pathology Report FINAL [...] entirely submitted A1. LT 05/03/2025 Grossing Staff: [facility] Patient Name: HEIDI GUPTA : 1970 (Age: 54) Sex: F Institution: [facility] Date of Operation: 05/03/2025 Date of Reported: [...] (12/09/2022 4:15 AM EST) HDL 66 mg/dL [facility] Comment: Interpretation <40 mg/dL: Low HDL cholesterol (major risk factor for CHD) Greater than or equal to 60 mg/dL: High HDL cholesterol ( negative risk factor for CHD) HDL - cholesterol is affected by a number of factors, e.g. smoking, excerise, hormones, sex and age. CHOLESTEROL 163 0 - 240 mg/dL [facility] TRIGLYCERIDES 73 30 - 160 mg/dL [facility] LDL 82 50 - 129 mg/dL [facility] Comment: LDL levels in terms of risk for coronary heart disease: <100 mg/dL: Optimal 100-129 mg/dL: Near or above optimal 130-159 mg/dL: Borderline high 160-189 mg/dL: High >190 mg/dL: Very High CARDIAC RISK RATIO 2.5(L) 3.3 - 4.4 C [facility] Blood 12/09/2022 4:15 AM EST 12/09/2022 4:23 AM EST Olinda Higgins MD LAB BLOOD ORDERABLES Final Result [address] [address] * Pap Smear (03/20/2022 12:00 AM EDT) 03/20/2022 03/21/2022 8:4 4 AM EDT Narrative SEE NARRATIVE - 03/27/2022 11:19 AM EDT [address] [address] Lift Operator: Emily Estevez MD DENTAL PROFESSIONAL Cytology Report FINAL DIAGNOSIS A. PAP SMEAR [...] 52, 56, 58, 59, 66, 68) by [employer] Onclarity HR-HPV analysis. Clinical correlation is advised. This HPV test was performed at [facility], [address] [place] [address]. This test has been FDA approved for Sure[facility] cervical cytology specimens. The accuracy and precision of this test for all other specimen sources has been verified in the Cytopathology Laboratory of the [facility] and has not been cleared or approved by the U.S. Food and Drug Administration. Clinical correlation is advised. CLINICAL HISTORY Date of Last Menstrual Period: 03-20-2022 Menstrual History: Bleeding, Abnormal Other Clinical Conditions: Screening Pap SPECIMEN SOURCE A: PAP SMEAR (SUREPATH) CE Patient Name: HEIDI GUPTA : 1970 (Age: 51) Sex: F Institution: [facility] Location: [facility] Date of Collection: 03/20/2022 Date of Reported: 03/27/2022 11:19 Results to: Ted Bello MD us Ted Bello MD CYTOLOGY ORDERABLES Final Result SEE NARRATIVE * Hepatitis C antibody, qualitative (01/25/2022 8:02 AM EDT) HCV NON-REACTIV E NON-REACTI VE [facility] Blood 01/25/2022 8:02 AM EDT 01/25/2022 8:06 AM EDT Pardeep Du MD LAB BLOOD ORDERABLES Final Result Performing Organization Address City/[facility] Co de Phone Number [address] [address] * CT CHEST PULMONARY ANGIOGRAM (ACUTE) (09/26/2019 1:20 AM EST) Anatomical Region Laterality Modality Chest, Thoracic Vasculature Comp uted Tomography 09/26/2019 8:24 AM EST Impressions 09/26/2019 8:29 AM EST No pulmonary embolism demonstrated. Peripheral subsegmental emboli could be occult on this examination. No focal airspace infiltrate or pleural effusion. These findings were relayed to the Emergency Department by the [facility] on 09/26/2019. Incidental non-obstructive left nephrolithiasis. TOTAL CTDIvol: 113.60 mGy POS - [id number] Narrative 09/26/2019 8:29 AM EST COMPARISON: 09/25/2019 [...] were relayed to the Emergency Department by [facility] on 09/26/2019. Incidental non-obstructive left nephrolithiasis. TOTAL CTDIvol: 113.60 mGy POS - [id number] us Dilshad Duncan DO IMG CT CHEST Final Result from Last 3 Months or Most Recently Relevant to Health Maintenance Insurance [facility] ACO [facility] ACO [facility] ACO PROGRESSIVE INSURANCE Advance Directives For more information, please contact: [phone] (9AM - 5PM [facility], Saturday-Saturday) * Full Code (Latest Code Status on File) Date Activated Date Inactivated Comments 12/09/2022 3:44 AM Question Answer Comments Code Status Confirmed With: PatientFamily Care Teams Sex Crimes Detective Relationship Specialty Start Date End Date Kirstin Reyes PA [address] [place] [address] [place] [address] PCP - General Physician Supervisor Phosphorus Processing 05/03/25 Additional Source Comments The information contained in this document represents components of the legal health record. It is not the complete legal health record.[facility]
--- OUTSIDE RECORDS SUMMARY | 2025-07-02 12:17 | XMS_ITS | Encounter Summary ---
Author Organization [facility] Address [address] [place] [address] Phone Care Team Providers Care Hvac Lead Name Role Phone Pardeep Du MD Primary Care Provider Pardeep Du MD Unavailable [phone] Delilah Cervantes DO Primary Care Provider Kirstin Reyes Primary Care Provide r Encounter Details Date Type Department Care Team (Late st Contact Info) Description 04/05/2023 Procedure Pass [facility], [address] [address] Social History Tobacco Use Types Packs/Day Years [...] documented as of this encounter Care Teams Hvac Lead Relationship Specialty Start Date End Date Pardeep Du MD [address] [place] [address], 2nd [place] [address] francisco PCP - General Internal Medicine 04/01/19 05/18/24 Delilah Cervantes DO [address] [place] [address] PCP - General Family Medicine 05/19/24 05/02/25 Kirstin Reyes PA [address] [place] [address] PCP - General Physician Marketing And Promotions Manager 05/03/25 Pardeep Du MD [address] [place] [address], 2nd [place] [address] francisco [email or web address] Insurance Assigned Provider 08/08/19 07/06/23 documented as of this encounter Additional Source Comments The information contained in this document represents components of the legal health record. It is not the complete legal health record.[facility]
--- OUTSIDE RECORDS SUMMARY | 2025-07-02 12:17 | XMS_ITS | Encounter Summary ---
Author Organization [facility] Address [address] [facility] [address] [facility] [address] [place] [address] Phone Care Team Providers Care Assistant Corporate Secretary Name Role Phone Pardeep Du MD Primary Care Provider Pardeep Du MD Unavailable [phone] Jessie Smith RN Unavailable [phone] Delilah Cervantes DO Primary Care Provider Kirstin Reyes Primary Care Provide r Encounter Details Date Type Department Care Team (Late st Contact Info) Description 03/23/2021 Procedure Pass [facility], [address] [place] [address] Social History Tobacco Use Types Packs/Day Years [...] education for yourself related to: Learning the South Korean language? Completing high school, earning a [...] documented as of this encounter Care Teams Assistant Corporate Secretary Relationship Specialty Start Date End Date Pardeep Du MD [address] [place] [address], 2nd [place] [address] francisco PCP - General Internal Medicine 04/01/19 05/18/24 Delilah Cervantes DO [address] [place] [address] PCP - General Family Medicine 05/19/24 05/02/25 Kirstin Reyes PA [address] [place] [address] [place] [address] PCP - General Physician House Nurse 05/03/25 Pardeep Du MD [address] [place] [address], 2nd [place] [address] francisco [email or web address] Insurance Assigned Provider 08/08/19 07/06/23 Jessie Smith, RN [address] [place] [address] [email or web address] iCMP Molder Machine 12/12/22 01/24/23 documented as of this encounter Additional Source Comments The information contained in this document represents components of the legal health record. It is not the complete legal health record.[facility]
== END 2025-07-02 12:47 | disposition home or self-care (01) ==
LOC: HO.HMCH 11:10
DX: Z23 Encounter for immunization (principal)

== ENCOUNTER → 2025-07-02 11:09 | Outpatient (BNVA) | payer OTHER, SELFPAY | DX: Z00.00 Encounter for general adult medical examination without abnormal findings (principal); R53.83 Other fatigue; R92.1 Mammographic calcification found on diagnostic imaging of breast; I11.0 Hypertensive heart disease with heart failure; I50.32 Chronic diastolic (congestive) heart failure; E03.9 Hypothyroidism, unspecified; E66.01 Morbid (severe) obesity due to excess calories; G47.30 Sleep apnea, unspecified; L65.9 Nonscarring hair loss, unspecified; J45.909 Unspecified asthma, uncomplicated; S16.1XXA Strain of muscle, fascia and tendon at neck level, initial encounter; X58.XXXA Exposure to other specified factors, initial encounter; Y93.9 Activity, unspecified; Y92.9 Unspecified place or not applicable; Y99.9 Unspecified external cause status; Z23 Encounter for immunization | CPT/HCPCS: 90471; 90714; 99396 ==

== ENCOUNTER 2025-07-14 10:47 | Outpatient (REF) | payer OTHER, SELFPAY ==
[2025-07-14 11:55] LABS: Cholesterol 150 mg/dL (<200); HDL Cholesterol 46 mg/dL (>40); Iron 77 mcg/dL (30-160); Percent Iron Saturation 24 % (15-50); Total Iron Binding Capacity 317 mcg/dL (228-428); Triglycerides 123 mg/dL (<150); Unsaturated Iron Binding 240 ug/dL
[2025-07-14 12:15] LABS: Free T4 (Free Thyroxine) 1.58 ng/dL (0.71-1.85)
[2025-07-14 12:26] LABS: Folate 9.8 ng/mL (> or = 4.0); Vitamin B12 370 pg/mL (200-900)
--- OUTSIDE RECORDS SUMMARY | 2025-07-14 13:42 | XMS_ITS | Encounter Summary ---
Author Organization [facility] Address [address] [facility] [address] [facility] [address] [place] [address] Phone Care Team Providers Care Photogrammetric Technician Name Role Phone Pardeep Du MD Primary Care Provider Pardeep Du MD Unavailable [phone] Jessie Smith RN Unavailable [phone] Delilah Cervantes DO Primary Care Provider Kirstin Reyes Primary Care Provide r Encounter Details Date Type Department Care Team (Late st Contact Info) Description 10/18/2020 Procedure Pass [facility] - [address] [place] [address] Social History Tobacco Use Types Packs/Day Years [...] education for yourself related to: Learning the Albanian language? Completing high school, earning a high [...] documented as of this encounter Care Teams Photogrammetric Technician Relationship Specialty Start Date End Date Pardeep Du MD [address] [place] [address], 2nd [place] [address] francisco PCP - General Internal Medicine 04/01/19 05/18/24 Delilah Cervantes DO [address] [place] [address] PCP - General Family Medicine 05/19/24 05/02/25 Kirstin Reyes PA [address] [place] [address] [place] [address] PCP - General Physician Ironworker Helper Shop 05/03/25 Pardeep Du MD [address] [place] [address], 2nd [place] [address] francisco [email or web address] Insurance Assigned Provider 08/08/19 07/06/23 Jessie Smith, RN [address] [place] [address] [email or web address] iCMP Financial Internship 12/12/22 01/24/23 documented as of this encounter Additional Source Comments The information contained in this document represents components of the legal health record. It is not the complete legal health record.[facility]
--- OUTSIDE RECORDS SUMMARY | 2025-07-14 13:42 | XMS_ITS | Encounter Summary ---
Author Organization [facility] Address [address] [place] [address] Phone Care Team Providers Care Photographer Helper Name Role Phone Pardeep Du MD Primary Care Provider [phone] Pardeep Du MD Unavailable [phone] Jessie Smith RN Unavailable [phone] Delilah Cervantes DO Primary Care Provider Kirstin Reyes Primary Care Provide r Encounter Details Date Type Department Care Team (Late st Contact Info) Description 09/16/2019 Ancillary Orders [facility],Outside Imaging 30 [place], [place] [id number] System, Provider Not In, PhD Partners [address] [address] Social History Tobacco Use Types Packs/Day Years [...] education for yourself related to: Learning the Maltese language? Completing high school, earning a high [...] documented as of this encounter Care Teams Photographer Helper Relationship Specialty Start Date End Date Pardeep Du MD [address] [place] [address], [address] [place] [address] francisco PCP - General Internal Medicine 04/01/19 05/18/24 Delilah Cervantes DO [address] [place] [address] PCP - General Family Medicine 05/19/24 05/02/25 Kirstin Reyes PA [address] [place] [address] [place] [address] PCP - General Physician Machine Repairman 05/03/25 Pardeep Du MD [address] [place] [address] francisco Insurance Assigned Provider 08/08/19 07/06/23 Jessie Smith, RN [address] [place] [address] iCMP Fertilizing Machine Operator 12/12/22 01/24/23 documented as of this encounter Additional Source Comments The information contained in this document represents components of the legal health record. It is not the complete legal health record.[facility]
--- OUTSIDE RECORDS SUMMARY | 2025-07-14 13:42 | XMS_ITS | Encounter Summary ---
Author Organization [facility] Address [address] [facility] [address] [address] [place] [address] Phone Care Team Providers Care Manager Intensive Care Unit Name Role Phone Pardeep Du MD Primary Care Provider [phone]- [phone] Pardeep Du MD Unavailable [phone] Jessie Smith RN Unavailable [phone] Delilah Cervantes DO Primary Care Provider [phone] Kirstin Reyes Primary Care Provide r Encounter Details Date Type Department Care Team (Late st Contact Info) Description 12/17/2022 Procedure Pass [facility], [address] [place] [address] Social History Tobacco Use Types Packs/Day Years [...] education for yourself related to: Learning the Gabonese language? Completing high school, earning a high [...] as of this encounter Care Teams Manager Intensive Care Unit Relationship Specialty Start Date End Date Pardeep Du MD [address] [place] [address], [address] [place] [address] francisco PCP - General Internal Medicine 04/01/19 05/18/24 Delilah Cervantes DO [address] [place] [address] PCP - General Family Medicine 05/19/24 05/02/25 Kirstin Reyes PA [address] [place] [address] [place] [address] PCP - General Physician Automotive Technology Instructor 05/03/25 Pardeep Du MD [address] [place] [address], [address]nd [place] [address] francisco [email or web address] Insurance Assigned Provider 08/08/19 07/06/23 Jessie Smith, RN [address] [place] [address] [email or web address] iCMP Event Marketing Manager 12/12/22 01/24/23 documented as of this encounter Additional Source Comments The information contained in this document represents components of the legal health record. It is not the complete legal health record.[facility]
--- OUTSIDE RECORDS SUMMARY | 2025-07-14 13:42 | XMS_ITS | Encounter Summary ---
Author Organization [facility] Address [address] [facility] [address] [place] [address] Phone Care Team Providers Care Engraver Hand Soft Metals Name Role Phone Pardeep Du MD Primary Care Provider [phone] Pardeep Du MD Unavailable [phone] Jessie Smith RN Unavailable [phone] Delilah Cervantes DO Primary Care Provider [phone] Kirstin Reyes Primary Care Provide r Encounter Details Date Type Department Care Team (Late st Contact Info) Description 09/16/2019 Ancillary Orders [facility],Outside Imaging 30 [place], [place] [phone] System, Provider Not In, PhD Partners [address] [address] Social History Tobacco Use Types Packs/Day Years [...] documented as of this encounter Care Teams Engraver Hand Soft Metals Relationship Specialty Start Date End Date Pardeep Du MD [address] [place] [address], [address] [place] [address] francisco PCP - General Internal Medicine 04/01/19 05/18/24 Delilah Cervantes DO [address] [place] [address] PCP - General Family Medicine 05/19/24 05/02/25 Kirstin Reyes PA [address] [place] [address] [place] [address] PCP - General Physician Outsole Cementer Machine 05/03/25 Pardeep Du MD [address] [place] [address] francisco Insurance Assigned Provider 08/08/19 07/06/23 Jessie Smith, RN [address] [place] [address] iCMP Grooving Machine Operator 12/12/22 01/24/23 documented as of this encounter Additional Source Comments The information contained in this document represents components of the legal health record. It is not the complete legal health record.[facility]
--- OUTSIDE RECORDS SUMMARY | 2025-07-14 13:42 | XMS_ITS | Encounter Summary ---
Author Organization [facility] Address [address] [facility] [address] [place] [address] Phone Care Team Providers Care Concrete Finisher Apprentice Name Role Phone Kirstin Reyes Primary Care Provide r Encounter Details Date Type Department Care Team (Late st Contact Info) Description 05/03/2025 Procedure Pass [facility] Admitting Dept Virtual Department 30 [place] [address] Social History Tobacco Use Types Packs/Day Years [...] documented as of this encounter Care Teams Concrete Finisher Apprentice Relationship Specialty Start Date End Date Kirstin Reyes PA [address] [place] [address] [place] [address] PCP - General Physician Cashier Or Checker Stock Clerk 05/03/25 documented as of this encounter Additional Source Comments The information contained in this document represents components of the legal health record. It is not the complete legal health record.[facility]
--- OUTSIDE RECORDS SUMMARY | 2025-07-14 13:42 | XMS_ITS | Encounter Summary ---
Author Organization [facility] Address [address] [facility] [address] [place] [address] Phone Care Team Providers Care Nicking Machine Operator Name Role Phone Pardeep Du MD Primary Care Provider [phone] Pardeep Du MD Unavailable [phone] Jessie Smith RN Unavailable [phone] Delilah Cervantes DO Primary Care Provider Kirstin Reyes Primary Care Provide r Encounter Details Date Type Department Care Team (Late st Contact Info) Description 09/16/2019 Ancillary Orders [facility],Outside Imaging 30 [place], [place] [phone] System, Provider Not In, PhD Partners [address] [address] Social History Tobacco Use Types Packs/Day Years [...] education for yourself related to: Learning the Portuguese language? Completing high school, earning a high [...] documented as of this encounter Care Teams Nicking Machine Operator Relationship Specialty Start Date End Date Pardeep Du MD [address] [place] [address], [address] [place] [address] francisco PCP - General Internal Medicine 04/01/19 05/18/24 Delilah Cervantes DO [address] [place] [address] PCP - General Family Medicine 05/19/24 05/02/25 Kirstin Reyes PA [address] [place] [address] [place] [address] PCP - General Physician Cnc Mill Operator 05/03/25 Pardeep Du MD [address] [place] [address] francisco Insurance Assigned Provider 08/08/19 07/06/23 Jessie Smith, RN [address] [place] [address] iCMP Pipe Line Inspector 12/12/22 01/24/23 documented as of this encounter Additional Source Comments The information contained in this document represents components of the legal health record. It is not the complete legal health record.[facility]
--- OUTSIDE RECORDS SUMMARY | 2025-07-14 13:42 | XMS_ITS | Encounter Summary ---
Author Organization [facility] Address [address] [place] [address] Phone Care Team Providers Care Civil Engineering Director Name Role Phone Pardeep Du MD Primary Care Provider Pardeep Du MD Unavailable [phone] Jessie Smith RN Unavailable Delilah Cervantes DO Primary Care Provider Kirstin Reyes Primary Care Provide r Encounter Details Date Type Department Care Team (Late st Contact Info) Description 05/04/2019 Ancillary Orders [facility] [address] [place] [address] [place] [address] Andrew Alberto MD [address] [place] [address] [facility] [place] [address] [email or web address] Pain in both knees, unspecified [...] to medium sized joint effusion. POS - [id number] Narrative 05/04/2019 1:28 PM EDT Left knee [...] to medium sized joint effusion. POS - [id number] Andrew Alberto MD IMG XR LOWER EXTREMITY F inal Result * XR KNEE 4 OR MORE VIEWS (RIGHT) (05/04/2019 1:07 PM EDT) Anatomical Region Laterality Modality Knee Right Radiographic Jesika ging 05/04/2019 1:27 PM EDT Impressions 05/04/2019 1:28 PM EDT Moderate medial compartment osteoarthritis. No erosive changes or bony lesion seen. Prominent joint effusion. POS - [id number] Narrative 05/04/2019 1:28 PM EDT Right knee [...] bonylesion seen. Prominent joint effusion. POS - [id number] Andrew Alberto MD IMG XR LOWER EXTREMITY [...] documented as of this encounter Care Teams Civil Engineering Director Relationship Specialty Start Date End Date Pardeep Du MD [address] [place] [address], [address] [place] [address] francisco PCP - General Internal Medicine 04/01/19 05/18/24 Delilah Cervantes DO [address] [place] [address] PCP - General Family Medicine 05/19/24 05/02/25 Kirstin Reyes PA [address] [place] [address] PCP - General Physician Pony Roll Finisher 05/03/25 Pardeep Du MD [address] [place] [address] francisco Insurance Assigned Provider 08/08/19 07/06/23 Jessie Smith, RN [address] [place] [address] iCMP Fibre Technologist 12/12/22 01/24/23 documented as of this encounter Additional Source Comments The information contained in this document represents components of the legal health record. It is not the complete legal health record.[facility]
--- OUTSIDE RECORDS SUMMARY | 2025-07-14 13:42 | XMS_ITS | Encounter Summary ---
Author Organization [facility] Address [address] [facility] [address] [place] [address] Phone Care Team Providers Care Hazardous Materials Handler Name Role Phone Pardeep Du MD Primary Care Provider [phone] Pardeep Du MD Unavailable [phone] Jessie Smith RN Unavailable [phone] Delilah Cervantes DO Primary Care Provider Kirstin Reyes Primary Care Provide r Encounter Details Date Type Department Care Team (Late st Contact Info) Description 10/18/2020 Procedure Pass [facility] - [address] [place] [address] Social History Tobacco Use Types Packs/Day Years [...] documented as of this encounter Care Teams Hazardous Materials Handler Relationship Specialty Start Date End Date Pardeep Du MD [address] [place] [address], 2nd [place] [address] francisco PCP - General Internal Medicine 04/01/19 05/18/24 Delilah Cervantes DO [address] [place] [address] PCP - General Family Medicine 05/19/24 05/02/25 Kirstin Reyes PA [address] [place] [address] [place] [address] PCP - General Physician Pathology Transcriptionist 05/03/25 Pardeep Du MD [address] [place] [address], 2nd [place] [address] francisco [email or web address] Insurance Assigned Provider 08/08/19 07/06/23 Jessie Smith, RN [address] [place] [address] [email or web address] iCMP Commercial Announcer 12/12/22 01/24/23 documented as of this encounter Additional Source Comments The information contained in this document represents components of the legal health record. It is not the complete legal health record.[facility]
--- OUTSIDE RECORDS SUMMARY | 2025-07-14 13:42 | XMS_ITS | Encounter Summary ---
Author Organization [facility] Address [address] [place] [address] Phone Care Team Providers Care Gizzard Skin Remover Name Role Phone Pardeep Du MD Primary Care Provider [phone] Pardeep Du MD Unavailable [phone] Jessie Smith RN Unavailable [phone] Delilah Cervantes DO Primary Care Provider Kirstin Reyes Primary Care Provide r Encounter Details Date Type Department Care Team (Late st Contact Info) Description 09/16/2019 Ancillary Orders [facility],Outside Imaging 30 [place], [place] [phone] System, Provider Not In, PhD Partners [address] [address] Social History Tobacco Use Types Packs/Day Years [...] education for yourself related to: Learning the Irish language? Completing high school, earning a [...] documented as of this encounter Care Teams Gizzard Skin Remover Relationship Specialty Start Date End Date Pardeep Du MD [address] [place] [address], [address] [place] [address] francisco PCP - General Internal Medicine 04/01/19 05/18/24 Delilah Cervantes DO [address] [place] [address] PCP - General Family Medicine 05/19/24 05/02/25 Kirstin Reyes PA [address] [place] [address] [place] [address] PCP - General Physician Classroom Coordinator 05/03/25 Pardeep Du MD [address] [place] [address] francisco Insurance Assigned Provider 08/08/19 07/06/23 Jessie Smith, RN [address] [place] [address] iCMP Steward/Stewardess Smoke Room 12/12/22 01/24/23 documented as of this encounter Additional Source Comments The information contained in this document represents components of the legal health record. It is not the complete legal health record.[facility]
--- OUTSIDE RECORDS SUMMARY | 2025-07-14 13:42 | XMS_ITS | Encounter Summary ---
Author Organization [facility] Address [address] [facility] [address] [place] [address] Phone Care Team Providers Care Grinding Machine Tender Name Role Phone Pardeep Du MD Primary Care Provider [phone]- [phone] Pardeep Du MD Unavailable [phone] Jessie Smith RN Unavailable [phone] Delilah Cervantes DO Primary Care Provider Kirstin Reyes Primary Care Provide r Encounter Details Date Type Department Care Team (Late st Contact Info) Description 09/16/2019 Ancillary Orders [facility],Outside Imaging 30 [place], [place] [phone] System, Provider Not In, PhD Partners [address] [address] Social History Tobacco Use Types Packs/Day Years [...] education for yourself related to: Learning the Yoruba language? Completing high school, earning a high [...] documented as of this encounter Care Teams Grinding Machine Tender Relationship Specialty Start Date End Date Pardeep Du MD [address] [place] [address], [address] [place] [address] francisco PCP - General Internal Medicine 04/01/19 05/18/24 Delilah Cervantes DO [address] [place] [address] PCP - General Family Medicine 05/19/24 05/02/25 Kirstin Reyes PA [address] [place] [address] [place] [address] PCP - General Physician Sr Risk Management Consultant 05/03/25 Pardeep Du MD [address] [place] [address] francisco Insurance Assigned Provider 08/08/19 07/06/23 Jessie Smith, RN [address] [place] [address] iCMP Cigar Head Puncher 12/12/22 01/24/23 documented as of this encounter Additional Source Comments The information contained in this document represents components of the legal health record. It is not the complete legal health record.[facility]
--- OUTSIDE RECORDS SUMMARY | 2025-07-14 13:42 | XMS_ITS | Encounter Summary ---
Author Organization [facility] Address [address] [facility] [address] [place] [address] Phone Care Team Providers Care Parts Back Counter Man Name Role Phone Pardeep Du MD Primary Care Provider [phone]- [phone] Pardeep Du MD Unavailable [phone] Jessie Smith RN Unavailable [phone] Delilah Cervantes DO Primary Care Provider [phone] Kirstin Reyes Primary Care Provide r Encounter Details Date Type Department Care Team (Late st Contact Info) Description 09/16/2019 Ancillary Orders [facility],Outside Imaging 30 [place], [place] [phone] System, Provider Not In, PhD Partners [address] [address] Social History Tobacco Use Types Packs/Day Years [...] education for yourself related to: Learning the Arabic language? Completing high school, earning a high [...] documented as of this encounter Care Teams Parts Back Counter Man Relationship Specialty Start Date End Date Pardeep Du MD [address] [place] [address], [address] [place] [address] francisco PCP - General Internal Medicine 04/01/19 05/18/24 Delilah Cervantes DO [address] [place] [address] PCP - General Family Medicine 05/19/24 05/02/25 Kirstin Reyes PA [address] [place] [address] [place] [address] PCP - General Physician Retail Product Advisor 05/03/25 Pardepe Du MD [address] [place] [address] francisco Insurance Assigned Provider 08/08/19 07/06/23 Jessie Smith, RN [address] [place] [address] iCMP [place] Program Coordinator 12/12/22 01/24/23 documented as of this encounter Additional Source Comments The information contained in this document represents components of the legal health record. It is not the complete legal health record.[facility]
--- OUTSIDE RECORDS SUMMARY | 2025-07-14 13:42 | XMS_ITS | Encounter Summary ---
Author Organization [facility] Address [address] [facility] [address] [place] [address] Phone Care Team Providers Care Senior Back End Java Developer Name Role Phone Pardeep Du MD Primary Care Provider [phone] Pardeep Du MD Unavailable [phone] Jessie Smith RN Unavailable [phone] Delilah Cervantes DO Primary Care Provider Kirstin Reyes Primary Care Provide r Encounter Details Date Type Department Care Team (Late st Contact Info) Description 02/28/2022 Procedure Pass [facility] - [address] [place] [address] Social History Tobacco Use Types Packs/Day Years [...] education for yourself related to: Learning the Azeri language? Completing high school, earning a high [...] as of this encounter Care Teams Senior Back End Java Developer Relationship Specialty Start Date End Date Pardeep Du MD [address] [place] [address], 2nd [place] [address] francisco PCP - General Internal Medicine 04/01/19 05/18/24 Delilah Cervantes DO [address] [place] [address] PCP - General Family Medicine 05/19/24 05/02/25 Kirstin Reyes PA NPI: [id number] [place] [address] [place] [address] PCP - General Physician Large Engine Assembler 05/03/25 Pardeep Du MD [address] [place] [address], 2nd [place] [address] francisco [email or web address] Insurance Assigned Provider 08/08/19 07/06/23 Jessie Smith, RN [address] [place] [address] [email or web address] iCMP Sack Department Supervisor 12/12/22 01/24/23 documented as of this encounter Additional Source Comments The information contained in this document represents components of the legal health record. It is not the complete legal health record.[facility]
--- OUTSIDE RECORDS SUMMARY | 2025-07-14 13:43 | XMS_ITS | Encounter Summary ---
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 Derangement of anterior horn of lateral [...] as of this encounter Care Teams Android Framework Developer Relationship Specialty Start Date End Date Pardeep Du MD [address] [place] [address], [address] [place] [address] francisco PCP - General Internal Medicine 04/01/19 05/18/24 Delilah Cervantes DO [address] [place] [address] PCP - General Family Medicine 05/19/24 05/02/25 Kirstin Reyes PA [address] [place] [address] [place] [address] PCP - General Physician Pot Tender 05/03/25 Pardeep Du MD [address] [place] [address], [address] [place] [address] francisco Insurance Assigned Provider 08/08/19 07/06/23 Jessie Smith, MEGHAN [address] [place] [address] [email or web address] iCMP Biometrics Experimentalist 12/12/22 01/24/23 documented as of this encounter Additional Source Comments The information contained in this document represents components of the legal health record. It is not the complete legal health record.[facility]
--- OUTSIDE RECORDS SUMMARY | 2025-07-14 13:43 | XMS_ITS | Encounter Summary ---
Author Organization [facility] Address [address] [facility] [address] [place] [address] Phone Care Team Providers Care Carrier Driver Name Role Phone Pardeep Du MD Primary Care Provider [phone] Pardeep Du MD Unavailable [phone] Jessie Smith RN Unavailable [phone] Delilah Cervantes DO Primary Care Provider Kirstin Reyes Primary Care Provide r Encounter Details Date Type Department Care Team (Late st Contact Info) Description 02/28/2022 Procedure Pass [facility] - [address] [place] [address] Social History Tobacco Use Types Packs/Day Years [...] documented as of this encounter Care Teams Carrier Driver Relationship Specialty Start Date End Date Pardeep Du MD [address] [place] [address], 2nd [place] [address] francisco PCP - General Internal Medicine 04/01/19 05/18/24 Delilah Cervantes DO [address] [place] [address] PCP - General Family Medicine 05/19/24 05/02/25 Kirstin Reyes PA [address] [place] [address] [place] [address] PCP - General Physician Business Services Associate 05/03/25 Pardeep Du MD [address] [place] [address], 2nd [place] [address] francisco [email or web address] Insurance Assigned Provider 08/08/19 07/06/23 Jessie Smith, RN [address] [place] [address] [email or web address] iCMP Client Technologies Analyst 12/12/22 01/24/23 documented as of this encounter Additional Source Comments The information contained in this document represents components of the legal health record. It is not the complete legal health record.[facility]
--- OUTSIDE RECORDS SUMMARY | 2025-07-14 13:43 | XMS_ITS | Clinical Summary ---
Author Organization [employer] Address [address] [facility] 7t [place] [address] Care Team Providers Care Investigative Assistant Name Role Phone Unavailable Primary Care [...] patient's age to complete this topic Insurance [facility]
--- OUTSIDE RECORDS SUMMARY | 2025-07-14 13:43 | XMS_ITS | Encounter Summary ---
Author Organization [facility] Address [address] [facility] [address] [place] [address] Phone Care Team Providers Care Vegetable Handler Name Role Phone Pardeep Du MD Primary Care Provider Pardeep Du MD Unavailable [phone] Jessie Smith RN Unavailable Delilah Cervantes DO Primary Care Provider Kirstin Reyes Primary Care Provide r Encounter Details Date Type Department Care Team (Late st Contact Info) Description 03/05/2022 Procedure Pass [facility], Ct Scan - [address] [address] Social History Tobacco Use Types Packs/Day Years [...] 1:02 PM EDT Drake Cha, MEGHAN * [place] Suicide Severity Rating Scale (Screener/Recent Self-Report) Question [...] documented as of this encounter Care Teams Vegetable Handler Relationship Specialty Start Date End Date Pardeep Du MD [address] [place] [address], [address] [place] [address] francisco PCP - General Internal Medicine 04/01/19 05/18/24 Delilah Cervantes DO [address] [place] [address] PCP - General Family Medicine 05/19/24 05/02/25 Kirstin Reyes PA [address] [place] [address] PCP - General Physician Audiovisual Technician 05/03/25 Pardeep Du MD [address] [place] [address], [address] [place] [address] francisco [email or web address] Insurance Assigned Provider 08/08/19 07/06/23 Jessie Smith, RN [address] [place] [address] [email or web address] iCMP Materials Associate 12/12/22 01/24/23 documented as of this encounter Additional Source Comments The information contained in this document represents components of the legal health record. It is not the complete legal health record.[facility]
--- OUTSIDE RECORDS SUMMARY | 2025-07-14 13:43 | XMS_ITS | Encounter Summary ---
Author Organization [facility] Address [address] [facility] [address] [place] [address] Phone Care Team Providers Care Individual Pension Adviser Name Role Phone Pardeep Du MD Primary Care Provider Pardeep Du MD Unavailable [phone] Jessie Smith RN Unavailable [phone] Delilah Cervantes DO Primary Care Provider Kirstin Reyes Primary Care Provide r Encounter Details Date Type Department Care Team (Late st Contact Info) Description 12/09/2022 Procedure Pass [facility] [address] [place] [address] Social History Tobacco Use Types Packs/Day Years [...] education for yourself related to: Learning the Lebanese language? Completing high school, earning a high [...] documented as of this encounter Care Teams Individual Pension Adviser Relationship Specialty Start Date End Date Pardeep Du MD [address] [place] [address], 2nd [place] [address] francisco PCP - General Internal Medicine 04/01/19 05/18/24 Delilah Cervantes DO [address] [place] [address] PCP - General Family Medicine 05/19/24 05/02/25 Kirstin Reyse PA [address] [place] [address] [place] [address] PCP - General Physician Snagger 05/03/25 Pardeep Du MD [address] [place] [address], 2nd [place] [address] francisco [email or web address] Insurance Assigned Provider 08/08/19 07/06/23 Jessie Smith, RN [address] [place] [address] [email or web address] iCMP Patient Experience Coordinator 12/12/22 01/24/23 documented as of this encounter Additional Source Comments The information contained in this document represents components of the legal health record. It is not the complete legal health record.[facility]
--- OUTSIDE RECORDS SUMMARY | 2025-07-14 13:43 | XMS_ITS | Encounter Summary ---
Author Organization [facility] Address [address] [facility] [address] [place] [address] Phone Care Team Providers Care Helper Shear Operator Name Role Phone Pardeep Du MD [...] CONTRAST Gilda Carranza PA-C Phone: tel: fax: [email or web address] Referral ID Status Reason Start Date Expiration Date Visits Re quested Visits Authorized [id number] Closed 07/07/2024 09/05/2024 1 1 Encounter Details Date Type Department Care Team (Latest Contact Info) Description 04/06/2024 Transcribe Orders Virtual Department 30 [place] [address] Gilda Carranza PA-C [address] [place] [address] LLQ abdominal pain (Primary Dx); Constipation, unspecified [...] llq abdomen pain, left lower [facility] as well as constipation [...] documented as of this encounter Care Teams Helper Shear Operator Relationship Specialty Start Date End Date Pardeep Du MD [address] [place] [address], 2nd [place] [address] francisco [email or web address] PCP - General Internal Medicine 04/01/19 05/18/24 Delilah Cervantes DO [address] [place] [address] PCP - General Family Medicine 05/19/24 05/02/25 Kirstin Reyes PA [address] [place] [address] [place] [address] PCP - General Physician Craft Artist 05/03/25 documented as of this encounter Additional Source Comments The information contained in this document represents components of the legal health record. It is not the complete legal health record.[facility]
--- OUTSIDE RECORDS SUMMARY | 2025-07-14 13:43 | XMS_ITS | Encounter Summary ---
Author Organization [facility] Address [address] [facility] [address] [place] [address] Phone Care Team Providers Care Char Conveyor Tender Name Role Phone Pardeep Du MD Primary Care Provider Pardeep Du MD Unavailable [phone] Jessie Smith RN Unavailable [phone] Delilah Cervantes DO Primary Care Provider [phone] Kirstin Reyes Primary Care Provide r Encounter Details Date Type Department Care Team (Late st Contact Info) Description 10/04/2021 Procedure Pass [facility] 30 [place] [address] Social History Tobacco Use Types Packs/Day Years [...] education for yourself related to: Learning the Afghan language? Completing high school, earning a high [...] documented as of this encounter Care Teams Char Conveyor Tender Relationship Specialty Start Date End Date Pardeep Du MD [address] [place] [address], 2nd [place] [address] francisco PCP - General Internal Medicine 04/01/19 05/18/24 Delilah Cervantes DO [address] [place] [address] PCP - General Family Medicine 05/19/24 05/02/25 Kirstin Reyes PA [address] [place] [address] [place] [address] PCP - General Physician Metalsmith Helper 05/03/25 Pardeep Du MD [address] [place] [address], 2nd [place] [address] francisco [email or web address] Insurance Assigned Provider 08/08/19 07/06/23 Jessie Smith, RN [address] [place] [address] [email or web address] iCMP Roof Bolter Operator 12/12/22 01/24/23 documented as of this encounter Additional Source Comments The information contained in this document represents components of the legal health record. It is not the complete legal health record.[facility]
--- OUTSIDE RECORDS SUMMARY | 2025-07-14 13:43 | XMS_ITS | Encounter Summary ---
Author Organization [facility] Address [address] [facility] [address] [place] [address] Phone Care Team Providers Care Automatic Log Cut Off Sawyer Name Role Phone Pardeep Du MD Primary Care Provider [phone] Pardeep Du MD Unavailable [phone] Jessie Smith RN Unavailable [phone] Delilah Cervantes DO Primary Care Provider Kirstin Reyes Primary Care Provide r Encounter Details Date Type Department Care Team (Late st Contact Info) Description 06/30/2019 Procedure Pass [facility], [address] [place] [address] Social History Tobacco Use Types Packs/Day Years [...] education for yourself related to: Learning the Mauritanian language? Completing high school, earning a high [...] documented as of this encounter Care Teams Automatic Log Cut Off Sawyer Relationship Specialty Start Date End Date Pardeep Du MD [address] [place] [address], 2nd [place] [address] PCP - General Internal Medicine 04/01/19 05/18/24 Delilah Cervantes DO [address] [place] [address] PCP - General Family Medicine 05/19/24 05/02/25 Kirstin Reyes PA [address] [place] [address] [place] [address] PCP - General Physician Outside Rigger 05/03/25 Pardeep Du MD [address] [place] [address], 2nd [place] [address] francisco [email or web address] Insurance Assigned Provider 08/08/19 07/06/23 Jessie Smith, RN [address] [place] [address] [email or web address] iCMP Shell Trim Tool Setter 12/12/22 01/24/23 documented as of this encounter Additional Source Comments The information contained in this document represents components of the legal health record. It is not the complete legal health record.[facility]
--- OUTSIDE RECORDS SUMMARY | 2025-07-14 13:43 | XMS_ITS | Encounter Summary ---
Author Organization [facility] Address [address] [facility] [address] [place] [address] Phone Care Team Providers Care Photographer'S Model Name Role Phone Pardeep Du MD Primary Care Provider [phone] Pardeep Du MD Unavailable [phone] Jessie Smith RN Unavailable Delilah Cervantes DO Primary Care Provider [phone] Kirstin Reyes Primary Care Provide r Encounter Details Date Type Department Care Team (Late st Contact Info) Description 08/07/2021 Procedure Pass [facility], Ct Scan - [address] [address] Social History Tobacco Use Types Packs/Day Years [...] education for yourself related to: Learning the Mongolian language? Completing high school, earning a high [...] 7:48 PM EDT Aniyah Price RN * [place] Suicide Severity Rating Scale (Screener/Recent Self-Report) Question [...] documented as of this encounter Care Teams Photographer'S Model Relationship Specialty Start Date End Date Pardeep Du MD [address] [place] [address] [email or web address] PCP - General Internal Medicine 04/01/19 05/18/24 Delilah Cervantes DO [address] [place] [address] PCP - General Family Medicine 05/19/24 05/02/25 Kirstin Reyes PA [address] [place] [address] PCP - General Physician Groundhand 05/03/25 Pardeep Du MD [address] [place] [address] francisco Insurance Assigned Provider 08/08/19 07/06/23 Jessie Smith, RN [address] [place] [address] [email or web address] iCMP Trim Die Maker 12/12/22 01/24/23 documented as of this encounter Additional Source Comments The information contained in this document represents components of the legal health record. It is not the complete legal health record.[facility]
--- OUTSIDE RECORDS SUMMARY | 2025-07-14 13:43 | XMS_ITS | Encounter Summary ---
Author Organization [facility] Address [address] [facility] [address] [place] [address] Phone Care Team Providers Care Health Actuary Name Role Phone Pardeep Du MD Primary Care Provider Pardeep Du MD Unavailable [phone] Jessie Smith RN Unavailable [phone] Delilah Cervantes DO Primary Care Provider Kirstin Reyes Primary Care Provide r Encounter Details Date Type Department Care Team (Late st Contact Info) Description 07/23/2019 Ancillary Orders Non-Invasive Cardiology 30 [place] [address] Pardeep Du MD [address] [facility], 2nd [place] [address] francisco [email or web address] Chest pain, unspecified type Social History Tobacco [...] education for yourself related to: Learning the Maori language? Completing high school, earning a high [...] AM EDT) Max BP Systolic 130 mmHg [facility] Max BP Diastolic 70 mmHg [facility] Max HR 88 BPM [facility] Resting HR 57 BPM [facility] Resting BP Systolic 126 mmHg [facility] Resting BP Diastolic 78 mmHg [facility] Peak METS 1.0 METS [facility] Peak HR 87 BPM [facility] Anatomical Region Laterality Modality Heart Other [...] of the Tc99m Sestamibi by the nuclear physics professor. Patient tolerated infusion without complications. Test terminated [...] Time CoV-Exposed Comment:Positive COVID-19 09/02/2020 09/02/2020 09/04/2020 2: 59 PM EST COVID-19 09/03/2020 09/03/2020 09/23/2020 1:24 AM EST CoV-Risk Comment:Per Ambulatory Triage Form 12/12/2021 12/12/202112/13 2:53 PM EST COVID-19 12/12/2021 12/12/2021 01/02/2022 1:23 AM EST CoV-Risk 06/28/2023 06/28/2023 07/09/2023 1:22 AM EDT Assessment Noted Time PHQ-2 Depression Total Score: 0 06/30/20 9:06 AM EDT documented as of this encounter Care Teams Health Actuary Relationship Specialty Start Date End Date Pardeep Du MD [address] [place] [address], 2nd [place] [address] francisco PCP - General Internal Medicine 04/01/19 05/18/24 Delilah Cervantes DO [address] [place] [address] PCP - General Family Medicine 05/19/24 05/02/25 Kirstin Reyes PA [address] [place] [address] PCP - General Physician Brazer Crawler Torch 05/03/25 Pardeep Du MD [address] [place] [address], 2nd [place] [address] francisco Insurance Assigned Provider 08/08/19 07/06/23 Jessie Smith, RN [address] [place] [address] [email or web address] iCMP Traffic Operations Engineer 12/12/22 01/24/23 documented as of this encounter Additional Source Comments The information contained in this document represents components of the legal health record. It is not the complete legal health record.[facility]
--- OUTSIDE RECORDS SUMMARY | 2025-07-14 13:43 | XMS_ITS | Encounter Summary ---
Author Organization [facility] Address [address] [facility] [address] [place] [address] Phone Care Team Providers Care Rn Clinical Trials Name Role Phone Pardeep Du MD Primary Care Provider Pardeep Du MD Unavailable [phone] Jessie Smith RN Unavailable [phone] Delilah Cervantes DO Primary Care Provider Kirstin Reyes Primary Care Provide r Encounter Details Date Type Department Care Team (Late st Contact Info) Description 04/06/2022 Procedure Pass [facility] Admitting Dept Virtual Department 30 [place], [place] [id number] Social History Tobacco Use Types Packs/Day Years [...] documented as of this encounter Care Teams Rn Clinical Trials Relationship Specialty Start Date End Date Pardeep Du MD [address] [place] [address], 2nd [place] [address] francisco PCP - General Internal Medicine 04/01/19 05/18/24 Delilah Cervantes DO [address] [place] [address] PCP - General Family Medicine 05/19/24 05/02/25 Kirstin Reyes PA [address] [place] [address] [place] [address] PCP - General Physician Peoplesoft 05/03/25 Pardeep Du MD [address] [place] [address], 2nd [place] [address] francisco [email or web address] Insurance Assigned Provider 08/08/19 07/06/23 Jessie Smith, RN [address] [place] [address] [email or web address] iCMP Aircraft Body Repairer 12/12/22 01/24/23 documented as of this encounter Additional Source Comments The information contained in this document represents components of the legal health record. It is not the complete legal health record.[facility]
--- OUTSIDE RECORDS SUMMARY | 2025-07-14 13:43 | XMS_ITS | Encounter Summary ---
Author Organization [facility] Address [address] [facility] [address] [place] [address] Phone Care Team Providers Care Knot Saw Operator Name Role Phone Pardeep Du MD Primary Care Provider Delilah Cervantes DO Primary Care Provider Kirstin Reyes Primary Care Provide r Encounter Details Date Type Department Care Team (Late st Contact Info) Description 11/29/2023 Procedure Pass [facility], [address] [address] Social History Tobacco Use Types Packs/Day Years [...] documented as of this encounter Care Teams Knot Saw Operator Relationship Specialty Start Date End Date Pardeep Du MD [address] [place] [address], 2nd [place] [address] francisco PCP - General Internal Medicine 04/01/19 05/18/24 Delilah Cervantes DO [address] [place] [address] PCP - General Family Medicine 05/19/24 05/02/25 Kirstin Reyes PA [address] [place] [address] [place] [address] PCP - General Physician Early Childhood Teacher Assistant 05/03/25 documented as of this encounter Additional Source Comments The information contained in this document represents components of the legal health record. It is not the complete legal health record.[facility]
--- OUTSIDE RECORDS SUMMARY | 2025-07-14 13:43 | XMS_ITS | Encounter Summary ---
Author Organization [facility] Address [address] [facility] [address] [place] [address] Phone Care Team Providers Care Cad Programmer Name Role Phone Pardeep Du MD Primary Care Provider [phone] Pardeep Du MD Unavailable Jessie Smith RN Unavailable [phone] Delilah Cervantes DO Primary Care Provider Kirstin Reyes Primary Care Provide r Encounter Details Date Type Department Care Team (Late st Contact Info) Description 09/13/2021 Transcribe Orders Virtual Department 30 [place] [address] Pardeep Du MD [address] [facility], 2nd [place] [address] francisco Social History Tobacco Use Types Packs/Day [...] documented as of this encounter Care Teams Cad Programmer Relationship Specialty Start Date End Date Pardeep Du MD [address] [place] [address], 2nd [place] [address] francisco PCP - General Internal Medicine 04/01/19 05/18/24 Delilah Cervantes DO [address] [place] [address] PCP - General Family Medicine 05/19/24 05/02/25 Kirstin Reyes PA [address] [place] [address] PCP - General Physician Senior Ux Designer 05/03/25 Pardeep Du MD [address] [place] [address], 2nd [place] [address] francisco Insurance Assigned Provider 08/08/19 07/06/23 Jessie Smith, RN [address] [place] [address] [email or web address] iCMP [place] 12/12/22 01/24/23 documented as of this encounter Additional Source Comments The information contained in this document represents components of the legal health record. It is not the complete legal health record.[facility]
--- OUTSIDE RECORDS SUMMARY | 2025-07-14 13:44 | XMS_ITS | Encounter Summary ---
Author Organization [facility] Address [address] [facility] [address] [place] [address] Phone Care Team Providers Care Rack Room Worker Name Role Phone Pardeep Du MD Primary Care Provider Pardeep Du MD Unavailable [phone] Delilah Cervantes DO Primary Care Provider Kirstin Reyes Primary Care Provide r Encounter Details Date Type Department Care Team (Late st Contact Info) Description 04/05/2023 Procedure Pass [facility], [address] [address] Social History Tobacco Use Types Packs/Day Years [...] documented as of this encounter Care Teams Rack Room Worker Relationship Specialty Start Date End Date Pardeep Du MD [address] [place] [address], 2nd [place] [address] francisco PCP - General Internal Medicine 04/01/19 05/18/24 Delilah Cervantes DO [address] [place] [address] PCP - General Family Medicine 05/19/24 05/02/25 Kirstin Reyes PA [address] [place] [address] PCP - General Physician Coil Tester 05/03/25 Pardeep Du MD [address] [place] [address], 2nd [place] [address] francisco [email or web address] Insurance Assigned Provider 08/08/19 07/06/23 documented as of this encounter Additional Source Comments The information contained in this document represents components of the legal health record. It is not the complete legal health record.[facility]
--- OUTSIDE RECORDS SUMMARY | 2025-07-14 13:44 | XMS_ITS | Clinical Summary ---
Author Organization [facility] Address [address] [facility] [address] [place] [address] Phone Care Team Providers Care Sewer Maintenance Supervisor Name Role Phone Kirstin Reyes Primary Care [...] 2 CAPSULAS POR VIA ORAL TODOS LOS PRNIGLE 180 capsule 03/23/20 Active Additional Information Patient [...] would like to switch her doctors to [facility]. Referral placed. Assessment & Plan (12/30/2023 [...] 4:55 PM EST): This is a 52-year-old Citizen [place]-speaking woman who I saw using a automotive parts interpreter today who has lost about 7 [...] 12:16 PM EST): This is a 52-year-old Citizen [place]-speaking woman who started the program at [facility] and did not lose very much weight on the program. The patient is now restarting the program at [facility] in an effort to undergo laparoscopic [...] protein shake or a protein bar or Indonesian yogurt or cottage cheese to be consumed [...] weight loss with the bariatric surgeons at [facility]. She is preparing for surgery. No [...] Department Care Team Description 05/24/2025 Refill Jennifer Hart [facility] [place] [address] [place] [address] Pardeep Du MD Medication Refill 05/03/2025 10:33 AM EDT Anesthesia Event [facility] Endoscopy Admitting Dept Virtual Department [address] [place] [address] Drake Mcgovern MD 05/03/2025 10:30 AM EDT - 05/03/2025 11:00 AM EDT Surgery [facility] Endoscopy Admitting Dept Virtual Department [address] [place] [address] Lani Marion MD COLONOSCOPY 05/03/2025 9:27 AM EDT - 05/03/2025 12:00 PM EDT Hospital Encounter [facility] Endoscopy Admitting Dept Virtual Department [address] [place] [address] Lani Marion MD Discharge Disposition: Home or Self Care 05/03/2025 Procedure Pass [facility] Endoscopy Admitting Dept Virtual Department [address] [place] [address] 04/27/2025 10:00 AM EDT Pre-Admission Testing Pre Procedure Evaluation [address] [place] [address] Lani Marion MD from Last 3 Months [...] this topic Medical Devices Implanted Type Area University Internship Device Identifier Shelf Expiration Date Model / Serial / Lot System Implant Achilles Speedbridge Biocomposite - [id number] Implanted:Qty: 1 on 06/20/2022 by Drake Canales MD at [facility] Left: Ankle ARTHREX 03/27/2025 [id number] / / [id number] Procedures Procedure Name Priority Date/Time Associated Diagnosis Comments FL COLSC FLX W/RMVL OF TUMOR POLYP LESION SNARE TQ 05/03/2025 10:29 AM EDT Gastroesophageal reflux disease without esophagitis Slow transit constipation Hx of colonic polyps Special Needs Hx CHF - cardiac workup done - see notes FL COLONOSCOPY W/BIOPSY SINGLE/MULTIPLE 05/03/2025 10:29 AM EDT Gastroesophageal reflux disease without esophagitis Slow transit constipation Hx of colonic polyps Special Needs Hx CHF - cardiac workup done - see notes FL COLONOSCOPY FLX DX W/COLLJ SPEC WHEN PFRMD [...] Marion MD - 05/03/2025 10:24 AM EDT [facility] Patient Name: Heidi Gupta Attending MD:: LANI MARION MD, Procedure Date: 05/03/2025 10:24 AM Date of : 1970 Age: 54 Admit Type: Outpatient Gender: Female Room: [place] [address] Referring MD: Kirstin Reyes Exam Type: Colonoscopy [...] monitored continuously. The Olympus adult variable colonoscope [id number] #1 was introduced through the anus and [...] 10:24 AM Procedure Code(s): --- Professional --- 01921, Colonoscopy, flexible; with removal of tumor(s), polyp(s), or other lesion(s) by snare technique --- Technical --- 76946, Colonoscopy, flexible; with removal of tumor(s), polyp(s), or other lesion(s) by snare technique CPT copyright 2021 [employer]. All rights reserved. The codes documented in this report are preliminary and upon veterinary laboratory diagnostician reviewmay be revised to meet current compliance requirements. Procedure Date: 05/03/2025 10:24:[address] [place] [address] Kirstin GRAJEDA GI PROCEDURE ORDERABL ES Final Result * Anatomic Pathology (05/03/2025 12:00 AM EDT) 05/03/2025 05/03/2025 1:3 4 PM EDT Narrative SEE NARRATIVE - 05/04/2025 4:43 PM EDT [address] [address] [place] Room Worker: Jonatan Wilks MD Surgical Pathology Report FINAL [...] entirely submitted A1. LT 05/03/2025 Grossing Staff: [facility] Patient Name: HEIDI GUPTA : 1970 (Age: 54) Sex: F [facility] Date of Operation: 05/03/2025 Date of Reported: [...] (12/09/2022 4:15 AM EST) HDL 66 mg/dL [facility] Comment: Interpretation <40 mg/dL: Low HDL cholesterol (major risk factor for CHD) Greater than or equal to 60 mg/dL: High HDL cholesterol ( negative risk factor for CHD) HDL - cholesterol is affected by a number of factors, e.g. smoking, excerise, hormones, sex and age. CHOLESTEROL 163 0 - 240 mg/dL [facility] TRIGLYCERIDES 73 30 - 160 mg/dL [facility] LDL 82 50 - 129 mg/dL [facility] Comment: LDL levels in terms of risk for coronary heart disease: <100 mg/dL: Optimal 100-129 mg/dL: Near or above optimal 130-159 mg/dL: Borderline high 160-189 mg/dL: High >190 mg/dL: Very High CARDIAC RISK RATIO 2.5(L) 3.3 - 4.4 C [facility] Blood 12/09/2022 4:15 AM EST 12/09/2022 4:23 AM EST Olinda Higgins MD LAB BLOOD ORDERABLES Final Result [address] [address] * Pap Smear (03/20/2022 12:00 AM EDT) 03/20/2022 03/21/2022 8:4 4 AM EDT Narrative SEE NARRATIVE - 03/27/2022 11:19 AM EDT [address] [address] [place] Room Worker: Emily Estevez MD [facility] Cytology Report FINAL DIAGNOSIS A. PAP SMEAR [...] 52, 56, 58, 59, 66, 68) by [employer] Onclarity HR-HPV analysis. Clinical correlation is advised. This HPV test was performed at [facility], [address] [place] [address]. This test has been FDA approved for SurePath cervical cytology specimens. The accuracy and precision of this test for all other specimen sources has been verified in the Cytopathology Laboratory of the [facility] and has not been cleared or approved by the U.S. Food and Drug Administration. Clinical correlation is advised. CLINICAL HISTORY Date of Last Menstrual Period: 03-20-2022 Menstrual History: Bleeding, Abnormal Other Clinical Conditions: Screening Pap SPECIMEN SOURCE A: PAP SMEAR (SUREPATH) CE Patient Name: HEIDI GUPTA : 1970 (Age: 51) Sex: F Institution: [facility] Location: [facility] Date of Collection: 03/20/2022 Date of Reported: 03/27/2022 11:19 Results to: Ted Bello MD us Ted Bello MD CYTOLOGY ORDERABLES Final Result SEE NARRATIVE * Hepatitis C antibody, qualitative (01/25/2022 8:02 AM EDT) HCV NON-REACTIV E NON-REACTI VE [facility] Blood 01/25/2022 8:02 AM EDT 01/25/2022 8:06 AM EDT Pardeep Du MD LAB BLOOD ORDERABLES Final Result Performing Organization Address City/[facility] Co de Phone Number [address] [address] * CT CHEST PULMONARY ANGIOGRAM (ACUTE) (09/26/2019 1:20 AM EST) Anatomical Region Laterality Modality Chest, Thoracic Vasculature Comp uted Tomography 09/26/2019 8:24 AM EST Impressions 09/26/2019 8:29 AM EST No pulmonary embolism demonstrated. Peripheral subsegmental emboli could be occult on this examination. No focal airspace infiltrate or pleural effusion. These findings were relayed to the Emergency Department by the [facility] on 09/26/2019. Incidental non-obstructive left nephrolithiasis. TOTAL CTDIvol: 113.60 mGy POS - [id number] Narrative 09/26/2019 8:29 AM EST COMPARISON: 09/25/2019 [...] were relayed to the Emergency Department by [facility] on 09/26/2019. Incidental non-obstructive left nephrolithiasis. TOTAL CTDIvol: 113.60 mGy POS - [id number] us Dilshad Duncan DO IMG CT CHEST Final Result from Last 3 Months or Most Recently Relevant to Health Maintenance Insurance [facility] ACO [facility] ACO PROGRESSIVE INSURANCE Advance Directives For more information, please contact: [phone] (9AM - 5PM [facility], Saturday-Saturday) * Full Code (Latest Code Status on File) Date Activated Date Inactivated Comments 12/09/2022 3:44 AM Question Answer Comments Code Status Confirmed With: PatientFamily Care Teams Sewer Maintenance Supervisor Relationship Specialty Start Date End Date Kirstin Reyes PA [address] [place] [address] [place] [address] PCP - General Physician Mid Level Java Developer 05/03/25 Additional Source Comments The information contained in this document represents components of the legal health record. It is not the complete legal health record.[facility]
--- OUTSIDE RECORDS SUMMARY | 2025-07-14 13:44 | XMS_ITS | Encounter Summary ---
Author Organization [facility] Address [address] [place] [address] Phone Care Team Providers Care Laundry Operator Wash Room Name Role Phone Pardeep Du MD Primary Care Provider Delilah Cervantes DO Primary Care Provider [phone] Kirstin Reyes Primary Care Provide r Encounter Details Date Type Department Care Team (Late st Contact Info) Description 04/06/2024 Procedure Pass [facility], Ct Scan - [address] [id number] Social History Tobacco Use Types Packs/Day Years [...] documented as of this encounter Care Teams Laundry Operator Wash Room Relationship Specialty Start Date End Date Pardeep Du MD [address] [place] [address], 2nd [place] [address] francisco [email or web address] PCP - General Internal Medicine 04/01/19 05/18/24 Delilah Cervantes DO [address] [place] [address] PCP - General Family Medicine 05/19/24 05/02/25 Kirstin Reyes PA [address] [place] [address] [place] [address] PCP - General Physician Shop Steward 05/03/25 documented as of this encounter Additional Source Comments The information contained in this document represents components of the legal health record. It is not the complete legal health record.[facility]
--- OUTSIDE RECORDS SUMMARY | 2025-07-14 13:44 | XMS_ITS | Encounter Summary ---
Author Organization [facility] Address [address] [facility] [address] [place] [address] Phone Care Team Providers Care Secondary Teacher Name Role Phone Pardeep Du MD Primary Care Provider Pardeep Du MD Unavailable [phone] Jessie Smith RN Unavailable [phone] Delilah Cervantes DO Primary Care Provider Kirstin Reyes Primary Care Provide r Encounter Details Date Type Department Care Team (Late st Contact Info) Description 06/20/2022 Procedure Pass [place] Admitting Dept - Virtual Department [address] [place] [address] Social History Tobacco Use Types Packs/Day Years [...] education for yourself related to: Learning the Hebrew language? Completing high school, earning a high [...] documented as of this encounter Care Teams Secondary Teacher Relationship Specialty Start Date End Date Pardeep Du MD [address] [place] [address], 2nd [place] [address] francisco PCP - General Internal Medicine 04/01/19 05/18/24 Delilah Cervantes DO [address] [place] [address] PCP - General Family Medicine 05/19/24 05/02/25 Kirstin Reyes PA [address] [place] [address] [place] [address] PCP - General Physician Mental Health Nurse 05/03/25 Pardeep Du MD [address] [place] [address], [address] [place] [address] francisco [email or web address] Insurance Assigned Provider 08/08/19 07/06/23 Jessie Smith, RN [address] [place] [address] [email or web address] iCMP Resident Assistant Cna 12/12/22 01/24/23 documented as of this encounter Additional Source Comments The information contained in this document represents components of the legal health record. It is not the complete legal health record.[facility]
--- OUTSIDE RECORDS SUMMARY | 2025-07-14 13:44 | XMS_ITS | Encounter Summary ---
Author Organization [facility] Address [address] [facility] [address] [place] [address] Phone Care Team Providers Care Pta Name Role Phone Pardeep Du MD Primary Care Provider [phone] Pardeep Du MD Unavailable [phone] Jessie Smith RN Unavailable [phone] Delilah Cervantes DO Primary Care Provider [phone] Kirstin Reyes Primary Care Provide r Encounter Details Date Type Department Care Team (Late st Contact Info) Description 06/02/2019 Procedure Pass [facility], [address] [place] [address] Social History Tobacco Use Types Packs/Day Years [...] documented as of this encounter Care Teams Pta Relationship Specialty Start Date End Date Pardeep Du MD [address] [place] [address], 2nd [place] [address] francisco PCP - General Internal Medicine 04/01/19 05/18/24 Delilah Cervantes DO [address] [place] [address] PCP - General Family Medicine 05/19/24 05/02/25 Kirstin Reyes PA [address] [place] [address] [place] [address] PCP - General Physician Nursery Hand 05/03/25 Pardeep Du MD [address] [place] [address], 2[address] [place] [address] francisco [email or web address] Insurance Assigned Provider 08/08/19 07/06/23 Jessie Smith, RN [address] [place] [id number] [email or web address] iCMP Lamp Shade Maker 12/12/22 01/24/23 documented as of this encounter Additional Source Comments The information contained in this document represents components of the legal health record. It is not the complete legal health record.[facility]
--- OUTSIDE RECORDS SUMMARY | 2025-07-14 13:44 | XMS_ITS | Encounter Summary ---
Author Organization [facility] Address [address] [place] [address] Phone Care Team Providers Care Ladle Liner Helper Name Role Phone Helen Delilah Primary Care Provider Kirstin Reyes Primary Care Provide r Encounter Details Date Type Department Care Team (Latest Contact Info) Description 08/06/2024 Transcribe Orders Virtual Department [address] [place] [address] Gilda Carranza PA-C [address] [place] [address] [email or web address] Lesion of ovary (Primary Dx) Social History [...] documented as of this encounter Care Teams Ladle Liner Helper Relationship Specialty Start Date End Date eDlilah Cervantes DO [address] [place] [address] [place] [address] PCP - General Family Medicine 05/19/24 05/02/25 Kirstin Reyes PA [address] [place] [address] [place] [address] PCP - General Physician Pot Annealer 05/03/25 documented as of this encounter Additional Source Comments The information contained in this document represents components of the legal health record. It is not the complete legal health record.[facility]
--- OUTSIDE RECORDS SUMMARY | 2025-07-14 13:44 | XMS_ITS | Encounter Summary ---
Author Organization [facility] Address [address] [facility] [address] [place] [address] Phone Care Team Providers Care Concrete Gun Operator Name Role Phone Pardeep Du MD Primary Care Provider Pardeep Du MD Unavailable [phone] Jessie Smith RN Unavailable [phone] Delilah Cervantes DO Primary Care Provider Kirstin Reyes Primary Care Provide r Encounter Details Date Type Department Care Team (Late st Contact Info) Description 03/23/2021 Procedure Pass [facility], [address] [place] [address] Social History Tobacco Use Types Packs/Day Years [...] education for yourself related to: Learning the Upper Sorbian language? Completing high school, earning a high [...] as of this encounter Care Teams Concrete Gun Operator Relationship Specialty Start Date End Date Pardeep Du MD [address] [place] [address], 2nd [place] [address] francisco PCP - General Internal Medicine 04/01/19 05/18/24 Delilah Cervantes DO [address] [place] [address] PCP - General Family Medicine 05/19/24 05/02/25 Kirstin Reyes PA [address] [place] [address] [place] [address] PCP - General Physician Diabetic Educator 05/03/25 Pardeep Du MD [address] [place] [address], 2nd [place] [address] francisco [email or web address] Insurance Assigned Provider 08/08/19 07/06/23 Jessie Smith, RN [address] [place] [address] [email or web address] iCMP Cover Mat Machine Operator 12/12/22 01/24/23 documented as of this encounter Additional Source Comments The information contained in this document represents components of the legal health record. It is not the complete legal health record.[facility]
== END 2025-07-14 10:48 | disposition home or self-care (01) ==
LOC: HO.LAB 10:47
DX: Z00.00 Encounter for general adult medical examination without abnormal findings (principal); Z13.29 Encounter for screening for other suspected endocrine disorder; Z13.21 Encounter for screening for nutritional disorder; I50.32 Chronic diastolic (congestive) heart failure; L65.9 Nonscarring hair loss, unspecified; E03.8 Other specified hypothyroidism
CPT/HCPCS: 36415; 80061; 82306; 82607; 82746; 83540; 84439; 84443

== ENCOUNTER 2025-08-03 06:27 | Outpatient (REF) | payer OTHER, SELFPAY ==
--- NOTE | ~2025-08-03 | FL_ITS ---
EXAMINATION: FL GUIDANCE ONLY HISTORY: M25.562 - Pain in left knee COMPARISON: None available. TECHNIQUE: Fluoroscopy time: 4.5 seconds. Cumulative Dose: 1.65 mGy. Images: 2. FINDINGS: Fluoroscopic spot films of the left knee demonstrate a needle in place and contrast material in the joint space. FL/FL guidance in treatment room IMPRESSION: Fluoroscopy during procedure. Please see procedure report for additional information. Electronically signed by: Gonzalez Chin MD 08/03/2025 01:39 PM EDT
--- OUTSIDE RECORDS SUMMARY | 2025-08-03 06:29 | XMS_ITS | Encounter Summary ---
Author Organization [facility] Address [address] [facility] [address] [place] [address] Phone Care Team Providers Care Healthcare Management Consultant Name Role Phone Pardeep Du MD Primary Care Provider [phone] Pardeep Du MD Unavailable [phone] Jessie Smith RN Unavailable [phone] Delilah Cervantes DO Primary Care Provider Kirstin Reyes Primary Care Provide r Encounter Details Date Type Department Care Team (Late st Contact Info) Description 05/10/2020 Procedure Pass [facility], [address] [place] [address] Social History Tobacco Use Types Packs/Day Years [...] education for yourself related to: Learning the Georgian language? Completing high school, earning a high [...] documented as of this encounter Care Teams Healthcare Management Consultant Relationship Specialty Start Date End Date Pardeep Du MD [address] [place] [address], [address] [place] [address] francisco PCP - General Internal Medicine 04/01/19 05/18/24 Delilah Cervantes DO [address] [place] [address] PCP - General Family Medicine 05/19/24 05/02/25 Kirstin Reyes PA [address] [place] [address] [place] [address] PCP - General Physician Livestock Producer 05/03/25 Pardeep Du MD [address] [place] [address], [address] [place] [address] francisco [email or web address] Insurance Assigned Provider 08/08/19 07/06/23 Jessie Smith, RN [address] [place] [phone] iCMP Assistant Director Of Financial Aid 12/12/22 01/24/23 documented as of this encounter Additional Source Comments The information contained in this document represents components of the legal health record. It is not the complete legal health record.[facility]
--- OUTSIDE RECORDS SUMMARY | 2025-08-03 06:29 | XMS_ITS | Encounter Summary ---
Author Organization [facility] Address [address] [facility] [address] [place] [address] Phone Care Team Providers Care Head Butler Name Role Phone Kirstin Reyes Primary Care Provide r Encounter Details Date Type Department Care Team (Late st Contact Info) Description 05/03/2025 Procedure Pass [facility] Endoscopy Admitting Dept Virtual Department [address] [place] [address] Social History Tobacco Use Types Packs/Day Years [...] documented as of this encounter Care Teams Head Butler Relationship Specialty Start Date End Date Kirstin Reyes PA [address] [place] [address] [place] [address] PCP - General Physician Brands Editor 05/03/25 documented as of this encounter Additional Source Comments The information contained in this document represents components of the legal health record. It is not the complete legal health record.[facility]
--- OUTSIDE RECORDS SUMMARY | 2025-08-03 06:29 | XMS_ITS | Encounter Summary ---
Author Organization [facility] Address [address] [facility] [address] [place] [address] Phone Care Team Providers Care Executive Director Of Nursing Name Role Phone Pardeep Du MD Primary Care Provider [phone] Pardeep Du MD Unavailable [phone] Jessie Smith RN Unavailable [phone] Delilah Cervantes DO Primary Care Provider [phone] Kirstin Reyes Primary Care Provide r Reason [...] Expiration Date Visits Re quested Visits Authorized [id number] Closed 05/17/2020 05/17/2021 3 3 Encounter Details Date Type Department Care Team (Late st Contact Info) Description 05/10/2020 Ancillary Orders Virtual Department [address] [place] [address] Shazia Yeh NP [address] [place] [phone] [email or web address] Derangement of anterior horn of lateral [...] education for yourself related to: Learning the Cymro language? Completing high school, earning a high [...] as of this encounter Care Teams Executive Director Of Nursing Relationship Specialty Start Date End Date Pardeep Du MD [address] [place] [address], [address] [place] [address] francisco PCP - General Internal Medicine 04/01/19 05/18/24 Delilah Cervantes DO [address] [place] [address] PCP - General Family Medicine 05/19/24 05/02/25 Kirstin Reyes PA [address] [place] [address] [place] [address] PCP - General Physician Boat Operator 05/03/25 Pardeep Du MD [address] [place] [address], [address] [place] [address] francisco Insurance Assigned Provider 08/08/19 07/06/23 Jessie Smith, MEGHAN [address] [place] [address] [email or web address] iCMP Overnight Caregiver 12/12/22 01/24/23 documented as of this encounter Additional Source Comments The information contained in this document represents components of the legal health record. It is not the complete legal health record.[facility]
--- OUTSIDE RECORDS SUMMARY | 2025-08-03 06:29 | XMS_ITS | Encounter Summary ---
Author Organization [facility] Address [address] [facility] [address] [place] [address] Phone Care Team Providers Care Model And Mold Maker Name Role Phone Pardeep Du MD Primary Care Provider [phone] Pardeep Du MD Unavailable [phone] Jessie Smith RN Unavailable [phone] Delilah Cervantes DO Primary Care Provider Kirstin Reyes Primary Care Provide r Encounter Details Date Type Department Care Team (Late st Contact Info) Description 09/16/2019 Ancillary Orders [facility],Outside Imaging [address] [place], [place] [id number] System, Provider Not In, [facility] [address] [address] Social History Tobacco Use Types Packs/Day Years [...] education for yourself related to: Learning the Mohawk language? Completing high school, earning a high [...] documented as of this encounter Care Teams Model And Mold Maker Relationship Specialty Start Date End Date Pardeep Du MD [address] [place] [address], [address] [place] [address] francisco PCP - General Internal Medicine 04/01/19 05/18/24 Delilah Cervantes DO [address] [place] [address] PCP - General Family Medicine 05/19/24 05/02/25 Kirstin Reyes PA [address] [place] [address] [place] [address] PCP - General Physician Forensic Accountant 05/03/25 Pardeep Du MD [address] [place] [address] francisco Insurance Assigned Provider 08/08/19 07/06/23 Jessie Smith, RN [address] [place] [id number] iCMP Supervisor Fabrication 12/12/22 01/24/23 documented as of this encounter Additional Source Comments The information contained in this document represents components of the legal health record. It is not the complete legal health record.[facility]
--- OUTSIDE RECORDS SUMMARY | 2025-08-03 06:29 | XMS_ITS | Encounter Summary ---
Author Organization [facility] Address [address] [facility] [address] [place] [address] Phone Care Team Providers Care Fusing Line Inspector Name Role Phone Pardeep Du MD Primary Care Provider [phone]- [phone] Pardeep Du MD Unavailable [phone] Jessie Smith RN Unavailable [phone] Delilah Cervantes DO Primary Care Provider Kirstin Reyes Primary Care Provide r Encounter Details Date Type Department Care Team (Late st Contact Info) Description 09/16/2019 Ancillary Orders [facility],Outside Imaging 30 [place], [place] [phone] System, Provider Not In, [facility] Partners [address] [address] Social History Tobacco Use Types Packs/Day Years [...] documented as of this encounter Care Teams Fusing Line Inspector Relationship Specialty Start Date End Date Pardeep Du MD [address] [place] [address], [address] [place] [address] francisco PCP - General Internal Medicine 04/01/19 05/18/24 Delilah Cervantes DO [address] [place] [address] PCP - General Family Medicine 05/19/24 05/02/25 Kirstin Reyes PA [address] [place] [address] [place] [address] PCP - General Physician Skull Grinder 05/03/25 Pardeep Du MD [address] [place] [address] francisco Insurance Assigned Provider 08/08/19 07/06/23 Jessie Smith, RN [address] [place] [address] iCMP Pet Groomer 12/12/22 01/24/23 documented as of this encounter Additional Source Comments The information contained in this document represents components of the legal health record. It is not the complete legal health record.[facility]
--- OUTSIDE RECORDS SUMMARY | 2025-08-03 06:29 | XMS_ITS | Encounter Summary ---
Author Organization [facility] Address [address] [facility] [address] [place] [address] Phone Care Team Providers Care Senior Revenue Accountant Name Role Phone Pardeep Du MD Primary Care Provider +[phone]- [phone] Pardeep Du MD Unavailable [phone] Jessie Smith RN Unavailable [phone] Delilah Cervantes DO Primary Care Provider Kirstin Reyes Primary Care Provide r Encounter Details Date Type Department Care Team (Late st Contact Info) Description 12/17/2022 Procedure Pass [facility], [address] [place] [address] Social History Tobacco Use Types Packs/Day Years [...] as of this encounter Care Teams Senior Revenue Accountant Relationship Specialty Start Date End Date Pardeep Du MD [address] [place] [address], 2nd [place] [address] francisco PCP - General Internal Medicine 04/01/19 05/18/24 Delilah Cervantes DO [address] [place] [address] PCP - General Family Medicine 05/19/24 05/02/25 Kirstin Reyes PA [address] [place] [address] [place] [address] PCP - General Physician Mottler Machine Feeder 05/03/25 Pardeep Du MD [address] [place] [address], 2nd [place] [address] francisco [email or web address] Insurance Assigned Provider 08/08/19 07/06/23 Jessie Smith, RN [address] [place] [address] [email or web address] iCMP Press Brake Operator 12/12/22 01/24/23 documented as of this encounter Additional Source Comments The information contained in this document represents components of the legal health record. It is not the complete legal health record.[facility]
--- OUTSIDE RECORDS SUMMARY | 2025-08-03 06:29 | XMS_ITS | Encounter Summary ---
Author Organization [facility] Address [address] [facility] [address] [place] [address] Phone Care Team Providers Care Kennel Helper Name Role Phone Pardeep Du MD Primary Care Provider [phone]- [phone] Pardeep Du MD Unavailable [phone] Jessie Smith RN Unavailable [phone] Delilah Cervantes DO Primary Care Provider [phone] Kirstin Reyes Primary Care Provide r Encounter Details Date Type Department Care Team (Late st Contact Info) Description 10/18/2020 Procedure Pass [facility] - [address] [place] [address] Social History Tobacco Use Types Packs/Day Years [...] documented as of this encounter Care Teams Kennel Helper Relationship Specialty Start Date End Date Pardeep Du MD [address] [place] [address], 2nd [place] [address] francisco PCP - General Internal Medicine 04/01/19 05/18/24 Delilah Cervantes DO [address] [place] [address] PCP - General Family Medicine 05/19/24 05/02/25 Kirstin Reyes PA [address] [place] [address] [place] [address] PCP - General Physician Procurement Representative 05/03/25 Pardeep Du MD [address] [place] [address], 2nd [place] [address] francisco [email or web address] Insurance Assigned Provider 08/08/19 07/06/23 Jessie Smith, RN [address] [place] [address] [email or web address] iCMP Audit Specialist 12/12/22 01/24/23 documented as of this encounter Additional Source Comments The information contained in this document represents components of the legal health record. It is not the complete legal health record.[facility]
--- OUTSIDE RECORDS SUMMARY | 2025-08-03 06:29 | XMS_ITS | Encounter Summary ---
Author Organization [facility] Address [address] [facility] [address] [place] [address] Phone Care Team Providers Care Hose Inspector Name Role Phone Pardeep Du MD Primary Care Provider [phone]- [phone] Pardeep Du MD Unavailable [phone] Jessie Smith RN Unavailable [phone] Delilah Cervantes DO Primary Care Provider Kirstin Reyes Primary Care Provide r Encounter Details Date Type Department Care Team (Late st Contact Info) Description 09/16/2019 Ancillary Orders [facility],Outside Imaging 30 [place], [place] [phone] System, Provider Not In, PhD Partners [address] [address] Social History Tobacco Use Types Packs/Day Years [...] documented as of this encounter Care Teams Hose Inspector Relationship Specialty Start Date End Date Pardeep Du MD [address] [place] [address], [address] [place] [address] francisco PCP - General Internal Medicine 04/01/19 05/18/24 Delilah Cervantes DO [address] [place] [address] PCP - General Family Medicine 05/19/24 05/02/25 Kirstin Reyes PA [address] [place] [address] [place] [address] PCP - General Physician Conductor/Engineer 05/03/25 Pardeep Du MD [address] [place] [address] francisco Insurance Assigned Provider 08/08/19 07/06/23 Jessie Smith, RN [address] [place] [address] iCMP Central Lab Technician 12/12/22 01/24/23 documented as of this encounter Additional Source Comments The information contained in this document represents components of the legal health record. It is not the complete legal health record.[facility]
--- OUTSIDE RECORDS SUMMARY | 2025-08-03 06:29 | XMS_ITS | Encounter Summary ---
Author Organization [facility] Address [address] [facility] [address] [place] [address] Phone Care Team Providers Care Asset Availability Leader Name Role Phone Pardeep Du MD Primary Care Provider [phone]- [phone] Pardeep Du MD Unavailable [phone] Jessie Smith RN Unavailable [phone] Delilah Cervantes DO Primary Care Provider Kirstin Reyes Primary Care Provide r Encounter Details Date Type Department Care Team (Late st Contact Info) Description 02/28/2022 Procedure Pass [facility] - [address] [place] [address] Social History Tobacco Use Types Packs/Day Years [...] documented as of this encounter Care Teams Asset Availability Leader Relationship Specialty Start Date End Date Pardeep Du MD [address] [place] [address], 2nd [place] [address] francisco PCP - General Internal Medicine 04/01/19 05/18/24 Delilah Cervantes DO [address] [place] [address] PCP - General Family Medicine 05/19/24 05/02/25 Kirstin Reyes PA NPI: [id number] [place] [address] [place] [address] PCP - General Physician Drafter (Cad) Electrical 05/03/25 Pardeep Du MD [address] [place] [address], 2nd [place] [address] francisco [email or web address] Insurance Assigned Provider 08/08/19 07/06/23 Jessie Smith, RN [address] [place] [address] [email or web address] iCMP Hvac Technician 12/12/22 01/24/23 documented as of this encounter Additional Source Comments The information contained in this document represents components of the legal health record. It is not the complete legal health record.[facility]
--- OUTSIDE RECORDS SUMMARY | 2025-08-03 06:29 | XMS_ITS | Encounter Summary ---
Author Organization [facility] Address [address] [facility] [address] [place] [address] Phone Care Team Providers Care Mini Bar Attendant Name Role Phone Pardeep Du MD Primary Care Provider [phone] Pardeep Du MD Unavailable [phone] Jessie Smith RN Unavailable Delilah Cervantes DO Primary Care Provider Kirstin Reyes Primary Care Provide r Encounter Details Date Type Department Care Team (Late st Contact Info) Description 05/04/2019 Ancillary Orders [facility] [address] [place] [address] [place] [address] Andrew Alberto MD [address] [place] [address] [facility] [place] [address] [email or web address] Pain in both knees, unspecified [...] education for yourself related to: Learning the Bulgarian language? Completing high school, earning a high [...] to medium sized joint effusion. POS - [id number] Narrative 05/04/2019 1:28 PM EDT Left knee [...] to medium sized joint effusion. POS - [id number] Andrew Alberto MD IMG XR LOWER EXTREMITY F inal Result * XR KNEE 4 OR MORE VIEWS (RIGHT) (05/04/2019 1:07 PM EDT) Anatomical Region Laterality Modality Knee Right Radiographic Jesika ging 05/04/2019 1:27 PM EDT Impressions 05/04/2019 1:28 PM EDT Moderate medial compartment osteoarthritis. No erosive changes or bony lesion seen. Prominent joint effusion. POS - [id number] Narrative 05/04/2019 1:28 PM EDT Right knee [...] bonylesion seen. Prominent joint effusion. POS - [id number] Andrew Alberto MD IMG XR LOWER EXTREMITY [...] documented as of this encounter Care Teams Mini Bar Attendant Relationship Specialty Start Date End Date Pardeep Du MD [address] [place] [address], [address] [place] [address] francisco PCP - General Internal Medicine 04/01/19 05/18/24 Delilah Cervantes DO [address] [place] [address] PCP - General Family Medicine 05/19/24 05/02/25 Kirstin Reyes PA [address] [place] [address] PCP - General Physician Title Attorney 05/03/25 Pardeep Du MD [address] [place] [address] francisco Insurance Assigned Provider 08/08/19 07/06/23 Jessie Smith, RN [address] [place] [address] iCMP Adjunct Latin Professor 12/12/22 01/24/23 documented as of this encounter Additional Source Comments The information contained in this document represents components of the legal health record. It is not the complete legal health record.[facility]
--- OUTSIDE RECORDS SUMMARY | 2025-08-03 06:29 | XMS_ITS | Encounter Summary ---
Author Organization [facility] Address [address] [facility] [address] [place] [address] Phone Care Team Providers Care Poultry Process Worker Name Role Phone Pardeep Du MD Primary Care Provider [phone]- [phone] Pardeep Du MD Unavailable [phone] Jessie Smith RN Unavailable [phone] Delilah Cervantes DO Primary Care Provider Kirstin Reyes Primary Care Provide r Encounter Details Date Type Department Care Team (Late st Contact Info) Description 02/28/2022 Procedure Pass [facility] - [address] [place] [address] Social History Tobacco Use Types Packs/Day Years [...] education for yourself related to: Learning the Luxembourgish language? Completing high school, earning a high [...] documented as of this encounter Care Teams Poultry Process Worker Relationship Specialty Start Date End Date Pardeep Du MD [address] [place] [address], 2nd [place] [address] francisco PCP - General Internal Medicine 04/01/19 05/18/24 Delilah Cervantes DO [address] [place] [address] PCP - General Family Medicine 05/19/24 05/02/25 Kirstin Reyes PA [address] [place] [address] [place] [address] PCP - General Physician Bioinformatics Scientist 05/03/25 Pardeep Du MD [address] [place] [address], 2nd [place] [address] francisco [email or web address] Insurance Assigned Provider 08/08/19 07/06/23 Jessie Smith, RN [address] [place] [address] [email or web address] iCMP Rn Spine 12/12/22 01/24/23 documented as of this encounter Additional Source Comments The information contained in this document represents components of the legal health record. It is not the complete legal health record.[facility]
--- OUTSIDE RECORDS SUMMARY | 2025-08-03 06:29 | XMS_ITS | Encounter Summary ---
Author Organization [facility] Address [address] [facility] [address] [place] [address] Phone Care Team Providers Care Cloth Tearer Name Role Phone Pardeep Du MD Primary Care Provider [phone]- [phone] Pardeep Du MD Unavailable [phone] Jessie Smith RN Unavailable [phone] Delilah Cervantes DO Primary Care Provider Kirstin Reyes Primary Care Provide r Encounter Details Date Type Department Care Team (Late st Contact Info) Description 09/16/2019 Ancillary Orders [facility],Outside Imaging 30 [place], [place] [phone] System, Provider Not In, PhD Partners [address] [address] Social History Tobacco Use Types Packs/Day Years [...] as of this encounter Care Teams Cloth Tearer Relationship Specialty Start Date End Date Pardeep Du MD [address] [place] [address], [address] [place] [address] francisco PCP - General Internal Medicine 04/01/19 05/18/24 Delilah Cervantes DO [address] [place] [address] PCP - General Family Medicine 05/19/24 05/02/25 Kirstin Reyes PA [address] [place] [address] [place] [address] PCP - General Physician Radiation Oncologist 05/03/25 Pardeep Du MD [address] [place] [address] francisco Insurance Assigned Provider 08/08/19 07/06/23 Jessie Smith, RN [address] [place] [address] iCMP Director Weights And Measures 12/12/22 01/24/23 documented as of this encounter Additional Source Comments The information contained in this document represents components of the legal health record. It is not the complete legal health record.[facility]
--- OUTSIDE RECORDS SUMMARY | 2025-08-03 06:29 | XMS_ITS | Clinical Summary ---
Author Organization [employer] Address [address] [facility] 7t [place] [address] Care Team Providers Care Topographical Field Assistant Name Role Phone Unavailable Primary Care [...] to complete this topic Insurance [facility] C3
--- OUTSIDE RECORDS SUMMARY | 2025-08-03 06:29 | XMS_ITS | Encounter Summary ---
Author Organization [facility] Address [address] [facility] [address] [place] [address] Phone Care Team Providers Care Long Distance Billing Operator Name Role Phone Pardeep Du MD Primary Care Provider [phone]- [phone] Pardeep Du MD Unavailable [phone] Jessie Smith RN Unavailable [phone] Delilah Cervantes DO Primary Care Provider Kirstin Reyes Primary Care Provide r Encounter Details Date Type Department Care Team (Late st Contact Info) Description 09/16/2019 Ancillary Orders [facility],Outside Imaging 30 [place], [place] [phone] System, Provider Not In, PhD Partners [address] [address] Social History Tobacco Use Types Packs/Day Years [...] education for yourself related to: Learning the Macedonian language? Completing high school, earning a high [...] documented as of this encounter Care Teams Long Distance Billing Operator Relationship Specialty Start Date End Date Pardeep Du MD [address] [place] [address], [address] [place] [address] francisco PCP - General Internal Medicine 04/01/19 05/18/24 Delilah Cervantes DO [address] [place] [address] PCP - General Family Medicine 05/19/24 05/02/25 Kirstin Reyes PA [address] [place] [address] [place] [address] PCP - General Physician Scale Balancer 05/03/25 Pardeep Du MD [address] [place] [address] francisco Insurance Assigned Provider 08/08/19 07/06/23 Jessie Smith, RN [address] [place] [address] iCMP Computer Operations Analyst 12/12/22 01/24/23 documented as of this encounter Additional Source Comments The information contained in this document represents components of the legal health record. It is not the complete legal health record.[facility]
--- OUTSIDE RECORDS SUMMARY | 2025-08-03 06:29 | XMS_ITS | Encounter Summary ---
Author Organization [facility] Address [address] [facility] [address] [place] [address] Phone Care Team Providers Care Land Department Head Name Role Phone Pardeep Du MD Primary Care Provider [phone] Pardeep Du MD Unavailable [phone] Jessie Smith RN Unavailable [phone] Delilah Cervantes DO Primary Care Provider [phone] Kirstin Reyes Primary Care Provide r Encounter Details Date Type Department Care Team (Late st Contact Info) Description 04/06/2022 Procedure Pass [facility] Admitting Dept Virtual Department 30 [place], [place] [phone] Social History Tobacco Use Types Packs/Day Years [...] education for yourself related to: Learning the Filipino language? Completing high school, earning a high [...] documented as of this encounter Care Teams Land Department Head Relationship Specialty Start Date End Date Pardeep Du MD [address] [place] [address], 2nd [place] [address] francisco PCP - General Internal Medicine 04/01/19 05/18/24 Delilah Cervantes DO [address] [place] [address] PCP - General Family Medicine 05/19/24 05/02/25 Kirstin Reyes PA [address] [place] [address] [place] [address] PCP - General Physician Band Master 05/03/25 Pardeep Du MD [address] [place] [address], 2nd [place] [address] francisco [email or web address] Insurance Assigned Provider 08/08/19 07/06/23 Jessie Smith, RN [address] [place] [address] [email or web address] iCMP Tire Vulcanizer 12/12/22 01/24/23 documented as of this encounter Additional Source Comments The information contained in this document represents components of the legal health record. It is not the complete legal health record.[facility]
--- OUTSIDE RECORDS SUMMARY | 2025-08-03 06:29 | XMS_ITS | Encounter Summary ---
Author Organization [facility] Address [address] [facility] [address] [place] [address] Phone Care Team Providers Care Echocardiologist Name Role Phone Pardeep Du MD Primary Care Provider Pardeep Du MD Unavailable [phone] Jessie Smith RN Unavailable [phone] Delilah Cervantes DO Primary Care Provider Kirstin Reyes Primary Care Provide r Encounter Details Date Type Department Care Team (Late st Contact Info) Description 10/18/2020 Procedure Pass [facility] - [address] [place] [address] Social History Tobacco Use Types Packs/Day Years [...] documented as of this encounter Care Teams Echocardiologist Relationship Specialty Start Date End Date Pardeep Du MD [address] [place] [address], 2nd [place] [address] francisco PCP - General Internal Medicine 04/01/19 05/18/24 Delilah Cervantes DO [address] [place] [address] PCP - General Family Medicine 05/19/24 05/02/25 Kirstin Reyes PA [address] [place] [address] [place] [address] PCP - General Physician Processing Mgr 05/03/25 Pardeep Du MD [address] [place] [address], 2nd [place] [address] francisco [email or web address] Insurance Assigned Provider 08/08/19 07/06/23 Jessie Smith, RN 10 [place] [address] [email or web address] iCMP Log Processor Operator 12/12/22 01/24/23 documented as of this encounter Additional Source Comments The information contained in this document represents components of the legal health record. It is not the complete legal health record.[facility]
--- OUTSIDE RECORDS SUMMARY | 2025-08-03 06:29 | XMS_ITS | Encounter Summary ---
Author Organization [facility] Address [address] [facility] [address] [place] [address] Phone Care Team Providers Care Asset Management Coordinator Name Role Phone Pardeep Du MD Primary Care Provider [phone]- [phone] Pardeep Du MD Unavailable [phone] Jessie Smith RN Unavailable [phone] Delilah Cervantes DO Primary Care Provider Kirstin Reyes Primary Care Provide r Encounter Details Date Type Department Care Team (Late st Contact Info) Description 09/16/2019 Ancillary Orders [facility],Outside Imaging 30 [place], [place] [phone] System, Provider Not In, PhD Partners [address] [address] Social History Tobacco Use Types Packs/Day Years [...] as of this encounter Care Teams Asset Management Coordinator Relationship Specialty Start Date End Date Pardeep Du MD [address] [place] [address], [address] [place] [address] francisco PCP - General Internal Medicine 04/01/19 05/18/24 Delilah Cervantes DO [address] [place] [address] PCP - General Family Medicine 05/19/24 05/02/25 Kirstin Reyes PA [address] [place] [address] [place] [address] PCP - General Physician Visual Journalist 05/03/25 Pardeep Du MD [address] [place] [address] francisco Insurance Assigned Provider 08/08/19 07/06/23 Jessie Smith, RN [address] [place] [address] iCMP Mica Layer 12/12/22 01/24/23 documented as of this encounter Additional Source Comments The information contained in this document represents components of the legal health record. It is not the complete legal health record.[facility]
--- OUTSIDE RECORDS SUMMARY | 2025-08-03 06:29 | XMS_ITS | Encounter Summary ---
Author Organization [facility] Address [address] [facility] [address] [place] [address] Phone Care Team Providers Care Certified Orthoptist Name Role Phone Pardeep Du MD Primary Care Provider Pardeep Du MD Unavailable [phone] Jessie Smith RN Unavailable Delilah Cervantes DO Primary Care Provider Kirstin Reyes Primary Care Provide r Encounter Details Date Type Department Care Team (Late st Contact Info) Description 03/05/2022 Procedure Pass [facility], Ct Scan - [address] [address] Social History Tobacco Use Types Packs/Day Years [...] education for yourself related to: Learning the Ivorian language? Completing high school, earning a high [...] 1:02 PM EDT Drake Cha, MEGHAN * Evangeline Suicide Severity Rating Scale (Screener/Recent Self-Report) Question [...] documented as of this encounter Care Teams Certified Orthoptist Relationship Specialty Start Date End Date Pardeep Du MD [address] [place] [address], [address] [place] [address] francisco PCP - General Internal Medicine 04/01/19 05/18/24 Delilah Cervantes DO [address] [place] [address] PCP - General Family Medicine 05/19/24 05/02/25 Kirstin Reyes PA [address] [place] [address] PCP - General Physician Community Engagement Coordinator 05/03/25 Pardepe Du MD [address] [place] [address], [address] [place] [address] francisco [email or web address] Insurance Assigned Provider 08/08/19 07/06/23 Jessie Smith, RN [address] [place] [address] [email or web address] iCMP Insurance Follow Up Rep 12/12/22 01/24/23 documented as of this encounter Additional Source Comments The information contained in this document represents components of the legal health record. It is not the complete legal health record.[facility]
--- OUTSIDE RECORDS SUMMARY | 2025-08-03 06:29 | XMS_ITS | Encounter Summary ---
Author Organization [facility] Address [address] [facility] [address] [place] [address] Phone Care Team Providers Care Explosive Operator Name Role Phone Pardeep Du MD Primary Care Provider [phone] Pardeep Du MD Unavailable [phone] Jessie Smith RN Unavailable [phone] Delilah Cervantes DO Primary Care Provider [phone] Kirstin Reyes Primary Care Provide r Encounter Details Date Type Department Care Team (Late st Contact Info) Description 06/30/2019 Procedure Pass [facility], [address] [place] [address] Social History Tobacco Use Types Packs/Day Years [...] education for yourself related to: Learning the Welsh language? Completing high school, earning a high [...] of this encounter Care Teams Explosive Operator Relationship Specialty Start Date End Date Pardeep Du MD [address] [place] [address], 2nd [place] [address] [email or web address] PCP - General Internal Medicine 04/01/19 05/18/24 Delilah Cervantes DO [address] [place] [address] PCP - General Family Medicine 05/19/24 05/02/25 Kirstin Reyes PA [address] [place] [address] [place] [address] PCP - General Physician Farm Appraiser 05/03/25 Pardeep Du MD [address] [place] [address], 2nd [place] [address] francisco [email or web address] Insurance Assigned Provider 08/08/19 07/06/23 Jessie Smith, RN [address] [place] [address] [email or web address] iCMP Rpg Programmer 12/12/22 01/24/23 documented as of this encounter Additional Source Comments The information contained in this document represents components of the legal health record. It is not the complete legal health record.[facility]
--- OUTSIDE RECORDS SUMMARY | 2025-08-03 06:29 | XMS_ITS | Encounter Summary ---
Author Organization [facility] Address [address] [facility] [address] [place] [address] Phone Care Team Providers Care Route Aide Name Role Phone Pardeep Du MD Primary Care Provider [phone] Delilah Cervantes DO Primary Care Provider Kirstin Reyes Primary Care Provide r Encounter Details Date Type Department Care Team (Late st Contact Info) Description 11/29/2023 Procedure Pass [facility], [address] [address] Social History Tobacco Use Types Packs/Day Years [...] documented as of this encounter Care Teams Route Aide Relationship Specialty Start Date End Date Pardeep Du MD [address] [place] [address], 2nd [place] [address] francisco PCP - General Internal Medicine 04/01/19 05/18/24 Delilah Cervantes DO [address] [place] [address] PCP - General Family Medicine 05/19/24 05/02/25 Kirstin Reyes PA [address] [place] [address] [place] [address] PCP - General Physician Talent Development Consultant 05/03/25 documented as of this encounter Additional Source Comments The information contained in this document represents components of the legal health record. It is not the complete legal health record.[facility]
--- OUTSIDE RECORDS SUMMARY | 2025-08-03 06:30 | XMS_ITS | Encounter Summary ---
Author Organization [facility] Address [address] [facility] [address] [place] [address] Phone Care Team Providers Care Mercury Cell Cleaner Name Role Phone Pardeep Du MD Primary Care Provider Delilah Cervantes DO Primary Care Provider Kirstin Reyes Primary Care Provide r Encounter Details Date Type Department Care Team (Late st Contact Info) Description 04/06/2024 Procedure Pass [facility], Ct Scan - [address] [id number] Social History Tobacco Use Types Packs/Day Years [...] documented as of this encounter Care Teams Mercury Cell Cleaner Relationship Specialty Start Date End Date Pardeep Du MD [address] [place] [address], 2nd [place] [address] francisco [email or web address] PCP - General Internal Medicine 04/01/19 05/18/24 Delilah Cervantes DO [address] [place] [address] PCP - General Family Medicine 05/19/24 05/02/25 Kirstin Reyes PA [address] [place] [address] [place] [address] PCP - General Physician Radiotelephone Operator 05/03/25 documented as of this encounter Additional Source Comments The information contained in this document represents components of the legal health record. It is not the complete legal health record.[facility]
--- OUTSIDE RECORDS SUMMARY | 2025-08-03 06:30 | XMS_ITS | Encounter Summary ---
Author Organization [facility] Address [address] [facility] [address] [place] [address] Phone Care Team Providers Care Metabolic Specialist Name Role Phone Pardeep Du MD [...] CONTRAST Gilda Carranza PA-C Phone: tel: fax: [email or web address] Referral ID Status Reason Start Date Expiration Date Visits Re quested Visits Authorized [id number] Closed 07/07/2024 09/05/2024 1 1 Encounter Details Date Type Department Care Team (Latest Contact Info) Description 04/06/2024 Transcribe Orders Virtual Department 30 [place] [address] Gilda Carranza PA-C [address] [place] [address] LLQ abdominal pain (Primary Dx); Constipation, unspecified [...] abdomen pain, [facility] as well as constipation [...] documented as of this encounter Care Teams Metabolic Specialist Relationship Specialty Start Date End Date Pardeep Du MD [address] [place] [address], 2nd [place] [address] francisco [email or web address] PCP - General Internal Medicine 04/01/19 05/18/24 Delilah Cervantes DO [address] [place] [address] PCP - General Family Medicine 05/19/24 05/02/25 Kirstin Reyes PA [address] [place] [address] [place] [address] PCP - General Physician Research Assistant Member 05/03/25 documented as of this encounter Additional Source Comments The information contained in this document represents components of the legal health record. It is not the complete legal health record.[facility]
--- OUTSIDE RECORDS SUMMARY | 2025-08-03 06:30 | XMS_ITS | Encounter Summary ---
Author Organization [facility] Address [address] [facility] [address] [place] [address] Phone Care Team Providers Care Chicken Vaccinator Name Role Phone Helen Delilah Primary Care Provider [phone] Kirstin Reyes Primary Care Provide r Encounter Details Date Type Department Care Team (Latest Contact Info) Description 08/06/2024 Transcribe Orders Virtual Department 30 [place] [address] Gilda Carranza PA-C [address] [place] [address] [email or web address] Lesion of ovary (Primary Dx) Social History [...] documented as of this encounter Care Teams Chicken Vaccinator Relationship Specialty Start Date End Date Delilah Cervantes DO [address] [place] [address] [place] [address] PCP - General Family Medicine 05/19/24 05/02/25 Kirstin Reyes PA [address] [place] [address] [place] [address] PCP - General Physician Broomcorn Grader 05/03/25 documented as of this encounter Additional Source Comments The information contained in this document represents components of the legal health record. It is not the complete legal health record.[facility]
--- OUTSIDE RECORDS SUMMARY | 2025-08-03 06:30 | XMS_ITS | Encounter Summary ---
Author Organization [facility] Address [address] [facility] [address] [place] [address] Phone Care Team Providers Care Landscape Architecture Professor Name Role Phone Pardeep Du MD Primary Care Provider [phone] Pardeep Du MD Unavailable [phone] Jessie Smith RN Unavailable [phone] Delilah Cervantes DO Primary Care Provider Kirstin Reyes Primary Care Provide r Encounter Details Date Type Department Care Team (Late st Contact Info) Description 06/02/2019 Procedure Pass [facility], [address] [place] [address] Social History Tobacco Use Types Packs/Day Years [...] documented as of this encounter Care Teams Landscape Architecture Professor Relationship Specialty Start Date End Date Pardeep Du MD [address] [place] [address], 2nd [place] [address] francisco [email or web address] PCP - General Internal Medicine 04/01/19 05/18/24 Delilah Cervantes DO [address] [place] [address] PCP - General Family Medicine 05/19/24 05/02/25 Kirstin Reyes PA [address] [place] [address] [place] [address] PCP - General Physician Coach Mechanic 05/03/25 Pardeep Du MD [address] [place] [address], 2nd [place] [address] francisco [email or web address] Insurance Assigned Provider 08/08/19 07/06/23 Jessie Smith, RN [address] [place] [phone] [email or web address] iCMP Aircraft Layout Worker 12/12/22 01/24/23 documented as of this encounter Additional Source Comments The information contained in this document represents components of the legal health record. It is not the complete legal health record.[facility]
--- OUTSIDE RECORDS SUMMARY | 2025-08-03 06:30 | XMS_ITS | Encounter Summary ---
Author Organization [facility] Address [address] [facility] [address] [place] [address] Phone Care Team Providers Care Specimen Preparation Assistant Name Role Phone Pardeep Du MD Primary Care Provider Pardeep Du MD Unavailable [phone] Jessie Smith RN Unavailable [phone] Delilah Cervantes DO Primary Care Provider Kirstin Reyes Primary Care Provide r Encounter Details Date Type Department Care Team (Late st Contact Info) Description 12/09/2022 Procedure Pass [facility] [address] [place] [address] Social History Tobacco Use Types Packs/Day Years [...] documented as of this encounter Care Teams Specimen Preparation Assistant Relationship Specialty Start Date End Date Pardeep Du MD [address] [place] [address], 2nd [place] [address] francisco PCP - General Internal Medicine 04/01/19 05/18/24 Delilah Cervantes DO [address] [place] [address] PCP - General Family Medicine 05/19/24 05/02/25 Kirstin Reyes PA [address] [place] [address] [place] [address] PCP - General Physician Fruit Shipper 05/03/25 Pardeep Du MD [address] [place] [address], 2nd [place] [address] francisco [email or web address] Insurance Assigned Provider 08/08/19 07/06/23 Jessie Smith, RN [address] [place] [address] [email or web address] iCMP Jersey Knitter 12/12/22 01/24/23 documented as of this encounter Additional Source Comments The information contained in this document represents components of the legal health record. It is not the complete legal health record.[facility]
--- OUTSIDE RECORDS SUMMARY | 2025-08-03 06:30 | XMS_ITS | Encounter Summary ---
Author Organization [facility] Address [address] [facility] [address] [place] [address] Phone Care Team Providers Care Faucets Assembler Name Role Phone Pardeep Du MD Primary Care Provider Pardeep Du MD Unavailable [phone] Jessie Smith RN Unavailable [phone] Delilah Cervantes DO Primary Care Provider Kirstin Reyes Primary Care Provide r Encounter Details Date Type Department Care Team (Late st Contact Info) Description 06/20/2022 Procedure Pass [facility] Admitting Dept - Virtual Department 30 [place] [address] Social History Tobacco Use Types Packs/Day Years [...] documented as of this encounter Care Teams Faucets Assembler Relationship Specialty Start Date End Date Pardeep Du MD [address] [place] [address], 2nd [place] [address] francisco PCP - General Internal Medicine 04/01/19 05/18/24 Delilah Cervantes DO [address] [place] [address] PCP - General Family Medicine 05/19/24 05/02/25 Kirstin Reyes PA [address] [place] [address] [place] [address] PCP - General Physician Machine Clerical Verifier 05/03/25 Pardeep Du MD [address] [place] [address], 2nd [place] [address] francisco [email or web address] Insurance Assigned Provider 08/08/19 07/06/23 Jessie Smith, RN [address] [place] [address] [email or web address] iCMP Debit Agent 12/12/22 01/24/23 documented as of this encounter Additional Source Comments The information contained in this document represents components of the legal health record. It is not the complete legal health record.[facility]
--- OUTSIDE RECORDS SUMMARY | 2025-08-03 06:30 | XMS_ITS | Encounter Summary ---
Author Organization [facility] Address [address] [facility] [address] [place] [address] Phone Care Team Providers Care Car Inspector Name Role Phone Pardeep Du MD Primary Care Provider Pardeep Du MD Unavailable [phone] Jessie Smith RN Unavailable [phone] Delilah Cervantes DO Primary Care Provider Kirstin Reyes Primary Care Provide r Encounter Details Date Type Department Care Team (Late st Contact Info) Description 08/07/2021 Procedure Pass [facility], Ct Scan - [address] [address] Social History Tobacco Use Types Packs/Day Years [...] education for yourself related to: Learning the Slovenian language? Completing high school, earning a high [...] 7:48 PM EDT Aniyah Price RN * [place] Suicide Severity Rating Scale (Screener/Recent Self-Report) Question [...] documented as of this encounter Care Teams Car Inspector Relationship Specialty Start Date End Date Pardeep Du MD [address] [place] [address] [email or web address] PCP - General Internal Medicine 04/01/19 05/18/24 Delilah Cervantes DO [address] [place] [address] PCP - General Family Medicine 05/19/24 05/02/25 Kisrtin Reyes PA [address] [place] [address] PCP - General Physician Bridge Worker 05/03/25 Pardeep Du MD [address] [place] [address] francisco Insurance Assigned Provider 08/08/19 07/06/23 Jessie Smith, RN [address] [place] [address] [email or web address] iCMP Day Spa Manager 12/12/22 01/24/23 documented as of this encounter Additional Source Comments The information contained in this document represents components of the legal health record. It is not the complete legal health record.[facility]
--- OUTSIDE RECORDS SUMMARY | 2025-08-03 06:30 | XMS_ITS | Encounter Summary ---
Author Organization [facility] Address [address] [facility] [address] [place] [address] Phone Care Team Providers Care Eeg Tech Name Role Phone Pardeep Du MD Primary Care Provider Pardeep Du MD Unavailable Delilah Cervantes DO Primary Care Provider Kirstin Reyes Primary Care Provide r Encounter Details Date Type Department Care Team (Late st Contact Info) Description 05/06/2023 Ancillary Orders [facility] [address] [place] [address] [place] [address] Pardeep Du MD [address] [facility], 2nd [place] [address] francisco [email or web address] Abnormal finding on mammography Social History Tobacco [...] documented as of this encounter Care Teams Eeg Tech Relationship Specialty Start Date End Date Pardeep Du MD [address] [place] [address], 2nd [place] [address] francisco PCP - General Internal Medicine 04/01/19 05/18/24 Delilah Cervantes DO [address] [place] [address] PCP - General Family Medicine 05/19/24 05/02/25 Kirstin Reyes PA [address] [place] [address] [place] [address] PCP - General Physician Social Sciences Department Chair 05/03/25 Pardeep Du MD [address] [place] [address], 2nd [place] [address] francisco [email or web address] Insurance Assigned Provider 08/08/19 07/06/23 documented as of this encounter Additional Source Comments The information contained in this document represents components of the legal health record. It is not the complete legal health record.[facility]
--- OUTSIDE RECORDS SUMMARY | 2025-08-03 06:30 | XMS_ITS | Encounter Summary ---
Author Organization [facility] Address [address] [facility] [address] [place] [address] Phone Care Team Providers Care Geriatric Social Work Professor Name Role Phone Pardeep Du MD Primary Care Provider Pardeep Du MD Unavailable Jessie Smith RN Unavailable [phone] Delilah Cervantes DO Primary Care Provider Kirstin Reyes Primary Care Provide r Encounter Details Date Type Department Care Team (Late st Contact Info) Description 07/23/2019 Ancillary Orders Non-Invasive Cardiology 30 [place] [address] Pardeep Du MD [address] [facility], 2nd [place] [address] francisco [email or web address] Chest pain, unspecified type Social History Tobacco [...] AM EDT) Max BP Systolic 130 mmHg [facility] Max BP Diastolic 70 mmHg [facility] Max HR 88 BPM [facility] Resting HR 57 BPM [facility] Resting BP Systolic 126 mmHg [facility] Resting BP Diastolic 78 mmHg [facility] Peak METS 1.0 METS [facility] Peak HR 87 BPM [facility] Anatomical Region Laterality Modality Heart Other [...] injection of the Tc99m Sestamibi by the certified nuclear medicine technologist. Patient tolerated infusion without [...] documented as of this encounter Care Teams Geriatric Social Work Professor Relationship Specialty Start Date End Date Pardeep Du MD [address] [place] [address], 2nd [place] [address] francisco PCP - General Internal Medicine 04/01/19 05/18/24 Delilah Cervantes DO [address] [place] [address] PCP - General Family Medicine 05/19/24 05/02/25 Kirstin Reyes PA [address] [place] [address] PCP - General Physician Icer Machine 05/03/25 Pardeep Du MD [address] [place] [address], 2nd [place] [address] francisco Insurance Assigned Provider 08/08/19 07/06/23 Jessie Smith, RN [address] [place] [address] [email or web address] iCMP Attic Blower 12/12/22 01/24/23 documented as of this encounter Additional Source Comments The information contained in this document represents components of the legal health record. It is not the complete legal health record.[facility]
--- OUTSIDE RECORDS SUMMARY | 2025-08-03 06:30 | XMS_ITS | Encounter Summary ---
Author Organization [facility] Address [address] [facility] [address] [place] [address] Phone Care Team Providers Care Chiller Operator Name Role Phone Pardeep Du MD Primary Care Provider Pardeep Du MD Unavailable [phone] Jessie Smith RN Unavailable [phone] Delilah Cervantes DO Primary Care Provider [phone] Kirstin Reyes Primary Care Provide r Encounter Details Date Type Department Care Team (Late st Contact Info) Description 03/23/2021 Procedure Pass [facility], [address] [place] [address] Social History Tobacco Use Types Packs/Day Years [...] education for yourself related to: Learning the Guyanese language? Completing high school, earning a high [...] documented as of this encounter Care Teams Chiller Operator Relationship Specialty Start Date End Date Pardeep Du MD [address] [place] [address], 2nd [place] [address] francisco PCP - General Internal Medicine 04/01/19 05/18/24 Delilah Cervantes DO [address] [place] [address] PCP - General Family Medicine 05/19/24 05/02/25 Kirstin Reyes PA [address] [place] [address] [place] [address] PCP - General Physician Terrazzo Worker Apprentice 05/03/25 Pardeep Du MD [address] [place] [address], 2nd [place] [address] francisco [email or web address] Insurance Assigned Provider 08/08/19 07/06/23 Jessie Smith, RN [address] [place] [address] [email or web address] iCMP Eight Arm Operator 12/12/22 01/24/23 documented as of this encounter Additional Source Comments The information contained in this document represents components of the legal health record. It is not the complete legal health record.[facility]
--- OUTSIDE RECORDS SUMMARY | 2025-08-03 06:30 | XMS_ITS | Clinical Summary ---
Author Organization [facility] Address [address] [facility] [address] [place] [address] Phone Care Team Providers Care Manager Interventional Name Role Phone Kirstin Reyes Primary Care [...] would like to switch her doctors to [facility]. Referral placed. Assessment & Plan (12/30/2023 [...] 4:55 PM EST): This is a 52-year-old Yemeni-speaking woman who I saw using a beach expert today who has lost about 7 and [...] 12:16 PM EST): This is a 52-year-old Yemeni-speaking woman who started the program at [facility] and did not lose very much weight on the program. The patient is now restarting the program at [facility] in an effort to undergo laparoscopic sleeve [...] protein shake or a protein bar or Kuwaiti yogurt or cottage cheese to be consumed [...] weight loss with the bariatric surgeons at [facility]. She is preparing for surgery. No [...] Department Care Team Description 05/24/2025 Refill Jennifer [employer] [facility] [place] [address] [place] [address] Pardeep Du MD Medication Refill 05/03/2025 10:33 AM EDT Anesthesia Event [facility] Endoscopy Admitting Dept Virtual Department [address] [place] [address] Drake Mcgovern MD 05/03/2025 10:30 AM EDT - 05/03/2025 11:00 AM EDT Surgery [facility] Endoscopy Admitting Dept Virtual Department [address] [place] [address] Lani Marion MD COLONOSCOPY 05/03/2025 9:27 AM EDT - 05/03/2025 12:00 PM EDT Hospital Encounter [facility]oscopy Admitting Dept Virtual Department [address] [place] [address] Lani Marion MD Discharge Disposition: Home or Self Care 05/03/2025 Procedure Pass [facility] Endoscopy Admitting Dept Virtual Department [address] [place] [address] from Last 3 Months Immunizations Immunization Administration [...] this topic Medical Devices Implanted Type Area Paper Reel Operator Device Identifier Shelf Expiration Date Model / Serial / Lot System Implant Achilles Speedbridge Biocomposite - [id number] Implanted:Qty: 1 on 06/20/2022 by Drake Canales MD at [facility] Left: Ankle ARTHREX 03/27/2025 [id number] / / [id number] Procedures Procedure Name Priority Date/Time Associated Diagnosis Comments AR COLSC FLX W/RMVL OF TUMOR POLYP LESION SNARE TQ 05/03/2025 10:29 AM EDT Gastroesophageal reflux disease without esophagitis Slow transit constipation Hx of colonic polyps Special Needs Hx CHF - cardiac workup done - see notes AR COLONOSCOPY W/BIOPSY SINGLE/MULTIPLE 05/03/2025 10:29 AM EDT Gastroesophageal reflux disease without esophagitis Slow transit constipation Hx of colonic polyps Special Needs Hx CHF -2022 - cardiac workup done - see notes AR COLONOSCOPY FLX DX W/COLLJ SPEC WHEN PFRMD [...] Marion MD - 05/03/2025 10:24 AM EDT [facility] Patient Name: Heidi Erickson Jass Attending MD:: LANI MARION MD, Procedure Date: 05/03/2025 10:24 AM Date of : 1970 Age: 54 Admit Type: Outpatient Gender: Female Room: [place] [address] Referring MD: Kirstin Reyes Exam Type: Colonoscopy [...] monitored continuously. The Olympus adult variable colonoscope [id number] #[id number] was introduced through the anus and [...] 10:24 AM Procedure Code(s): --- Professional --- 06446, Colonoscopy, flexible; with removal of tumor(s), polyp(s), or other lesion(s) by snare technique --- Technical --- 41365, Colonoscopy, flexible; with removal of tumor(s), polyp(s), or other lesion(s) by snare technique CPT copyright 2021 [employer]. All rights reserved. The codes documented in this report are preliminary and upon chief knowledge officer reviewmay be revised to meet current compliance requirements. Procedure Date: 05/03/2025 10:24:[address] [place] [address] Kirstin GRAJEDA GI PROCEDURE ORDERABL ES Final Result * Anatomic Pathology (05/03/2025 12:00 AM EDT) 05/03/2025 05/03/2025 1:3 4 PM EDT Narrative SEE NARRATIVE - 05/04/2025 4:43 PM EDT [address] [address] General Doc: Jonatan Wilks MD Surgical Pathology Report FINAL [...] : 1970 (Age: 54) Sex: F Institution: [facility] Date of Operation: 05/03/2025 Date of Reported: [...] (12/09/2022 4:15 AM EST) HDL 66 mg/dL [facility] Comment: Interpretation <40 mg/dL: Low HDL cholesterol (major risk factor for CHD) Greater than or equal to 60 mg/dL: High HDL cholesterol ( negative risk factor for CHD) HDL - cholesterol is affected by a number of factors, e.g. smoking, excerise, hormones, sex and age. CHOLESTEROL 163 0 - 240 mg/dL [facility] TRIGLYCERIDES 73 30 - 160 mg/dL [facility] LDL 82 50 - 129 mg/dL [facility] Comment: LDL levels in terms of risk for coronary heart disease: <100 mg/dL: Optimal 100-129 mg/dL: Near or above optimal 130-159 mg/dL: Borderline high 160-189 mg/dL: High >190 mg/dL: Very High CARDIAC RISK RATIO 2.5(L) 3.3 - 4.4 [facility] Blood 12/09/2022 4:15 AM EST 12/09/2022 4:23 AM EST us Olinda Higgins MD LAB BLOOD ORDERABLES Final Result [facility] [address] [place] [address] * Pap Smear (03/20/2022 12:00 AM EDT) 03/20/2022 03/21/2022 8:4 4 AM EDT Narrative SEE NARRATIVE - 03/27/2022 11:19 AM EDT [address] [address] General Doc: Emily Estevez MD [facility] Cytology Report FINAL DIAGNOSIS A. PAP SMEAR [...] 52, 56, 58, 59, 66, 68) by [employer]ervault Onclarity HR-HPV analysis. Clinical correlation is advised. This HPV test was performed at [facility], [address] [place] [address]. This test has been FDA approved for SurePath cervical cytology specimens. The accuracy and precision of this test for all other specimen sources has been verified in the Cytopathology Laboratory of the [facility] and has not been cleared or approved by the U.S. Food and Drug Administration. Clinical correlation is advised. CLINICAL HISTORY Date of Last Menstrual Period: 03-20-2022 Menstrual History: Bleeding, Abnormal Other Clinical Conditions: Screening Pap SPECIMEN SOURCE A: PAP SMEAR (SUREPATH) CE Patient Name: HEIDI GUPTA : 1970 (Age: 51) Sex: F Institution: [facility] Location: [facility] Date of Collection: 03/20/2022 Date of Reported: 03/27/2022 11:19 Results to: Ted Bello MD us Ted Bello MD CYTOLOGY ORDERABLES Final Result SEE NARRATIVE * Hepatitis C antibody, qualitative (01/25/2022 8:02 AM EDT) HCV NON-REACTIV E NON-REACTI VE [facility] Blood 01/25/2022 8:02 AM EDT 01/25/2022 8:06 AM EDT us Pardeep Du MD LAB BLOOD ORDERABLES Final Result Performing Organization Address City/[facility] Co de Phone Number [facility] [address] [place] [address] * CT CHEST PULMONARY ANGIOGRAM (ACUTE) (09/26/2019 1:20 AM EST) Anatomical Region Laterality Modality Chest, Thoracic Vasculature Comp uted Tomography 09/26/2019 8:24 AM EST Impressions 09/26/2019 8:29 AM EST No pulmonary embolism demonstrated. Peripheral subsegmental emboli could be occult on this examination. No focal airspace infiltrate or pleural effusion. These findings were relayed to the Emergency Department by the [facility] [email or web address]] on 09/26/2019. Incidental non-obstructive left nephrolithiasis. TOTAL CTDIvol: 113.60 mGy POS - [id number] Narrative 09/26/2019 8:29 AM EST COMPARISON: 09/25/2019 [...] were relayed to the Emergency Department by [facility] on 09/26/2019. Incidental non-obstructive left nephrolithiasis. TOTAL CTDIvol: 113.60 mGy POS - [id number] us Dilshad Duncan DO IMG CT CHEST Final Result from Last 3 Months or Most Recently Relevant to Health Maintenance Insurance [facility] ACO [facility] ACO [facility] ACO [facility] ACO [facility] ACO PROGRESSIVE INSURANCE Advance Directives For more information, please contact: [phone] (9AM - 5PM [facility], Saturday-Saturday) * Full Code (Latest Code Status on File) Date Activated Date Inactivated Comments 12/09/2022 3:44 AM Question Answer Comments Code Status Confirmed With: PatientFamily Care Teams Manager Interventional Relationship Specialty Start Date End Date Kirstin Reyes PA [address] [place] [address] [place] [address] PCP - General Physician Tangled Yarn Worker 05/03/25 Additional Source Comments The information contained in this document represents components of the legal health record. It is not the complete legal health record.[facility]
--- OUTSIDE RECORDS SUMMARY | 2025-08-03 06:30 | XMS_ITS | Encounter Summary ---
Author Organization [facility] Address [address] [facility] [address] [place] [address] Phone Care Team Providers Care Collar Tailor Name Role Phone Pardeep Du MD Primary Care Provider Pardeep Du MD Unavailable [phone] Delilah Cervantes DO Primary Care Provider Kirstin Reyes Primary Care Provide r Encounter Details Date Type Department Care Team (Late st Contact Info) Description 04/05/2023 Procedure Pass [facility], [address] [address] Social History Tobacco Use Types Packs/Day Years [...] documented as of this encounter Care Teams Collar Tailor Relationship Specialty Start Date End Date Pardeep Du MD [address] [place] [address], [address] [place] [address] francisco PCP - General Internal Medicine 04/01/19 05/18/24 Delilah Cervantes DO [address] [place] [address] PCP - General Family Medicine 05/19/24 05/02/25 Kirstin Reyes PA [address] [place] [address] PCP - General Physician Search Engine Optimization Consultant 05/03/25 Pardeep Du MD [address] [place] [address], [address] [place] [address] francisco [email or web address] Insurance Assigned Provider 08/08/19 07/06/23 documented as of this encounter Additional Source Comments The information contained in this document represents components of the legal health record. It is not the complete legal health record.[facility]
--- OUTSIDE RECORDS SUMMARY | 2025-08-03 06:30 | XMS_ITS | Encounter Summary ---
Author Organization [facility] Address [address] [facility] [address] [place] [address] Phone Care Team Providers Care Patient Admitting Representative Name Role Phone Pardeep Du MD Primary Care Provider [phone] Pardeep Du MD Unavailable Jessie Smith RN Unavailable [phone] Delilah Cervantes DO Primary Care Provider Kirstin Reyes Primary Care Provide r Encounter Details Date Type Department Care Team (Late st Contact Info) Description 09/13/2021 Transcribe Orders Virtual Department [address] [place] [address] Pardeep Du MD [address] [facility], 2nd [place] [address] francisco Social History Tobacco Use Types Packs/Day [...] documented as of this encounter Care Teams Patient Admitting Representative Relationship Specialty Start Date End Date Pardeep Du MD [address] [place] [address], [address] [place] [address] francisco PCP - General Internal Medicine 04/01/19 05/18/24 Delilah Cervantes DO [address] [place] [address] PCP - General Family Medicine 05/19/24 05/02/25 Kirstin Reyes PA [address] [place] [address] PCP - General Physician Welfare Visitor 05/03/25 Pardeep Du MD [address] [place] [address], 2[address] [place] [address] francisco Insurance Assigned Provider 08/08/19 07/06/23 Jessie Smith, RN [address] [place] [address] [email or web address] iCMP Doper 12/12/22 01/24/23 documented as of this encounter Additional Source Comments The information contained in this document represents components of the legal health record. It is not the complete legal health record.[facility]
--- OUTSIDE RECORDS SUMMARY | 2025-08-03 06:30 | XMS_ITS | Encounter Summary ---
Author Organization [facility] Address [address] [facility] [address] [place] [address] Phone Care Team Providers Care Summer Counselor Name Role Phone Pardeep Du MD Primary Care Provider Pardeep Du MD Unavailable [phone] Jessie Smith RN Unavailable [phone] Delilah Cervantes DO Primary Care Provider Kirstin Reyes Primary Care Provide r Encounter Details Date Type Department Care Team (Late st Contact Info) Description 10/04/2021 Procedure Pass [facility], [facility] [address] [place] [address] Social History Tobacco Use Types Packs/Day Years [...] documented as of this encounter Care Teams Summer Counselor Relationship Specialty Start Date End Date Pardeep Du MD [address] [place] [address], 2[address] [place] [address] francisco PCP - General Internal Medicine 04/01/19 05/18/24 Delilah Cervantes DO [address] [place] [address] PCP - General Family Medicine 05/19/24 05/02/25 Kirstin Reyes PA [address] [place] [address] [place] [address] PCP - General Physician Junior Java Developer 05/03/25 Pardeep Du MD [address] [place] [address], 2[address] [place] [address] francisco [email or web address] Insurance Assigned Provider 08/08/19 07/06/23 Jessie Smith, RN [address] [place] [address] [email or web address] iCMP Merchandising Representative 12/12/22 01/24/23 documented as of this encounter Additional Source Comments The information contained in this document represents components of the legal health record. It is not the complete legal health record.[facility]
== END 2025-08-03 06:28 | disposition home or self-care (01) ==
LOC: CF 06:27
PROVIDERS: Visit Provider Anesthesiology
DX: M17.12 Unilateral primary osteoarthritis, left knee (principal)
CPT/HCPCS: 20610; J2003; J2795; J3301; Q9967

== ENCOUNTER 2025-08-03 11:39 | Outpatient (AMB) | payer OTHER, SELFPAY ==
--- NOTE | 2025-08-03 11:40 | MHC.OFFVIS ---
Vital Signs 08/03/25 11:44 08/03/25 12:12 Height 5 ft 9 in Weight 396 lb BMI 58.5 BP 171/75 H 176/83 H Blood Pressure Location Lt radial Lt radial Position Sitting Sitting Respiration 16 16 Pulse 65 76 Pulse Source Pulse Oximeter Pulse Oximeter Pulse Oximetry (%) 97 95 Oxygen Delivery Method Room Air Room Air Intake Visit Reasons: Left Knee Intra-Articular Injection Allergies morphine Allergy (Severe, Verified 07/02/25 11:12) Shortness of Breath Seasonal Allergies Allergy (Severe, Verified 07/02/25 11:12) Sneezing latex (Latex) Allergy (Intermediate, Verified 07/02/25 11:12) ITCHY, RASH , AND FUNGUS oxycodone Allergy (Intermediate, Verified 07/02/25 11:12) Rash opium (anthroposophic) Allergy (Unknown, Verified 07/02/25 11:12) Hives [facility] Medical History Peripheral edema Essential hypertension Subclinical hypothyroidism Thyromegaly Lipoma of chest wall Chronic diastolic (congestive) heart failure Anal fistula Sinus complaint Sterilization Kidney stone Acute appendicitis Vesicular dermatitis Enlarged lymph node Acute bacterial tonsillitis History of claustrophobia History of anxiety Hx of tendinitis Hx of bursitis History of knee problem Hx of chronic arthritis Family history of heart murmur History of asthma Surgical History History of hand surgery Hx of carpal tunnel repair H/O bilateral mastectomy History of kidney surgery Hx of tubal ligation Hx of tonsillectomy Hx of breast surgery Hx of appendectomy Hx of cholecystectomy Hx of knee surgery History of Achilles tendon repair Family History Mother Accelerated hypertension Arthritis Cancer of stomach Father Arthritis Sister No problems noted. Sister Arthritis Accelerated hypertension Sister No problems noted. Sister No problems noted. Brother Overdose Brother HIV disease Son Asthma Son No problems noted. Son No problems noted. Son No problems noted. Daughter No problems noted. Social History Housing: Apartment Alcohol intake: never Patient Tobacco Use Status: Former Tobacco user Tobacco use type: Cigarette Cigarettes Per Day: 1 Years Smoked: 30 e-Cigarette/Vaping Use: Never Used Second Hand Smoke Exposure: Yes service: No Current occupational status: unemployed Cognitive needs: Yes Hearing needs: No Vision needs: Yes Female Reproductive History Menstrual Age of Menarche: 14 Physical Exam Vital Signs: Last Vital Signs Pulse 76 08/03/25 12:12 Resp 16 08/03/25 12:12 BP 176/83 H 08/03/25 12:12 Pulse Ox 95 08/03/25 12:12 Oxygen Delivery Method Room Air 08/03/25 12:12 BMI result Body Mass Index 58.5 Assessment & Plan Assessment & Plan (1) Osteoarthritis of left knee: Code(s): M17.12 - Unilateral primary osteoarthritis, left knee Category: Medical (2) Left knee pain: Code(s): M25.562 - Pain in left knee Category: Medical Plan Left intra-articular knee steroid injection. Patient came today to the operating room to receive steroid injection into her knees. She was taken to the operating room where she was positioned supine on the operating table with the left knee flexed, the anterior surface anterior lateral and anterior medial surface of the left knee was prepped with ChloraPrep and draped with sterile self adhesive utility towels. After that C-arm was brought over the operating field and sq picture of the knee joint was demonstrated on the screen. From anterior lateral into the central medial direction 22 gauge 3-1/2 inch needle was inserted through the skin and advanced to were the silhouette of the joint in retropatellar fashion. When the tip of the needle entered the joint center injection of the contrast was performed delineating arthrogram. After that injection of the ropivacaine 0.5% mixed with Kenalog 40 mg was performed into the knee. Upon completion of the injection the needle was removed and Band-Aid was applied. Patient tolerated the procedure well. Coding Level of Care Code Procedure Only Diagnoses Osteoarthritis of left knee M17.12 Left knee pain M25.562
[2025-08-03 11:44] VITALS: BP 171/75; PULSE 65; RESP 16; O2SAT 97; BMI 58.5
[2025-08-03 12:12] VITALS: BP 176/83; PULSE 76; RESP 16; O2SAT 95
--- OUTSIDE RECORDS SUMMARY | 2025-08-03 14:44 | XMS_ITS | Encounter Summary ---
Author Organization [facility] Address [address] [facility] [address] [place] [address] Phone Care Team Providers Care Laboratory Machinist Name Role Phone Pardeep Du MD Primary Care Provider [phone] Pardeep Du MD Unavailable [phone] Jessie Smith RN Unavailable [phone] Delilah Cervantes DO Primary Care Provider Kirstin Reyes Primary Care Provide r Encounter Details Date Type Department Care Team (Late st Contact Info) Description 09/16/2019 Ancillary Orders [facility],Outside Imaging [address] [place], [place] [id number] System, Provider Not In, [facility] [address] [address] Social History Tobacco Use Types Packs/Day Years [...] documented as of this encounter Care Teams Laboratory Machinist Relationship Specialty Start Date End Date Pardeep Du MD [address] [place] [address], [address] [place] [address] francisco PCP - General Internal Medicine 04/01/19 05/18/24 Delilah Cervantes DO [address] [place] [address] PCP - General Family Medicine 05/19/24 05/02/25 Kirstin Reyes PA [address] [place] [address] [place] [address] PCP - General Physician Control Clerk Auditing 05/03/25 Pardeep Du MD [address] [place] [address] francisco Insurance Assigned Provider 08/08/19 07/06/23 Jessie Smith, RN [address] [place] [id number] iCMP Exhauster Engineer 12/12/22 01/24/23 documented as of this encounter Additional Source Comments The information contained in this document represents components of the legal health record. It is not the complete legal health record.[facility]
--- OUTSIDE RECORDS SUMMARY | 2025-08-03 14:44 | XMS_ITS | Encounter Summary ---
Author Organization [facility] Address [address] [facility] [address] [place] [address] Phone Care Team Providers Care Wood Carving Machine Operator Name Role Phone Pardeep Du MD Primary Care Provider [phone] Pardeep Du MD Unavailable [phone] Jessie Smith RN Unavailable [phone] Delilah Cervantes DO Primary Care Provider Kirstin Reyes Primary Care Provide r Encounter Details Date Type Department Care Team (Late st Contact Info) Description 12/17/2022 Procedure Pass [facility], [address] [place] [address] Social History Tobacco Use Types Packs/Day Years [...] documented as of this encounter Care Teams Wood Carving Machine Operator Relationship Specialty Start Date End Date Pardeep Du MD [address] [place] [address], [address] [place] [address] francisco PCP - General Internal Medicine 04/01/19 05/18/24 Delilah Cervantes DO [address] [place] [address] PCP - General Family Medicine 05/19/24 05/02/25 Kirstin Reyes PA [address] [place] [address] [place] [address] PCP - General Physician Medical Legal Investigator 05/03/25 Pardeep Du MD [address] [place] [address], [address] [place] [address] francisco [email or web address] Insurance Assigned Provider 08/08/19 07/06/23 Jessie Smith, RN [address] [place] [address] [email or web address] iCMP Stereotype Caster 12/12/22 01/24/23 documented as of this encounter Additional Source Comments The information contained in this document represents components of the legal health record. It is not the complete legal health record.[facility]
--- OUTSIDE RECORDS SUMMARY | 2025-08-03 14:44 | XMS_ITS | Encounter Summary ---
Author Organization [facility] Address [address] [facility] [address] [place] [address] Phone Care Team Providers Care Photogeologist Name Role Phone Pardeep Du MD Primary Care Provider [phone] Pardeep Du MD Unavailable [phone] Jessie Smith RN Unavailable [phone] Delilah Cervantes DO Primary Care Provider Kirstin Reyes Primary Care Provide r Encounter Details Date Type Department Care Team (Late st Contact Info) Description 09/16/2019 Ancillary Orders [facility],Outside Imaging [address] [place], [place] [phone] System, Provider Not In, [facility] [address] [address] Social History Tobacco Use Types Packs/Day Years [...] documented as of this encounter Care Teams Photogeologist Relationship Specialty Start Date End Date Pardeep Du MD [address] [place] [address], [address] [place] [address] francisco PCP - General Internal Medicine 04/01/19 05/18/24 Delilah Cervantes DO [address] [place] [address] PCP - General Family Medicine 05/19/24 05/02/25 Kirstin Reyes PA [address] [place] [address] [place] [address] PCP - General Physician Director Operating 05/03/25 Pardeep Du MD [address] [place] [address] francisco Insurance Assigned Provider 08/08/19 07/06/23 Jessie Smith, RN [address] [place] [address] iCMP Financial Professional 12/12/22 01/24/23 documented as of this encounter Additional Source Comments The information contained in this document represents components of the legal health record. It is not the complete legal health record.[facility]
--- OUTSIDE RECORDS SUMMARY | 2025-08-03 14:44 | XMS_ITS | Encounter Summary ---
Author Organization [facility] Address [address] [place] [address] Phone Care Team Providers Care Chemistry Lecturer Name Role Phone Pardeep Du MD Primary Care Provider Pardeep Du MD Unavailable [phone] Jessie Smith RN Unavailable [phone] Delilah Cervantes DO Primary Care Provider Kirstin Reyes Primary Care Provide r Encounter Details Date Type Department Care Team (Late st Contact Info) Description 05/04/2019 Ancillary Orders [facility] [address] [place] [address] [place] [address] Andrew Alberto MD [address] [place] [address] [facility] [place]IL[place] SPANN [address] [email or web address] Pain in both knees, unspecified [...] for yourself related to: Learning the [place] language? Completing high school, earning a [...] to medium sized joint effusion. POS - [id number] Narrative 05/04/2019 1:28 PM EDT Left knee [...] to medium sized joint effusion. POS - [id number] Andrew Alberto MD IMG XR LOWER EXTREMITY F inal Result * XR KNEE 4 OR MORE VIEWS (RIGHT) (05/04/2019 1:07 PM EDT) Anatomical Region Laterality Modality Knee Right Radiographic Jseika ging 05/04/2019 1:27 PM EDT Impressions 05/04/2019 1:28 PM EDT Moderate medial compartment osteoarthritis. No erosive changes or bony lesion seen. Prominent joint effusion. POS - [id number] Narrative 05/04/2019 1:28 PM EDT Right knee [...] bonylesion seen. Prominent joint effusion. POS - [id number] Andrew Alberto MD IMG XR LOWER EXTREMITY [...] documented as of this encounter Care Teams Chemistry Lecturer Relationship Specialty Start Date End Date Pardeep Du MD [address] [place] [address], [address] [place] [address] francisco PCP - General Internal Medicine 04/01/19 05/18/24 Delilah Cervantes DO [address] [place] [address] PCP - General Family Medicine 05/19/24 05/02/25 Kirstin Reyes PA [address] [place] [address] PCP - General Physician Patient Resource Specialist 05/03/25 Pardeep Du MD [address] [place] [address] francisco Insurance Assigned Provider 08/08/19 07/06/23 Jessie Smith, RN [address] [place] [address] iCMP Tag Meter Operator 12/12/22 01/24/23 documented as of this encounter Additional Source Comments The information contained in this document represents components of the legal health record. It is not the complete legal health record.[facility]
--- OUTSIDE RECORDS SUMMARY | 2025-08-03 14:44 | XMS_ITS | Encounter Summary ---
Author Organization [facility] Address [address] [place] [address] Phone Care Team Providers Care Feed Mill Manager Name Role Phone Pardeep Du MD Primary Care Provider [phone] Pardeep Du MD Unavailable [phone] Jessie Smith RN Unavailable [phone] Delilah Cervantes DO Primary Care Provider Kirstin Reyes Primary Care Provide r Encounter Details Date Type Department Care Team (Late st Contact Info) Description 09/16/2019 Ancillary Orders [facility],Outside Imaging [address] [place], [place] [id number] System, Provider Not In, [facility] [address] [address] Social History Tobacco Use Types Packs/Day Years [...] documented as of this encounter Care Teams Feed Mill Manager Relationship Specialty Start Date End Date Pardeep Du MD [address] [place] [address], [address] [place] [address] francisco PCP - General Internal Medicine 04/01/19 05/18/24 Delilah Cervantes DO [address] [place] [address] PCP - General Family Medicine 05/19/24 05/02/25 Kirstin Reyes PA [address] [place] [address] [place] [address] PCP - General Physician Business Control Specialist 05/03/25 Pardeep Du MD [address] [place] [address] francisco Insurance Assigned Provider 08/08/19 07/06/23 Jessie Smith, RN [address] [place] [address] iCMP Yard Warehouse Worker 12/12/22 01/24/23 documented as of this encounter Additional Source Comments The information contained in this document represents components of the legal health record. It is not the complete legal health record.[facility]
--- OUTSIDE RECORDS SUMMARY | 2025-08-03 14:44 | XMS_ITS | Encounter Summary ---
Author Organization [facility] Address [address] [facility] [address] [place] [address] Phone Care Team Providers Care Audio Visual Manager Name Role Phone Pardeep Du MD Primary Care Provider [phone] Pardeep Du MD Unavailable [phone] Jessie Smith RN Unavailable [phone] Delilah Cervantes DO Primary Care Provider [phone] Kirstin Reyes Primary Care Provide r Encounter Details Date Type Department Care Team (Late st Contact Info) Description 10/18/2020 Procedure Pass [facility] - [address] [place] [address] Social History Tobacco Use Types Packs/Day Years [...] documented as of this encounter Care Teams Audio Visual Manager Relationship Specialty Start Date End Date Pardeep Du MD [address] [place] [address], 2nd [place] [address] francisco PCP - General Internal Medicine 04/01/19 05/18/24 Delilah Cervantes DO [address] [place] [address] PCP - General Family Medicine 05/19/24 05/02/25 Kirstin Reyes PA [address] [place] [address] [place] [address] PCP - General Physician Energy Director 05/03/25 Pardeep Du MD [address] [place] [address], 2nd [place] [address] francisco [email or web address] Insurance Assigned Provider 08/08/19 07/06/23 Jessie Smith, RN [address] [place] [address] [email or web address] iCMP Senior Benefits Manager 12/12/22 01/24/23 documented as of this encounter Additional Source Comments The information contained in this document represents components of the legal health record. It is not the complete legal health record.[facility]
--- OUTSIDE RECORDS SUMMARY | 2025-08-03 14:44 | XMS_ITS | Encounter Summary ---
Author Organization [facility] Address [address] [facility] [address] [place] [address] Phone Care Team Providers Care Rn Lvn Name Role Phone Kirstin Reyes Primary Care Provide r Encounter Details Date Type Department Care Team (Late st Contact Info) Description 05/03/2025 Procedure Pass [facility] Admitting Dept Virtual Department 30 [place] [address] Social History Tobacco Use Types Packs/Day Years [...] as of this encounter Care Teams Rn Lvn Relationship Specialty Start Date End Date Kirstin Reyes PA [address] [place] [address] [place] [address] PCP - General Physician Toy Parts Former Supervisor 05/03/25 documented as of this encounter Additional Source Comments The information contained in this document represents components of the legal health record. It is not the complete legal health record.[facility]
--- OUTSIDE RECORDS SUMMARY | 2025-08-03 14:44 | XMS_ITS | Encounter Summary ---
Author Organization [facility] Address [address] [facility] [address] [place] [address] Phone Care Team Providers Care Chief Ii Dispatcher Name Role Phone Pardeep Du MD Primary Care Provider Pardeep Du MD Unavailable [phone] Jesise Smith RN Unavailable [phone] Delilah Cervantes DO Primary Care Provider Kirstin Reyes Primary Care Provide r Encounter Details Date Type Department Care Team (Late st Contact Info) Description 10/18/2020 Procedure Pass [facility] - [address] [place] [address] Social History Tobacco Use Types Packs/Day Years [...] documented as of this encounter Care Teams Chief Ii Dispatcher Relationship Specialty Start Date End Date Pardeep Du MD [address] [place] [address], 2nd [place] [address] francisco PCP - General Internal Medicine 04/01/19 05/18/24 Delilah Cervantes DO [address] [place] [address] PCP - General Family Medicine 05/19/24 05/02/25 Kirstin Reyes PA [address] [place] [address] [place] [address] PCP - General Physician Tax Expert 05/03/25 Pardeep Du MD [address] [place] [address], 2nd [place] [address] francisco [email or web address] Insurance Assigned Provider 08/08/19 07/06/23 Jessie Smith, RN [address] [place] [address] [email or web address] iCMP Boilermaker Apprentice 12/12/22 01/24/23 documented as of this encounter Additional Source Comments The information contained in this document represents components of the legal health record. It is not the complete legal health record.[facility]
--- OUTSIDE RECORDS SUMMARY | 2025-08-03 14:45 | XMS_ITS | Encounter Summary ---
Author Organization [facility] Address [address] [place] [address] Phone Care Team Providers Care Guest Room Attendant Name Role Phone Pardeep Du MD Primary Care Provider Pardeep Du MD Unavailable [phone] Jessie Smith RN Unavailable [phone] Delilah Cervantes DO Primary Care Provider [phone] Kirstin Reyes Primary Care Provide r Encounter Details Date Type Department Care Team (Late st Contact Info) Description 06/20/2022 Procedure Pass [facility] Admitting Dept - Virtual Department 30 [place] [address] Social History Tobacco Use Types Packs/Day Years [...] documented as of this encounter Care Teams Guest Room Attendant Relationship Specialty Start Date End Date Pardeep Du MD [address] [place] [address], 2nd [place] [address] francisco PCP - General Internal Medicine 04/01/19 05/18/24 Delilah Cervantes DO [address] [place] [address] PCP - General Family Medicine 05/19/24 05/02/25 Kirstin Reyes PA [address] [place] [address] [place] [address] PCP - General Physician Education Coordinator 05/03/25 Pardeep Du MD [address] [place] [address], 2nd [place] [address] francisco [email or web address] Insurance Assigned Provider 08/08/19 07/06/23 Jessie Smith, RN [address] [place] [address] [email or web address] iCMP Collections Attorney 12/12/22 01/24/23 documented as of this encounter Additional Source Comments The information contained in this document represents components of the legal health record. It is not the complete legal health record.[facility]
--- OUTSIDE RECORDS SUMMARY | 2025-08-03 14:45 | XMS_ITS | Encounter Summary ---
Author Organization [facility] Address [address] [address] [place] [address] Phone Care Team Providers Care Tea Bag Machine Tender Name Role Phone Pardeep Du MD Primary Care Provider Pardeep Du MD Unavailable [phone] Jessie Smith RN Unavailable [phone] Delilah Cervantes DO Primary Care Provider Kirstin Reyes Primary Care Provide r Encounter Details Date Type Department Care Team (Late st Contact Info) Description 08/07/2021 Procedure Pass [facility], Ct Scan - [address] [address] Social History Tobacco Use Types Packs/Day Years [...] education for yourself related to: Learning the [place] language? Completing high school, earning a high [...] 7:48 PM EDT Aniyah Price RN * [place] Suicide Severity Rating Scale (Screener/Recent Self-Report) Question [...] documented as of this encounter Care Teams Tea Bag Machine Tender Relationship Specialty Start Date End Date Pardeep Du MD [address] [place] [address] [email or web address] PCP - General Internal Medicine 04/01/19 05/18/24 Delilah Cervantes DO [address] [place] [address] PCP - General Family Medicine 05/19/24 05/02/25 Kirstin Reyes PA [address] [place] [address] PCP - General Physician Dietitian Therapeutic 05/03/25 Pardeep Du MD [address] [place] [address] francisco Insurance Assigned Provider 08/08/19 07/06/23 Jessie Smith, RN [address] [place] [address] [email or web address] iCMP Cheese Cutter 12/12/22 01/24/23 documented as of this encounter Additional Source Comments The information contained in this document represents components of the legal health record. It is not the complete legal health record.[facility]
--- OUTSIDE RECORDS SUMMARY | 2025-08-03 14:45 | XMS_ITS | Encounter Summary ---
Author Organization [facility] Address [address] [place] [address] Phone Care Team Providers Care Glycerine Plant Operator Name Role Phone Pardeep Du MD Primary Care Provider [phone] Pardeep Du MD Unavailable [phone] Jessie Smith RN Unavailable [phone] Delilah Cervantes DO Primary Care Provider Kirstin Reyes Primary Care Provide r Encounter Details Date Type Department Care Team (Late st Contact Info) Description 02/28/2022 Procedure Pass [facility] - [address] [place] [address] Social History Tobacco Use Types Packs/Day Years [...] education for yourself related to: Learning the [place] language? Completing high school, earning a high [...] documented as of this encounter Care Teams Glycerine Plant Operator Relationship Specialty Start Date End Date Pardeep Du MD [address] [place] [address], 2nd [place] [address] francisco PCP - General Internal Medicine 04/01/19 05/18/24 Delilah Cervantes DO [address] [place] [address] PCP - General Family Medicine 05/19/24 05/02/25 Kirstin Reyes PA [address] [place] [address] [place] [address] PCP - General Physician Topstitcher Lockstitch 05/03/25 Pardeep Du MD [address] [place] [address], 2nd [place] [address] francisco [email or web address] Insurance Assigned Provider 08/08/19 07/06/23 Jessie Smith, RN [address] [place] [address] [email or web address] iCMP Cardiac Catheterization Technician 12/12/22 01/24/23 documented as of this encounter Additional Source Comments The information contained in this document represents components of the legal health record. It is not the complete legal health record.[facility]
--- OUTSIDE RECORDS SUMMARY | 2025-08-03 14:45 | XMS_ITS | Encounter Summary ---
Author Organization [facility] Address [address] [facility] [address] [place] [address] Phone Care Team Providers Care Chief Librarian Circulation Department Name Role Phone Pardeep Du MD Primary Care Provider [phone] Pardeep Du MD Unavailable [phone] Jessie Smith RN Unavailable [phone] Delilah Cervantes DO Primary Care Provider [phone] Kirstin Reyes Primary Care Provide r Encounter Details Date Type Department Care Team (Late st Contact Info) Description 06/02/2019 Procedure Pass [facility], [address] [place] [address] Social History Tobacco Use Types Packs/Day Years [...] as of this encounter Care Teams Chief Librarian Circulation Department Relationship Specialty Start Date End Date Pardeep Du MD [address] [place] [address], 2nd [place] [address] francisco PCP - General Internal Medicine 04/01/19 05/18/24 Delilah Cervnates DO [address] [place] [address] PCP - General Family Medicine 05/19/24 05/02/25 Kirstin Reyes PA [address] [place] [address] [place] [address] PCP - General Physician Door To Door Selling Distributor 05/03/25 Pardeep Du MD [address] [place] [address], 2nd [place] [address] francisco [email or web address] Insurance Assigned Provider 08/08/19 07/06/23 Jessie Smith, RN [address] [place] [phone] [email or web address] iCMP Retort Load Expediter 12/12/22 01/24/23 documented as of this encounter Additional Source Comments The information contained in this document represents components of the legal health record. It is not the complete legal health record.[facility]
--- OUTSIDE RECORDS SUMMARY | 2025-08-03 14:45 | XMS_ITS | Encounter Summary ---
Author Organization [facility] Address [address] [facility] [address] [place] [address] Phone Care Team Providers Care Tape Recorder Repairer Name Role Phone Pardeep Du MD Primary Care Provider [phone] Pardeep Du MD Unavailable [phone] Jessie Smith RN Unavailable [phone] Delilah Cervantes DO Primary Care Provider Kirstin Reyes Primary Care Provide r Encounter Details Date Type Department Care Team (Late st Contact Info) Description 02/28/2022 Procedure Pass [facility] - [address] [place] [address] Social History Tobacco Use Types Packs/Day Years [...] documented as of this encounter Care Teams Tape Recorder Repairer Relationship Specialty Start Date End Date Pardeep Du MD [address] [place] [address], 2nd [place] [address] francisco PCP - General Internal Medicine 04/01/19 05/18/24 Delilah Cervantes DO [address] [place] [address] PCP - General Family Medicine 05/19/24 05/02/25 Kirstin Reyes PA NPI: [id number] [place] [address] [place] [address] PCP - General Physician Stem Crusher 05/03/25 Pardeep Du MD [address] [place] [address], 2nd [place] [address] francisco [email or web address] Insurance Assigned Provider 08/08/19 07/06/23 Jessie Smith, RN [address] [place] [address] [email or web address] iCMP Resident Care Technician 12/12/22 01/24/23 documented as of this encounter Additional Source Comments The information contained in this document represents components of the legal health record. It is not the complete legal health record.[facility]
--- OUTSIDE RECORDS SUMMARY | 2025-08-03 14:45 | XMS_ITS | Encounter Summary ---
Author Organization [facility] Address [address] [facility] [address] [place] [address] Phone Care Team Providers Care Fiber Optics Technician Name Role Phone Pardeep Du MD Primary Care Provider Delilah Cervantes DO Primary Care Provider Kirstin Reyes Primary Care Provide r Encounter Details Date Type Department Care Team (Late st Contact Info) Description 11/29/2023 Procedure Pass [facility], [address] [address] Social History Tobacco Use Types Packs/Day Years [...] documented as of this encounter Care Teams Fiber Optics Technician Relationship Specialty Start Date End Date Pardeep Du MD [address] [place] [address], 2nd [place] [address] francisco PCP - General Internal Medicine 04/01/19 05/18/24 Delilah Cervantes DO [address] [place] [address] PCP - General Family Medicine 05/19/24 05/02/25 Kirstin Reyes PA [address] [place] [address] [place] [address] PCP - General Physician Superintendent Sanitation 05/03/25 documented as of this encounter Additional Source Comments The information contained in this document represents components of the legal health record. It is not the complete legal health record.[facility]
--- OUTSIDE RECORDS SUMMARY | 2025-08-03 14:45 | XMS_ITS | Encounter Summary ---
Author Organization [facility] Address [address] [facility] [address] [place] [address] Phone Care Team Providers Care Veterans' Coordinator Name Role Phone Pardeep Du MD Primary Care Provider Pardeep Du MD Unavailable [phone] Jessie Smith RN Unavailable [phone] Delilah Cervantes DO Primary Care Provider Kirstin Reyes Primary Care Provide r Encounter Details Date Type Department Care Team (Late st Contact Info) Description 03/05/2022 Procedure Pass [facility], Ct Scan - [address] [address] Social History Tobacco Use Types Packs/Day Years [...] education for yourself related to: Learning the [place] language? Completing high school, earning a high [...] 1:02 PM EDT Drake Cha, MEGHAN * [place] Suicide Severity Rating Scale (Screener/Recent Self-Report) Question [...] documented as of this encounter Care Teams Veterans' Coordinator Relationship Specialty Start Date End Date Pardeep Du MD [address] [place] [address], [address] [place] [address] francisco PCP - General Internal Medicine 04/01/19 05/18/24 Delilah Cervantes DO [address] [place] [address] PCP - General Family Medicine 05/19/24 05/02/25 Kirstin Reyes PA [address] [place] [address] PCP - General Physician Audience Coordinator 05/03/25 Pardeep Du MD [address] [place] [address], [address] [place] [address] francisco [email or web address] Insurance Assigned Provider 08/08/19 07/06/23 Jessie Smith, RN [address] [place] [address] [email or web address] iCMP Or First Assist Registered Nurse 12/12/22 01/24/23 documented as of this encounter Additional Source Comments The information contained in this document represents components of the legal health record. It is not the complete legal health record.[facility]
--- OUTSIDE RECORDS SUMMARY | 2025-08-03 14:45 | XMS_ITS | Encounter Summary ---
Author Organization [facility] Address [address] [facility] [address] [place] [address] Phone Care Team Providers Care Car Rental Agent Name Role Phone Pardeep Du MD Primary Care Provider Delilah Cervantes DO Primary Care Provider Kirstin Reyes Primary Care Provide r Encounter Details Date Type Department Care Team (Late st Contact Info) Description 04/06/2024 Procedure Pass [facility], Ct Scan - [address] [id number] Social History Tobacco Use Types Packs/Day Years [...] as of this encounter Care Teams Car Rental Agent Relationship Specialty Start Date End Date Pardeep Du MD [address] [place] [address], 2nd [place] [address] francisco [email or web address] PCP - General Internal Medicine 04/01/19 05/18/24 Delilah Cervantes DO [address] [place] [address] PCP - General Family Medicine 05/19/24 05/02/25 Kirstin Reyes PA [address] [place] [address] [place] [address] PCP - General Physician Reconnaissance Man 05/03/25 documented as of this encounter Additional Source Comments The information contained in this document represents components of the legal health record. It is not the complete legal health record.[facility]
--- OUTSIDE RECORDS SUMMARY | 2025-08-03 14:45 | XMS_ITS | Encounter Summary ---
Author Organization [facility] Address [address] [facility] [address] [place] [address] Phone Care Team Providers Care Key Worker Name Role Phone Pardeep Du MD Primary Care Provider Pardeep Du MD Unavailable Jessie Smith RN Unavailable Delilah Cervantes DO Primary Care Provider Kirstin Reyes Primary Care Provide r Encounter Details Date Type Department Care Team (Late st Contact Info) Description 07/23/2019 Ancillary Orders Non-Invasive Cardiology [address] [place] [address] Pardeep Du MD [address] [facility], 2nd [place] [address] francisco [email or web address] Chest pain, unspecified type Social History Tobacco [...] education for yourself related to: Learning the Gibraltarian language? Completing high school, earning a high [...] AM EDT) Max BP Systolic 130 mmHg [facility] Max BP Diastolic 70 mmHg [facility] Max HR 88 BPM [facility] Resting HR 57 BPM [facility] Resting BP Systolic 126 mmHg [facility] Resting BP Diastolic 78 mmHg [facility] Peak METS 1.0 METS [facility] Peak HR 87 BPM [facility] Anatomical Region Laterality Modality Heart Other [...] injection of the Tc99m Sestamibi by the medical doctor nuclear medicine. Patient tolerated infusion without complications. Test terminated [...] documented as of this encounter Care Teams Key Worker Relationship Specialty Start Date End Date Pardeep Du MD [address] [place] [address], 2nd [place] [address] francisco PCP - General Internal Medicine 04/01/19 05/18/24 Delilah Cervantes DO [address] [place] [address] PCP - General Family Medicine 05/19/24 05/02/25 Kirstin Reyes PA [address] [place] [address] PCP - General Physician Leather Currier 05/03/25 Pardeep Du MD [address] [place] [address], 2nd [place] [address] francisco [email or web address] Insurance Assigned Provider 08/08/19 07/06/23 Jessie Smith, RN [address] [place] [address] [email or web address] iCMP Temporary Staff Accountant 12/12/22 01/24/23 documented as of this encounter Additional Source Comments The information contained in this document represents components of the legal health record. It is not the complete legal health record.[facility]
--- OUTSIDE RECORDS SUMMARY | 2025-08-03 14:45 | XMS_ITS | Encounter Summary ---
Author Organization [facility] Address [address] [facility] [address] [place] [address] Phone Care Team Providers Care Dry Color Tester Name Role Phone Pardeep Du MD Primary Care Provider Pardeep Du MD Unavailable [phone] Jessie Smith RN Unavailable [phone] Delilah Cervantes DO Primary Care Provider [phone] Kirstin Reyes Primary Care Provide r Encounter Details Date Type Department Care Team (Late st Contact Info) Description 03/23/2021 Procedure Pass [facility], [address] [place] [address] Social History Tobacco Use Types Packs/Day Years [...] education for yourself related to: Learning the Azerbaijani language? Completing high school, earning a high [...] documented as of this encounter Care Teams Dry Color Tester Relationship Specialty Start Date End Date Pardeep Du MD [address] [place] [address], 2nd [place] [address] francisco PCP - General Internal Medicine 04/01/19 05/18/24 Delilah Cervantes DO [address] [place] [address] PCP - General Family Medicine 05/19/24 05/02/25 Kirstin Reyes PA [address] [place] [address] [place] [address] PCP - General Physician Educational/Development Assistant 05/03/25 Pardeep Du MD [address] [place] [address], 2nd [place] [address] [email or web address] Insurance Assigned Provider 08/08/19 07/06/23 Jessie Smith, RN [address] [place] [address] [email or web address] iCMP Scrap Handler 12/12/22 01/24/23 documented as of this encounter Additional Source Comments The information contained in this document represents components of the legal health record. It is not the complete legal health record.[facility]
--- OUTSIDE RECORDS SUMMARY | 2025-08-03 14:45 | XMS_ITS | Encounter Summary ---
Author Organization [facility] Address [address] [facility] [address] [place] [address] Phone Care Team Providers Care Foreign Agent Name Role Phone Pardeep Du MD Primary Care Provider [phone] Pardeep Du MD Unavailable [phone] Jessie Smith RN Unavailable [phone] Delilah Cervantes DO Primary Care Provider [phone] Kirstin Reyes Primary Care Provide r Reason [...] Expiration Date Visits Re quested Visits Authorized [id number] Closed 05/17/2020 05/17/2021 3 3 Encounter Details Date Type Department Care Team (Late st Contact Info) Description 05/10/2020 Ancillary Orders Virtual Department 30 [place] [address] Shazia Yeh NP [address] [place] [phone] [email or web address] Derangement of anterior horn of lateral [...] education for yourself related to: Learning the Mexican language? Completing high school, earning a high [...] documented as of this encounter Care Teams Foreign Agent Relationship Specialty Start Date End Date Pardeep Du MD [address] [place] [address], [address] [place] [address] francisco PCP - General Internal Medicine 04/01/19 05/18/24 Delilah Cervantes DO [address] [place] [address] PCP - General Family Medicine 05/19/24 05/02/25 Kirstin Reyes PA [address] [place] [address] [place] [address] PCP - General Physician Laboratory Geneticist 05/03/25 Pardeep Du MD [address] [place] [address], [address] [place] [phone] francisco Insurance Assigned Provider 08/08/19 07/06/23 Jessie Smith, MEGHAN [address] [place] [address] [email or web address] iCMP Dispatcher Service Chief 12/12/22 01/24/23 documented as of this encounter Additional Source Comments The information contained in this document represents components of the legal health record. It is not the complete legal health record.[facility]
--- OUTSIDE RECORDS SUMMARY | 2025-08-03 14:45 | XMS_ITS | Clinical Summary ---
Author Organization [facility] Address [address] [facility] [address] [place] [address] Phone Care Team Providers Care Instrument Maker Name Role Phone Kirstin Reyes Primary Care [...] would like to switch her doctors to [facility]. Referral placed. Assessment & Plan (12/30/2023 [...] 4:55 PM EST): This is a 52-year-old Cymraes-speaking woman who I saw using a textile finisher today who has lost about 7 and [...] 12:16 PM EST): This is a 52-year-old Cymraes-speaking woman who started the program at [facility] and did not lose very much weight on the program. The patient is now restarting the program at [facility] in an effort to undergo laparoscopic [...] protein shake or a protein bar or Qatari yogurt or cottage cheese to be consumed [...] weight loss with the bariatric surgeons at [facility]. She is preparing for surgery. No [...] Department Care Team Description 05/24/2025 Refill [facility] [address] Pardeep Du MD Medication Refill 05/03/2025 10:33 AM EDT Anesthesia Event [facility] Endoscopy Admitting Dept Virtual Department [address] [place] [address] Drake Mcgovern MD 05/03/2025 10:30 AM EDT - 05/03/2025 11:00 AM EDT Surgery [facility] Endoscopy Admitting Dept Virtual Department [address] [place] [address] Lani Marion MD COLONOSCOPY 05/03/2025 9:27 AM EDT - 05/03/2025 12:00 PM EDT Hospital Encounter [facility] Endoscopy Admitting Dept Virtual Department [address] [place] [address] Lani Marion MD Discharge Disposition: Home or Self Care 05/03/2025 Procedure Pass [facility]oscopy Admitting Dept Virtual Department [address] [place] [phone] from Last 3 Months Immunizations Immunization Administration [...] this topic Medical Devices Implanted Type Area Home Care Administrator Device Identifier Shelf Expiration Date Model / Serial / Lot System Implant Achilles Speedbridge Biocomposite - [id number] Implanted:Qty: 1 on 06/20/2022 by Drake Canales MD at [facility] Left: Ankle ARTHREX 03/27/2025 [id number] / / [id number] Procedures Procedure Name Priority Date/Time Associated Diagnosis Comments DE COLSC FLX W/RMVL OF TUMOR POLYP LESION SNARE TQ 05/03/2025 10:29 AM EDT Gastroesophageal reflux disease without esophagitis Slow transit constipation Hx of colonic polyps Special Needs Hx CHF - cardiac workup done - see notes DE COLONOSCOPY W/BIOPSY SINGLE/MULTIPLE 05/03/2025 10:29 AM EDT Gastroesophageal reflux disease without esophagitis Slow transit constipation Hx of colonic polyps Special Needs Hx CHF -2022 - cardiac workup done - see notes DE COLONOSCOPY FLX DX W/COLLJ SPEC WHEN PFRMD [...] Marion MD - 05/03/2025 10:24 AM EDT [facility] Patient Name: Heidi Erickson Jass Attending MD:: LANI MARION MD, Procedure Date: 05/03/2025 10:24 AM Date of : 1970 Age: 54 Admit Type: Outpatient Gender: Female Room: [place] [address] Referring MD: Kirstin Reyes Exam Type: Colonoscopy [...] monitored continuously. The Olympus adult variable colonoscope [id number] #1 was introduced through the anus and [...] 10:24 AM Procedure Code(s): --- Professional --- 48702, Colonoscopy, flexible; with removal of tumor(s), polyp(s), or other lesion(s) by snare technique --- Technical --- 84230, Colonoscopy, flexible; with removal of tumor(s), polyp(s), or other lesion(s) by snare technique CPT copyright 2021 [employer]. All rights reserved. The codes documented in this report are preliminary and upon bonding machine tender reviewmay be revised to meet current compliance requirements. Procedure Date: 05/03/2025 10:24:[address] [place] [address] Kirstin GRAJEDA GI PROCEDURE ORDERABL ES Final Result * Anatomic Pathology (05/03/2025 12:00 AM EDT) 05/03/2025 05/03/2025 1:3 4 PM EDT Narrative SEE NARRATIVE - 05/04/2025 4:43 PM EDT [address] [address] Brazer Crawler Torch: Jonatan Wilks MD Surgical Pathology Report FINAL [...] : 1970 (Age: 54) Sex: F [facility] Date of Operation: 05/03/2025 Date of Reported: [...] (12/09/2022 4:15 AM EST) HDL 66 mg/dL [facility] Comment: Interpretation <40 mg/dL: Low HDL cholesterol (major risk factor for CHD) Greater than or equal to 60 mg/dL: High HDL cholesterol ( negative risk factor for CHD) HDL - cholesterol is affected by a number of factors, e.g. smoking, excerise, hormones, sex and age. CHOLESTEROL 163 0 - 240 mg/dL [facility] TRIGLYCERIDES 73 30 - 160 mg/dL [facility] LDL 82 50 - 129 mg/dL [facility] Comment: LDL levels in terms of risk for coronary heart disease: <100 mg/dL: Optimal 100-129 mg/dL: Near or above optimal 130-159 mg/dL: Borderline high 160-189 mg/dL: High >190 mg/dL: Very High CARDIAC RISK RATIO 2.5(L) 3.3 - 4.4 C [facility] Blood 12/09/2022 4:15 AM EST 12/09/2022 4:23 AM EST us Olinda Higgins MD LAB BLOOD ORDERABLES Final Result [facility] [address] [place] [address] * Pap Smear (03/20/2022 12:00 AM EDT) 03/20/2022 03/21/2022 8:4 4 AM EDT Narrative SEE NARRATIVE - 03/27/2022 11:19 AM EDT [address] [address] Brazer Crawler Torch: Emily Estevez MD ROLL THREADER OPERATOR Cytology Report FINAL DIAGNOSIS A. PAP SMEAR [...] 52, 56, 58, 59, 66, 68) by [employer] Onclarity HR-HPV analysis. Clinical correlation is advised. This HPV test was performed at [facility], [address] [place] [address]. This test has been FDA approved for [employer] cervical cytology specimens. The accuracy and precision of this test for all other specimen sources has been verified in the Cytopathology Laboratory of the [facility] and has not been cleared or approved by the U.S. Food and Drug Administration. Clinical correlation is advised. CLINICAL HISTORY Date of Last Menstrual Period: 03-20-2022 Menstrual History: Bleeding, Abnormal Other Clinical Conditions: Screening Pap SPECIMEN SOURCE A: PAP SMEAR (SUREPATH) CE Patient Name: HEIDI GUPTA : 1970 (Age: 51) Sex: F Institution: [facility] Location: [facility] Date of Collection: 03/20/2022 Date of Reported: 03/27/2022 11:19 Results to: Ted Bello MD us Ted Bello MD CYTOLOGY ORDERABLES Final Result SEE NARRATIVE * Hepatitis C antibody, qualitative (01/25/2022 8:02 AM EDT) HCV NON-REACTIV E NON-REACTI VE [facility] Blood 01/25/2022 8:02 AM EDT 01/25/2022 8:06 AM EDT us Pardeep Du MD LAB BLOOD ORDERABLES Final Result Performing Organization Address City/[facility] Co de Phone Number [facility] [address] [place] [address] * CT CHEST PULMONARY ANGIOGRAM (ACUTE) (09/26/2019 1:20 AM EST) Anatomical Region Laterality Modality Chest, Thoracic Vasculature Comp uted Tomography 09/26/2019 8:24 AM EST Impressions 09/26/2019 8:29 AM EST No pulmonary embolism demonstrated. Peripheral subsegmental emboli could be occult on this examination. No focal airspace infiltrate or pleural effusion. These findings were relayed to the Emergency Department by the [facility] on 09/26/2019. Incidental non-obstructive left nephrolithiasis. TOTAL CTDIvol: 113.60 mGy POS - [id number] Narrative 09/26/2019 8:29 AM EST COMPARISON: 09/25/2019 [...] were relayed to the Emergency Department by [facility] on 09/26/2019. Incidental non-obstructive left nephrolithiasis. TOTAL CTDIvol: 113.60 mGy POS - [id number] us Dilshad Duncan DO IMG CT CHEST Final Result from Last 3 Months or Most Recently Relevant to Health Maintenance Insurance [facility] PROGRESSIVE INSURANCE Advance Directives For more information, please contact: [phone] (9AM - 5PM [facility], Saturday-Saturday) * Full Code (Latest Code Status on File) Date Activated Date Inactivated Comments 12/09/2022 3:44 AM Question Answer Comments Code Status Confirmed With: PatientFamily Care Teams Instrument Maker Relationship Specialty Start Date End Date Kirstin Reyes PA [address] [place] [address] [place] [address] PCP - General Physician Spring Floor Service Worker 05/03/25 Additional Source Comments The information contained in this document represents components of the legal health record. It is not the complete legal health record.[facility]
--- OUTSIDE RECORDS SUMMARY | 2025-08-03 14:45 | XMS_ITS | Clinical Summary ---
Author Organization [employer] Address [address] [facility] 7t [place] [address] Care Team Providers Care Dairy And Food Laboratory Assistant Name Role Phone Unavailable Primary Care [...] patient's age to complete this topic Insurance [facility] C3
--- OUTSIDE RECORDS SUMMARY | 2025-08-03 14:45 | XMS_ITS | Encounter Summary ---
Author Organization [facility] Address [address] [facility] [address] [place] [address] Phone Care Team Providers Care Mixer Crane Operator Name Role Phone Pardeep Du MD Primary Care Provider Pardeep Du MD Unavailable [phone] Jessie Smith RN Unavailable [phone] Delilah Cervantes DO Primary Care Provider Kirstin Reyes Primary Care Provide r Encounter Details Date Type Department Care Team (Late st Contact Info) Description 10/04/2021 Procedure Pass [facility], [facility] [address] [place] [address] Social History Tobacco Use Types Packs/Day Years [...] documented as of this encounter Care Teams Mixer Crane Operator Relationship Specialty Start Date End Date Pardeep Du MD [address] [place] [address], 2nd [place] [address] francisco PCP - General Internal Medicine 04/01/19 05/18/24 Delilah Cervantes DO [address] [place] [address] PCP - General Family Medicine 05/19/24 05/02/25 Kirstin Reyes PA [address] [place] [address] [place] [address] PCP - General Physician Per Diem 05/03/25 Pardeep Du MD [address] [place] [address], 2nd [place] [address] francisco [email or web address] Insurance Assigned Provider 08/08/19 07/06/23 Jessie Smith, RN [address] [place] [address] [email or web address] iCMP Phy Therapist 12/12/22 01/24/23 documented as of this encounter Additional Source Comments The information contained in this document represents components of the legal health record. It is not the complete legal health record.[facility]
--- OUTSIDE RECORDS SUMMARY | 2025-08-03 14:45 | XMS_ITS | Encounter Summary ---
Author Organization [facility] Address [address] [facility] [address] [place] [address] Phone Care Team Providers Care Textbook Associate Name Role Phone Pardeep Du MD Primary Care Provider [phone] Pardeep Du MD Unavailable [phone] Delilah Cervantes DO Primary Care Provider Kirstin Reyes Primary Care Provide r Encounter Details Date Type Department Care Team (Late st Contact Info) Description 04/05/2023 Procedure Pass [facility], [address] [address] Social History Tobacco Use Types Packs/Day Years [...] documented as of this encounter Care Teams Textbook Associate Relationship Specialty Start Date End Date Pardeep Du MD [address] [place] [address], 2nd [place] [address] francisco PCP - General Internal Medicine 04/01/19 05/18/24 Delilah Cervantes DO [address] [place] [address] PCP - General Family Medicine 05/19/24 05/02/25 Kirstin Reyes PA [address] [place] [address] PCP - General Physician Regional Forester 05/03/25 Pardeep Du MD [address] [place] [address], 2nd [place] [address] francisco [email or web address] Insurance Assigned Provider 08/08/19 07/06/23 documented as of this encounter Additional Source Comments The information contained in this document represents components of the legal health record. It is not the complete legal health record.[facility]
--- OUTSIDE RECORDS SUMMARY | 2025-08-03 14:45 | XMS_ITS | Encounter Summary ---
Author Organization [facility] Address [address] [facility] [address] [place] [address] Phone Care Team Providers Care Research Staff Member Name Role Phone Pardeep Du MD Primary Care Provider Pardeep Du MD Unavailable Jessie Smith RN Unavailable Delilah Cervantes DO Primary Care Provider Kirstin Reyes Primary Care Provide r Encounter Details Date Type Department Care Team (Late st Contact Info) Description 09/13/2021 Transcribe Orders Virtual Department [address] [place] [address] Pardeep Du MD [address] [facility], 2nd [place] [address] francisco [email or web address] Social History Tobacco Use Types Packs/Day Years [...] education for yourself related to: Learning the Czech language? Completing high school, earning a high [...] documented as of this encounter Care Teams Research Staff Member Relationship Specialty Start Date End Date Pardeep Du MD [address] [place] [address], 2nd [place] [address] francisco PCP - General Internal Medicine 04/01/19 05/18/24 Delilah Cervantes DO [address] [place] [address] PCP - General Family Medicine 05/19/24 05/02/25 Kirstin Reyes PA [address] [place] [address] PCP - General Physician Passport Application Examiner 05/03/25 Pardeep Du MD [address] [place] [address], 2nd [place] [address] francisco Insurance Assigned Provider 08/08/19 07/06/23 Jessie Smith, RN [address] [place] [address] [email or web address] iCMP Machine Castings Plasterer 12/12/22 01/24/23 documented as of this encounter Additional Source Comments The information contained in this document represents components of the legal health record. It is not the complete legal health record.[facility]
--- OUTSIDE RECORDS SUMMARY | 2025-08-03 14:45 | XMS_ITS | Encounter Summary ---
Author Organization [facility] Address [address] [facility] [address] [place] [address] Phone Care Team Providers Care Information Management Specialist Name Role Phone Pardeep Du MD Primary Care Provider [phone] Delilah Cervantes DO Primary Care Provider [phone] Kirstin Reyes Primary Care Provide r Reason for Referral * MRI/CAT Scan - Closed Specialty Diagnoses / Procedures Referred By Madhav carias Referred To Contact Radiology Diagnoses LLQ abdominal pain Constipation, unspecified constipation type Procedures CT Abdomen/Pelvis CHG CT SCAN,ABDOMENT AND PELVIS,W CONTRAST Gilda Carranza PA-C Phone: tel: fax: [email or web address] Referral ID Status Reason Start Date Expiration Date Visits Re quested Visits Authorized [id number] Closed 07/07/2024 09/05/2024 1 1 Encounter Details Date Type Department Care Team (Latest Contact Info) Description 04/06/2024 Transcribe Orders Virtual Department [address] [place] [address] Gilda Carranza PA-C [address] [place] [address] LLQ abdominal pain (Primary Dx); Constipation, unspecified [...] llq abdomen pain, [facility] lower [facility] as well as constipation [...] documented as of this encounter Care Teams Information Management Specialist Relationship Specialty Start Date End Date Pardeep Du MD [address] [place] [address], 2nd [place] [address] [email or web address] PCP - General Internal Medicine 04/01/19 05/18/24 Delilah Cervantes DO [address] [place] [address] PCP - General Family Medicine 05/19/24 05/02/25 Kirstin Reyes PA [address] [place] [address] [place] [address] PCP - General Physician Barrel Cooper 05/03/25 documented as of this encounter Additional Source Comments The information contained in this document represents components of the legal health record. It is not the complete legal health record.[facility]
--- OUTSIDE RECORDS SUMMARY | 2025-08-03 14:45 | XMS_ITS | Encounter Summary ---
Author Organization [facility] Address [address] [facility] [address] [place] [address] Phone Care Team Providers Care Airborne And Air Delivery Specialist Name Role Phone Pardeep Du MD Primary Care Provider [phone] Pardeep Du MD Unavailable [phone] Jessie Smith RN Unavailable [phone] Delilah Cervantes DO Primary Care Provider Kirstin Reyes Primary Care Provide r Encounter Details Date Type Department Care Team (Late st Contact Info) Description 12/09/2022 Procedure Pass [facility] 30 [place] [address] Social History Tobacco Use Types Packs/Day Years [...] documented as of this encounter Care Teams Airborne And Air Delivery Specialist Relationship Specialty Start Date End Date Pardeep Du MD [address] [place] [address], 2nd [place] [address] francisco PCP - General Internal Medicine 04/01/19 05/18/24 Delilah Cervantes DO [address] [place] [address] PCP - General Family Medicine 05/19/24 05/02/25 Kirstin Reyes PA [address] [place] [address] [place] [address] PCP - General Physician Corporation Lawyer 05/03/25 Pardeep Du MD [address] [place] [address], 2nd [place] [address] francisco [email or web address] Insurance Assigned Provider 08/08/19 07/06/23 Jessie Smith, RN [address] [place] [address] [email or web address] iCMP Fixed Income Analyst 12/12/22 01/24/23 documented as of this encounter Additional Source Comments The information contained in this document represents components of the legal health record. It is not the complete legal health record.[facility]
--- OUTSIDE RECORDS SUMMARY | 2025-08-03 14:45 | XMS_ITS | Encounter Summary ---
Author Organization [facility] Address [address] [facility] [address] [place] [address] Phone Care Team Providers Care Windrower Operator Name Role Phone Pardeep Du MD Primary Care Provider Pardeep Du MD Unavailable [phone] Jessie Smith RN Unavailable [phone] Delilah Cervantes DO Primary Care Provider Kirstin Reyes Primary Care Provide r Encounter Details Date Type Department Care Team (Late st Contact Info) Description 04/06/2022 Procedure Pass [facility] Endoscopy Admitting Dept Virtual Department 30 [place], [place] [id number] Social History Tobacco Use Types Packs/Day Years [...] documented as of this encounter Care Teams Windrower Operator Relationship Specialty Start Date End Date Pardeep Du MD [address] [place] [address], 2nd [place] [address] francisco PCP - General Internal Medicine 04/01/19 05/18/24 Delilah Cervantes DO [address] [place] [address] PCP - General Family Medicine 05/19/24 05/02/25 Kirstin Reyes PA [address] [place] [address] [place] [address] PCP - General Physician Tubular Stock Glass Bulb Machine Former 05/03/25 Pardeep Du MD [address] [place] [address], 2nd [place] [address] francisco [email or web address] Insurance Assigned Provider 08/08/19 07/06/23 Jessie Smith, RN [address] [place] [address] [email or web address] iCMP Information Systems Security Analyst 12/12/22 01/24/23 documented as of this encounter Additional Source Comments The information contained in this document represents components of the legal health record. It is not the complete legal health record.[facility]
--- OUTSIDE RECORDS SUMMARY | 2025-08-03 14:45 | XMS_ITS | Encounter Summary ---
Author Organization [facility] Address [address] [facility] [address] [place] [address] Phone Care Team Providers Care Plant Wire Chief Name Role Phone Pardeep Du MD Primary Care Provider [phone] Pardeep Du MD Unavailable [phone] Jessie Smith RN Unavailable [phone] Delilah Cervantes DO Primary Care Provider Kirstin Reyes Primary Care Provide r Encounter Details Date Type Department Care Team (Late st Contact Info) Description 09/16/2019 Ancillary Orders [facility],Outside Imaging 30 [place], [place] [phone] System, Provider Not In, PhD Partners [address] [address] Social History Tobacco Use Types Packs/Day Years [...] education for yourself related to: Learning the Uzbek language? Completing high school, earning a high [...] documented as of this encounter Care Teams Plant Wire Chief Relationship Specialty Start Date End Date Pardeep Du MD [address] [place] [address], [address] [place] [address] francisco PCP - General Internal Medicine 04/01/19 05/18/24 Delilah Cervantes DO [address] [place] [address] PCP - General Family Medicine 05/19/24 05/02/25 Kirstin Reyes PA [address] [place] [address] [place] [address] PCP - General Physician Machine Gunner 05/03/25 Pardeep Du MD [address] [place] [address] francisco Insurance Assigned Provider 08/08/19 07/06/23 Jesise Smith, RN [address] [place] [address] iCMP Wagon Driver Salesperson 12/12/22 01/24/23 documented as of this encounter Additional Source Comments The information contained in this document represents components of the legal health record. It is not the complete legal health record.[facility]
--- OUTSIDE RECORDS SUMMARY | 2025-08-03 14:45 | XMS_ITS | Encounter Summary ---
Author Organization [facility] Address [address] [facility] [address] [place] [address] Phone Care Team Providers Care Federal Mediator Name Role Phone Pardeep Du MD Primary Care Provider [phone] Pardeep Du MD Unavailable [phone] Jessie Smith RN Unavailable [phone] Delilah Cervantes DO Primary Care Provider Kirstin Reyes Primary Care Provide r Encounter Details Date Type Department Care Team (Late st Contact Info) Description 06/30/2019 Procedure Pass [facility], [address] [place] [address] Social History Tobacco Use Types Packs/Day Years [...] documented as of this encounter Care Teams Federal Mediator Relationship Specialty Start Date End Date Pardeep Du MD [address] [place] [address], 2nd [place] [address] PCP - General Internal Medicine 04/01/19 05/18/24 Delilah Cervantes DO [address] [place] [address] PCP - General Family Medicine 05/19/24 05/02/25 Kirstin Reyes PA [address] [place] [address] [place] [address] PCP - General Physician Litigation Partner 05/03/25 Pardeep Du MD [address] [place] [address], 2nd [place] [address] francisco [email or web address] Insurance Assigned Provider 08/08/19 07/06/23 Jessie Smith, RN [address] [place] [address] [email or web address] iCMP Belt Changer 12/12/22 01/24/23 documented as of this encounter Additional Source Comments The information contained in this document represents components of the legal health record. It is not the complete legal health record.[facility]
--- OUTSIDE RECORDS SUMMARY | 2025-08-03 14:45 | XMS_ITS | Encounter Summary ---
Author Organization [facility] Address [address] [facility] [address] [place] [address] Phone Care Team Providers Care Special Investigation Unit Investigator Name Role Phone Pardeep Du MD Primary Care Provider [phone] Pardeep Du MD Unavailable [phone] Jessie Smith RN Unavailable [phone] Delilah Cervantes DO Primary Care Provider Kirstin Reyes Primary Care Provide r Encounter Details Date Type Department Care Team (Late st Contact Info) Description 09/16/2019 Ancillary Orders [facility],Outside Imaging 30 [place], [place] [id number] System, Provider Not In, PhD Partners [address] [address] Social History Tobacco Use Types Packs/Day Years [...] documented as of this encounter Care Teams Special Investigation Unit Investigator Relationship Specialty Start Date End Date Pardeep Du MD [address] [place] [address], [address] [place] [address] francisco PCP - General Internal Medicine 04/01/19 05/18/24 Delilah Cervantes DO [address] [place] [address] PCP - General Family Medicine 05/19/24 05/02/25 Kirstin Reyes PA [address] [place] [address] [place] [address] PCP - General Physician Plasterer Journeyman 05/03/25 Pardeep Du MD [address] [place] [address] francisco Insurance Assigned Provider 08/08/19 07/06/23 Jessie Smith, RN [address] [place] [address] iCMP Painter Set 12/12/22 01/24/23 documented as of this encounter Additional Source Comments The information contained in this document represents components of the legal health record. It is not the complete legal health record.[facility]
--- OUTSIDE RECORDS SUMMARY | 2025-08-03 14:45 | XMS_ITS | Encounter Summary ---
Author Organization [facility] Address [address] [facility] [address] [place] [address] Phone Care Team Providers Care Inking Machine Tender Name Role Phone Pardeep Du MD Primary Care Provider [phone] Pardeep Du MD Unavailable [phone] Jessie Smith RN Unavailable [phone] Delilah Cervantes DO Primary Care Provider Kirstin Reyes Primary Care Provide r Encounter Details Date Type Department Care Team (Late st Contact Info) Description 05/10/2020 Procedure Pass [facility], [address] [place] [address] Social History Tobacco Use Types Packs/Day Years [...] documented as of this encounter Care Teams Inking Machine Tender Relationship Specialty Start Date End Date Pardeep Du MD [address] [place] [address], [address] [place] [address] francisco PCP - General Internal Medicine 04/01/19 05/18/24 Delilah Cervantes DO [address] [place] [address] PCP - General Family Medicine 05/19/24 05/02/25 Kirstin Reyes PA [address] [place] [address] [place] [address] PCP - General Physician Expediter 05/03/25 Pardeep Du MD [address] [place] [address], [address] [place] [address] francisco [email or web address] Insurance Assigned Provider 08/08/19 07/06/23 Jessie Smith, RN [address] [place] [address] iCMP Cryogenics Engineer 12/12/22 01/24/23 documented as of this encounter Additional Source Comments The information contained in this document represents components of the legal health record. It is not the complete legal health record.[facility]
--- OUTSIDE RECORDS SUMMARY | 2025-08-03 14:45 | XMS_ITS | Encounter Summary ---
Author Organization [facility] Address [address] [facility] [address] [place] [address] Phone Care Team Providers Care Real Estate Loan Processor Name Role Phone Helen Delilah Primary Care Provider [phone] Kirstin Reyes Primary Care Provide r Encounter Details Date Type Department Care Team (Latest Contact Info) Description 08/06/2024 Transcribe Orders Virtual Department 30 [place] [address] Gilda Carranza PA-C [address] [place] [address] [email or web address] Lesion of ovary (Primary Dx) Social History [...] documented as of this encounter Care Teams Real Estate Loan Processor Relationship Specialty Start Date End Date Delilah Cervantes DO [address] [place] [address] [place] [address] PCP - General Family Medicine 05/19/24 05/02/25 Kirstin Reyes PA [address] [place] [address] [place] [address] PCP - General Physician Interrelated Special Education Teacher 05/03/25 documented as of this encounter Additional Source Comments The information contained in this document represents components of the legal health record. It is not the complete legal health record.[facility]
--- OUTSIDE RECORDS SUMMARY | 2025-08-03 14:45 | XMS_ITS | Encounter Summary ---
Author Organization [facility] Address [address] [facility] [address] [place] [address] Phone Care Team Providers Care Inspector And Sorter Name Role Phone Pardeep Du MD Primary Care Provider [phone] Pardeep Du MD Unavailable [phone] Jessie Smith RN Unavailable [phone] Delilah Cervantes DO Primary Care Provider Kirstin Reyes Primary Care Provide r Encounter Details Date Type Department Care Team (Late st Contact Info) Description 09/16/2019 Ancillary Orders [facility],Outside Imaging 30 [place], [place] [phone] System, Provider Not In, PhD Partners [address] [address] Social History Tobacco Use Types Packs/Day Years [...] documented as of this encounter Care Teams Inspector And Sorter Relationship Specialty Start Date End Date Pardeep Du MD [address] [place] [address], [address] [place] [address] francisco PCP - General Internal Medicine 04/01/19 05/18/24 Delilah Cervantes DO [address] [place] [address] PCP - General Family Medicine 05/19/24 05/02/25 Kirstin Reyes PA [address] [place] [address] [place] [address] PCP - General Physician Pump Station Operator 05/03/25 Pardeep Du MD [address] [place] [address] francisco Insurance Assigned Provider 08/08/19 07/06/23 Jessie Smith, RN [address] [place] [address] iCMP Spinner Fixer 12/12/22 01/24/23 documented as of this encounter Additional Source Comments The information contained in this document represents components of the legal health record. It is not the complete legal health record.[facility]
--- OUTSIDE RECORDS SUMMARY | 2025-08-03 14:45 | XMS_ITS | Encounter Summary ---
Author Organization [facility] Address [address] [facility] [address] [place] [address] Phone Care Team Providers Care Canvas Goods Fabricator Name Role Phone Pardeep Du MD Primary Care Provider Pardeep Du MD Unavailable [phone] Delilah Cervantes DO Primary Care Provider Kirstin Reyes Primary Care Provide r Encounter Details Date Type Department Care Team (Late st Contact Info) Description 05/06/2023 Ancillary Orders [facility] [address] [place] [address] [place] [address] Pardeep Du MD [address] [facility], 2nd [place] [address] francisco [email or web address] Abnormal finding on mammography Social History Tobacco [...] documented as of this encounter Care Teams Canvas Goods Fabricator Relationship Specialty Start Date End Date Pardeep Du MD [address] [place] [address], 2nd [place] [address] francisco PCP - General Internal Medicine 04/01/19 05/18/24 Delilah Cervantes DO [address] [place] [address] PCP - General Family Medicine 05/19/24 05/02/25 Kirstin Reyes PA [address] [place] [address] [place] [address] PCP - General Physician Desk Interviewer 05/03/25 Pardeep Du MD [address] [place] [address], 2nd [place] [address] francisco [email or web address] Insurance Assigned Provider 08/08/19 07/06/23 documented as of this encounter Additional Source Comments The information contained in this document represents components of the legal health record. It is not the complete legal health record.[facility]
== END 2025-08-03 12:17 | disposition home or self-care (01) ==
LOC: HO.PMCPRC 11:39
PROVIDERS: Visit Provider Anesthesiology
DX: M17.12 Unilateral primary osteoarthritis, left knee (principal); M25.562 Pain in left knee
CPT/HCPCS: 20610; 77002

== ENCOUNTER 2025-08-12 11:07 | Outpatient (REF) | payer OTHER, SELFPAY ==
[2025-08-12 13:11] LABS: Free T4 (Free Thyroxine) 0.70 ng/dL (0.71-1.85); Thyroid Stimulating Hormone 10.65 uIU/mL (0.32-4.0)
--- OUTSIDE RECORDS SUMMARY | 2025-08-12 14:13 | XMS_ITS | Encounter Summary ---
Author Organization [facility] Address [address] [facility] [address] [place] [address] Phone Care Team Providers Care Hosiery Bagger Name Role Phone Pardeep Du MD Primary Care Provider [phone] Pardeep Du MD Unavailable [phone] Jessie Smith RN Unavailable [phone] Delilah Cervantes DO Primary Care Provider [phone] Kirstin Reyes Primary Care Provide r Encounter Details Date Type Department Care Team (Late st Contact Info) Description 09/16/2019 Ancillary Orders [facility],Outside Imaging 30 [place], [place] [phone] System, Provider Not In, PhD Partners [address] [address] Social History Tobacco Use Types Packs/Day Years [...] documented as of this encounter Care Teams Hosiery Bagger Relationship Specialty Start Date End Date Pardeep Du MD [address] [place] [address], [address] [place] [address] francisco PCP - General Internal Medicine 04/01/19 05/18/24 Delilah Cervantes DO [address] [place] [address] PCP - General Family Medicine 05/19/24 05/02/25 Kirstin Reyes PA [address] [place] [address] [place] [address] PCP - General Physician Test Fixture Assembler 05/03/25 Pardeep Du MD [address] [place] [address] francisco Insurance Assigned Provider 08/08/19 07/06/23 Jessie Smith, RN [address] [place] [address] PHCM Regulatory Consultant 12/12/22 01/24/23 documented as of this encounter Additional Source Comments The information contained in this document represents components of the legal health record. It is not the complete legal health record.[facility]
--- OUTSIDE RECORDS SUMMARY | 2025-08-12 14:13 | XMS_ITS | Encounter Summary ---
Author Organization [facility] Address [address] [facility] [address] [place] [address] Phone Care Team Providers Care Lowerator Operator Name Role Phone Pardeep Du MD Primary Care Provider [phone] Pardeep Du MD Unavailable [phone] Jessie Smith RN Unavailable [phone] Delilah Cervantes DO Primary Care Provider [phone] Kirstin Reyes Primary Care Provide r Encounter Details Date Type Department Care Team (Late st Contact Info) Description 10/18/2020 Procedure Pass [facility] - [address] [place] [address] Social History Tobacco Use Types Packs/Day Years [...] documented as of this encounter Care Teams Lowerator Operator Relationship Specialty Start Date End Date Pardeep Du MD [address] [place] [address], 2nd [place] [address] francisco PCP - General Internal Medicine 04/01/19 05/18/24 Delilah Cervantes DO [address] [place] [address] PCP - General Family Medicine 05/19/24 05/02/25 Kirstin Reyes PA [address] [place] [address] [place] [address] PCP - General Physician Vp Corporate Development 05/03/25 Pardeep Du MD [address] [place] [address], 2nd [place] [address] francisco [email or web address] Insurance Assigned Provider 08/08/19 07/06/23 Jessie Smith, RN [address] [place] [address] [email or web address] PHCM Coremaking Supervisor 12/12/22 01/24/23 documented as of this encounter Additional Source Comments The information contained in this document represents components of the legal health record. It is not the complete legal health record.[facility]
--- OUTSIDE RECORDS SUMMARY | 2025-08-12 14:13 | XMS_ITS | Encounter Summary ---
Author Organization [facility] Address [address] [facility] [address] [place] [address] Phone Care Team Providers Care Utility Worker Film Processing Name Role Phone Kirstin Reyes Primary Care Provide r Encounter Details Date Type Department Care Team (Late st Contact Info) Description 05/03/2025 Procedure Pass [facility] Endoscopy Admitting Dept Virtual Department 30 [place] [address] Social History Tobacco Use Types Packs/Day Years [...] documented as of this encounter Care Teams Utility Worker Film Processing Relationship Specialty Start Date End Date Kirstin Reyes PA [address] [place] [address] [place] [address] PCP - General Physician E Commerce Strategist 05/03/25 documented as of this encounter Additional Source Comments The information contained in this document represents components of the legal health record. It is not the complete legal health record.[facility]
--- OUTSIDE RECORDS SUMMARY | 2025-08-12 14:13 | XMS_ITS | Encounter Summary ---
Author Organization [facility] Address [address] [facility] [address] [place] [address] Phone Care Team Providers Care Police Matron Name Role Phone Pardeep Du MD Primary Care Provider [phone] Pardeep Du MD Unavailable [phone] Jessie Smith RN Unavailable [phone] Delilah Cervantes DO Primary Care Provider Kirstin Reyes Primary Care Provide r Encounter Details Date Type Department Care Team (Late st Contact Info) Description 09/16/2019 Ancillary Orders [facility],Outside Imaging 30 [place], [place] [phone] System, Provider Not In, PhD Partners [address] [address] Social History Tobacco Use Types Packs/Day Years [...] documented as of this encounter Care Teams Police Matron Relationship Specialty Start Date End Date Pardeep Du MD [address] [place] [address], [address] [place] [address] francisco PCP - General Internal Medicine 04/01/19 05/18/24 Delilah Cervantes DO [address] [place] [address] PCP - General Family Medicine 05/19/24 05/02/25 Kirstin Reyes PA [address] [place] [address] [place] [address] PCP - General Physician Lumber Piler 05/03/25 Pardeep Du MD [address] [place] [address] francisco Insurance Assigned Provider 08/08/19 07/06/23 Jessie Smith, RN [address] [place] [address] PHCM Clinical Courier 12/12/22 01/24/23 documented as of this encounter Additional Source Comments The information contained in this document represents components of the legal health record. It is not the complete legal health record.[facility]
--- OUTSIDE RECORDS SUMMARY | 2025-08-12 14:13 | XMS_ITS | Encounter Summary ---
Author Organization [facility] Address [address] [facility] [address] [place] [address] Phone Care Team Providers Care Environmental Program Manager Name Role Phone Pardeep Du MD Primary Care Provider Pardeep Du MD Unavailable [phone] Jessie Smith RN Unavailable [phone] Delilah Cervantes DO Primary Care Provider Kirstin Reyes Primary Care Provide r Encounter Details Date Type Department Care Team (Late st Contact Info) Description 10/18/2020 Procedure Pass [facility] - [address] [place] [address] Social History Tobacco Use Types Packs/Day Years [...] education for yourself related to: Learning the [place] language? Completing high school, earning a high [...] documented as of this encounter Care Teams Environmental Program Manager Relationship Specialty Start Date End Date Pardeep Du MD [address] [place] [address], 2nd [place] [address] francisco PCP - General Internal Medicine 04/01/19 05/18/24 Delilah Cervantes DO [address] [place] [address] PCP - General Family Medicine 05/19/24 05/02/25 Kirstin Reyes PA [address] [place] [address] [place] [address] PCP - General Physician Recreation Establishment Manager 05/03/25 Pardeep Du MD [address] [place] [address], 2nd [place] [address] francisco [email or web address] Insurance Assigned Provider 08/08/19 07/06/23 Jessie Smith, RN [address] [place] [address] [email or web address] PHCM Hadoop Admin 12/12/22 01/24/23 documented as of this encounter Additional Source Comments The information contained in this document represents components of the legal health record. It is not the complete legal health record.[facility]
--- OUTSIDE RECORDS SUMMARY | 2025-08-12 14:13 | XMS_ITS | Encounter Summary ---
Author Organization [facility] Address [address] [facility] [address] [place] [address] Phone Care Team Providers Care Engineering Supervisor Name Role Phone Pardeep Du MD Primary Care Provider Pardeep Du MD Unavailable Jessie Smith RN Unavailable Delilah Cervantes DO Primary Care Provider Kirstin Reyes Primary Care Provide r Encounter Details Date Type Department Care Team (Late st Contact Info) Description 05/04/2019 Ancillary Orders [facility] [address] [place] [address] [place] [address] Andrew Alberto MD [address] [place] [address] [facility] [place]PA SPANN [address] [email or web address] Pain in both knees, unspecified [...] to medium sized joint effusion. POS - [id number] Narrative 05/04/2019 1:28 PM EDT Left knee [...] to medium sized joint effusion. POS - [id number] Andrew Alberto MD IMG XR LOWER EXTREMITY F inal Result * XR KNEE 4 OR MORE VIEWS (RIGHT) (05/04/2019 1:07 PM EDT) Anatomical Region Laterality Modality Knee Right Radiographic Jesika ging 05/04/2019 1:27 PM EDT Impressions 05/04/2019 1:28 PM EDT Moderate medial compartment osteoarthritis. No erosive changes or bony lesion seen. Prominent joint effusion. POS - [id number] Narrative 05/04/2019 1:28 PM EDT Right knee [...] bonylesion seen. Prominent joint effusion. POS - [id number] Andrew Alberto MD IMG XR LOWER EXTREMITY [...] as of this encounter Care Teams Engineering Supervisor Relationship Specialty Start Date End Date Pardeep Du MD [address] [place] [address], [address] [place] [address] francisco PCP - General Internal Medicine 04/01/19 05/18/24 Delilah Cervantes DO [address] [place] [address] PCP - General Family Medicine 05/19/24 05/02/25 Kirstin Reyes PA [address] [place] [address] PCP - General Physician Retail Asset Protection Specialist 05/03/25 Pardeep Du MD [address] [place] [address], [address] [place] [address] francisco Insurance Assigned Provider 08/08/19 07/06/23 Jessie Smith, RN [address] [place] [address] PHCM Vegetable Inspector 12/12/22 01/24/23 documented as of this encounter Additional Source Comments The information contained in this document represents components of the legal health record. It is not the complete legal health record.[facility]
--- OUTSIDE RECORDS SUMMARY | 2025-08-12 14:13 | XMS_ITS | Encounter Summary ---
Author Organization [facility] Address [address] [place] [address] Phone Care Team Providers Care Concrete Finishing Machine Operator Name Role Phone Pardeep Du MD Primary Care Provider [phone]- [phone] Pardeep Du MD Unavailable [phone] Jessie Smith RN Unavailable [phone] Delilah Cervantes DO Primary Care Provider Kirstin Reyes Primary Care Provide r Encounter Details Date Type Department Care Team (Late st Contact Info) Description 09/16/2019 Ancillary Orders [facility],Outside Imaging 30 [place], [place] [id number] System, Provider Not In, [facility] [address] [address] Social History Tobacco Use Types Packs/Day Years [...] as of this encounter Care Teams Concrete Finishing Machine Operator Relationship Specialty Start Date End Date Pardeep Du MD [address] [place] [address], [address] [place] [address] francisco PCP - General Internal Medicine 04/01/19 05/18/24 Delilah Cervantes DO [address] [place] [address] PCP - General Family Medicine 05/19/24 05/02/25 Kirstin Reyes PA [address] [place] [address] [place] [address] PCP - General Physician Speech Therapist 05/03/25 Pardeep Du MD [address] [place] [address] francisco Insurance Assigned Provider 08/08/19 07/06/23 Jessie Smith, RN [address] [place] [address] PHCM Visitor Services Specialist 12/12/22 01/24/23 documented as of this encounter Additional Source Comments The information contained in this document represents components of the legal health record. It is not the complete legal health record.[facility]
--- OUTSIDE RECORDS SUMMARY | 2025-08-12 14:13 | XMS_ITS | Encounter Summary ---
Author Organization [facility] Address [address] [facility] [address] [place] [address] Phone Care Team Providers Care Gas Engine Operator Name Role Phone Pardeep Du MD Primary Care Provider [phone]- [phone] Pardeep Du MD Unavailable [phone] Jessie Smith RN Unavailable [phone] Delilah Cervantes DO Primary Care Provider Kirstin Reyes Primary Care Provide r Encounter Details Date Type Department Care Team (Late st Contact Info) Description 12/17/2022 Procedure Pass [facility], [address] [place] [address] Social History Tobacco Use Types Packs/Day Years [...] education for yourself related to: Learning the Kuwaiti language? Completing high school, earning a high [...] documented as of this encounter Care Teams Gas Engine Operator Relationship Specialty Start Date End Date Pardeep Du MD [address] [place] [address], 2nd [place] [address] francisco PCP - General Internal Medicine 04/01/19 05/18/24 Delilah Cervantes DO [address] [place] [address] PCP - General Family Medicine 05/19/24 05/02/25 Kirstin Reyes PA [address] [place] [address] [place] [address] PCP - General Physician Paste Mixing Supervisor 05/03/25 Pardeep Du MD [address] [place] [address], 2nd [place] [address] francisco [email or web address] Insurance Assigned Provider 08/08/19 07/06/23 Jessie Smith, RN [address] [place] [address] [email or web address] PHCM Tie Carrier 12/12/22 01/24/23 documented as of this encounter Additional Source Comments The information contained in this document represents components of the legal health record. It is not the complete legal health record.[facility]
--- OUTSIDE RECORDS SUMMARY | 2025-08-12 14:13 | XMS_ITS | Encounter Summary ---
Author Organization [facility] Address [address] [facility] [address] [place] [address] Phone Care Team Providers Care Account Development Associate Name Role Phone Pardeep Du MD Primary Care Provider [phone]- [phone] Pardeep Du MD Unavailable [phone] Jessie Smith RN Unavailable [phone] Delilah Cervantes DO Primary Care Provider [phone] Kirstin Reyes Primary Care Provide r Encounter Details Date Type Department Care Team (Late st Contact Info) Description 09/16/2019 Ancillary Orders [facility],Outside Imaging 30 [place], [place] [phone] System, Provider Not In, [facility] [address] [address] Social History Tobacco Use Types Packs/Day Years [...] education for yourself related to: Learning the Argentine language? Completing high school, earning a high [...] documented as of this encounter Care Teams Account Development Associate Relationship Specialty Start Date End Date Pardeep Du MD [address] [place] [address], [address] [place] [address] francisco PCP - General Internal Medicine 04/01/19 05/18/24 Delilah Cervantes DO [address] [place] [address] PCP - General Family Medicine 05/19/24 05/02/25 Kirstin Reyes PA [address] [place] [address] [place] [address] PCP - General Physician Production Control Manager 05/03/25 Pardeep Du MD [address] [place] [address] francisco Insurance Assigned Provider 08/08/19 07/06/23 Jessie Smith, RN [address] [place] [address] PHCM Chargeback Specialist 12/12/22 01/24/23 documented as of this encounter Additional Source Comments The information contained in this document represents components of the legal health record. It is not the complete legal health record.[facility]
--- OUTSIDE RECORDS SUMMARY | 2025-08-12 14:14 | XMS_ITS | Encounter Summary ---
Author Organization [facility] Address [address] [facility] [address] [place] [address] Phone Care Team Providers Care Commercial Real Estate Assistant Name Role Phone Pardeep Du MD Primary Care Provider [phone]- [phone] Pardeep Du MD Unavailable [phone] Jessie Smith RN Unavailable [phone] Delilah Cervantes DO Primary Care Provider [phone] Kirstin Reyes Primary Care Provide r Encounter Details Date Type Department Care Team (Late st Contact Info) Description 02/28/2022 Procedure Pass [facility] - [address] [place] [address] Social History Tobacco Use Types Packs/Day Years [...] documented as of this encounter Care Teams Commercial Real Estate Assistant Relationship Specialty Start Date End Date Pardeep Du MD [address] [place] [address], 2nd [place] [address] francisco PCP - General Internal Medicine 04/01/19 05/18/24 Delilah Cervantes DO [address] [place] [address] PCP - General Family Medicine 05/19/24 05/02/25 Kirstin Reyes PA [address] [place] [address] [place] [address] PCP - General Physician Blindmaker 05/03/25 Pardeep Du MD [address] [place] [address], 2nd [place] [address] francisco [email or web address] Insurance Assigned Provider 08/08/19 07/06/23 Jessie Smith, RN [address] [place] [address] [email or web address] PHCM Shoe Planner 12/12/22 01/24/23 documented as of this encounter Additional Source Comments The information contained in this document represents components of the legal health record. It is not the complete legal health record.[facility]
--- OUTSIDE RECORDS SUMMARY | 2025-08-12 14:14 | XMS_ITS | Encounter Summary ---
Author Organization [facility] Address [address] [facility] [address] [place] [address] Phone Care Team Providers Care Patient Insurance Clerk Name Role Phone Pardeep Du MD Primary Care Provider [phone] Pardeep Du MD Unavailable [phone] Jessie Smith RN Unavailable [phone] Delilah Cervantes DO Primary Care Provider Kirstin Reyes Primary Care Provide r Encounter Details Date Type Department Care Team (Late st Contact Info) Description 06/30/2019 Procedure Pass [facility], [address] [place] [address] Social History Tobacco Use Types Packs/Day Years [...] education for yourself related to: Learning the Latvian language? Completing high school, earning a high [...] as of this encounter Care Teams Patient Insurance Clerk Relationship Specialty Start Date End Date Pardeep Du MD [address] [place] [address], 2nd [place] [address] [email or web address] PCP - General Internal Medicine 04/01/19 05/18/24 Delilah Cervantes DO [address] [place] [address] PCP - General Family Medicine 05/19/24 05/02/25 Kirstin Reyes PA [address] [place] [address] [place] [address] PCP - General Physician Production Planner Scheduler 05/03/25 Pardeep Du MD [address] [place] [address], 2nd [place] [address] francisco [email or web address] Insurance Assigned Provider 08/08/19 07/06/23 Jessie Smith, RN [address] [place] [address] [email or web address] PHCM Spudder 12/12/22 01/24/23 documented as of this encounter Additional Source Comments The information contained in this document represents components of the legal health record. It is not the complete legal health record.[facility]
--- OUTSIDE RECORDS SUMMARY | 2025-08-12 14:14 | XMS_ITS | Encounter Summary ---
Author Organization [facility] Address [address] [facility] [address] [place] [address] Phone Care Team Providers Care Food Processing Plant Manager Name Role Phone Pardeep Du MD Primary Care Provider Pardeep Du MD Unavailable Jessie Smith RN Unavailable Delilah Cervantes DO Primary Care Provider Kirstin Reyes Primary Care Provide r Encounter Details Date Type Department Care Team (Late st Contact Info) Description 09/13/2021 Transcribe Orders Virtual Department 30 [place] [address] Pardeep Du MD [address] [facility], 2nd [place] [address] francisco [email or web address] Social History Tobacco Use Types Packs/Day Years [...] documented as of this encounter Care Teams Food Processing Plant Manager Relationship Specialty Start Date End Date Pardeep Du MD [address] [place] [address], 2nd [place] [address] francisco PCP - General Internal Medicine 04/01/19 05/18/24 Delilah Cervantes DO [address] [place] [address] PCP - General Family Medicine 05/19/24 05/02/25 Kirstin Reyes PA [address] [place] [address] PCP - General Physician Juvenile Corrections Officer 05/03/25 Pardeep Du MD [address] [place] [address], 2nd [place] [address] francisco Insurance Assigned Provider 08/08/19 07/06/23 Jessie Smith, RN [address] [place] [address] [email or web address] PHCM Bottom Painter 12/12/22 01/24/23 documented as of this encounter Additional Source Comments The information contained in this document represents components of the legal health record. It is not the complete legal health record.[facility]
--- OUTSIDE RECORDS SUMMARY | 2025-08-12 14:14 | XMS_ITS | Encounter Summary ---
Author Organization [facility] Address [address] [facility] [address] [place] [address] Phone Care Team Providers Care Photoflash Powder Mixer Name Role Phone Pardeep Du MD Primary Care Provider Pardeep Du MD Unavailable [phone] Jessie Smith RN Unavailable [phone] Delilah Cervantes DO Primary Care Provider Kirstin Reyes Primary Care Provide r Encounter Details Date Type Department Care Team (Late st Contact Info) Description 04/06/2022 Procedure Pass [facility] Admitting Dept Virtual Department 30 [place], [place] [id number] Social History Tobacco Use Types Packs/Day Years [...] documented as of this encounter Care Teams Photoflash Powder Mixer Relationship Specialty Start Date End Date Pardeep Du MD [address] [place] [address], 2nd [place] [address] francisco PCP - General Internal Medicine 04/01/19 05/18/24 Delilah Cervantes DO [address] [place] [address] PCP - General Family Medicine 05/19/24 05/02/25 Kirstin Reyes PA [address] [place] [address] [place] [address] PCP - General Physician Film Spooler 05/03/25 Pardeep Du MD [address] [place] [address], 2nd [place] [address] francisco [email or web address] Insurance Assigned Provider 08/08/19 07/06/23 Jessie Smith, RN [address] [place] [address] [email or web address] PHCM Reservoir Engineering Manager 12/12/22 01/24/23 documented as of this encounter Additional Source Comments The information contained in this document represents components of the legal health record. It is not the complete legal health record.[facility]
--- OUTSIDE RECORDS SUMMARY | 2025-08-12 14:14 | XMS_ITS | Encounter Summary ---
Author Organization [facility] Address [address] [facility] [address] [place] [address] Phone Care Team Providers Care Longshore Equipment Operator Name Role Phone Pardeep Du MD Primary Care Provider [phone] Pardeep Du MD Unavailable [phone] Jessie Smith RN Unavailable [phone] Delilah Cervantes DO Primary Care Provider [phone] Kirstin Reyes Primary Care Provide r Encounter Details Date Type Department Care Team (Late st Contact Info) Description 02/28/2022 Procedure Pass [facility] - [address] [place] [address] Social History Tobacco Use Types Packs/Day Years [...] education for yourself related to: Learning the Barbadian language? Completing high school, earning a high [...] documented as of this encounter Care Teams Longshore Equipment Operator Relationship Specialty Start Date End Date Pardeep Du MD [address] [place] [address], 2nd [place] [address] francisco PCP - General Internal Medicine 04/01/19 05/18/24 Delilah Cervantes DO [address] [place] [address] PCP - General Family Medicine 05/19/24 05/02/25 Kirstin Reyes PA NPI: [id number] [place] [address] [place] [address] PCP - General Physician City Director 05/03/25 Pardeep Du MD [address] [place] [address], 2nd [place] [address] francisco [email or web address] Insurance Assigned Provider 08/08/19 07/06/23 Jessie Smith, RN [address] [place] [address] [email or web address] PHCM Driver Starting Gate 12/12/22 01/24/23 documented as of this encounter Additional Source Comments The information contained in this document represents components of the legal health record. It is not the complete legal health record.[facility]
--- OUTSIDE RECORDS SUMMARY | 2025-08-12 14:14 | XMS_ITS | Encounter Summary ---
Author Organization [facility] Address [address] [facility] [address] [place] [address] Phone Care Team Providers Care Refrigerator Glazier Name Role Phone Pardeep Du MD Primary Care Provider [phone]- [phone] Pardeep Du MD Unavailable [phone] Jessie Smith RN Unavailable [phone] Delilah Cervantes DO Primary Care Provider Kirstin Reyes Primary Care Provide r Encounter Details Date Type Department Care Team (Late st Contact Info) Description 09/16/2019 Ancillary Orders [facility],Outside Imaging 30 [place], [place] [phone] System, Provider Not In, [facility] [address] [address] Social History Tobacco Use Types Packs/Day Years [...] education for yourself related to: Learning the Cambodian language? Completing high school, earning a high [...] documented as of this encounter Care Teams Refrigerator Glazier Relationship Specialty Start Date End Date Pardeep Du MD [address] [place] [address], [address] [place] [address] francisco PCP - General Internal Medicine 04/01/19 05/18/24 Delilah Cervantes DO [address] [place] [address] PCP - General Family Medicine 05/19/24 05/02/25 Kirstin Reyes PA [address] [place] [address] [place] [address] PCP - General Physician Meter Repairer 05/03/25 Pardeep Du MD [address] [place] [address] francisco Insurance Assigned Provider 08/08/19 07/06/23 Jessie Smith, RN [address] [place] [address] PHCM Spot Man 12/12/22 01/24/23 documented as of this encounter Additional Source Comments The information contained in this document represents components of the legal health record. It is not the complete legal health record.[facility]
--- OUTSIDE RECORDS SUMMARY | 2025-08-12 14:14 | XMS_ITS | Encounter Summary ---
Author Organization [facility] Address [address] [facility] [address] [place] [address] Phone Care Team Providers Care Pancake Professional Name Role Phone Pardeep Du MD Primary Care Provider [phone] Pardeep Du MD Unavailable [phone] Jessie Smith RN Unavailable [phone] Delilah Cervantes DO Primary Care Provider Kirstin Reyes Primary Care Provide r Encounter Details Date Type Department Care Team (Late st Contact Info) Description 12/09/2022 Procedure Pass [facility] 30 [place] [address] Social History Tobacco Use Types Packs/Day Years [...] documented as of this encounter Care Teams Pancake Professional Relationship Specialty Start Date End Date Pardeep Du MD [address] [place] [address], 2nd [place] [address] francisco PCP - General Internal Medicine 04/01/19 05/18/24 Delilah Cervantes DO [address] [place] [address] PCP - General Family Medicine 05/19/24 05/02/25 Kirstin Reyes PA [address] [place] [address] [place] [address] PCP - General Physician Professor Of Biology 05/03/25 Pardeep Du MD [address] [place] [address], 2nd [place] [address] francisco [email or web address] Insurance Assigned Provider 08/08/19 07/06/23 Jessie Smith, RN [address] [place] [address] [email or web address] PHCM [email or web address] Developer 12/12/22 01/24/23 documented as of this encounter Additional Source Comments The information contained in this document represents components of the legal health record. It is not the complete legal health record.[facility]
--- OUTSIDE RECORDS SUMMARY | 2025-08-12 14:14 | XMS_ITS | Encounter Summary ---
Author Organization [facility] Address [address] [facility] [address] [place] [address] Phone Care Team Providers Care Operating Room Manager Name Role Phone Pardeep Du MD Primary Care Provider [phone]- [phone] Pardeep Du MD Unavailable [phone] Jessie Smith RN Unavailable [phone] Delilah Cervantes DO Primary Care Provider [phone] Kirstin Reyes Primary Care Provide r Encounter Details Date Type Department Care Team (Late st Contact Info) Description 05/10/2020 Procedure Pass [facility], [address] [place] [address] Social History Tobacco Use Types Packs/Day Years [...] education for yourself related to: Learning the Zambian language? Completing high school, earning a high [...] documented as of this encounter Care Teams Operating Room Manager Relationship Specialty Start Date End Date Pardeep Du MD [address] [place] [address], [address] [place] [address] francisco PCP - General Internal Medicine 04/01/19 05/18/24 Delilah Cervantes DO [address] [place] [address] PCP - General Family Medicine 05/19/24 05/02/25 Kirstin Reyes PA [address] [place] [address] [place] [address] PCP - General Physician Chiller Hand 05/03/25 Pardeep Du MD [address] [place] [address], [address] [place] [address] francisco [email or web address] Insurance Assigned Provider 08/08/19 07/06/23 Jessie Smith, RN [address] [place] [address] PHCM Mobile Marketing Specialist 12/12/22 01/24/23 documented as of this encounter Additional Source Comments The information contained in this document represents components of the legal health record. It is not the complete legal health record.[facility]
--- OUTSIDE RECORDS SUMMARY | 2025-08-12 14:14 | XMS_ITS | Encounter Summary ---
Author Organization [facility] Address [address] [place] [address] Phone Care Team Providers Care Scientist Electronics Name Role Phone Pardeep Du MD Primary Care Provider Pardeep Du MD Unavailable [phone] Jessie Smith RN Unavailable Delilah Cervantes DO Primary Care Provider Kirstin Reyes Primary Care Provide r Encounter Details Date Type Department Care Team (Late st Contact Info) Description 03/05/2022 Procedure Pass [facility], Ct Scan - [address] [address] Social History Tobacco Use Types Packs/Day Years [...] education for yourself related to: Learning the Amharic language? Completing high school, earning a high [...] 1:02 PM EDT Drake Cha, MEGHAN * [place] Suicide Severity Rating Scale (Screener/Recent Self-Report) Question [...] documented as of this encounter Care Teams Scientist Electronics Relationship Specialty Start Date End Date Pardeep Du MD [address] [place] [address], [address] [place] [address] francisco PCP - General Internal Medicine 04/01/19 05/18/24 Delilah Cervantes DO [address] [place] [address] PCP - General Family Medicine 05/19/24 05/02/25 Kirstin Reyes PA [address] [place] [address] PCP - General Physician Photoengraving Proofer 05/03/25 Pardeep Du MD [address] [place] [address], [address] [place] [address] francisco [email or web address] Insurance Assigned Provider 08/08/19 07/06/23 Jessie Smith, RN [address] [place] [address] PHCM Machine Cloth Measurer 12/12/22 01/24/23 documented as of this encounter Additional Source Comments The information contained in this document represents components of the legal health record. It is not the complete legal health record.[facility]
--- OUTSIDE RECORDS SUMMARY | 2025-08-12 14:14 | XMS_ITS | Encounter Summary ---
Author Organization [facility] Address [address] [facility] [address] [place] [address] Phone Care Team Providers Care Disk Recordist Name Role Phone Pardeep Du MD Primary Care Provider Pardeep Du MD Unavailable [phone] Jessie Smith RN Unavailable Delilah Cervantes DO Primary Care Provider Kirstin Reyes Primary Care Provide r Encounter Details Date Type Department Care Team (Late st Contact Info) Description 07/23/2019 Ancillary Orders Non-Invasive Cardiology 30 [place] [address] Pardeep Du MD [address] [facility], 2nd [place] [address] francisco [email or web address] Chest pain, unspecified type Social [...] AM EDT) Max BP Systolic 130 mmHg [facility] Max BP Diastolic 70 mmHg [facility] Max HR 88 BPM [facility] Resting HR 57 BPM [facility] Resting BP Systolic 126 mmHg [facility] Resting BP Diastolic 78 mmHg [facility] Peak METS 1.0 METS [facility] Peak HR 87 BPM [facility] Anatomical Region Laterality Modality Heart Other [...] documented as of this encounter Care Teams Disk Recordist Relationship Specialty Start Date End Date Pardeep Du MD [address] [place] [address], 2nd [place] [address] francisco [email or web address] PCP - General Internal Medicine 04/01/19 05/18/24 Delilah Cervantes DO [address] [place] [address] PCP - General Family Medicine 05/19/24 05/02/25 Kirstin Reyes PA [address] [place] [address] PCP - General Physician Net Web Application Developer 05/03/25 Pardeep Du MD [address] [place] [address], 2nd [place] [address] francisco Insurance Assigned Provider 08/08/19 07/06/23 Jessie Smith, RN [address] [place] [address] PHCM 1St [employer] 12/12/22 01/24/23 documented as of this encounter Additional Source Comments The information contained in this document represents components of the legal health record. It is not the complete legal health record.[facility]
--- OUTSIDE RECORDS SUMMARY | 2025-08-12 14:14 | XMS_ITS | Encounter Summary ---
Author Organization [facility] Address [address] [facility] [address] [place] [address] Phone Care Team Providers Care Topographical Drafter Name Role Phone Pardeep Du MD Primary Care Provider Delilah Cervantes DO Primary Care Provider Kirstin Reyes Primary Care Provide r Encounter Details Date Type Department Care Team (Late st Contact Info) Description 11/29/2023 Procedure Pass [facility], [address] [address] Social History Tobacco Use Types Packs/Day Years [...] documented as of this encounter Care Teams Topographical Drafter Relationship Specialty Start Date End Date Pardeep Du MD [address] [place] [address], 2nd [place] [address] francisco PCP - General Internal Medicine 04/01/19 05/18/24 Delilah Cervantes DO [address] [place] [address] PCP - General Family Medicine 05/19/24 05/02/25 Kirstin Reyes PA [address] [place] [address] [place] [address] PCP - General Physician Diesel Powerplant Mechanic 05/03/25 documented as of this encounter Additional Source Comments The information contained in this document represents components of the legal health record. It is not the complete legal health record.[facility]
--- OUTSIDE RECORDS SUMMARY | 2025-08-12 14:14 | XMS_ITS | Encounter Summary ---
Author Organization [facility] Address [address] [facility] [address] [place] [address] Phone Care Team Providers Care Radiology Director Name Role Phone Pardeep Du MD Primary Care Provider [phone] Pardeep Du MD Unavailable [phone] Jessie Smith RN Unavailable [phone] Delilah Cervantes DO Primary Care Provider [phone] Kirstin Reyes Primary Care Provide r Reason [...] Expiration Date Visits Re quested Visits Authorized [id number] Closed 05/17/2020 05/17/2021 3 3 Encounter Details Date Type Department Care Team (Late st Contact Info) Description 05/10/2020 Ancillary Orders Virtual Department 30 [place] [address] Shazia Yeh NP [address] [place] [phone] [email or web address] Derangement of anterior horn of lateral [...] documented as of this encounter Care Teams Radiology Director Relationship Specialty Start Date End Date Pardeep Du MD [address] [place] [address], [address] [place] [address] francisco PCP - General Internal Medicine 04/01/19 05/18/24 Delilah Cervantes DO [address] [place] [address] [place] [address] PCP - General Family Medicine 05/19/24 05/02/25 Kirstin Reyes PA [address] [place] [address] [place] [address] PCP - General Physician Global Analytics Head 05/03/25 Pardeep Du MD [address] [place] [address], [address] [place] [address] francisco Insurance Assigned Provider 08/08/19 07/06/23 Jessie Smith, MEGHAN [address] [place] [address] [email or web address] PHCM Data Network Architect 12/12/22 01/24/23 documented as of this encounter Additional Source Comments The information contained in this document represents components of the legal health record. It is not the complete legal health record.[facility]
--- OUTSIDE RECORDS SUMMARY | 2025-08-12 14:14 | XMS_ITS | Encounter Summary ---
Author Organization [facility] Address [address] [facility] [address] [place] [address] Phone Care Team Providers Care Pathology Technician Name Role Phone Pardeep Du MD Primary Care Provider [phone] Pardeep Du MD Unavailable [phone] Jessie Smith RN Unavailable [phone] Delilah Cervantes DO Primary Care Provider Kirstin Reyes Primary Care Provide r Encounter Details Date Type Department Care Team (Late st Contact Info) Description 09/16/2019 Ancillary Orders [facility],Outside Imaging 30 [place], [place] [id number] System, Provider Not In, [facility] [address] [address] Social History Tobacco Use Types Packs/Day Years [...] documented as of this encounter Care Teams Pathology Technician Relationship Specialty Start Date End Date Pardeep Du MD [address] [place] [address], [address] [place] [address] francisco PCP - General Internal Medicine 04/01/19 05/18/24 Delilah Cervantes DO [address] [place] [address] PCP - General Family Medicine 05/19/24 05/02/25 Kirstin Reyes PA [address] [place] [address] [place] [address] PCP - General Physician Associate Spa Director 05/03/25 Pardeep Du MD [address] [place] [address] francisco Insurance Assigned Provider 08/08/19 07/06/23 Jessie Smith, RN [address] [place] [address] PHCM Mounter 12/12/22 01/24/23 documented as of this encounter Additional Source Comments The information contained in this document represents components of the legal health record. It is not the complete legal health record.[facility]
--- OUTSIDE RECORDS SUMMARY | 2025-08-12 14:14 | XMS_ITS | Clinical Summary ---
Author Organization [employer] Address [address] [facility] 7t [place] [address] Care Team Providers Care Mortgage Loan Interviewer Name Role Phone Unavailable Primary Care Provider [...] patient's age to complete this topic Insurance [facility] C[facility]
--- OUTSIDE RECORDS SUMMARY | 2025-08-12 14:14 | XMS_ITS | Encounter Summary ---
Author Organization [facility] Address [address] [facility] [address] [place] [address] Phone Care Team Providers Care Warehouse And Receiving Supervisor Name Role Phone Pardeep Du MD Primary Care Provider Pardeep Du MD Unavailable [phone] Jessie Smith RN Unavailable Delilah Cervantes DO Primary Care Provider Kirstin Reyes Primary Care Provide r Encounter Details Date Type Department Care Team (Late st Contact Info) Description 08/07/2021 Procedure Pass [facility], Ct Scan - [address] [address] Social History Tobacco Use Types Packs/Day Years [...] 7:48 PM EDT Aniyah Price RN * [place] Suicide Severity Rating Scale (Screener/Recent Self-Report) Question [...] as of this encounter Care Teams Warehouse And Receiving Supervisor Relationship Specialty Start Date End Date Pardeep Du MD [address] [place] [address] PCP - General Internal Medicine 04/01/19 05/18/24 Delilah Cervantes DO [address] [place] [address] PCP - General Family Medicine 05/19/24 05/02/25 Kirstin Reyes PA [address] [place] [address] PCP - General Physician Calender Wind Up Helper 05/03/25 Pardeep uD MD [address] [place] [address] francisco Insurance Assigned Provider 08/08/19 07/06/23 Jessie Smith, RN [address] [place] [address] [email or web address] PHC Chip Silo Tender 12/12/22 01/24/23 documented as of this encounter Additional Source Comments The information contained in this document represents components of the legal health record. It is not the complete legal health record.[facility]
--- OUTSIDE RECORDS SUMMARY | 2025-08-12 14:15 | XMS_ITS | Encounter Summary ---
Author Organization [facility] Address [address] [facility] [address] [place] [address] Phone Care Team Providers Care Bone Char Operator Name Role Phone Pardeep Du MD Primary Care Provider Pardeep Du MD Unavailable Delilah Cervantes DO Primary Care Provider [phone] Kirstin Reyes Primary Care Provide r Encounter Details Date Type Department Care Team (Late st Contact Info) Description 05/06/2023 Ancillary Orders [facility] [address] [place] [address] [place] [address] Pardeep Du MD [address] [facility], 2nd [place] [address] francisco [email or web address] Abnormal finding on mammography Social History Tobacco [...] documented as of this encounter Care Teams Bone Char Operator Relationship Specialty Start Date End Date Pardeep Du MD [address] [place] [address], 2nd [place] [address] francisco PCP - General Internal Medicine 04/01/19 05/18/24 Delilah Cervantes DO [address] [place] [address] PCP - General Family Medicine 05/19/24 05/02/25 Kirstin Reyes PA [address] [place] [address] [place] [address] PCP - General Physician Miner Placer 05/03/25 Pardeep Du MD [address] [place] [address], 2nd [place] [address] francisco [email or web address] Insurance Assigned Provider 08/08/19 07/06/23 documented as of this encounter Additional Source Comments The information contained in this document represents components of the legal health record. It is not the complete legal health record.[facility]
--- OUTSIDE RECORDS SUMMARY | 2025-08-12 14:15 | XMS_ITS | Encounter Summary ---
Author Organization [facility] Address [address] [facility] [address] [place] [address] Phone Care Team Providers Care Correctional Counselor Name Role Phone Pardeep Du MD Primary Care Provider [phone] Delilah Cervantes DO Primary Care Provider Kirstin Reyes Primary Care Provide r Encounter Details Date Type Department Care Team (Late st Contact Info) Description 04/06/2024 Procedure Pass [facility], Ct Scan - [address] [id number] Social History Tobacco Use Types Packs/Day Years [...] documented as of this encounter Care Teams Correctional Counselor Relationship Specialty Start Date End Date Pardeep Du MD [address] [place] [address], 2nd [place] [address] francisco [email or web address] PCP - General Internal Medicine 04/01/19 05/18/24 Delilah Cervantes DO [address] [place] [address] PCP - General Family Medicine 05/19/24 05/02/25 Kirstin Reyes PA [address] [place] [address] [place] [address] PCP - General Physician Child & Adolescent Psychiatrist 05/03/25 documented as of this encounter Additional Source Comments The information contained in this document represents components of the legal health record. It is not the complete legal health record.[facility]
--- OUTSIDE RECORDS SUMMARY | 2025-08-12 14:15 | XMS_ITS | Encounter Summary ---
Author Organization [facility] Address [address] [facility] [address] [place] [address] Phone Care Team Providers Care Rigger Helper Name Role Phone Pardeep Du MD Primary Care Provider Pardeep Du MD Unavailable [phone] Delilah Cervantes DO Primary Care Provider [phone] Kirstin Reyes Primary Care Provide r Encounter Details Date Type Department Care Team (Late st Contact Info) Description 04/05/2023 Procedure Pass [facility], [address] [address] Social History Tobacco Use Types Packs/Day Years [...] documented as of this encounter Care Teams Rigger Helper Relationship Specialty Start Date End Date Pardeep Du MD [address] [place] [address], 2nd [place] [address] francisco PCP - General Internal Medicine 04/01/19 05/18/24 Delilah Cervantes DO [address] [place] [address] PCP - General Family Medicine 05/19/24 05/02/25 Kirstin Reyes PA [address] [place] [address] PCP - General Physician Runner On 05/03/25 Pardeep Du MD [address] [place] [address], 2nd [place] [address] francisco [email or web address] Insurance Assigned Provider 08/08/19 07/06/23 documented as of this encounter Additional Source Comments The information contained in this document represents components of the legal health record. It is not the complete legal health record.[facility]
--- OUTSIDE RECORDS SUMMARY | 2025-08-12 14:15 | XMS_ITS | Encounter Summary ---
Author Organization [facility] Address [address] [facility] [address] [place] [address] Phone Care Team Providers Care Front Desk Admin Name Role Phone Pardeep Du MD Primary Care Provider Pardeep Du MD Unavailable [phone] Jessie Smith RN Unavailable Delilah Cervantes DO Primary Care Provider [phone] Kirstin Reyes Primary Care Provide r Encounter Details Date Type Department Care Team (Late st Contact Info) Description 10/04/2021 Procedure Pass [facility] 30 [place] [address] Social History Tobacco Use Types Packs/Day Years [...] documented as of this encounter Care Teams Front Desk Admin Relationship Specialty Start Date End Date Pardeep Du MD [address] [place] [address], 2nd [place] [address] francisco PCP - General Internal Medicine 04/01/19 05/18/24 Delilah Cervantes DO [address] [place] [address] PCP - General Family Medicine 05/19/24 05/02/25 Kirstin Reyes PA [address] [place] [address] [place] [address] PCP - General Physician Security Alarm Technician 05/03/25 Pardeep Du MD [address] [place] [address], 2nd [place] [address] francisco [email or web address] Insurance Assigned Provider 08/08/19 07/06/23 Jessie Smith, RN [address] [place] [address] [email or web address] PHCM Production Team Advisor 12/12/22 01/24/23 documented as of this encounter Additional Source Comments The information contained in this document represents components of the legal health record. It is not the complete legal health record.[facility]
--- OUTSIDE RECORDS SUMMARY | 2025-08-12 14:15 | XMS_ITS | Encounter Summary ---
Author Organization [facility] Address [address] [facility] [address] [place] [address] Phone Care Team Providers Care Information Tech Name Role Phone Helen Delilah Primary Care Provider Kirstin Reyes Primary Care Provide r Encounter Details Date Type Department Care Team (Latest Contact Info) Description 08/06/2024 Transcribe Orders Virtual Department 30 [place] [address] Gilda Carranza PA-C [address] [place] [address] [email or web address] Lesion of ovary (Primary [...] as of this encounter Care Teams Information Tech Relationship Specialty Start Date End Date Delilah Cervantes DO [address] [place] [address] [place] [address] PCP - General Family Medicine 05/19/24 05/02/25 Kirstin Reyes PA [address] [place] [address] [place] [address] PCP - General Physician Tile Edger 05/03/25 documented as of this encounter Additional Source Comments The information contained in this document represents components of the legal health record. It is not the complete legal health record.[facility]
--- OUTSIDE RECORDS SUMMARY | 2025-08-12 14:15 | XMS_ITS | Encounter Summary ---
Author Organization [facility] Address [address] [facility] [address] [place] [address] Phone Care Team Providers Care Internal Communications Intern Name Role Phone Pardeep Du MD Primary Care Provider [phone] Pardeep Du MD Unavailable [phone] Jessie Smith RN Unavailable [phone] Delilah Cervantes DO Primary Care Provider [phone] Kirstin Reyes Primary Care Provide r Encounter Details Date Type Department Care Team (Late st Contact Info) Description 06/02/2019 Procedure Pass [facility], [address] [place] [address] Social History Tobacco Use Types Packs/Day Years [...] documented as of this encounter Care Teams Internal Communications Intern Relationship Specialty Start Date End Date Pardeep Du MD [address] [place] [address], 2nd [place] [address] francisco [email or web address] PCP - General Internal Medicine 04/01/19 05/18/24 Delilah Cervantes DO [address] [place] [address] PCP - General Family Medicine 05/19/24 05/02/25 Kirstin Reyes PA [address] [place] [address] [place] [address] PCP - General Physician Podiatry Assistant 05/03/25 Pardeep Du MD [address] [place] [address], 2nd [place] [address] francisco [email or web address] Insurance Assigned Provider 08/08/19 07/06/23 Jessie Smith, RN [address] [place] [phone] [email or web address] PHCM Functional Mental Disability Teacher 12/12/22 01/24/23 documented as of this encounter Additional Source Comments The information contained in this document represents components of the legal health record. It is not the complete legal health record.[facility]
--- OUTSIDE RECORDS SUMMARY | 2025-08-12 14:15 | XMS_ITS | Encounter Summary ---
Author Organization [facility] Address [address] [facility] [address] [place] [address] Phone Care Team Providers Care Sales Marketing Manager Name Role Phone Pardeep Du MD Primary Care Provider Delilah Cervantes DO Primary Care Provider [phone] Kirstin Reyes Primary Care Provide r Reason for Referral * MRI/CAT Scan - Closed Specialty Diagnoses / Procedures Referred By Madhav carias Referred To Contact Radiology Diagnoses LLQ abdominal pain Constipation, unspecified constipation type Procedures CT Abdomen/Pelvis CHG CT SCAN,ABDOMENT AND PELVIS,W CONTRAST Gilda Carranza PA-C Phone: tel: fax: [email or web address] Referral ID Status Reason Start Date Expiration Date Visits Re quested Visits Authorized [id number] Closed 07/07/2024 09/05/2024 1 1 Encounter Details Date Type Department Care Team (Latest Contact Info) Description 04/06/2024 Transcribe Orders Virtual Department 30 [place] [address] Gilda Carranza PA-C [address] [place] [address] LLQ abdominal pain (Primary Dx); Constipation, unspecified [...] llq abdomen pain, [facility] as well as constipation [...] documented as of this encounter Care Teams Sales Marketing Manager Relationship Specialty Start Date End Date Pardeep Du MD [address] [place] [address], 2nd [place] [address] francisco [email or web address] PCP - General Internal Medicine 04/01/19 05/18/24 Delilah Cervantes DO [address] [place] [address] PCP - General Family Medicine 05/19/24 05/02/25 Kirstin Reyes PA [address] [place] [address] [place] [address] PCP - General Physician Systems Integration Manager 05/03/25 documented as of this encounter Additional Source Comments The information contained in this document represents components of the legal health record. It is not the complete legal health record.[facility]
--- OUTSIDE RECORDS SUMMARY | 2025-08-12 14:16 | XMS_ITS | Clinical Summary ---
Author Organization [facility] Address [address] [place] [address] Phone Care Team Providers Care Farmworker Livestock Name Role Phone Kirstin Reyes Primary Care [...] would like to switch her doctors to [facility]. Referral placed. Assessment & Plan (12/30/2023 12:22 [...] 4:55 PM EST): This is a 52-year-old Libyan-speaking woman who I saw using a clockmaker today who has lost about 7 and [...] 12:16 PM EST): This is a 52-year-old Libyan-speaking woman who started the program at [facility] and did not lose very much weight on the program. The patient is now restarting the program at [facility] in an effort to undergo laparoscopic [...] protein shake or a protein bar or Grenadian yogurt or cottage cheese to be consumed [...] weight loss with the bariatric surgeons at [facility]. She is preparing for surgery. No date [...] Type Department Care Team Description 05/24/2025 [facility]ill [facility] [place] [address] [place] [address] Pardeep Du MD Medication Refill from Last 3 Months Immunizations Immunization Administration [...] LUNG CANCER SCREENING (LDCT Only) 2022 09/26/2019 RSV VACCINE (1 - Risk 50-74 years 1-dose series) 2022 ZOSTER VACCINES (1 of 2) 2022 DEPRESSION SCREENING 12/06/2022 12/06/2021 MAMMOGRAM 05/01/2025 05/01/2023, 12/27, 11/28/2020, Additional history exists INFLUENZA VACCINE (#1) [...] this topic Medical Devices Implanted Type Area Wool Hat Forming Machine Tender Device Identifier Shelf Expiration Date Model / Serial / Lot System Implant Achilles [employer] - [id number] Implanted:Qty: 1 on 06/20/2022 by Drake Canales MD at [facility] Left: Ankle ARTHREX 03/27/2025 [id number] / / [id number] Procedures Procedure Name Priority Date/Time Associated Diagnosis Comments ENDOSCOPY, COLON 05/03/2025 10:2 4 AM EDT BI MAMMOGRAM SCREENING WITH TOMOSYNTHESIS [...] Marion MD - 05/03/2025 10:24 AM EDT [facility] Patient Name: Heidi Erickson Regan Attending MD:: LANI MARION MD, Procedure Date: 05/03/2025 10:24 AM Date of : 1970 Age: 54 Admit Type: Outpatient Gender: Female Room: [facility] 04 Referring MD: Kirstin Reyes Exam Type: Colonoscopy [...] monitored continuously. The Olympus adult variable colonoscope [id number] #[id number] was introduced through the anus and [...] 10:24 AM Procedure Code(s): --- Professional --- 76115, Colonoscopy, flexible; with removal of tumor(s), polyp(s), or other lesion(s) by snare technique --- Technical --- 41556, Colonoscopy, flexible; with removal of tumor(s), polyp(s), or other lesion(s) by snare technique CPT copyright 2021 [employer]. All rights reserved. The codes documented in this report are preliminary and upon manager mutual fund reviewmay be revised to meet current compliance requirements. Procedure Date: 05/03/2025 10:24:[address] [place], [place] [id number] Kirstin GRAJEDA GI PROCEDURE ORDERABL ES Final Result * (ABNORMAL) BI MAMMOGRAM SCREENING WITH TOMOSYNTHESIS [...] (12/09/2022 4:15 AM EST) HDL 66 mg/dL [facility] Comment: Interpretation <40 mg/dL: Low HDL cholesterol (major risk factor for CHD) Greater than or equal to 60 mg/dL: High HDL cholesterol ( negative risk factor for CHD) HDL - cholesterol is affected by a number of factors, e.g. smoking, excerise, hormones, sex and age. CHOLESTEROL 163 0 - 240 mg/dL [facility] TRIGLYCERIDES 73 30 - 160 mg/dL [facility] LDL 82 50 - 129 mg/dL [facility] Comment: LDL levels in terms of risk for coronary heart disease: <100 mg/dL: Optimal 100-129 mg/dL: Near or above optimal 130-159 mg/dL: Borderline high 160-189 mg/dL: High >190 mg/dL: Very High CARDIAC RISK RATIO 2.5(L) 3.3 - 4.4 C [facility] Blood 12/09/2022 4:15 AM EST 12/09/2022 4:23 AM EST Olinda Higgins MD LAB BLOOD ORDERABLES Final Result Performing Organization Address City/State/[facility] Co de Phone Number [address] [address] * Pap Smear (03/20/2022 12:00 AM EDT) 03/20/2022 03/21/2022 8:4 4 AM EDT Narrative SEE NARRATIVE - 03/27/2022 11:19 AM EDT [address] [address] Hat Brusher Machine: Emily Estevez MD FOOD MIXER REPAIRER Cytology Report FINAL DIAGNOSIS A. PAP SMEAR [...] 52, 56, 58, 59, 66, 68) by IDRI ([employer]fect[employer]) HR-HPV analysis. Clinical correlation is advised. This HPV test was performed at [facility], [address] [place] [address]. This test has been FDA approved for [facility] cervical cytology specimens. The accuracy and precision of this test for all other specimen sources has been verified in the Cytopathology Laboratory of the [facility] and has not been cleared or approved by the U.S. Food and Drug Administration. Clinical correlation is advised. CLINICAL HISTORY Date of Last Menstrual Period: 03-20-2022 Menstrual History: Bleeding, Abnormal Other Clinical Conditions: Screening Pap SPECIMEN SOURCE A: PAP SMEAR (SUREPATH) CE Patient Name: HEIDI GUPTA : 1970 (Age: 51) Sex: F Institution: [facility] Location: [facility] Date of Collection: 03/20/2022 Date of Reported: 03/27/2022 11:19 Results to: Ted Bello MD Ted Bello MD CYTOLOGY ORDERABLES Final Result Performing Organization Address City/[facility] Co de Phone Number SEE NARRATIVE * Hepatitis C antibody, qualitative (01/25/2022 8:02 AM EDT) HCV NON-REACTIV E NON-REACTI VE [facility] Blood 01/25/2022 8:02 AM EDT 01/25/2022 8:06 AM EDT Pardeep Du MD LAB BLOOD ORDERABLES Final Result Performing Organization Address [facility] Co de Phone Number [facility] [address] [place] [address] * CT CHEST PULMONARY ANGIOGRAM (ACUTE) (09/26/2019 1:20 AM EST) Anatomical Region Laterality Modality Chest, Thoracic Vasculature Comp uted Tomography 09/26/2019 8:24 AM EST Impressions 09/26/2019 8:29 AM EST No pulmonary embolism demonstrated. Peripheral subsegmental emboli could be occult on this examination. No focal airspace infiltrate or pleural effusion. These findings were relayed to the Emergency Department by the [facility] on 09/26/2019. Incidental non-obstructive left nephrolithiasis. TOTAL CTDIvol: 113.60 mGy POS - [id number] Narrative 09/26/2019 8:29 AM EST COMPARISON: 09/25/2019 [...] were relayed to the Emergency Department by [facility] on 09/26/2019. Incidental non-obstructive left nephrolithiasis. TOTAL CTDIvol: 113.60 mGy POS - [id number] us Dilshad Duncan DO IMG CT CHEST Final Result from Last 3 Months or Most Recently Relevant to Health Maintenance Insurance [facility] [place] [address] [facility] [employer]ESSIVE INSURANCE Advance Directives For more information, please contact: [phone] (9AM - 5PM [facility], Saturday-Saturday) * Full Code (Latest Code Status on File) Date Activated Date Inactivated Comments 12/09/2022 3:44 AM Question Answer Comments Code Status Confirmed With: PatientFamily Care Teams Farmworker Livestock Relationship Specialty Start Date End Date Kirstin Reyes PA [address] [place] [address] [place] [address] PCP - General Physician Foundry Molder 05/03/25 Additional Source Comments The information contained in this document represents components of the legal health record. It is not the complete legal health record.[facility]
--- OUTSIDE RECORDS SUMMARY | 2025-08-12 14:16 | XMS_ITS | Encounter Summary ---
Author Organization [facility] Address [address] [place] [address] Phone Care Team Providers Care Museum Curator Name Role Phone Pardeep Du MD Primary Care Provider Pardeep Du MD Unavailable [phone] Jessie Smith RN Unavailable [phone] Delilah Cervantes DO Primary Care Provider [phone] Kirstin Reyes Primary Care Provide r Encounter Details Date Type Department Care Team (Late st Contact Info) Description 06/20/2022 Procedure Pass [place] Admitting Dept - Virtual Department [address] [place] [address] Social History Tobacco Use Types Packs/Day Years [...] education for yourself related to: Learning the Colombian language? Completing high school, earning a high [...] documented as of this encounter Care Teams Museum Curator Relationship Specialty Start Date End Date Pardeep Du MD [address] [place] [address], [address] [place] [address] francisco PCP - General Internal Medicine 04/01/19 05/18/24 Delilah Cervantes DO [address] [place] [id number] PCP - General Family Medicine 05/19/24 05/02/25 Kirstin Reyes PA [address] [place] [address] [place] [address] PCP - General Physician Metal Cut Off Saw Operator 05/03/25 Pardeep Du MD [address] [place] [address], [address] [place] [address] francisco [email or web address] Insurance Assigned Provider 08/08/19 07/06/23 Jessie Smith, RN [address] [place] [phone] [email or web address] PHCM Rink Rat 12/12/22 01/24/23 documented as of this encounter Additional Source Comments The information contained in this document represents components of the legal health record. It is not the complete legal health record.[facility]
--- OUTSIDE RECORDS SUMMARY | 2025-08-12 14:16 | XMS_ITS | Encounter Summary ---
Author Organization [facility] Address [address] [place] [address] Phone Care Team Providers Care C4 Planner Name Role Phone Pardeep Du MD Primary Care Provider Pardeep Du MD Unavailable [phone] Jessie Smith RN Unavailable [phone] Delilah Cervantes DO Primary Care Provider Kirstin Reyes Primary Care Provide r Encounter Details Date Type Department Care Team (Late st Contact Info) Description 03/23/2021 Procedure Pass [facility], [address] [place] [address] Social History Tobacco Use Types Packs/Day Years [...] education for yourself related to: Learning the Nepali language? Completing high school, earning a high [...] documented as of this encounter Care Teams C4 Planner Relationship Specialty Start Date End Date Pardeep Du MD [address] [place] [address], [address] [place] [address] francisco PCP - General Internal Medicine 04/01/19 05/18/24 Delilah Cervantes DO [address] [place] [address] PCP - General Family Medicine 05/19/24 05/02/25 Kirstin Reyes PA [address] [place] [address] [place] [address] PCP - General Physician Sand Mixer Operator 05/03/25 Pardeep Du MD [address] [place] [address], [address] [place] [address] francisco [email or web address] Insurance Assigned Provider 08/08/19 07/06/23 Jessie Smith, RN [address] [place] [address] [email or web address] PHCM Expedition Supervisor 12/12/22 01/24/23 documented as of this encounter Additional Source Comments The information contained in this document represents components of the legal health record. It is not the complete legal health record.[facility]
== END 2025-08-12 11:08 | disposition home or self-care (01) ==
LOC: HO.LAB 11:07
PROVIDERS: Visit Provider Student in an Organized Health Care Education/Training Program
DX: R79.89 Other specified abnormal findings of blood chemistry (principal); E03.8 Other specified hypothyroidism
CPT/HCPCS: 36415; 84439; 84443

== ENCOUNTER → 2025-08-18 13:10 | Outpatient (REF) | payer OTHER, SELFPAY | LOC: HO.SL 13:10 | DX: R06.83 Snoring (principal); G47.10 Hypersomnia, unspecified; R40.0 Somnolence | CPT/HCPCS: 95806 ==

== ENCOUNTER 2025-09-02 10:01 | Outpatient (RCR) | payer OTHER, SELFPAY | END 2025-09-14 15:13 | disposition home or self-care (01) | LOC: HO.PT 10:01 | PROVIDERS: Visit Provider Registered Nurse Emergency | DX: M25.552 Pain in left hip (principal) | CPT/HCPCS: 97110; 97162 ==

== ENCOUNTER 2025-09-04 23:18 | Emergency (ER) | payer OTHER, SELFPAY ==
[2025-09-04 23:26] VITALS: BP 171/81; PULSE 65; RESP 18; TEMP 36.5; O2SAT 96; BMI 56.1
[2025-09-04 23:50] LABS: Hematocrit 38.9 % (37.0-47.0); Hemoglobin 12.2 g/dl (12.0-16.0); Imm Gran Abs Auto 0.03 X10*3/uL (0.00-0.03); Imm Gran Pct Auto 0.5 % (0.0-0.4); Lymphocytes Absolute Auto 1.9 X10*3/uL (1.2-4.9); MANUAL DIFF FLAG NO; Mean Corpuscular HGB Conc 31.4 g/dl (31.0-35.0); Mean Corpuscular Hemoglobin 28.2 pg (27.0-33.0); Mean Corpuscular Volume 90.0 fL (80.0-98.0); NRBC Abs Auto 0.000 X10*3/uL (0.0-0.012); NRBC Pct Auto 0.0 /100WBC (0.0-0.2); Platelet Count 244 X10*3/uL (160-400); Red Blood Count 4.32 X10*6/uL (4.20-5.50); White Blood Count 6.1 X10*3/uL (4.8-10.8)
[2025-09-04 23:55] LABS: Appearance Urine Cloudy; Glucose Urine UA Negative (Negative); PH 6.5 (5.0-9.0); Specific Gravity - Urine 1.015 (1.005-1.025); UMIC TRIGGER UACC YES
[2025-09-05] LABS: UACC Culture Trigger YES
[2025-09-05 00:03] LABS: Alanine Aminotransferase 18 U/L (0-31); Albumin Level 4.4 g/dL (3.5-5.0); Alkaline Phosphatase 112 U/L (39-117); Anion Gap 13 (12-20); Aspartate Amino Transferase 20 U/L (5-31); Blood Urea Nitrogen 14 mg/dL (9-16); Calcium 8.9 mg/dL (8.4-10.2); Carbon Dioxide 27 mmol/L (22-29); Chloride 106 mmol/L (96-108); Creatinine Clr Calc Pharmacy 174.3; Estimated Glomerular Filt Rate > 60; Potassium 4.6 mmol/L (3.3-5.1); Sodium 141 mmol/L (135-145); Total Protein 7.2 g/dL (6.5-8.0)
--- NOTE | 2025-09-05 00:57 | ED_ITS ---
HPI - Back Pain/Injury General Chief Complaint: Back Pain/Injury Stated Complaint: lower back pain Time Seen by Provider: 09/05/25 00:47 Source: patient Mode of arrival: ambulatory Limitations: no limitations History of Present Illness ED Provider: Dr. Phylicia Egan HPI Narrative: Patient comes to the emergency room complaining of right middle and lower back pain. Patient states that the pain has been present for 6 days, started a few hours after her 1st therapy of physical therapy. Patient states that 3 years ago she was injured in her hip and is known to have herniated discs. Patient states that 6 days ago when she was in physical therapy, they made her rotate her lower extremities in a certain way that hurt her. Patient states that the pain is constant, nonradiating. Denies hematuria dysuria, denies flank pain. Denies urinary/fecal incontinence/retention. Patient ambulatory but hurts to do so. Related Data Home Medications ?Medication ?Instructions ?Recorded ?Confirmed omeprazole 20 mg capsule,delayed 20 mg PO DAILY 07/02/25 release mecobalamin (vitamin B12) 10,000 1,000 mcg subcut .onc e a week 06/24/24 07/02/25 mcg solution for injection cyanocobalamin (vitamin B-12) mcg IM 02/26/25 07/02/25 1,000 mcg/mL injection solution Previous Rx's ?Medication ?Instructions ?Recorded albuterol sulfate 90 mcg/actuation 2 puff inhalation Q 6H PRN 07/20/24 aerosol inhaler (Proventil HFA) shortness of breath or wheezing #6.7 grams vitamin A palmitate 3,000 mcg 20,000 unit PO DAILY 30 days #60 07/20/24 (10,000 unit) tablet tabs thiamine HCl (vitamin B1) 100 mg 100 mg PO DAILY 90 da ys #90 tabs 07/31/24 tablet sucralfate 1 gram tablet (Carafate) 1 g PO BID PRN aci d reflux #14 tabs 09/03/24 Shower Chair #1 ea 09/09/24 Kneeling Scooter #1 ea 12/04/24 sennosides 8.6 mg capsule (senna) 8.6 mg PO BEDTIME MS N constipation 12/16/24 #30 caps lidocaine 5 % topical patch 1 patch topical DAILY PRN pain #30 03/12/25 (Lidoderm) ea naproxen 500 mg tablet 500 mg PO BID PRN pain 10 da ys #20 03/12/25 tabs hypoallergenic sanitary wipes #1 ea 03/18/25 Bed pads #100 ea 04/09/25 Depends sanitary pads #200 ea 04/09/25 wipes #2 ea 04/09/25 methocarbamol 500 mg tablet 500 mg PO TID PRN muscle s pasm #90 04/27/25 tabs prednisone 20 mg tablet 40 mg (2 x 20 mg) PO DAILY # 8 tabs 06/17/25 chlorthalidone 25 mg tablet 25 mg PO DAILY #90 tabs cyclobenzaprine 10 mg tablet 10 mg PO TID PRN muscle s pasm #20 06/29/25 tabs fexofenadine 180 mg tablet 180 mg PO DAILY #30 tabs ibuprofen 600 mg tablet 600 mg PO Q6H PRN pain #20 t abs 07/02/25 nebulizer #1 ea 07/02/25 Orthopedic neck pillow #1 ea 07/05/25 cholecalciferol (vitamin D3) 25 50 mcg (2 x 25 mcg (1, 000 unit)) 07/15/25 mcg (1,000 unit) capsule (Vitamin PO DAILY #30 caps D3) levothyroxine 50 mcg tablet 50 mcg PO DAILY #30 tabs 1 (Synthroid) CPAP with auto PAP 6-20 cm with #1 ea 08/23/25 heated humidification furosemide 40 mg tablet 60 mg (1.5 x 40 mg) PO DAILY #135 09/01/25 tabs cyclobenzaprine 10 mg tablet 10 mg PO TID PRN muscle s pasm #14 09/05/25 tabs ketorolac 10 mg tablet 10 mg PO Q8H PRN pain #12 ta bs 09/05/25 Allergies Allergy/AdvReac Type Severity Reaction Status Date / Time morphine Allergy Severe Shortness Verified 09/04/25 23:28 of Breath Seasonal Allergies Allergy Severe Sneezing Verified 09/04/25 23:28 latex (Latex) Allergy Intermediate ITCHY, Verified 09/04/25 23:28 RASH , AND FUNGUS oxycodone Allergy Intermediate Rash Verified 09/04/25 23:28 opium (anthroposophic) Allergy Unknown Hives Verified 09/04/25 23:28 Review of Systems 2 Review of Systems: Constitutional : No Weight loss, No Fever, No Chills, No Night Sweats, No Fatigue, No Malaise ENT/Mouth : No Hearing loss, No Ear Pain, No Nasal Congestion, No Sinus Pain, No Hoarseness, No sore throat, No Rhinorrhea, No Swallowing Difficulty Eyes: No Eye Pain, No Swelling, No Redness, No Foreign Body, No Discharge, No Vision Changes Cardiovascular : No Chest Pain, No SOB, No Dyspnea on Exertion, No Orthopnea, No Edema, No Palpitations Respiratory : No Cough, No Sputum, No Wheezing, No Smoke Exposure, No Dyspnea Gastrointestinal : No Nausea, No Vomiting, No Diarrhea, No Constipation, No abdominal Pain, No Hematochezia, No Melena Genitourinary : no irregular bleeding, No Dysuria, No Urinary Frequency, No Hematuria, No Urinary Incontinence, No Urgency, No Flank Pain, No Urinary Flow Changes, No Hesitancy Musculoskeletal : Complaining of constant right middle and lower back pain Skin : No Skin Lesions, No rash Neuro : No Weakness, No Numbness, No Paresthesias, No Loss of Consciousness, No Dizziness, No Headache Psych : No Anxiety/Panic, No Depression, No SI/HI/AH/VH, No Social Issues, Heme/Lymph: No Bruising, No Bleeding,No Lymphadenopathy Endocrine : No Polyuria, No Polydipsia, No Temperature Intolerance PMFSH Past Medical History Medical History Peripheral edema Essential hypertension Subclinical hypothyroidism Thyromegaly Lipoma of chest wall Chronic diastolic (congestive) heart failure Anal fistula Sinus complaint Sterilization Kidney stone Acute appendicitis Vesicular dermatitis Enlarged lymph node Acute bacterial tonsillitis History of claustrophobia History of anxiety Hx of tendinitis Hx of bursitis History of knee problem Hx of chronic arthritis Family history of heart murmur History of asthma Surgical History History of hand surgery Hx of carpal tunnel repair H/O bilateral mastectomy History of kidney surgery Hx of tubal ligation Hx of tonsillectomy Hx of breast surgery Hx of appendectomy Hx of cholecystectomy Hx of knee surgery History of Achilles tendon repair Family History Family History Mother Accelerated hypertension Arthritis Cancer of stomach Father Arthritis Sister No problems noted. Sister Arthritis Accelerated hypertension Sister No problems noted. Sister No problems noted. Brother Overdose Brother HIV disease Son Asthma Son No problems noted. Son No problems noted. Son No problems noted. Daughter No problems noted. Social History Social History Housing: Apartment Alcohol intake: never Patient Tobacco Use Status: Former Tobacco user Tobacco use type: Cigarette Cigarettes Per Day: 1 Years Smoked: 30 e-Cigarette/Vaping Use: Never Used Second Hand Smoke Exposure: Yes service: No Current occupational status: unemployed Cognitive needs: Yes Hearing needs: No Vision needs: Yes Physical Exam 2 Exam: Exam: Appearance: Alert. Oriented X3. No acute distress. Eyes: Pupils equal, round and reactive to light. ENT: Pharynx normal. Neck: Normal inspection. Neck supple. No lymph nodes noted. No crepitus CVS: Normal heart rate and rhythm. Pulses normal. Normal S1 and S2 Respiratory: No respiratory distress. Breath sounds normal. No Wheezing. No rales Abdomen: Soft and nontender. No rigidity. No distention. No CVA tenderness Back: Pain to palpation in the paraspinal muscles on the right side Skin: Skin warm and dry. Normal skin color. Normal skin turgor. Extremities: No lower extremity edema. No Lacerations. No Rash Neuro: Oriented X 3. No motor deficit. No sensory deficit. Moving all extremities. No slurred speech. CN 2 through 12 grossly intact Psych: calm, cooperative, normal affect Vital Signs: Vital Signs: Last Vital Signs Temp 97.7 F 09/04/25 23:26 Pulse 65 09/04/25 23:26 Resp 18 09/04/25 23:26 BP 171/81 H 09/04/25 23:26 Pulse Ox 96 09/04/25 23:26 O2 Del Method Room Air 09/04/25 23:26 BMI result Body Mass Index 56.1 Medications Administered Discontinued Medications Generic Name Dose Route Start Last Admin Trade Name Freq PRN Reason Stop Dose Admin Cyclobenzaprine HCl 10 mg 09/05/25 00:56 09/05/25 01:09 Cyclobenzaprine Hcl 10 Mg Tablet PO 09/05/25 00:57 10 mg ONCE ONE Administration Ketorolac Tromethamine 60 mg 09/05/25 00:56 09/05/25 01:10 Ketorolac Tromethamine 60 Mg/2 Ml Vial IM 09/05/25 00:57 60 mg ONCE ONE Administration Medical Decision Making Medical Decision Making [facility] Narrative: I discussed the labs with the patient, no abnormality in patient's hematology or chemistry, normal LFTs, urinalysis negative for UTI. There leukocyte esterase, WBCs and squamous epithelial cells. Likely a contaminant. I discussed the physical exam with the patient. Patient likely has musculoskeletal pain. Patient admits that the pain started after her 1st appointment of physical therapy. Patient was given IM ketorolac and cyclobenzaprine. Patient's will be driving. Patient has history of kidney stones. However, patient states that the pain this time is constant, nonradiating. Worse with certain movements. Denies hematuria or dysuria. Patient has normal lower extremity strength, ambulatory, no urinary incontinence/retention. Cauda equina is not suspect Patient is ready to follow-up with the primary care physician. Differential Diagnosis Differential Diagnoses: The differential diagnosis associated with the presentation includes (Musculoskeletal pain, pyelonephritis, kidney stones) Lab Data [facility] Lab Attestation statement: I reviewed the patient's lab results. 09/04/25 23:45 09/04/25 23:45 Labs: Lab Results 09/04/25 09/04/25 Range/Units 23:45 23:49 WBC 6.1 (4.8-10.8) X10*3/uL RBC 4.32 (4.20-5.50) X10*6/uL Hgb 12.2 (12.0-16.0) g/dl Hct 38.9 (37.0-47.0) % MCV 90.0 (80.0-98.0) fL MCH 28.2 (27.0-33.0) pg MCHC 31.4 (31.0-35.0) g/dl RDW 13.7 (11.0-16.0) % Plt Count 244 (160-400) X10*3/uL MPV 9.7 (9.4-12.3) fL Immature Gran % (Auto) 0.5 H (0.0-0.4) % Neut % (Auto) 56.2 (45-73) % Lymph % (Auto) 31.0 (20-40) % [place] % (Auto) 10.0 (2-11) % Eos % (Auto) 1.6 (0-4) % Baso % (Auto) 0.7 (0-2) % Lymph # (Auto) 1.9 (1.2-4.9) X10*3/uL [place] # (Auto) 0.6 (0.1-1.2) X10*3/uL Eos # (Auto) 0.1 (0.0-0.4) X10*3/uL Baso # (Auto) 0.0 (0.0-0.2) X10*3/uL Abs Immat Gran (auto) 0.03 (0.00-0.03) X10*3/uL Absolute Neuts (auto) 3.4 (2.0-8.3) x10*3/uL Absolute Nucleated RBC 0.000 (0.0-0.012) X10*3/uL Nucleated RBC % (auto) 0.0 (0.0-0.2) /100WBC Sodium 141 (135-145) mmol/L Potassium 4.6 (3.3-5.1) mmol/L Chloride 106 (96-108) mmol/L Carbon Dioxide 27 (22-29) mmol/L Anion Gap 13 (12-20) BUN 14 (9-16) mg/dL Creatinine 0.64 (0.5-1.4) mg/dL Estim Creat Clear Calc 174.3 Estimated GFR > 60 Random Glucose 92 (60-115) mg/dL Calcium 8.9 (8.4-10.2) mg/dL Total Bilirubin 0.3 (0.0-1.0) mg/dL AST 20 (5-31) U/L ALT 18 (0-31) U/L Alkaline Phosphatase 112 (39-117) U/L Total Protein 7.2 (6.5-8.0) g/dL Albumin 4.4 (3.5-5.0) g/dL Urine Color Yellow Urine Appearance Cloudy Urine pH 6.5 (5.0-9.0) Ur Specific Erick 1.015 (1.005-1.025) Urine Protein Negative (Neg-Trace) mg/dL Urine Glucose (UA) Negative (Negative) mg/dL Urine Ketones Negative (Negative) mg/dL Urine Blood Negative (Negative) Urine Nitrite Negative (Negative) Ur Leukocyte Esterase Small (1+) H (Negative) Urine RBC 0-2 (0-2) /HPF Urine WBC 6-10 H (0-5) /HPF Ur Squamous Epith Cells 6-10 (0-2) /HPF Urine Bacteria Trace (None Seen) Hyaline Casts 0-2 (0-2) /LPF Tests considered The following testing was considered but not selected: I considered ordering a CT scan of the abdomen/pelvis, patient has history of kidney stones. However, patient has no hematuria, the pain is musculoskeletal Discharge Plan Discharge Clinical Impression: Back pain Patient Disposition: Home, Self-Care Instructions: Acute Low Back Pain (ED), Heat Pack Application (ED) Additional Instructions: Please follow-up with your primary care physician tomorrow. If you have any worsening or new symptoms, please return to the emergency room or call 911 Prescriptions: New ketorolac 10 mg tablet 10 mg PO Q8H PRN (Reason: pain) Qty: 12 0RF Rx Instructions: Do not use this medication with other NSAIDs/ ibuprofen/naproxen. cyclobenzaprine 10 mg tablet 10 mg PO TID PRN (Reason: muscle spasm) Qty: 14 0RF No Action thiamine HCl (vitamin B1) 100 mg tablet 100 mg PO DAILY 90 Days Qty: 90 1RF (DME) Shower Chair Misc See Rx Instructions .Route Qty: 1 0RF Rx Instructions: As directed senna 8.6 mg capsule 8.6 mg PO BEDTIME PRN (Reason: constipation) Qty: 30 0RF (DME) hypoallergenic sanitary wipes See Rx Instructions .Route .MEDSUPPLY Qty: 1 1RF Rx Instructions: As directed (DME) Depends sanitary pads See Rx Instructions .Route .MEDSUPPLY Qty: 200 11RF Rx Instructions: As directed (DME) wipes See Rx Instructions .Route .MEDSUPPLY Qty: 2 11RF Rx Instructions: As directed (DME) Bed pads See Rx Instructions .Route .MEDSUPPLY Qty: 100 11RF Rx Instructions: As directed methocarbamol 500 mg tablet 500 mg PO TID PRN (Reason: muscle spasm) Qty: 90 1RF Rx Instructions: No driving while taking this medication. Do no take with alcohol or other PATIENT AMBASSADOR Depressants chlorthalidone 25 mg tablet 25 mg PO DAILY Qty: 90 0RF cholecalciferol (vitamin D3) [Vitamin D3] 25 mcg (1,000 unit) capsule 50 mcg PO DAILY Qty: 30 3RF levothyroxine [Synthroid] 50 mcg tablet 50 mcg PO DAILY Qty: 30 3RF (DME) CPAP with auto PAP 6-20 cm with heated humidification See Rx Instructions .Route .MEDSUPPLY Qty: 1 0RF Rx Instructions: As directed furosemide 40 mg tablet 60 mg PO DAILY Qty: 135 1RF lidocaine [Lidoderm] 5 % adhesive patch,medicated 1 patch topical DAILY MDD remove after 12 hours PRN (Reason: pain) Qty: 30 0RF Rx Instructions: leave on most painful area for up to 12 hrs naproxen 500 mg tablet 500 mg PO BID PRN (Reason: pain) 10 Days Qty: 20 0RF sucralfate [Carafate] 1 gram tablet 1 g PO BID PRN (Reason: acid reflux) Qty: 14 0RF prednisone 20 mg tablet 40 mg PO DAILY Qty: 8 0RF cyclobenzaprine 10 mg tablet 10 mg PO TID PRN (Reason: muscle spasm) Qty: 20 0RF omeprazole 20 mg capsule,delayed release(DR/EC) 20 mg PO DAILY cyanocobalamin (vitamin B-12) 1,000 mcg/mL solution IM mecobalamin (vitamin B12) 10,000 mcg recon soln 1,000 mcg subcut .once a week albuterol sulfate [Proventil HFA] 90 mcg/actuation HFA aerosol inhaler 2 puff inhalation Q6H PRN (Reason: shortness of breath or wheezing) Qty: 6.7 0RF vitamin A palmitate 3,000 mcg (10,000 unit) tablet 20,000 unit PO DAILY 30 Days Qty: 60 0RF (DME) Kneeling Scooter See Rx Instructions .ROUTE .MEDSUPPLY Qty: 1 0RF Rx Instructions: As directed Tenivac (PF) 5-2 Lf unit/0.5 mL syringe 0.5 ml IM ONCE Qty: 0.5 0RF (DME) nebulizer See Rx Instructions .Route .MEDSUPPLY Qty: 1 0RF Rx Instructions: As directed fexofenadine 180 mg tablet 180 mg PO DAILY Qty: 30 3RF ibuprofen 600 mg tablet 600 mg PO Q6H PRN (Reason: pain) Qty: 20 0RF (DME) Orthopedic neck pillow See Rx Instructions .Route .MEDSUPPLY Qty: 1 0RF Rx Instructions: As directed Print Language: Tristanian
--- OUTSIDE RECORDS SUMMARY | 2025-09-05 01:07 | XMS_ITS | Encounter Summary ---
Author Organization [facility] Address [address] [place] [address] Phone Care Team Providers Care Sensor Technician Name Role Phone Pardeep Du MD Primary Care Provider Pardeep Du MD Unavailable Jessie Smith RN Unavailable [phone] Delilah Cervantes DO Primary Care Provider Kirstin Reyes Primary Care Provide r Encounter Details Date Type Department Care Team (Late st Contact Info) Description 05/04/2019 Ancillary Orders [facility] [address] [place] [address] [place] [address] Andrew Alberto MD [address] [place] [address] [place] [address] [email or web address] Pain in both knees, unspecified [...] to medium sized joint effusion. POS - [id number] Narrative 05/04/2019 1:28 PM EDT Left knee [...] to medium sized joint effusion. POS - [id number] Andrew Alberto MD IMG XR LOWER EXTREMITY F inal Result * XR KNEE 4 OR MORE VIEWS (RIGHT) (05/04/2019 1:07 PM EDT) Anatomical Region Laterality Modality Knee Right Radiographic Jesika ging 05/04/2019 1:27 PM EDT Impressions 05/04/2019 1:28 PM EDT Moderate medial compartment osteoarthritis. No erosive changes or bony lesion seen. Prominent joint effusion. POS - [id number] Narrative 05/04/2019 1:28 PM EDT Right knee [...] bonylesion seen. Prominent joint effusion. POS - [id number] Andrew Alberto MD IMG XR LOWER EXTREMITY [...] documented as of this encounter Care Teams Sensor Technician Relationship Specialty Start Date End Date Pardeep Du MD [address] [place] [address], [address] [place] [address] francisco PCP - General Internal Medicine 04/01/19 05/18/24 Delilah Cervantes DO [address] [place] [id number] PCP - General Family Medicine 05/19/24 05/02/25 Kirstin Reyes PA [address] [place] [id number] PCP - General Physician Hot Dip Tinning Supervisor 05/03/25 Pardeep Du MD [address] [place] [address], [address] [place] [phone] francisco Insurance Assigned Provider 08/08/19 07/06/23 Jessie Smith, RN [address] [place] [id number] PHCM Neurological Surgeon 12/12/22 01/24/23 documented as of this encounter Additional Source Comments The information contained in this document represents components of the legal health record. It is not the complete legal health record.[facility]
--- OUTSIDE RECORDS SUMMARY | 2025-09-05 01:07 | XMS_ITS | Encounter Summary ---
Author Organization [facility] Address [address] [place] [address] Phone Care Team Providers Care Senior Estimator Name Role Phone Pardeep Du MD Primary Care Provider [phone] Pardeep Du MD Unavailable [phone] Jessie Smith RN Unavailable [phone] Delilah Cervantes DO Primary Care Provider Kirstin Reyes Primary Care Provide r Encounter Details Date Type Department Care Team (Late st Contact Info) Description 09/16/2019 Ancillary Orders [facility] Imaging [address] [place], [place] [id number] System, Provider Not In, [facility] [address] [address] Social History Tobacco Use Types Packs/Day Years [...] as of this encounter Care Teams Senior Estimator Relationship Specialty Start Date End Date Pardeep Du MD [address] [place] [address], [address] [place] [phone] francisco PCP - General Internal Medicine 04/01/19 05/18/24 Delilah Cervantes DO [address] [place] [id number] PCP - General Family Medicine 05/19/24 05/02/25 Kirstin Reyes PA [address] [place] [address] [place] [address] PCP - General Physician Alligator Shear Operator 05/03/25 Pardeep Du MD [address] [place] [address], [address] [place] [address] francisco Insurance Assigned Provider 08/08/19 07/06/23 Jessie Smith, RN [address] [place] [id number] PHCM Irrigation Worker 12/12/22 01/24/23 documented as of this encounter Additional Source Comments The information contained in this document represents components of the legal health record. It is not the complete legal health record.[facility]
--- OUTSIDE RECORDS SUMMARY | 2025-09-05 01:07 | XMS_ITS | Encounter Summary ---
Author Organization [facility] Address [address] [place] [address] Phone Care Team Providers Care Computer Aided Design Operator Name Role Phone Pardeep Du MD Primary Care Provider [phone] Pardeep Du MD Unavailable [phone] Jessie Smith RN Unavailable [phone] Delilah Cervantes DO Primary Care Provider Kirstin Reyes Primary Care Provide r Encounter Details Date Type Department Care Team (Late st Contact Info) Description 12/17/2022 Procedure Pass [facility], [address] [place] [address] Social History Tobacco Use Types Packs/Day Years [...] education for yourself related to: Learning the Peruvian language? Completing high school, earning a high [...] documented as of this encounter Care Teams Computer Aided Design Operator Relationship Specialty Start Date End Date Pardeep Du MD [address] [place] [address], [address] [place] [address] francisco PCP - General Internal Medicine 04/01/19 05/18/24 Delilah Cervantes DO [address] [place] [id number] PCP - General Family Medicine 05/19/24 05/02/25 Kirstin Reyes PA [address] [place] [address] [place] [address] PCP - General Physician Legislators 05/03/25 Pardeep Du MD [address] [place] [address], [address] [place] [address] francisco [email or web address] Insurance Assigned Provider 08/08/19 07/06/23 Jessie Smith, RN [address] [place] [id number] [email or web address] PHCM Sales Representative [employer] 12/12/22 01/24/23 documented as of this encounter Additional Source Comments The information contained in this document represents components of the legal health record. It is not the complete legal health record.[facility]
--- OUTSIDE RECORDS SUMMARY | 2025-09-05 01:07 | XMS_ITS | Encounter Summary ---
Author Organization [facility] Address [address] [place] [address] Phone Care Team Providers Care Licensed Psychiatric Technician Name Role Phone Kirstin Reyes Primary Care Provide r Encounter Details Date Type Department Care Team (Late st Contact Info) Description 05/03/2025 Procedure Pass [facility] Admitting Dept Virtual Department [address] [place] [address] Social History Tobacco Use Types Packs/Day Years [...] documented as of this encounter Care Teams Licensed Psychiatric Technician Relationship Specialty Start Date End Date Kirstin Reyes PA [address] [place] [address] Dr [place] [phone] PCP - General Physician Machine Stemmer 05/03/25 documented as of this encounter Additional Source Comments The information contained in this document represents components of the legal health record. It is not the complete legal health record.[facility]
--- OUTSIDE RECORDS SUMMARY | 2025-09-05 01:07 | XMS_ITS | Encounter Summary ---
Author Organization [facility] Address [address] [place] [address] Phone Care Team Providers Care Dormitory Counselor Name Role Phone Pardeep Du MD Primary Care Provider [phone] Pardeep Du MD Unavailable [phone] Jessie Smith RN Unavailable [phone] Delilah Cervantes DO Primary Care Provider Kirstin Reyes Primary Care Provide r Encounter Details Date Type Department Care Team (Late st Contact Info) Description 10/18/2020 Procedure Pass [facility] - [address] [place] [address] Social History Tobacco Use Types Packs/Day Years [...] documented as of this encounter Care Teams Dormitory Counselor Relationship Specialty Start Date End Date Pardeep Du MD [address] [place] [address], [address] [place] [address] francisco PCP - General Internal Medicine 04/01/19 05/18/24 Delilah Cervantes DO [address] [place] [id number] PCP - General Family Medicine 05/19/24 05/02/25 Kirstin Reyes PA [address] [place] [address] [place] [address] PCP - General Physician District Gauger 05/03/25 Pardeep Du MD [address] [place] [address], [address] [place] [address] francisco Insurance Assigned Provider 08/08/19 07/06/23 Jessie Smith, RN [address] [place] [address] PHCM Balloon Artist 12/12/22 01/24/23 documented as of this encounter Additional Source Comments The information contained in this document represents components of the legal health record. It is not the complete legal health record.[facility]
--- OUTSIDE RECORDS SUMMARY | 2025-09-05 01:07 | XMS_ITS | Encounter Summary ---
Author Organization [facility] Address [address] [place] [address] Phone Care Team Providers Care Firer Diesel Locomotive Name Role Phone Pardeep Du MD Primary Care Provider [phone] Pardeep Du MD Unavailable [phone] Jessie Smith RN Unavailable [phone] Delilah Cervantes DO Primary Care Provider Kirstin Reyse Primary Care Provide r Encounter Details Date Type Department Care Team (Late st Contact Info) Description 09/16/2019 Ancillary Orders [facility],Outside Imaging [address] [place], [place] [id number] System, Provider Not In, [facility] [address] [address] Social History Tobacco Use Types Packs/Day Years [...] documented as of this encounter Care Teams Firer Diesel Locomotive Relationship Specialty Start Date End Date Pardeep Du MD [address] [place] [address], [address] [place] [address] francisco [email or web address] PCP - General Internal Medicine 04/01/19 05/18/24 Delilah Cervantes DO [address] [place] [address] PCP - General Family Medicine 05/19/24 05/02/25 Kirstin Reyes PA [address] [place] [address] [place] [address] PCP - General Physician Commercial Counsel 05/03/25 Pardeep Du MD [address] [place] [address], [address] [place] [address] francisco Insurance Assigned Provider 08/08/19 07/06/23 Jessie Smith, RN [address] [place] [address] PHCM Electric Motorman 12/12/22 01/24/23 documented as of this encounter Additional Source Comments The information contained in this document represents components of the legal health record. It is not the complete legal health record.[facility]
--- OUTSIDE RECORDS SUMMARY | 2025-09-05 01:08 | XMS_ITS | Clinical Summary ---
Author Organization [facility] Address [address] [facility] [address] [place] [address] Phone Care Team Providers Care Molder Foam Rubber Name Role Phone Kirstin Reyes Primary Care [...] NIGHTLY AT BEDTIME 90 tablet 3 02/18/20 Active Additional Information Patient not taking.Reported on [...] would like to switch her doctors to [facility]. Referral placed. Assessment & Plan (12/30/2023 [...] SHG with thick lining. Normal endometrial biopsy 2018. Progesterone prescribed but not continued, stopped taking [...] 4:55 PM EST): This is a 52-year-old Turkish-speaking woman who I saw using a barrel stave inspector today who has lost about 7 and [...] 12:16 PM EST): This is a 52-year-old Turkish-speaking woman who started the program at [facility] and did not lose very much weight on the program. The patient is now restarting the program at [facility] in an effort to undergo laparoscopic [...] protein shake or a protein bar or Nigerien yogurt or cottage cheese to be consumed [...] weight loss with the bariatric surgeons at [facility]. She is preparing for surgery. No [...] some concerns re T or acromegaly present Immunizations Immunization Administration Dates Next Due COVID-19 [...] patient's age to complete this topic IPV VACCINES Aged Out No longer eligi ble based on patient's age to complete this topic MENINGOCOCCAL VACCINES (ACWY) Aged Out No longer eligible based on patient's age to complete this topic MENINGOCOCCAL VACCINES (B) Aged Out N o longer eligible based on patient's age to complete this topic Medical Devices Implanted Type Area Breakdown Person Device Identifier Shelf Expiration Date Model / Serial / Lot System Implant Achilles Speedbridge Biocomposite - [id number] Implanted:Qty: 1 on 06/20/2022 by Drake Canales MD at [facility] Left: Ankle ARTHREX 03/27/2025 [id number] / / [id number] Procedures Procedure Name Priority Date/Time Associated Diagnosis [...] Marion MD - 05/03/2025 10:24 AM EDT [facility] Patient Name: Heidi Erickson Rivera Attending MD:: LANI MARION MD, Procedure Date: 05/03/2025 10:24 AM Date of : 1970 Age: 54 Admit Type: Outpatient Gender: Female Room: [place] [address] Referring MD: Kirstin Reyes Exam Type: Colonoscopy [...] monitored continuously. The Olympus adult variable colonoscope [id number] #[id number] was introduced through the anus and [...] 10:24 AM Procedure Code(s): --- Professional --- 06458, Colonoscopy, flexible; with removal of tumor(s), polyp(s), or other lesion(s) by snare technique --- Technical --- 88064, Colonoscopy, flexible; with removal of tumor(s), polyp(s), or other lesion(s) by snare technique CPT copyright 2021 [employer]. All rights reserved. The codes documented in this report are preliminary and upon staff genetic counselor reviewmay be revised to meet current compliance requirements. Procedure Date: 05/03/2025 10:24:[address] [place] [address] Kirstin GRAJEDA GI PROCEDURE ORDERABL ES Final [...] (12/09/2022 4:15 AM EST) HDL 66 mg/dL [facility] Comment: Interpretation <40 mg/dL: Low HDL cholesterol (major risk factor for CHD) Greater than or equal to 60 mg/dL: High HDL cholesterol ( negative risk factor for CHD) HDL - cholesterol is affected by a number of factors, e.g. smoking, excerise, hormones, sex and age. CHOLESTEROL 163 0 - 240 mg/dL [facility] TRIGLYCERIDES 73 30 - 160 mg/dL [facility] LDL 82 50 - 129 mg/dL [facility] Comment: LDL levels in terms of risk for coronary heart disease: <100 mg/dL: Optimal 100-129 mg/dL: Near or above optimal 130-159 mg/dL: Borderline high 160-189 mg/dL: High >190 mg/dL: Very High CARDIAC RISK RATIO 2.5(L) 3.3 - 4.4 [facility] Blood 12/09/2022 4:15 AM EST 12/09/2022 4:23 AM EST us Olinda Higgins MD LAB BLOOD BKR ORDERABLES Fi nal Result [address] [address] * Pap Smear (03/20/2022 12:00 AM EDT) 03/20/2022 03/21/2022 8:4 4 AM EDT Narrative SEE NARRATIVE - 03/27/2022 11:19 AM EDT [address] [address] Refrigeration Service Inspector: Emily Estevez MD SUPERVISOR BUILDING MAINTENANCE Cytology Report FINAL DIAGNOSIS A. PAP SMEAR [...] 52, 56, 58, 59, 66, 68) by [place] CK1 Onclarity HR-HPV analysis. Clinical correlation is advised. This HPV test was performed at [facility], [address] [place] [address]. This test has been FDA approved for SurePath cervical cytology specimens. The accuracy and precision of this test for all other specimen sources has been verified in the Cytopathology Laboratory of the [facility] and has not been cleared or approved by the U.S. Food and Drug Administration. Clinical correlation is advised. CLINICAL HISTORY Date of Last Menstrual Period: 03-20-2022 Menstrual History: Bleeding, Abnormal Other Clinical Conditions: Screening Pap SPECIMEN SOURCE A: PAP SMEAR (SUREPATH) CE Patient Name: HEIDI GUPTA : 1970 (Age: 51) Sex: F Institution: [facility] Location: [facility] Date of Collection: 03/20/2022 Date of Reported: 03/27/2022 11:19 Results to: Ted Bello MD Ted Bello MD CYTOLOGY ORDERABLES Final Result SEE NARRATIVE * Hepatitis C antibody, qualitative (01/25/2022 8:02 AM EDT) HCV NON-REACTIV E NON-REACTI VE [facility] Blood 01/25/2022 8:02 AM EDT 01/25/2022 8:06 AM EDT Pardeep Du MD LAB BLOOD BKR ORDERABLES Fi nal Result [facility] [address] [place] [address] * CT CHEST PULMONARY ANGIOGRAM (ACUTE) (09/26/2019 1:20 AM EST) Anatomical Region Laterality Modality Chest, Thoracic Vasculature Comp uted Tomography 09/26/2019 8:24 AM EST Impressions 09/26/2019 8:29 AM EST No pulmonary embolism demonstrated. Peripheral subsegmental emboli could be occult on this examination. No focal airspace infiltrate or pleural effusion. These findings were relayed to the Emergency Department by the [facility] on 09/26/2019. Incidental non-obstructive left nephrolithiasis. TOTAL CTDIvol: 113.60 mGy POS - [id number] Narrative 09/26/2019 8:29 AM EST COMPARISON: 09/25/2019 [...] were relayed to the Emergency Department by [facility] on 09/26/2019. Incidental non-obstructive left nephrolithiasis. TOTAL CTDIvol: 113.60 mGy POS - [id number] us Dilshad Duncan DO IMG CT CHEST Final Result from Last 3 Months or Most Recently Relevant to Health Maintenance [place] [address] [place] [address] ACO [facility] [facility] ACO [place] [address] [place] [address] Advance Directives For more information, please contact: [phone] (9AM - 5PM [facility], Saturday-Saturday) * Full Code (Latest Code Status on File) Date Activated Date Inactivated Comments 12/09/2022 3:44 AM Question Answer Comments Code Status Confirmed With: PatientFamily Care Teams Molder Foam Rubber Relationship Specialty Start Date End Date Kirstin Reyes PA [address] [place] [address] [place] [address] PCP - General Physician Purchasing Coordinator 05/03/25 Additional Source Comments The information contained in this document represents components of the legal health record. It is not the complete legal health record.[facility]
--- OUTSIDE RECORDS SUMMARY | 2025-09-05 01:08 | XMS_ITS | Encounter Summary ---
Author Organization [facility] Address [address] [facility] [address] [place] [address] Phone Care Team Providers Care Baster Hand Name Role Phone Pardeep Du MD Primary Care Provider [phone] Pardeep Du MD Unavailable [phone] Jessie Smith RN Unavailable [phone] Delilah Cervantes DO Primary Care Provider Kirstin Reyes Primary Care Provide r Encounter Details Date Type Department Care Team (Late st Contact Info) Description 06/30/2019 Procedure Pass [facility], [address] [place] [address] Social History Tobacco Use Types Packs/Day Years [...] documented as of this encounter Care Teams Baster Hand Relationship Specialty Start Date End Date Pardeep Du MD [address] [place] [address], [address] [place] [address] [email or web address] PCP - General Internal Medicine 04/01/19 05/18/24 Delilah Cervantes DO [address] [place] [address] PCP - General Family Medicine 05/19/24 05/02/25 Kirstin Reyes PA [address] [place] [address] [place] [address] PCP - General Physician Senior Database Engineer 05/03/25 Pardeep Du MD [address] [place] [address], [address] [place] [address] francisco [email or web address] Insurance Assigned Provider 08/08/19 07/06/23 Jessie Smith, RN [address] [place] [address] [email or web address] PHCM Site Manager 12/12/22 01/24/23 documented as of this encounter Additional Source Comments The information contained in this document represents components of the legal health record. It is not the complete legal health record.[facility]
--- OUTSIDE RECORDS SUMMARY | 2025-09-05 01:08 | XMS_ITS | Encounter Summary ---
Author Organization [facility] Address [address] [facility] [facility] [address] [place] [address] Phone Care Team Providers Care Legal Technician Name Role Phone Pardeep Du MD Primary Care Provider Delilah Cervantes DO Primary Care Provider Kirstin Reyes Primary Care Provide r Encounter Details Date Type Department Care Team (Late st Contact Info) Description 04/06/2024 Procedure Pass [facility], Ct Scan - [address] [address] Social History Tobacco Use Types Packs/Day Years [...] documented as of this encounter Care Teams Legal Technician Relationship Specialty Start Date End Date Pardeep Du MD [address] [place] [address], 2[address] [place] [address] francisco [email or web address] PCP - General Internal Medicine 04/01/19 05/18/24 Delilah Cervantes DO [address] [place] [address] PCP - General Family Medicine 05/19/24 05/02/25 Kirstin Reyes PA [address] [place] [address] [facility] [place] [address] PCP - General Physician Executive Meeting Manager 05/03/25 documented as of this encounter Additional Source Comments The information contained in this document represents components of the legal health record. It is not the complete legal health record.[facility]
--- OUTSIDE RECORDS SUMMARY | 2025-09-05 01:08 | XMS_ITS | Encounter Summary ---
Author Organization [facility] Address [address] [facility] [address] [place] [address] Phone Care Team Providers Care Setter Out Name Role Phone Pardeep Du MD Primary Care Provider Pardeep Du MD Unavailable Delilah Cervantes DO Primary Care Provider [phone] Kirstin Reyes Primary Care Provide r Encounter Details Date Type Department Care Team (Late st Contact Info) Description 05/06/2023 Ancillary Orders [facility] [address] [place] [address] [place] [address] Pardeep Du MD [address] [place] [address], 2nd [place] [address] francisco [email or web address] Abnormal finding on mammography Social History Tobacco [...] documented as of this encounter Care Teams Setter Out Relationship Specialty Start Date End Date Pardeep Du MD [address] [place] [address], 2nd [place] [address] francisco PCP - General Internal Medicine 04/01/19 05/18/24 Delilah Cervantes DO [address] [place] [address] PCP - General Family Medicine 05/19/24 05/02/25 Kirstin Reyes PA [address] [place] [address] [place] [address] PCP - General Physician Industrial Maintenance Electrician 05/03/25 Pardeep Du MD [address] [place] [address], 2nd [place] [address] francisco [email or web address] Insurance Assigned Provider 08/08/19 07/06/23 documented as of this encounter Additional Source Comments The information contained in this document represents components of the legal health record. It is not the complete legal health record.[facility]
--- OUTSIDE RECORDS SUMMARY | 2025-09-05 01:08 | XMS_ITS | Encounter Summary ---
Author Organization [facility] Address [address] [place] [address] Phone Care Team Providers Care Barn Worker Name Role Phone Pardeep Du MD [...] CONTRAST Gilda Carranza PA-C Phone: tel: fax: [email or web address]:[email or web address] Referral ID Status Reason Start Date Expiration Date Visits Re quested Visits Authorized [id number] Closed 07/07/2024 09/05/2024 1 1 Encounter Details Date Type Department Care Team (Latest Contact Info) Description 04/06/2024 Transcribe Orders Virtual Department [address] [place] [address] Gilda Carranza PA-C [address] [place] [address] LLQ abdominal pain (Primary Dx); Constipation, unspecified [...] llq abdomen pain, [facility] lower [facility] as well as constipation [...] documented as of this encounter Care Teams Barn Worker Relationship Specialty Start Date End Date Pardeep Du MD [address] [place] [address], 2nd [place] [address] francisco [email or web address] PCP - General Internal Medicine 04/01/19 05/18/24 Delilah Cervantes DO [address] [place] [address] PCP - General Family Medicine 05/19/24 05/02/25 Kirstin Reyes PA [address] [place] [address] [place] [address] PCP - General Physician Perl Software Engineer 05/03/25 documented as of this encounter Additional Source Comments The information contained in this document represents components of the legal health record. It is not the complete legal health record.[facility]
--- OUTSIDE RECORDS SUMMARY | 2025-09-05 01:08 | XMS_ITS | Encounter Summary ---
Author Organization [facility] Address [address] [facility] [address] [place] [address] Phone Care Team Providers Care Electrician Second Name Role Phone Pardeep Du MD Primary Care Provider [phone] Pardeep Du MD Unavailable [phone] Jessie Smith RN Unavailable [phone] Delilah Cervantes DO Primary Care Provider Kirstin Reyes Primary Care Provide r Encounter Details Date Type Department Care Team (Late st Contact Info) Description 04/06/2022 Procedure Pass [facility]oscopy Admitting Dept Virtual Department [address] [place], [place] [id number] Social History Tobacco Use Types Packs/Day Years [...] documented as of this encounter Care Teams Electrician Second Relationship Specialty Start Date End Date Pardeep Du MD [address] [place] [address], 2nd [place] [address] francisco PCP - General Internal Medicine 04/01/19 05/18/24 Delilah Cervantes DO [address] [place] [address] PCP - General Family Medicine 05/19/24 05/02/25 Kirstin Reyes PA NPI: [id number] [place] [address] [place] [address] PCP - General Physician Copy Manager 05/03/25 Pardeep Du MD [address] [place] [address], 2nd [place] [address] francisco [email or web address] Insurance Assigned Provider 08/08/19 07/06/23 Jessie Smith, RN [address] [place] [address] [email or web address] PHCM Machine Adjuster Helper 12/12/22 01/24/23 documented as of this encounter Additional Source Comments The information contained in this document represents components of the legal health record. It is not the complete legal health record.[facility]
--- OUTSIDE RECORDS SUMMARY | 2025-09-05 01:08 | XMS_ITS | Clinical Summary ---
Author Organization [employer] Address [address] [facility] 7t [place] [address] Care Team Providers Care Patient Admitting Clerk Name Role Phone Unavailable Primary Care Provider [...] patient's age to complete this topic Insurance [facility] C[facility]
--- OUTSIDE RECORDS SUMMARY | 2025-09-05 01:08 | XMS_ITS | Encounter Summary ---
Author Organization [facility] Address [address] [facility] [address] [place] [address] Phone Care Team Providers Care Trainer Name Role Phone Pardeep Du MD Primary Care Provider Pardeep Du MD Unavailable Jessie Smith RN Unavailable [phone] Delilah Cervantes DO Primary Care Provider Kirstin Reyes Primary Care Provide r Encounter Details Date Type Department Care Team (Late st Contact Info) Description 07/23/2019 Ancillary Orders Non-Invasive Cardiology [address] [place] [address] Pardeep Du MD [address] [facility], 2nd [place] [address] francisco [email or web address] Chest pain, unspecified type Social History Tobacco [...] AM EDT) Max BP Systolic 130 mmHg [facility] Max BP Diastolic 70 mmHg [facility] Max HR 88 BPM [facility] Resting HR 57 BPM [facility] Resting BP Systolic 126 mmHg [facility] Resting BP Diastolic 78 mmHg [facility] Peak METS 1.0 METS [facility] Peak HR 87 BPM [facility] Anatomical Region Laterality Modality Heart Other 07/23/2019 [...] rate. Patient was unable to walk on due to back and joint pain. The patient was infused with 0.4 mg of Regadenoson (Lexiscan) intravenously over 10 seconds followed immediately by the injection of the Tc99m Sestamibi by the nuclear medicine medical director. Patient tolerated infusion without complications. Test terminated [...] documented as of this encounter Care Teams Trainer Relationship Specialty Start Date End Date Pardeep Du MD [address] [place] [address], 2nd [place] [address] francisco [email or web address] PCP - General Internal Medicine 04/01/19 05/18/24 Delilah Cervantes DO [address] [place] [address] PCP - General Family Medicine 05/19/24 05/02/25 Kirstin Reyes PA [address] [place] [address] [place] [address] PCP - General Physician Hydrographical Technical Officer 05/03/25 Pardeep Du MD [address] [place] [address], 2[address] [place] [address] francisco [email or web address] Insurance Assigned Provider 08/08/19 07/06/23 Jessie Smith, RN [address] [place] [address] [email or web address] PHCM Kraft Mill Operator 12/12/22 01/24/23 documented as of this encounter Additional Source Comments The information contained in this document represents components of the legal health record. It is not the complete legal health record.[facility]
--- OUTSIDE RECORDS SUMMARY | 2025-09-05 01:08 | XMS_ITS | Encounter Summary ---
Author Organization [facility] Address [address] [facility] [address] [place] [address] Phone Care Team Providers Care Scientific Programmer Analyst Name Role Phone Pardeep Du MD Primary Care Provider [phone] Pardeep Du MD Unavailable [phone] Delilah Cervantes DO Primary Care Provider Kirstin Reyes Primary Care Provide r Encounter Details Date Type Department Care Team (Late st Contact Info) Description 04/05/2023 Procedure Pass [facility] [address] [place] [address] Social History Tobacco Use Types Packs/Day Years [...] documented as of this encounter Care Teams Scientific Programmer Analyst Relationship Specialty Start Date End Date Pardeep Du MD [address] [place] [address], 2nd [place] [address] francisco PCP - General Internal Medicine 04/01/19 05/18/24 Delilah Cervantes DO [address] [place] [address] PCP - General Family Medicine 05/19/24 05/02/25 Kirstin Reyes PA [address] [place] [address] [place] [address] PCP - General Physician Process Line Operator 05/03/25 Pardeep Du MD [address] [place] [address], 2nd [place] [address] francisco [email or web address] Insurance Assigned Provider 08/08/19 07/06/23 documented as of this encounter Additional Source Comments The information contained in this document represents components of the legal health record. It is not the complete legal health record.[facility]
--- OUTSIDE RECORDS SUMMARY | 2025-09-05 01:08 | XMS_ITS | Encounter Summary ---
Author Organization [facility] Address [address] [facility] [address] [address] [place] [address] Phone Care Team Providers Care Web Design Intern Name Role Phone Pardeep Du MD Primary Care Provider [phone] Pardeep Du MD Unavailable [phone] Jessie Smith RN Unavailable [phone] Delilah Cervantes DO Primary Care Provider Kirstin Reyes Primary Care Provide r Encounter Details Date Type Department Care Team (Late st Contact Info) Description 10/04/2021 Procedure Pass [facility], [facility] [address] [place] [address] Social History Tobacco Use Types Packs/Day Years [...] documented as of this encounter Care Teams Web Design Intern Relationship Specialty Start Date End Date Pardeep Du MD [address] [place] [address], 2nd [place] [address] francisco PCP - General Internal Medicine 04/01/19 05/18/24 Delilah Cervantes DO [address] [place] [address] PCP - General Family Medicine 05/19/24 05/02/25 Kirstin Reyes PA [address] [place] [address] [place] [address] PCP - General Physician Senior Sustainability Advisor 05/03/25 Pardeep Du MD [address] [place] [address], 2nd [place] [address] francisco [email or web address] Insurance Assigned Provider 08/08/19 07/06/23 Jessie Smith, RN [address] [place] [address] [email or web address] PHCM Machine Striper 12/12/22 01/24/23 documented as of this encounter Additional Source Comments The information contained in this document represents components of the legal health record. It is not the complete legal health record.[facility]
--- OUTSIDE RECORDS SUMMARY | 2025-09-05 01:08 | XMS_ITS | Encounter Summary ---
Author Organization [facility] Address [address] [facility] [address] [place] [address] Phone Care Team Providers Care Circus Laborer Name Role Phone Pardeep Du MD Primary Care Provider [phone] Pardeep Du MD Unavailable [phone] Jessie Smith RN Unavailable [phone] Delilah Cervantes DO Primary Care Provider Kirstin Reyes Primary Care Provide r Encounter Details Date Type Department Care Team (Late st Contact Info) Description 09/16/2019 Ancillary Orders [facility],Outside Imaging 30 [place], [place] [id number] System, Provider Not In, PhD Partners [address] [address] Social History Tobacco Use Types Packs/Day Years [...] education for yourself related to: Learning the Burmese language? Completing high school, earning a high [...] documented as of this encounter Care Teams Circus Laborer Relationship Specialty Start Date End Date Pardeep Du MD [address] [place] [address], [address] [place] [address] francisco PCP - General Internal Medicine 04/01/19 05/18/24 Delilah Cervantes DO [address] [place] [address] PCP - General Family Medicine 05/19/24 05/02/25 Kirstin Reyes PA [address] [place] [address] [place] [address] PCP - General Physician Net Software Architect 05/03/25 Pardeep Du MD [address] [place] [address] francisco Insurance Assigned Provider 08/08/19 07/06/23 Jessie Smith, RN [address] [place] [address] PHCM Freight Sorter 12/12/22 01/24/23 documented as of this encounter Additional Source Comments The information contained in this document represents components of the legal health record. It is not the complete legal health record.[facility]
--- OUTSIDE RECORDS SUMMARY | 2025-09-05 01:08 | XMS_ITS | Encounter Summary ---
Author Organization [facility] Address [address] [facility] [address] [place] [address] Phone Care Team Providers Care Welder Shielded Metal Arc Name Role Phone Pardeep Du MD Primary Care Provider [phone]- [phone] Pardeep Du MD Unavailable [phone] Jessie Smith RN Unavailable [phone] Delilah Cervantes DO Primary Care Provider Kirstin Reyes Primary Care Provide r Encounter Details Date Type Department Care Team (Late st Contact Info) Description 03/23/2021 Procedure Pass [facility], [address] [place] [address] Social History Tobacco Use Types Packs/Day Years [...] documented as of this encounter Care Teams Welder Shielded Metal Arc Relationship Specialty Start Date End Date Pardeep Du MD [address] [place] [address], 2nd [place] [address] francisco PCP - General Internal Medicine 04/01/19 05/18/24 Delilah Cervantes DO [address] [place] [address] PCP - General Family Medicine 05/19/24 05/02/25 Kirstin Reyes PA [address] [place] [address] [place] [address] PCP - General Physician Package Collector 05/03/25 Pardeep Du MD [address] [place] [address], 2nd [place] [address] francisco Insurance Assigned Provider 08/08/19 07/06/23 Jessie Smith, RN [address] [place] [address] PHCM Bridge Ironworker Helper 12/12/22 01/24/23 documented as of this encounter Additional Source Comments The information contained in this document represents components of the legal health record. It is not the complete legal health record.[facility]
--- OUTSIDE RECORDS SUMMARY | 2025-09-05 01:08 | XMS_ITS | Encounter Summary ---
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 Derangement of anterior horn of lateral [...] documented as of this encounter Care Teams Auto Body Estimator Relationship Specialty Start Date End Date Pardeep Du MD [address] [place] [address], [address] [place] [address] francisco PCP - General Internal Medicine 04/01/19 05/18/24 Delilah Cervantes DO [address] [place] [address] [place] [address] PCP - General Family Medicine 05/19/24 05/02/25 Kirstin Reyes PA [address] [place] [address] [place] [address] PCP - General Physician Train Director 05/03/25 Pardeep Du MD [address] [place] [address], [address] [place] [address] francisco Insurance Assigned Provider 08/08/19 07/06/23 Jessie Smith, MEGHAN [address] [place] [address] PHCM Rigger Apprentice 12/12/22 01/24/23 documented as of this encounter Additional Source Comments The information contained in this document represents components of the legal health record. It is not the complete legal health record.[facility]
--- OUTSIDE RECORDS SUMMARY | 2025-09-05 01:08 | XMS_ITS | Encounter Summary ---
Author Organization [facility] Address [address] [facility] [address] [place] [address] Phone Care Team Providers Care Net Development Manager Name Role Phone Pardeep Du MD Primary Care Provider [phone] Pardeep Du MD Unavailable [phone] Jessie Smith RN Unavailable [phone] Delilah Cervantes DO Primary Care Provider Kirstin Reyes Primary Care Provide r Encounter Details Date Type Department Care Team (Late st Contact Info) Description 06/20/2022 Procedure Pass [place] Admitting Dept - Virtual Department 30 [place] [address] Social History Tobacco Use Types Packs/Day Years [...] education for yourself related to: Learning the Malaysian language? Completing high school, earning a high [...] documented as of this encounter Care Teams Net Development Manager Relationship Specialty Start Date End Date Pardeep Du MD [address] [place] [address], 2nd [place] [address] francisco PCP - General Internal Medicine 04/01/19 05/18/24 Delilah Cervantes DO [address] [place] [address] PCP - General Family Medicine 05/19/24 05/02/25 Kirstin Reyes PA NPI: [id number] [place] [address] [place] [address] PCP - General Physician Marine Water Tender 05/03/25 Pardeep Du MD [address] [place] [address], 2nd [place] [address] francisco [email or web address] Insurance Assigned Provider 08/08/19 07/06/23 Jessie Smith, RN [address] [place] [address] [email or web address] PHCM Sports Equipment Supervisor 12/12/22 01/24/23 documented as of this encounter Additional Source Comments The information contained in this document represents components of the legal health record. It is not the complete legal health record.[facility]
--- OUTSIDE RECORDS SUMMARY | 2025-09-05 01:08 | XMS_ITS | Encounter Summary ---
Author Organization [facility] Address [address] [facility] [address] [place] [address] Phone Care Team Providers Care Telephone Technician Name Role Phone Pardeep Du MD Primary Care Provider Pardeep Du MD Unavailable Jessie Smith RN Unavailable [phone] Delilah Cervantes DO Primary Care Provider Kirstin Reyes Primary Care Provide r Encounter Details Date Type Department Care Team (Late st Contact Info) Description 09/13/2021 Transcribe Orders Virtual Department 30 [place] [address] Pardeep Du MD [address] [facility], 2nd [place] [address] francisco [email or web address] Social History Tobacco Use Types Packs/Day Years [...] education for yourself related to: Learning the Turkish language? Completing high school, earning a high [...] documented as of this encounter Care Teams Telephone Technician Relationship Specialty Start Date End Date Pardeep Du MD [address] [place] [address], 2nd [place] [address] francisco [email or web address] PCP - General Internal Medicine 04/01/19 05/18/24 Delilah Cervantes DO [address] [place] [address] PCP - General Family Medicine 05/19/24 05/02/25 Kirstin Reyes PA [address] [place] [address] [place] [address] PCP - General Physician Travel Ticketing Reviewer 05/03/25 Pardeep Du MD [address] [place] [address], 2nd [place] [address] francisco [email or web address] Insurance Assigned Provider 08/08/19 07/06/23 Jessie Smith, RN [address] [place] [address] [email or web address] PHCM Cable Strander 12/12/22 01/24/23 documented as of this encounter Additional Source Comments The information contained in this document represents components of the legal health record. It is not the complete legal health record.[facility]
--- OUTSIDE RECORDS SUMMARY | 2025-09-05 01:08 | XMS_ITS | Encounter Summary ---
Author Organization [facility] Address [address] [facility] [address] [place] [address] Phone Care Team Providers Care Disability Services Coordinator Name Role Phone Pardeep Du MD Primary Care Provider [phone] Pardeep Du MD Unavailable [phone] Jessie Smith RN Unavailable [phone] Delilah Cervantes DO Primary Care Provider Kirstin Reyes Primary Care Provide r Encounter Details Date Type Department Care Team (Late st Contact Info) Description 06/02/2019 Procedure Pass [facility], [address] [place] [address] Social History Tobacco Use Types Packs/Day Years [...] documented as of this encounter Care Teams Disability Services Coordinator Relationship Specialty Start Date End Date Pardeep Du MD [address] [place] [address], 2nd [place] [address] francisco [email or web address] PCP - General Internal Medicine 04/01/19 05/18/24 Delilah Cervantes DO [address] [place] [address] PCP - General Family Medicine 05/19/24 05/02/25 Kirstin Reyes PA [address] [place] [address] [place] [address] PCP - General Physician Hat Former 05/03/25 Pardeep Du MD [address] [place] [address], 2nd [place] [address] francisco [email or web address] Insurance Assigned Provider 08/08/19 07/06/23 Jessie Smith, RN [address] [place] [address] [email or web address] PHCM Work Force Advisor 12/12/22 01/24/23 documented as of this encounter Additional Source Comments The information contained in this document represents components of the legal health record. It is not the complete legal health record.[facility]
--- OUTSIDE RECORDS SUMMARY | 2025-09-05 01:08 | XMS_ITS | Encounter Summary ---
Author Organization [facility] Address [address] [facility] [address] [place] [address] Phone Care Team Providers Care Nurse Transition Name Role Phone Pardeep Du MD Primary Care Provider [phone]- [phone] Pardeep Du MD Unavailable [phone] Jessie Smith RN Unavailable [phone] Delilah Cervantes DO Primary Care Provider Kirstin Reyes Primary Care Provide r Encounter Details Date Type Department Care Team (Late st Contact Info) Description 09/16/2019 Ancillary Orders [facility],Outside Imaging 30 [place], [place] [id number] System, Provider Not In, PhD Partners [address] [address] Social History Tobacco Use Types Packs/Day Years [...] yourself related to: Learning the [place] language? Completing high school, earning a high [...] documented as of this encounter Care Teams Nurse Transition Relationship Specialty Start Date End Date Pardeep Du MD [address] [place] [address], [address] [place] [address] [email or web address] PCP - General Internal Medicine 04/01/19 05/18/24 Delilah Cervantes DO [address] [place] [address] PCP - General Family Medicine 05/19/24 05/02/25 Kirstin Reyes PA [address] [place] [address] [place] [address] PCP - General Physician Door Trimmer 05/03/25 Pardeep Du MD [address] [place] [address], [address] [place] [address] francisco Insurance Assigned Provider 08/08/19 07/06/23 Jessie Smith, RN [address] [place] [address] PHCM Supervisor Treating And Pumping 12/12/22 01/24/23 documented as of this encounter Additional Source Comments The information contained in this document represents components of the legal health record. It is not the complete legal health record.[facility]
--- OUTSIDE RECORDS SUMMARY | 2025-09-05 01:08 | XMS_ITS | Encounter Summary ---
Author Organization [facility] Address [address] [facility] [address] [place] [address] Phone Care Team Providers Care Rug Clipper Name Role Phone Pardeep Du MD Primary Care Provider [phone] Pardeep Du MD Unavailable [phone] Jessie Smith RN Unavailable [phone] Delilah Cervantes DO Primary Care Provider Kirstin Reyes Primary Care Provide r Encounter Details Date Type Department Care Team (Late st Contact Info) Description 09/16/2019 Ancillary Orders [facility],Outside Imaging 30 [place], [place] [id number] System, Provider Not In, PhD Partners [address] [address] Social History Tobacco Use Types Packs/Day Years [...] education for yourself related to: Learning the Danish language? Completing high school, earning a high [...] documented as of this encounter Care Teams Rug Clipper Relationship Specialty Start Date End Date Pardeep Du MD [address] [place] [address], [address] [place] [address] francisco PCP - General Internal Medicine 04/01/19 05/18/24 Delilah Cervantes DO [address] [place] [address] PCP - General Family Medicine 05/19/24 05/02/25 Kirstin Reyes PA [address] [place] [address] [place] [address] PCP - General Physician Cushion Assembler 05/03/25 Pardeep Du MD [address] [place] [address] francisco Insurance Assigned Provider 08/08/19 07/06/23 Jessie Smith, RN [address] [place] [address] PHCM Citrix Engineer 12/12/22 01/24/23 documented as of this encounter Additional Source Comments The information contained in this document represents components of the legal health record. It is not the complete legal health record.[facility]
--- OUTSIDE RECORDS SUMMARY | 2025-09-05 01:08 | XMS_ITS | Encounter Summary ---
Author Organization [facility] Address [address] [facility] [address] [place] [address] Phone Care Team Providers Care Estate Planning Paralegal Name Role Phone Pardeep Du MD Primary Care Provider Pardeep Du MD Unavailable [phone] Jessie Smith RN Unavailable [phone] Delilah Cervantes DO Primary Care Provider [phone] Kirstin Reyes Primary Care Provide r Encounter Details Date Type Department Care Team (Late st Contact Info) Description 03/05/2022 Procedure Pass [facility], Ct Scan - [address] [address] Social History Tobacco Use Types Packs/Day Years [...] education for yourself related to: Learning the French language? Completing high school, earning a high [...] 1:02 PM EDT Drake Cha, MEGHAN * [place] Suicide Severity Rating Scale (Screener/Recent Self-Report) Question [...] documented as of this encounter Care Teams Estate Planning Paralegal Relationship Specialty Start Date End Date Pardeep Du MD [address] [place] [address], 2nd [place] [address] francisco [email or web address] PCP - General Internal Medicine 04/01/19 05/18/24 Delilah Cervantes DO [address] [place] [address] PCP - General Family Medicine 05/19/24 05/02/25 Kirstin Reyes PA [address] [place] [address] [place] [address] PCP - General Physician Cigarette Seller 05/03/25 Pardeep Du MD [address] [place] [address], [address] [place] [address] francisco Insurance Assigned Provider 08/08/19 07/06/23 Jessie Smith, RN [address] [place] [address] PHCM Secondary Social Studies Teacher 12/12/22 01/24/23 documented as of this encounter Additional Source Comments The information contained in this document represents components of the legal health record. It is not the complete legal health record.[facility]
--- OUTSIDE RECORDS SUMMARY | 2025-09-05 01:08 | XMS_ITS | Encounter Summary ---
Author Organization [facility] Address [address] [facility] [address] [place] [address] Phone Care Team Providers Care Pharmacy Intake Coordinator Name Role Phone Pardeep Du MD Primary Care Provider [phone] Pardeep Du MD Unavailable [phone] Jessie Smith RN Unavailable [phone] Delilah Cervantes DO Primary Care Provider Kirstin Reyes Primary Care Provide r Encounter Details Date Type Department Care Team (Late st Contact Info) Description 09/16/2019 Ancillary Orders [facility],Outside Imaging 30 [place], [place] [phone] System, Provider Not In, PhD Partners [address] [address] Social History Tobacco Use Types Packs/Day Years [...] documented as of this encounter Care Teams Pharmacy Intake Coordinator Relationship Specialty Start Date End Date Pardeep Du MD [address] [place] [address], [address] [place] [address] francisco [email or web address] PCP - General Internal Medicine 04/01/19 05/18/24 Delilah Cervantes DO [address] [place] [address] PCP - General Family Medicine 05/19/24 05/02/25 Kirstin Reyes PA [address] [place] [address] [place] [address] PCP - General Physician Coat Fitter 05/03/25 Pardeep Du MD [address] [place] [address], [address] [place] [address] francisco Insurance Assigned Provider 08/08/19 07/06/23 Jessie Smith, RN [address] [place] [address] PHCM Engagement Specialist 12/12/22 01/24/23 documented as of this encounter Additional Source Comments The information contained in this document represents components of the legal health record. It is not the complete legal health record.[facility]
--- OUTSIDE RECORDS SUMMARY | 2025-09-05 01:08 | XMS_ITS | Encounter Summary ---
Author Organization [facility] Address [address] [facility] [address] [place] [address] Phone Care Team Providers Care Technical Sales Support Manager Name Role Phone Pardeep Du MD Primary Care Provider Pardeep Du MD Unavailable [phone] Jessie Smith RN Unavailable [phone] Delilah Cervantes DO Primary Care Provider Kirstin Reyes Primary Care Provide r Encounter Details Date Type Department Care Team (Late st Contact Info) Description 08/07/2021 Procedure Pass [facility], Ct Scan - [address] [address] Social History Tobacco Use Types Packs/Day Years [...] 7:48 PM EDT Aniyah Price RN * [place] Suicide Severity Rating Scale (Screener/Recent Self-Report) Question [...] documented as of this encounter Care Teams Technical Sales Support Manager Relationship Specialty Start Date End Date Pardeep Du MD [address] [place] [address], [address] [place] [address] [email or web address] PCP - General Internal Medicine 04/01/19 05/18/24 Delilah Cervantes DO [address] [place] [address] PCP - General Family Medicine 05/19/24 05/02/25 Kirstin Reyes PA [address] [place] [address] [place] [address] PCP - General Physician Guest Advisor 05/03/25 Pardeep Du MD [address] [place] [address] francisco Insurance Assigned Provider 08/08/19 07/06/23 Jessie Smith, RN [address] [place] [address] [email or web address] PHCM Water Softener Installer 12/12/22 01/24/23 documented as of this encounter Additional Source Comments The information contained in this document represents components of the legal health record. It is not the complete legal health record.[facility]
--- OUTSIDE RECORDS SUMMARY | 2025-09-05 01:08 | XMS_ITS | Encounter Summary ---
Author Organization [facility] Address [address] [facility] [address] [place] [address] Phone Care Team Providers Care Computer Designer Name Role Phone Pardeep Du MD Primary Care Provider [phone] Pardeep Du MD Unavailable [phone] Jessie Smith RN Unavailable [phone] Delilah Cervantes DO Primary Care Provider Kirstin Reyes Primary Care Provide r Encounter Details Date Type Department Care Team (Late st Contact Info) Description 02/28/2022 Procedure Pass [facility] - [address] [place] [address] Social History Tobacco Use Types Packs/Day Years [...] as of this encounter Care Teams Computer Designer Relationship Specialty Start Date End Date Pardeep Du MD [address] [place] [address], 2nd [place] [address] francisco PCP - General Internal Medicine 04/01/19 05/18/24 Delilah Cervantes DO [address] [place] [address] PCP - General Family Medicine 05/19/24 05/02/25 Kirstin Reyes PA [address] [place] [address] [place] [address] PCP - General Physician Food Service Tray Attendant 05/03/25 Pardeep Du MD [address] [place] [address], 2nd [place] [address] francisco [email or web address] Insurance Assigned Provider 08/08/19 07/06/23 Jessie Smith, RN [address] [place] [address] [email or web address] PHCM Architectural Superintendent 12/12/22 01/24/23 documented as of this encounter Additional Source Comments The information contained in this document represents components of the legal health record. It is not the complete legal health record.[facility]
--- OUTSIDE RECORDS SUMMARY | 2025-09-05 01:08 | XMS_ITS | Encounter Summary ---
Author Organization [facility] Address [address] [facility] [address] [place] [address] Phone Care Team Providers Care Mental Health Therapist Name Role Phone Pardeep Du MD Primary Care Provider Delilah Cervantes DO Primary Care Provider [phone] Kirstin Reyes Primary Care Provide r Encounter Details Date Type Department Care Team (Late st Contact Info) Description 11/29/2023 Procedure Pass [facility], [address] [id number] Social History Tobacco Use Types Packs/Day Years [...] documented as of this encounter Care Teams Mental Health Therapist Relationship Specialty Start Date End Date Pardeep Du MD [address] [place] [address], 2nd [place] [address] francisco PCP - General Internal Medicine 04/01/19 05/18/24 Delilah Cervantes DO [address] [place] [address] PCP - General Family Medicine 05/19/24 05/02/25 Kirstin Reyes PA [address] [place] [address] [place] [address] PCP - General Physician Material Control Manager 05/03/25 documented as of this encounter Additional Source Comments The information contained in this document represents components of the legal health record. It is not the complete legal health record.[facility]
--- OUTSIDE RECORDS SUMMARY | 2025-09-05 01:08 | XMS_ITS | Encounter Summary ---
Author Organization [facility] Address [address] [facility] [address] [place] [address] Phone Care Team Providers Care Table Saw Operator Name Role Phone Pardeep Du MD Primary Care Provider Pardeep Du MD Unavailable [phone] Jessie Smith RN Unavailable [phone] Delilah Cervantes DO Primary Care Provider [phone] Kirstin Reyes Primary Care Provide r Encounter Details Date Type Department Care Team (Late st Contact Info) Description 12/09/2022 Procedure Pass [facility] [address] [place] [address] Social History Tobacco Use Types Packs/Day Years [...] education for yourself related to: Learning the Turkmen language? Completing high school, earning a high [...] documented as of this encounter Care Teams Table Saw Operator Relationship Specialty Start Date End Date Pardeep Du MD [address] [place] [address], 2nd [place] [address] francisco PCP - General Internal Medicine 04/01/19 05/18/24 Delilah Cervantes DO [address] [place] [address] PCP - General Family Medicine 05/19/24 05/02/25 Kirstin Reyes PA [address] [place] [address] [place] [address] PCP - General Physician Gamb Cutter 05/03/25 Pardeep Du MD [address] [place] [address], 2nd [place] [address] francisco [email or web address] Insurance Assigned Provider 08/08/19 07/06/23 Jessie Smith, RN [address] [place] [address] [email or web address] PHCM Coil Taper 12/12/22 01/24/23 documented as of this encounter Additional Source Comments The information contained in this document represents components of the legal health record. It is not the complete legal health record.[facility]
--- OUTSIDE RECORDS SUMMARY | 2025-09-05 01:08 | XMS_ITS | Encounter Summary ---
Author Organization [facility] Address [address] [facility] [address] [place] [address] Phone Care Team Providers Care Corporation Lawyer Name Role Phone Pardeep Du MD Primary Care Provider [phone] Pardeep Du MD Unavailable [phone] Jessie Smith RN Unavailable [phone] Delilah Cervantes DO Primary Care Provider Kirstin Reyes Primary Care Provide r Encounter Details Date Type Department Care Team (Late st Contact Info) Description 05/10/2020 Procedure Pass [facility], [address] [place] [address] Social History Tobacco Use Types Packs/Day Years [...] education for yourself related to: Learning the Tanzanian language? Completing high school, earning a high [...] documented as of this encounter Care Teams Corporation Lawyer Relationship Specialty Start Date End Date Pardeep Du MD [address] [place] [address], 2nd [place] [address] francisco PCP - General Internal Medicine 04/01/19 05/18/24 Delilah Cervantes DO [address] [place], [place] [address] [address] PCP - General Family Medicine 05/19/24 05/02/25 Kirstin Reyes PA [address] [place] [address] [place] [address] PCP - General Physician Bet Taker 05/03/25 Pardeep Du MD [address] [place] [address], [address] [place] [address] francisco Insurance Assigned Provider 08/08/19 07/06/23 Jessie Smith, RN [address] [place] [address] [email or web address] PHCM University Dean 12/12/22 01/24/23 documented as of this encounter Additional Source Comments The information contained in this document represents components of the legal health record. It is not the complete legal health record.[facility]
--- OUTSIDE RECORDS SUMMARY | 2025-09-05 01:08 | XMS_ITS | Encounter Summary ---
Author Organization [facility] Address [address] [facility] [address] [place] [address] Phone Care Team Providers Care Behavioral Scientist Name Role Phone Helen Delilah Primary Care Provider [phone] Kirstin Reyes Primary Care Provide r Encounter Details Date Type Department Care Team (Latest Contact Info) Description 08/06/2024 Transcribe Orders Virtual Department 30 [place] [address] Gilda Carranza PA-C [address] [place] [address] [email or web address] Lesion of ovary (Primary Dx) Social History [...] documented as of this encounter Care Teams Behavioral Scientist Relationship Specialty Start Date End Date Delilah Cervantes DO [address] [place] [address] [place] [address] PCP - General Family Medicine 05/19/24 05/02/25 Kirstin Reyes PA [address] [place] [address] [place] [address] PCP - General Physician Weigh And Charge Worker 05/03/25 documented as of this encounter Additional Source Comments The information contained in this document represents components of the legal health record. It is not the complete legal health record.[facility]
--- OUTSIDE RECORDS SUMMARY | 2025-09-05 01:08 | XMS_ITS | Encounter Summary ---
Author Organization [facility] Address [address] [facility] [address] [place] [address] Phone Care Team Providers Care Vegetable Thinner Name Role Phone Pardeep Du MD Primary Care Provider [phone] Pardeep Du MD Unavailable [phone] Jessie Smith RN Unavailable [phone] Delilah Cervantes DO Primary Care Provider Kirstin Reyes Primary Care Provide r Encounter Details Date Type Department Care Team (Late st Contact Info) Description 02/28/2022 Procedure Pass [facility] - [address] [place] [address] Social History Tobacco Use Types Packs/Day Years [...] as of this encounter Care Teams Vegetable Thinner Relationship Specialty Start Date End Date Pardeep Du MD [address] [place] [address], 2nd [place] [address] francisco PCP - General Internal Medicine 04/01/19 05/18/24 Delilah Cervantes DO [address] [place] [address] PCP - General Family Medicine 05/19/24 05/02/25 Kirstin Reyes PA [address] [place] [address] [place] [address] PCP - General Physician Justice Of The Peace 05/03/25 Pardeep Du MD [address] [place] [address], 2nd [place] [address] francisco [email or web address] Insurance Assigned Provider 08/08/19 07/06/23 Jessie Smith, RN [address] [place] [address] [email or web address] PHCM Straight Line Edger 12/12/22 01/24/23 documented as of this encounter Additional Source Comments The information contained in this document represents components of the legal health record. It is not the complete legal health record.[facility]
[2025-09-05 01:33] VITALS: BP 175/84; PULSE 64; RESP 18; TEMP 36.6; O2SAT 96
== END 2025-09-05 01:34 | disposition home or self-care (01) ==
PROVIDERS: Emergency Provider Emergency Medicine
DX: M54.50 Low back pain, unspecified (principal); Z87.891 Personal history of nicotine dependence
CPT/HCPCS: 36415; 80053; 81001; 85025; 87086; 96372; 99284; J1885

== ENCOUNTER 2025-09-09 07:20 | Outpatient (REF) | payer OTHER, SELFPAY ==
--- OUTSIDE RECORDS SUMMARY | 2025-09-09 07:23 | XMS_ITS | Encounter Summary ---
Author Organization [facility] Address [address] [facility] [address] [place] [address] Phone Care Team Providers Care Auto Finance Sales Rep Name Role Phone Pardeep Du MD Primary Care Provider [phone] Pardeep Du MD Unavailable [phone] Jessie Smith RN Unavailable [phone] Delilah Cervantes DO Primary Care Provider Kirstin Reyes Primary Care Provide r Encounter Details Date Type Department Care Team (Late st Contact Info) Description 10/18/2020 Procedure Pass [facility] - [address] [place] [address] Social History Tobacco Use Types Packs/Day Years [...] education for yourself related to: Learning the Indian language? Completing high school, earning a high [...] as of this encounter Care Teams Auto Finance Sales Rep Relationship Specialty Start Date End Date Pardeep Du MD [address] [place] [address], 2nd [place] [address] francisco PCP - General Internal Medicine 04/01/19 05/18/24 Delilah Cervantes DO [address] [place] [address] PCP - General Family Medicine 05/19/24 05/02/25 Kirstin Reyes PA [address] [place] [address] [place] [address] PCP - General Physician Vulcanizer Operator 05/03/25 Pardeep Du MD [address] [place] [address], 2nd [place] [address] francisco [email or web address] Insurance Assigned Provider 08/08/19 07/06/23 Jessie Smith, RN 10 [place] [address] [email or web address] PHCM Housing Relocation 12/12/22 01/24/23 documented as of this encounter Additional Source Comments The information contained in this document represents components of the legal health record. It is not the complete legal health record.[facility]
--- OUTSIDE RECORDS SUMMARY | 2025-09-09 07:23 | XMS_ITS | Encounter Summary ---
Author Organization [facility] Address [address] [facility] [address] [place] [address] Phone Care Team Providers Care Group Dynamics Instructor Name Role Phone Pardeep Du MD Primary Care Provider [phone] Pardeep Du MD Unavailable [phone] Jessie Smith RN Unavailable [phone] Delilah Cervantes DO Primary Care Provider Kirstin Reyes Primary Care Provide r Encounter Details Date Type Department Care Team (Late st Contact Info) Description 10/18/2020 Procedure Pass [facility] - [address] [place] [address] Social History Tobacco Use Types Packs/Day Years [...] education for yourself related to: Learning the Swedish language? Completing high school, earning a high [...] documented as of this encounter Care Teams Group Dynamics Instructor Relationship Specialty Start Date End Date Pardeep Du MD [address] [place] [address], 2nd [place] [address] francisco PCP - General Internal Medicine 04/01/19 05/18/24 Delilah Cervantes DO [address] [place] [address] PCP - General Family Medicine 05/19/24 05/02/25 Kirstin Reyes PA [address] [place] [address] [place] [address] PCP - General Physician Boot Trimmer 05/03/25 Pardeep Du MD [address] [place] [address], 2nd [place] [address] francisco Insurance Assigned Provider 08/08/19 07/06/23 Jessie Smith, RN [address] [place] [address] [email or web address] PHCM Automatic Dry Starch Operator 12/12/22 01/24/23 documented as of this encounter Additional Source Comments The information contained in this document represents components of the legal health record. It is not the complete legal health record.[facility]
--- OUTSIDE RECORDS SUMMARY | 2025-09-09 07:23 | XMS_ITS | Encounter Summary ---
Author Organization [facility] Address [address] [facility] [address] [place] [address] Phone Care Team Providers Care Elementary School Professional Name Role Phone Pardeep Du MD Primary Care Provider [phone] Pardeep Du MD Unavailable Jessie Smith RN Unavailable [phone] Delilah Cervantes DO Primary Care Provider Kirstin Reyes Primary Care Provide r Encounter Details Date Type Department Care Team (Late st Contact Info) Description 05/04/2019 Ancillary Orders [facility] [address] [place] [address] [place] [address] Andrew Alberto MD [address] [place] [address] [place] [address] [email or web address] Pain in both knees, unspecified [...] education for yourself related to: Learning the Surinamese language? Completing high school, earning a high [...] to medium sized joint effusion. POS - [id number] Narrative 05/04/2019 1:28 PM EDT Left knee [...] to medium sized joint effusion. POS - [id number] Andrew Alberto MD IMG XR LOWER EXTREMITY F inal Result * XR KNEE 4 OR MORE VIEWS (RIGHT) (05/04/2019 1:07 PM EDT) Anatomical Region Laterality Modality Knee Right Radiographic Jesika ging 05/04/2019 1:27 PM EDT Impressions 05/04/2019 1:28 PM EDT Moderate medial compartment osteoarthritis. No erosive changes or bony lesion seen. Prominent joint effusion. POS - [id number] Narrative 05/04/2019 1:28 PM EDT Right knee [...] bonylesion seen. Prominent joint effusion. POS - [id number] Andrew Alberto MD IMG XR LOWER EXTREMITY [...] documented as of this encounter Care Teams Elementary School Professional Relationship Specialty Start Date End Date Pardeep Du MD [address] [place] [address], 2nd [place] [address] francisco PCP - General Internal Medicine 04/01/19 05/18/24 Delilah Cervantes DO [address] [place] [address] PCP - General Family Medicine 05/19/24 05/02/25 Kirstin Reyes PA [address] [place] [address] PCP - General Physician Product Consultant 05/03/25 Pardeep Du MD [address] [place] [address], [address] [place] [address] francisco Insurance Assigned Provider 08/08/19 07/06/23 Jessie Smith, RN [address] [place] [address] PHCM Ic Designer [employer] 12/12/22 01/24/23 documented as of this encounter Additional Source Comments The information contained in this document represents components of the legal health record. It is not the complete legal health record.[facility]
--- OUTSIDE RECORDS SUMMARY | 2025-09-09 07:24 | XMS_ITS | Encounter Summary ---
Author Organization [facility] Address [address] [facility] [address] [place] [address] Phone Care Team Providers Care Respiratory Equipment Assistant Name Role Phone Pardeep Du MD Primary Care Provider [phone] Pardeep Du MD Unavailable [phone] Jessie Smith RN Unavailable [phone] Delilah Cervantes DO Primary Care Provider Kirstin Reyes Primary Care Provide r Encounter Details Date Type Department Care Team (Late st Contact Info) Description 03/23/2021 Procedure Pass [facility], [address] [place] [address] Social History Tobacco Use Types Packs/Day Years [...] education for yourself related to: Learning the Prydein[place] language? Completing high school, earning a high [...] documented as of this encounter Care Teams Respiratory Equipment Assistant Relationship Specialty Start Date End Date Pardeep Du MD [address] [place] [address], 2nd [place] [address] francisco PCP - General Internal Medicine 04/01/19 05/18/24 Delilah Cervantes DO [address] [place] [address] PCP - General Family Medicine 05/19/24 05/02/25 Kirstin Reyes PA [address] [place] [address] [place] [address] PCP - General Physician Chair Car Attendant 05/03/25 Pardeep Du MD [address] [place] [address], 2nd [place] [address] francisco Insurance Assigned Provider 08/08/19 07/06/23 Jessie Smith, RN 10 [place] [address] [email or web address] PHCM Field Crop Harvest Worker 12/12/22 01/24/23 documented as of this encounter Additional Source Comments The information contained in this document represents components of the legal health record. It is not the complete legal health record.[facility]
--- OUTSIDE RECORDS SUMMARY | 2025-09-09 07:24 | XMS_ITS | Encounter Summary ---
Author Organization [facility] Address [address] [facility] [address] [place] [address] Phone Care Team Providers Care Pocket Operator Name Role Phone Pardeep Du MD Primary Care Provider [phone] Pardeep Du MD Unavailable [phone] Jessie Smith RN Unavailable [phone] Delilah Cervantes DO Primary Care Provider Kirstin Reyes Primary Care Provide r Encounter Details Date Type Department Care Team (Late st Contact Info) Description 04/06/2022 Procedure Pass [facility] Endoscopy Admitting Dept Virtual Department 30 [place], [place] [id number] Social History Tobacco Use Types Packs/Day Years [...] documented as of this encounter Care Teams Pocket Operator Relationship Specialty Start Date End Date Pardeep Du MD [address] [place] [address], 2nd [place] [address] francisco PCP - General Internal Medicine 04/01/19 05/18/24 Delilah Cervantes DO [address] [place] [address] PCP - General Family Medicine 05/19/24 05/02/25 Kirstin Reyes PA NPI: [id number] [place] [address] [place] [address] PCP - General Physician Algebraist 05/03/25 Pardeep Du MD [address] [place] [address], 2nd [place] [address] francisco [email or web address] Insurance Assigned Provider 08/08/19 07/06/23 Jessie Smith, RN [address] [place] [address] [email or web address] PHCM Government Operations Consultant 12/12/22 01/24/23 documented as of this encounter Additional Source Comments The information contained in this document represents components of the legal health record. It is not the complete legal health record.[facility]
--- OUTSIDE RECORDS SUMMARY | 2025-09-09 07:24 | XMS_ITS | Encounter Summary ---
Author Organization [facility] Address [address] [facility] [address] [place] [address] Phone Care Team Providers Care Vice President Of Compliance Name Role Phone Helen Delilah Primary Care Provider Kirstin Reyes Primary Care Provide r Encounter Details Date Type Department Care Team (Latest Contact Info) Description 08/06/2024 Transcribe Orders Virtual Department 30 [place] [address] Gilda Carranza PA-C [address] [place] [address] [email or web address] Lesion of ovary (Primary Dx) Social History [...] documented as of this encounter Care Teams Vice President Of Compliance Relationship Specialty Start Date End Date Delilah Cervantes DO [address] [place] [address] [place] [address] PCP - General Family Medicine 05/19/24 05/02/25 Kirstin Reyes PA [address] [place] [address] [place] [address] PCP - General Physician Gun Perforator Loader 05/03/25 documented as of this encounter Additional Source Comments The information contained in this document represents components of the legal health record. It is not the complete legal health record.[facility]
--- OUTSIDE RECORDS SUMMARY | 2025-09-09 07:24 | XMS_ITS | Encounter Summary ---
Author Organization [facility] Address [address] [facility] [address] [place] [address] Phone Care Team Providers Care Vasc Tech Name Role Phone Pardeep Du MD [...] PA-C Phone: tel: fax: [email or web address] Referral ID Status Reason Start Date Expiration Date Visits Re quested Visits Authorized [id number] Closed 07/07/2024 09/05/2024 1 1 Encounter Details Date Type Department Care Team (Latest Contact Info) Description 04/06/2024 Transcribe Orders Virtual Department 30 [place] [address] Gilda Carranza PA-C [address] [place] [address] [email or web address] LLQ abdominal pain (Primary Dx); Constipation, unspecified [...] documented as of this encounter Care Teams Vasc Tech Relationship Specialty Start Date End Date Pardeep Du MD [address] [place] [address], 2nd [place] [address] francisco [email or web address] PCP - General Internal Medicine 04/01/19 05/18/24 Delilah Cervantes DO [address] [place] [address] PCP - General Family Medicine 05/19/24 05/02/25 Kirstin Reyes PA [address] [place] [address] [place] [address] PCP - General Physician Inspector Technician 05/03/25 documented as of this encounter Additional Source Comments The information contained in this document represents components of the legal health record. It is not the complete legal health record.[facility]
--- OUTSIDE RECORDS SUMMARY | 2025-09-09 07:24 | XMS_ITS | Encounter Summary ---
Author Organization [facility] Address [address] [facility] [address] [place] [address] Phone Care Team Providers Care Filtration Plant Mechanic Name Role Phone Pardeep Du MD Primary Care Provider [phone] Pardeep Du MD Unavailable [phone] Jessie Smith RN Unavailable [phone] Delilah Cervantes DO Primary Care Provider Kirstin Reyes Primary Care Provide r Encounter Details Date Type Department Care Team (Late st Contact Info) Description 02/28/2022 Procedure Pass [facility] - [address] [place] [address] Social History Tobacco Use Types Packs/Day Years [...] documented as of this encounter Care Teams Filtration Plant Mechanic Relationship Specialty Start Date End Date Pardeep Du MD [address] [place] [address], 2nd [place] [address] francisco PCP - General Internal Medicine 04/01/19 05/18/24 Delilah Cervantes DO [address] [place] [address] PCP - General Family Medicine 05/19/24 05/02/25 Kirstin Reyes PA [address] [place] [address] [place] [address] PCP - General Physician Special Forces Senior Sergeant 05/03/25 Pardeep Du MD [address] [place] [address], 2nd [place] [address] francisco [email or web address] Insurance Assigned Provider 08/08/19 07/06/23 Jessie Smith, RN [address] [place] [address] [email or web address] PHCM Pulmonary Nurse Practitioner 12/12/22 01/24/23 documented as of this encounter Additional Source Comments The information contained in this document represents components of the legal health record. It is not the complete legal health record.[facility]
--- OUTSIDE RECORDS SUMMARY | 2025-09-09 07:24 | XMS_ITS | Encounter Summary ---
Author Organization [facility] Address [address] [facility] [address] [place] [address] Phone Care Team Providers Care Deputy County Clerk Name Role Phone Pardeep Du MD Primary Care Provider [phone]- [phone] Pardeep Du MD Unavailable [phone] Jessie Smith RN Unavailable [phone] Delilah Cervantes DO Primary Care Provider [phone] Kirstin Reyes Primary Care Provide r Encounter Details Date Type Department Care Team (Late st Contact Info) Description 08/07/2021 Procedure Pass [facility] Scan - [address] [address] Social History Tobacco Use Types Packs/Day Years [...] education for yourself related to: Learning the Nigerian language? Completing high school, earning a high [...] 7:48 PM EDT Aniyah Price RN * [place] Suicide Severity Rating Scale (Screener/Recent Self-Report) Question [...] documented as of this encounter Care Teams Deputy County Clerk Relationship Specialty Start Date End Date Pardeep Du MD [address] [place] [address], [address] [place] [address] PCP - General Internal Medicine 04/01/19 05/18/24 Delilah Cervantes DO [address] [place] [address] PCP - General Family Medicine 05/19/24 05/02/25 Kirstin Reyes PA [address] [place] [address] [place] [address] PCP - General Physician Business Intelligence Developer 05/03/25 Pardeep Du MD [address] [place] [address] francisco Insurance Assigned Provider 08/08/19 07/06/23 Jessie Smith, RN [address] [place] [address] [email or web address] PHCM Corn Lab Technician 12/12/22 01/24/23 documented as of this encounter Additional Source Comments The information contained in this document represents components of the legal health record. It is not the complete legal health record.[facility]
--- OUTSIDE RECORDS SUMMARY | 2025-09-09 07:24 | XMS_ITS | Encounter Summary ---
Author Organization [facility] Address [address] [place] [address] Phone Care Team Providers Care Continuous Improvement Consultant Name Role Phone Kirstin Reyes Primary Care Provide r Encounter Details Date Type Department Care Team (Late st Contact Info) Description 05/03/2025 Procedure Pass [facility] Endoscopy Admitting Dept Virtual Department 30 [place] [address] Social History Tobacco Use Types Packs/Day Years [...] documented as of this encounter Care Teams Continuous Improvement Consultant Relationship Specialty Start Date End Date Kirstin Reyes PA [address] [place] [address] [address] [place] [phone] PCP - General Physician Screen Printing Press Operator 05/03/25 documented as of this encounter Additional Source Comments The information contained in this document represents components of the legal health record. It is not the complete legal health record.[facility]
--- OUTSIDE RECORDS SUMMARY | 2025-09-09 07:24 | XMS_ITS | Encounter Summary ---
Author Organization [facility] Address [address] [place] [address] Phone Care Team Providers Care Insurance Analyst Name Role Phone Pardeep Du MD Primary Care Provider [phone]- [phone] Pardeep Du MD Unavailable [phone] Jessie Smith RN Unavailable [phone] Delilah Cervantes DO Primary Care Provider Kirstin Reyes Primary Care Provide r Encounter Details Date Type Department Care Team (Late st Contact Info) Description 03/05/2022 Procedure Pass [facility], Ct Scan - [address] [address] Social History Tobacco Use Types Packs/Day Years [...] 1:02 PM EDT Drake Cha, MEGHAN * [place] Suicide Severity Rating Scale (Screener/Recent Self-Report) Question [...] documented as of this encounter Care Teams Insurance Analyst Relationship Specialty Start Date End Date Pardeep Du MD [address] [place] [address], 2nd [place] [address] francisco [email or web address] PCP - General Internal Medicine 04/01/19 05/18/24 Delilah Cervantes DO [address] [place] [address] PCP - General Family Medicine 05/19/24 05/02/25 Kirstin Reyes PA [address] [place] [address] [place] [address] PCP - General Physician Sales Strategy Manager 05/03/25 Pardeep Du MD [address] [place] [address], 2nd [place] [address] francisco Insurance Assigned Provider 08/08/19 07/06/23 Jessie Smith, RN [address] [place] [address] PHCM Filter Washer And Presser 12/12/22 01/24/23 documented as of this encounter Additional Source Comments The information contained in this document represents components of the legal health record. It is not the complete legal health record.[facility]
--- OUTSIDE RECORDS SUMMARY | 2025-09-09 07:24 | XMS_ITS | Encounter Summary ---
Author Organization [facility] Address [address] [facility] [place] [address] Phone Care Team Providers Care Reporting Coordinator Name Role Phone Pardeep Du MD Primary Care Provider [phone] Pardeep Du MD Unavailable [phone] Jessie Smith RN Unavailable [phone] Delilah Cervantes DO Primary Care Provider Kirstin Reyes Primary Care Provide r Encounter Details Date Type Department Care Team (Late st Contact Info) Description 06/30/2019 Procedure Pass [facility], [address] [place] [address] Social History Tobacco Use Types Packs/Day Years [...] education for yourself related to: Learning the German language? Completing high school, earning a high [...] documented as of this encounter Care Teams Reporting Coordinator Relationship Specialty Start Date End Date Pardeep Du MD [address] [place] [address], 2nd [place] [address] [email or web address] PCP - General Internal Medicine 04/01/19 05/18/24 Delilah Cervantes DO [address] [place] [address] PCP - General Family Medicine 05/19/24 05/02/25 Kirstin Reyes PA [address] [place] [address] [place] [address] PCP - General Physician Compound Filler 05/03/25 Pardeep Du MD [address] [place] [address], 2nd [place] [address] francisco [email or web address] Insurance Assigned Provider 08/08/19 07/06/23 Jessie Smith, RN [address] [place] [address] [email or web address] PHCM School Office Manager 12/12/22 01/24/23 documented as of this encounter Additional Source Comments The information contained in this document represents components of the legal health record. It is not the complete legal health record.[facility]
--- OUTSIDE RECORDS SUMMARY | 2025-09-09 07:24 | XMS_ITS | Encounter Summary ---
Author Organization [facility] Address [address] [facility] [address] [facility] [address] [place] [address] Phone Care Team Providers Care Review Specialist Name Role Phone Pardeep Du MD Primary Care Provider [phone] Delilah Cervantes DO Primary Care Provider Kirstin Reyes Primary Care Provide r Encounter Details Date Type Department Care Team (Late st Contact Info) Description 04/06/2024 Procedure Pass [facility], Ct Scan - [address] [address] Social History Tobacco Use Types Packs/Day Years [...] documented as of this encounter Care Teams Review Specialist Relationship Specialty Start Date End Date Pardeep Du MD [address] [place] [address], 2nd [place] [address] francisco [email or web address] PCP - General Internal Medicine 04/01/19 05/18/24 Delilah Cervantes DO [address] [place] [address] PCP - General Family Medicine 05/19/24 05/02/25 Kirstin Reyes PA [address] [place] [address] [facility] [place] [address] PCP - General Physician Adjunct Art History Instructor 05/03/25 documented as of this encounter Additional Source Comments The information contained in this document represents components of the legal health record. It is not the complete legal health record.[facility]
--- OUTSIDE RECORDS SUMMARY | 2025-09-09 07:24 | XMS_ITS | Encounter Summary ---
Author Organization [facility] Address [address] [facility] [address] [place] [address] Phone Care Team Providers Care Check Out Cashier Name Role Phone Pardeep Du MD Primary Care Provider [phone]- [phone] Pardeep Du MD Unavailable [phone] Jessie Smith RN Unavailable [phone] Delilah Cervantes DO Primary Care Provider [phone] Kirstin Reyes Primary Care Provide r Encounter Details Date Type Department Care Team (Late st Contact Info) Description 06/20/2022 Procedure Pass [facility] Admitting Dept - Virtual Department 30 [place] [address] Social History Tobacco Use Types Packs/Day Years [...] documented as of this encounter Care Teams Check Out Cashier Relationship Specialty Start Date End Date Pardeep Du MD [address] [place] [address], 2nd [place] [address] francisco PCP - General Internal Medicine 04/01/19 05/18/24 Delilah Cervantes DO [address] [place] [address] PCP - General Family Medicine 05/19/24 05/02/25 Kirstin Reyes PA NPI: [id number] [place] [address] [place] [address] PCP - General Physician Sheriff Sergeant 05/03/25 Pardeep Du MD [address] [place] [address], 2nd [place] [address] francisco [email or web address] Insurance Assigned Provider 08/08/19 07/06/23 Jessie Smith, RN [address] [place] [address] [email or web address] PHCM Kettle Operator 12/12/22 01/24/23 documented as of this encounter Additional Source Comments The information contained in this document represents components of the legal health record. It is not the complete legal health record.[facility]
--- OUTSIDE RECORDS SUMMARY | 2025-09-09 07:24 | XMS_ITS | Encounter Summary ---
Author Organization [facility] Address [address] [facility] [address] [place] [address] Phone Care Team Providers Care Multi Slide Machine Tender Name Role Phone Pardeep Du MD Primary Care Provider [phone]- [phone] Pardeep Du MD Unavailable [phone] Jessie Smith RN Unavailable [phone] Delilah Cervantes DO Primary Care Provider Kirstin Reyes Primary Care Provide r Encounter Details Date Type Department Care Team (Late st Contact Info) Description 12/17/2022 Procedure Pass [facility], [address] [place] [address] Social History Tobacco Use Types Packs/Day Years [...] documented as of this encounter Care Teams Multi Slide Machine Tender Relationship Specialty Start Date End Date Pardeep Du MD [address] [place] [address], 2nd [place] [address] francisco PCP - General Internal Medicine 04/01/19 05/18/24 Delilah Cervantes DO [address] [place] [address] PCP - General Family Medicine 05/19/24 05/02/25 Kirstin Reyes PA [address] [place] [address] [place] [address] PCP - General Physician Microarray Operations Vice President 05/03/25 Pardeep Du MD [address] [place] [address], 2nd [place] [address] francisco [email or web address] Insurance Assigned Provider 08/08/19 07/06/23 Jessie Smith, RN [address] [place] [address] [email or web address] PHCM Substance Abuse Specialist 12/12/22 01/24/23 documented as of this encounter Additional Source Comments The information contained in this document represents components of the legal health record. It is not the complete legal health record.[facility]
--- OUTSIDE RECORDS SUMMARY | 2025-09-09 07:24 | XMS_ITS | Encounter Summary ---
Author Organization [facility] Address [address] 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 Derangement of anterior horn of lateral [...] documented as of this encounter Care Teams Butt Sawyer Relationship Specialty Start Date End Date Pardeep Du MD [address] [place] [address], [address] [place] [address] francisco PCP - General Internal Medicine 04/01/19 05/18/24 Delilah Cervantes DO [address] [place] [address] [place] [address] PCP - General Family Medicine 05/19/24 05/02/25 Kirstin Reyes PA [address] [place] [address] [place] [address] PCP - General Physician Signalling And Communications Engineer 05/03/25 Pardeep Du MD [address] [place] [address], [address] [place] [address] francisco Insurance Assigned Provider 08/08/19 07/06/23 Jessie Smith, MEGHAN [address] [place] [address] PHCM Bill Hiker 12/12/22 01/24/23 documented as of this encounter Additional Source Comments The information contained in this document represents components of the legal health record. It is not the complete legal health record.[facility]
--- OUTSIDE RECORDS SUMMARY | 2025-09-09 07:24 | XMS_ITS | Encounter Summary ---
Author Organization [facility] Address [address] [facility] [address] [place] [address] Phone Care Team Providers Care Lab Manager Name Role Phone Pardeep Du MD Primary Care Provider [phone]- [phone] Pardeep Du MD Unavailable [phone] Jessie Smith RN Unavailable [phone] Delilah Cervantes DO Primary Care Provider Kirstin Reyes Primary Care Provide r Encounter Details Date Type Department Care Team (Late st Contact Info) Description 02/28/2022 Procedure Pass [facility] - [address] [place] [address] Social History Tobacco Use Types Packs/Day Years [...] education for yourself related to: Learning the Cypriot language? Completing high school, earning a high [...] documented as of this encounter Care Teams Lab Manager Relationship Specialty Start Date End Date Pardeep Du MD [address] [place] [address], 2nd [place] [address] francisco PCP - General Internal Medicine 04/01/19 05/18/24 Delilah Cervantes DO [address] [place] [address] PCP - General Family Medicine 05/19/24 05/02/25 Kirstin Reyes PA [address] [place] [address] [place] [address] PCP - General Physician Insulation Helper 05/03/25 Pardeep Du MD [address] [place] [address], 2nd [place] [address] francisco [email or web address] Insurance Assigned Provider 08/08/19 07/06/23 Jessie Smith, RN [address] [place] [address] [email or web address] PHCM Rail Car Unloader 12/12/22 01/24/23 documented as of this encounter Additional Source Comments The information contained in this document represents components of the legal health record. It is not the complete legal health record.[facility]
--- OUTSIDE RECORDS SUMMARY | 2025-09-09 07:24 | XMS_ITS | Encounter Summary ---
Author Organization [facility] Address [address] [facility] [address] [place] [address] Phone Care Team Providers Care Reserve Officer Name Role Phone Pardeep Du MD Primary Care Provider Pardeep Du MD Unavailable Jessie Smith RN Unavailable Delilah Cervantes DO Primary Care Provider Kirstin Reyes Primary Care Provide r Encounter Details Date Type Department Care Team (Late st Contact Info) Description 07/23/2019 Ancillary Orders Non-Invasive Cardiology 30 [place] [address] Pardeep Du MD [address] [facility], 2nd [place] [address] francisco [email or web address] Chest pain, unspecified type Social History Tobacco [...] education for yourself related to: Learning the Monegasque language? Completing high school, earning a high [...] AM EDT) Max BP Systolic 130 mmHg [facility] Max BP Diastolic 70 mmHg [facility] Max HR 88 BPM [facility] Resting HR 57 BPM [facility] Resting BP Systolic 126 mmHg [facility] Resting BP Diastolic 78 mmHg [facility] Peak METS 1.0 METS [facility] Peak HR 87 BPM [facility] Anatomical Region Laterality Modality Heart Other 07/23/2019 [...] of the Tc99m Sestamibi by the nuclear radiation engineer. Patient tolerated infusion without complications. Test terminated [...] documented as of this encounter Care Teams Reserve Officer Relationship Specialty Start Date End Date Pardeep Du MD [address] [place] [address], 2nd [place] [address] francisco PCP - General Internal Medicine 04/01/19 05/18/24 Delilah Cervantes DO [address] [place] [address] PCP - General Family Medicine 05/19/24 05/02/25 Kirstin Reyes PA [address] [place] [address] [place] [address] PCP - General Physician Nut Chopper 05/03/25 Pardeep Du MD [address] [place] [address], 2nd [place] [address] francisco Insurance Assigned Provider 08/08/19 07/06/23 Jessie Smith, RN [address] [place] [address] [email or web address] PHCM Pantograph Ii Engraver 12/12/22 01/24/23 documented as of this encounter Additional Source Comments The information contained in this document represents components of the legal health record. It is not the complete legal health record.[facility]
--- OUTSIDE RECORDS SUMMARY | 2025-09-09 07:24 | XMS_ITS | Encounter Summary ---
Author Organization [facility] Address [address] [place] [address] Phone Care Team Providers Care Master Printer Name Role Phone Pardeep Du MD Primary Care Provider [phone] Pardeep Du MD Unavailable [phone] Jessie Smith RN Unavailable [phone] Delilah Cervantes DO Primary Care Provider Kirstin Reyes Primary Care Provide r Encounter Details Date Type Department Care Team (Late st Contact Info) Description 09/16/2019 Ancillary Orders [facility],Outside Imaging 30 [place], [place] [id number] System, Provider Not In, [facility] [address] [address] Social History Tobacco Use Types Packs/Day Years [...] education for yourself related to: Learning the Qatari language? Completing high school, earning a high [...] documented as of this encounter Care Teams Master Printer Relationship Specialty Start Date End Date Pardeep Du MD [address] [place] [address], [address] [place] [address] francisco PCP - General Internal Medicine 04/01/19 05/18/24 Delilah Cervantes DO [address] [place] [address] PCP - General Family Medicine 05/19/24 05/02/25 Kirstin Reyes PA [address] [place] [address] [place] [address] PCP - General Physician Ordnance Artificer Helper 05/03/25 Pardeep Du MD [address] [place] [address], [address] [place] [address] francisco Insurance Assigned Provider 08/08/19 07/06/23 Jessie Smith, RN [address] [place] [address] PHCM Agricultural Research Engineer 12/12/22 01/24/23 documented as of this encounter Additional Source Comments The information contained in this document represents components of the legal health record. It is not the complete legal health record.[facility]
--- OUTSIDE RECORDS SUMMARY | 2025-09-09 07:24 | XMS_ITS | Encounter Summary ---
Author Organization [facility] Address [address] [facility] [address] [place] [address] Phone Care Team Providers Care Air Brake Operator Name Role Phone Pardeep Du MD Primary Care Provider Pardeep Du MD Unavailable Delilah Cervantes DO Primary Care Provider Kirstin Reyes Primary Care Provide r Encounter Details Date Type Department Care Team (Late st Contact Info) Description 05/06/2023 Ancillary Orders [facility] [address] [place] [address] [place] [address] Pardeep Du MD [address] [place] [address], 2nd [place] [address] francisco [email or web address] Abnormal finding on mammography Social History [...] documented as of this encounter Care Teams Air Brake Operator Relationship Specialty Start Date End Date Pardeep Du MD [address] [place] [address], 2nd [place] [address] francisco PCP - General Internal Medicine 04/01/19 05/18/24 Delilah Cervantes DO [address] [place] [address] PCP - General Family Medicine 05/19/24 05/02/25 Kirstin Reyes PA [address] [place] [address] [place] [address] PCP - General Physician Flagsetter 05/03/25 Pardeep Du MD [address] [place] [address], 2nd [place] [address] francisco [email or web address] Insurance Assigned Provider 08/08/19 07/06/23 documented as of this encounter Additional Source Comments The information contained in this document represents components of the legal health record. It is not the complete legal health record.[facility]
--- OUTSIDE RECORDS SUMMARY | 2025-09-09 07:24 | XMS_ITS | Encounter Summary ---
Author Organization [facility] Address [address] [facility] [address] [place] [address] Phone Care Team Providers Care Drawbridge Operator Name Role Phone Pardeep Du MD Primary Care Provider [phone] Pardeep Du MD Unavailable [phone] Jessie Smith RN Unavailable [phone] Delilah Cervantes DO Primary Care Provider Kirstin Reyes Primary Care Provide r Encounter Details Date Type Department Care Team (Late st Contact Info) Description 09/16/2019 Ancillary Orders [facility],Outside Imaging 30 [place], [place] [id number] System, Provider Not In, PhD Partners [address] [address] Social History Tobacco Use Types Packs/Day Years [...] documented as of this encounter Care Teams Drawbridge Operator Relationship Specialty Start Date End Date Pardeep Du MD [address] [place] [address], [address] [place] [address] francisco PCP - General Internal Medicine 04/01/19 05/18/24 Delilah Cervantes DO [address] [place] [address] PCP - General Family Medicine 05/19/24 05/02/25 Kirstin Reyes PA [address] [place] [address] [place] [address] PCP - General Physician Geological Engineer 05/03/25 Pardeep Du MD [address] [place] [address] francisco Insurance Assigned Provider 08/08/19 07/06/23 Jessie Smith, RN [address] [place] [address] PHCM Racket Stringer 12/12/22 01/24/23 documented as of this encounter Additional Source Comments The information contained in this document represents components of the legal health record. It is not the complete legal health record.[facility]
--- OUTSIDE RECORDS SUMMARY | 2025-09-09 07:24 | XMS_ITS | Encounter Summary ---
Author Organization [facility] Address [address] [facility] [address] [place] [address] Phone Care Team Providers Care Impregnator Helper Name Role Phone Pardeep Du MD Primary Care Provider [phone] Pardeep Du MD Unavailable [phone] Jessie Smith RN Unavailable [phone] Delilah Cervantes DO Primary Care Provider Kirstin Reyes Primary Care Provide r Encounter Details Date Type Department Care Team (Late st Contact Info) Description 09/16/2019 Ancillary Orders [facility],Outside Imaging 30 [place], [place] [phone] System, Provider Not In, PhD Partners [address] [address] Social History Tobacco Use Types Packs/Day Years [...] education for yourself related to: Learning the Guatemalan language? Completing high school, earning a high [...] documented as of this encounter Care Teams Impregnator Helper Relationship Specialty Start Date End Date Pardeep Du MD [address] [place] [address], [address] [place] [address] francisco [email or web address] PCP - General Internal Medicine 04/01/19 05/18/24 Delilah Cervantes DO [address] [place] [address] PCP - General Family Medicine 05/19/24 05/02/25 Kirstin Reyes PA [address] [place] [address] [place] [address] PCP - General Physician Defense Attorney 05/03/25 Pardeep Du MD [address] [place] [address], [address] [place] [phone] francisco Insurance Assigned Provider 08/08/19 07/06/23 Jessie Smith, RN [address] [place] [address] PHCM Apartment Rental Agent 12/12/22 01/24/23 documented as of this encounter Additional Source Comments The information contained in this document represents components of the legal health record. It is not the complete legal health record.[facility]
--- OUTSIDE RECORDS SUMMARY | 2025-09-09 07:24 | XMS_ITS | Encounter Summary ---
Author Organization [facility] Address [address] [facility] [address] [place] [address] Phone Care Team Providers Care Online Journalist Name Role Phone Pardeep Du MD Primary Care Provider Pardeep Du MD Unavailable Jessie Smith RN Unavailable Delilah Cervantes DO Primary Care Provider [phone] Kirstin Reyes Primary Care Provide r Encounter Details Date Type Department Care Team (Late st Contact Info) Description 09/13/2021 Transcribe Orders Virtual Department 30 [place] [address] Pardeep Du MD [address] [facility], 2nd [place] [address] francisco [email or web address] Social History Tobacco Use Types Packs/Day Years [...] documented as of this encounter Care Teams Online Journalist Relationship Specialty Start Date End Date Pardeep Du MD [address] [place] [address], 2nd [place] [address] francisco [email or web address] PCP - General Internal Medicine 04/01/19 05/18/24 Delilah Cervantes DO [address] [place] [address] PCP - General Family Medicine 05/19/24 05/02/25 Kirstin Reyes PA [address] [place] [address] [place] [address] PCP - General Physician Community Sports Coordinator 05/03/25 Pardeep Du MD [address] [place] [address], 2nd [place] [address] francisco [email or web address] Insurance Assigned Provider 08/08/19 07/06/23 Jessie Smith, RN [address] [place] [address] [email or web address] PHCM Baker Pastry 12/12/22 01/24/23 documented as of this encounter Additional Source Comments The information contained in this document represents components of the legal health record. It is not the complete legal health record.[facility]
--- OUTSIDE RECORDS SUMMARY | 2025-09-09 07:24 | XMS_ITS | Encounter Summary ---
Author Organization [facility] Address [address] [facility] [address] [place] [address] Phone Care Team Providers Care Beer Runner Name Role Phone Pardeep Du MD Primary Care Provider Pardeep Du MD Unavailable [phone] Delilah Cervantes DO Primary Care Provider [phone] Kirstin Reyes Primary Care Provide r Encounter Details Date Type Department Care Team (Late st Contact Info) Description 04/05/2023 Procedure Pass [facility], [facility] 30 [place] [address] Social History Tobacco Use Types Packs/Day Years [...] documented as of this encounter Care Teams Beer Runner Relationship Specialty Start Date End Date Pardeep Du MD [address] [place] [address], [address] [place] [address] francisco PCP - General Internal Medicine 04/01/19 05/18/24 Delilah Cervantes DO [address] [place] [address] PCP - General Family Medicine 05/19/24 05/02/25 Kirstin Reyes PA [address] [place] [address] [place] [address] PCP - General Physician Derrick Boat Runner 05/03/25 Pardeep Du MD [address] [place] [address], [address] [place] [address] francisco [email or web address] Insurance Assigned Provider 08/08/19 07/06/23 documented as of this encounter Additional Source Comments The information contained in this document represents components of the legal health record. It is not the complete legal health record.[facility]
--- OUTSIDE RECORDS SUMMARY | 2025-09-09 07:24 | XMS_ITS | Encounter Summary ---
Author Organization [facility] Address [address] [facility] [address] [place] [address] Phone Care Team Providers Care Transitional Nurse Name Role Phone Pardeep Du MD Primary Care Provider [phone] Pardeep Du MD Unavailable [phone] Jessie Smith RN Unavailable [phone] Delilah Cervantes DO Primary Care Provider Kirstin Reyes Primary Care Provide r Encounter Details Date Type Department Care Team (Late st Contact Info) Description 05/10/2020 Procedure Pass [facility], [address] [place] [address] Social History Tobacco Use Types Packs/Day Years [...] education for yourself related to: Learning the Kosovan language? Completing high school, earning a high [...] documented as of this encounter Care Teams Transitional Nurse Relationship Specialty Start Date End Date Pardeep Du MD [address] [place] [address], [address] [place] [address] francisco PCP - General Internal Medicine 04/01/19 05/18/24 Delilah Cervantes DO [address] [place], [place] [address] [address] PCP - General Family Medicine 05/19/24 05/02/25 Kirstin Reyes PA [address] [place] [address] [place] [address] PCP - General Physician Early Head Start Teacher 05/03/25 Pardeep Du MD [address] [place] [address], [address] [place] [address] francisco Insurance Assigned Provider 08/08/19 07/06/23 Jessie Smith, RN [address] [place] [address] [email or web address] PHCM Human Resources Associate 12/12/22 01/24/23 documented as of this encounter Additional Source Comments The information contained in this document represents components of the legal health record. It is not the complete legal health record.[facility]
--- OUTSIDE RECORDS SUMMARY | 2025-09-09 07:24 | XMS_ITS | Encounter Summary ---
Author Organization [facility] Address [address] [facility] [address] [place] [address] Phone Care Team Providers Care Trainmaster Name Role Phone Pardeep Du MD Primary Care Provider Delilah Cervantes DO Primary Care Provider Kirstin Reyes Primary Care Provide r Encounter Details Date Type Department Care Team (Late st Contact Info) Description 11/29/2023 Procedure Pass [facility], [address] [phone] Social History Tobacco Use Types Packs/Day Years [...] documented as of this encounter Care Teams Trainmaster Relationship Specialty Start Date End Date Pardeep Du MD [address] [place] [address], 2nd [place] [address] francisco PCP - General Internal Medicine 04/01/19 05/18/24 Delilah Cervantes DO [address] [place] [address] PCP - General Family Medicine 05/19/24 05/02/25 Kirstin Reyes PA [address] [place] [address] [place] [address] PCP - General Physician Customer Account Representative 05/03/25 documented as of this encounter Additional Source Comments The information contained in this document represents components of the legal health record. It is not the complete legal health record.[facility]
--- OUTSIDE RECORDS SUMMARY | 2025-09-09 07:24 | XMS_ITS | Clinical Summary ---
Author Organization [facility] Address [address] [facility] [address] [place] [address] Phone Care Team Providers Care Manager Medical Device Name Role Phone Kirstin Reyes Primary Care [...] would like to switch her doctors to [facility]. Referral placed. Assessment & Plan (12/30/2023 [...] 4:55 PM EST): This is a 52-year-old Russian-speaking woman who I saw using a rn pool today who has lost about 7 and [...] 12:16 PM EST): This is a 52-year-old Russian-speaking woman who started the program at [facility] and did not lose very much weight on the program. The patient is now restarting the program at [facility] in an effort to undergo [...] protein shake or a protein bar or Indian yogurt or cottage cheese to be consumed [...] weight loss with the bariatric surgeons at [facility]. She is preparing for surgery. No [...] this topic Medical Devices Implanted Type Area Technical Operator Device Identifier Shelf Expiration Date Model / Serial / Lot System Implant Achilles Speedbridge Biocomposite - [id number] Implanted:Qty: 1 on 06/20/2022 by Drake Canales MD at [facility] Left: Ankle ARTHREX 03/27/2025 [id number] / / [id number] Procedures Procedure Name Priority Date/Time Associated Diagnosis [...] Marion MD - 05/03/2025 10:24 AM EDT [facility] Patient Name: Heidi Erickson Rivera Attending MD:: LANI MARION MD, Procedure Date: 05/03/2025 10:24 AM Date of : 1970 Age: 54 Admit Type: Outpatient Gender: Female Room: [place] [address] Referring MD: Kirstin Reyes Exam Type: Colonoscopy [...] monitored continuously. The Olympus adult variable colonoscope [id number] #[id number] was introduced through the anus and [...] 10:24 AM Procedure Code(s): --- Professional --- 11331, Colonoscopy, flexible; with removal of tumor(s), polyp(s), or other lesion(s) by snare technique --- Technical --- 10798, Colonoscopy, flexible; with removal of tumor(s), polyp(s), or other lesion(s) by snare technique CPT copyright 2021 [employer]. All rights reserved. The codes documented in this report are preliminary and upon gas shovel operator reviewmay be revised to meet current compliance requirements. Procedure Date: 05/03/2025 10:24:[address] [place] [address] Kirstin GRAJEDA GI PROCEDURE ORDERABL ES [...] (12/09/2022 4:15 AM EST) HDL 66 mg/dL [facility] Comment: Interpretation <40 mg/dL: Low HDL cholesterol (major risk factor for CHD) Greater than or equal to 60 mg/dL: High HDL cholesterol ( negative risk factor for CHD) HDL - cholesterol is affected by a number of factors, e.g. smoking, excerise, hormones, sex and age. CHOLESTEROL 163 0 - 240 mg/dL [facility] TRIGLYCERIDES 73 30 - 160 mg/dL [facility] LDL 82 50 - 129 mg/dL [facility] Comment: LDL levels in terms of risk for coronary heart disease: <100 mg/dL: Optimal 100-129 mg/dL: Near or above optimal 130-159 mg/dL: Borderline high 160-189 mg/dL: High >190 mg/dL: Very High CARDIAC RISK RATIO 2.5(L) 3.3 - 4.4 [facility] Blood 12/09/2022 4:15 AM EST 12/09/2022 4:23 AM EST us Olinda Higgins MD LAB BLOOD BKR ORDERABLES Fi nal Result [address] [address] * Pap Smear (03/20/2022 12:00 AM EDT) 03/20/2022 03/21/2022 8:4 4 AM EDT Narrative SEE NARRATIVE - 03/27/2022 11:19 AM EDT [address] [address] Vehicle Insurance Agent: Emliy Estevez MD DOG FOOD SHREDDER OPERATOR Cytology Report FINAL DIAGNOSIS A. PAP [...] 52, 56, 58, 59, 66, 68) by [employer]rec[employer] Onclarity HR-HPV analysis. Clinical correlation is advised. This HPV test was performed at [facility], [address] [place] [address]. This test has been FDA approved for SurePath cervical cytology specimens. The accuracy and precision of this test for all other specimen sources has been verified in the Cytopathology Laboratory of the [facility] and has not been cleared or approved by the U.S. Food and Drug Administration. Clinical correlation is advised. CLINICAL HISTORY Date of Last Menstrual Period: 03-20-2022 Menstrual History: Bleeding, Abnormal Other Clinical Conditions: Screening Pap SPECIMEN SOURCE A: PAP SMEAR (SUREPATH) CE Patient Name: HEIDI GUPTA : 1970 (Age: 51) Sex: F Institution: [facility] Location: [facility] Date of Collection: 03/20/2022 Date of Reported: 03/27/2022 11:19 Results to: Ted Bello MD Ted Bello MD CYTOLOGY ORDERABLES Final Result SEE NARRATIVE * Hepatitis C antibody, qualitative (01/25/2022 8:02 AM EDT) HCV NON-REACTIV E NON-REACTI VE [facility] Blood 01/25/2022 8:02 AM EDT 01/25/2022 8:06 AM EDT Pardeep Du MD LAB BLOOD BKR ORDERABLES Fi nal Result [facility] [address] [place] [address] * CT CHEST PULMONARY ANGIOGRAM (ACUTE) (09/26/2019 1:20 AM EST) Anatomical Region Laterality Modality Chest, Thoracic Vasculature Comp uted Tomography 09/26/2019 8:24 AM EST Impressions 09/26/2019 8:29 AM EST No pulmonary embolism demonstrated. Peripheral subsegmental emboli could be occult on this examination. No focal airspace infiltrate or pleural effusion. These findings were relayed to the Emergency Department by the [facility] on 09/26/2019. Incidental non-obstructive left nephrolithiasis. TOTAL CTDIvol: 113.60 mGy POS - [id number] Narrative 09/26/2019 8:29 AM EST COMPARISON: 09/25/2019 [...] relayed to the Emergency Department by [facility] on 09/26/2019. Incidental non-obstructive left nephrolithiasis. TOTAL CTDIvol: 113.60 mGy POS - [id number] us Dilshad Duncan DO IMG CT CHEST Final Result from Last 3 Months or Most Recently Relevant to Health Maintenance Insurance [address] [place] [address] ACO [facility] A[employer] [place] [address] [place] [address] Advance Directives For more information, please contact: [phone] (9AM - 5PM [facility], Saturday-Saturday) * Full Code (Latest Code Status on File) Date Activated Date Inactivated Comments 12/09/2022 3:44 AM Question Answer Comments Code Status Confirmed With: PatientFamily Care Teams Manager Medical Device Relationship Specialty Start Date End Date Kirstin Reyes PA [address] [place] [address] [place] [address] PCP - General Physician Truck Headlight Assembler 05/03/25 Additional Source Comments The information contained in this document represents components of the legal health record. It is not the complete legal health record.[facility]
--- OUTSIDE RECORDS SUMMARY | 2025-09-09 07:24 | XMS_ITS | Clinical Summary ---
Author Organization [employer] [facility] Address [address] [facility] 7t [place] [address] Care Team Providers Care Dry Room Attendant Name Role Phone Unavailable Primary Care Provider [...] (2 of 2 - PCV) 2022 03/11/2013 RSV Patients and Patients Aged 60 years or older (1 - Risk 50-74 years 1-dose series) 2022 Zoster Vaccines (1 of 2) 2022 COVID-19 Vaccine (3 - 2025-26 season) 2025 02/17/2021, 01/26/2021 Influenza Vaccine (#1) 2025 , 08/06/2022, 09/26/2021, Additional history exists Mammogram 02/20/2026 02/21/2024, 05/28, 05/01/2023, Additional history exists HIB Vaccines Aged Out No longer eligi [...] topic Insurance [facility] C[facility]
--- OUTSIDE RECORDS SUMMARY | 2025-09-09 07:24 | XMS_ITS | Encounter Summary ---
Author Organization [facility] Address [address] [facility] [address] [place] [address] Phone Care Team Providers Care Fabrication Manager Name Role Phone Pardeep Du MD Primary Care Provider [phone] Pardeep Du MD Unavailable [phone] Jessie Smith RN Unavailable [phone] Delilah Cervantes DO Primary Care Provider [phone] Kirstin Reyes Primary Care Provide r Encounter Details Date Type Department Care Team (Late st Contact Info) Description 09/16/2019 Ancillary Orders [facility],Outside Imaging 30 [place], [place] [phone] System, Provider Not In, PhD Partners [address] [address] Social History Tobacco Use Types Packs/Day Years [...] education for yourself related to: Learning the Kittitian language? Completing high school, earning a high [...] documented as of this encounter Care Teams Fabrication Manager Relationship Specialty Start Date End Date Pardeep Du MD [address] [place] [address], [address] [place] [address] francisco PCP - General Internal Medicine 04/01/19 05/18/24 Delilah Cervantes DO [address] [place] [address] PCP - General Family Medicine 05/19/24 05/02/25 Kirstin Reyes PA [address] [place] [address] [place] [address] PCP - General Physician Bottling Supervisor 05/03/25 Pardeep Du MD [address] [place] [address] francisco Insurance Assigned Provider 08/08/19 07/06/23 Jessie Smith, RN [address] [place] [address] PHCM Terminal System Operator 12/12/22 01/24/23 documented as of this encounter Additional Source Comments The information contained in this document represents components of the legal health record. It is not the complete legal health record.[facility]
--- OUTSIDE RECORDS SUMMARY | 2025-09-09 07:24 | XMS_ITS | Encounter Summary ---
Author Organization [facility] Address [address] [facility] [address] [place] [address] Phone Care Team Providers Care Solids Control Technician Name Role Phone Pardeep Du MD Primary Care Provider [phone] Pardeep Du MD Unavailable [phone] Jessie Smith RN Unavailable [phone] Delilah Cervantes DO Primary Care Provider Kirstin Reyes Primary Care Provide r Encounter Details Date Type Department Care Team (Late st Contact Info) Description 06/02/2019 Procedure Pass [facility], [address] [place] [address] Social History Tobacco Use Types Packs/Day Years [...] documented as of this encounter Care Teams Solids Control Technician Relationship Specialty Start Date End Date Pardeep Du MD [address] [place] [address], 2nd [place] [address] francisco [email or web address] PCP - General Internal Medicine 04/01/19 05/18/24 Delilah Cervantes DO [address] [place] [address] PCP - General Family Medicine 05/19/24 05/02/25 Kirstin Reyes PA [address] [place] [address] [place] [address] PCP - General Physician Coat Baster 05/03/25 Pardeep Du MD [address] [place] [address], 2nd [place] [address] francisco [email or web address] Insurance Assigned Provider 08/08/19 07/06/23 Jessie Smith, RN [address] [place] [address] [email or web address] PHCM Engine Dynamometer Tester 12/12/22 01/24/23 documented as of this encounter Additional Source Comments The information contained in this document represents components of the legal health record. It is not the complete legal health record.[facility]
--- OUTSIDE RECORDS SUMMARY | 2025-09-09 07:24 | XMS_ITS | Encounter Summary ---
Author Organization [facility] Address [address] [facility] [address] [place] [address] Phone Care Team Providers Care Order Filler Name Role Phone Pardeep Du MD Primary Care Provider [phone] Pardeep Du MD Unavailable [phone] Jessie Smith RN Unavailable [phone] Delilah Cervantes DO Primary Care Provider Kirstin Reyes Primary Care Provide r Encounter Details Date Type Department Care Team (Late st Contact Info) Description 09/16/2019 Ancillary Orders [facility],Outside Imaging 30 [place], [place] [phone] System, Provider Not In, PhD Partners [address] [address] Social History Tobacco Use Types Packs/Day Years [...] documented as of this encounter Care Teams Order Filler Relationship Specialty Start Date End Date Pardeep Du MD [address] [place] [address], [address] [place] [address] francisco PCP - General Internal Medicine 04/01/19 05/18/24 Delilah Cervantes DO [address] [place] [address] PCP - General Family Medicine 05/19/24 05/02/25 Kirstin Reyes PA [address] [place] [address] [place] [address] PCP - General Physician Bmw Sales Consultant 05/03/25 Pardeep Du MD [address] [place] [address], [address] [place] [address] francisco Insurance Assigned Provider 08/08/19 07/06/23 Jessie Smith, RN [address] [place] [address] PHCM Automatic Pattern Edger 12/12/22 01/24/23 documented as of this encounter Additional Source Comments The information contained in this document represents components of the legal health record. It is not the complete legal health record.[facility]
--- OUTSIDE RECORDS SUMMARY | 2025-09-09 07:24 | XMS_ITS | Encounter Summary ---
Author Organization [facility] Address [address] [place] [address] Phone Care Team Providers Care Career Based Intervention Coordinator Name Role Phone Pardeep Du MD Primary Care Provider [phone] Pardeep Du MD Unavailable [phone] Jessie Smith RN Unavailable [phone] Delilah Cervantes DO Primary Care Provider Kirstin Reyes Primary Care Provide r Encounter Details Date Type Department Care Team (Late st Contact Info) Description 10/04/2021 Procedure Pass [facility], [facility] [address] [place] [address] Social History Tobacco Use Types Packs/Day Years [...] education for yourself related to: Learning the [place] Zeal[place] language? Completing high school, earning a high [...] documented as of this encounter Care Teams Career Based Intervention Coordinator Relationship Specialty Start Date End Date Pardeep Du MD [address] [place] [address], 2[address] [place] [address] francisco PCP - General Internal Medicine 04/01/19 05/18/24 Delilah Cervantes DO [address] [place] [address] PCP - General Family Medicine 05/19/24 05/02/25 Kirstin Reyes PA [address] [place] [address] [place] [address] PCP - General Physician Security System Sales Consultant 05/03/25 Pardeep Du MD [address] [place] [address], [address] [place] [address] francisco [email or web address] Insurance Assigned Provider 08/08/19 07/06/23 Jessie Smith, RN [address] [place] [address] [email or web address] PHCM Touch Up Carver 12/12/22 01/24/23 documented as of this encounter Additional Source Comments The information contained in this document represents components of the legal health record. It is not the complete legal health record.[facility]
--- OUTSIDE RECORDS SUMMARY | 2025-09-09 07:24 | XMS_ITS | Encounter Summary ---
Author Organization [facility] Address [address] [place] [address] Phone Care Team Providers Care Ammunition Specialist Name Role Phone Pardeep Du MD Primary Care Provider [phone] Pardeep Du MD Unavailable [phone] Jessie Smith RN Unavailable [phone] Delilah Cervantes DO Primary Care Provider Kirstin Reyes Primary Care Provide r Encounter Details Date Type Department Care Team (Late st Contact Info) Description 09/16/2019 Ancillary Orders [facility],Outside Imaging [address] [place], [place] [id number] System, Provider Not In, [facility] [address] [address] Social History Tobacco Use Types Packs/Day Years [...] documented as of this encounter Care Teams Ammunition Specialist Relationship Specialty Start Date End Date Pardeep Du MD [address] [place] [address], [address] [place] [address] francisco [email or web address] PCP - General Internal Medicine 04/01/19 05/18/24 Delilah Cervantes DO [address] [place] [address] PCP - General Family Medicine 05/19/24 05/02/25 Kirstin Reyes PA [address] [place] [address] [place] [address] PCP - General Physician Dye Beck Reel Operator 05/03/25 Pardeep Du MD [address] [place] [address], [address] [place] [address] francisco Insurance Assigned Provider 08/08/19 07/06/23 Jessie Smith, RN [address] [place] [address] PHCM Outpatient Coding Specialist 12/12/22 01/24/23 documented as of this encounter Additional Source Comments The information contained in this document represents components of the legal health record. It is not the complete legal health record.[facility]
--- OUTSIDE RECORDS SUMMARY | 2025-09-09 07:24 | XMS_ITS | Encounter Summary ---
Author Organization [facility] Address [address] [place] [address] Phone Care Team Providers Care Environmental Geologist Name Role Phone Pardeep Du MD Primary Care Provider [phone] Pardeep Du MD Unavailable [phone] Jessie Smith RN Unavailable [phone] Delilah Cervantes DO Primary Care Provider Kirstin Reyes Primary Care Provide r Encounter Details Date Type Department Care Team (Late st Contact Info) Description 12/09/2022 Procedure Pass [facility] [address] [place] [address] Social History Tobacco Use Types Packs/Day Years [...] education for yourself related to: Learning the Sri Lank[place] language? Completing high school, earning a high [...] as of this encounter Care Teams Environmental Geologist Relationship Specialty Start Date End Date Pardeep Du MD [address] [place] [address], 2nd [place] [address] francisco PCP - General Internal Medicine 04/01/19 05/18/24 Delilah Cervantes DO [address] [place] [address] PCP - General Family Medicine 05/19/24 05/02/25 Kirstin Reyes PA [address] [place] [address] [place] [address] PCP - General Physician Metalsmith Apprentice 05/03/25 Pardeep Du MD [address] [place] [address], 2[address] [place] [address] francisco [email or web address] Insurance Assigned Provider 08/08/19 07/06/23 Jessie Smith, RN [address] [place] [address] [email or web address] PHCM Client Service Executive 12/12/22 01/24/23 documented as of this encounter Additional Source Comments The information contained in this document represents components of the legal health record. It is not the complete legal health record.[facility]
[2025-09-09 09:48] LABS: Free T4 (Free Thyroxine) 0.80 ng/dL (0.71-1.85)
== END 2025-09-09 07:21 | disposition home or self-care (01) ==
LOC: HO.LAB 07:20
PROVIDERS: Visit Provider Student in an Organized Health Care Education/Training Program
DX: E03.9 Hypothyroidism, unspecified (principal)
CPT/HCPCS: 36415; 84439; 84443

== ENCOUNTER 2025-09-15 14:32 | Outpatient (AMB) | payer OTHER, SELFPAY ==
--- NOTE | 2025-09-15 14:50 | MHC.OFFVIS ---
Vital Signs 09/15/25 14:51 Height 5 ft 9 in Weight 403 lb 3.607 oz BMI 59.5 BP 128/82 Blood Pressure Location Rt brachial Position Sitting Pulse 70 Pulse Source Pulse Oximeter Pulse Oximetry (%) 98 Oxygen Delivery Method Room Air Intake Visit Reasons: Hypothyroidism Intake Note: Patient present today for Hypothyroidism, unspecified office visit. Last seen by DR Luzma Godinez MD -Thyroid Work-Up for TSH- Completed on 09/09/2025 Delivery Person Required: No Delivery Person Services: Delivery Person Offered & Declined Delivery Person Name: Jaxson Black [id number] Information Interpreted: non-clinical & clinical Accompanied by: Self / Same As Patient Allergies morphine Allergy (Severe, Verified 09/15/25 14:56) Shortness of Breath Seasonal Allergies Allergy (Severe, Verified 09/15/25 14:56) Sneezing latex (Latex) Allergy (Intermediate, Verified 09/15/25 14:56) ITCHY, RASH , AND FUNGUS oxycodone Allergy (Intermediate, Verified 09/15/25 14:56) Rash opium (anthroposophic) Allergy (Unknown, Verified 09/15/25 14:56) Hives HPI Comments Details: 54-year-old female coming in today for fup of subclinical hypothyroidism. HPI Subclinical Hypothyroidism first diagnosed January 2025 Most recent blood work from 02/26/2025 shows TSH was elevated at 8.35, free T4 0.76. Took levothyroxine 25 mcg for a week and says was getting headaches with the medication plus body aches so she stopped it after taking it for a week in February 2025. Prior to that in November 2024 she was noted to have a low TSH of 0.28, free T4 1.27. Reports constipation since 2 weeks. reports some heat intolerance? reports tiredness. body aches. reports hair loss. some palpitations here and there. reports tremors. still getting periods monthly. LMP 04/19/25 Patient currently denies changes in appearance of eyes or vision changes, tremors, increased diaphoresis or dry skin. ? Patient reports difficulty swallowing for about a week , some intermittent hoarsenss. Patient denies any history of childhood neck radiation. Denies having ever used lithium, amiodarone or biotin supplements. Patient denies any family history of thyroid cancer . Sister has thyroid disease. 04/29/25: TSH 6.02, free 0.93, total T3 127, TSI, TPO undetectable On levothyroxine 25 mcg daily since April 2025 Interval history She reports that labs in Jul 2025 showed TSH 10.65, then her LT4 dose was increased to 50 mcg daily Reports palpitations, intermittent. Started around 3 days ago. She reports SOB on exertion She reports that she started using her CPAP machine around 5 days ago Continues to gain gain weight but records variable weight between 390-305 lbs Reports increased thirst and poor appetite. She was using Wegovy before, and she reports that her thyroid tests were abnormal after that She would like to take Zepbound for weight, and for MANJINDER She reports discomfort on left side with swallowing Reports feeling less tired Physical exam General: Well appearing. NAD. Neck/Thyroid: Thyroid not palpable, no nodules. Eyes: No conjunctival injection, not lid lag or proptosis CV: RRR, no murmur. No edema. Resp:Lungs clear to auscultation bilaterally Abdomen: Soft, nontender. nondistended Extremities/Neuro: No weakness or tremor of outstretched hands Laboratory Tests 08/12/25 09/09/25 11:26 07:31 TSH 10.65 H 4.90 H Free T4 0.70 L 0.80 Laboratory Tests 04/03/21 07/24/24 12/04/24 10:55 08:41 11:41 TSH 4.11 H 7.63 H 0.28 L Free T4 0.80 1.27 02/26/25 10:41 TSH 8.35 H Free T4 0.76 Laboratory Tests 04/29/25 10:47 TSH 6.02 H Free T4 0.93 Total T3 127 Thyroid Stim Immunoglob <89 Thyroid Peroxidase Ab 1 TSH Receptor Ab <1.00 US THYROID 06/07/25 CLINICAL INFORMATION: Iodine deficiency. COMPARISON: None available. TECHNIQUE: Linear transducer grayscale and color Doppler examination with attention to the region of the thyroid. FINDINGS: SIZE: Measurements of the thyroid lobes and nodules are given in sagittal, anteroposterior and transverse dimensions respectively. Right Thyroid Lobe: 6.3 x 2.4 x 2.2 cm, volume 17.2 mL. Parenchyma: The gland echotexture is heterogeneous. Thyroid vascularity is normal. Left Thyroid Lobe: 9.4 x 1.6 x 1.9 cm, volume 70.8 mL. Parenchyma: The gland echotexture is heterogeneous. Thyroid vascularity is normal. Isthmus: 0.5 cm in maximum AP dimension. Estimated total number of nodules greater than or equal to 1 cm: 0. Label Maker nodules are described as follows: IMPRESSION: ACR TI-RADS category: 0 PFSH Medical History Peripheral edema Essential hypertension Subclinical hypothyroidism Thyromegaly Lipoma of chest wall Chronic diastolic (congestive) heart failure Anal fistula Sinus complaint Sterilization Kidney stone Acute appendicitis Vesicular dermatitis Enlarged lymph node Acute bacterial tonsillitis History of claustrophobia History of anxiety Hx of tendinitis Hx of bursitis History of knee problem Hx of chronic arthritis Family history of heart murmur History of asthma Surgical History History of hand surgery Hx of carpal tunnel repair H/O bilateral mastectomy History of kidney surgery Hx of tubal ligation Hx of tonsillectomy Hx of breast surgery Hx of appendectomy Hx of cholecystectomy Hx of knee surgery History of Achilles tendon repair Family History Mother Accelerated hypertension Arthritis Cancer of stomach Father Arthritis Sister No problems noted. Sister Arthritis Accelerated hypertension Sister No problems noted. Sister No problems noted. Brother Overdose Brother HIV disease Son Asthma Son No problems noted. Son No problems noted. Son No problems noted. Daughter No problems noted. Social History Housing: Apartment Alcohol intake: never Patient Tobacco Use Status: Former Tobacco user Tobacco use type: Cigarette Cigarettes Per Day: 1 Years Smoked: 30 e-Cigarette/Vaping Use: Never Used Second Hand Smoke Exposure: Yes service: No Current occupational status: unemployed Cognitive needs: Yes Hearing needs: No Vision needs: Yes Female Reproductive History Menstrual Age of Menarche: 14 Physical Exam Vital Signs: Last Vital Signs Pulse 70 09/15/25 14:51 BP 128/82 09/15/25 14:51 Pulse Ox 98 09/15/25 14:51 Oxygen Delivery Method Room Air 09/15/25 14:51 BMI result Body Mass Index 59.5 Assessment & Plan Assessment & Plan (1) Subclinical hypothyroidism: Code(s): E03.8 - Other specified hypothyroidism Category: Medical Plan: 54-year-old female coming in today for follow up of subclinical hypothyroidism. Blood work from February 2025 showed TSH was elevated at 8.35, normal free T4 of which was on the lower side of normal at 0.76. She does have a lot of symptoms of tiredness, body aches, however when she was started on levothyroxine 25 mcg daily, she reported headaches and worsening of body aches that has been better since she stopped taking the medication after taking it for about a week in February 2025. 04/29/25: TSH 6.02, free 0.93, total T3 127, TSI, TPO undetectable On levothyroxine 25 mcg daily restarted since April 2025 Forgot to repeat blood work prior to appointment 06/07/25: US thyroid no nodules seen, heterogenous gland 09/09/25: TSH 10.65, Free T4 0.70 09/09/25: TSH 4.90, Free T4 0.80 Discussed that her thyroid gland been enlarged in volume (although by my own calculation is not 70ml), and given her associated dysphagia, we have decided to refer the patient to endocrine surgery for evaluation. In regards to her TFTs, she reports that she was taking 12.5 mcg initially, and the dose increase has make her feel significantly better. Her TSH did improve, but test was done prior to 6 weeks which is my preferred timeline Plan: -continue levothyroxine 50 mcg daily -Repeat TFTs in 3 months -Endocrine surgery referral (2) BMI 50.0-59.9, adult: Code(s): Z68.43 - Body mass index [BMI] 50.0-59.9, adult Category: Medical (3) Sleep apnea with use of continuous positive airway pressure (CPAP): Code(s): G47.30 - Sleep apnea, unspecified Category: Medical Plan: Patient with Morbid obesity and associated MANJINDER. Her TFTs are now almost normalized, despite which she is still gaining weight. She reports having poor appetite, but I think she will benefit from a horn player referral. FIB-4 Index = (Age ? AST) / (Platelets ? ?ALT): 1.48 Based on guidelines 1.3 ? 2.67 Indeterminate risk--> Consider transient elastography or additional work-up We discussed trying Zepbound for weight loss and to help in MANJINDER and possible MASLD. We discussed the side effects including nausea, vomiting, constipation and pancreatitis. Plan Order Zepbound 2.5mg weekly Increase physical activity as tolerated to a maximum of 170 mins/wk Referral to nutrition Plan 30 minutes spent reviewing previous records, labs, imaging, education and documenting in the chart Orders: Orders US abdomen ott w elastography Today Z68.43 - Body mass index [BMI] 50.0-59.9, adult TSH reflex Free T4 3 Months E03.8 - Other specified hypothyroidism Referrals General Surgery Referral E01.0 - Iodine-deficiency related diffuse (endemic) goiter Pesticide Use Medical Coordinator Nutrition Referral E66.01 - Morbid (severe) obesity due to excess calories, Z68.43 - Body mass index [BMI] 50.0-59.9, adult Medications: New tirzepatide (weight loss) (Zepbound) for 4 weeks 2.5 mg (0.5 mL) subcut QWEEK 2 mL 3RF G47.30 - Sleep apnea, unspecified, Z68.43 - Body mass index [BMI] 50.0-59.9, adult Coding Level of Care Code Est Pt Level 4 (78425) Diagnoses Subclinical hypothyroidism E03.8 BMI 50.0-59.9, adult Z68.43 Sleep apnea with use of continuous positive airway pressure (CPAP) G47.30
[2025-09-15 14:51] VITALS: BP 128/82; PULSE 70; O2SAT 98; BMI 59.5
--- OUTSIDE RECORDS SUMMARY | 2025-09-16 02:58 | XMS_ITS | Encounter Summary ---
Author Organization [facility] Address [address] [place] [address] Phone Care Team Providers Care Migration Agent Name Role Phone Pardeep Du MD Primary Care Provider Delilah Cervantes DO Primary Care Provider Kirstin Reyes Primary Care Provide r Encounter Details Date Type Department Care Team (Late st Contact Info) Description 11/29/2023 Procedure Pass [facility], [address] [id number] Social History Tobacco Use Types Packs/Day Years [...] documented as of this encounter Care Teams Migration Agent Relationship Specialty Start Date End Date Pardeep Du MD [address] [place] [address], 2nd [place] [address] francisco PCP - General Internal Medicine 04/01/19 05/18/24 Delilah Cervantes DO [address] [place] [address] PCP - General Family Medicine 05/19/24 05/02/25 Kirstin Reyes PA [address] [place] [address] [place] [address] PCP - General Physician World[employer] Chief Creative Officer 05/03/25 documented as of this encounter Additional Source Comments The information contained in this document represents components of the legal health record. It is not the complete legal health record.[facility]
--- OUTSIDE RECORDS SUMMARY | 2025-09-16 02:58 | XMS_ITS | Encounter Summary ---
Author Organization [facility] Address [address] [place] [address] Phone Care Team Providers Care Driver Recruiter Name Role Phone Pardeep Du MD Primary Care Provider [phone] Pardeep Du MD Unavailable [phone] Jessie Smith RN Unavailable [phone] Delilah Cervantes DO Primary Care Provider Kirstin Reyes Primary Care Provide r Encounter Details Date Type Department Care Team (Late st Contact Info) Description 06/30/2019 Procedure Pass [facility], [address] [place] [address] Social History Tobacco Use Types Packs/Day Years [...] education for yourself related to: Learning the [place]at[place] language? Completing high school, earning a high [...] documented as of this encounter Care Teams Driver Recruiter Relationship Specialty Start Date End Date Pardeep Du MD [address] [place] [address], 2nd [place] [address] [email or web address] PCP - General Internal Medicine 04/01/19 05/18/24 Delilah Cervantes DO [address] [facility] [place] [address] PCP - General Family Medicine 05/19/24 05/02/25 Kirstin Reyes PA [address] [place] [address] [place] [address] PCP - General Physician Sewing Department Supervisor 05/03/25 Pardeep Du MD [address] [place] [address], [address] [place] [address] francisco [email or web address] Insurance Assigned Provider 08/08/19 07/06/23 Jessie Smith, RN [address] [place] [address] [email or web address] PHCM Mortician Investigator 12/12/22 01/24/23 documented as of this encounter Additional Source Comments The information contained in this document represents components of the legal health record. It is not the complete legal health record.[facility]
--- OUTSIDE RECORDS SUMMARY | 2025-09-16 02:58 | XMS_ITS | Encounter Summary ---
Author Organization [facility] Address [address] [place] [address] Phone Care Team Providers Care Manufacturing Quality Inspector Name Role Phone Pardeep uD MD Primary Care Provider Pardeep Du MD Unavailable [phone] Jessie Smith RN Unavailable [phone] Delilah Cervantes DO Primary Care Provider Kirstin Reyes Primary Care Provide r Encounter Details Date Type Department Care Team (Late st Contact Info) Description 12/09/2022 Procedure Pass [facility] [address] [place] [address] Social History Tobacco Use Types Packs/Day Years [...] documented as of this encounter Care Teams Manufacturing Quality Inspector Relationship Specialty Start Date End Date Pardeep Du MD [address] [place] [address], [address] [place] [address] francisco PCP - General Internal Medicine 04/01/19 05/18/24 Delilah Cervantes DO [address] [place] [address] PCP - General Family Medicine 05/19/24 05/02/25 Kirstin Reyes PA [address] [place] [address] [place] [address] PCP - General Physician Adventure Education Teacher 05/03/25 Pardeep Du MD [address] [place] [address], [address] [place] [address] francisco [email or web address] Insurance Assigned Provider 08/08/19 07/06/23 Jessie Smith, RN [address] [place] [address] [email or web address] PHCM Building And Grounds Supervisor 12/12/22 01/24/23 documented as of this encounter Additional Source Comments The information contained in this document represents components of the legal health record. It is not the complete legal health record.[facility]
--- OUTSIDE RECORDS SUMMARY | 2025-09-16 02:59 | XMS_ITS | Clinical Summary ---
Author Organization [facility] Address [address] [facility] [place] [address] [place] [address] Phone Care Team Providers Care Glaucoma Specialist Name Role Phone Kirstin Reyes Primary Care [...] would like to switch her doctors to [facility]. Referral placed. Assessment & Plan (12/30/2023 [...] may also help with her chronic pain. AMNJINDER (obstructive sleep apnea) 12/10/2022 Assessment & Plan [...] 4:55 PM EST): This is a 52-year-old Sudanese-speaking woman who I saw using a pharmacy technician program director today who has lost about 7 and [...] 12:16 PM EST): This is a 52-year-old Sudanese-speaking woman who started the program at [facility] and did not lose very much weight on the program. The patient is now restarting the program at [facility] in an effort to undergo laparoscopic [...] protein shake or a protein bar or English yogurt or cottage cheese to be consumed [...] weight loss with the bariatric surgeons at [facility]. She is preparing for surgery. No [...] 12/09/2022, 09/27, 10/15/2022, Additional history exists COLONOSCOPY 05/03/2030 05/03/2025, 04/06/2022 COLORECTAL CANCER SCREENING 05/03/2030 HEPATITIS C SCREENING Completed 01/25/2022, 022 HIV [...] this topic Medical Devices Implanted Type Area Upholsterer Apprentice Device Identifier Shelf Expiration Date Model / Serial / Lot System Implant Achilles Speedbridge Biocomposite - [id number] Implanted:Qty: 1 on 06/20/2022 by Drake Canales MD at [facility] Left: Ankle ARTHREX 03/27/2025 [id number] / / [id number] Procedures Procedure Name Priority Date/Time Associated Diagnosis [...] Marion MD - 05/03/2025 10:24 AM EDT [facility] Patient Name: Heidichapo Gupta Attending MD:: LANI MARION MD, Procedure Date: 05/03/2025 10:24 AM Date of : 1970 Age: 54 Admit Type: Outpatient Gender: Female Room: [place] [address] Referring MD: Kirstin Reyes Exam Type: Colonoscopy [...] monitored continuously. The Olympus adult variable colonoscope [id number] #[id number] was introduced through the anus and [...] 10:24 AM Procedure Code(s): --- Professional --- 43827, Colonoscopy, flexible; with removal of tumor(s), polyp(s), or other lesion(s) by snare technique --- Technical --- 95065, Colonoscopy, flexible; with removal of tumor(s), polyp(s), or other lesion(s) by snare technique CPT copyright 2021 [employer]. All rights reserved. The codes documented in this report are preliminary and upon logger driving horses reviewmay be revised to meet current compliance requirements. Procedure Date: 05/03/2025 10:24:[address] [place] [address] Kirstin GRAJEDA GI PROCEDURE ORDERABL ES [...] (12/09/2022 4:15 AM EST) HDL 66 mg/dL [facility] Comment: Interpretation <40 mg/dL: Low HDL cholesterol (major risk factor for CHD) Greater than or equal to 60 mg/dL: High HDL cholesterol ( negative risk factor for CHD) HDL - cholesterol is affected by a number of factors, e.g. smoking, excerise, hormones, sex and age. CHOLESTEROL 163 0 - 240 mg/dL [facility] TRIGLYCERIDES 73 30 - 160 mg/dL [facility] LDL 82 50 - 129 mg/dL [facility] Comment: LDL levels in terms of risk for coronary heart disease: <100 mg/dL: Optimal 100-129 mg/dL: Near or above optimal 130-159 mg/dL: Borderline high 160-189 mg/dL: High >190 mg/dL: Very High CARDIAC RISK RATIO 2.5(L) 3.3 - 4.4 C [facility] Blood 12/09/2022 4:15 AM EST 12/09/2022 4:23 AM EST us Olinda Higgins MD LAB BLOOD BKR ORDERABLES Fi nal Result [address] [address] * Pap Smear (03/20/2022 12:00 AM EDT) 03/20/2022 03/21/2022 8:4 4 AM EDT Narrative SEE NARRATIVE - 03/27/2022 11:19 AM EDT [address] [address] Transport Aircrewman: Emily Estevez MD PUBLICATION MANAGER Cytology Report FINAL DIAGNOSIS A. PAP SMEAR [...] 52, 56, 58, 59, 66, 68) by [employer] HR-HPV analysis. Clinical correlation is advised. This HPV test was performed at [facility], [address] [place] [address]. This test has been FDA approved for [employer] cervical cytology specimens. The accuracy and precision of this test for all other specimen sources has been verified in the Cytopathology Laboratory of the [facility] and has not been cleared or approved by the U.S. Food and Drug Administration. Clinical correlation is advised. CLINICAL HISTORY Date of Last Menstrual Period: 03-20-2022 Menstrual History: Bleeding, Abnormal Other Clinical Conditions: Screening Pap SPECIMEN SOURCE A: PAP SMEAR (SUREPATH) CE Patient Name: HEIDI GUPTA : 1970 (Age: 51) Sex: F Institution: [facility] Location: [facility] Date of Collection: 03/20/2022 Date of Reported: 03/27/2022 11:19 Results to: Ted Bello MD Ted Bello MD CYTOLOGY ORDERABLES Final Result SEE NARRATIVE * Hepatitis C antibody, qualitative (01/25/2022 8:02 AM EDT) HCV NON-REACTIV E NON-REACTI VE [facility] Blood 01/25/2022 8:02 AM EDT 01/25/2022 8:06 AM EDT Pardeep Du MD LAB BLOOD BKR ORDERABLES Fi nal Result [address] [address] * CT CHEST PULMONARY ANGIOGRAM (ACUTE) (09/26/2019 1:20 AM EST) Anatomical Region Laterality Modality Chest, Thoracic Vasculature Comp uted Tomography 09/26/2019 8:24 AM EST Impressions 09/26/2019 8:29 AM EST No pulmonary embolism demonstrated. Peripheral subsegmental emboli could be occult on this examination. No focal airspace infiltrate or pleural effusion. These findings were relayed to the Emergency Department by the [facility] on 09/26/2019. Incidental non-obstructive left nephrolithiasis. TOTAL CTDIvol: 113.60 mGy POS - [id number] Narrative 09/26/2019 8:29 AM EST COMPARISON: 09/25/2019 [...] were relayed to the Emergency Department by [facility] on 09/26/2019. Incidental non-obstructive left nephrolithiasis. TOTAL CTDIvol: 113.60 mGy POS - [id number] us Dilshad Duncan DO IMG CT CHEST Final Result from Last 3 Months or Most Recently Relevant to Health Maintenance Insurance [facility] PROGRESSIVE INSURANCE Advance Directives For more information, please contact: [phone] (9AM - 5PM [facility], Saturday-Saturday) * Full Code (Latest Code Status on File) Date Activated Date Inactivated Comments 12/09/2022 3:44 AM Question Answer Comments Code Status Confirmed With: PatientFamily Care Teams Glaucoma Specialist Relationship Specialty Start Date End Date Kirstin Reyes PA [address] [place] [place] [address] PCP - General Physician Director Erp 05/03/25 Additional Source Comments The information contained in this document represents components of the legal health record. It is not the complete legal health record.[facility]
--- OUTSIDE RECORDS SUMMARY | 2025-09-16 02:59 | XMS_ITS | Encounter Summary ---
Author Organization [facility] Address [address] [facility] [address] [place] [address] Phone Care Team Providers Care Events Associate Name Role Phone Pardeep Du MD Primary Care Provider Pardeep Du MD Unavailable [phone] Jessie Smith RN Unavailable [phone] Delilah Cervantes DO Primary Care Provider Kirstin Reyes Primary Care Provide r Encounter Details Date Type Department Care Team (Late st Contact Info) Description 10/04/2021 Procedure Pass [facility], [facility] [address] [place] [address] Social History Tobacco Use Types Packs/Day Years [...] documented as of this encounter Care Teams Events Associate Relationship Specialty Start Date End Date Pardeep Du MD [address] [place] [address], 2nd [place] [address] francisco PCP - General Internal Medicine 04/01/19 05/18/24 Delilah Cervantes DO [address] [place] [address] PCP - General Family Medicine 05/19/24 05/02/25 Kirstin Reyes PA [address] [place] [address] [place] [address] PCP - General Physician Assistive Technology Specialist 05/03/25 Pardeep Du MD [address] [place] [address], 2[address] [place] [address] francisco [email or web address] Insurance Assigned Provider 08/08/19 07/06/23 Jessie Smith, RN [address] [place] [address] [email or web address] PHCM Asbestos Remover 12/12/22 01/24/23 documented as of this encounter Additional Source Comments The information contained in this document represents components of the legal health record. It is not the complete legal health record.[facility]
--- OUTSIDE RECORDS SUMMARY | 2025-09-16 02:59 | XMS_ITS | Encounter Summary ---
Author Organization [facility] Address [address] [facility] [address] [place] [address] Phone Care Team Providers Care Bolt Labeler Name Role Phone Pardeep Du MD Primary Care Provider Pardeep Du MD Unavailable Jessie Smith RN Unavailable [phone] Delilah Cervantes DO Primary Care Provider Kirstin Reyes Primary Care Provide r Encounter Details Date Type Department Care Team (Late st Contact Info) Description 07/23/2019 Ancillary Orders Non-Invasive Cardiology 30 [place] [address] Pardeep Du MD [address] [facility], 2nd [place] [address] francisco [email or web address] Chest pain, unspecified type Social History Tobacco [...] AM EDT) Max BP Systolic 130 mmHg [facility] Max BP Diastolic 70 mmHg [facility] Max HR 88 BPM [facility] Resting HR 57 BPM [facility] Resting BP Systolic 126 mmHg [facility] Resting BP Diastolic 78 mmHg [facility] Peak METS 1.0 METS [facility] Peak HR 87 BPM [facility] Anatomical Region Laterality Modality Heart Other [...] the Tc99m Sestamibi by the nuclear medicine specialist. Patient tolerated infusion without complications. Test terminated [...] documented as of this encounter Care Teams Bolt Labeler Relationship Specialty Start Date End Date Pardeep Du MD [address] [place] [address], 2nd [place] [address] francisco PCP - General Internal Medicine 04/01/19 05/18/24 Delilah Cervantes DO [address] [place] [address] PCP - General Family Medicine 05/19/24 05/02/25 Kirstin Reyes PA [address] [place] [address] [place] [address] PCP - General Physician Observation Nurse 05/03/25 Pardeep Du MD [address] [place] [address], 2nd [place] [address] francisco Insurance Assigned Provider 08/08/19 07/06/23 Jessie Smith, RN [address] [place] [address] [email or web address] PHCM Software Applications Specialist 12/12/22 01/24/23 documented as of this encounter Additional Source Comments The information contained in this document represents components of the legal health record. It is not the complete legal health record.[facility]
--- OUTSIDE RECORDS SUMMARY | 2025-09-16 02:59 | XMS_ITS | Encounter Summary ---
Author Organization [facility] Address [address] [facility] [address] [place] [address] Phone Care Team Providers Care Deli Associate Name Role Phone Pardeep Du MD Primary Care Provider [phone] Pardeep Du MD Unavailable [phone] Jessie Smith RN Unavailable [phone] Delilah Cervantes DO Primary Care Provider Kirstin Reyes Primary Care Provide r Encounter Details Date Type Department Care Team (Late st Contact Info) Description 06/02/2019 Procedure Pass [facility], [address] [place] [address] Social History Tobacco Use Types Packs/Day Years [...] education for yourself related to: Learning the Comoran language? Completing high school, earning a high [...] documented as of this encounter Care Teams Deli Associate Relationship Specialty Start Date End Date Pardeep Du MD [address] [place] [address], 2nd [place] [address] francisco PCP - General Internal Medicine 04/01/19 05/18/24 Delilah Cervantes DO [address] [place] [address] PCP - General Family Medicine 05/19/24 05/02/25 Kirstin Reyes PA [address] [place] [address] [place] [address] PCP - General Physician Buffing And Polishing Wheel Repairer 05/03/25 Pardeep Du MD [address] [place] [address], 2[address] [place] [address] francisco [email or web address] Insurance Assigned Provider 08/08/19 07/06/23 Jessie Smith, RN [address] [place] [address] [email or web address] PHCM Automatic Beading Lathe Operator 12/12/22 01/24/23 documented as of this encounter Additional Source Comments The information contained in this document represents components of the legal health record. It is not the complete legal health record.[facility]
--- OUTSIDE RECORDS SUMMARY | 2025-09-16 02:59 | XMS_ITS | Encounter Summary ---
Author Organization [facility] Address [address] [facility] [place] [facility] [address] [place] [address] Phone Care Team Providers Care Overhead Cleaner Maintainer Name Role Phone Kirstin Reyes Primary Care Provide r Encounter Details Date Type Department Care Team (Late st Contact Info) Description 05/03/2025 Procedure Pass [facility] Endoscopy Admitting Dept Virtual Department 30 [place] [address] Social History Tobacco Use Types Packs/Day Years [...] documented as of this encounter Care Teams Overhead Cleaner Maintainer Relationship Specialty Start Date End Date Kirstin Reyes PA [address] [place] [address] [address] [place] [id number] PCP - General Physician Propeller Layout Worker 05/03/25 documented as of this encounter Additional Source Comments The information contained in this document represents components of the legal health record. It is not the complete legal health record.[facility]
--- OUTSIDE RECORDS SUMMARY | 2025-09-16 02:59 | XMS_ITS | Encounter Summary ---
Author Organization [facility] Address [address] [facility] [address] [place] [address] Phone Care Team Providers Care Shale Planer Operator Name Role Phone Pardeep Du MD Primary Care Provider [phone] Pardeep Du MD Unavailable [phone] Jessie Smith RN Unavailable [phone] Delialh Cervantes DO Primary Care Provider Kirstin Reyes Primary Care Provide r Encounter Details Date Type Department Care Team (Late st Contact Info) Description 09/16/2019 Ancillary Orders [facility],Outside Imaging 30 [place], [place] [phone] System, Provider Not In, [facility] [address] [address] Social History Tobacco Use Types Packs/Day Years [...] education for yourself related to: Learning the Swiss language? Completing high school, earning a high [...] documented as of this encounter Care Teams Shale Planer Operator Relationship Specialty Start Date End Date Pardeep Du MD [address] [place] [address], [address] [place] [address] francisco [email or web address] PCP - General Internal Medicine 04/01/19 05/18/24 Delilah Cervantes DO [address] [place] [address] PCP - General Family Medicine 05/19/24 05/02/25 Kirstin Reyes PA [address] [place] [address] [place] [address] PCP - General Physician Senior Structural Engineer 05/03/25 Pardeep Du MD [address] [place] [address], [address] [place] [address] francisco Insurance Assigned Provider 08/08/19 07/06/23 Jessie Smith, RN [address] [place] [address] PHCM Internist Medical Doctor Md 12/12/22 01/24/23 documented as of this encounter Additional Source Comments The information contained in this document represents components of the legal health record. It is not the complete legal health record.[facility]
--- OUTSIDE RECORDS SUMMARY | 2025-09-16 02:59 | XMS_ITS | Encounter Summary ---
Author Organization [facility] Address [address] [facility] [address] [place] [address] Phone Care Team Providers Care Supervisor Sawmill Name Role Phone Pardeep Du MD Primary Care Provider [phone] Pardeep Du MD Unavailable [phone] Jessie Smith RN Unavailable [phone] Delilah Cervantes DO Primary Care Provider Kirstin Reyes Primary Care Provide r Encounter Details Date Type Department Care Team (Late st Contact Info) Description 09/16/2019 Ancillary Orders [facility],Outside Imaging 30 [place], [place] [id number] System, Provider Not In, [facility] [address] [address] Social History Tobacco Use Types Packs/Day Years [...] education for yourself related to: Learning the Croatian language? Completing high school, earning a high [...] documented as of this encounter Care Teams Supervisor Sawmill Relationship Specialty Start Date End Date Pardeep Du MD [address] [place] [address], [address] [place] [address] francisco PCP - General Internal Medicine 04/01/19 05/18/24 Delilah Cervantes DO [address] [place] [address] PCP - General Family Medicine 05/19/24 05/02/25 Kirstin Reyes PA [address] [place] [address] [place] [address] PCP - General Physician Staffing Consultant 05/03/25 Pardeep Du MD [address] [place] [address], [address] [place] [address] francisco Insurance Assigned Provider 08/08/19 07/06/23 Jessie Smith, RN [address] [place] [address] PHCM Technology Administrator 12/12/22 01/24/23 documented as of this encounter Additional Source Comments The information contained in this document represents components of the legal health record. It is not the complete legal health record.[facility]
--- OUTSIDE RECORDS SUMMARY | 2025-09-16 02:59 | XMS_ITS | Encounter Summary ---
Author Organization [facility] Address [address] [facility] [address] [place] [address] Phone Care Team Providers Care Hearing Aid Fitter Name Role Phone Pardeep Du MD Primary Care Provider [phone] Pardeep Du MD Unavailable [phone] Jessie Smith RN Unavailable [phone] Delilah Cervantes DO Primary Care Provider Kirstin Reyes Primary Care Provide r Encounter Details Date Type Department Care Team (Late st Contact Info) Description 05/10/2020 Procedure Pass [facility], [address] [place] [address] Social History Tobacco Use Types Packs/Day Years [...] education for yourself related to: Learning the Bruneian language? Completing high school, earning a high [...] documented as of this encounter Care Teams Hearing Aid Fitter Relationship Specialty Start Date End Date Pardeep Du MD [address] [place] [address], [address] [place] [address] francisco PCP - General Internal Medicine 04/01/19 05/18/24 Delilah Cervantes DO [address] [place], [place] [address] [place] [address] PCP - General Family Medicine 05/19/24 05/02/25 Kirstin Reyes PA [address] [place] [address] [place] [address] PCP - General Physician Speech Language Pathologist Travel 05/03/25 Pardeep Du MD [address] [place] [address], [address] [place] [address] francisco Insurance Assigned Provider 08/08/19 07/06/23 Jessie Smith, RN [address] [place] [address] [email or web address] PHCM New Home Sales Consultant 12/12/22 01/24/23 documented as of this encounter Additional Source Comments The information contained in this document represents components of the legal health record. It is not the complete legal health record.[facility]
--- OUTSIDE RECORDS SUMMARY | 2025-09-16 02:59 | XMS_ITS | Encounter Summary ---
Author Organization [facility] Address [address] [facility] [address] [place] [address] Phone Care Team Providers Care Group Rooms Coordinator Name Role Phone Pardeep Du MD Primary Care Provider [phone] Pardeep Du MD Unavailable [phone] Jessie Smith RN Unavailable [phone] Delilah Cervantes DO Primary Care Provider Kirstin Reyes Primary Care Provide r Encounter Details Date Type Department Care Team (Late st Contact Info) Description 06/20/2022 Procedure Pass [place] Admitting Dept - Virtual Department 30 [place] [address] Social History Tobacco Use Types Packs/Day Years [...] as of this encounter Care Teams Group Rooms Coordinator Relationship Specialty Start Date End Date Pardeep Du MD [address] [place] [address], 2nd [place] [address] francisco PCP - General Internal Medicine 04/01/19 05/18/24 Delilah Cervantes DO [address] [place] [address] PCP - General Family Medicine 05/19/24 05/02/25 Kirstin Reyes PA NPI: [id number] [place] [address] [place] [address] PCP - General Physician Custom Bookbinder 05/03/25 Pardeep Du MD [address] [place] [address], [address] [place] [address] francisco [email or web address] Insurance Assigned Provider 08/08/19 07/06/23 Jessie Smith, RN [address] [place] [address] [email or web address] PHCM Circus Train Supervisor 12/12/22 01/24/23 documented as of this encounter Additional Source Comments The information contained in this document represents components of the legal health record. It is not the complete legal health record.[facility]
--- OUTSIDE RECORDS SUMMARY | 2025-09-16 02:59 | XMS_ITS | Encounter Summary ---
Author Organization [facility] Address [address] [facility] [address] [place] [address] Phone Care Team Providers Care Vehicle Check In Clerk Name Role Phone Pardeep Du MD Primary Care Provider [phone] Pardeep Du MD Unavailable [phone] Jessie Smith RN Unavailable [phone] Delilah Cervantes DO Primary Care Provider [phone] Kirstin Reyes Primary Care Provide r Encounter Details Date Type Department Care Team (Late st Contact Info) Description 04/06/2022 Procedure Pass [facility] Endoscopy Admitting Dept Virtual Department 30 [place], [place] [id number] Social History Tobacco Use Types Packs/Day Years [...] education for yourself related to: Learning the Haitian language? Completing high school, earning a high [...] documented as of this encounter Care Teams Vehicle Check In Clerk Relationship Specialty Start Date End Date Pardeep Du MD [address] [place] [address], 2nd [place] [address] francisco PCP - General Internal Medicine 04/01/19 05/18/24 Delilah Cervantes DO [address] [place] [address] PCP - General Family Medicine 05/19/24 05/02/25 Kirstin Reyes PA NPI: [id number] [place] [address] [place] [address] PCP - General Physician Produce Field Merchandiser 05/03/25 Pardeep Du MD [address] [place] [address], 2nd [place] [address] francisco [email or web address] Insurance Assigned Provider 08/08/19 07/06/23 Jessie Smith, RN [address] [place] [address] [email or web address] PHCM Electrical Unit Rebuilder 12/12/22 01/24/23 documented as of this encounter Additional Source Comments The information contained in this document represents components of the legal health record. It is not the complete legal health record.[facility]
--- OUTSIDE RECORDS SUMMARY | 2025-09-16 02:59 | XMS_ITS | Encounter Summary ---
Author Organization [facility] Address [address] [place] [address] Phone Care Team Providers Care Turn Down Man Name Role Phone Helen Delilah Primary Care Provider [phone] Kirstin Reyes Primary Care Provide r Encounter Details Date Type Department Care Team (Latest Contact Info) Description 08/06/2024 Transcribe Orders Virtual Department 30 [place] [address] Gilda Carranza PA-C [address] [place] [address] [email or web address] Lesion of ovary (Primary Dx) Social History [...] documented as of this encounter Care Teams Turn Down Man Relationship Specialty Start Date End Date Delilah Cervantes DO [address] [place] [address] [place] [address] PCP - General Family Medicine 05/19/24 05/02/25 Kirstin Reyes PA [address] [place] [address] [place] [address] PCP - General Physician Bushing Press Operator 05/03/25 documented as of this encounter Additional Source Comments The information contained in this document represents components of the legal health record. It is not the complete legal health record.[facility]
--- OUTSIDE RECORDS SUMMARY | 2025-09-16 02:59 | XMS_ITS | Encounter Summary ---
Author Organization [facility] Address [address] [facility] [address] [place] [address] Phone Care Team Providers Care Six Pack Packer Name Role Phone Pardeep Du MD Primary Care Provider [phone] Pardeep Du MD Unavailable [phone] Jessie Smith RN Unavailable [phone] Delilah Cervantes DO Primary Care Provider Kirstin Reyes Primary Care Provide r Encounter Details Date Type Department Care Team (Late st Contact Info) Description 02/28/2022 Procedure Pass [facility] - [address] [place] [address] Social History Tobacco Use Types Packs/Day Years [...] education for yourself related to: Learning the [place]ib[place] language? Completing high school, earning a high [...] documented as of this encounter Care Teams Six Pack Packer Relationship Specialty Start Date End Date Pardeep Du MD [address] [place] [address], 2nd [place] [address] francisco PCP - General Internal Medicine 04/01/19 05/18/24 Delilah Cervantes DO [address] [place] [address] PCP - General Family Medicine 05/19/24 05/02/25 Kirstin Reyes PA [address] [place] [address] [place] [address] PCP - General Physician Preparole Counseling Aide 05/03/25 Pardeep Du MD [address] [place] [address], 2nd [place] [address] francisco [email or web address] Insurance Assigned Provider 08/08/19 07/06/23 Jessie Smith, RN [address] [place] [address] [email or web address] PHCM Switch House Operator 12/12/22 01/24/23 documented as of this encounter Additional Source Comments The information contained in this document represents components of the legal health record. It is not the complete legal health record.[facility]
--- OUTSIDE RECORDS SUMMARY | 2025-09-16 02:59 | XMS_ITS | Encounter Summary ---
Author Organization [facility] Address [address] [place] [address] Phone Care Team Providers Care Sheet Rocker Name Role Phone Pardeep Du MD Primary Care Provider Pardeep Du MD Unavailable [phone] Jessie Smith RN Unavailable [phone] Delilah Cervantes DO Primary Care Provider [phone] Kirstin Reyes Primary Care Provide r Encounter Details Date Type Department Care Team (Late st Contact Info) Description 05/04/2019 Ancillary Orders [facility] [address] [place] [address] [place] [address] Andrew Alberto MD [address] [place] [address] [place] [address] [email or web address] Pain in both knees, unspecified [...] to medium sized joint effusion. POS - [id number] Narrative 05/04/2019 1:28 PM EDT Left knee [...] to medium sized joint effusion. POS - [id number] Andrew Alberto MD IMG XR LOWER EXTREMITY F inal Result * XR KNEE 4 OR MORE VIEWS (RIGHT) (05/04/2019 1:07 PM EDT) Anatomical Region Laterality Modality Knee Right Radiographic Jesika ging 05/04/2019 1:27 PM EDT Impressions 05/04/2019 1:28 PM EDT Moderate medial compartment osteoarthritis. No erosive changes or bony lesion seen. Prominent joint effusion. POS - [id number] Narrative 05/04/2019 1:28 PM EDT Right knee [...] bonylesion seen. Prominent joint effusion. POS - [id number] Andrew Alberto MD IMG XR LOWER EXTREMITY [...] documented as of this encounter Care Teams Sheet Rocker Relationship Specialty Start Date End Date Pardeep Du MD [address] [place] [address], 2nd [place] [address] francisco PCP - General Internal Medicine 04/01/19 05/18/24 Delilah Cervantes DO [address] [place] [address] PCP - General Family Medicine 05/19/24 05/02/25 Kirstin Reyes PA [address] [place] [address] PCP - General Physician Slitter And Rewinder Machine Operator 05/03/25 Pardeep Du MD [address] [place] [address], [address] [place] [address] francisco Insurance Assigned Provider 08/08/19 07/06/23 Jessie Smith, RN [address] [place] [address] PHCM Sand Car Worker 12/12/22 01/24/23 documented as of this encounter Additional Source Comments The information contained in this document represents components of the legal health record. It is not the complete legal health record.[facility]
--- OUTSIDE RECORDS SUMMARY | 2025-09-16 02:59 | XMS_ITS | Clinical Summary ---
Author Organization [employer] [facility] Address [address] 7t [place] [address] Care Team Providers Care Senior Php Developer Name Role Phone Unavailable Primary Care Provider [...] patient's age to complete this topic Insurance [facility] C[facility]
--- OUTSIDE RECORDS SUMMARY | 2025-09-16 02:59 | XMS_ITS | Encounter Summary ---
Author Organization [facility] Address [address] [facility] [address] [place] [address] Phone Care Team Providers Care Fitness Sales Consultant Name Role Phone Pardeep Du MD Primary Care Provider [phone] Pardeep Du MD Unavailable [phone] Jessie Smith RN Unavailable [phone] Delilah Cervantes DO Primary Care Provider [phone] Kirstin Reyes Primary Care Provide r Reason [...] Expiration Date Visits Re quested Visits Authorized [id number] Closed 05/17/2020 05/17/2021 3 3 Encounter Details Date Type Department Care Team (Late st Contact Info) Description 05/10/2020 Ancillary Orders Virtual Department 30 [place] [address] Shazia Yeh NP [address] [place] [phone] [email or web address] Derangement of anterior horn of lateral [...] documented as of this encounter Care Teams Fitness Sales Consultant Relationship Specialty Start Date End Date Pardeep Du MD [address] [place] [address], [address] [place] [address] francisco [email or web address] PCP - General Internal Medicine 04/01/19 05/18/24 Delilah Cervantes DO [address] [place] [address] [place] [address] PCP - General Family Medicine 05/19/24 05/02/25 Kirstin Reyes PA [address] [place] [address] [place] [address] PCP - General Physician Altitude Chamber Technician 05/03/25 Pardeep Du MD [address] [place] [address], [address] [place] [address] francisco Insurance Assigned Provider 08/08/19 07/06/23 Jessie Smith, MEGHAN [address] [place] [address] [email or web address] PHCM Scooping Machine Tender 12/12/22 01/24/23 documented as of this encounter Additional Source Comments The information contained in this document represents components of the legal health record. It is not the complete legal health record.[facility]
--- OUTSIDE RECORDS SUMMARY | 2025-09-16 02:59 | XMS_ITS | Encounter Summary ---
Author Organization [facility] Address [address] [place] [address] Phone Care Team Providers Care Voip Network Technician Name Role Phone Pardeep Du MD Primary Care Provider [phone] Pardeep Du MD Unavailable [phone] Jessie Smith RN Unavailable [phone] Delilah Cervantes DO Primary Care Provider Kirstin Reyes Primary Care Provide r Encounter Details Date Type Department Care Team (Late st Contact Info) Description 10/18/2020 Procedure Pass [facility] - [address] [place] [address] Social History Tobacco Use Types Packs/Day Years [...] documented as of this encounter Care Teams Voip Network Technician Relationship Specialty Start Date End Date Pardeep Du MD [address] [place] [address], 2nd [place] [address] francisco PCP - General Internal Medicine 04/01/19 05/18/24 Delilah Cervantes DO [address] [place] [address] PCP - General Family Medicine 05/19/24 05/02/25 Kirstin Reyes PA [address] [place] [address] [place] [address] PCP - General Physician Fishing Hand 05/03/25 Pardeep Du MD [address] [place] [address], 2nd [place] [address] francisco [email or web address] Insurance Assigned Provider 08/08/19 07/06/23 Jessie Smith, RN [address] [place] [address] [email or web address] PHCM Generator Rebuilder 12/12/22 01/24/23 documented as of this encounter Additional Source Comments The information contained in this document represents components of the legal health record. It is not the complete legal health record.[facility]
--- OUTSIDE RECORDS SUMMARY | 2025-09-16 02:59 | XMS_ITS | Encounter Summary ---
Author Organization [facility] Address [address] [place] [address] Phone Care Team Providers Care Commercial Baker Helper Name Role Phone Pardeep Du MD Primary Care Provider [phone] Pardeep Du MD Unavailable [phone] Jessie Smith RN Unavailable [phone] Delilah Cervantes DO Primary Care Provider Kirstin Reyes Primary Care Provide r Encounter Details Date Type Department Care Team (Late st Contact Info) Description 09/16/2019 Ancillary Orders [facility],Outside Imaging 30 [place], [place] [id number] System, Provider Not In, [facility] [address] [address] Social History Tobacco Use Types Packs/Day Years [...] as of this encounter Care Teams Commercial Baker Helper Relationship Specialty Start Date End Date Pardeep Du MD [address] [place] [address], [address] [place] [address] francisco PCP - General Internal Medicine 04/01/19 05/18/24 Delilah Cervantes DO [address] [place] [address] PCP - General Family Medicine 05/19/24 05/02/25 Kirstin Reyes PA [address] [place] [address] [place] [address] PCP - General Physician Lactation Coordinator 05/03/25 Pardeep Du MD [address] [place] [address], [address] [place] [address] francisco Insurance Assigned Provider 08/08/19 07/06/23 Jessie Smith, RN [address] [place] [address] PHCM Electrophysiology Nurse Practitioner 12/12/22 01/24/23 documented as of this encounter Additional Source Comments The information contained in this document represents components of the legal health record. It is not the complete legal health record.[facility]
--- OUTSIDE RECORDS SUMMARY | 2025-09-16 02:59 | XMS_ITS | Encounter Summary ---
Author Organization [facility] Address [address] [place] [address] Phone Care Team Providers Care Dental Director Name Role Phone Pardeep Du MD Primary Care Provider [phone] Pardeep Du MD Unavailable [phone] Jessie Smith RN Unavailable [phone] Delilah Cervantes DO Primary Care Provider Kirstin Reyes Primary Care Provide r Encounter Details Date Type Department Care Team (Late st Contact Info) Description 03/23/2021 Procedure Pass [facility], [address] [place] [address] Social History Tobacco Use Types Packs/Day Years [...] education for yourself related to: Learning the [place] language? Completing high school, earning a high [...] documented as of this encounter Care Teams Dental Director Relationship Specialty Start Date End Date Pardeep Du MD [address] [place] [address], 2nd [place] [address] francisco PCP - General Internal Medicine 04/01/19 05/18/24 Delilah Cervantes DO [address] [place] [address] PCP - General Family Medicine 05/19/24 05/02/25 Kirstin Reyes PA [address] [place] [address] [place] [address] PCP - General Physician Bias Cutting Machine Operator Vertical 05/03/25 Pardeep Du MD [address] [place] [address], 2nd [place] [address] francisco [email or web address] Insurance Assigned Provider 08/08/19 07/06/23 Jessie Smith, RN [address] [place] [address] PHCM Salvage Cutter 12/12/22 01/24/23 documented as of this encounter Additional Source Comments The information contained in this document represents components of the legal health record. It is not the complete legal health record.[facility]
--- OUTSIDE RECORDS SUMMARY | 2025-09-16 02:59 | XMS_ITS | Encounter Summary ---
Author Organization [facility] Address [address] [facility] [address] [facility] [address] [place] [address] Phone Care Team Providers Care Biomedical Engineering Internship Name Role Phone Pardeep Du MD Primary Care Provider Delilah Cervantes DO Primary Care Provider [phone] Kirstin Reyes Primary Care Provide r Reason for Referral * MRI/CAT Scan - Closed Specialty Diagnoses / Procedures Referred By Madhav carias Referred To Contact Radiology Diagnoses LLQ abdominal pain Constipation, unspecified constipation type Procedures CT Abdomen/Pelvis CHG CT SCAN,ABDOMENT AND PELVIS,W CONTRAST Gilda Carranza PA-C Phone: tel: fax: [email or web address] Referral ID Status Reason Start Date Expiration Date Visits Re quested Visits Authorized [id number] Closed 07/07/2024 09/05/2024 1 1 Encounter Details Date Type Department Care Team (Latest Contact Info) Description 04/06/2024 Transcribe Orders Virtual Department 30 [place] [address] Gilda Carranza PA-C [address] [place] [address] LLQ abdominal pain (Primary Dx); Constipation, unspecified [...] llq abdomen pain, left lower quadrant [facility] as well as constipation [...] documented as of this encounter Care Teams Biomedical Engineering Internship Relationship Specialty Start Date End Date Pardeep Du MD [address] [place] [address], 2nd [place] [address] francisco [email or web address] PCP - General Internal Medicine 04/01/19 05/18/24 Delilah Cervantes DO [address] [place] [address] PCP - General Family Medicine 05/19/24 05/02/25 Kirstin Reyes PA [address] [place] [address] [place] [address] PCP - General Physician School Childcare Attendant 05/03/25 documented as of this encounter Additional Source Comments The information contained in this document represents components of the legal health record. It is not the complete legal health record.[facility]
--- OUTSIDE RECORDS SUMMARY | 2025-09-16 02:59 | XMS_ITS | Encounter Summary ---
Author Organization [facility] Address [address] [place] [address] Phone Care Team Providers Care Fundraising Assistant Name Role Phone Pardeep Du MD Primary Care Provider Pardeep Du MD Unavailable Jessie Smith RN Unavailable Delilah Cervantes DO Primary Care Provider Kirstin Reyes Primary Care Provide r Encounter Details Date Type Department Care Team (Late st Contact Info) Description 09/13/2021 Transcribe Orders Virtual Department 30 [place] [address] Pardeep Du MD [address] [facility], 2nd [place] [address] francisco [email or web address] Social History Tobacco Use Types Packs/Day Years [...] documented as of this encounter Care Teams Fundraising Assistant Relationship Specialty Start Date End Date Pardeep Du MD [address] [place] [address], 2nd [place] [address] francisco [email or web address] PCP - General Internal Medicine 04/01/19 05/18/24 Delilah Cervantes DO [address] [place] [address] PCP - General Family Medicine 05/19/24 05/02/25 Kirstin Reyes PA [address] [place] [address] [place] [address] PCP - General Physician Feather Stitcher 05/03/25 Pardeep Du MD [address] [place] [address], 2nd [place] [address] francisco [email or web address] Insurance Assigned Provider 08/08/19 07/06/23 Jessie Smith, RN [address] [place] [address] [email or web address] PHCM Custom Feed Mill Operator 12/12/22 01/24/23 documented as of this encounter Additional Source Comments The information contained in this document represents components of the legal health record. It is not the complete legal health record.[facility]
--- OUTSIDE RECORDS SUMMARY | 2025-09-16 02:59 | XMS_ITS | Encounter Summary ---
Author Organization [facility] Address [address] [place] [address] Phone Care Team Providers Care Nutritional Services Cook Name Role Phone Pardeep Du MD Primary Care Provider [phone] Pardeep Du MD Unavailable [phone] Jessie Smith RN Unavailable [phone] Delilah Cervantes DO Primary Care Provider Kirstin Reyes Primary Care Provide r Encounter Details Date Type Department Care Team (Late st Contact Info) Description 12/17/2022 Procedure Pass [facility], [address] [place] [address] Social History Tobacco Use Types Packs/Day Years [...] documented as of this encounter Care Teams Nutritional Services Cook Relationship Specialty Start Date End Date Pardeep Du MD [address] [place] [address], 2nd [place] [address] francisco PCP - General Internal Medicine 04/01/19 05/18/24 Delilah Cervantes DO [address] [place] [address] PCP - General Family Medicine 05/19/24 05/02/25 Kirstin Reyes PA [address] [place] [address] [place] [address] PCP - General Physician Scientologist 05/03/25 Pardeep Du MD [address] [place] [address], 2nd [place] [address] francisco Insurance Assigned Provider 08/08/19 07/06/23 Jessie Smith, RN [address] [place] [address] [email or web address] PHCM High Speed Printer Operator 12/12/22 01/24/23 documented as of this encounter Additional Source Comments The information contained in this document represents components of the legal health record. It is not the complete legal health record.[facility]
--- OUTSIDE RECORDS SUMMARY | 2025-09-16 02:59 | XMS_ITS | Encounter Summary ---
Author Organization [facility] Address [address] [place] [address] Phone Care Team Providers Care Tire Inspector Name Role Phone Pardeep Du MD Primary Care Provider [phone] Pardeep Du MD Unavailable [phone] Jessie Smith RN Unavailable [phone] Delilah Cervantes DO Primary Care Provider [phone] Kirstin Reyes Primary Care Provide r Encounter Details Date Type Department Care Team (Late st Contact Info) Description 03/05/2022 Procedure Pass [facility] - [address] [address] Social History Tobacco Use Types Packs/Day Years [...] education for yourself related to: Learning the [place] Citizen language? Completing high school, earning a [...] 1:02 PM EDT Drake Cha, MEGHAN * [place] Suicide Severity Rating Scale (Screener/Recent Self-Report) Question [...] documented as of this encounter Care Teams Tire Inspector Relationship Specialty Start Date End Date Pardeep Du MD [address] [place] [address], 2nd [place] [address] francisco [email or web address] PCP - General Internal Medicine 04/01/19 05/18/24 Delilah Cervantes DO [address] [place] [address] PCP - General Family Medicine 05/19/24 05/02/25 Kirstin Reeys PA [address] [place] [address] [place] [address] PCP - General Physician Physical Therapy Assistant 05/03/25 Pardeep Du MD [address] [place] [address], [address] [place] [address] francisco Insurance Assigned Provider 08/08/19 07/06/23 Jessie Smith, RN [address] [place] [address] PHCM Director Data Architecture 12/12/22 01/24/23 documented as of this encounter Additional Source Comments The information contained in this document represents components of the legal health record. It is not the complete legal health record.[facility]
--- OUTSIDE RECORDS SUMMARY | 2025-09-16 02:59 | XMS_ITS | Encounter Summary ---
Author Organization [facility] Address [address] [facility] [address] [place] [address] Phone Care Team Providers Care Project Technician Name Role Phone Pardeep Du MD Primary Care Provider [phone] Pardeep Du MD Unavailable [phone] Jessie Smith RN Unavailable [phone] Delilah Cervantes DO Primary Care Provider Kirstin Reyes Primary Care Provide r Encounter Details Date Type Department Care Team (Late st Contact Info) Description 10/18/2020 Procedure Pass [facility] - [address] [place] [address] Social History Tobacco Use Types Packs/Day Years [...] education for yourself related to: Learning the [place] language? Completing high school, earning a high [...] documented as of this encounter Care Teams Project Technician Relationship Specialty Start Date End Date Pardeep Du MD [address] [place] [address], 2nd [place] [address] francisco PCP - General Internal Medicine 04/01/19 05/18/24 Delilah Cervantes DO [address] [place] [address] PCP - General Family Medicine 05/19/24 05/02/25 Kirstin Reyes PA [address] [place] [address] [place] [address] PCP - General Physician Transportation Refrigeration Technician 05/03/25 Pardeep Du MD [address] [place] [address], 2nd [place] [address] francisco Insurance Assigned Provider 08/08/19 07/06/23 Jessie Smith, RN [address] [place] [address] PHCM Lavatory Attendant 12/12/22 01/24/23 documented as of this encounter Additional Source Comments The information contained in this document represents components of the legal health record. It is not the complete legal health record.[facility]
--- OUTSIDE RECORDS SUMMARY | 2025-09-16 02:59 | XMS_ITS | Encounter Summary ---
Author Organization [facility]ly [facility] Address [address] [place] [address] Phone Care Team Providers Care Employee Communications Manager Name Role Phone Pardeep Du MD Primary Care Provider [phone] Pardeep Du MD Unavailable [phone] Jessie Smith RN Unavailable [phone] Delilah Cervantes DO Primary Care Provider Kirstin Reyes Primary Care Provide r Encounter Details Date Type Department Care Team (Late st Contact Info) Description 02/28/2022 Procedure [facility] - [address] [place] [address] Social History Tobacco Use Types Packs/Day Years [...] documented as of this encounter Care Teams Employee Communications Manager Relationship Specialty Start Date End Date Pardeep Du MD [address] [place] [address], 2nd [place] [address] francisco PCP - General Internal Medicine 04/01/19 05/18/24 Delilah Cervantes DO [address] [place] [phone] PCP - General Family Medicine 05/19/24 05/02/25 Kirstin Reyes PA [address] [place] [address] [place] [address] PCP - General Physician Inspector Health Care Facilities 05/03/25 Pardeep Du MD [address] [place] [address], 2nd [place] [address] francisco [email or web address] Insurance Assigned Provider 08/08/19 07/06/23 Jessie Smith, RN [address] [place] [address] [email or web address] PHCM Distributed Generation Project Manager 12/12/22 01/24/23 documented as of this encounter Additional Source Comments The information contained in this document represents components of the legal health record. It is not the complete legal health record.[facility]
--- OUTSIDE RECORDS SUMMARY | 2025-09-16 02:59 | XMS_ITS | Encounter Summary ---
Author Organization [facility] Address [address] [place] [address] Phone Care Team Providers Care Oil Tanker Captain Name Role Phone Pardeep Du MD Primary Care Provider [phone] Pardeep Du MD Unavailable [phone] Jessie Smith RN Unavailable [phone] Delilah Cervantes DO Primary Care Provider Kirstin Reyes Primary Care Provide r Encounter Details Date Type Department Care Team (Late st Contact Info) Description 09/16/2019 Ancillary Orders [facility],Outside Imaging [address] [place], [place] [id number] System, Provider Not In, [facility] [address] [address] Social History Tobacco Use Types Packs/Day Years [...] documented as of this encounter Care Teams Oil Tanker Captain Relationship Specialty Start Date End Date Pardeep Du MD [address] [place] [address], [address] [place] [address] francisco PCP - General Internal Medicine 04/01/19 05/18/24 Delilah Cervantes DO [address] [place] [address] PCP - General Family Medicine 05/19/24 05/02/25 Kirstin Reyes PA [address] [place] [address] [place] [address] PCP - General Physician Camp [place] 05/03/25 Pardeep Du MD [address] [place] [address] francisco Insurance Assigned Provider 08/08/19 07/06/23 Jessie Smith, RN [address] [place] [phone] PHCM Phlebotomy Technologist 12/12/22 01/24/23 documented as of this encounter Additional Source Comments The information contained in this document represents components of the legal health record. It is not the complete legal health record.[facility]
--- OUTSIDE RECORDS SUMMARY | 2025-09-16 02:59 | XMS_ITS | Encounter Summary ---
Author Organization [facility] Address [address] [place] [address] Phone Care Team Providers Care Software Engineering Manager Name Role Phone Pardeep Du MD Primary Care Provider Pardepe Du MD Unavailable [phone] Jessie Smith RN Unavailable [phone] Delilah Cervantes DO Primary Care Provider Kirstin Reyes Primary Care Provide r Encounter Details Date Type Department Care Team (Late st Contact Info) Description 08/07/2021 Procedure Pass [facility], Ct Scan - [address] [address] Social History Tobacco Use Types Packs/Day Years [...] 7:48 PM EDT Aniyah Price RN * [place] Suicide Severity Rating Scale (Screener/Recent Self-Report) Question [...] documented as of this encounter Care Teams Software Engineering Manager Relationship Specialty Start Date End Date Pardeep Du MD [address] [place] [address], [address] [place] [address] PCP - General Internal Medicine 04/01/19 05/18/24 Delilah Cervantes DO [address] [place] [address] PCP - General Family Medicine 05/19/24 05/02/25 Kirstin Reyes PA [address] [place] [address] [place] [address] PCP - General Physician Accounting Lecturer 05/03/25 Pardeep Du MD [address] [place] [address] francisco Insurance Assigned Provider 08/08/19 07/06/23 Jessie Smith, RN [address] [place] [address] [email or web address] PHCM Pantomimist 12/12/22 01/24/23 documented as of this encounter Additional Source Comments The information contained in this document represents components of the legal health record. It is not the complete legal health record.[facility]
--- OUTSIDE RECORDS SUMMARY | 2025-09-16 02:59 | XMS_ITS | Patient Health Record ---
Author Organization [facility] Address [address] [place], [place] [id number] Care Team Providers Care Sales Agent Business Services Name Role Phone Yasmeen ROBERTSON, Verena Primary Care Provider Unava ilHarris Cox Unavailable Reason For Referral No Information Plan Of Treatment No Information Insurance Providers Payer Name Payer Address Payer Phone Subscriber Number Group Number Insured Name Patient Relationship to Insured Coverage Start Date Coverage End Date Medicaid [address] [place] [phone] [id number] Ladonna Zavala Self - patient is the insured
--- OUTSIDE RECORDS SUMMARY | 2025-09-16 02:59 | XMS_ITS | Encounter Summary ---
Author Organization [facility] Address [address] [place] [address] Phone Care Team Providers Care Criminal Judge Name Role Phone Pardeep Du MD Primary Care Provider Pardeep Du MD Unavailable Delilah Cervantes DO Primary Care Provider Kirstin Reyes Primary Care Provide r Encounter Details Date Type Department Care Team (Late st Contact Info) Description 05/06/2023 Ancillary Orders [facility] [address] [place] [address] [place] [address] Pardeep Du MD [address] [place] [address], [address] [place] [address] francisco [email or web address] Abnormal finding on mammography [...] documented as of this encounter Care Teams Criminal Judge Relationship Specialty Start Date End Date Pardeep Du MD [address] [place] [address], 2nd [place] [address] francisco PCP - General Internal Medicine 04/01/19 05/18/24 Delilah Cervantes DO [address] [place] [address] PCP - General Family Medicine 05/19/24 05/02/25 Kirstin Reyes PA [address] [place] [address] [place] [address] PCP - General Physician Education Administrator 05/03/25 Pardeep Du MD [address] [place] [address], 2nd [place] [address] francisco [email or web address] Insurance Assigned Provider 08/08/19 07/06/23 documented as of this encounter Additional Source Comments The information contained in this document represents components of the legal health record. It is not the complete legal health record.[facility]
--- OUTSIDE RECORDS SUMMARY | 2025-09-16 02:59 | XMS_ITS | Encounter Summary ---
Author Organization [facility] Address [address] [place] [address] Phone Care Team Providers Care Sample Stitcher Name Role Phone Pardeep Du MD Primary Care Provider Delilah Cervantes DO Primary Care Provider Kirstin Reyes Primary Care Provide r Encounter Details Date Type Department Care Team (Late st Contact Info) Description 04/06/2024 Procedure Pass [facility], Ct Scan - [address] [address] Social History Tobacco Use Types Packs/Day Years [...] documented as of this encounter Care Teams Sample Stitcher Relationship Specialty Start Date End Date Pardeep Du MD [address] [place] [address], 2[address] [place] [address] francisco [email or web address] PCP - General Internal Medicine 04/01/19 05/18/24 Delilah Cervantes DO [address] [place] [address] PCP - General Family Medicine 05/19/24 05/02/25 Kirstin Reyes PA [address] [place] [address] [facility] [place] [address] PCP - General Physician Ciso 05/03/25 documented as of this encounter Additional Source Comments The information contained in this document represents components of the legal health record. It is not the complete legal health record.[facility]
--- OUTSIDE RECORDS SUMMARY | 2025-09-16 02:59 | XMS_ITS | Encounter Summary ---
Author Organization [facility] Address [address] [facility] [address] [facility] [address] [place] [address] Phone Care Team Providers Care Maintainer Plant Name Role Phone Pardeep Du MD Primary Care Provider [phone] Pardeep Du MD Unavailable [phone] Jessie Smith RN Unavailable [phone] Delilah Cervantes DO Primary Care Provider [phone] Kirstin Reyes Primary Care Provide r Encounter Details Date Type Department Care Team (Late st Contact Info) Description 09/16/2019 Ancillary Orders [facility],Outside Imaging [address] [place], [place] [id number] System, Provider Not In, [facility] [address] [address] Social History Tobacco Use Types Packs/Day Years [...] education for yourself related to: Learning the [place]or[place] language? Completing high school, earning a high [...] documented as of this encounter Care Teams Maintainer Plant Relationship Specialty Start Date End Date Pardeep Du MD [address] [place] [address], [address] [place] [address] francisco [email or web address] PCP - General Internal Medicine 04/01/19 05/18/24 Delilah Cervantes DO [address] [place] [address] PCP - General Family Medicine 05/19/24 05/02/25 Kirstin Reyes PA [address] [place] [address] [place] [address] PCP - General Physician Art Dealer 05/03/25 Pardeep Du MD [address] [place] [address], [address] [place] [address] francisco Insurance Assigned Provider 08/08/19 07/06/23 Jessie Smith, RN [address] [place] [address] PHCM Toll Testboard Worker 12/12/22 01/24/23 documented as of this encounter Additional Source Comments The information contained in this document represents components of the legal health record. It is not the complete legal health record.[facility]
--- OUTSIDE RECORDS SUMMARY | 2025-09-16 02:59 | XMS_ITS | Encounter Summary ---
Author Organization [facility] Address [address] [place] [address] Phone Care Team Providers Care Guard Dance Hall Name Role Phone Pardeep Du MD Primary Care Provider Pardeep Du MD Unavailable [phone] Delilah Cervantes DO Primary Care Provider [phone] Kirstin Reyes Primary Care Provide r Encounter Details Date Type Department Care Team (Late st Contact Info) Description 04/05/2023 Procedure Pass [facility], [facility] [address] [place] [address] Social History Tobacco Use Types Packs/Day Years [...] documented as of this encounter Care Teams Guard Dance Hall Relationship Specialty Start Date End Date Pardeep Du MD [address] [place] [address], 2[address] [place] [address] francisco PCP - General Internal Medicine 04/01/19 05/18/24 Delilah Cervantes DO [address] [place] [address] PCP - General Family Medicine 05/19/24 05/02/25 Kirstin Reyes PA [address] [place] [address] [place] [address] PCP - General Physician Zipper Setter Lockstitch 05/03/25 Pardeep Du MD [address] [place] [address], 2[address] [place] [address] francisco [email or web address] Insurance Assigned Provider 08/08/19 07/06/23 documented as of this encounter Additional Source Comments The information contained in this document represents components of the legal health record. It is not the complete legal health record.[facility]
== END 2025-09-15 15:48 | disposition home or self-care (01) ==
LOC: HO.ENCR 14:33
PROVIDERS: Visit Provider Student in an Organized Health Care Education/Training Program
DX: E03.8 Other specified hypothyroidism (principal); Z68.43 Body mass index [BMI] 50.0-59.9, adult; G47.30 Sleep apnea, unspecified
CPT/HCPCS: 99214

== ENCOUNTER → 2025-09-15 14:32 | Outpatient (BNVA) | payer OTHER, SELFPAY | PROVIDERS: Visit Provider Student in an Organized Health Care Education/Training Program | DX: E03.8 Other specified hypothyroidism (principal); G47.30 Sleep apnea, unspecified; E66.01 Morbid (severe) obesity due to excess calories; Z68.43 Body mass index [BMI] 50.0-59.9, adult; Z79.899 Other long term (current) drug therapy | CPT/HCPCS: 99212 ==

== ENCOUNTER 2025-10-01 11:18 | Outpatient (AMB) | payer OTHER, SELFPAY ==
[2025-10-01 11:28] VITALS: BP 130/74; PULSE 65; O2SAT 98; BMI 60.0
--- NOTE | 2025-10-01 11:28 | A.OFFPC_ITS ---
Vital Signs 10/01/25 11:28 Height 5 ft 9 in Weight 406 lb 4.991 oz BMI 60.0 BP 130/74 Blood Pressure Location Lt brachial Position Sitting Pulse 65 Pulse Source Pulse Oximeter Pulse Oximetry (%) 98 Oxygen Delivery Method Room Air Intake Visit Reasons: f/u heart failure Clinical Research Nurse Required: No Accompanied by: Self / Same As Patient Allergies morphine Allergy (Severe, Verified 10/01/25 11:38) Shortness of Breath Seasonal Allergies Allergy (Severe, Verified 10/01/25 11:38) Sneezing latex (Latex) Allergy (Intermediate, Verified 10/01/25 11:38) ITCHY, RASH , AND FUNGUS oxycodone Allergy (Intermediate, Verified 10/01/25 11:38) Rash opium (anthroposophic) Allergy (Unknown, Verified 10/01/25 11:38) Hives Medication List - Last Reconciled 10/01/25 by Kirstin Reyes PA-C albuterol sulfate 90 mcg/actuation (Proventil HFA) 2 puffs inhalation Q6H PRN [Bed pads As directed] chlorthalidone 25 mg PO DAILY cholecalciferol (vitamin D3) (Vitamin D3) 50 mcg (2 x 25 mcg (1,000 unit)) PO DAILY [CPAP with auto PAP 6-20 cm with heated humidification As directed] cyanocobalamin (vitamin B-12) mcg IM cyclobenzaprine 10 mg PO TID PRN cyclobenzaprine 10 mg PO TID PRN [Depends sanitary pads As directed] fexofenadine 180 mg PO DAILY furosemide 60 mg (1.5 x 40 mg) PO DAILY [hypoallergenic sanitary wipes As directed] ibuprofen 600 mg PO Q6H PRN ketorolac 10 mg PO Q8H PRN [Kneeling Scooter As directed] levothyroxine (Synthroid) 50 mcg PO DAILY lidocaine 5% (Lidoderm) 1 patch topical DAILY PRN MDD remove after 12 hours mecobalamin (vitamin B12) 1,000 mcg subcut .once a week methocarbamol 500 mg PO TID PRN naproxen 500 mg PO BID PRN 10 days [nebulizer As directed] omeprazole 20 mg PO DAILY [Orthopedic neck pillow As directed] prednisone 40 mg (2 x 20 mg) PO DAILY sennosides (senna) 8.6 mg PO BEDTIME PRN Shower Chair As directed sucralfate (Carafate) 1 g PO BID PRN thiamine HCl (vitamin B1) 100 mg PO DAILY 90 days tirzepatide (weight loss) (Zepbound) 2.5 mg (0.5 mL) subcut QWEEK vitamin A palmitate 20,000 units PO DAILY 30 days [wipes As directed] Tobacco use date assessed: 10/01/25 Dental Screening Dental Screen Date: 10/01/25 Did you have a dental visit in the last 12 months?: No Did you have a dental problem in the last 6 months where you did not have access to dental care?: No Was dental information given to patient?: No HPI f/u heart failure HPI Details 55-year-old female with past medical his tory of congestive heart failure, morbid obesity, sleep apnea, bilateral carpal tunnel syndrome, hypertension last seen 06/2025 coming in for follow up. In review of the notes, patient seen by endocrinology 08/2025 started on Zepbound for weight loss and sleep apnea and referred to nutrition. Patient to continue on levothyroxine 50 mcg and referred to General surgery. She was seen in [facility] [place] [facility] 09/05/2025 for back pain discharged with cyclobenzaprine. 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 Presenting for management of multiple chronic conditions, including low back pain and planning for an upcoming breast surgery. patient was diagnosed with atypical ductal hyperplasia of right breast recommending surgical resection followed by high-risk consultation. She reports chronic back pain, which was exacerbated after she underwent physical therapy for her hip, leading her to discontinue the therapy. She has a history of back pain from around 2016 or 2017, for which she received approximately [address] Dawson and successfully avoided an operation. She has been gaining weight, which she attributes to her thyroid medication despite not eating much, and this is affecting a prior garcia operation. Her school based therapist has recommended Zepbound which I am in agreement with as it would benefit her MANJINDER as well as other chronic conditions. She is also requesting ENT eval for possible deviated septum. [facility] Medical History Peripheral edema Essential hypertension Subclinical hypothyroidism Thyromegaly Lipoma of chest wall Chronic diastolic (congestive) heart failure Anal fistula Sinus complaint Sterilization Kidney stone Acute appendicitis Vesicular dermatitis Enlarged lymph node Acute bacterial tonsillitis History of claustrophobia History of anxiety Hx of tendinitis Hx of bursitis History of knee problem Hx of chronic arthritis Family history of heart murmur History of asthma Surgical History History of hand surgery Hx of carpal tunnel repair H/O bilateral mastectomy History of kidney surgery Hx of tubal ligation Hx of tonsillectomy Hx of breast surgery Hx of appendectomy Hx of cholecystectomy Hx of knee surgery History of Achilles tendon repair Family History Mother Accelerated hypertension Arthritis Cancer of stomach Father Arthritis Sister No problems noted. Sister Arthritis Accelerated hypertension Sister No problems noted. Sister No problems noted. Brother Overdose Brother HIV disease Son Asthma Son No problems noted. Son No problems noted. Son No problems noted. Daughter No problems noted. Social History Housing: Apartment Alcohol intake: never Patient Tobacco Use Status: Former Tobacco user Tobacco use type: Cigarette Cigarettes Per Day: 1 Years Smoked: 30 e-Cigarette/Vaping Use: Never Used Second Hand Smoke Exposure: Yes service: No Current occupational status: unemployed Cognitive needs: Yes Hearing needs: No Vision needs: Yes Female Reproductive History Menstrual Age of Menarche: 14 Questionnaire PHQ-9 Over the last 2 weeks, how often have you been bothered by any of the following problems? 1. Little interest or pleasure in doing things: not at all 2. Feeling down, depressed, or hopeless: not at all 3. Trouble falling or staying asleep, or sleeping too much: not at all 4. Feeling tired or having little energy: nearly every day 5. Poor appetite or overeating: nearly every day 6. Feeling bad about yourself - or that you are a failure or have let yourself or your family down: not at all 7. Trouble concentrating on things, such as reading the newspaper or watching television: not at all 8. Moving or speaking so slowly that other people could have noticed. Or the opposite - being so fidgety or restless that you have been moving around a lot more than usual: not at all 9. Thoughts that you would be better off or of hurting yourself in some way: not at all Total score: 6 Source: Developed by Drs. Gonzalez Merida, Jenn Kramer, Matthew Jimeenz and colleagues, with an educational honorio from [facility]. Thrive Questionnaire Date Thrive assessed: 10/01/25 I am a: Patient What is your living situation today?: I have a steady place to live Within the past 12 months, did the food you bought not last and you didn't have the money to get more?: Often true Within the past 12 months, did you worry whether your food would run out before you got money to buy more?: Often true Do you have trouble paying for medicines?: No Do you have trouble getting transportation to medical appointments?: No Do you have trouble paying your heating and electricity bill?: Yes Do you have trouble taking care of your child, family member or friend?: No Do you have trouble with day-to-day activities such as bathing, preparing meals, shopping, managing finances, etc.?: Yes Are you currently unemployed and looking for a job?: Yes Are you interested in more education?: No Please select the resources that you would like help with: None Currently or been in a relationship where the following occur: No concerns reported THRIVE Score: 3 AUDIT C Alcohol Use Questionnaire (AUDIT-C) 1. How often do you have a drink containing alcohol?: Never 3. How often do you have six or more drinks on one occasion?: Never Total Score: 0 DANDY-7 AMB Questionnaire DANDY-7 Date DNADY - 7 assessed: 10/01/25 Feeling nervous, anxious, or on edge: 0 = Not at all Not being able to stop or control worryin = Not at all Worrying too much about different things: 0 = Not at all Trouble relaxin = Not at all Being so restless that it is hard to sit still: 0 = Not at all Becoming easily annoyed or irritable: 0 = Not at all Feeling afraid as if something awful might happen: 0 = Not at all Total DANDY-7 score (0-4 normal; 5-9 mild; 10-14 moderate; 15-21 severe): 0 Source: Developed by Drs. Gonzalez Merida, Jenn Kramer, Matthew Jimenez and colleagues, with an educational honorio from [facility]. Review of Systems Const Denies body aches, Denies chills, Denies fever(s), Denies headache(s) and Denies poor appetite Eyes Reports no additional complaints ENT Denies dysphagia, Denies dizziness, Denies headache(s) and Denies odynophagia Card Denies chest pain, Denies edema, Denies lightheadedness and Denies dyspnea Resp Denies cough and Denies dyspnea GI Denies abdominal pain, Denies dysphagia, Denies nausea, Denies odynophagia and Denies vomiting Reports no additional complaints Musc Reports as per HPI and Reports back pain Skin/Breast Reports system reviewed and no additional complaints, except as documented Neuro Denies dizziness and Denies headache(s) Psych Reports no additional complaints Physical exam (Primary Care) Vital Signs: Last Vital Signs Pulse 65 10/01/25 11:28 BP 130/74 10/01/25 11:28 Pulse Ox 98 10/01/25 11:28 Oxygen Delivery Method Room Air 10/01/25 11:28 BMI result Body Mass Index 60.0 Tobacco/Smoking Status: Tobacco use Status Tobacco use date assessed 10/01/25 10/01/25 11:34 Patient Tobacco Use Status Former Tobacco user 10/01/25 11:34 Tobacco use type Cigarette 10/01/25 11:34 e-Cigarette/Vaping Use Never Used 10/01/25 11:34 PHQ-9: PHQ-9 Score PHQ-9: Total score 6 10/01/25 15:01 Thrive Assessment: Date of Thrive Assessment Date Thrive assessed 10/01/25 10/01/25 11:34 Currently or been in a relationship where the following occur: No concerns reported Const General: cooperative, healthy appearing, comfortable and no acute distress Orientation/consciousness: patient oriented x3 HENMT Head: Yes normocephalic Ears: hearing grossly normal bilaterally General nose exam: Normal external nose present Eyes General: appearance normal, both eyes and all related structures Conjunctivae: conjunctivae normal Neck Neck: Yes full ROM and Yes no lymphadenopathy Resp Effort & Inspection: normal respiratory effort Auscultation: clear to auscultation bilaterally, no crackles, no rales, no rhonchi and no wheezes Cardio Rate: regular rate Rhythm: regular rhythm Skin General skin exam: no rashes or lesions noted Neuro General: patient oriented x3 Gait exam (Neuro): Normal gait present Extrem General: Yes normal to inspection, Yes full ROM and No edema Psych Affect: normal affect Attitude: cooperative Insight: Good insight present (Psych) Judgement: Good judgement present (Psych) Coding Level of Care Code Est Pt Level 4 (48760) Diagnoses Essential hypertension I10 Chronic diastolic (congestive) heart failure I50.32 Hypothyroidism, unspecified type E03.9 Hypothyroidism type: unspecified Morbid obesity due to excess calories E66.01 Sleep apnea with use of continuous positive airway pressure (CPAP) G47.30 Mild intermittent asthma without complication J45.20 Asthma complication type: uncomplicated Asthma persistence: intermittent Asthma severity: mild Lumbar muscle pain M79.18 Nasal septal deviation J34.2 Assessment & Plan Assessment & Plan (1) Essential hypertension: Code(s): I10 - Essential (primary) hypertension Category: Medical Plan: Continue on current blood pressure medication. Avoid salt intake and encourage healthy diet and regular exercise. (2) Chronic diastolic (congestive) heart failure: Comment: Coronary CTA 12/09/2024 Impression: 1. No evidence of hemodynamically significant coronary artery disease. 2. Minimal stenosis due to noncalcified plaque versus artifact mild RCA. 3. Mild stenosis in the mid LAD approximately 25% due to superficial myocardial bridge. Code(s): I50.32 - Chronic diastolic (congestive) heart failure Category: Medical Plan: She has a appointment coming up with Cardiology. (3) Hypothyroid: Code(s): E03.9 - Hypothyroidism, unspecified Category: Medical Qualifiers: Hypothyroidism type: unspecified Qualified Code(s): E03.9 - Hypothyroidism, unspecified Plan: Recently seen by endocrinology and referred to General surgery for goiter. She will continue on levothyroxine at this time and continue to follow with endocrinology. (4) Morbid obesity due to excess calories: Code(s): E66.01 - Morbid (severe) obesity due to excess calories Category: Medical Plan: Healthy diet and regular exercise is encouraged. Recently started on Zepbound by her school based therapist by his currently and prior authorization status with her insurance. I do think she would benefit from this medication as she does have a history of obstructive sleep apnea as well as morbid obesity and the ZEpbound would help with many of her chronic conditions. (5) Sleep apnea with use of continuous positive airway pressure (CPAP): Code(s): G47.30 - Sleep apnea, unspecified Category: Medical Plan: Sleep study revealed moderate to severe sleep apnea prescription was CPAP was sent and has a appointment with Neurology coming up 10/13/2025. She is being fitted for a new mask as the when she currently has a ineffective (6) Asthma: Code(s): J45.909 - Unspecified asthma, uncomplicated Category: Medical Qualifiers: Asthma complication type: uncomplicated Asthma persistence: intermittent Asthma severity: mild Qualified Code(s): J45.20 - Mild intermittent asthma, uncomplicated Plan: Asthma currently controlled on present medications. Continue on albuterol as needed. Avoid triggers such as allergies. Has not had inhaler and new Rx sent. (7) Lumbar muscle pain: Code(s): M79.18 - Myalgia, other site Category: Medical Plan: offered referral to physical therapy or pain management both of which were declined today. She will continue on conservative measurement and follow up as needed for this concern (8) Nasal septal deviation: Code(s): J34.2 - Deviated nasal septum Category: Medical Plan: referral was placed to ENT at patient request Plan This note was constructed using voice recognition software. While every effort has been made to ensure accuracy and chief customer officer, still areas may have been included sometimes these areas may affect the content or meeting of the given symptoms. Total time spent caring for the patient today was 20 minutes. This includes time spent before the visit reviewing the chart, time spent during the visit, and time spent after the visit and documentation. Patient was informed and verbally consented to the use of an ambient scribe for clinic note documentation during this visit. Orders: Referrals Ear/Nose/Throat Referral G47.30 - Sleep apnea, unspecified, J34.2 - Deviated nasal septum Medications: Refilled cyclobenzaprine 10 mg PO TID PRN 14 tabs 0RF muscle spasm albuterol sulfate 90 mcg/actuation (Proventil HFA) 2 puffs inhalation Q6H PRN 6.7 grams 0RF shortness of breath or wheezing ibuprofen 600 mg PO Q6H PRN 20 tabs 0RF pain Discontinued sucralfate (Carafate) Discontinued Reason: Patient no longer taking 1 g PO BID PRN 14 tabs 0RF acid reflux naproxen Discontinued Reason: Patient no longer taking 500 mg PO BID 10 days PRN 20 tabs 0RF pain prednisone Discontinued Reason: Patient no longer taking 40 mg (2 x 20 mg) PO DAILY 8 tabs 0RF cyclobenzaprine Discontinued Reason: Patient no longer taking 10 mg PO TID PRN 20 tabs 0RF muscle spasm ketorolac Do not use this medication with other NSAIDs/ ibuprofen/naproxen. Discontinued Reason: Patient no longer taking 10 mg PO Q8H PRN 12 tabs 0RF pain
== END 2025-10-01 12:15 | disposition home or self-care (01) ==
LOC: HO.HMCH 11:19
DX: I10 Essential (primary) hypertension (principal); I50.32 Chronic diastolic (congestive) heart failure; E66.01 Morbid (severe) obesity due to excess calories; Z68.33 Body mass index [BMI] 33.0-33.9, adult; E03.9 Hypothyroidism, unspecified; G47.30 Sleep apnea, unspecified; J45.20 Mild intermittent asthma, uncomplicated; M79.18 Myalgia, other site; J34.2 Deviated nasal septum

== ENCOUNTER → 2025-10-01 11:18 | Outpatient (BNVA) | payer OTHER, SELFPAY | DX: I11.0 Hypertensive heart disease with heart failure (principal); I50.32 Chronic diastolic (congestive) heart failure; E03.9 Hypothyroidism, unspecified; E66.01 Morbid (severe) obesity due to excess calories; G47.30 Sleep apnea, unspecified; J45.20 Mild intermittent asthma, uncomplicated; M79.18 Myalgia, other site; J34.2 Deviated nasal septum; Z68.44 Body mass index [BMI] 60.0-69.9, adult | CPT/HCPCS: 99212 ==

== ENCOUNTER 2025-10-13 12:35 | Outpatient (AMB) | payer OTHER, SELFPAY ==
[2025-10-13 12:54] VITALS: BP 136/84; PULSE 72; O2SAT 97; BMI 58.7
--- NOTE | 2025-10-13 12:54 | A.OFFVIS_ITS ---
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 Sleep study revealed moderate to severe sleep apnea(AHI-20, LAILA-71%) prescription was CPAP was sent to [facility]. She is being fitted for a new mask as the when she currently has a ineffective. Patient received new mask. Stage Set Designer Required: Yes Stage Set Designer Services: Stage Set Designer Present Stage Set Designer Name: CAMMIE [id number] Information Interpreted: non-clinical & clinical Accompanied by: Self / Same As Patient Allergies morphine Allergy (Severe, Verified 10/13/25 13:03) Shortness of Breath Seasonal Allergies Allergy (Severe, Verified 10/13/25 13:03) Sneezing latex (Latex) Allergy (Intermediate, Verified 10/13/25 13:03) ITCHY, RASH , AND FUNGUS oxycodone Allergy (Intermediate, Verified 10/13/25 13:03) Rash opium (anthroposophic) Allergy (Unknown, Verified 10/13/25 13:03) Hives HPI Comments Details: 55 year old female is here for an evaluation of MANJINDER by her PCP Kirstin Reyes. HST c/w moderate manjinder AHI is 20/hr and O2 desaturation to 71% with nocturnal hypoxemia, Oxygen desaturation <88% for 26 min and 44% snoring. days for 2 hours 37min use, due to machine now working well, she uses a full face mask and started using a cervical pillow, her use is now starting to gradually improve. She has been diagnosed with MANJINDER and is unable to use her machine due to issues with the mask having many leaks. The pressures ramp up quickly and now have improved. She goes to bed at midnight and wakes up at 6am, with 2 bathroom breaks. She has bruxism and clenches her teeth. She wakes up several times at night with dry mouth and headaches. She is feeling more active and energetic with the use of her cpap machine. She is taking furosemide for bilateral lower extremity edema. RLS symptoms, l foot radiating paresthesias in her calves down. She wakes up several times a night due to lower back pain l. hip pain, will take ibuprofen and this helps to alleviate the symptoms. Her memory is stable. Mood is low. She denies smoking, and alcohol use. [facility] Medical History Peripheral edema Essential hypertension Subclinical hypothyroidism Thyromegaly Lipoma of chest wall Chronic diastolic (congestive) heart failure Anal fistula Sinus complaint Sterilization Kidney stone Acute appendicitis Vesicular dermatitis Enlarged lymph node Acute bacterial tonsillitis History of claustrophobia History of anxiety Hx of tendinitis Hx of bursitis History of knee problem Hx of chronic arthritis Family history of heart murmur History of asthma Surgical History History of hand surgery Hx of carpal tunnel repair H/O bilateral mastectomy History of kidney surgery Hx of tubal ligation Hx of tonsillectomy Hx of breast surgery Hx of appendectomy Hx of cholecystectomy Hx of knee surgery History of Achilles tendon repair Family History Mother Accelerated hypertension Arthritis Cancer of stomach Father Arthritis Sister No problems noted. Sister Arthritis Accelerated hypertension Sister No problems noted. Sister No problems noted. Brother Overdose Brother HIV disease Son Asthma Son No problems noted. Son No problems noted. Son No problems noted. Daughter No problems noted. Social History Housing: Apartment Alcohol intake: never Patient Tobacco Use Status: Former Tobacco user Tobacco use type: Cigarette Cigarettes Per Day: 1 Years Smoked: 30 e-Cigarette/Vaping Use: Never Used Second Hand Smoke Exposure: Yes service: No Current occupational status: unemployed Cognitive needs: Yes Hearing needs: No Vision needs: Yes Female Reproductive History Menstrual Age of Menarche: 14 Physical Exam Vital Signs: Last Vital Signs Pulse 72 10/13/25 12:54 BP 136/84 10/13/25 12:54 Pulse Ox 97 10/13/25 12:54 Oxygen Delivery Method Room Air 10/13/25 12:54 BMI result Body Mass Index 58.7 Const Orientation/consciousness: patient oriented x3 HEENT Face and sinus: Yes normal facial exam Mouth: other (mallmpti score of 3) Eyes Pupils: Equal, round and reactive pupils present Neck Other: limited rom on ext and flexion Neuro Other: mild oral tremors upper extremity mild tremors gait is off balance General: patient oriented x3 and moves all extremities Cranial nerves: Yes Equal, round and reactive pupils present, Yes Normal accommodation reflex present and Yes Ability to bilaterally rotate head present Cognition (Neuro): normal cognition Motor exam (neuro): Abnormal motor strength present and Abnormal muscle tone present Psych Appearance: grossly normal Mental Status: mental status grossly normal Attitude: cooperative Thought process: Normal thought process present Results Reviewed Results Reviewed: HST c/w manjinder AHI is 20/hr and O2 desaturation to 71% with nocturnal hypoxemia, Oxygen desaturation <88% for 26 min and 44% snoring. IMPRESSION: 1. This is an abnormal study. 2. 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 3. There is no electrodiagnostic evidence for ulnar neuropathy, brachial plexopathy, or cervical radiculopathy. Assessment & Plan Assessment & Plan (1) Excessive daytime sleepiness: Code(s): G47.19 - Other hypersomnia Category: Medical (2) MANJINDER (obstructive sleep apnea): Comment: moderate sleep apnea. Code(s): G47.33 - Obstructive sleep apnea (adult) (pediatric) Category: Medical (3) Nocturnal hypoxemia: Comment: o2 desaturation <88% for 26min Code(s): G47.34 - Idiopathic sleep related nonobstructive alveolar hypoventilation Category: Medical Plan MANJINDER moderate severe with nocturnal hypoxemia, HST reviewed with pt. and pt education provided re compliance and use of her machine daily. Nocturnal hypoxemia pulse oximetry, ENT f/u in December,.side unable to breath. Dr. Pickard. Nasal Septal Deviation. RLS symptoms will monitor paresthesias. Start magnesium 400mg po daily at bedtime. BMI is elevated Tirzepatide 2.5mg subcut qweekly. pending insurance, She is i nterested in weight management will consider referral. Labs reviewed with pt. F/U in 3 months Orders: Orders Overnight Pulse Oximetry Today G47.33 - Obstructive sleep apnea (adult) (pediatric), G47.34 - Idiopathic sleep related nonobstructive alveolar hypoventilation Medications: New magnesium oxide 400 mg PO DAILY 90 tabs 0RF Patient Instructions: Please complete the following fasting labs to rule out deficiencies. CBC/CMP/ B12/ Vit D/ TSH/ Homocysteine and MMA/ Ferritin. Sleep Hygiene provided: set a scheduled bedtime and wake time to help regulate the circadian rhythm and balance the release of pituitary hormones. Sleep in a dark room, temperatures below 68 degrees, and no devices n bed. Limit caffeinated products 6 hours prior to bed, and limit fluids 2-4 hours prior to bed. Gentle night yoga, diffusing essential oils, and playing soft music can be relaxing. Coding Level of Care Code New Pt Level 4 (25555) Diagnoses Excessive daytime sleepiness G47.19 MANJINDER (obstructive sleep apnea) G47.33 Nocturnal hypoxemia G47.34 Sleep Questionnaire Difficulty falling asleep: No Difficulty staying asleep?: No Number of arousals: 3-4 Snoring: Yes Witnessed apneas: Yes Gasping arousals: Yes Nocturia: Yes GERD: Yes Vivid dreams: Yes Acting out dreams: No Abnormal behavior in sleep: No Abnormal movements in sleep: No Morning headaches: Yes Excessive daytime sleepiness: Yes Daytime naps: Yes Restless legs: Yes Hallucinations: No Sleep paralysis: No Drop attacks: No Sleep Study: Yes CPAP: Yes
--- OUTSIDE RECORDS SUMMARY | 2025-10-13 16:27 | XMS_ITS | Encounter Summary ---
Author Organization [facility] Address [address] [facility] [address] [facility] [address] [place] [address] Phone Care Team Providers Care Pump Room Operator Name Role Phone Pardeep Du MD Primary Care Provider +1- [phone] Pardeep Du MD Unavailable [phone] Jessie Smith RN Unavailable [phone] Delilah Cervantes DO Primary Care Provider Kirstin Reyes Primary Care Provide r Encounter Details Date Type Department Care Team (Late st Contact Info) Description 10/18/2020 Procedure Pass [facility] - [address] [place] [address] Social History Tobacco Use Types Packs/Day Years [...] education for yourself related to: Learning the Emirati language? Completing high school, earning a high [...] documented as of this encounter Care Teams Pump Room Operator Relationship Specialty Start Date End Date Pardeep Du MD [address] [place] [address], 2nd [place] [address] francisco PCP - General Internal Medicine 04/01/19 05/18/24 Delilah Cervantes DO [address] [place] [address] PCP - General Family Medicine 05/19/24 05/02/25 Kirstin Reyes PA [address] [place] [address] [facility] [place] [address] PCP - General Physician On Call 05/03/25 Pardeep Du MD [address] [place] [address], 2nd [place] [address] francisco [email or web address] Insurance Assigned Provider 08/08/19 07/06/23 Jessie Smith, RN [address] [place] [address] [email or web address] PHCM Security Test Engineer 12/12/22 01/24/23 documented as of this encounter Additional Source Comments The information contained in this document represents components of the legal health record. It is not the complete legal health record.[facility]
--- OUTSIDE RECORDS SUMMARY | 2025-10-13 16:30 | XMS_ITS | Encounter Summary ---
Author Organization [facility] Address [address] [facility] [address] [place] [address] Phone Care Team Providers Care Media Relations Coordinator Name Role Phone Kirstin Reyes Primary Care Provide r Encounter Details Date Type Department Care Team (Late st Contact Info) Description 05/03/2025 Procedure Pass [facility] Admitting Dept Virtual Department 30 [place] [address] Social History Tobacco Use Types Packs/Day Years [...] as of this encounter Care Teams Media Relations Coordinator Relationship Specialty Start Date End Date Kirstin Reyes PA [address] [place] [address] [place] [address] PCP - General Physician Vice President Education 05/03/25 documented as of this encounter Additional Source Comments The information contained in this document represents components of the legal health record. It is not the complete legal health record.[facility]
--- OUTSIDE RECORDS SUMMARY | 2025-10-13 16:30 | XMS_ITS | Encounter Summary ---
Author Organization [facility] Address [address] [place] [address] Phone Care Team Providers Care Hospitality Workers Name Role Phone Pardeep Du MD Primary Care Provider [phone]- [phone] Pardeep Du MD Unavailable [phone] Jessie Smith RN Unavailable [phone] Delilah Cervantes DO Primary Care Provider Kirstin Reyes Primary Care Provide r Encounter Details Date Type Department Care Team (Late st Contact Info) Description 12/17/2022 Procedure Pass [facility], [address] [place] [address] Social History Tobacco Use Types Packs/Day Years [...] documented as of this encounter Care Teams Hospitality Workers Relationship Specialty Start Date End Date Pardeep Du MD [address] [place] [address], 2nd [place] [address] francisco PCP - General Internal Medicine 04/01/19 05/18/24 Delilah Cervantes DO [address] [place] [address] PCP - General Family Medicine 05/19/24 05/02/25 Kirstin Reyes PA [address] [place] [address] [place] [address] PCP - General Physician Interpretive Naturalist 05/03/25 Pardeep Du MD [address] [place] [address], 2nd [place] [address] francisco [email or web address] Insurance Assigned Provider 08/08/19 07/06/23 Jessie Smith, RN 10 [place] [address] PHCM Power Cutting Machine Operator 12/12/22 01/24/23 documented as of this encounter Additional Source Comments The information contained in this document represents components of the legal health record. It is not the complete legal health record.[facility]
--- OUTSIDE RECORDS SUMMARY | 2025-10-13 16:30 | XMS_ITS | Encounter Summary ---
Author Organization [facility] Address [address] [place] [address] Phone Care Team Providers Care Ship Manager Name Role Phone Pardeep Du MD Primary Care Provider [phone] Pardeep Du MD Unavailable Jessie Smith RN Unavailable [phone] Delilah Cervantes DO Primary Care Provider Kirstin Reyes Primary Care Provide r Encounter Details Date Type Department Care Team (Late st Contact Info) Description 05/04/2019 Ancillary Orders [facility] [address] [place] [address] [place] [address] Andrew Alberto MD [address] [place] [address] 2nd Flr [place] [id number] [email or web address] Pain in both knees, unspecified chronicity Social [...] to medium sized joint effusion. POS - [id number] Narrative 05/04/2019 1:28 PM EDT Left knee [...] to medium sized joint effusion. POS - [id number] Andrew Alberto MD IMG XR LOWER EXTREMITY F inal Result * XR KNEE 4 OR MORE VIEWS (RIGHT) (05/04/2019 1:07 PM EDT) Anatomical Region Laterality Modality Knee Right Radiographic Jesika ging 05/04/2019 1:27 PM EDT Impressions 05/04/2019 1:28 PM EDT Moderate medial compartment osteoarthritis. No erosive changes or bony lesion seen. Prominent joint effusion. POS - [id number] Narrative 05/04/2019 1:28 PM EDT Right knee [...] bonylesion seen. Prominent joint effusion. POS - [id number] Andrew Alberto MD IMG XR LOWER EXTREMITY [...] documented as of this encounter Care Teams Ship Manager Relationship Specialty Start Date End Date Pardeep Du MD [address] [place] [address], [address] [place] [address] francisco [email or web address] PCP - General Internal Medicine 04/01/19 05/18/24 Delilah Cervantes DO [address] [place] [address] PCP - General Family Medicine 05/19/24 05/02/25 Kirstin Reyes PA [address] [place] [address] PCP - General Physician Loans Officer 05/03/25 Pardeep Du MD [address] [place] [address] francisco Insurance Assigned Provider 08/08/19 07/06/23 Jessie Smith, RN [address] [place] [address] PHCM Associate Professor Of Media Arts 12/12/22 01/24/23 documented as of this encounter Additional Source Comments The information contained in this document represents components of the legal health record. It is not the complete legal health record.[facility]
--- OUTSIDE RECORDS SUMMARY | 2025-10-13 16:31 | XMS_ITS | Encounter Summary ---
Author Organization [facility] Address [address] [place] [address] Phone Care Team Providers Care Physician Coding Specialist Name Role Phone Pardeep Du MD Primary Care Provider [phone]- [phone] Pardeep Du MD Unavailable [phone] Jessie Smith RN Unavailable [phone] Delilah Cervantes DO Primary Care Provider Kirstin Reyes Primary Care Provide r Encounter Details Date Type Department Care Team (Late st Contact Info) Description 09/16/2019 Ancillary Orders [facility],Outside Imaging 30 [place], [place] [id number] System, Provider Not In, [facility] [address] [address] Social History Tobacco Use Types Packs/Day Years [...] documented as of this encounter Care Teams Physician Coding Specialist Relationship Specialty Start Date End Date Pardeep Du MD [address] [place] [address], [address] [place] [address] francisco PCP - General Internal Medicine 04/01/19 05/18/24 Delilah Cervantes DO [address] [place] [address] PCP - General Family Medicine 05/19/24 05/02/25 Kirstin Reyes PA [address] [place] [address] [place] [address] PCP - General Physician Nail Technician 05/03/25 Pardeep Du MD [address] [place] [address] francisco Insurance Assigned Provider 08/08/19 07/06/23 Jessie Smith, RN [address] [place] [address] PHCM Stars Specialist 12/12/22 01/24/23 documented as of this encounter Additional Source Comments The information contained in this document represents components of the legal health record. It is not the complete legal health record.[facility]
--- OUTSIDE RECORDS SUMMARY | 2025-10-13 16:31 | XMS_ITS | Encounter Summary ---
Author Organization [facility] Address [address] [facility] [address] [place] [address] Phone Care Team Providers Care Siphoner Name Role Phone Pardeep Du MD Primary Care Provider [phone]- [phone] Pardeep Du MD Unavailable [phone] Jessie Smith RN Unavailable [phone] Delilah Cervantes DO Primary Care Provider Kirstin Reyes Primary Care Provide r Encounter Details Date Type Department Care Team (Late st Contact Info) Description 04/06/2022 Procedure Pass [facility]oscopy Admitting Dept Virtual Department 30 [place], [place] [id number] Social History Tobacco Use Types Packs/Day Years [...] education for yourself related to: Learning the Scottish language? Completing high school, earning a high [...] documented as of this encounter Care Teams Siphoner Relationship Specialty Start Date End Date Pardeep Du MD [address] [place] [address], 2nd [place] [address] francisco PCP - General Internal Medicine 04/01/19 05/18/24 Delilah Cervantes DO [address] [place] [address] PCP - General Family Medicine 05/19/24 05/02/25 Kirstin Reyes PA NPI: [id number] [place] [address] [place] [address] PCP - General Physician Orthotist Or Prosthetist 05/03/25 Pardeep Du MD [address] [place] [address], 2nd [place] [address] francisco [email or web address] Insurance Assigned Provider 08/08/19 07/06/23 Jessie Smith, RN [address] [place] [address] [email or web address] PHCM Acid Operator 12/12/22 01/24/23 documented as of this encounter Additional Source Comments The information contained in this document represents components of the legal health record. It is not the complete legal health record.[facility]
--- OUTSIDE RECORDS SUMMARY | 2025-10-13 16:31 | XMS_ITS | Encounter Summary ---
Author Organization [facility] Address [address] [facility] [address] [place] [address] Phone Care Team Providers Care Seat Cover Installer Name Role Phone Pardeep Du MD Primary Care Provider +1- [phone] Pardeep Du MD Unavailable [phone] Jessie Smith RN Unavailable [phone] Delilah Cervantes DO Primary Care Provider [phone] Kirstin Reyes Primary Care Provide r Encounter Details Date Type Department Care Team (Late st Contact Info) Description 09/16/2019 Ancillary Orders [facility],Outside Imaging 30 [place], [place] [phone] System, Provider Not In, [facility] [address] [address] Social History Tobacco Use Types Packs/Day Years [...] education for yourself related to: Learning the Tongan language? Completing high school, earning a high [...] documented as of this encounter Care Teams Seat Cover Installer Relationship Specialty Start Date End Date Pardeep Du MD [address] [place] [address], [address] [place] [address] francisco PCP - General Internal Medicine 04/01/19 05/18/24 Delilah Cervantes DO [address] [place] [address] PCP - General Family Medicine 05/19/24 05/02/25 Kirstin Reyes PA [address] [place] [address] [place] [address] PCP - General Physician Health Promotion Manager 05/03/25 Pardeep Du MD [address] [place] [address] francisco Insurance Assigned Provider 08/08/19 07/06/23 Jessie Smith, RN [address] [place] [address] PHCM Hardware Installer 12/12/22 01/24/23 documented as of this encounter Additional Source Comments The information contained in this document represents components of the legal health record. It is not the complete legal health record.[facility]
--- OUTSIDE RECORDS SUMMARY | 2025-10-13 16:31 | XMS_ITS | Encounter Summary ---
Author Organization [facility] Address [address] [place] [address] Phone Care Team Providers Care Rubber Factory Worker Name Role Phone Pardeep Du MD Primary Care Provider [phone]- [phone] Pardeep Du MD Unavailable [phone] Jessie Smith RN Unavailable [phone] Delilah Cervantes DO Primary Care Provider Kirstin Reyes Primary Care Provide r Encounter Details Date Type Department Care Team (Late st Contact Info) Description 09/16/2019 Ancillary Orders [facility],Outside Imaging 30 [place], [place] [phone] System, Provider Not In, [facility] [address] [address] Social History Tobacco Use Types Packs/Day Years [...] education for yourself related to: Learning the Belizean language? Completing high school, earning a high [...] documented as of this encounter Care Teams Rubber Factory Worker Relationship Specialty Start Date End Date Pardeep Du MD [address] [place] [address], [address] [place] [address] francisco PCP - General Internal Medicine 04/01/19 05/18/24 Delilah Crevantes DO [address] [place] [address] PCP - General Family Medicine 05/19/24 05/02/25 Kirstin Reyes PA [address] [place] [address] [place] [address] PCP - General Physician Customs Investigator 05/03/25 Pardeep Du MD [address] [place] [address] francisco Insurance Assigned Provider 08/08/19 07/06/23 Jessie Smith, RN [address] [place] [address] PHCM Oncology Physician Assistant 12/12/22 01/24/23 documented as of this encounter Additional Source Comments The information contained in this document represents components of the legal health record. It is not the complete legal health record.[facility]
--- OUTSIDE RECORDS SUMMARY | 2025-10-13 16:31 | XMS_ITS | Encounter Summary ---
Author Organization [facility] Address [address] [facility] [address] [facility] [address] [place] [address] Phone Care Team Providers Care Plant Production Worker Name Role Phone Pardeep Du MD Primary Care Provider [phone]- [phone] Pardeep Du MD Unavailable [phone] Jessie Smith RN Unavailable [phone] Delilah Cervantes DO Primary Care Provider [phone] Kirstin Reyes Primary Care Provide r Encounter Details Date Type Department Care Team (Late st Contact Info) Description 09/16/2019 Ancillary Orders [facility],Outside Imaging 30 [place], [place] [phone] System, Provider Not In, PhD Partners [address] [address] Social History Tobacco Use Types Packs/Day Years [...] as of this encounter Care Teams Plant Production Worker Relationship Specialty Start Date End Date Pardeep Du MD [address] [place] [address], [address] [place] [address] francisco PCP - General Internal Medicine 04/01/19 05/18/24 Delilah Cervantes DO [address] [place] [address] PCP - General Family Medicine 05/19/24 05/02/25 Kirstin Reyes PA [address] [place] [address] [place] [address] PCP - General Physician Career Representative 05/03/25 Pardeep Du MD [address] [place] [address] francisco Insurance Assigned Provider 08/08/19 07/06/23 Jessie Smith, RN [address] [place] [address] PHCM Case Making Machine Operator 12/12/22 01/24/23 documented as of this encounter Additional Source Comments The information contained in this document represents components of the legal health record. It is not the complete legal health record.[facility]
--- OUTSIDE RECORDS SUMMARY | 2025-10-13 16:31 | XMS_ITS | Encounter Summary ---
Author Organization [facility] Address [address] [facility] [address] [facility] [address] [place] [address] Phone Care Team Providers Care Seat Maker Name Role Phone Pardeep Du MD Primary Care Provider [phone]- [phone] Pardeep Du MD Unavailable [phone] Jessie Smith RN Unavailable [phone] Delilah Cervantes DO Primary Care Provider Kirstin Reyes Primary Care Provide r Encounter Details Date Type Department Care Team (Late st Contact Info) Description 02/28/2022 Procedure Pass [facility] - [address] [place] [address] Social History Tobacco Use Types Packs/Day Years [...] education for yourself related to: Learning the Grenadian language? Completing high school, earning a high [...] as of this encounter Care Teams Seat Maker Relationship Specialty Start Date End Date Pardeep Du MD [address] [place] [address], 2nd [place] [address] francisco PCP - General Internal Medicine 04/01/19 05/18/24 Delilah Cervantes DO [address] [place] [address] PCP - General Family Medicine 05/19/24 05/02/25 Kirstin Reyes PA [address] [place] [address] [place] [address] PCP - General Physician Hand Plug Shaper 05/03/25 Pardeep Du MD [address] [place] [address], 2nd [place] [address] francisco [email or web address] Insurance Assigned Provider 08/08/19 07/06/23 Jessie Smith, RN [address] [place] [address] [email or web address] Retail Furniture Sales 12/12/22 01/24/23 documented as of this encounter Additional Source Comments The information contained in this document represents components of the legal health record. It is not the complete legal health record.[facility]
--- OUTSIDE RECORDS SUMMARY | 2025-10-13 16:31 | XMS_ITS | Encounter Summary ---
Author Organization [facility] Address [address] [facility] [address] [place] [address] Phone Care Team Providers Care Dental Technologist Name Role Phone Pardeep Du MD Primary Care Provider [phone]- [phone] Pardeep Du MD Unavailable [phone] Jessie Smith RN Unavailable [phone] Delilah Cervantes DO Primary Care Provider Kirstin Reyes Primary Care Provide r Encounter Details Date Type Department Care Team (Late st Contact Info) Description 02/28/2022 Procedure Pass [facility] - [address] [place] [address] Social History Tobacco Use Types Packs/Day Years [...] as of this encounter Care Teams Dental Technologist Relationship Specialty Start Date End Date Pardeep Du MD [address] [place] [address], 2nd [place] [address] francisco PCP - General Internal Medicine 04/01/19 05/18/24 Delilah Cervantes DO [address] [place] [address] PCP - General Family Medicine 05/19/24 05/02/25 Kirstin Reyes PA [address] [place] [address] [place] [address] PCP - General Physician Manager Internet 05/03/25 Pardeep Du MD [address] [place] [address], 2nd [place] [address] francisco [email or web address] Insurance Assigned Provider 08/08/19 07/06/23 Jessie Smith, RN [address] [place] [address] [email or web address] Early Head Start Director 12/12/22 01/24/23 documented as of this encounter Additional Source Comments The information contained in this document represents components of the legal health record. It is not the complete legal health record.[facility]
--- OUTSIDE RECORDS SUMMARY | 2025-10-13 16:31 | XMS_ITS | Encounter Summary ---
Author Organization [facility] Address [address] [facility] [address] [place] [address] Phone Care Team Providers Care Hand Woodworking Sander Name Role Phone Pardeep Du MD Primary Care Provider Pardeep Du MD Unavailable [phone] Jessie Smith RN Unavailable [phone] Delilah Cervantes DO Primary Care Provider [phone] Kirstin Reyes Primary Care Provide r Encounter Details Date Type Department Care Team (Late st Contact Info) Description 03/05/2022 Procedure Pass [facility], [facility] - [address] [address] Social History Tobacco Use Types Packs/Day Years [...] 1:02 PM EDT Drake Cha, MEGHAN * [place] Suicide Severity Rating Scale (Screener/Recent Self-Report) Question [...] as of this encounter Care Teams Hand Woodworking Sander Relationship Specialty Start Date End Date Pardeep Du MD [address] [place] [address], [address] [place] [address] francisco PCP - General Internal Medicine 04/01/19 05/18/24 Delilah Cervantes DO [address] [place] [address] PCP - General Family Medicine 05/19/24 05/02/25 Kirstin Reyes PA [address] [place] [address] [place] [address] PCP - General Physician Toe Former [employer] 05/03/25 Pardeep Du MD [address] [place] [address], [address] [place] [address] francisco Insurance Assigned Provider 08/08/19 07/06/23 Jessie Smith, RN [address] [place] [address] PHCM Mobile Home Mechanic 12/12/22 01/24/23 documented as of this encounter Additional Source Comments The information contained in this document represents components of the legal health record. It is not the complete legal health record.[facility]
--- OUTSIDE RECORDS SUMMARY | 2025-10-13 16:31 | XMS_ITS | Encounter Summary ---
Author Organization [facility] Address [address] [facility] [address] [place] [address] Phone Care Team Providers Care Electric Knife Operator Name Role Phone Pardeep Du MD Primary Care Provider [phone]- [phone] Pardeep Du MD Unavailable [phone] Jessie Smith RN Unavailable [phone] Delilah Cervantes DO Primary Care Provider Kirstin Reyes Primary Care Provide r Encounter Details Date Type Department Care Team (Late st Contact Info) Description 09/16/2019 Ancillary Orders [facility],Outside Imaging 30 [place], [place] [phone] System, Provider Not In, PhD Partners [address] [address] Social History Tobacco Use Types Packs/Day Years [...] education for yourself related to: Learning the Anguillan language? Completing high school, earning a high [...] documented as of this encounter Care Teams Electric Knife Operator Relationship Specialty Start Date End Date Pardeep Du MD [address] [place] [address], [address] [place] [address] francisco PCP - General Internal Medicine 04/01/19 05/18/24 Delilah Cervantes DO [address] [place] [address] PCP - General Family Medicine 05/19/24 05/02/25 Kirstin Reyes PA [address] [place] [address] [place] [address] PCP - General Physician Food Counter Worker 05/03/25 Pardeep Du MD [address] [place] [address] francisco Insurance Assigned Provider 08/08/19 07/06/23 Jessie Smith, RN [address] [place] [address] PHCM Production Trainer 12/12/22 01/24/23 documented as of this encounter Additional Source Comments The information contained in this document represents components of the legal health record. It is not the complete legal health record.[facility]
--- OUTSIDE RECORDS SUMMARY | 2025-10-13 16:31 | XMS_ITS | Encounter Summary ---
Author Organization [facility] Address [address] [place] [address] Phone Care Team Providers Care Director Epidemiology Name Role Phone Pardeep Du MD Primary Care Provider [phone] Pardeep Du MD Unavailable [phone] Jessie Smith RN Unavailable [phone] Delilah Cervantes DO Primary Care Provider Kirstin Reyes Primary Care Provide r Encounter Details Date Type Department Care Team (Late st Contact Info) Description 05/10/2020 Procedure Pass [facility], [address] [place] [address] Social History Tobacco Use Types Packs/Day Years [...] as of this encounter Care Teams Director Epidemiology Relationship Specialty Start Date End Date Pardeep Du MD [address] [place] [address], [address] [place] [address] francisco PCP - General Internal Medicine 04/01/19 05/18/24 Delilah Cervantes DO [address] [place] [address] PCP - General Family Medicine 05/19/24 05/02/25 Kirstin Reyes PA [address] [place] [address] [place] [address] PCP - General Physician Electric Car Operator 05/03/25 Pardeep Du MD [address] [place] [address], [address] [place] [address] francisco Insurance Assigned Provider 08/08/19 07/06/23 Jessie Smith, RN [address] [place] [address] PHCM Angle Roll Operator 12/12/22 01/24/23 documented as of this encounter Additional Source Comments The information contained in this document represents components of the legal health record. It is not the complete legal health record.[facility]
--- OUTSIDE RECORDS SUMMARY | 2025-10-13 16:31 | XMS_ITS | Encounter Summary ---
Author Organization [facility] Address [address] [facility] [address] [place] [address] Phone Care Team Providers Care Adjunct Instructor Name Role Phone Pardeep Du MD Primary Care Provider [phone] Pardeep Du MD Unavailable [phone] Jessie Smith RN Unavailable [phone] Delilah Cervantes DO Primary Care Provider [phone] Kirstin Reyes Primary Care Provide r Encounter Details Date Type Department Care Team (Late st Contact Info) Description 09/16/2019 Ancillary Orders [facility] [address] [place], [place] [id number] System, Provider Not In, [facility] [address] [address] Social History Tobacco Use Types Packs/Day Years [...] documented as of this encounter Care Teams Adjunct Instructor Relationship Specialty Start Date End Date Pardeep Du MD [address] [place] [address], [address] [place] [address] francisco PCP - General Internal Medicine 04/01/19 05/18/24 Delilah Cervantes DO [address] [place] [address] PCP - General Family Medicine 05/19/24 05/02/25 Kirstin Reyes PA [address] [place] [address] [place] [address] PCP - General Physician Coil Winder 05/03/25 Pardeep Du MD [address] [place] [address] francisco Insurance Assigned Provider 08/08/19 07/06/23 Jessie Smith, RN [address] [place] [address] PHCM Union Organizer 12/12/22 01/24/23 documented as of this encounter Additional Source Comments The information contained in this document represents components of the legal health record. It is not the complete legal health record.[facility]
--- OUTSIDE RECORDS SUMMARY | 2025-10-13 16:32 | XMS_ITS | Encounter Summary ---
Author Organization [facility] Address [address] [facility] [address] [place] [address] Phone Care Team Providers Care Dining Services Director Name Role Phone Pardeep Du MD Primary Care Provider Delilah Cervantes DO Primary Care Provider Kirstin Reyes Primary Care Provide r Encounter Details Date Type Department Care Team (Late st Contact Info) Description 11/29/2023 Procedure Pass [facility], [address] [id number] Social History Tobacco Use Types Packs/Day Years [...] documented as of this encounter Care Teams Dining Services Director Relationship Specialty Start Date End Date Pardeep Du MD [address] [place] [address], 2nd [place] [address] francisco PCP - General Internal Medicine 04/01/19 05/18/24 Delilah Cervantes DO [address] [place] [address] PCP - General Family Medicine 05/19/24 05/02/25 Kirstin Reyes PA [address] [place] [address] [place] [address] PCP - General Physician Merry Go Round Attendant 05/03/25 documented as of this encounter Additional Source Comments The information contained in this document represents components of the legal health record. It is not the complete legal health record.[facility]
--- OUTSIDE RECORDS SUMMARY | 2025-10-13 16:32 | XMS_ITS | Encounter Summary ---
Author Organization [facility] Address [address] [facility] [address] [place] [address] Phone Care Team Providers Care Cork Sorter Name Role Phone Pardeep Du MD Primary Care Provider Pardeep Du MD Unavailable Jessie Smith RN Unavailable Delilah Cervantes DO Primary Care Provider Kirstin Reyes Primary Care Provide r Encounter Details Date Type Department Care Team (Late st Contact Info) Description 09/13/2021 Transcribe Orders Virtual Department [address] [place] [address] Pardeep Du MD [address] [facility], 2nd [place] [address] francisco [email or web address] Social History Tobacco Use Types Packs/Day Years [...] education for yourself related to: Learning the Japanese language? Completing high school, earning a high [...] documented as of this encounter Care Teams Cork Sorter Relationship Specialty Start Date End Date Pardeep Du MD [address] [place] [address], 2nd [place] [address] francisco [email or web address] PCP - General Internal Medicine 04/01/19 05/18/24 Delilah Cervantes DO [address] [place] [address] PCP - General Family Medicine 05/19/24 05/02/25 Kirstin Reyes PA [address] [place] [address] [place] [address] PCP - General Physician Hog Killer 05/03/25 Pardeep Du MD [address] [place] [address], 2nd [place] [address] francisco [email or web address] Insurance Assigned Provider 08/08/19 07/06/23 Jessie Smith, RN [address] [place] [address] [email or web address] PHCM Nailing Machine Operator Automatic 12/12/22 01/24/23 documented as of this encounter Additional Source Comments The information contained in this document represents components of the legal health record. It is not the complete legal health record.[facility]
--- OUTSIDE RECORDS SUMMARY | 2025-10-13 16:32 | XMS_ITS | Encounter Summary ---
Author Organization [facility] Address [address] [facility] [address] [place] [address] Phone Care Team Providers Care Hoisting Pile Driving Engineer Name Role Phone Pardeep Du MD Primary Care Provider Pardeep Du MD Unavailable [phone] Jessie Smith RN Unavailable [phone] Delilah Cervantes DO Primary Care Provider Kirstin Reyes Primary Care Provide r Encounter Details Date Type Department Care Team (Late st Contact Info) Description 08/07/2021 Procedure Pass [facility], Ct Scan - [address] [address] Social History Tobacco Use Types Packs/Day Years [...] education for yourself related to: Learning the Namibian language? Completing high school, earning a high [...] 7:48 PM EDT Aniyah Price RN * [place] Suicide Severity Rating Scale (Screener/Recent Self-Report) Question [...] documented as of this encounter Care Teams Hoisting Pile Driving Engineer Relationship Specialty Start Date End Date Pardeep Du MD [address] [place] [address] francisco PCP - General Internal Medicine 04/01/19 05/18/24 Delilah Cervantes DO [address] [place] [address] PCP - General Family Medicine 05/19/24 05/02/25 Kirstin Reyes PA [address] [place] [address] [place] [address] PCP - General Physician Optical Sales Associate 05/03/25 Pardeep Du MD [address] [place] [address] francisco Insurance Assigned Provider 08/08/19 07/06/23 Jessie Smith, RN [address] [place] [address] [email or web address] PHCM Copper Flotation Operator 12/12/22 01/24/23 documented as of this encounter Additional Source Comments The information contained in this document represents components of the legal health record. It is not the complete legal health record.[facility]
--- OUTSIDE RECORDS SUMMARY | 2025-10-13 16:32 | XMS_ITS | Encounter Summary ---
Author Organization [facility] Address [address] [facility] [address] [place] [address] Phone Care Team Providers Care Manager Gyn Name Role Phone Pardeep Du MD Primary Care Provider [phone] Pardeep Du MD Unavailable [phone] Jessie Smith RN Unavailable [phone] Delilah Cervantes DO Primary Care Provider Kirstin Reyes Primary Care Provide r Encounter Details Date Type Department Care Team (Late st Contact Info) Description 12/09/2022 Procedure Pass [facility] [address] [place] [address] Social History Tobacco Use Types Packs/Day Years [...] as of this encounter Care Teams Manager Gyn Relationship Specialty Start Date End Date Pardeep Du MD [address] [place] [address], 2nd [place] [address] francisco PCP - General Internal Medicine 04/01/19 05/18/24 Delilah Cervantes DO [address] [place] [address] PCP - General Family Medicine 05/19/24 05/02/25 Kirstin Reyes PA [address] [place] [address] [place] [address] PCP - General Physician Precision Honing Machine Operator 05/03/25 Pardeep Du MD [address] [place] [address], 2nd [place] [address] francisco [email or web address] Insurance Assigned Provider 08/08/19 07/06/23 Jessie Smith, RN [address] [place] [address] [email or web address] PHCM Waste Oil Pumper 12/12/22 01/24/23 documented as of this encounter Additional Source Comments The information contained in this document represents components of the legal health record. It is not the complete legal health record.[facility]
--- OUTSIDE RECORDS SUMMARY | 2025-10-13 16:32 | XMS_ITS | Encounter Summary ---
Author Organization [facility] Address [address] [facility] [address] [place] [address] Phone Care Team Providers Care Blower Installer Name Role Phone Pardeep Du MD Primary Care Provider [phone] Pardeep Du MD Unavailable [phone] Jessie Smith RN Unavailable [phone] Delilah Cervantes DO Primary Care Provider Kirstin Reyes Primary Care Provide r Encounter Details Date Type Department Care Team (Late st Contact Info) Description 06/30/2019 Procedure Pass [facility], [address] [place] [address] Social History Tobacco Use Types Packs/Day Years [...] education for yourself related to: Learning the Palestinian language? Completing high school, earning a high [...] documented as of this encounter Care Teams Blower Installer Relationship Specialty Start Date End Date Pardeep Du MD [address] [place] [address], 2nd [place] [address] [email or web address] PCP - General Internal Medicine 04/01/19 05/18/24 Delilah Cervantes DO [address] [place] [address] [place] [address] PCP - General Family Medicine 05/19/24 05/02/25 Kirstin Reyes PA [address] [place] [address] [place] [address] PCP - General Physician Manager Nicu 05/03/25 Pardeep Du MD [address] [place] [address], 2nd [place] [address] francisco [email or web address] Insurance Assigned Provider 08/08/19 07/06/23 Jessie Smith, RN [address] [place] [address] [email or web address] PHCM Medical Device Sales Consultant 12/12/22 01/24/23 documented as of this encounter Additional Source Comments The information contained in this document represents components of the legal health record. It is not the complete legal health record.[facility]
--- OUTSIDE RECORDS SUMMARY | 2025-10-13 16:33 | XMS_ITS | Encounter Summary ---
Author Organization [facility] Address [address] [facility] [address] [place] [address] Phone Care Team Providers Care Women'S Activities Adviser Name Role Phone Pardeep Du MD [...] CONTRAST Gilda Carranza PA-C Phone: tel: fax: mailto:[email or web address] Referral ID Status Reason Start Date Expiration Date Visits Re quested Visits Authorized [id number] Closed 07/07/2024 09/05/2024 1 1 Encounter Details Date Type Department Care Team (Latest Contact Info) Description 04/06/2024 Transcribe Orders Virtual Department 30 [place] [address] Gilda Carranza PA-C [address] [place] [address] [email or web address] LLQ abdominal pain (Primary Dx); Constipation, unspecified [...] llq abdomen pain, left lower quadrant [facility] as well as constipation [...] documented as of this encounter Care Teams Women'S Activities Adviser Relationship Specialty Start Date End Date Pardeep Du MD [address] [place] [address], 2nd [place] [address] francisco [email or web address] PCP - General Internal Medicine 04/01/19 05/18/24 Delilah Cervantes DO [address] [place] [address] PCP - General Family Medicine 05/19/24 05/02/25 Kirstin Reyes PA [address] [place] [address] [place] [address] PCP - General Physician Associate Professor Of Forestry 05/03/25 documented as of this encounter Additional Source Comments The information contained in this document represents components of the legal health record. It is not the complete legal health record.[facility]
--- OUTSIDE RECORDS SUMMARY | 2025-10-13 16:33 | XMS_ITS | Encounter Summary ---
Author Organization [facility] Address [address] [facility] [address] [place] [address] Phone Care Team Providers Care Special Distribution Clerk Name Role Phone Pardeep Du MD Primary Care Provider Delilah Cervantes DO Primary Care Provider Kirstin Reyes Primary Care Provide r Encounter Details Date Type Department Care Team (Late st Contact Info) Description 04/06/2024 Procedure Pass , Ct Scan - [address] [address] Social History Tobacco Use Types Packs/Day Years [...] as of this encounter Care Teams Special Distribution Clerk Relationship Specialty Start Date End Date Pardeep Du MD [address] [place] [address], 2nd [place] [address] francisco [email or web address] PCP - General Internal Medicine 04/01/19 05/18/24 Delilah Cervantes DO [address] [place] [address] PCP - General Family Medicine 05/19/24 05/02/25 Kirstin Reyes PA [address] [place] [address] [place] [address] PCP - General Physician Drone Pilot 05/03/25 documented as of this encounter Additional Source Comments The information contained in this document represents components of the legal health record. It is not the complete legal health record.[facility]
--- OUTSIDE RECORDS SUMMARY | 2025-10-13 16:33 | XMS_ITS | Encounter Summary ---
Author Organization [facility] Address [address] [facility] [address] [place] [address] Phone Care Team Providers Care Ward Supervisor Name Role Phone Pardeep Du MD Primary Care Provider [phone] Pardeep Du MD Unavailable Jessie Smith RN Unavailable Delilah Cervantes DO Primary Care Provider Kirstin Reyes Primary Care Provide r Encounter Details Date Type Department Care Team (Late st Contact Info) Description 07/23/2019 Ancillary Orders [facility] 30 [place] [address] Pardeep Du MD [address] [facility], 2nd [place] [address] francisco [email or web address] Chest pain, unspecified type Social [...] AM EDT) Max BP Systolic 130 mmHg [facility] Max BP Diastolic 70 mmHg [facility] Max HR 88 BPM [facility] Resting HR 57 BPM [facility] Resting BP Systolic 126 mmHg [facility] Resting BP Diastolic 78 mmHg [facility] Peak METS 1.0 METS [facility] Peak HR 87 BPM [facility] Anatomical Region Laterality Modality Heart Other [...] the Tc99m Sestamibi by the nuclear medicine pet ct technologist. Patient tolerated infusion without complications. Test [...] documented as of this encounter Care Teams Ward Supervisor Relationship Specialty Start Date End Date Pardeep Du MD [address] [place] [address], 2nd [place] [address] francisco [email or web address] PCP - General Internal Medicine 04/01/19 05/18/24 Delilah Cervantes DO [address] [place] [address] PCP - General Family Medicine 05/19/24 05/02/25 Kirstin Reyes PA [address] [place] [address] [place] [address] PCP - General Physician Rock Contractor 05/03/25 Pardeep Du MD [address] [place] [address], 2nd [place] [address] francisco [email or web address] Insurance Assigned Provider 08/08/19 07/06/23 Jessie Smith, RN [address] [place] [address] [email or web address] PHCM Bee Robber 12/12/22 01/24/23 documented as of this encounter Additional Source Comments The information contained in this document represents components of the legal health record. It is not the complete legal health record.[facility]
--- OUTSIDE RECORDS SUMMARY | 2025-10-13 16:33 | XMS_ITS | Encounter Summary ---
Author Organization [facility] Address [address] [facility] [address] [place] [address] Phone Care Team Providers Care Peanut Vendor Name Role Phone Helen Delilah Primary Care Provider Kirstin Reyes Primary Care Provide r Encounter Details Date Type Department Care Team (Latest Contact Info) Description 08/06/2024 Transcribe Orders Virtual Department 30 [place] [address] Gilda Carranza PA-C [address] [place] [address] [email or web address] Lesion of ovary (Primary Dx) Social History [...] documented as of this encounter Care Teams Peanut Vendor Relationship Specialty Start Date End Date Delilah Cervantes DO [address] [place] [address] [place] [address] PCP - General Family Medicine 05/19/24 05/02/25 Kirstin Reyes PA [address] [place] [address] [place] [address] PCP - General Physician Classifications Officer Cc/Cm 05/03/25 documented as of this encounter Additional Source Comments The information contained in this document represents components of the legal health record. It is not the complete legal health record.[facility]
--- OUTSIDE RECORDS SUMMARY | 2025-10-13 16:33 | XMS_ITS | Encounter Summary ---
Author Organization [facility] Address [address] [facility] [address] [place] [address] Phone Care Team Providers Care Middle School Math Teacher Name Role Phone Pardeep Du MD Primary Care Provider [phone] Pardeep Du MD Unavailable [phone] Jessie Smith RN Unavailable [phone] Delilah Cervantes DO Primary Care Provider Kirstin Reyes Primary Care Provide r Encounter Details Date Type Department Care Team (Late st Contact Info) Description 06/02/2019 Procedure Pass [facility], [address] [place] [address] Social History Tobacco Use Types Packs/Day Years [...] education for yourself related to: Learning the Syrian language? Completing high school, earning a high [...] documented as of this encounter Care Teams Middle School Math Teacher Relationship Specialty Start Date End Date Pardeep Du MD [address] [place] [address], 2nd [place] [address] francisco PCP - General Internal Medicine 04/01/19 05/18/24 Delilah Cervantes DO [address] [place] [address] PCP - General Family Medicine 05/19/24 05/02/25 Kirstin Reyes PA [address] [place] [address] [place] [address] PCP - General Physician Benefits Administrator 05/03/25 Pardeep Du MD [address] [place] [address], 2nd [place] [address] francisco [email or web address] Insurance Assigned Provider 08/08/19 07/06/23 Jessie Smith, RN [address] [place] [address] [email or web address] PHCM Ladle Patcher 12/12/22 01/24/23 documented as of this encounter Additional Source Comments The information contained in this document represents components of the legal health record. It is not the complete legal health record.[facility]
--- OUTSIDE RECORDS SUMMARY | 2025-10-13 16:33 | XMS_ITS | Encounter Summary ---
Author Organization [facility] Address [address] [facility] [address] [place] [address] Phone Care Team Providers Care Geotechnical Intern Name Role Phone Pardeep Du MD Primary Care Provider [phone] Pardeep Du MD Unavailable [phone] Delilah Cervantes DO Primary Care Provider [phone] Kirstin Reyes Primary Care Provide r Encounter Details Date Type Department Care Team (Late st Contact Info) Description 04/05/2023 Procedure Pass [facility], [facility] [address] [place] [address] Social History Tobacco Use Types Packs/Day Years [...] documented as of this encounter Care Teams Geotechnical Intern Relationship Specialty Start Date End Date Pardeep Du MD [address] [place] [address], 2nd [place] [address] francisco PCP - General Internal Medicine 04/01/19 05/18/24 Delilah Cervantes DO [address] [place] [address] PCP - General Family Medicine 05/19/24 05/02/25 Kirstin Reyes PA [address] [place] [address] [place] [address] PCP - General Physician Shot Tube Machine Tender 05/03/25 Pardeep Du MD [address] [place] [address], 2nd [place] [address] francisco [email or web address] Insurance Assigned Provider 08/08/19 07/06/23 documented as of this encounter Additional Source Comments The information contained in this document represents components of the legal health record. It is not the complete legal health record.[facility]
--- OUTSIDE RECORDS SUMMARY | 2025-10-13 16:33 | XMS_ITS | Encounter Summary ---
Author Organization [facility] Address [address] [facility] [address] [place] [address] Phone Care Team Providers Care Fisher Quahog Name Role Phone Pardeep Du MD Primary Care Provider Pardeep Du MD Unavailable Delilah Cervantes DO Primary Care Provider Kirstin Reyes Primary Care Provide r Encounter Details Date Type Department Care Team (Late st Contact Info) Description 05/06/2023 Ancillary Orders [facility] [address] [place] [address] Pardeep Du MD [address] [facility], 2nd [place] [address] francisco [email or web address] Abnormal finding on [...] documented as of this encounter Care Teams Fisher Quahog Relationship Specialty Start Date End Date Pardeep Du MD [address] [place] [address], 2nd [place] [address] francisco PCP - General Internal Medicine 04/01/19 05/18/24 Delilah Cervantes DO [address] [place] [id number] PCP - General Family Medicine 05/19/24 05/02/25 Kirstin Reyes PA [address] [place] [address] [place] [address] PCP - General Physician Cosmetology Teacher 05/03/25 Pardeep Du MD [address] [place] [address], 2nd [place] [address] francisco [email or web address] Insurance Assigned Provider 08/08/19 07/06/23 documented as of this encounter Additional Source Comments The information contained in this document represents components of the legal health record. It is not the complete legal health record.[facility]
--- OUTSIDE RECORDS SUMMARY | 2025-10-13 16:33 | XMS_ITS | Encounter Summary ---
Author Organization [facility] Address [address] [facility] [address] [place] [address] Phone Care Team Providers Care Refinery Operator Polymerization Plant Name Role Phone Pardeep Du MD Primary Care Provider Pardeep Du MD Unavailable [phone] Jessie Smith RN Unavailable [phone] Delilah Cervantes DO Primary Care Provider Kirstin Reyes Primary Care Provide r Encounter Details Date Type Department Care Team (Late st Contact Info) Description 10/04/2021 Procedure Pass [facility], [facility] [address] [place] [address] Social History Tobacco Use Types Packs/Day Years [...] education for yourself related to: Learning the [place] language? Completing high school, earning a high [...] documented as of this encounter Care Teams Refinery Operator Polymerization Plant Relationship Specialty Start Date End Date Pardeep Du MD [address] [place] [address], 2[address] [place] [address] francisco PCP - General Internal Medicine 04/01/19 05/18/24 Delilah Cervantes DO [address] [place] [id number] PCP - General Family Medicine 05/19/24 05/02/25 Kirstin Reyes PA [address] [place] [address] [place] [address] PCP - General Physician Project Manager/Team Coach 05/03/25 Pardeep Du MD [address] [place] [address], 2[address] [place] [address] francisco [email or web address] Insurance Assigned Provider 08/08/19 07/06/23 Jessie Smith, RN [address] [place] [id number] [email or web address] [place] Demonstrator 12/12/22 01/24/23 documented as of this encounter Additional Source Comments The information contained in this document represents components of the legal health record. It is not the complete legal health record.[facility]
--- OUTSIDE RECORDS SUMMARY | 2025-10-13 16:34 | XMS_ITS | Encounter Summary ---
Author Organization [facility] Address [address] [place] [address] Phone Care Team Providers Care Fire Sprinkler Installer Name Role Phone Pardeep Du MD Primary Care Provider [phone] Pardeep Du MD Unavailable [phone] Jessie Smith RN Unavailable [phone] Delilah Cervantes DO Primary Care Provider [phone] Kirstin Reyes Primary Care Provide r Encounter Details Date Type Department Care Team (Late st Contact Info) Description 03/23/2021 Procedure Pass [facility], [address] [place] [address] Social History Tobacco Use Types Packs/Day Years [...] documented as of this encounter Care Teams Fire Sprinkler Installer Relationship Specialty Start Date End Date Pardeep Du MD [address] [place] [address], 2nd [place] [address] francisco PCP - General Internal Medicine 04/01/19 05/18/24 Delilah Cervantes DO [address] [place] [address] PCP - General Family Medicine 05/19/24 05/02/25 Kirstin Reyes PA [address] [place] [address] [place] [address] PCP - General Physician Cushion Cover Inspector 05/03/25 Pardeep Du MD [address] [place] [address], [address] [place] [address] francisco [email or web address] Insurance Assigned Provider 08/08/19 07/06/23 Jessie Smith, RN [address] [place] [id number] [email or web address] PHCM Ball Sorter 12/12/22 01/24/23 documented as of this encounter Additional Source Comments The information contained in this document represents components of the legal health record. It is not the complete legal health record.[facility]
--- OUTSIDE RECORDS SUMMARY | 2025-10-13 16:34 | XMS_ITS | Clinical Summary ---
Author Organization [facility] Address [address] [facility] [address] [place] [address] Phone Care Team Providers Care Barrel Line Operator Name Role Phone Kirstin Reyes Primary Care [...] would like to switch her doctors to [facility]. Referral placed. Assessment & Plan [...] 4:55 PM EST): This is a 52-year-old Tanzanian-speaking woman who I saw using a security systems manager today who has lost about 7 and [...] 12:16 PM EST): This is a 52-year-old Tanzanian-speaking woman who started the program at [facility] and did not lose very much weight on the program. The patient is now restarting the program at [facility] in an effort to [...] protein shake or a protein bar or Colombian yogurt or cottage cheese to be consumed [...] weight loss with the bariatric surgeons at [facility]. She is preparing for surgery. [...] this topic Medical Devices Implanted Type Area Barrel Inspector Tight Device Identifier Shelf Expiration Date Model / Serial / Lot System Implant Achilles Speedbridge [employer]ocomposite - [id number] Implanted:Qty: 1 on 06/20/2022 by Drake Canales MD at [facility] Left: Ankle ARTHREX 03/27/2025 [id number] / / [id number] Procedures Procedure Name Priority Date/Time Associated Diagnosis [...] Marion MD - 05/03/2025 10:24 AM EDT [facility] Patient Name: Heidichapo Gupta Attending MD:: LANI MARION MD, Procedure Date: 05/03/2025 10:24 AM Date of : 1970 Age: 54 Admit Type: Outpatient Gender: Female Room: [place] [address] Referring MD: Kirstin Reyes Exam Type: Colonoscopy [...] monitored continuously. The Olympus adult variable colonoscope [id number] #[id number] was introduced through the anus and [...] 10:24 AM Procedure Code(s): --- Professional --- 33549, Colonoscopy, flexible; with removal of tumor(s), polyp(s), or other lesion(s) by snare technique --- Technical --- 89955, Colonoscopy, flexible; with removal of tumor(s), polyp(s), or other lesion(s) by snare technique CPT copyright 2021 [employer]. All rights reserved. The codes documented in this report are preliminary and upon medical sonographer reviewmay be revised to meet current compliance requirements. Procedure Date: 05/03/2025 10:24:[address] [place] [address] Kirstin GRAJEDA GI PROCEDURE ORDERABL ES [...] (12/09/2022 4:15 AM EST) HDL 66 mg/dL [facility] Comment: Interpretation <40 mg/dL: Low HDL cholesterol (major risk factor for CHD) Greater than or equal to 60 mg/dL: High HDL cholesterol ( negative risk factor for CHD) HDL - cholesterol is affected by a number of factors, e.g. smoking, excerise, hormones, sex and age. CHOLESTEROL 163 0 - 240 mg/dL [facility] TRIGLYCERIDES 73 30 - 160 mg/dL [facility] LDL 82 50 - 129 mg/dL [facility] Comment: LDL levels in terms of risk for coronary heart disease: <100 mg/dL: Optimal 100-129 mg/dL: Near or above optimal 130-159 mg/dL: Borderline high 160-189 mg/dL: High >190 mg/dL: Very High CARDIAC RISK RATIO 2.5(L) 3.3 - 4.4 [facility] Blood 12/09/2022 4:15 AM EST 12/09/2022 4:23 AM EST us Olinda Higgins MD LAB BLOOD BKR ORDERABLES Fi nal Result [address] [address] * Pap Smear (03/20/2022 12:00 AM EDT) 03/20/2022 03/21/2022 8:4 4 AM EDT Narrative SEE NARRATIVE - 03/27/2022 11:19 AM EDT [address] [address] Grab Driver: Emily Estevez MD BEARING RING ASSEMBLER Cytology Report FINAL DIAGNOSIS A. PAP SMEAR [...] 52, 56, 58, 59, 66, 68) by [facility] [employer] HR-HPV analysis. Clinical correlation is advised. This HPV test was performed at [facility], [address] [place] [address]. This test has been FDA approved for [facility] cervical cytology specimens. The accuracy and precision of this test for all other specimen sources has been verified in the Cytopathology Laboratory of the [facility] and has not been cleared or approved by the U.S. Food and Drug Administration. Clinical correlation is advised. CLINICAL HISTORY Date of Last Menstrual Period: 03-20-2022 Menstrual History: Bleeding, Abnormal Other Clinical Conditions: Screening Pap SPECIMEN SOURCE A: PAP SMEAR (SUREPATH) CE Patient Name: HEIDI GUPTA : 1970 (Age: 51) Sex: F Institution: [facility] Location: [facility] Date of Collection: 03/20/2022 Date of Reported: 03/27/2022 11:19 Results to: Ted Bello MD Ted Bello MD CYTOLOGY ORDERABLES Final Result SEE NARRATIVE * Hepatitis C antibody, qualitative (01/25/2022 8:02 AM EDT) HCV NON-REACTIV E NON-REACTI VE [facility] Blood 01/25/2022 8:02 AM EDT 01/25/2022 8:06 AM EDT Pardeep Du MD LAB BLOOD BKR ORDERABLES Fi nal Result [address] [address] * CT CHEST PULMONARY ANGIOGRAM (ACUTE) (09/26/2019 1:20 AM EST) Anatomical Region Laterality Modality Chest, Thoracic Vasculature Comp uted Tomography 09/26/2019 8:24 AM EST Impressions 09/26/2019 8:29 AM EST No pulmonary embolism demonstrated. Peripheral subsegmental emboli could be occult on this examination. No focal airspace infiltrate or pleural effusion. These findings were relayed to the Emergency Department by the [facility] on 09/26/2019. Incidental non-obstructive left nephrolithiasis. TOTAL CTDIvol: 113.60 mGy POS - [id number] Narrative 09/26/2019 8:29 AM EST COMPARISON: 09/25/2019 [...] were relayed to the Emergency Department by [facility] on 09/26/2019. Incidental non-obstructive left nephrolithiasis. TOTAL CTDIvol: 113.60 mGy POS - [id number] us Dilshad Duncan DO IMG CT CHEST Final Result from Last 3 Months or Most Recently Relevant to Health Maintenance Insurance [employer]GRESSIVE INSURANCE Advance Directives For more information, please contact: [phone] (9AM - 5PM [facility], Saturday-Saturday) * Full Code (Latest Code Status on File) Date Activated Date Inactivated Comments 12/09/2022 3:44 AM Question Answer Comments Code Status Confirmed With: PatientFamily Care Teams Barrel Line Operator Relationship Specialty Start Date End Date Kirstin Reyes PA [address] [place] [address] PCP - General Physician Cyanide Case Hardener 05/03/25 Additional Source Comments The information contained in this document represents components of the legal health record. It is not the complete legal health record.[facility]
== END 2025-10-13 14:12 | disposition home or self-care (01) ==
LOC: HO.HSMC 12:36
PROVIDERS: Visit Provider Physician Assistant Medical
DX: G47.19 Other hypersomnia (principal); G47.33 Obstructive sleep apnea (adult) (pediatric); G47.34 Idiopathic sleep related nonobstructive alveolar hypoventilation
CPT/HCPCS: 99204

== ENCOUNTER → 2025-10-13 12:35 | Outpatient (BNVA) | payer OTHER, SELFPAY | PROVIDERS: Visit Provider Physician Assistant Medical | DX: G47.33 Obstructive sleep apnea (adult) (pediatric) (principal); G47.19 Other hypersomnia; G47.34 Idiopathic sleep related nonobstructive alveolar hypoventilation; G25.81 Restless legs syndrome; Z79.899 Other long term (current) drug therapy; Z71.89 Other specified counseling; Z99.89 Dependence on other enabling machines and devices | CPT/HCPCS: 99202 ==